=== PATIENT | female | born 2000 | race Caucasian/White ===

== ENCOUNTER 2018-05-16 02:29 | Emergency (ER) | payer OTHER, SELFPAY ==
--- OUTSIDE RECORDS SUMMARY | 2018-05-16 02:31 | XMS REPORT ---
:2000 [facility] Address [address] [place] [address] Dr. Carrington [address] [place] [id number] Care Team Providers Name Role Phone Unavailable Unavailable Unavailable Problems This patient has no known problems. Allergies, Adverse Reactions, Alerts This patient has no known allergies or adverse reactions. Medications This patient has no known medications.
--- NOTE | 2018-05-16 03:23 | EDPHYS ---
Physician Documentation [facility] Name: Marla Harmon Age: 17 yrs Sex: Female : 2000 Arrival Date: 05/16/2018 Time: 02:32 Bed 16 Private MD: ED Physician Parvez Sheth HPI: 05/16 03:12 This 17 yrs old Female presents to ER via Ambulatory with complaints of WILL roni TALK TO NURSE. 03:12 The patient presents with a possible exposure to a sexually transmitted disease, roni chlamydia. Onset: The symptoms/episode began/occurred 3 week(s) ago. Modifying factors: The symptoms are alleviated by nothing, the symptoms are aggravated by nothing. Associated signs and symptoms: The patient has no apparent associated signs or symptoms. Severity of symptoms: At their worst the symptoms were mild, in the emergency department the symptoms are unchanged. The patient is sexually active, reportedly has a single partner. The patient has not experienced similar symptoms in the past. 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 - Social history:: Smoking status: Patient uses tobacco products, denies chronic smoking, but will smoke occasionally. - Ebola Screening: : No symptoms or risks identified at this time. - Family history:: not pertinent. ROS: 03:12 Constitutional: Negative for fever, chills, and weight loss, Eyes: Negative for injury, roni pain, redness, and discharge, ENT: Negative for injury, pain, and discharge, Neck: Negative for injury, pain, and swelling, Cardiovascular: Negative for chest pain, palpitations, and edema, Respiratory: Negative for shortness of breath, cough, wheezing, and pleuritic chest pain, Abdomen/GI: Negative for abdominal pain, nausea, vomiting, diarrhea, and constipation, Back: Negative for injury and pain, : Negative for injury, bleeding, discharge, and swelling, Skin: Negative for injury, rash, and discoloration, Neuro: Negative for headache, weakness, numbness, tingling, and seizure, Psych: Negative for depression, anxiety, suicide ideation, homicidal ideation, and hallucinations, Allergy/Immunology: Negative for hives, rash, and allergies, Endocrine: Negative for neck swelling, polydipsia, polyuria, polyphagia, and marked weight changes, Hematologic/Lymphatic: Negative for swollen nodes, abnormal bleeding, and unusual bruising. 03:12 MS/extremity: Positive for pain. Exam: 03:12 Constitutional: This is a well developed, well nourished patient who is awake, alert, roni and in no acute distress. Head/Face: Normocephalic, atraumatic. Eyes: Pupils equal round and reactive to light, extra-ocular motions intact. Lids and lashes normal. Conjunctiva and sclera are non-icteric and not injected. Cornea within normal limits. Periorbital areas with no swelling, redness, or edema. ENT: Nares patent. No nasal discharge, no septal abnormalities noted. Tympanic membranes are normal and external auditory canals are clear. Oropharynx with no redness, swelling, or masses, exudates, or evidence of obstruction, uvula midline. Mucous membranes moist. Neck: Trachea midline, no thyromegaly or masses palpated, and no cervical lymphadenopathy. Supple, full range of motion without nuchal rigidity, or vertebral point tenderness. No Meningismus. Chest/axilla: Normal chest wall appearance and motion. Nontender with no deformity. No lesions are appreciated. Cardiovascular: Regular rate and rhythm with a normal S1 and S2. No gallops, murmurs, or rubs. Normal PMI, no JVD. No pulse deficits. Respiratory: Lungs have equal breath sounds bilaterally, clear to auscultation and percussion. No rales, rhonchi or wheezes noted. No increased work of breathing, no retractions or nasal flaring. Abdomen/GI: Soft, non-tender, with normal bowel sounds. No distension or tympany. No guarding or rebound. No evidence of tenderness throughout. Back: No spinal tenderness. No costovertebral tenderness. Full range of motion. Female : Normal external genitalia. Skin: Warm, dry with normal turgor. Normal color with no rashes, no lesions, and no evidence of cellulitis. MS/ Extremity: Pulses equal, no cyanosis. Neurovascular intact. Full, normal range of motion. Neuro: Awake and alert, GCS 15, oriented to person, place, time, and situation. Cranial nerves II-XII grossly intact. Motor strength 5/5 in all extremities. Sensory grossly intact. Cerebellar exam normal. Normal gait. Psych: Awake, alert, with orientation to person, place and time. Behavior, mood, and affect are within normal limits. Vital Signs: 02:49 BP 126 / 80; Pulse 103; Resp 18 S; Temp 98.4(O); Pulse Ox 100% on R/A; Weight 108.86 kg bb (R); Height 5 ft. 9 in. (175.26 cm) (R); Pain 6/10; 04:00 BP 121 / 82; Pulse 100; Resp 17; Pulse Ox 98% ; rr5 02:49 Body Mass Index 35.44 (108.86 kg, 175.26 cm) MDM: 02:50 Patient medically screened. [facility] 03:14 Data reviewed: vital signs, nurses notes, lab test result(s). [facility] 05/16 03:12 Order name: Urine Culture [facility] 05/16 03:42 Order name: Urine Dipstick--Ancillary (enter results) mn 05/16 03:42 Order name: Urine --Ancillary (enter results) mn 05/16 03:12 Order name: Urine Dipstick-Ancillary (obtain specimen); Complete Time: 03:44 [facility] 05/16 03:12 Order name: Urine Test (obtain specimen); Complete Time: 03:44 [facility] Administered Medications: 03:38 CANCELLED (Duplicate Order): Rocephin (cefTRIAXone) 500 mg IM once [facility] 03:50 Drug: Bactrim (160 mg-800 mg (DS) 1 tablet Route: PO; rr5 04:30 Follow up: Response: No adverse reaction rr5 03:51 Drug: Doxycycline 100 mg Route: PO; rr5 04:30 Follow up: Response: No adverse reaction rr5 03:54 Drug: Zithromax 1 grams Route: PO; rr5 04:30 Follow up: Response: No adverse reaction rr5 03:55 Drug: Rocephin (cefTRIAXone) 1 grams Route: IM; Site: left gluteus; rr5 04:30 Follow up: Response: No adverse reaction rr5 Disposition: 05/16/18 03:22 Discharged to Home. Impression: Pelvic and perineal pain - fear of std, Urinary tract infection, site not specified. - Condition is Stable. - Discharge Instructions: Dysuria, Pelvic Pain, Female, Sexually Transmitted Disease, Sexually Transmitted Disease, Kryt-yh-Vxcp, Pelvic Pain, Female, Vmml-uy-Nzmt. - Prescriptions for Doxycycline Hyclate 100 mg Oral Tablet - take 1 tablet by ORAL route every 12 hours; 20 tablet. Bactrim DS 800- 160 mg Oral Tablet - take 1 tablet by ORAL route every 12 hours for 5 days; 10 tablet. - Medication Reconciliation Form, Thank You Letter, Antibiotic Education, Prescription Opioid Use form. - Follow up: Private Physician; When: 2 - 3 days; Reason: Recheck today's complaints, Continuance of care, Re-evaluation by your physician. - Problem is new. - Symptoms have improved. Signatures: Dispatcher [employer] EDMS Parvez Sheth MD MD cha Ballard, Brenda, RN RN Ezio Alexandre RN RN rr5 Corrections: (The following items were deleted from the chart) 03:38 03:12 Rocephin (cefTRIAXone) 500 mg IM once ordered. [facility] 03:39 03:22 05/16/2018 03:22 Discharged to Home. Impression: Pelvic and perineal pain - fear roni of std. Condition is Stable. Forms are Medication Reconciliation Form, Thank You Letter, Antibiotic Education, Prescription Opioid Use. Follow up: Private Physician; When: 2 - 3 days; Reason: Recheck today's complaints, Continuance of care, Re-evaluation by your physician. Problem is new. Symptoms have improved. [facility] 04:31 03:39 05/16/2018 03:22 Discharged to Home. Impression: Pelvic and perineal pain - fear rr5 of std; Urinary tract infection, site not specified. Condition is Stable. Discharge Instructions: Pelvic Pain, Female, Sexually Transmitted Disease, Sexually Transmitted Disease, Evse-wt-Znml, Pelvic Pain, Female, Pcdh-ls-Eawy. Prescriptions for Doxycycline Hyclate 100 mg Oral Tablet - take 1 tablet by ORAL route every 12 hours; 20 tablet. and Forms are Medication Reconciliation Form, Thank You Letter, Antibiotic Education, Prescription Opioid Use. Follow up: Private Physician; When: 2 - 3 days; Reason: Recheck today's complaints, Continuance of care, Re-evaluation by your physician. Problem is new. Symptoms have improved. roni
--- NOTE | 2018-05-16 03:23 | ER ---
Nurse's Notes [facility] Name: Marla Harmon Age: 17 yrs Sex: Female : 2000 Arrival Date: 05/16/2018 Time: 02:32 Bed 16 Private MD: Diagnosis: Pelvic and perineal pain-fear of std;Urinary tract infection, site not specified Presentation: 05/16 02:46 Presenting complaint: Patient states: she either has a UTI or an STI pt may have been bb exposed to chlamydia, symptoms are burning with urination which started yesterday morning states she only has a normal vaginal discharge. Transition of care: patient was not received from another setting of care. Onset of symptoms was May 14, 2018. Risk Assessment: Do you want to hurt yourself or someone else? Patient reports no desire to harm self or others. Initial Sepsis Screen: Does the patient meet any 2 criteria? No. Patient's initial sepsis screen is negative. Does the patient have a suspected source of infection? No. Patient's initial sepsis screen is negative. Care prior to arrival: None. 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 - Social history:: Smoking status: Patient uses tobacco products, denies chronic smoking, but will smoke occasionally. - Ebola Screening: : No symptoms or risks identified at this time. - Family history:: not pertinent. Screenin:30 Abuse screen: Denies threats or abuse. Denies injuries from another. Nutritional rr5 screening: No deficits noted. Tuberculosis screening: No symptoms or risk factors identified. Fall Risk None identified. Total Key Fall Scale indicates No Risk (0-24 pts). Assessment: 03:30 General: Appears in no apparent distress. comfortable, Behavior is calm, cooperative, rr5 appropriate for age. Pain: Complains of pain in pelvis Pain does not radiate. Pain Quality of pain is described as aching, Pain began gradually, Is intermittent. Neuro: Level of Consciousness is awake, alert, obeys commands, Oriented to person, place, time, situation, Appropriate for age. Cardiovascular: Capillary refill < 3 seconds Patient's skin is warm and dry. Respiratory: Airway is patent Respiratory effort is even, unlabored, Respiratory pattern is regular, symmetrical. GI: No signs and/or symptoms were reported involving the gastrointestinal system. : Reports pelvic pain, exposed to person with STD. 03:30 EENT: No signs and/or symptoms were reported regarding the EENT system. Derm: No signs rr5 and/or symptoms reported regarding the dermatologic system. Musculoskeletal: No signs and/or symptoms reported regarding the musculoskeletal system. 04:20 Reassessment: Patient appears in no apparent distress at this time. Patient is alert, rr5 oriented x 3, equal unlabored respirations, skin warm/dry/pink. discharge instruction given and explained without complaints made. Vital Signs: 02:49 BP 126 / 80; Pulse 103; Resp 18 S; Temp 98.4(O); Pulse Ox 100% on R/A; Weight 108.86 kg bb (R); Height 5 ft. 9 in. (175.26 cm) (R); Pain 6/10; 04:00 BP 121 / 82; Pulse 100; Resp 17; Pulse Ox 98% ; rr5 02:49 Body Mass Index 35.44 (108.86 kg, 175.26 cm) bb ED Course: 02:32 Patient arrived in ED. es 02:48 Triage completed. bb 02:49 Arm band placed on Patient placed in an exam room, on a stretcher, on pulse oximetry. bb 02:50 Parvez Sheth MD is Attending Physician. roni 03:27 Ezio Mercado RN is Primary Nurse. rr5 03:30 Patient has correct armband on for positive identification. Bed in low position. Pulse rr5 ox on. NIBP on. 04:28 No provider procedures requiring assistance completed. Patient did not have IV access rr5 during this emergency room visit. Administered Medications: 03:38 CANCELLED (Duplicate Order): Rocephin (cefTRIAXone) 500 mg IM once roni 03:50 Drug: Bactrim (160 mg-800 mg (DS) 1 tablet Route: PO; rr5 04:30 Follow up: Response: No adverse reaction rr5 03:51 Drug: Doxycycline 100 mg Route: PO; rr5 04:30 Follow up: Response: No adverse reaction rr5 03:54 Drug: Zithromax 1 grams Route: PO; rr5 04:30 Follow up: Response: No adverse reaction rr5 03:55 Drug: Rocephin (cefTRIAXone) 1 grams Route: IM; Site: left gluteus; rr5 04:30 Follow up: Response: No adverse reaction rr5 Outcome: 03:22 Discharge ordered by MD. tamayo 04:28 Discharged to home ambulatory. rr5 04:28 Condition: stable 04:28 Discharge instructions given to patient, Instructed on discharge instructions, follow up and referral plans. medication usage, Demonstrated understanding of instructions, follow-up care, medications, Prescriptions given X 2. 04:31 Patient left the ED. rr5 Signatures: Parvez Sheth MD MD cha Salyer, Edna es Ballard, Brenda, RN RN Ezio Alexandre RN RN rr5
[2018-05-16] MEDS ORDERED: AZITHROMYCIN 250 MG TAB ONE (03:53)
[2018-05-16] MEDS ORDERED: SMZ./TMP. 800/160 MG TABLET ONE (03:53)
[2018-05-16] MEDS ORDERED: CEFTRIAXONE 1000 MG/VIAL ONE (03:53)
[2018-05-16] MEDS ORDERED: DOXYCYCLINE 100 MG CAP PO ONE (03:53)
[2018-05-16] MEDS ORDERED: WATER FOR INJ,STERILE 10 ML ONE (03:54)
[2018-05-16 04:18] LABS: Urine Blood 3+ (NEG); Urine Glucose NEGATIVE (NEG); Urine Protein 3+ (NEG); Urine Specific Gravity >1.030 (1.005-1.030)
[2018-05-16 04:38] VITALS: TEMP 98.4
[2018-05-16 04:39] VITALS: BP 121/82; O2SAT 98
== END 2018-05-16 04:31 | disposition home or self-care (01) ==
LOC: ER 02:29
DX: N39.0 Urinary tract infection, site not specified (principal); R10.2 Pelvic and perineal pain; Z20.2 Contact with and (suspected) exposure to infections with a predominantly sexual mode of transmission; Z72.0 Tobacco use
CPT/HCPCS: 81003; 81025; 87086; 87088; 96372; 99283

== ENCOUNTER 2019-06-11 12:04 | Emergency (ER) | payer SELFPAY ==
--- OUTSIDE RECORDS SUMMARY | 2019-06-11 12:06 | XMS REPORT ---
:2000 [facility] Address [address] [place] [address] Dr. Carrington [address] [place] [id number] Care Team Providers Name Role Phone Unavailable Unavailable Unavailable Problems This patient has no known problems. Allergies, Adverse Reactions, Alerts This patient has no known allergies or adverse reactions. Medications This patient has no known medications.
--- OUTSIDE RECORDS SUMMARY | 2019-06-11 12:06 | XMS REPORT | Summary of Care ---
:2000 Author Organization [facility] Address [address] [place] [id number] Care Team Providers Name Role Phone Aicha Mora [facility] Primary Care Provider Reason for Visit Reason Comments Follow-up Encounter Details Date Type Department Care Team Description 10/31/2018 Office Visit [facility]- Aicha Mora, Breakthrough bleeding on Nexplanon (Primary Dx); [facility] Chlamydia trachomatis infection of lower genitourinary sites [address] [facility] [address] [place] [address] [phone] Allergies No Known Allergiesdocumented as of this encounter (statuses as of 10/31/2018) Medications Medication Sig Dispensed Refills Start Date End Date Status azithromycin 500 mg TAKE 2 0 08/31/2018 Active tablet TABLETS BY MOUTH ONCE NOW FOR 1 DOSE diphenhydrAMINE Take 25 mg by 0 Discontinued (BENADRYL) 25 mg mouth every 6 9 capsule (six) hours as needed for Allergies. hydrocortisone 0.5 % Apply to 30 g 0 05/27/2015 Discontinued cream area(s) 2 9 (two) times daily. ecbdhcwv-yvltbofuw-on Place 4 Drops 10 mL 1 11/04/2015 Discontinued drocortisone in both ears 9 (CORTISPORIN OTIC 4 (four) SUSPENSION) times daily. 3.5-10,000-1 mg/mL-unit/mL-% otic susp documented as of this encounter (statuses as of 10/31/2018) Active Problems Problem Noted Date Breakthrough bleeding on Nexplanon 08/29/2018 Chlamydia trachomatis infection of lower genitourinary sites 08/29/[address] 07/19/2018 Well woman exam 07/03/2018 Contraceptive management 07/03/2018 Obesity (BMI 30-39.9) 07/03/2018 documented as of this encounter (statuses as of 10/31/2018) Immunizations Name Administration Dates Next Due HPV9 09/07/2018, 07/03/2018 documented as of this encounter Social History Tobacco Use Types Packs/Day Years Used Date Current Every Day Smoker Cigarettes 0.1 Started: 07/03/2016 Smokeless Tobacco: Never Used Alcohol Use Drinks/Week oz/Week Comments No Sex Assigned at Date Recorded Not on file Job Start Date Occupation Industry Not on file Not on file Not on file Travel History Travel Start Travel End No recent travel history available. documented as of this encounter Last Filed Vital Signs Vital Sign Reading Time Taken Comments Blood Pressure 122/72 10/31/2018 3:46 PM CDT Pulse 60 10/31/2018 3:46 PM CDT Temperature 36.9 C (98.5 F) 10/31/2018 3:46 PM CDT Respiratory Rate 16 10/31/2018 3:46 PM CDT Oxygen Saturation - - Inhaled Oxygen Concentration - - Weight 122.1 kg (269 lb 4 oz) 10/31/2018 3:46 PM CDT Height 175.3 cm (5' 9") 10/31/2018 3:46 PM CDT Body Mass Index 39.76 10/31/2018 3:46 PM CDT documented in this encounter Progress Notes Aicha Mora, JESSA - 10/31/2018 4:00 PM CDT Chief complaint: Chief Complaint Patient presents with Follow-up HPI Marla Harmon is a 17 year old here for follow up on breakthrough bleeding with nexplanon and chlamydia BOB. Pt reports bleeding is still irregular and frequent, but not as bothersome as previously. She is also concerned Nexplanon is making her gain weight and breasts sensitive. She does report excessive caffeine intake. Pt and partner treated for chlamydia with azithromycin on 09/04/18. Patient reports they did not wait 1-2 weeks to resume intercourse. Histories OB History Para Term AB Living 1 1 1 1 SAB TAB Ectopic Multiple Live Births 1 # Outcome Date GA Lbr Jakub/2nd Weight Sex Delivery Anes PTL Lv 1 Term 05/03/17 37w0d 7 lb 5 oz (3.317 kg) M NORMAL SPONT HANSEL Past Medical History: Diagnosis Date Anemia Ongoing, not on meds Breakthrough bleeding on Nexplanon 08/29/2018 Hypertension 2017 During Family History Problem Relation Age of Onset Heart Mother High cholesterol Brother Arthritis Maternal Grandmother Heart Maternal Grandmother Diabetes Maternal Grandmother Hypertension Maternal Grandmother Family Status Relation Name Status Mo Alive Bro Alive MGMo Alive No past surgical history on file. Social History Socioeconomic History Marital status: Single Spouse name: Not on file Number of children: Not on file Years of education: Not on file Highest education level: Not on file Occupational History Not on file Social Needs Financial resource strain: Not on file Food insecurity: Worry: Not on file Inability: Not on file Transportation needs: Medical: Not on file Non-medical: Not on file Tobacco Use Smoking status: Current Every Day Smoker Packs/day: 0.10 Types: Cigarettes Start date: 07/03/2016 Smokeless tobacco: Never Used Substance and Sexual Activity Alcohol use: No Drug use: No Sexual activity: Yes Partners: Male control/protection: None Comment: Last intercourse 06/25/2018 Lifestyle Physical activity: Days per week: Not on file Minutes per session: Not on file Stress: Not on file Relationships Social connections: Talks on phone: Not on file Gets together: Not on file Attends caodaism service: Not on file Active member of club or organization: Not on file Attends meetings of clubs or organizations: Not on file Relationship status: Not on file Intimate partner violence: Fear of current or ex partner: Not on file Emotionally abused: Not on file Physically abused: Not on file Forced sexual activity: Not on file Other Topics Concern Not on file Social History Narrative Patient lives with mom, grandmother. Patient feels safe at home. Patient has two cats. Social History Substance and Sexual Activity Sexual Activity Yes Partners: Male control/protection: None Comment: Last intercourse 06/25/2018 Labs I have reviewed the patient's labs. and Labs are pending. Radiology No new radiology. Allergies Marla has No Known Allergies. Medications Marla has a current medication list which includes the following prescription(s ): azithromycin. Review of Systems Constitutional: Positive for weight gain. Breasts: sensitivity Genitourinary: Positive for vaginal bleeding. Endocrine: Positive for weight gain. BP 122/72 (BP Location: Right arm, Patient Position: Sitting, BP CUFF SIZE: Adult Small) | Pulse 60 | Temp 36.9 C (98.5 F) (Oral) | Resp 16 | Ht 5' 9 " (1.753 m) | Wt 269 lb 4 oz (122.1 kg) | LMP 10/28/2018 (Approximate) | BMI 39.76 kg/m Pregravid BMI: Could not be calculated Physical Exam Vitals reviewed. Constitutional: She is oriented to person, place, and time. She appears well- developed and well-nourished. Her body habitus is obese. Pulmonary/Chest: Normal inspiratory effort. Neuro/Psychiatric: She has a normal mood and affect. She is oriented to person, place, and time. Assessment/Plan 1. Breakthrough bleeding on Nexplanon Improving, continue to monitor, patient will RTC if still bothersome in 2 months. Reviewed patient weight chart, no significant weight gain since Nexplanon insertion. Reviewed healthy diet and exerciserecommendations. Encouraged well fitting, supportive bra, avoidance of caffeinated beverages, chocolate, peanut butter, and OTC vitamin E supplement 2. Chlamydia trachomatis infection of lower genitourinary sites BOB today, Reviewed safe sex practices - GC & CHLAMYDIA AMPLIFIED ASSAY Discussed treatment options. Reviewed patient instructions and provided printed copy. This visit did not involve counseling and coordination that comprised more than 50% of the visit time. documented in this encounter Plan of Treatment Date Type Specialty Care Team Description 12/10/2018 [facility] Name Type Priority Associated Diagnoses Date/Time GC & CHLAMYDIA LAB Routine Chlamydia trachomatis 10/31/2018 3:56 PM AMPLIFIED ASSAY infection of lower CDT genitourinary sites Health Maintenance Due Date Last Done Comments PNEUMOCOCCAL 0-64 YEARS 2004 COMBINED SERIES (1 of 1 - PPSV23) MENINGOCOCCAL B VACCINES (1 of 2008 2 - Risk Bexsero 2-dose series) DTaP,Tdap,and Td Vaccines (1 - 2017 Tdap) INFLUENZA VACCINE 12/02/2018 HPV VACCINES (3 - Female 01/02/2019 09/07/2018, 3-dose series) 07/03/2018 CHLAMYDIA SCREENING 08/30/2019 08/29/2018, 07/03/2018 MENINGOCOCCAL VACCINE Aged Out No longer eligible based on patient's age to complete this topic documented as of this encounter Goals Goal Patient Goal Associated Recent Patient-Stated? Author Type Problems Progress Quit using Tobacco Use No bety Bolivar RN (cigarettes, smokeless, etc) documented as of this encounter Results Not on filedocumented in this encounter Visit Diagnoses Diagnosis Breakthrough bleeding on Nexplanon - Primary Metrorrhagia Chlamydia trachomatis infection of lower genitourinary sites documented in this encounter Insurance Payer Benefit Plan Subscriber ID Effective Phone Address Type / Group [facility] xxxxxxxxx 2018-Pres [phone] [place] [id number] [place] [address] documented as of this encounter Advance Directives Name Relationship Healthcare Agent Relationship Communication Tonya Harmon Mother Primary healthcare agent [facility]
--- OUTSIDE RECORDS SUMMARY | 2019-06-11 12:07 | XMS REPORT | Summary of Care ---
:2000 Author Organization [facility] Address [address] [place] [address] Care Team Providers Name Role Phone Aicha Mora Primary Care Provider Reason for Visit Reason Comments Appointment Encounter Details Date Type Department Care Team Description 12/19/[address] [facility] [address] [place] [address] [facility] [phone] [place] [address] Allergies No Known Allergiesdocumented as of this encounter (statuses as of 12/20/2018) Medications Medication Sig Dispensed Refills Start Date End Date Status azithromycin 500 mg TAKE 2 TABLETS BY 0 08/31/2018 Active tablet MOUTH ONCE NOW FOR 1 DOSE documented as of this encounter (statuses as of 12/20/2018) Active Problems Problem Noted Date Breakthrough bleeding on Nexplanon 08/29/2018 Chlamydia trachomatis infection of lower genitourinary sites 08/29/[address] 07/19/2018 Well woman exam 07/03/2018 Contraceptive management 07/03/2018 Obesity (BMI 30-39.9) 07/03/2018 documented as of this encounter (statuses as of 12/20/2018) Immunizations Name Administration Dates Next Due HPV9 [...] of this encounter Last Filed Vital Signs Not on filedocumented in this encounter Plan of Treatment Health Maintenance Due Date Last Done Comments PNEUMOCOCCAL 0-64 YEARS 2004 COMBINED SERIES (1 of 1 - PPSV23) MENINGOCOCCAL B VACCINES (1 of 2008 2 - Risk Bexsero 2-dose series) DTaP,Tdap,and Td Vaccines (1 - 2017 Tdap) INFLUENZA VACCINE (#1) 2018 HPV VACCINES (3 - Female 01/02/2019 09/07/2018, 3-dose series) 07/03/2018 CHLAMYDIA SCREENING 11/01/2019 10/31/2018, 08/29/2018, 07/03/2018 MENINGOCOCCAL VACCINE Aged Out No longer eligible based on patient's age to complete this topic documented as of this encounter Goals Goal Patient Goal Associated Recent Patient-Stated? Author Type Problems Progress Quit using Tobacco Use No bety Bolivar RN (cigarettes, smokeless, etc) documented as of this encounter Results Not on filedocumented in this encounter Insurance Payer Benefit Plan Subscriber ID Effective Phone Address Type / Group Dates [facility] xxxxxxxxx 2018-Prese [phone] Medicaid WOMEN nt 2006 [place] [address] documented as of this encounter Advance Directives Name Relationship Healthcare Agent Relationship Communication Tonya Eden Mother Primary healthcare agent Chris Jules Stepchild Second alternate healthcare agent
--- OUTSIDE RECORDS SUMMARY | 2019-06-11 12:07 | XMS REPORT | Summary of Care ---
:2000 Author Organization [facility] Address [address] [place] [address] Care Team Providers Name Role Phone Aicha Mora [facility] Primary Care Provider Reason for Visit Reason Comments Follow-up Encounter Details Date Type Department Care Team Description 10/31/2018 Office Visit [facility] Mora, Breakthrough bleeding on Nexplanon (Primary Dx); [facility] Chlamydia trachomatis infection of lower genitourinary sites [address] [facility] [address] [place] [address] [phone] Allergies No Known Allergiesdocumented as of this [...] cream area(s) 2 9 (two) times daily. [id number] Place 4 Drops 10 mL 1 11/04/2015 [...] file Gets together: Not on file Attends sikh service: Not on file Active member of [...] Description 12/10/2018 [facility] Name Type Priority Associated Diagnoses [...] ID Effective Phone Address Type / Group [facility] xxxxxxxxx 2018-Pres [phone] [address] Medicaid [place]OMEN nt [id number] [place] [address] documented as of this encounter Advance Directives Name Relationship Healthcare Agent Relationship Communication Tonya Harmon Mother Primary healthcare agent Chris Jules [facility]
--- OUTSIDE RECORDS SUMMARY | 2019-06-11 12:07 | XMS REPORT | Summary of Care ---
:2000 Author Organization [facility] - Health Address [address] [place] [address] Care Team Providers Name Role Phone Morgan Aicha GERMAIN Primary Care Provider Encounter Details Date Type Department Care Team Description 12/11/2018 Orders Only [facility] Doctor Unassigned, No [address] [facility] [place] [address] Allergies No Known Allergiesdocumented as of this encounter (statuses as of 12/11/2018) Medications Medication Sig Dispensed Refills Start Date End Date Status azithromycin 500 mg TAKE 2 TABLETS BY 0 08/31/2018 Active tablet MOUTH ONCE NOW FOR 1 DOSE documented as of this encounter (statuses as of 12/11/2018) Active Problems Problem Noted Date Breakthrough bleeding on Nexplanon 08/29/2018 Chlamydia trachomatis infection of lower genitourinary sites 08/29/[address] 07/19/2018 Well woman exam 07/03/2018 Contraceptive management 07/03/2018 Obesity (BMI 30-39.9) 07/03/2018 documented as of this encounter (statuses as of 12/11/2018) Immunizations Name Administration Dates Next Due HPV9 [...] filedocumented in this encounter Plan of Treatment Date Type Specialty Care Team Description 12/19/2018 Nurse Visit OB Satellites Visit, [facility] Nurse Health Maintenance Due Date Last Done Comments [...] smokeless, etc) documented as of this encounter Procedures Procedure Name Priority Date/Time Associated Diagnosis Comments NO SHOW OR MISSED Routine 12/11/2018 2:28 PM APPOINTMENT POLICY CDT ACKNOWLEDGEMENT documented in this encounter Results Not on filedocumented in this encounter Insurance Payer Benefit Plan Subscriber ID Effective Phone Address Type / Group Dates [facility] xxxxxxxxx 2018-Preskarli [phone] Medicaid WOMEN nt 2006 [place] [address] documented as of this encounter Advance Directives Name Relationship Healthcare Agent Relationship Communication Tonya Eden Mother Primary healthcare agent Chris Jules Steptrang Second alternate healthcare agent
--- NOTE | 2019-06-11 12:29 | ER ---
Nurse's Notes [facility] Name: Marla Harmon Age: 18 yrs Sex: Female : 2000 Arrival Date: 06/11/2019 Time: 12:05 Bed 12 Private MD: Diagnosis: Acute lymphadenitis of face, head and neck;Acute suppurative otitis media Presentation: 06/10 12:19 Chief complaint: Patient states: L ear pain that began 4 days ago. Coronavirus screen: ss The patient has NOT traveled to a country currently being monitored by the [facility][NOTE 3] within the last 14 days. Proceed with normal triage procedures. Ebola Screen: Patient denies exposure to infectious person. Patient denies travel to an Ebola-affected area in the 21 days before illness onset. Initial Sepsis Screen: Does the patient meet any 2 criteria? No. Patient's initial sepsis screen is negative. Does the patient have a suspected source of infection? No. Patient's initial sepsis screen is negative. Risk Assessment: Do you want to hurt yourself or someone else? Patient reports no desire to harm self or others. 12:19 Method Of Arrival: Ambulatory ss 12:19 Acuity: NOLBERTO 5 ss Historical: - Allergies: 12:21 NKDA; ss - Home Meds: 12:21 None [Active]; ss - PMHx: 12:21 None; ss - PSHx: 12:21 None; ss - Immunization history:: Adult Immunizations up to date. - Social history:: Smoking status: Patient reports the use of cigarette tobacco products, smokes one-half pack cigarettes per day. Screenin:30 Abuse screen: Denies threats or abuse. Denies injuries from another. Nutritional ss screening: No deficits noted. Tuberculosis screening: Never had TB. Fall Risk None identified. Assessment: 12:30 General: Appears uncomfortable, Behavior is calm, cooperative. Pain: Complains of pain ss in left ear Pain currently is 6 out of 10 on a pain scale. Quality of pain is described as aching. Neuro: Level of Consciousness is awake, alert, obeys commands, Oriented to person, place, time, situation. Cardiovascular: Capillary refill < 3 seconds is brisk in bilateral fingers. Respiratory: Airway is patent Respiratory effort is even, unlabored, Respiratory pattern is regular, symmetrical. EENT: Oral mucosa is moist. Derm: Skin is intact, is healthy with good turgor, Skin is dry, Skin is pink, warm \T\ dry. normal. Musculoskeletal: Circulation, motion, and sensation intact. Range of motion: intact in all extremities. Vital Signs: 12:19 BP 108 / 85; Pulse 98; Resp 14; Temp 98.1(TE); Pulse Ox 98% on R/A; Height 5 ft. 9 in. ss (175.26 cm); Pain 6/10; ED Course: 12:05 Patient arrived in ED. rg4 12:19 Edna Kennedy, NIRMAL is Primary Nurse. ss 12:20 Rene Leigh PA is PHCP. jr8 12:20 Kristian Waller MD is Attending Physician. jr8 12:20 Triage completed. ss 12:21 Arm band placed on right wrist. ss 12:30 Patient has correct armband on for positive identification. Bed in low position. Call ss light in reach. 12:42 No provider procedures requiring assistance completed. Patient did not have IV access ss during this emergency room visit. Administered Medications: No medications were administered Outcome: 12:29 Discharge ordered by . jr8 12:42 Discharged to home ambulatory. ss 12:42 Condition: good 12:42 Discharge instructions given to patient, Instructed on discharge instructions, follow up and referral plans. medication usage, Demonstrated understanding of instructions, follow-up care, medications, Prescriptions given X 1. 12:43 Patient left the ED. ss Signatures: Edna Kennedy RN RN Rene Leigh PA PA jr8 Maria R Rios rg4
--- NOTE | 2019-06-11 12:29 | EDPHYS ---
Physician Documentation [facility] Name: Marla Harmon Age: 18 yrs Sex: Female : 2000 Arrival Date: 06/11/2019 Time: 12:05 Bed 12 Private MD: ED Physician Kristian Waller HPI: 06/10 12:26 This 18 yrs old Female presents to ER via Ambulatory with complaints of Ear jr8 Pain. 12:26 The patient presents with pain, tenderness. The complaints affect the left ear. Onset: jr8 The symptoms/episode began/occurred acutely, yesterday. Modifying factors: The symptoms are alleviated by nothing, the symptoms are aggravated by touching. Associated signs and symptoms: The patient has no apparent associated signs or symptoms. Severity of symptoms: At their worst the symptoms were mild in the emergency department the symptoms are unchanged. The patient has not experienced similar symptoms in the past. The patient has not recently seen a physician. Historical: - Allergies: 12:21 NKDA; ss - Home Meds: 12:21 None [Active]; ss - PMHx: 12:21 None; ss - PSHx: 12:21 None; ss - Immunization history:: Adult Immunizations up to date. - Social history:: Smoking status: Patient reports the use of cigarette tobacco products, smokes one-half pack cigarettes per day. ROS: 12:26 Eyes: Negative for injury, pain, redness, and discharge, Neck: Negative for injury, jr8 pain, and swelling, Cardiovascular: Negative for chest pain, palpitations, and edema, Respiratory: Negative for shortness of breath, cough, wheezing, and pleuritic chest pain, Abdomen/GI: Negative for abdominal pain, nausea, vomiting, diarrhea, and constipation, Back: Negative for injury and pain, Skin: Negative for injury, rash, and discoloration, Neuro: Negative for headache, weakness, numbness, tingling, and seizure. 12:26 ENT: Positive for ear pain. Exam: 12:26 Head/Face: Normocephalic, atraumatic. Eyes: Pupils equal round and reactive to light, jr8 extra-ocular motions intact. Lids and lashes normal. Conjunctiva and sclera are non-icteric and not injected. Cornea within normal limits. Periorbital areas with no swelling, redness, or edema. Cardiovascular: Regular rate and rhythm with a normal S1 and S2. No gallops, murmurs, or rubs. Normal PMI, no JVD. No pulse deficits. Respiratory: Lungs have equal breath sounds bilaterally, clear to auscultation and percussion. No rales, rhonchi or wheezes noted. No increased work of breathing, no retractions or nasal flaring. Abdomen/GI: Soft, non-tender, with normal bowel sounds. No distension or tympany. No guarding or rebound. No evidence of tenderness throughout. Back: No spinal tenderness. No costovertebral tenderness. Full range of motion. Skin: Warm, dry with normal turgor. Normal color with no rashes, no lesions, and no evidence of cellulitis. MS/ Extremity: Pulses equal, no cyanosis. Neurovascular intact. Full, normal range of motion. Neuro: Awake and alert, GCS 15, oriented to person, place, time, and situation. Cranial nerves II-XII grossly intact. Motor strength 5/5 in all extremities. Sensory grossly intact. Cerebellar exam normal. Normal gait. 12:26 ENT: Exam is negative for nasal discharge, pharyngitis, exudate, External ear(s): are unremarkable, Ear canal(s): are normal, clear, TM's: dullness, on the left, erythema, that is mild, on the left. 12:26 Neck: ROM/movement: is normal, pain, is not appreciated, limited range of motion, is not appreciated, Meningeal signs: are not present, Kernig's sign is negative, Brudzinski's sign is negative, Lymph nodes: lymphadenopathy is appreciated, post auricular nodes, left side. Vital Signs: 12:19 BP 108 / 85; Pulse 98; Resp 14; Temp 98.1(TE); Pulse Ox 98% on R/A; Height 5 ft. 9 in. ss (175.26 cm); Pain 6/10; MDM: 12:20 Patient medically screened. 8 12:26 Data reviewed: vital signs, nurses notes, and as a result, I will discharge patient. jr8 Data interpreted: Pulse oximetry: on room air is 98 %. Interpretation: normal. Counseling: I had a detailed discussion with the patient and/or guardian regarding: the historical points, exam findings, and any diagnostic results supporting the discharge/admit diagnosis, the need for outpatient follow up, a family practitioner, to return to the emergency department if symptoms worsen or persist or if there are any questions or concerns that arise at home. Administered Medications: No medications were administered Disposition: 13:02 Co-signature as Attending Physician, Kristian Waller MD. rn Disposition: 06/11/19 12:29 Discharged to Home. Impression: Acute lymphadenitis of face, head and neck, Acute suppurative otitis media. - Condition is Stable. - Discharge Instructions: Otitis Media, Adult, Lymphadenopathy. - Prescriptions for Amoxicillin 875 mg Oral Tablet - take 1 tablet by ORAL route every 12 hours for 10 days; 20 tablet. - Medication Reconciliation Form, Thank You Letter, Antibiotic Education, Prescription Opioid Use form. - Follow up: Private Physician; When: 7 - 10 days; Reason: Recheck today's complaints, Continuance of care, Re-evaluation by your physician. - Problem is new. - Symptoms are unchanged. - Notes: Motrin over the counter 400-600 mg every 6 hours as needed for pain Signatures: Kristian Waller MD MD rn Smirch, Shelby, RN RN ss Roszak, Josh, PA PA jr8 Corrections: (The following items were deleted from the chart) 12:43 12:29 06/11/2019 12:29 Discharged to Home. Impression: Acute lymphadenitis of face, ss head and neck; Acute suppurative otitis media. Condition is Stable. Forms are Medication Reconciliation Form, Thank You Letter, Antibiotic Education, Prescription Opioid Use. Follow up: Private Physician; When: 7 - 10 days; Reason: Recheck today's complaints, Continuance of care, Re-evaluation by your physician. Problem is new. Symptoms are unchanged. jr8
[2019-06-11 12:58] VITALS: BP 108/85; TEMP 98.1; O2SAT 98
== END 2019-06-11 12:43 | disposition home or self-care (01) ==
LOC: ER 12:04
DX: H66.002 Acute suppurative otitis media without spontaneous rupture of ear drum, left ear (principal); L04.0 Acute lymphadenitis of face, head and neck; F17.210 Nicotine dependence, cigarettes, uncomplicated
CPT/HCPCS: 99282

== ENCOUNTER 2020-04-03 08:13 | Emergency (ER) | payer SELFPAY ==
--- OUTSIDE RECORDS SUMMARY | 2020-04-03 08:15 | XMS REPORT | Summary of Care ---
:[address] [facility] - Health Address [address] [place] [address] Care Team Providers Name Role Phone Emy Mora Primary Care Provider Encounter Details Date Type Department Care Team Description 03/16/[address] [facility] Doctor Unassigned, No [address] [facility] [place] [address] [address] [place] [address] Allergies No Known Allergiesdocumented as of this encounter (statuses as of 03/16/2020) Medications Medication Sig Dispensed Refills Start Date End Date Status azithromycin 500 mg TAKE 2 TABLETS BY 0 08/31/2018 Active tablet MOUTH ONCE NOW FOR 1 DOSE documented as of this encounter (statuses as of 03/16/2020) Active Problems Problem Noted Date Breakthrough bleeding on Nexplanon 08/29/2018 Chlamydia trachomatis infection of lower genitourinary sites 08/29/[address] 07/19/2018 Well woman exam 07/03/2018 Contraceptive management 07/03/2018 Obesity (BMI 30-39.9) 07/03/2018 documented as of this encounter (statuses as of 03/16/2020) Immunizations Name Administration Dates Next Due HPV9 09/07/2018, 07/03/2018 documented as of this encounter Social History Tobacco Use Types Packs/Day Years Used Date Current Every Day Smoker Cigarettes 0.1 Sta rted: 07/03/2016 Smokeless Tobacco: Never Used Alcohol Use Drinks/Week oz/Week Comments No Sex Assigned at Date Recorded Not on file documented as of this encounter Last Filed Vital Signs Not on filedocumented in this encounter Plan of Treatment Date Type Specialty Care Team Description 03/16/2020 Office Visit OB Satellites Hellen Benitez, METER CALIBRATOR [address] [facility] [address] [place], [place] [address] [phone] Health Maintenance Due Date Last Done Comments MENINGOCOCCAL B VACCINES (1 of 2008 2 - Risk Bexsero 2-dose series) Depression Screening 2010 WELL CARE VISIT: 12-21 YEARS 2010 (yearly) DTaP,Tdap,and Td Vaccines (1 - 2017 Tdap) HPV VACCINES (3 - 3-dose 01/07/2019 09/07/2018, series) 07/03/2018 CHLAMYDIA SCREENING 11/01/2019 10/31/2018, 08/29/2018, 07/03/2018 INFLUENZA VACCINE (#1) 2019 PAP SMEAR 12/22/2019 MENINGOCOCCAL VACCINE Aged Out No longer eligible based on patient's age to complete this to pic PNEUMOCOCCAL 0-64 YEARS Aged Out No longe r eligible based COMBINED SERIES on patient's age to complete this to pic documented as of this encounter Goals Goal Patient Goal Associated Recent Patient-Stated? Author Type Problems Progress Quit using Tobacco Use No bety Bolivar RN (cigarettes, smokeless, etc) documented as of this encounter Procedures Procedure Name Priority Date/Time Associated Diagnosis Comme nts CONSENT/REFUSAL FOR Routine 03/16/2020 1:06 PM CLOUD [employer] MAT[employer] EXPERT DIAGNOSIS AND TREATMENT documented in this encounter Results Not on filedocumented in this encounter Insurance Payer Benefit Plan Subscriber ID Effective Phone Address Typ e / Group Dates [facility] [id number] 2018-Prese [phone] Medicaid WOMEN nt [address] [place] [address] documented as of this encounter Advance Directives Name Relationship Healthcare Agent Relationship Co mmunication Tonya Harmon Mother Health Care Agent Chris [facility] Health Care Agent
--- OUTSIDE RECORDS SUMMARY | 2020-04-03 08:15 | XMS REPORT | Continuity of Care Document ---
:2000 Author Organization [facility] t Address [address] [place] [address] Dr. Zhang. [address] [place] [address] Care Team Providers Name Role Phone Dana Moran Attending Clinician Problems This patient has no known problems. Allergies, Adverse Reactions, Alerts This patient has no known allergies or adverse reactions. Medications This patient has no known medications. Procedures This patient has no known procedures. Encounters Start End Encounter Admission Attending Care Care Encounter Source Date/Time Date/Time Type Type Clinicians Facility Department ID 2020-03-16 2020-03-16 Office OSEI Benitez [id number] 13:09:12 14:29:45 Visit Hellen Cortez RESEARCH AND DEVELOPMENT SCIENTIST [id number] [facility] [id number] MATERNAL [id number] & CHILD [address] [place] [address] Results This patient has no known results.
--- OUTSIDE RECORDS SUMMARY | 2020-04-03 08:16 | XMS REPORT | Summary of Care ---
:2000 Author Organization [facility] Address [address] [place], [place] [id number] Care Team Providers Name Role Phone Emy Mora Primary Care Provider Reason for Visit Reason Comments Well Woman Exam Encounter Details Date Type Department Care Team Description [facility] surveillance of implantable subdermal contraceptive (Primary Dx); JESSA Cavazos Nexplanon in place; [address] [facility] wodc n exam; [address] [place] Need for prophylactic vaccination and in oculation against influenza; [place], [place] [address] Menorrhagia with regular cycle; [id number] Screen for STD (sexually transmitted dis ease); [phone] Class 3 s evere obesity with body mass index (BMI) of 40.0 to 44.9 in adult, unspecified obesity type, unspecified whether serious comorbidity present; BMI 40.0-44.9, adult Allergies No Known Allergiesdocumented as of this encounter (statuses as of 03/16/2020) Medications Medication Sig Dispensed Refills Start Date End Date Status azithromycin 500 mg TAKE 2 TABLETS BY 0 08/31/2018 Active tablet MOUTH ONCE NOW FOR 1 DOSE documented as of this encounter (statuses as of 03/16/2020) Active Problems Problem Noted Date Need for prophylactic vaccination and inoculation agai nst influenza 03/16/2020 Menorrhagia with regular cycle 03/16/2020 Class 3 severe obesity with body mass index (BMI) of 4 0.0 to 44.9 in 03/16/2020 adult, unspecified obesity type, unspecified whether s erious comorbidity present BMI 40.0-44.9, adult 03/16/2020 Breakthrough bleeding on Nexplanon 08/29/2018 Chlamydia trachomatis infection of lower genitourinary sites 08/29/[address] 07/19/2018 Well woman exam 07/03/2018 Screen for STD (sexually transmitted disease) 07/04/19 19 Obesity (BMI 30-39.9) 07/03/2018 documented as of this encounter (statuses as of 03/16/2020) Immunizations Name Administration Dates Next Due HPV9 09/07/2018, 07/03/2018 Influenza Virus Vaccine Quad .5 mL IM 6+ MO 03/16/2020 documented as of this encounter Social History Tobacco Use Types Packs/Day Years Used Date Current Every Day Smoker Cigarettes 0.1 Sta rted: 07/03/2016 Smokeless Tobacco: Never Used Tobacco Cessation: Ready to Quit: No; Co unseling Given: Yes Alcohol Use Drinks/Week oz/Week Comments Yes socially Alcohol Habits Answer Date Recorded How often do you have a drink containing alcohol? 2-4 times a month 03/16/2020 How many drinks containing alcohol do you have on a Not aske d 03/16/2020 typical day when you are drinking? How often do you have six or more drinks on one Not asked 03/16/2020 occasion? 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 documented as of this encounter Last Filed Vital Signs Vital Sign Reading Time Taken Comments Blood Pressure 142/84 03/16/2020 1:29 PM SYSTEM ADMINISTRATION MANAGER Pulse 109 03/16/2020 1:29 PM SYSTEM ADMINISTRATION MANAGER Temperature 37.5 C (99.5 F) 03/16/2020 1:29 PM SYSTEM ADMINISTRATION MANAGER Respiratory Rate 16 03/16/2020 1:29 PM SYSTEM ADMINISTRATION MANAGER Oxygen Saturation - - Inhaled Oxygen Concentration - - Weight 125.6 kg (277 lb) 03/16/2020 1:29 PM SYSTEM ADMINISTRATION MANAGER Height 175.3 cm (5' 9") 03/16/2020 1:29 PM SYSTEM ADMINISTRATION MANAGER Body Mass Index 40.91 03/16/2020 1:29 PM SYSTEM ADMINISTRATION MANAGER documented in this encounter Patient Instructions Patient InstructionsNely Hunter RN - 03/16/2020 1:15 PM CST Patient Education 5 Steps for Eating Healthier Changing the way you eat can improve your health. It can lower your cholesterol and blood pressure, and help you stay at a healthy weight. Your diet doesnt have to be bland and boring to be healthy.Just watch your calories and follow these steps: Step 1. Eat fewer unhealthy fats Choose more fish and lean meats instead of fatty cuts of meat. Skip butter and lard, and use less margarine. Pass on foods that have palm, coconut, or hydrogenated oils. Eat fewer high-fat dairy foods like cheese, ice cream, and whole milk. Get a heart-healthy cookbook and try some low-fat recipes. Step 2.Go light on salt Keep the saltshaker off the table. Limit high-salt ingredients, such as soy sauce, bouillon, and garlic salt. Instead of adding salt when cooking, season your food with herbs and flavorings. Try lemon, garlic, and onion, or salt-free herb seasonings. Limit convenience foods, such as boxed or canned foods and restaurant food. Read food labels and choose lower-sodium options. Step 3. Limit sugar Pause before you add sugars to pancakes, cereal, coffee, or tea. This includes white and brown table sugar, syrup, honey, and molasses. Cut your usual amount by half. Use non-sugar sweeteners. Stevia, aspartame, and sucralose can satisfy a sweet tooth without adding calories. Swap out sugar-filled soda and other drinks. Buy sugar-free or low-calorie beverages. Remember water is always the best choice. Read labels and choose foods with less added sugar. Keep in mind that dairy foods and foods with fruit will have some natural sugar. Cut the sugar in recipes by 1/3 to 1/2. Boost the flavor with extracts like almond, vanilla, or orange. Or add spices such as cinnamon or nutmeg. Step 4. Eatmore fiber Eat fresh fruits and vegetables every day. Boost your diet with whole grains. Go for oats, whole-grain rice, and bran. Add beans and lentils to your meals. Drink more water to match your fiber increase to help prevent constipation. Step 5. Pay attention to serving sizes Remember that a serving size is a standard measurement. It will let you track the amount of fat, calories, and other nutrients in the food you eat. Read the Nutrition Facts label on packaged foods to learn their serving sizes. Use serving sizes to assess how much food you put on your plate. Pay attention to your portions. How many servings are you eating? Keep in mind that your needs may change if youre more active or less active, or if you have other factors that change your calorie needs. Use your hand to help you measure serving sizes. For example: ? 1 teaspoon: This is about the size of the first joint of your thumb. ? 1 tablespoon: This is about the size of the first 2 joints of your thumb. ? 1 ounce: This is about what you can fit in your cupped hand. ? 2 to 3 ounces: This is about size of the palm of your hand. ? cup: This is also about what you can fit in your cupped hand. ? 1 cup: This is about the size of your fist. [employer] last reviewed this educational content on 10/02/201919996147-9633 [employer]. All rights reserved. This information is not intended as a substitute for professional medical care. Always follow your healthcare professional's instructions. Patient Education Clinical Breast Exam Many health organizations recommend a yearly clinical breast exam. This exam may be done by a chemistry lecturer, family healthcare provider, nurse practitioner, nurse mechanical systems design engineer, or specially trained nurse. Yearly breast exams help tomake surethat breast conditions are found early. Your healthcare providers role A healthcare professional knows the tests and follow-up care needed if a problem is found. Your clinical exam is also a great time to ask questions about breast self-exams. You can find out if yourechecking your breasts in the best way. Or you may want to ask how , breast implants, or breast reduction surgery affect the way you should check your breasts. Diagnostic tests If a clinical exam reveals a breast change, you may have other tests to find out more. These tests may include: Mammography. A low-dose X-ray of your breast tissue. Ultrasound. An imaging test that uses sound waves to create images of your breast. Biopsy. A small amount of breast tissue is removed by needle or by a cut (incision). The tissue is then checked under a microscope. Guidelines for having clinical breast exams The [employer] recommends that starting at age 29, you should have a clinical breast exam every 1 to 3 years. After age 40, have a clinical breast exam each year. If youre at higher risk for breast cancer, you may need exams more often. Risk factors for breast cancer may include: Being over 50 or postmenopausal Having a family history of breast cancer Having the BRCA1 or BRCA2 gene mutation or certain other gene mutations Having more menstrual periods due to starting menstruation early(before age 12) or having a late menopause (after age 55) Having no pregnancies Having a first after age 30 Being obese Having a history of radiation treatment to your chest area Exposure to GLORIA during your mother's Not being active Drinking too much alcohol Having dense breast tissue Taking hormone therapy after menopause Other health organizations have different recommendations. Talk with your healthcare provider about what is best for you. [employer] lea reviewed this educational content on 07/03/201919990856-4751 [employer]. All rights reserved. This information is not intended as a substitute for professional medical care. Always follow your healthcare professional's instructions. Patient Education Breast Health: Breast Self-Awareness What is breast self-awareness? Breast self-awareness is knowing how your breasts normally look and feel. Your breasts change as yougo through different stages of your life. So its important to learn what is normal for your breasts. Knowing about your breasts helps you spot any changes in them right away. Tell your healthcare provider about any changes. Why is breast self-awareness important? Many experts now say that women should focus on breast self-awareness instead of doing a breast self-examination (BSE). These experts include the [employer] and the [employer]. Some experts even advise not teaching women to do a BSE. Thats because research hasnt shown a clear benefit to doing BSEs. Breast self-awareness is different than a BSE. It isnt about following a certain method and schedule. Its about knowing what's normal for your breasts. That way you can spot even small changes right away. If you see any changes, tell your healthcare provider. Changes to look for Call your healthcare provider if you find any changes in your breasts that worry you. These changes may be: A lump Nipple discharge other than breast milk, especially if it's bloody Swelling A change in size or shape Skin changes, such as redness, thickening, or dimpling of the skin Swollen lymph nodes in the armpit Nipple problems, such as pain or redness If you find a lump Call your provider if you find lumpiness in one breast. Also call if you feel something different inthe tissue or feel a definite lump. Sometimes lumpiness may be due to menstrual changes. But there may be reason for concern. Your provider may want to see you right away if you have: Nipple discharge that is bloody Skin changes on your breast, such as dimpling or puckering Its okay to be upset if you find a lump. Be sure to call your provider right away. Remember that most breast lumps are benign. This means they are not cancer. [employer] last reviewed this educational content on 08/02/201919991389-4187 [employer]. All rights reserved. This information is not intended as a substitute for professional medical care. Always follow your healthcare professional's instructions. Patient Education Prevention Guidelines,Women Ages 18 to 39 Screening tests and vaccines are an important part of managing your health. A screening test is doneto find possible disorders or diseases in people who don't have any symptoms. The goal is to find a disease early so lifestyle changes can be made and you can be watched more closely to reduce the riskof disease, or to detect it early enough to treat it most effectively. Screening tests are not considered diagnostic, but are used to determine if more testing is needed. Health counseling is essential, too. Below are guidelines for these, for women ages 18 to 39. Talk with your healthcare provider tomake sure youre up-to-date on what you need. Screening Who needs it How often Alcohol misuse All women in this age group At routine exams Blood pressure All women in this age group Yearly checkup if your blood pressure is normal Normal blood pressure is less than 120/80 mm Hg If your blood pressure reading is higher than normal, follow the advice of your healthcare provider Breast cancer All women in this age group should talk with their healthcare providers about the needfor clinical breast exams (CBE)1 Clinical breast exam every 3 years1 Cervical cancer Women ages 21 and older Women between ages 21 and 29 should have a Pap test every 3years; women between ages 30 and 65 are advised to have a Pap test plus an HPV test every 5 years Chlamydia Sexually active women ages 24 and younger, and women at increased risk for infection Every 3 years if you're at risk or have symptoms Depression All women in this age group At routine exams Diabetes mellitus, type 2 Adults with no symptoms who are overweight or obese and have 1 or more other risk factors for diabetes At least every 3 years. Also, testing for diabetes during after the 24th week. Gonorrhea Sexually active women at increased risk for infection At routine exams Hepatitis C Anyone at increased risk At routine exams HIV All women At routine exams3 Obesity All women in this age group At routine exams Syphilis Women at increased risk for infection should talk with their healthcare provider At routine exams Tuberculosis Women at increased risk for infection should talk with their healthcare provider Ask your healthcare provider Vision All women in this age group At least 1 complete exam in your 20s, and 2 in your 30s Vaccine Who needs it How often Chickenpox (varicella) All women in this age group who have no record of this infection or vaccine2 doses; the second dose should be given 4 to 8 weeks after the first dose Hepatitis A Women at increased risk for infection should talk with their healthcare provider 2 doses given at least 6 months apart Hepatitis B Women at increased risk for infection should talk with their healthcare provider 3 doses over 6 months; second dose should be given 1 month after the first dose; the third dose should be given at least 2 months after the second dose and at least 4 months after the first dose Haemophilus influenzae Type B (HIB) Women at increased risk for infection should talk with their healthcare provider 1 to 3 doses Human papillomavirus (HPV) All women in this age group up to age 26 3 doses; the second dose should be given 1 to 2 months after the first dose and the third dose given 6 months after the first dose Influenza (flu) All women in this age group Once a year Measles, mumps, rubella (MMR) All women in this age group who have no record of these infections orvaccines 1 or 2 doses Meningococcal Women at increased risk for infection should talk with their healthcare provider 1 ormore doses Pneumococcal conjugate vaccine (PCV13)and pneumococcal polysaccharidevaccine(PPSV23) Women atincreased risk for infection should talk with their healthcare provider PCV13: 1 dose ages 19 to 65(protects against 13 types of pneumococcal bacteria) PPSV23: 1 to2 doses through age 64, or 1 dose at 65 or older (protects against 23 types of pneumococcal bacteria) Tetanus/diphtheria/pertussis (Td/Tdap) booster All women in this age group Td every 10 years, or a one-time dose of Tdap instead of a Td booster after age 18, then Td every 10 years Counseling Who needs it How often BRCA gene mutation testing for breast and ovarian cancer susceptibility Women with increased risk for having gene mutation When your risk is known Breast cancer and chemoprevention Women at high risk for breast cancer When your risk is known Diet and exercise Women who are overweight or obese When diagnosed, and then at routine exams Domestic violence Women at the age in which they are able to have children At routine exams Sexually transmitted infection prevention Women who are sexually active At routine exams Skin cancer Prevention of skin cancer in fair-skinned adults At routine exams Use of tobacco and the health effects it can cause All women in this age group Every visit 1 According to the ACS, women ages 20 to 39 years should have a clinical breast exam (CBE) as part of their routine health exam every 3 years. Breast self-exams are an option for women starting in their 20s.But the U.S. Preventive Services Task Force (USPSTF) does not recommend CBE. 2 Those who are 18 years old and not up-to-date on their childhood vaccines should get all appropriate catch-up vaccines recommended by the CDC. 3 The USPSTF recommends that all people ages 15 to 65 years be screened for HIV and those younger orolder people at increased risk. The CDC recommends that everyone between the ages of 13 and 64 get tested for HIV at least once as part of routine health care. [employer] last reviewed this educational content on 01/01/201719998737-8754 [employer]. All rights reserved. This information is not intended as a substitute for professional medical care. Always follow your healthcare professional's instructions. Patient Education What Are Sexually Transmitted Infections (STIs)? A sexually transmitted infection (STI) is an infection that is spread during sex. An STI can also becalled STD for sexually transmitted disease. You can become infected with an STI if you have sex with someone who has an STI. Any sex that involves the penis, vagina, anus, or mouth can spread these infections. Some STIs also spread through body fluids such as semen, vaginal fluid, or blood. Others spread through contact with infected skin. The most common STIs are chlamydia, genital warts , genital herpes, syphilis, HIV, gonorrhea, and trichomoniasis. Who is at risk? It doesnt matter if youre straight or dudley, male or female, young or old. Any person who has sex can get an STI. Your risk increases if: You have more than one partner. The more partners you have, the greater your risk. Your partner has other partners. If your partner is exposed to an STI, you could be, too. You or your partner have had sex with other people in the past. Either of you might be carrying an STI from an earlier partner. You have an STI. The STI may cause sores or other health problems that increase your risk for newinfections. Your risk will stay high unless you are treated for your current STI and change the behaviors that put you at risk. Prevent future problems Left untreated, certain STIs can lead to cancer or, rarely, . Some can harm unborn babies whosemothers are infected. Others can cause you to not be able to have children (sterility) or can affectchanges in behavior or your ability to think. You can prevent these problems with safer sex, regularcheckups, and early treatment. Always use a latex condom when you have sex. Get tested if youre at risk. And get treated early if you have an STI. Using a latex condom every time you have sex can reduce your risk of STIs. Getting checked The only sure way to know if you have an STI is to get checked by a healthcare provider. If you notice a change in how your body looks or feels, have it checked out. But keep in mind, STIs dont always show symptoms. So if youre at risk for STIs, get checked regularly. If you find you have an STI, have your partner get treatment. If not, his or her health is at risk. And left untreated, your partner could pass the STI back to you, or on to others. Common symptoms Be alert to any changes in your body and your partners body. Symptoms may appear in or near the vagina, penis, rectum, mouth, or throat. They may include: Unusual discharge Lumps, bumps, or rashes Sores that may be painful, itchy, or painless Itchy skin Burning with urination Pain in the pelvis, belly (abdomen), or rectum Bleeding from the rectum Even if you dont have symptoms You may have an STI even if you dont have symptoms. If you think you are at risk, get checked. Goto a clinic or to your healthcare provider. If your partner has an STI, you need to be tested even if you feel fine. Vaccines to prevent disease Vaccines are available to prevent hepatitis A and hepatitis B. These are 2 kinds of STIs. There is also a vaccine to prevent human papillomavirus (HPV). This is a virus that can be passed from person to person through sexual contact. Ask your healthcare provider whether any of these vaccines is right for you. [employer] lea reviewed this educational content on 03/03/201819995504-5679 [employer]. All rights reserved. This information is not intended as a substitute for professional medical care. Always follow your healthcare professional's instructions. Patient Education Understanding HPV (Human Papillomavirus) HPV (human papillomavirus) is a virus that causes warts. It can be hard to detect, so many people never even know they have it. Some types (strains) of HPV may cause warts on the hands, legs, or other parts of the body. These can spread from person to person. Other strains of HPV cause wartsin the genital area. A few of these strains can cause certain cancers: Cancers of the cervix, vagina, and vulva in women Cancers of the penis in men Cancers of the anus and back of the throat, including the base of the tongue and tonsils in both women and men . Treating genital forms of HPV now can help prevent serious health problems in the future. How was I infected? HPV is passed from person to person through contact with infected skin. Everyone with HPV has a different experience. Some people notice genital warts (condyloma) within a few months of exposure. In other people, warts take years to appear or may never appear. This makes it almost impossible to know when or by whom you were infected. How warts form HPV lives inside skin and mucous membrane (including in the mouth and vagina). The virus can make skin cells reproduce more often than they should. These extra skin cells build up into warts. 1. HPV invades the skin. 2. DNA from the virus enters skin cells. 3. HPV causes infected skin cells to multiply and form warts. 4. The virus sheds, allowing it to be passed to others. [employer] last reviewed this educational content on 09/01/201819990190-1554 The [employer]. [address] [place] [address], [place] [address]. All rights reserved. This information is not intended as a substitute for professional medical care. Always follow your healthcare professional's instructions. Patient Education Understanding HIV and AIDS It's important to know how HIV can get into your body and what happens once its there. Then youll be better prepared to protect yourself or others against this virus. A person with HIV can look and feel perfectly healthy. But that person can give HIV to others as soon as he or she is infected with the virus. Having unsafe or unprotected sex or sharing needles puts you at risk for HIV. Talk with your healthcare provider about ways to protect yourself or a loved one from getting HIV. How HIV infection progresses After HIV enters the body, it attacks the immune system in the stages below. A person with HIV can infect others once the virus gets into the blood. HIV with no symptoms. A person with HIV may have no symptoms for years. The only sign of infection may be a positive blood test for HIV 2 weeks to 3 months or later after HIV enters the body. HIV with symptoms. Some people develop an illness similar to mono (mononucleosis) 2 to 4 weeks after the virus enters the body. This is called acute retroviral syndrome. Symptoms may include swollen lymph glands, chills, fever, night sweats, weakness, weight loss, skin rashes, mouth ulcers, or sore t hroat. Symptoms may be mild or the person can feel quite sick. Even without treatment the symptoms almost always go away in a few days or up to 2 to 3 weeks. Then the person has no symptoms, often for years. But over time the immune system starts to get weaker and symptoms start appearing. People at this stage may have a yeast infection in the mouth (oral thrush), shingles, skin problems, pneumonia, diarrhea that keeps coming back, or weight loss. AIDS. AIDS is the most advanced stage of HIV infection, when the immune system is severely weakened.Certain rare diseases and cancers that normally would not occur, now can occur because the body can no longer fight them well enough. It is often these diseases that cause in people with AIDS. HIV may also directly attack the brain and nervous system. This causes seizures and loss of memory and body movement. It also affects many other parts of the body. This leads to problems such as anemia, low white blood cell count, diarrhea, belly pain, skin problems, and many others. How HIV enters the body HIV is carried in semen, vaginal fluid, blood, and breastmilk. During sex, HIV can enter the body. It gets in through the fragile tissue and linings, sores, or cuts in or around the vagina, penis, anus, and mouth. During drug use, tattooing, or body piercing, the virus can enter the blood through an infected needle. A mother who has HIV can infect her child during , childbirth, and . [employer] last reviewed this educational content on 09/01/201819998572-1336 [employer]. [address] [place] [address]. All rights reserved. This information is not intended as a substitute for professional medical care. Always follow your healthcare professional's instructions. Patient Education Control Methods control methods are used to help prevent .There are many different methods to choose from. Talk with your healthcare provider about which method is right for you.Be sure to ask your provider how well each one works. Also ask about the benefits, risks, and side effects of each method. Hormones Some control methods work by releasing hormones such as progestin and estrogen. These methods include hormone implants, hormone shots, the vaginal ring, the patch,and control pills. They all work by stopping the release of the egg from the ovary (ovulation). All of these methods work well and can be stopped at any time. The implant is a small device that needs to be placed in the upper arm by a trained healthcare provider. It works for up to3 years. Hormone injections must be repeated every 3 months. The vaginal ring must be replaced monthly. It can be removed during the fourth week of each cycle. The patch must be replaced weekly. It's not worn during the fourth week of each cycle. control pills must be taken every day. Intrauterine device (IUD) An IUD is a small, T-shaped device. It must be placed in the uterus by a trained healthcare provider.There are different types of IUDs available. They work by causing changes in the uterus that make it harder for sperm to reach the egg. Depending on the type of IUD you have, it may work for several years or longer. The IUD is a reversible control method. This means it can be removed at any time. Condom A condom is a sheath that forms a thin barrier between the penis and the vagina.It helps prevent by keeping sperm from entering the vagina. When latex condoms are used, they have the added benefit of protecting against most STIs (sexually transmitted infections).Condoms are used each time there is sexual intercourse and should be discarded after each use. Ask your healthcare provider about the different types of condoms available. These include both the male condom and female condom. Spermicide Spermicides come as foams, jellies, creams, suppositories, andtablets.They help prevent by killing sperm. When used alone they are not that reliable. They work best when combined with other control methods such as diaphragms and cervical caps. Sponge, diaphragm, and cervical cap All of these methods help prevent by covering the opening of the uterus (cervix). This prevents sperm from passing through. The sponge contains spermicide. It can be bought over the counter. The sponge must be left in place for at least 6 hours after the last time you have sex.However, it should not stay in place for morethan 24 hours. Discard after use. Thediaphragmand cervical cap must be fitted and prescribed by your healthcare provider. Both areused with spermicide.The diaphragm must be left in place for at least 6 hours after sex. However, it should not stay in place for more than 24 hours.It can be washed and reused. The cervical cap must be left in place for at least 6 hours after sex. However, it should not stay in place for more than 48 hours. It can be washed and reused. Withdrawal method This is when the man pulls his penis out of the vagina just before ejaculation (coming). This lowers the amount of sperm entering the vagina. Be aware that fluids released just before ejaculationoften still contain some sperm, so this method is not as reliable as certain other methods. Rhythm method This method is also call natural family planning or fertility awareness. It requires that you know when in your menstrual cycle you are likely to become . Then you not have sex during those days. This requires careful planning and good discipline. Your healthcare provider can explain more about how this works. Tubal ligation and vasectomy These are surgical methods to prevent . Tubal ligation is an option for women. The fallopian tubes are blocked or cut (ligated). This keeps the egg from passing into the uterus or sperm from reaching the egg. Vasectomy is an option for men. The tubes that normally carry sperm to the penis areeither closed or blocked. Both tubal ligation and vasectomy are permanent control methods. This means reversal is either not possible or unlikely to work.They are good choices for women and menwho know that they don't want to have children in the future. [employer] last reviewed this educational content on 10/02/201919994949-7219 [employer]. All rights reserved. This information is not intended as a substitute for professional medical care. Always follow your healthcare professional's instructions. Patient Education Pap Test A speculum is used to open the vagina so cells can be taken from the cervix. Schedule your test for a time when you will not be having your menstrual period. If youre menstruating at the time of your appointment, call your healthcare provider to ask if you should reschedule. For 48 hours before the test Don't douche. Don' use vaginal medicines, creams, or spermicides. For 24 hours before the test Don't have sex. How the test is done 1. You lie on an exam table with your feet in stirrups (foot rests). This is the usual position for a pelvic exam (an exam of the reproductive organs). 2. Your healthcare provider uses a speculum (a metal or plastic instrument) to gently open the vagina. 3. Cells are taken from the cervix with a small spatula or rubber broom. A small brush may then be used to remove cells from inside the cervical canal. You may feel pressure or slight discomfort. Preserving the sample There are 2 ways to preserve the sample after it is taken: Traditional preservation.With this method, the sample is smeared directly onto a glass microscope slide. The sample is then sent to a lab to be analyzed. Liquid-based preservation.The sample is placed in a special preservative solution. At the lab, cervical cells are from blood and mucous cells and spread onto a slide. Screening for humanpapillomavirus (HPV)can also be done using the same sample. After the test Youre free to go! There is a slight chance of light bleeding or spotting. Your healthcare provider will tell you when to expect your test results. Getting your results Ask your healthcare provider how you will receive your results. You should always obtain and understand results of any testing you have done. These may be obtained by phone, mail, or through online access if available: Normal result.The cells in the sample appear healthy. Have your next Pap test as recommended byyour healthcare provider. Abnormal result.The lab saw something unusual in your sample. Talk with your healthcare provider about what the results mean. You may need to repeat the Pap test or have other tests to evaluate the problem. [employer] last reviewed this educational content on 04/03/201919993257-3817 [employer]. [address] [place] [id number]. All rights reserved. This information is not intended as a substitute for professional medical care. Always follow your healthcare professional's instructions. Patient Education Why Have a Pap Test? Early on, cervical changes don't cause symptoms. Often the only way to know you have cervical changes is to do a Pap test. A Pap test can find these problems early, when they are easier to treat. Pap tests can also find some infections of the cervix and vagina. What is a Pap test? A Pap test is a procedure that helps find changes in the cervix that may lead to cancer. The cervix is the part of the uterus that opens into the vagina. For this test, a small sample of cells is takenfrom the cervix. This is done in your healthcare providers office. The cells are then analyzed [facility]. A Pap test is a safe procedure. It takes just a few minutes and causes little or no discomfort. The HPV connection Human papillomavirus (HPV) is a family of viruses that spread through skin contact. Certain types are almost always spread through sexual contact. Some HPV types cause genital warts (condyloma). But not all types of HPV cause symptoms you can see. Certain types cause cell changes (dysplasia) in the cervix that can lead to cancer.In fact, HPV infection is the most important risk factor for cervical cancer. Healthcare providers can now test for HPV. Testing for HPV is often done with the Pap test.Thats why its important to have Pap tests as advised by your healthcare provider. This helps ensure that any abnormal cells will be found and treated before they become cancer. Who should have a Pap test and HPV test? Ask your healthcare provider when to start having Pap tests, if you should have an HPV test done at the same time, and how often to have them. Follow these guidelines from the [employer] for cervical cancer screening: A first Pap testat age 21, and then every 3 years until age 29. HPV testing is not advised during this time. But it may be done to follow up on an abnormal Pap test. Starting at age 30, the preferred testing is a Pap test done with an HPV test every 5 years. Thisshould be done until age 65. Another option for women in this 30 to 65 age group is to have just thePap test done every 3 years. You may need a different screening schedule if you are at high risk for cervical cancer.Risk factors include having HIV, a weak immune system, or exposure to the medicine GLORIA while your mother was with you. Talk with your provider about the best schedule for you. If youre over65 and have had regular screenings for the last 10 years with no abnormal results in the last 20 years,you may stop cervical cancer screening. If you had a hysterectomy that included removing your cervix, you can stop screening unless the hysterectomy was done to treat cervical cancer or precancer. If you still have your cervix after the hysterectomy, you should keep screening according to the above guidelines. Routine testing doesn't need to be done each year. But if your test is abnormal, your provider will let you know how often to be tested. Women who have been vaccinated for HPV should still follow these guidelines. If you have had cervical cancer, talk with your provider about the screening plan that's best foryou. [employer] last reviewed this educational content on 09/02/201919999980-0675 [employer]. All rights reserved. This information is not intended as a substitute for professional medical care. Always follow your healthcare professional's instructions. Patient Education The Range of Pap Test Results When your Pap test is sent to the lab, the lab studies your cell samples and reports any abnormal cell changes. Your healthcare provider can discuss these changes with you. In some cases, an abnormal Pap test is due to an infection. More serious cell changes range from dysplasia to cancer. Talk to your healthcare provider about your Pap test. Normal results Cervical cells, even normal ones, are always changing. As they mature, normal squamous cells move from deeper layers within the cervix. Over time, these cells flatten and cover the surface of the cervix. Within the cervical canal, the cells are different. These glandular cells are taller and not as flat as the cells on the surface of the cervix. When a Pap test sample shows healthy cells of both types, the results are negative. Keep having Pap tests as often as directed. Abnormal results A positive Pap test result means some cells in the sample showed abnormal changes. These results aregrouped by the type of cell change and the location, or extent, of the changes. Depending on the results, you may need further testing. Inflammation. Noncancerous changes are present. They may be due to normal cell repair. Or they may be caused by an infection, such as HPV or yeast. Further testing may be needed. (Also called reactive cellular changes.) Atypical squamous cells. Test results are unclear. Cells on the surface of the cervix show changes, but their significance is not yet known. Testing for HPV and other sexually transmitted infections(STIs) may be needed. Treatment may be required. (Reported as ASC-US or ASC-H.) Atypical glandular cells. Cells lining the cervical canal show abnormal changes. Further testing is likely. You may also have treatment to destroy or remove problem cells. (Reported as AGC.) Mild dysplasia. Cells show distinct changes. More testing or HPV typing may be done. You may alsohave treatment to destroy or remove problem cells. (Reported as low-grade MIGUEL or RUPALI 1.) Moderate to severe dysplasia. Cells show precancerous changes. Or noninvasive cancer (carcinoma in situ) may be present. Treatment to destroy or remove problem cells is likely. (Reported as high-grade MIGUEL or RUPALI 2 or RUPALI 3.) Cancer. Different types of cancer may be detected by your Pap test. More tests to assess the cancer's extent are likely. The type of treatment will depend on the test results and other factors, suchas age and health history. (Reported as squamous cell carcinoma, endocervical adenocarcinoma in situ, or adenocarcinoma.) [employer] last reviewed this educational content on 09/02/201919999754-2279 [employer]. All rights reserved. This information is not intended as a substitute for professional medical care. Always follow your healthcare professional's instructions. 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 Patient denies any abdominal/pelvic pain. Patient denies any other concerns. Patient reports LMP was 03/15/2020. Patient reports last sexual intercourse was on 2wks ago and has Nexplanon in place for BCM. Patient desires need for STD/STI testing. Patient denies current or past physical, sexual or emotional abuse. Histories OB History Para Term AB Living 1 1 1 1 SAB TAB Ectopic Multiple Live Births 1 # Outcome Date GA Lbr Jakub/2nd Weight Sex Delivery Anes PTL Lv 1 Term 05/03/17 37w0d 7 lb 5 oz (3.317 kg) M NORMAL SPONT HANSEL Past Medical History: Diagnosis Date Anemia Ongoing, not on meds Breakthrough bleeding on Nexplanon 08/29/2018 ongoing Hypertension 2017 During Family History Problem Relation Age of Onset Heart Mother Uterine Cancer Mother Cancer Mother Ovarian Cancer Mother High cholesterol Brother Arthritis Maternal Grandmother Heart Maternal Grandmother Diabetes Maternal Grandmother Hypertension Maternal Grandmother No Significant Medical Problems Sister Family Status Relation Name Status Mo Alive Bro Alive MGMo Alive Fa Alive unknown history Sis Alive History reviewed. No pertinent surgical history. Social History Socioeconomic History Marital status: Single Spouse name: Not on file Number of children: Not on file Years of education: Not on file Highest education level: Not on file Occupational History Not on file Social Needs Financial resource strain: Not on file Food insecurity Worry: Not on file Inability: Not on file Transportation needs Medical: Not on file Non-medical: Not on file Tobacco Use Smoking status: Current Every Day Smoker Packs/day: 0.10 Types: Cigarettes Start date: 07/03/2016 Smokeless tobacco: Never Used Substance and Sexual Activity Alcohol use: Yes Frequency: 2-4 times a month Comment: socially Drug use: No Sexual activity: Yes Partners: Male control/protection: Implant Comment: Last /30/2020 Lifestyle Physical activity Days per week: Not on file Minutes per session: Not on file Stress: Not on file Relationships Social connections Talks on phone: Not on file Gets together: Not on file Attends gnosticist service: Not on file Active member of club or organization: Not on file Attends meetings of clubs or organizations: Not on file Relationship status: Not on file Intimate partner violence Fear of current or ex partner: Not on file Emotionally abused: Not on file Physically abused: Not on file Forced sexual activity: Not on file Other Topics Concern Not on file Social History Narrative Patient lives with mom, grandmother. Patient feels safe at home. Patient has two cats. Social History Substance and Sexual Activity Sexual Activity Yes Partners: Male control/protection: Implant Comment: Last [id number]/30/2020 Labs Labs are pending. Radiology No new radiology. Allergies Marla has No Known Allergies. Medications Marla has a current medication list which includes the following prescription(s): azithromycin. Review of Systems Constitutional: Negative for activity change, appetite change, fatigue, unexpected weight change, weight gain and weight loss. HENT: Negative for sore throat. Eyes: Negative for visual disturbance. Respiratory: Negative for cough and shortness of breath. Breasts: Negative for discharge, mass, pain and unequal size. Cardiovascular: Negative for chest pain, palpitations and leg swelling. Gastrointestinal: Negative. Negative for abdominal pain, anal bleeding, blood in stool, constipation, diarrhea, nausea, rectal pain and vomiting. Genitourinary: Positive for menstrual problem. Negative for bladder incontinence, dysuria, urgency, flank pain, vaginal bleeding, vaginal discharge, genital sores, vaginal pain and pelvic pain. Skin: Negative for color change and rash. Neurological: Negative. Negative for dizziness, syncope and headaches. Psychiatric/Behavioral: Negative for confusion, self-injury and sleep disturbance. The patient is not nervous/anxious. Hematological: Negative for cold intolerance and heat intolerance. Endocrine: Negative for hair loss, cold intolerance, heat intolerance, weight gain and weight loss. BP (!) 142/84 (BP Location: Right arm, Patient Position: Sitting, BP CUFF SIZE: Adult Large) | Pulse 109 | Temp 37.5 C (99.5 F) (Oral) | Resp 16 | Ht 5' 9" (1.753 m) | Wt 277 lb (125.6 kg) | BMI 40.91 kg/m Pregravid BMI: Could not be calculated Physical Exam Vitals reviewed. Constitutional: She is oriented to person, place, and time. She appears well- developed, well-nourished and well-groomed. She has no deformities. Neck: No tenderness and no mass. No thyroid nodules and no thyromegaly palpated. Cardiovascular: Regular rate and rhythm. No murmur auscultated. Pulmonary/Chest: Breath sounds clear to auscultation. Normal inspiratory effort. Abdominal: Abdomen is soft. No mass palpated. No tenderness present. There is no guarding. Neuro/Psychiatric: She has a normal mood and affect. She is oriented to person, place, and time. Skin: Skin normal. No lesion and no rash present. Red markings indicate tattoos are present Breast: Right breast exhibits no mass, no nipple discharge and no tenderness. Left breast exhibits no mass, no nipple discharge and no tenderness. Normal left breast and normal right breast Rectal: normal rectum External genitalia: Normal external genitalia appropriate for age. Normal hair distribution. No labial lesion. Vagina:Normal vagina. No lesion inspected. No abnormal vaginal discharge found. No lesions in thevagina. Cervix: Normal cervix. No lesion. No tenderness and no discharge present. Uterus: Uterus is normal size and non-tender. Normal uterus Adnexa: Right adnexa without tenderness or mass. Left adnexa without tenderness or mass. Normal leftadnexa and normal right adnexa Anus/perineum: Normal perineum. Assessment/Plan Encounter for surveillance of implantable subdermal contraceptive (primary encounter diagnosis) Nexplanon in place Comment: Nexplanon in place Plan: Patient desires to continue with Nexplanonfor contraception. Provider has reviewed risks, benefits and alternatives contraception methods. Provider has also reviewed use, side effects and effectiveness of desired BCM vs other BCM. Encouraged abstinence until menses. Encouraged use of condoms as back up x 1 month and for safer sex. Well woman exam Comment: Routine WWE Plan: PAP Smear-Liquid Based, PAP Smear-Liquid Based Denies zika virus risk, signs and symptoms such as fever,rash,joint pain, conjunctivitis (red eyes), muscle pain, headaches; outside [place] travel to areas affected by zika, and FOB exposure to zika.Educated on use of mosquito repellent. Covid x12 screening done, screening results are negative. Need for prophylactic vaccination and inoculation against influenza Comment: patient desires Plan: FLU VACC([id number]), 6+ MONTHS, IM, QUAD (FLUZONE/FLULAVAL/FLUARIX) Menorrhagia with regular cycle Comment: heavy bleeding with regular menses Plan: will await labs and may start trial of OCPs for minimize bleeding Screen for STD (sexually transmitted disease) Comment: Patient desires Plan: GC & CHLAMYDIA AMPLIFIED ASSAY, TRICHOMONAS AMPLIFIED ASSAY, GALV ONLY - SYPHILIS IGG/IGM, HIV 1/2 AG-AB WITH REFLEX, GC & CHLAMYDIA AMPLIFIED ASSAY, TRICHOMONAS AMPLIFIED ASSAY, GALV ONLY - SYPHILIS IGG/IGM, HIV 1/2 AG-AB WITH REFLEX Class 3 severe obesity with body mass index (BMI) of 40.0 to 44.9 in adult, unspecified obesity type, unspecified whether serious comorbidity present BMI 40.0-44.9, adult Comment: BMI: 40.91 Plan: Patient encouraged to limit weight gain and advised to eat healthy diet, fruits, vegetables, increased fiber and water intake and protein low in fat. Encouraged exercise for 30 min everyday; begin regimen with caution to prevent injury. Encouraged to decrease BMI to <25. Patient educated onthe effects of chronic health problems of obesity on future pregnancies and/or senior living health. Return to clinic in 1 year for PRN Discussed treatment options. Medications as ordered. Reviewed patient instructions and provided printed copy. This visit did not involve counseling and coordination that comprised more than 50% of the visit time. JESSA Rodriguez 03/16/2020 2:55 PM EM ADMINISTRATION MANAGER Nely Hunter RN - 03/16/2020 1:15 PM CST19 year old presented to the clinic for WWE. 1) Previous BCM: nexplanon 2) Desired BCM: nexplanon 3) LMP: 03/15/2020 4) Last [place]: 03/02/2020 5) Last Pap: N/a Results: N/a HPV Results n/a 6) Tdap in last 10 years? yes 7) HPV Vaccines: incomplete, needs one more vaccine 8) C/O: abnormal bleeding. Heavy bleeding lasts more than 14 days and only has a small break withoutbleeding then continues menses. 9) Patient denies history of physical, emotional, or sexual abuse. Patient states she currently feels safe at home. documented in this encounter Plan of Treatment Name Type Priority Associated Diagnoses Date/Ti me PAP Smear-Liquid Based LAB Routine Well woman exam 2:30 PM SYSTEM ADMINISTRATION MANAGER GC & CHLAMYDIA AMPLIFIED LAB Routine Screen for STD ( sexually 03/16/2020 2:30 PM ASSAY transmitted disease) SYSTEM ADMINISTRATION MANAGER TRICHOMONAS AMPLIFIED LAB Routine Screen for STD (sex ually 03/16/2020 2:30 PM ASSAY transmitted disease) SYSTEM ADMINISTRATION MANAGER GALV ONLY - SYPHILIS LAB Routine Screen for STD (sexu ally 03/16/2020 2:29 PM IGG/IGM transmitted disease) SYSTEM ADMINISTRATION MANAGER HIV 1/2 AG-AB WITH REFLEX LAB Routine Screen for STD (sexually 03/16/2020 2:29 PM transmitted disease) SYSTEM ADMINISTRATION MANAGER Name Type Priority Associated Diagnoses Order S chedule PAP Smear-Liquid Based LAB Routine Well woman exam Ex pected: 03/16/2020, Expires: 2020 GC & CHLAMYDIA AMPLIFIED LAB Routine Screen for STD ( sexually Expected: 03/16/2020, ASSAY transmitted disease) Expires : 03/16/2021 TRICHOMONAS AMPLIFIED LAB Routine Screen for STD (sex ually Expected: 03/16/2020, ASSAY transmitted disease) Expires : 03/16/2021 GALV ONLY - SYPHILIS LAB Routine Screen for STD (sexu ally Expected: 03/16/2020, IGG/IGM transmitted disease) Expires : 03/16/2021 HIV 1/2 AG-AB WITH REFLEX LAB Routine Screen for STD (sexually Expected: 03/16/2020, transmitted disease) Expires : 03/16/2021 Health Maintenance Due Date Last Done Comments MENINGOCOCCAL B VACCINES (1 of 2008 2 - Risk Bexsero 2-dose series) WELL CARE VISIT: 12-21 YEARS 2010 (yearly) DTaP,Tdap,and Td Vaccines (1 - 2017 Tdap) HPV VACCINES (3 - 3-dose 01/07/2019 09/07/2018, series) 07/03/2018 CHLAMYDIA SCREENING 11/01/2019 10/31/2018, 08/29/2018, 07/03/2018 INFLUENZA VACCINE (#1) 2019 PAP SMEAR 12/22/2019 Depression Screening 03/16/2021 03/16/2020 MENINGOCOCCAL VACCINE Aged Out No longer eligible [...] Name Priority Date/Time Associated Diagnosis Comme nts FLU VACC ([id number]), Routine 03/16/2020 1:44 PM Need for pro phylactic 6+ MONTHS, IM, QUAD SYSTEM ADMINISTRATION MANAGER vaccination and inoculation against influenza documented in this encounter Results Not on filedocumented in this encounter Visit Diagnoses Diagnosis Encounter for surveillance of implantabl e subdermal contraceptive - Primary Nexplanon in place Presence of subdermal contraceptive zaid ce Well woman exam Routine general medical examination at a health care facility Need for prophylactic vaccination and in oculation against influenza Menorrhagia with regular cycle Excessive or frequent menstruation Screen for STD (sexually transmitted dis ease) Screening examination for venereal disea se Class 3 severe obesity with body mass in dex (BMI) of 40.0 to 44.9 in adult, unspecified obesity type, unspecified wh ether serious comorbidity present BMI 40.0-44.9, adult Body Mass Index 40.0-44.9, adult documented in this encounter Insurance Payer Benefit Plan Subscriber ID Effective Phone Address Typ e / Group Dates [facility] [id number] 2018-Lasha [phone] Medicaid WOMEN nt [address] [place] [address] documented as of this encounter Advance Directives Name Relationship Healthcare Agent Relationship Co mmunication Tonya Harmon Mother Health Care Agent Chris Edwards Parent [facility] Health Care Agent
--- OUTSIDE RECORDS SUMMARY | 2020-04-03 08:16 | XMS REPORT | Summary of Care ---
:2000 Author Organization [facility] Address [address] [place], [place] [id number] Care Team Providers Name Role Phone Emy Mora Primary Care Provider Reason for Visit Reason Comments Well Woman Exam Encounter Details Date Type Department Care Team Description [facility] for surveillance of implantable subdermal contraceptive (Primary Dx); JESSA Cavazos Nexplanon in place; [address] [place] [address] [facility] wonv n exam; [address] [place] Need for prophylactic vaccination and in oculation against influenza; [place], [place] [address] Menorrhagia with regular cycle; [address] Screen for STD (sexually transmitted dis ease); [phone] Class 3 s evere obesity with body [...] with No / Unsure 03/16/2020 1:28 PM MOLDED PARTS INSPECTOR someone who was confirmed or suspected to have Coronavirus / COVID-19? documented as of this encounter Last Filed Vital Signs Vital Sign Reading Time Taken Comments Blood Pressure 142/84 03/16/2020 1:29 PM MOLDED PARTS INSPECTOR Pulse 109 03/16/2020 1:29 PM MOLDED PARTS INSPECTOR Temperature 37.5 C (99.5 F) 03/16/2020 1:29 PM MOLDED PARTS INSPECTOR Respiratory Rate 16 03/16/2020 1:29 PM MOLDED PARTS INSPECTOR Oxygen Saturation - - Inhaled Oxygen Concentration - - Weight 125.6 kg (277 lb) 03/16/2020 1:29 PM MOLDED PARTS INSPECTOR Height 175.3 cm (5' 9") 03/16/2020 1:29 PM MOLDED PARTS INSPECTOR Body Mass Index 40.91 03/16/2020 1:29 PM MOLDED PARTS INSPECTOR documented in this encounter Patient Instructions Patient [...] is about the size of your fist. [employer] last reviewed this educational content on 10/02/201919993561-8695 The [employer]. All rights reserved. This information is not intended as a substitute for professional medical care. Always follow your healthcare professional's instructions. Patient Education Clinical Breast Exam Many health organizations recommend a yearly clinical breast exam. This exam may be done by a coin machine supervisor, family healthcare provider, nurse practitioner, nurse bridge gang worker, or specially trained nurse. Yearly breast exams [...] Guidelines for having clinical breast exams The [place] [employer]st[employer]ians and Gynec[employer] recommends that [...] provider about what is best for you. [employer] lea reviewed this educational content on 07/03/201919995876-1987 The [employer]. All rights reserved. This information is not [...] breast self-examination (BSE). These experts include the [place] [employer] and the [place] [employer] of Obstetricians and Gynecologists. Some experts [...] benign. This means they are not cancer. [employer] last reviewed this educational content on 08/02/201919996241-2798 The [employer]. All rights reserved. This information is not [...] once as part of routine health care. [employer] last reviewed this educational content on 01/01/201719990444-2698 The [employer]. All rights reserved. This information is not [...] of these vaccines is right for you. [employer] lea reviewed this educational content on 03/03/201819997506-4797 The [employer]. All rights reserved. This information is not [...] StayWell last reviewed this educational content on 09/01/201819996778-3967 The [employer], [employer]. [address] [place] [address], [place] [address]. All rights reserved. This information is not [...] her child during , childbirth, and . [employer] last reviewed this educational content on 09/01/201819990986-6175 The [employer]. [address] [place] [address]. All rights reserved. This information is not [...] want to have children in the future. [employer] last reviewed this educational content on 10/02/201919991475-1026 The [employer]. All rights reserved. This information is not [...] have other tests to evaluate the problem. [employer] last reviewed this educational content on 04/03/201919991710-9788 The [employer]. [address] [place] [address]. All rights reserved. This information is not [...] have them. Follow these guidelines from the [place] [employer] for cervical cancer screening: A [...] about the screening plan that's best foryou. [employer] last reviewed this educational content on 09/02/201919997509-7221 The [employer]. All rights reserved. This information is not [...] carcinoma, endocervical adenocarcinoma in situ, or adenocarcinoma.) [employer] last reviewed this educational content on 09/02/201919990516-5892 The [employer]. All rights reserved. This information is not intended as a substitute for professional medical care. Always follow your healthcare professional's instructions. 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 Patient denies any abdominal/pelvic pain. Patient complains of heavy bleeidng with regular menses. Patient reports LMP was 03/15/2020. Patient reports last sexual intercourse was on 2wks ago and has Nexplanon in place for BCM. Patient desires need for STD/STI testing. Patient denies current or past physical, sexual or emotional abuse. Histories OB History Para Term AB Living 1 1 1 1 SAB TAB Ectopic Multiple Live Births 1 # Outcome Date GA Lbr Jkaub/2nd Weight Sex Delivery Anes PTL Lv 1 [...] Yes Partners: Male control/protection: Implant Comment: Last gfocotzgtir37/30/2020 Lifestyle Physical activity Days per week: Not on file Minutes per session: Not on file Stress: Not on file Relationships Social connections Talks on phone: Not on file Gets together: Not on file Attends confucianism service: Not on file Active member of [...] Yes Partners: Male control/protection: Implant Comment: Last wltebzexhxu83/30/2020 Labs Labs are pending. Radiology No new [...] against influenza Comment: patient desires Plan: FLU VACC([id number]), 6+ MONTHS, IM, QUAD (FLUZONE/FLULAVAL/FLUARIX) Menorrhagia with [...] problems of obesity on future pregnancies and/or fci health. Return to clinic in 1 year for PRN Discussed treatment options. Medications as ordered. Reviewed patient instructions and provided printed copy. This visit did not involve counseling and coordination that comprised more than 50% of the visit time. JESSA Rodriguez 03/16/2020 2:55 PM ED PARTS INSPECTOR Nely Hunter RN - 03/16/2020 1:15 PM CST19 year old presented to the clinic for WWE. 1) Previous BCM: nexplanon 2) Desired BCM: nexplanon 3) LMP: 03/15/2020 4) Last [place]: 03/02/2020 5) Last Pap: N/a Results: N/a [...] LAB Routine Well woman exam 2:30 PM MOLDED PARTS INSPECTOR GC & CHLAMYDIA AMPLIFIED LAB Routine Screen for STD ( sexually 03/16/2020 2:30 PM ASSAY transmitted disease) MOLDED PARTS INSPECTOR TRICHOMONAS AMPLIFIED LAB Routine Screen for STD (sex ually 03/16/2020 2:30 PM ASSAY transmitted disease) MOLDED PARTS INSPECTOR GALV ONLY - SYPHILIS LAB Routine Screen for STD (sexu ally 03/16/2020 2:29 PM IGG/IGM transmitted disease) MOLDED PARTS INSPECTOR HIV 1/2 AG-AB WITH REFLEX LAB Routine Screen for STD (sexually 03/16/2020 2:29 PM transmitted disease) MOLDED PARTS INSPECTOR Name Type Priority Associated Diagnoses Order S [...] Date/Time Associated Diagnosis Comme nts FLU VACC ([id number]), Routine 03/16/2020 1:44 PM Need for pro phylactic 6+ MONTHS, IM, QUAD MOLDED PARTS INSPECTOR vaccination and inoculation against influenza documented in [...] Address Typ e / Group Dates [facility] [id number] 2018-Lasha [phone] Medicaid WOMEN nt [address] [place] [address] documented as of this encounter Advance Directives Name Relationship Healthcare Agent Relationship Co mmunication Tonya Harmon Mother Health Care Agent Chris Edwards Parent [facility] Health Care Agent
--- OUTSIDE RECORDS SUMMARY | 2020-04-03 08:16 | XMS REPORT | Summary of Care ---
:2000 Author Organization [facility] Address [address] [place], [place] [id number] Care Team Providers Name Role Phone Emy Mora Primary Care Provider Reason for Visit Reason Comments Well Woman Exam Encounter Details Date Type Department Care Team Description [facility] n[facility] for surveillance of implantable subdermal contraceptive (Primary Dx); JESSA Cavazos Nexplanon in place; [address] [place] [address] [facility] wori n exam; [address] [place] Need for prophylactic vaccination and in oculation against influenza; [place], [place] [address] Menorrhagia with regular cycle; [address] Screen for STD (sexually transmitted dis ease); [phone] Class 3 s evere obesity with body [...] with No / Unsure 03/16/2020 1:28 PM PUSHER OPERATOR someone who was confirmed or suspected to have Coronavirus / COVID-19? documented as of this encounter Last Filed Vital Signs Vital Sign Reading Time Taken Comments Blood Pressure 142/84 03/16/2020 1:29 PM PUSHER OPERATOR Pulse 109 03/16/2020 1:29 PM PUSHER OPERATOR Temperature 37.5 C (99.5 F) 03/16/2020 1:29 PM PUSHER OPERATOR Respiratory Rate 16 03/16/2020 1:29 PM PUSHER OPERATOR Oxygen Saturation - - Inhaled Oxygen Concentration - - Weight 125.6 kg (277 lb) 03/16/2020 1:29 PM PUSHER OPERATOR Height 175.3 cm (5' 9") 03/16/2020 1:29 PM PUSHER OPERATOR Body Mass Index 40.91 03/16/2020 1:29 PM PUSHER OPERATOR documented in this encounter Patient Instructions Patient [...] is about the size of your fist. [employer] last reviewed this educational content on 10/02/201919990615-3556 The [employer]. All rights reserved. This information is not intended as a substitute for professional medical care. Always follow your healthcare professional's instructions. Patient Education Clinical Breast Exam Many health organizations recommend a yearly clinical breast exam. This exam may be done by a executive account manager, family healthcare provider, nurse practitioner, nurse adventure guide, or specially trained nurse. Yearly breast exams [...] Guidelines for having clinical breast exams The [place] [employer]st[employer]ians and Gynecologists recommends that [...] provider about what is best for you. [employer] lea reviewed this educational content on 07/03/201919999401-4668 The [employer]. All rights reserved. This information is not [...] breast self-examination (BSE). These experts include the [place] [employer] and the [place] [employer] of Obstetricians and Gynecologists. Some experts [...] benign. This means they are not cancer. [employer] last reviewed this educational content on 08/02/201919991905-1487 The [employer]. All rights reserved. This information is not [...] once as part of routine health care. [employer] last reviewed this educational content on 01/01/201719992155-3850 The [employer]. All rights reserved. This information is not [...] of these vaccines is right for you. [employer] lea reviewed this educational content on 03/03/201819990501-5325 The [employer]. All rights reserved. This information is not [...] StayWell last reviewed this educational content on 09/01/201819997623-3853 The [employer], [employer]. [address] [place] [address], [place] [address]. All rights reserved. This information is not [...] her child during , childbirth, and . [employer] last reviewed this educational content on 09/01/201819996067-2411 The [employer]. [address] [place] [address]. All rights reserved. This information is not [...] want to have children in the future. [employer] last reviewed this educational content on 10/02/201919999920-7813 The [employer]. All rights reserved. This information is not [...] have other tests to evaluate the problem. [employer] last reviewed this educational content on 04/03/201919996138-7623 The [employer]. [address] [place] [address]. All rights reserved. This information is not [...] providers office. The cells are then analyzed [facility]. A Pap test is a safe [...] have them. Follow these guidelines from the [place] [employer] for cervical cancer screening: A [...] about the screening plan that's best foryou. [employer] last reviewed this educational content on 09/02/201919993456-9760 The [employer]. All rights reserved. This information is not [...] carcinoma, endocervical adenocarcinoma in situ, or adenocarcinoma.) [employer] last reviewed this educational content on 09/02/201919997069-2368 The [employer]. All rights reserved. This information is not intended as a substitute for professional medical care. Always follow your healthcare professional's instructions. ER OPERATOR documented in this encounter Progress Notes Hellen [...] Yes Partners: Male control/protection: Implant Comment: Last pehgzormrno63/30/2020 Lifestyle Physical activity Days per week: Not on file Minutes per session: Not on file Stress: Not on file Relationships Social connections Talks on phone: Not on file Gets together: Not on file Attends rastafarian service: Not on file Active member of [...] Yes Partners: Male control/protection: Implant Comment: Last ybjfbibgmly02/30/2020 Labs Labs are pending. Radiology No new [...] against influenza Comment: patient desires Plan: FLU VACC([id number]), 6+ MONTHS, IM, QUAD (FLUZONE/FLULAVAL/FLUARIX) Menorrhagia with [...] problems of obesity on future pregnancies and/or snf health. Return to clinic in 1 year for PRN Discussed treatment options. Medications as ordered. Reviewed patient instructions and provided printed copy. This visit did not involve counseling and coordination that comprised more than 50% of the visit time. JESSA Rodriguez 03/16/2020 2:55 PM ER OPERATOR Nely Hunter RN - 03/16/2020 1:15 PM CST19 year old presented to the clinic for WWE. 1) Previous BCM: nexplanon 2) Desired BCM: nexplanon 3) LMP: 03/15/2020 4) Last [place]: 03/02/2020 5) Last Pap: N/a Results: N/a [...] LAB Routine Well woman exam 2:30 PM PUSHER OPERATOR GC & CHLAMYDIA AMPLIFIED LAB Routine Screen for STD ( sexually 03/16/2020 2:30 PM ASSAY transmitted disease) PUSHER OPERATOR TRICHOMONAS AMPLIFIED LAB Routine Screen for STD (sex ually 03/16/2020 2:30 PM ASSAY transmitted disease) PUSHER OPERATOR GALV ONLY - SYPHILIS LAB Routine Screen for STD (sexu ally 03/16/2020 2:29 PM IGG/IGM transmitted disease) PUSHER OPERATOR HIV 1/2 AG-AB WITH REFLEX LAB Routine Screen for STD (sexually 03/16/2020 2:29 PM transmitted disease) PUSHER OPERATOR Name Type Priority Associated Diagnoses Order S [...] Date/Time Associated Diagnosis Comme nts FLU VACC ([id number]), Routine 03/16/2020 1:44 PM Need for pro phylactic 6+ MONTHS, IM, QUAD PUSHER OPERATOR vaccination and inoculation against influenza documented in [...] Address Typ e / Group Dates [facility] [id number] 2018-Lasha [phone] Medicaid WOMEN nt [address] [place] [address] documented as of this encounter Advance Directives Name Relationship Healthcare Agent Relationship Co mmunication Tonya Harmon Mother Health Care Agent Chris Edwards Parent [facility] Health Care Agent
--- OUTSIDE RECORDS SUMMARY | 2020-04-03 08:17 | XMS REPORT | Summary of Care ---
:2000 Author Organization [facility] Address [address] [place], [place] [id number] Care Team Providers Name Role Phone Emy Mora Primary Care Provider Reason for Visit Reason Comments Well Woman Exam Encounter Details Date Type Department Care Team Description [facility] for surveillance of implantable subdermal contraceptive (Primary Dx); JESSA Cavazos Nexplanon in place; [address] [place] [facility] wonc n exam; [address] [place] Need for prophylactic vaccination and in oculation against influenza; [place], [place] [address] Menorrhagia with regular cycle; [address] Screen for STD (sexually transmitted dis ease); [phone] Class 3 s evere obesity with body [...] with No / Unsure 03/16/2020 1:28 PM SPORTS OFFICIAL someone who was confirmed or suspected to have Coronavirus / COVID-19? documented as of this encounter Last Filed Vital Signs Vital Sign Reading Time Taken Comments Blood Pressure 142/84 03/16/2020 1:29 PM SPORTS OFFICIAL Pulse 109 03/16/2020 1:29 PM SPORTS OFFICIAL Temperature 37.5 C (99.5 F) 03/16/2020 1:29 PM SPORTS OFFICIAL Respiratory Rate 16 03/16/2020 1:29 PM SPORTS OFFICIAL Oxygen Saturation - - Inhaled Oxygen Concentration - - Weight 125.6 kg (277 lb) 03/16/2020 1:29 PM SPORTS OFFICIAL Height 175.3 cm (5' 9") 03/16/2020 1:29 PM SPORTS OFFICIAL Body Mass Index 40.91 03/16/2020 1:29 PM SPORTS OFFICIAL documented in this encounter Patient Instructions Patient [...] is about the size of your fist. Sites[employer] last reviewed this educational content on 10/02/201919993833-7989 The [employer]. All rights reserved. This information is not intended as a substitute for professional medical care. Always follow your healthcare professional's instructions. Patient Education Clinical Breast Exam Many health organizations recommend a yearly clinical breast exam. This exam may be done by a motion picture operator, family healthcare provider, nurse practitioner, nurse taper operator, or specially trained nurse. Yearly breast exams [...] Guidelines for having clinical breast exams The [place] [employer] recommends that [...] provider about what is best for you. Sites[employer] lea reviewed this educational content on 07/03/201919996496-2198 The [employer]. All rights reserved. This information is not [...] breast self-examination (BSE). These experts include the [place] [employer] and the [place] [employer] and Gynecologists. Some experts [...] benign. This means they are not cancer. Sitesimon last reviewed this educational content on 08/02/201919991919-2980 The [employer]. All rights reserved. This information is not [...] once as part of routine health care. Sites[employer] last reviewed this educational content on 01/01/201719993197-0579 The [employer]. All rights reserved. This information is not [...] of these vaccines is right for you. Sites[employer] lea reviewed this educational content on 03/03/201819993215-0842 The [employer]. All rights reserved. This information is not [...] StayWell last reviewed this educational content on 09/01/201819998587-9617 The [employer], [employer]. [address] [place] [address], [place] [address]. All rights reserved. This information is not [...] her child during , childbirth, and . Sitesimon last reviewed this educational content on 09/01/201819995240-5129 The [employer]. [address] [place] [address]. All rights reserved. This information is not [...] want to have children in the future. Sites[employer] last reviewed this educational content on 10/02/201919995706-3104 The [employer]. All rights reserved. This information is not [...] have other tests to evaluate the problem. Sitesimon last reviewed this educational content on 04/03/201919991358-3268 The [employer]. [address] [place] [address]. All rights reserved. This information is not [...] have them. Follow these guidelines from the [place] [employer] for cervical cancer screening: A [...] about the screening plan that's best foryou. Sitesimon last reviewed this educational content on 09/02/201919994918-2916 The [employer]. All rights reserved. This information is not [...] carcinoma, endocervical adenocarcinoma in situ, or adenocarcinoma.) Sitesimon last reviewed this educational content on 09/02/201919992092-3257 The [employer]. All rights reserved. This information is not intended as a substitute for professional medical care. Always follow your healthcare professional's instructions. TS OFFICIAL documented in this encounter Progress Notes Hellen [...] Yes Partners: Male control/protection: Implant Comment: Last swncgcjqhyg34/30/2020 Lifestyle Physical activity Days per week: Not on file Minutes per session: Not on file Stress: Not on file Relationships Social connections Talks on phone: Not on file Gets together: Not on file Attends mormonism service: Not on file Active member of [...] Yes Partners: Male control/protection: Implant Comment: Last ltepzdcsjmg21/30/2020 Labs Labs are pending. Radiology No new [...] against influenza Comment: patient desires Plan: FLU VACC(4340-0768), 6+ MONTHS, IM, QUAD (FLUZONE/FLULAVAL/FLUARIX) Menorrhagia with [...] problems of obesity on future pregnancies and/or long-term health. Return to clinic in 1 year for PRN Discussed treatment options. Medications as ordered. Reviewed patient instructions and provided printed copy. This visit did not involve counseling and coordination that comprised more than 50% of the visit time. JESSA Rodriguez 03/16/2020 2:55 PM TS OFFICIAL Nely Hunter RN - 03/16/2020 1:15 PM CST19 year old presented to the clinic for WWE. 1) Previous BCM: nexplanon 2) Desired BCM: nexplanon 3) LMP: 03/15/2020 4) Last [place]: 03/02/2020 5) Last Pap: N/a Results: N/a [...] LAB Routine Well woman exam 2:30 PM SPORTS OFFICIAL GC & CHLAMYDIA AMPLIFIED LAB Routine Screen for STD ( sexually 03/16/2020 2:30 PM ASSAY transmitted disease) SPORTS OFFICIAL TRICHOMONAS AMPLIFIED LAB Routine Screen for STD (sex ually 03/16/2020 2:30 PM ASSAY transmitted disease) SPORTS OFFICIAL GALV ONLY - SYPHILIS LAB Routine Screen for STD (sexu ally 03/16/2020 2:29 PM IGG/IGM transmitted disease) SPORTS OFFICIAL HIV 1/2 AG-AB WITH REFLEX LAB Routine Screen for STD (sexually 03/16/2020 2:29 PM transmitted disease) SPORTS OFFICIAL Name Type Priority Associated Diagnoses Order S [...] Health Maintenance Due Date Last Done Comments HPV VACCINES (3 - 3-dose 05/17/2020 09/07/2018, 07/03/2018 Postponed from series) 01/07/2019 (Refu sed) CHLAMYDIA SCREENING 03/16/2021 03/16/2020, 10/31/2018, 08/29/2018, Additional history exists DTaP,Tdap,and Td Vaccines 03/16/2021 Postpo shira from (1 - Tdap) 2017 (Refu sed) Depression Screening 03/16/2021 03/16/2020 MENINGOCOCCAL B VACCINES (1 03/16/2021 Post poned from of 2 - Risk Bexsero 2-dose 12/21 (Vaccine not series) available) PNEUMOCOCCAL 0-64 YEARS 03/16/2021 Postpone d from COMBINED SERIES (1 of - 2004 (Refused) PPSV23) WELL CARE VISIT: -03/16/2021 03/16/2020 YEARS (yearly) PAP SMEAR 03/16/2023 03/16/2020 INFLUENZA VACCINE Completed 03/16/2020 MENINGOCOCCAL VACCINE Aged Out No longer eligible based on patient 's age to complete this topic documented as of this encounter Goals Goal Patient Goal Associated Recent Patient-Stated? Author Type Problems Progress Quit using Tobacco Use No bety Bolivar RN (cigarettes, smokeless, etc) documented as of this encounter Procedures Procedure Name Priority Date/Time Associated Diagnosis Comme nts FLU VACC ([id number]), Routine 03/16/2020 1:44 PM Need for pro phylactic 6+ MONTHS, IM, QUAD SPORTS OFFICIAL vaccination and inoculation against influenza documented in [...] Address Typ e / Group Dates [facility] [id number] 2018-Prese [phone] Medicaid WOMEN nt [address] [place] [address] documented as of this encounter Advance Directives Name Relationship Healthcare Agent Relationship Co mmunication Tonya Harmon Mother Health Care Agent Chris Jules Step Parent [facility] Care Agent
--- OUTSIDE RECORDS SUMMARY | 2020-04-03 08:17 | XMS REPORT | Summary of Care ---
:2000 Author Organization [facility] Address [address] [place], [place] [id number] Care Team Providers Name Role Phone Emy Mora Primary Care Provider Reason for Visit Reason Comments Well Woman Exam Encounter Details Date Type Department Care Team Description [facility] for surveillance of implantable subdermal contraceptive (Primary Dx); JESSA Cavazos Nexplanon in place; [address] [place] [address] [facility] wowv n exam; [address] [place] Need for prophylactic vaccination and in oculation against influenza; [place], [place] [address] Menorrhagia with regular cycle; [address] Screen for STD (sexually transmitted dis ease); [phone] Class 3 s evere obesity with body [...] with No / Unsure 03/16/2020 1:28 PM [employer] CORE FEEDER someone who was confirmed or suspected to have Coronavirus / COVID-19? documented as of this encounter Last Filed Vital Signs Vital Sign Reading Time Taken Comments Blood Pressure 142/84 03/16/2020 1:29 PM [employer] CORE FEEDER Pulse 109 03/16/2020 1:29 PM [employer] CORE FEEDER Temperature 37.5 C (99.5 F) 03/16/2020 1:29 PM [employer] CORE FEEDER Respiratory Rate 16 03/16/2020 1:29 PM [employer] CORE FEEDER Oxygen Saturation - - Inhaled Oxygen Concentration - - Weight 125.6 kg (277 lb) 03/16/2020 1:29 PM [employer] CORE FEEDER Height 175.3 cm (5' 9") 03/16/2020 1:29 PM [employer] CORE FEEDER Body Mass Index 40.91 03/16/2020 1:29 PM [employer] CORE FEEDER documented in this encounter Patient Instructions Patient [...] is about the size of your fist. [employer] last reviewed this educational content on 10/02/201919992229-3866 The [employer]. All rights reserved. This information is not intended as a substitute for professional medical care. Always follow your healthcare professional's instructions. Patient Education Clinical Breast Exam Many health organizations recommend a yearly clinical breast exam. This exam may be done by a car retarder operator, family healthcare provider, nurse practitioner, nurse synthetic department supervisor, or specially trained nurse. Yearly breast exams [...] Guidelines for having clinical breast exams The [place] [employer]st[employer]ians and Gynecologists recommends that [...] provider about what is best for you. [employer] lea reviewed this educational content on 07/03/201919996799-4209 The [employer]. All rights reserved. This information is not [...] breast self-examination (BSE). These experts include the [place] [employer] and the [place] [employer] of Obstetricians and Gynecologists. Some experts [...] benign. This means they are not cancer. [employer] last reviewed this educational content on 08/02/201919999689-6498 The [employer]. All rights reserved. This information is not [...] once as part of routine health care. [employer] last reviewed this educational content on 01/01/201719992387-2521 The [employer]. All rights reserved. This information is not [...] of these vaccines is right for you. [employer] lea reviewed this educational content on 03/03/201819997802-4840 The [employer]. All rights reserved. This information is not [...] StayWell last reviewed this educational content on 09/01/201819992926-3737 The [employer], [employer]. [address] [place] [address], [place] [address]. All rights reserved. This information is not [...] her child during , childbirth, and . [employer] last reviewed this educational content on 09/01/201819990832-9383 The [employer]. [address] [place] [address]. All rights reserved. This information is not [...] want to have children in the future. [employer] last reviewed this educational content on 10/02/201919990908-9133 The [employer]. All rights reserved. This information is not [...] have other tests to evaluate the problem. [employer] last reviewed this educational content on 04/03/201919997576-2110 The [employer]. [address] [place] [address]. All rights reserved. This information is not [...] have them. Follow these guidelines from the [place] [employer] for cervical cancer screening: A [...] about the screening plan that's best foryou. [employer] last reviewed this educational content on 09/02/201919999590-2294 The [employer]. All rights reserved. This information is not [...] carcinoma, endocervical adenocarcinoma in situ, or adenocarcinoma.) [employer] last reviewed this educational content on 09/02/201919991951-9242 The [employer]. All rights reserved. This information is not intended as a substitute for professional medical care. Always follow your healthcare professional's instructions. OOD LAYUP LINE CORE FEEDER documented in this encounter Progress Notes Hellen [...] Yes Partners: Male control/protection: Implant Comment: Last brintfbvjhy86/30/2020 Lifestyle Physical activity Days per week: Not on file Minutes per session: Not on file Stress: Not on file Relationships Social connections Talks on phone: Not on file Gets together: Not on file Attends zoroastrian service: Not on file Active member of [...] Yes Partners: Male control/protection: Implant Comment: Last ibqohhuwecq40/30/2020 Labs Labs are pending. Radiology No new [...] against influenza Comment: patient desires Plan: FLU VACC([id number]), 6+ MONTHS, IM, QUAD (FLUZONE/FLULAVAL/FLUARIX) Menorrhagia with [...] problems of obesity on future pregnancies and/or longterm health. Return to clinic in 1 year for PRN Discussed treatment options. Medications as ordered. Reviewed patient instructions and provided printed copy. This visit did not involve counseling and coordination that comprised more than 50% of the visit time. JESSA Rodriguez 03/16/2020 2:55 PM OOD LAYUP LINE CORE FEEDER Nely Hunter RN - 03/16/2020 1:15 PM CST19 year old presented to the clinic for WWE. 1) Previous BCM: nexplanon 2) Desired BCM: nexplanon 3) LMP: 03/15/2020 4) Last [place]: 03/02/2020 5) Last Pap: N/a Results: N/a [...] LAB Routine Well woman exam 2:30 PM [employer] CORE FEEDER GC & CHLAMYDIA AMPLIFIED LAB Routine Screen for STD ( sexually 03/16/2020 2:30 PM ASSAY transmitted disease) [employer] CORE FEEDER TRICHOMONAS AMPLIFIED LAB Routine Screen for STD (sex ually 03/16/2020 2:30 PM ASSAY transmitted disease) [employer] CORE FEEDER GALV ONLY - SYPHILIS LAB Routine Screen for STD (sexu ally 03/16/2020 2:29 PM IGG/IGM transmitted disease) [employer] CORE FEEDER HIV 1/2 AG-AB WITH REFLEX LAB Routine Screen for STD (sexually 03/16/2020 2:29 PM transmitted disease) [employer] CORE FEEDER Name Type Priority Associated Diagnoses Order S [...] Date/Time Associated Diagnosis Comme nts FLU VACC ([id number]), Routine 03/16/2020 1:44 PM Need for pro phylactic 6+ MONTHS, IM, QUAD [employer] FEEDER vaccination and inoculation against influenza documented in [...] Address Typ e / Group Dates [facility] [id number] 2018-Prese [phone] Medicaid WOMEN nt [address] [place] [address] documented as of this encounter Advance Directives Name Relationship Healthcare Agent Relationship Co mmunication Tonya Harmon Mother Health Care Agent Chris Jules Step Parent [facility] Care Agent
--- NOTE | 2020-04-03 08:43 | EDPHYS ---
Physician Documentation [facility] Name: Marla Harmon Age: 19 yrs Sex: Female : 2000 Arrival Date: 04/03/2020 Time: 08:15 Bed 13 Private MD: ED Physician Mark Hilario HPI: 04/03 11:07 This 19 yrs old Female presents to ER via Ambulatory with complaints of Ear tw4 Pain. 11:07 The patient presents with pain, that is acute. The complaints affect the right ear. tw4 11:07 Onset: The symptoms/episode began/occurred 2 day(s) ago. Modifying factors: The tw4 symptoms are alleviated by nothing, the symptoms are aggravated by nothing. Associated signs and symptoms: The patient has no apparent associated signs or symptoms. Severity of symptoms: At their worst the symptoms were moderate in the emergency department the symptoms are unchanged. The patient has not experienced similar symptoms in the past. Historical: - Allergies: 08:23 NKDA; sv - PMHx: 08:23 None; sv - PSHx: 08:23 None; sv - Immunization history:: Adult Immunizations. - Social history:: Smoking status: Patient reports the use of cigarette tobacco products, denies chronic smoking, but will smoke occasionally. ROS: 11:07 Constitutional: Negative for fever, chills, and weight loss, Eyes: Negative for injury, tw4 pain, redness, and discharge. 11:07 Cardiovascular: Negative for chest pain, palpitations, and edema, Respiratory: Negative for shortness of breath, cough, wheezing, and pleuritic chest pain, Abdomen/GI: Negative for abdominal pain, nausea, vomiting, diarrhea, and constipation, Back: Negative for injury and pain, MS/Extremity: Negative for injury and deformity, Skin: Negative for injury, rash, and discoloration, Neuro: Negative for headache, weakness, numbness, tingling, and seizure. 11:07 ENT: Positive for ear pain, Negative for injury or acute deformity, drainage from ear(s), foreign body sensation, Gum pain hearing loss, pulling at ears, Teeth pain tinnitus, nasal discharge. Exam: 11:07 Constitutional: This is a well developed, well nourished patient who is awake, alert, tw4 and in no acute distress. Head/Face: Normocephalic, atraumatic. Eyes: Pupils equal round and reactive to light, extra-ocular motions intact. Lids and lashes normal. Conjunctiva and sclera are non-icteric and not injected. Cornea within normal limits. Periorbital areas with no swelling, redness, or edema. 11:07 ENT: External ear(s): are unremarkable, Ear canal(s): erythema, that is minimal, of the right canal, TM's: are normal, Examination of the other ear shows no obvious abnormality. Vital Signs: 08:21 BP 118 / 88; Pulse 104; Resp 16; Temp 97.8; Pulse Ox 99% ; Weight 125.65 kg; Height 5 sv ft. 9 in. (175.26 cm); 08:21 Body Mass Index 40.91 (125.65 kg, 175.26 cm) sv MDM: 08:17 Patient medically screened. tw4 08:42 Medical screen evaluation completed. EMTALA emergency medical condition absent. tw4 11:09 Differential diagnosis: otitis media, otitis externa, ruptured TM, acute otalgia, tw4 cerumen impaction. Data reviewed: vital signs, nurses notes. Data interpreted: Pulse oximetry: Interpretation: normal. Counseling: I had a detailed discussion with the patient and/or guardian regarding: the historical points, exam findings, and any diagnostic results supporting the discharge/admit diagnosis. Administered Medications: No medications were administered Disposition: 04/03/20 08:43 Discharged to Home. Impression: Otitis externa in other diseases classified elsewhere, right ear. - Condition is Stable. - Medication Reconciliation Form, Thank You Letter, Antibiotic Education, Prescription Opioid Use form. - Follow up: Private Physician; When: Upon discharge from the Emergency Department; Reason: Recheck today's complaints, Continuance of care, Re-evaluation by your physician. - Problem is new. - Symptoms have improved. Signatures: Zita Jackson RN RN Mark Lund MD MD tw4 Corrections: (The following items were deleted from the chart) 08:49 08:43 04/03/2020 08:43 Discharged to Home. Impression: Otitis externa in other diseases sv classified elsewhere, right ear. Condition is Stable. Forms are Medication Reconciliation Form, Thank You Letter, Antibiotic Education, Prescription Opioid Use. Follow up: Private Physician; When: Upon discharge from the Emergency Department; Reason: Recheck today's complaints, Continuance of care, Re-evaluation by your physician. Problem is new. Symptoms have improved. tw4
--- NOTE | 2020-04-03 08:43 | ER ---
Nurse's Notes [facility] Name: Marla Harmon Age: 19 yrs Sex: Female : 2000 Arrival Date: 04/03/2020 Time: 08:15 Bed 13 Private MD: Diagnosis: Otitis externa in other diseases classified elsewhere, right ear Presentation: 04/03 08:21 Chief complaint: Patient states: right ear pain x 2 days. Tylenol #3 taken HOMOEOPATH. sv Coronavirus screen: Client denies travel out of the [place] in the last 14 days. At this time, the client does not indicate any symptoms associated with coronavirus-19. Ebola Screen: No symptoms or risks identified at this time. Risk Assessment: Do you want to hurt yourself or someone else? Patient reports no desire to harm self or others. Onset of symptoms was April 01, 2020. 08:21 Method Of Arrival: Ambulatory 08:21 Acuity: NOLBERTO 4 sv 08:21 Initial Sepsis Screen: Does the patient meet any 2 criteria? HR > 90 bpm. No. Patient's sv initial sepsis screen is negative. Does the patient have a suspected source of infection? No. Patient's initial sepsis screen is negative. Triage Assessment: 08:27 General: Appears in no apparent distress. uncomfortable, Behavior is cooperative, bp appropriate for age, anxious. Pain: Complains of pain in right ear. EENT: Tympanic membrane reddened on right ear. Neuro: No deficits noted. Cardiovascular: No deficits noted. Respiratory: No deficits noted. GI: No signs and/or symptoms were reported involving the gastrointestinal system. : No signs and/or symptoms were reported regarding the genitourinary system. Derm: No deficits noted. Musculoskeletal: No deficits noted. Historical: - Allergies: 08:23 NKDA; sv - PMHx: 08:23 None; sv - PSHx: 08:23 None; sv - Immunization history:: Adult Immunizations. - Social history:: Smoking status: Patient reports the use of cigarette tobacco products, denies chronic smoking, but will smoke occasionally. Screenin:27 Abuse screen: Denies threats or abuse. Denies injuries from another. Nutritional bp screening: No deficits noted. Tuberculosis screening: No symptoms or risk factors identified. Fall Risk None identified. Assessment: 08:27 General: SEE TRIAGE NOTE. bp Vital Signs: 08:21 BP 118 / 88; Pulse 104; Resp 16; Temp 97.8; Pulse Ox 99% ; Weight 125.65 kg; Height 5 sv ft. 9 in. (175.26 cm); 08:21 Body Mass Index 40.91 (125.65 kg, 175.26 cm) sv ED Course: 08:15 Patient arrived in ED. rg4 08:17 Mark Hilario MD is Attending Physician. tw4 08:19 Cedrick Adames, RN is Primary Nurse. bp 08:23 Triage completed. sv 08:23 Arm band placed on. sv 08:27 Patient has correct armband on for positive identification. Bed in low position. Call bp light in reach. Side rails up X2. 08:49 No provider procedures requiring assistance completed. Patient did not have IV access sv during this emergency room visit. Administered Medications: No medications were administered Outcome: 08:43 Discharge ordered by MD. tw4 08:49 Medical screen evaluation completed per provider. Patient declined treatment. sv 08:49 Condition: stable 08:49 Following a medical screening exam, the patient was provided information regarding alternative care sites and resources available per registration personnel. 08:49 Patient left the ED. sv Signatures: Zita Jackson RN RN sv Garcia, Rubi 4 Cedrick Adames, NIRMAL RN Mark Dejesus MD MD tw4 Corrections: (The following items were deleted from the chart) 08:24 08:21 Pulse Ox 99%; Temp 97.8F; 125.65 kg; Height 5 ft. 9 in.; BMI: 40.9; sv sv 08:24 08:21 Acuity: NOLBERTO 5 sv sv
[2020-04-03 09:12] VITALS: BP 118/88; TEMP 97.8; O2SAT 99
== END 2020-04-03 08:49 | disposition home or self-care (01) ==
LOC: ER 08:13
DX: H60.91 Unspecified otitis externa, right ear (principal); F17.210 Nicotine dependence, cigarettes, uncomplicated
CPT/HCPCS: 99281

== ENCOUNTER 2020-05-29 08:54 | Emergency (ER) | payer SELFPAY ==
--- OUTSIDE RECORDS SUMMARY | 2020-05-29 08:56 | XMS REPORT | Continuity of Care Document ---
:2000 Author Organization [facility] t Address [address] [place] [address] Care Team Providers Name Role Phone Candida Mora DO Attending Clinician Dana Moran Attending Clinician Problems This patient has no known problems. Allergies, Adverse Reactions, Alerts This patient has no known allergies or adverse reactions. Medications This patient has no known medications. Procedures This patient has no known procedures. Encounters Start End Encounter Admission Attending Care Care Encounter Source Date/Time Date/Time Type Type Clinicians Facility Department ID 2020-04-05 2020-04-05 Emergency [facility] [id number] 06:31:00 06:45:00 Rosalina Bruce [id number] [place] [id number] [place] [id number] 2020-03-16 2020-03-16 Office Emmanuel [facility] [id number] 13:09:12 14:29:45 Visit Hellen Cortez SECURITY SCREENER [id number] [facility] [id number] MATERNAL [id number] & CHILD [address] [place] [address] Results This patient has no known results.
[2020-05-29 11:11] LABS: SARS-COV-2 RT PCR NEGATIVE (NEGATIVE)
--- NOTE | 2020-05-29 11:13 | EDPHYS ---
Physician Documentation [facility] Name: Marla Harmon Age: 19 yrs Sex: Female : 2000 Arrival Date: 05/29/2020 Time: 09:00 Bed 26 Private MD: ED Physician Francisco Barragan HPI: 05/29 09:32 This 19 yrs old Female presents to ER via Ambulatory with complaints of Sore kb Throat. 09:32 The patient presents with sore throat. The patient describes throat pain as constant. kb Onset: The symptoms/episode began/occurred yesterday. Severity of symptoms: At their worst the symptoms were mild, in the emergency department the symptoms are unchanged. Modifying factors: The symptoms are alleviated by nothing, the symptoms are aggravated by swallowing, Patient's oral intake status: good The patient has had contact with sick son. Associated signs and symptoms: Pertinent positives: Sore throat. The patient has not experienced similar symptoms in the past. The patient has not recently seen a physician. Historical: - Allergies: 09:15 NKDA; ss - Home Meds: :15 None [Active]; ss - PMHx: 09:15 None; ss - PSHx: 09:15 None; ss - Immunization history:: Adult Immunizations up to date. - Social history:: Smoking status: Patient denies any tobacco usage or history of. ROS: 09:31 Constitutional: Negative for fever, chills, and weight loss, Cardiovascular: Negative kb for chest pain, palpitations, and edema, Respiratory: Negative for shortness of breath, cough, wheezing, and pleuritic chest pain, Abdomen/GI: Negative for abdominal pain, nausea, vomiting, diarrhea, and constipation, MS/Extremity: Negative for injury and deformity, Skin: Negative for injury, rash, and discoloration, Neuro: Negative for headache, weakness, numbness, tingling, and seizure. :31 ENT: Positive for sore throat. Exam: : Constitutional: This is a well developed, well nourished patient who is awake, alert, kb and in no acute distress. Head/Face: Normocephalic, atraumatic. ENT: Nares patent. No nasal discharge, no septal abnormalities noted. Tympanic membranes are normal and external auditory canals are clear. Oropharynx with no redness, swelling, or masses, exudates, or evidence of obstruction, uvula midline. Mucous membranes moist. Neck: Trachea midline, no thyromegaly or masses palpated, and no cervical lymphadenopathy. Supple, full range of motion without nuchal rigidity, or vertebral point tenderness. No Meningismus. Chest/axilla: Normal chest wall appearance and motion. Nontender with no deformity. No lesions are appreciated. Cardiovascular: Regular rate and rhythm with a normal S1 and S2. No gallops, murmurs, or rubs. Normal PMI, no JVD. No pulse deficits. Respiratory: Lungs have equal breath sounds bilaterally, clear to auscultation and percussion. No rales, rhonchi or wheezes noted. No increased work of breathing, no retractions or nasal flaring. Skin: Warm, dry with normal turgor. Normal color with no rashes, no lesions, and no evidence of cellulitis. MS/ Extremity: Pulses equal, no cyanosis. Neurovascular intact. Full, normal range of motion. 09:31 Neuro: Orientation: is normal, Mentation: is normal, Cerebellar function: is grossly normal, Motor: is normal, Sensation: is normal. Vital Signs: 09:14 Resp 15; Weight 117.93 kg; Height 5 ft. 9 in. (175.26 cm); Pain 8/10; ss 09:22 BP 116 / 89; Pulse 107; Resp 16 S; Temp 98.9(O); Pulse Ox 99% on R/A; Pain 8/10; ec1 09:14 Body Mass Index 38.39 (117.93 kg, 175.26 cm) ss MDM: 09:05 Patient medically screened. kb 09:31 Data reviewed: vital signs, nurses notes. Data interpreted: Pulse oximetry: on room air kb is 99 %. Interpretation: normal. 09:31 Counseling: I had a detailed discussion with the patient and/or guardian regarding: the kb historical points, exam findings, and any diagnostic results supporting the discharge/admit diagnosis, lab results, the need for outpatient follow up, a family practitioner, to return to the emergency department if symptoms worsen or persist or if there are any questions or concerns that arise at home. 05/29 09:18 Order name: Strep; Complete Time: 10:51 kb 05/29 10:38 Order name: Throat Culture EDKS 05/29 11:11 Order name: COVID-19/FLU A+B; Complete Time: 11:12 EDMS Administered Medications: No medications were administered Disposition: 05/29/20 11:13 Discharged to Home. Impression: Pain in throat. - Condition is Stable. - Discharge Instructions: Sore Throat, [id number]. - Medication Reconciliation Form, Thank You Letter, Antibiotic Education, Prescription Opioid Use form. - Follow up: Emergency Department; When: As needed; Reason: Worsening of condition. Follow up: Private Physician; When: 2 - 3 days; Reason: Recheck today's complaints, Continuance of care, Re-evaluation by your physician. Addendum: 06/01/2020 05:58 Co-signature as Attending Physician, Francisco Barragan MD I agree with the assessment and k dr plan of care. 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 Signatures: Dispatcher [employer] [facility] Keisha Munguia, REMNANTS CUTTER-C REMNANTS CUTTER-CkFrancisco Bolanos MD [facility] Edna Kennedy RN RN ss Aicha Colby RN RN ec1 Corrections: (The following items were deleted from the chart) 05/29 10:24 09:19 CORONAVIRUS+MR.LAB.BRZ ordered. [facility] 10: 09:19 Influenza Screen (A \T\ B)+BA.LAB.BRZ ordered. [facility] 11:25 11:13 05/29/2020 11:13 Discharged to Home. Impression: Pain in throat. Condition is ec1 Stable. Forms are Medication Reconciliation Form, Thank You Letter, Antibiotic Education, Prescription Opioid Use. Follow up: Emergency Department; When: As needed; Reason: Worsening of condition. Follow up: Private Physician; When: 2 - 3 days; Reason: Recheck today's complaints, Continuance of care, Re-evaluation by your physician. kb
--- NOTE | 2020-05-29 11:13 | ER ---
Nurse's Notes [facility] Name: Marla Harmon Age: 19 yrs Sex: Female : 2000 Arrival Date: 05/29/2020 Time: 09:00 Bed 26 Private MD: Diagnosis: Pain in throat Presentation: 05/29 09:14 Chief complaint: Patient states: sore throat that began yesterday. Denies fever. ss Coronavirus screen: Client denies travel out of the [place] in the last 14 days. Ebola Screen: Patient denies exposure to infectious person. Patient denies travel to an Ebola-affected area in the 21 days before illness onset. Initial Sepsis Screen: Does the patient meet any 2 criteria? No. Patient's initial sepsis screen is negative. Does the patient have a suspected source of infection? No. Patient's initial sepsis screen is negative. Risk Assessment: Do you want to hurt yourself or someone else? Patient reports no desire to harm self or others. Onset of symptoms was May 28, 2020. 09:14 Method Of Arrival: Ambulatory ss 09:14 Acuity: NOLBERTO 4 ss Triage Assessment: 09:22 General: Appears in no apparent distress. comfortable, Behavior is calm, cooperative. ec1 Historical: - Allergies: 09:15 NKDA; ss - Home Meds: 09:15 None [Active]; ss - PMHx: 09:15 None; ss - PSHx: 09:15 None; ss - Immunization history:: Adult Immunizations up to date. - Social history:: Smoking status: Patient denies any tobacco usage or history of. Screenin:40 Abuse screen: Denies threats or abuse. Denies injuries from another. Nutritional ec1 screening: No deficits noted. Tuberculosis screening: No symptoms or risk factors identified. Fall Risk None identified. Assessment: 09:22 Respiratory: Airway is patent Respiratory effort is even, unlabored. ec1 09:23 Pain: Complains of pain in throat. EENT: Throat unable to visualize. ec1 10:40 Reassessment: Patient appears in no apparent distress at this time. No changes from ec1 previously documented assessment. Patient and/or family updated on plan of care and expected duration. Pain level reassessed. Vital Signs: 09:14 Resp 15; Weight 117.93 kg; Height 5 ft. 9 in. (175.26 cm); Pain 8/10; ss 09:22 BP 116 / 89; Pulse 107; Resp 16 S; Temp 98.9(O); Pulse Ox 99% on R/A; Pain 8/10; ec1 09:14 Body Mass Index 38.39 (117.93 kg, 175.26 cm) ED Course: 09:00 Patient arrived in ED. mr 09:01 Keisha Munguia FNP-C is [facility]. kb 09:01 Francisco Barragan MD is Attending Physician. kb 09:06 Aicha Colby, RN is Primary Nurse. ec1 09:15 Triage completed. ss 09:15 Arm band placed on right wrist. ss 10:40 Patient has correct armband on for positive identification. ec1 10:40 No provider procedures requiring assistance completed. Patient did not have IV access ec1 during this emergency room visit. Administered Medications: No medications were administered Outcome: 10:40 Discharged to home ambulatory. ec1 10:40 Condition: good 10:40 Discharge instructions given to patient, Instructed on discharge instructions, follow up and referral plans. Demonstrated understanding of instructions, follow-up care. 11:13 Discharge ordered by . kb 11:25 Patient left the ED. ec1 Signatures: Keisha Munguia FNP-C FNP-Yemi Luzma PhippsEdna holt, NIRMAL RN Aicha Colby, RN RN ec1
== END 2020-05-29 11:25 | disposition home or self-care (01) ==
LOC: ER 08:54
DX: R07.0 Pain in throat (principal); Z20.822 Contact with and (suspected) exposure to COVID-19
CPT/HCPCS: 0240U; 87070; 87081; 99281

== ENCOUNTER 2020-12-05 02:12 | Emergency (ER) | payer SELFPAY ==
--- OUTSIDE RECORDS SUMMARY | 2020-12-05 02:14 | XMS REPORT | Continuity of Care Document ---
:2000 Author Organization [facility] t Address [address] [place] [address] Care Team Providers Name Role Phone Candida [...] Clinicians Facility Department ID 2020-04-05 2020-04-05 [facility] [id number] 06:31:00 06:45:00 Rosalina Bruce [id number] [place] [id number] [place] [id number] 2020-03-16 2020-03-16 Office Emmanuel [facility] [id number] 13:09:12 14:29:45 Visit Hellen Cortez INFRASTRUCTURE ADMINISTRATOR [id number] [facility] [id number] MATERNAL [id number] & CHILD [address] [place] [address] Results This patient has no known results.
[2020-12-05 03:13] LABS: Absolute Lymphocytes (CBC) 2.4 K/uL (0.7-4.9); Basophils % 0.7 % (0-1.3); Hematocrit 36.3 % (36.0-45.0); Lymphocytes % 17.3 % (15.3-44.8); MPV 10.3 fL (7.6-11.3)
[2020-12-05 03:14] LABS: Protime INR 1.06
[2020-12-05 03:28] LABS: ALT/SGPT 26 U/L (12-78); AST/SGOT 14 U/L (15-37); Albumin 3.9 g/dL (3.4-5.0); Alkaline Phosphatase 69 U/L (45-117); BUN Blood Urea Nitrogen 8 mg/dL (7-18); Bicarbonate 24 mmol/L (21-32); Bilirubin Direct < 0.1 mg/dL (0-0.2); Bilirubin Total 0.1 mg/dL (0.2-1.0); Glucose Level 104 mg/dL (74-106); NT PRO-BNP 36 pg/mL (<125); Potassium 3.9 mmol/L (3.5-5.1); Protein, Total 7.9 g/dL (6.4-8.2); Sodium Level 138 mmol/L (136-145); Troponin (Emerg Dept Use Only) < 0.02 ng/mL (0.0-0.045)
[2020-12-05 03:41] LABS: Urine Blood Negative (Negative); Urine Glucose Negative (Negative); Urine Protein Negative (Negative); Urine Specific Gravity 1.025 (1.005-1.030)
[2020-12-05] MEDS ORDERED: NA CHLORIDE 0.9% 1,000 ML ONE (03:56)
[2020-12-05 05:49] LABS: Urine Bacteria LOADED /HPF (<20); Urine Mucus 2+ /HPF (NONE SEEN); Urine RBC <5 /HPF (NONE SEEN)
--- NOTE | 2020-12-05 06:13 | ER ---
Nurse's Notes [facility] Name: Marla Harmon Age: 19 yrs Sex: Female : 2000 Arrival Date: 12/05/2020 Time: 02:14 Bed DIS11 Private MD: Diagnosis: Dizziness and giddiness;Anxiety;UTI/ Urinary tract infection, site not specified Presentation: 12/05 02:29 Chief complaint: Patient states: Pt stated, " I've been getting really dizzy, espically kg when I lay down. Then I start freaking out and I cant breath and my heart races and I can hear a thud sound in my left ear. " Pt stated this has been going on a couple of weeks . Coronavirus screen: Vaccine status: Patient reports being unvaccinated. Ebola Screen: Patient negative for fever greater than or equal to 101.5 degrees Fahrenheit, and additional compatible Ebola Virus Disease symptoms Patient denies exposure to infectious person. Patient denies travel to an Ebola-affected area in the 21 days before illness onset. Initial Sepsis Screen: Does the patient meet any 2 criteria? No. Patient's initial sepsis screen is negative. Does the patient have a suspected source of infection? No. Patient's initial sepsis screen is negative. Risk Assessment: Do you want to hurt yourself or someone else? Patient reports no desire to harm self or others. Onset of symptoms is unknown. 02:29 Method Of Arrival: Ambulatory kg 02:29 Acuity: NOLBERTO 4 kg Triage Assessment: 02:32 General: Appears in no apparent distress. Behavior is calm, cooperative, appropriate kg for age, quiet. Pain: Denies pain. Neuro: Reports blurred vision dizziness. Respiratory: Reports shortness of breath When she has the dizziness Onset: The symptoms/episode began/occurred at an unknown time. the patient has mild shortness of breath. 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 - Social history:: Smoking status: Patient reports the use of cigarette tobacco products, smokes one pack cigarettes per day. Patient uses alcohol, occasionally. Screenin:38 Abuse screen: Denies threats or abuse. Nutritional screening: No deficits noted. bb Tuberculosis screening: No symptoms or risk factors identified. Fall Risk None identified. Assessment: 03:38 General: Appears in no apparent distress. Behavior is calm, cooperative. Pain: Denies bb pain. Neuro: Level of Consciousness is awake, alert, obeys commands, Oriented to person, place, time, situation. Cardiovascular: Heart tones S1 S2 present Capillary refill < 3 seconds Patient's skin is warm and dry. Rhythm is sinus rhythm. Respiratory: Airway is patent Respiratory effort is even, unlabored, Breath sounds are clear bilaterally. GI: Abdomen is obese, Bowel sounds present X 4 quads. Abd is soft and non tender X 4 quads. Derm: Skin is pink, warm \\T\\ dry. Musculoskeletal: Circulation, motion, and sensation intact. 03:57 Reassessment: Patient is alert, oriented x 3, equal unlabored respirations, skin bb warm/dry/pink. IV site intact, patent with fluids infusing. 04:47 Reassessment: Patient is alert, oriented x 3, equal unlabored respirations, skin bb warm/dry/pink. 06:25 Reassessment: Patient is alert, oriented x 3, equal unlabored respirations, skin bb warm/dry/pink. pt verbalized understanding of and agrees to plan of care discharge instructions given pt ambulated with steady gait to exit. Vital Signs: 02:29 BP 133 / 81; Pulse 82; Resp 20; Temp 97.7(TE); Pulse Ox 100% on R/A; Weight 125.19 kg kg (R); Height 5 ft. 9 in. (175.26 cm); Pain 0/10; 03:38 BP 112 / 70; Pulse 87; Resp 18 S; Pulse Ox 99% on R/A; bb 04:47 BP 119 / 65; Pulse 91; Resp 18 S; Pulse Ox 99% on R/A; bb 06:26 BP 117 / 67; Pulse 82; Resp 16 S; Temp 98.3(O); Pulse Ox 100% on R/A; bb 02:29 Body Mass Index 40.76 (125.19 kg, 175.26 cm) kg ED Course: 02:14 Patient arrived in ED. bp1 02:32 Triage completed. kg 03:05 Eulogio Das MD is Attending Physician. mh7 03:10 Troponin (emerg Dept Use Only) Sent. kg 03:10 PT-INR Sent. kg 03:10 NT PRO-BNP Sent. kg 03:10 Magnesium Sent. kg 03:10 LFT's Sent. kg 03:10 CBC with Diff Sent. kg 03:10 Basic Metabolic Panel Sent. kg 03:17 Simona Briceño, RN is Primary Nurse. bb 03:38 Patient has correct armband on for positive identification. Bed in low position. Call bb light in reach. Side rails up X 1. 03:41 Arm band placed on. bb 03:53 CT Head Brain wo Cont In Process Unspecified. EDMS 04:21 Chest Single View XRAY In Process Unspecified. EDMS 06:26 No provider procedures requiring assistance completed. IV discontinued, intact, bb bleeding controlled, No redness/swelling at site. Pressure dressing applied. Administered Medications: 03:40 Drug: NS 0.9% 1000 ml Route: IV; Rate: 1000 ml; Site: right antecubital; bb 04:49 Follow up: IV Status: Completed infusion; IV Intake: 950ml bb Intake: 04:49 IV: 950ml; Total: 950ml. bb Outcome: 06:12 Discharge ordered by . [facility] 06:26 Discharged to home ambulatory. bb 06:26 Condition: stable 06:26 Discharge instructions given to patient, Instructed on discharge instructions, follow up and referral plans. medication usage, Demonstrated understanding of instructions, follow-up care, medications, Prescriptions given X 1. 06:27 Patient left the ED. bb Signatures: Dispatcher [employer] EDMS Simona Briceño, RN RN bb Tricia Neville bp1 Eulogio Das MD MD Dorcas Parrish RN RN kg Corrections: (The following items were deleted from the chart) 02:38 02:29 Acuity: NOLBERTO 3 kg kg
--- NOTE | 2020-12-05 06:13 | EDPHYS ---
Physician Documentation [facility] Name: Marla Harmon Age: 19 yrs Sex: Female : 2000 Arrival Date: 12/05/2020 Time: 02:14 Bed DIS11 Private MD: ED Physician Eulogio Das HPI: 12/05 03:15 This 19 yrs old Female presents to ER via Ambulatory with complaints of mh7 Breathing Difficulty, Dizziness. 03:15 The patient presents with dizziness, lightheadedness. mh7 03:15 Onset: The symptoms/episode began/occurred 2 week(s) ago. Context: occurred at home, mh7 occurred while the patient was lying down, just prior to the episode the patient experienced no apparent symptoms. Modifying factors: The symptoms are alleviated by sitting up, the symptoms are aggravated by Lying down. Associated signs and symptoms: Pertinent positives: shortness of breath, Anxiety, Pertinent negatives: abdominal pain, agitation, ataxia, blurred vision, chest pain, combativeness, confusion, diaphoresis, focal weakness, head injury, headache, nausea, near-syncope, numbness, palpitations, , seizure, syncope, tingling, vomiting. Severity of symptoms: At their worst the symptoms were moderate 2 day(s) ago, in the emergency department the symptoms have improved moderately. Patient's baseline: Neuro: alert and fully oriented, Motor: no deficits, Ambulation: walks without assistance, Speech: normal. Patient states that symptoms started around time that her grandmother . She states that shortness of breath that she feels is due to anxiety.. 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 - Social history:: Smoking status: Patient reports the use of cigarette tobacco products, smokes one pack cigarettes per day. Patient uses alcohol, occasionally. ROS: 03:15 Constitutional: Negative for fever, chills, and weight loss, Eyes: Negative for injury, mh7 pain, redness, and discharge, Neck: Negative for injury, pain, and swelling, Cardiovascular: Negative for chest pain, palpitations, and edema, Abdomen/GI: Negative for abdominal pain, nausea, vomiting, diarrhea, and constipation, Back: Negative for injury and pain, : Negative for injury, bleeding, discharge, and swelling, MS/Extremity: Negative for injury and deformity, Skin: Negative for injury, rash, and discoloration, Neuro: Negative for headache, weakness, numbness, tingling, and seizure, Psych: Negative for depression, anxiety, suicide ideation, homicidal ideation, and hallucinations, Allergy/Immunology: Negative for hives, rash, and allergies, Endocrine: Negative for neck swelling, polydipsia, polyuria, polyphagia, and marked weight changes, Hematologic/Lymphatic: Negative for swollen nodes, abnormal bleeding, and unusual bruising. Exam: 03:15 Constitutional: This is a well developed, well nourished patient who is awake, alert, mh7 and in no acute distress. Head/Face: Normocephalic, atraumatic. 03:15 Eyes: Pupils equal round and reactive to light, extra-ocular motions intact. Lids and lashes normal. Conjunctiva and sclera are non-icteric and not injected. Cornea within normal limits. Periorbital areas with no swelling, redness, or edema. ENT: Nares patent. No nasal discharge, no septal abnormalities noted. Tympanic membranes are normal and external auditory canals are clear. Oropharynx with no redness, swelling, or masses, exudates, or evidence of obstruction, uvula midline. Mucous membranes moist. Neck: Trachea midline, no thyromegaly or masses palpated, and no cervical lymphadenopathy. Supple, full range of motion without nuchal rigidity, or vertebral point tenderness. No Meningismus. Chest/axilla: Normal chest wall appearance and motion. Nontender with no deformity. No lesions are appreciated. Cardiovascular: Regular rate and rhythm with a normal S1 and S2. No gallops, murmurs, or rubs. Normal PMI, no JVD. No pulse deficits. Respiratory: Lungs have equal breath sounds bilaterally, clear to auscultation and percussion. No rales, rhonchi or wheezes noted. No increased work of breathing, no retractions or nasal flaring. Abdomen/GI: Soft, non-tender, with normal bowel sounds. No distension or tympany. No guarding or rebound. No evidence of tenderness throughout. Back: No spinal tenderness. No costovertebral tenderness. Full range of motion. Skin: Warm, dry with normal turgor. Normal color with no rashes, no lesions, and no evidence of cellulitis. MS/ Extremity: Pulses equal, no cyanosis. Neurovascular intact. Full, normal range of motion. Neuro: Awake and alert, GCS 15, oriented to person, place, time, and situation. Cranial nerves II-XII grossly intact. Motor strength 5/5 in all extremities. Sensory grossly intact. Cerebellar exam normal. Normal gait. Psych: Awake, alert, with orientation to person, place and time. Behavior, mood, and affect are within normal limits. 03:15 Constitutional: The patient appears anxious. Vital Signs: 02:29 BP 133 / 81; Pulse 82; Resp 20; Temp 97.7(TE); Pulse Ox 100% on R/A; Weight 125.19 kg kg (R); Height 5 ft. 9 in. (175.26 cm); Pain 0/10; 03:38 BP 112 / 70; Pulse 87; Resp 18 S; Pulse Ox 99% on R/A; bb 04:47 BP 119 / 65; Pulse 91; Resp 18 S; Pulse Ox 99% on R/A; bb 06:26 BP 117 / 67; Pulse 82; Resp 16 S; Temp 98.3(O); Pulse Ox 100% on R/A; bb 02:29 Body Mass Index 40.76 (125.19 kg, 175.26 cm) kg MDM: 06:08 Differential diagnosis: cardiac arrhythmia, CVA, hyperventilation, hypovolemia, mh7 idiopathic dizziness, near-syncope, syncope, vertigo. Data reviewed: vital signs, nurses notes, lab test result(s), cardiac enzymes, CBC, electrolytes, EKG, radiologic studies, plain films. Data interpreted: Pulse oximetry: on room air is 99 %. Interpretation: normal. Counseling: I had a detailed discussion with the patient and/or guardian regarding: the historical points, exam findings, and any diagnostic results supporting the discharge/admit diagnosis, lab results, radiology results, the need for outpatient follow up, to return to the emergency department if symptoms worsen or persist or if there are any questions or concerns that arise at home. Response to treatment: the patient's symptoms have resolved after treatment, the patient's blood pressure is in an acceptable range, mental status has returned to baseline, the patient no longer shows bradycardia, the patient is not short of breath, the patient is not tachycardic, the patient's pain is gone, the patient's temperature has normalized. 06:12 Patient medically screened. mh7 12/05 02:38 Order name: Basic Metabolic Panel; Complete Time: 03:30 kg 12/05 02:38 Order name: CBC with Diff; Complete Time: 03:16 kg 12/05 02:38 Order name: LFT's; Complete Time: 03:30 kg 12/05 02:38 Order name: Magnesium; Complete Time: 03:30 kg 12/05 02:38 Order name: NT PRO-BNP; Complete Time: 03:30 kg 12/05 02:38 Order name: PT-INR; Complete Time: 03:30 kg 12/05 02:38 Order name: Troponin (emerg Dept Use Only); Complete Time: 03:30 kg 12/05 03:41 Order name: Urine Dipstick-Ancillary; Complete Time: 03:48 EDMS 12/05 03:41 Order name: Urine Dipstick-Ancillary; Complete Time: 03:48 EDMS 12/05 03:43 Order name: Urine --Ancillary (enter results) oe 12/05 03:44 Order name: Urine Microscopic Only; Complete Time: 05:51 bb 12/05 03:57 Order name: SARS-COV-2 RT PCR; Complete Time: 04:04 EDMS 12/05 04:05 Order name: D-Dimer; Complete Time: 05:30 mh7 12/05 02:38 Order name: EKG; Complete Time: 02:38 kg 12/05 02:38 Order name: EKG - Nurse/Tech; Complete Time: 03:09 kg 12/05 02:38 Order name: IV Saline Lock; Complete Time: 03:09 kg 12/05 02:38 Order name: Labs collected and sent; Complete Time: 03:09 kg 12/05 03:16 Order name: Urine Dipstick-Ancillary (obtain specimen); Complete Time: 03:40 mh7 12/05 03:16 Order name: Urine Test (obtain specimen); Complete Time: 03:40 mh7 12/05 03:30 Order name: Chest Single View XRAY [facility] 12/05 03:31 Order name: CT Head Brain wo Cont [facility] 12/05 05:50 Order name: Urine Culture EDMS Administered Medications: 03:40 Drug: NS 0.9% 1000 ml Route: IV; Rate: 1000 ml; Site: right antecubital; bb 04:49 Follow up: IV Status: Completed infusion; IV Intake: 950ml bb Disposition Summary: 12/05/20 06:12 Discharge Ordered Location: Home [facility] Problem: an ongoing problem [facility] Symptoms: have improved [facility] Condition: Stable [facility] Diagnosis - Dizziness and giddiness [facility] - Anxiety [facility] - UTI/ Urinary tract infection, site not specified [facility] Followup: [facility] - With: Private Physician - When: 1 - 2 days - Reason: Worsening of condition, Recheck today's complaints, Continuance of care, Re-evaluation by your physician Discharge Instructions: - Discharge Summary Sheet [facility] - Urinary Tract Infection, Adult, Buns-yc-Jcoh [facility] - Dizziness, Xhji-ry-Ddfi [facility] - Managing Anxiety, Adult [facility] Forms: - Medication Reconciliation Form [facility] - Thank You Letter [facility] - Antibiotic Education [facility] - Prescription Opioid Use [facility] Prescriptions: - Cipro 500 mg Oral Tablet - take 1 tablet by ORAL route every 12 hours for 7 days; 14 tablet; Refills: 0, [facility] Product Selection Permitted Signatures: Dispatcher [employer] Simona Talavera, RN RN Eulogio Pathak MD MD [facility] Dorcas Tinajero RN RN kg Corrections: (The following items were deleted from the chart) 02:59 02:46 CORONAVIRUS+MRRowenaLABRowenaBRZ ordered. EDMS EDMS
[2020-12-05 06:30] LABS: Urine Specific Gravity/Preg 1.025 (1.005-1.030)
[2020-12-05 06:37] VITALS: BP 117/67; TEMP 98.3; O2SAT 100
--- NOTE | 2020-12-05 08:11 | RAD REPORT ---
EXAM DESCRIPTION: Franky Single View12/05/2020 4:21 am CLINICAL HISTORY: sob COMPARISON: 2008 FINDINGS: The lungs appear clear of acute infiltrate. The heart is normal size IMPRESSION: No acute abnormalities displayed
--- NOTE | 2020-12-05 15:11 | EKG ---
Test Date: 2020-12-05 Test Time: 03:02:53 Nitric Acid Plant Operator: KIYA MEASUREMENT RESULTS: Intervals: Rate: 86 HI: 144 QRSD: 86 QT: 360 QTc: 430 [place]: P: 40 HI: 144 QRS: 62 T: 25 INTERPRETIVE STATEMENTS: Normal sinus rhythm Normal ECG No previous ECG available for comparison Electronically Signed On 12-05-20 15:10:42 CDT by Maximiliano De La Rosa
--- NOTE | 2020-12-05 15:20 | RAD REPORT ---
EXAM DESCRIPTION: CT - Head Brain Wo Cont - 12/05/2020 6:35 am CLINICAL HISTORY: 19 years, Female, DIZZINESS COMPARISON: None. FINDINGS: Multiple transaxial tomograms of the brain were obtained from the base of the skull to the vertex without contrast. 2-D multiplanar reformats and the coronal and sagittal plane were performed and reviewed. This exam was performed according to our departmental dose-optimization protocol, which includes auto mated exposure control, adjustment of the mA and/or kV according to patient size and/or use of iterat rianna reconstruction technique. Brain parenchyma as well as the ambriz and white matter differentiation demonstrate to be unremarkable. There is no midline shift and/or mass effect. There is no evidence for acute hemorrhage and/or infar ction. Lateral ventricles and cisterns displace normal appearance. No intra or extra axial fluid collections were seen. The calvarium is intact with no evidence for fracture. The visualized portions of the paranasal sinuses and orbits demonstrate to be clear. IMPRESSION: NO ACUTE INTRACRANIAL HEMORRHAGE. UNREMARKABLE CT SCAN OF THE HEAD WITHOUT CONTRAST. Electronically signed by: Pete Sood MD 12/05/2020 4:15 AM CDT Due to temporary technical issues with the PACS/Fluency reporting system, reports are being signed by the in house radiologists without review as a courtesy to insure prompt reporting. The interpreting radiologist is fully responsible for the content of the report.
== END 2020-12-05 06:27 | disposition home or self-care (01) ==
LOC: ER 02:12
DX: N39.0 Urinary tract infection, site not specified (principal); F41.9 Anxiety disorder, unspecified; F17.210 Nicotine dependence, cigarettes, uncomplicated; Z20.822 Contact with and (suspected) exposure to COVID-19
CPT/HCPCS: 36415; 70450; 71045; 80048; 80076; 81003; 81015; 81025; 83735; 83880; 84484; 85025; 85379; 85610; 87086; 87088; 93005; 96360; 99284; J7030; U0003

== ENCOUNTER 2021-01-09 19:09 | Emergency (ER) | payer SELFPAY ==
[2021-01-09 20:08] LABS: Protime INR 1.07
[2021-01-09 20:09] LABS: Absolute Lymphocytes (CBC) 2.7 K/uL (0.7-4.9); Basophils % 0.8 % (0-1.3); Hematocrit 36.1 % (36.0-45.0); Lymphocytes % 21.6 % (15.3-44.8); MPV 10.4 fL (7.6-11.3); RBC Red Blood Cell Count 4.59 M/uL (3.86-4.86)
[2021-01-09 20:10] LABS: Urine Blood 2+ (Negative); Urine Glucose Negative (Negative); Urine Protein Negative (Negative); Urine Specific Gravity 1.025 (1.005-1.030)
[2021-01-09] MEDS ORDERED: MORPHINE 2 MG/ML SYR ONE ×2 (20:18→21:04)
[2021-01-09] MEDS ORDERED: NA CHLORIDE 0.9% 1,000 ML ONE (20:18)
[2021-01-09] MEDS ORDERED: ONDANSETRON 4 MG/2 ML VIAL ONE ×2 (20:19→21:05)
[2021-01-09 20:27] LABS: Barbiturates NEGATIVE (NEGATIVE); Benzodiazepines NEGATIVE (NEGATIVE); Cocaine NEGATIVE (NEGATIVE); METHAMPHETAM NEGATIVE (NEGATIVE); Methadone NEGATIVE (NEGATIVE); Opiates NEGATIVE (NEGATIVE); Phencyclidine NEGATIVE (NEGATIVE); THC Cannibis NEGATIVE (NEGATIVE)
[2021-01-09 20:27] LABS: ALT/SGPT 27 U/L (12-78); AST/SGOT 13 U/L (15-37); Albumin 3.7 g/dL (3.4-5.0); Alkaline Phosphatase 63 U/L (45-117); BUN Blood Urea Nitrogen 12 mg/dL (7-18); Bicarbonate 23 mmol/L (21-32); Bilirubin Direct < 0.1 mg/dL (0-0.2); Bilirubin Total 0.2 mg/dL (0.2-1.0); Glucose Level 130 mg/dL (74-106); NT PRO-BNP 17 pg/mL (<125); Potassium 3.8 mmol/L (3.5-5.1); Protein, Total 7.6 g/dL (6.4-8.2); Sodium Level 140 mmol/L (136-145); Troponin (Emerg Dept Use Only) < 0.02 ng/mL (0.0-0.045)
--- NOTE | 2021-01-09 20:32 | RAD REPORT ---
EXAM DESCRIPTION: RAD - Chest Single View - 01/09/2021 8:11 pm CLINICAL HISTORY: CHEST PAIN Chest pain. COMPARISON: Chest Single View dated 12/05/2020; CHEST PA AND LAT 2 VIEW dated 02/02/2009; CHEST SINGLE VIEW dated 01/01/1999 FINDINGS: Portable technique limits examination quality. The lungs are grossly clear. The heart is normal in size. No displaced fractures. IMPRESSION: No acute intrathoracic process suspected.
[2021-01-09 22:10] LABS: Urine Specific Gravity/Preg 1.025 (1.005-1.030)
[2021-01-09 22:26] LABS: T3 Free 3.13 pg/mL (2.18-3.98); Thyroid Stimulating Hormone 1.31 uIU/mL (0.360-3.740)
--- NOTE | 2021-01-09 23:07 | EDPHYS ---
Physician Documentation [facility] Name: Marla Harmon Age: 20 yrs Sex: Female : 2000 Arrival Date: 01/09/2021 Time: 19:11 Bed 20 Private MD: ED Physician Kristian Waller HPI: 01/09 19:45 This 20 yrs old Female presents to ER via Ambulatory with complaints of Chest cp Pain, Numbness Of Arm. 19:45 The patient presents with a history of heart racing. cp 19:45 Context: The symptoms occur at rest. Onset: The symptoms/episode began/occurred today. cp Duration: The patient or guardian reports multiple episodes, that are intermittent. Associated signs and symptoms: Pertinent positives: chest pain, radiating pain and numbness down arm, Pertinent negatives: anxiety, cough, fever, SOB, syncope. Severity of symptoms: in the emergency department the symptoms have improved mildly. 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 - Social history:: Smoking status: Patient reports the use of cigarette tobacco products, smokes one-half pack cigarettes per day. ROS: 19:50 Constitutional: Negative for body aches, chills, fever, poor PO intake. cp 19:50 Cardiovascular: Positive for chest pain, palpitations, Negative for edema. cp 19:50 Respiratory: Negative for cough, shortness of breath, wheezing. 19:50 Eyes: Negative for injury, pain, redness, and discharge. cp 19:50 Neck: Negative for pain with movement, pain at rest, stiffness. 19:50 Abdomen/GI: Negative for abdominal pain, nausea, vomiting, and diarrhea. 19:50 Back: Negative for injury or acute deformity, decreased range of motion. 19:50 Neuro: Positive for numbness, Negative for altered mental status, dizziness, headache, syncope, weakness. 19:50 All other systems are negative. Exam: 19:27 ECG was reviewed by the Attending Physician. cp 19:55 Constitutional: The patient appears in no acute distress, alert, awake, cp non-diaphoretic, non-toxic, well developed, well nourished, obese. 19:55 Head/Face: Normocephalic, atraumatic. cp 19:55 Eyes: Periorbital structures: appear normal, Pupils: equal, round, and reactive to light and accomodation, Extraocular movements: intact throughout, Conjunctiva: normal, no exudate, no injection, Sclera: no appreciated abnormality, Lids and lashes: appear normal, bilaterally. 19:55 ENT: External ear(s): are unremarkable, Nose: is normal, Mouth: Lips: moist, Oral mucosa: moist, Posterior pharynx: Airway: no evidence of obstruction, patent. 19:55 Neck: ROM/movement: is normal, is supple, without pain, no range of motions limitations, no nuchal rigidity. 19:55 Chest/axilla: Inspection: normal, Palpation: is normal, no crepitus, no tenderness. 19:55 Cardiovascular: Rate: tachycardic, Rhythm: regular, Heart sounds: murmur, not appreciated, Edema: is not appreciated, JVD: is not appreciated. 19:55 Respiratory: the patient does not display signs of respiratory distress, Respirations: normal, no use of accessory muscles, no retractions, labored breathing, is not present, Breath sounds: are clear throughout, no decreased breath sounds, no stridor, no wheezing. 19:55 Abdomen/GI: Inspection: abdomen appears normal, Palpation: abdomen is soft and non-tender, in all quadrants. 19:55 Back: pain, is absent, ROM is normal. 19:55 Neuro: Orientation: to person, place \T\ time. Mentation: is normal, Motor: moves all fours, strength is normal, Sensation: no obvious gross deficits. Vital Signs: 19:27 BP 134 / 69; Pulse 110; Resp 20; Temp 98.9(O); Pulse Ox 99% on R/A; Weight 125.19 kg lp1 (R); Height 5 ft. 9 in. (175.26 cm); Pain 6/10; 20:32 BP 108 / 70 LA Sitting (auto/lg); Pulse 92; Resp 18; Pulse Ox 99% on R/A; Pain 4/10; wg 20:42 BP 110 / 65; Pulse 88; Resp 18; Pulse Ox 99% on R/A; Pain 2/10; wg 22:02 BP 101 / 64; Pulse 87; Resp 18; Pulse Ox 99% on R/A; Pain 0/10; wg 23:30 BP 106 / 70; Pulse 80; Resp 18; Pulse Ox 99% on R/A; Pain 0/10; wg 19:27 Body Mass Index 40.76 (125.19 kg, 175.26 cm) lp1 MDM: 19:37 Patient medically screened. cp 20:00 Differential diagnosis: arrythmia, dehydration, stress disorder. cp 23:05 Data reviewed: vital signs, nurses notes, lab test result(s), EKG, radiologic studies, cp plain films. 23:05 Test interpretation: by ED physician or midlevel provider: ECG, plain radiologic cp studies. 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 23:05 Response to treatment: the patient's symptoms have markedly improved after treatment, cp and as a result, I will discharge patient. 23:05 Special discussion: Based on the patient's history, exam, and Dx evaluation, there is cp no indication for emergent intervention or inpatient Tx. It is understood by the patient/guardian that if the Sx's persist or worsen they need to return immediately for re-evaluation. 01/09 19:37 Order name: Basic Metabolic Panel wg 01/09 19:37 Order name: CBC with Diff; Complete Time: 21:20 wg 01/09 21:20 Interpretation: Normal except: WBC 12.60; HGB 11.9; MCV 78.7; MCH 25.8; NEUT A 8.8. cp 01/09 19:37 Order name: LFT's; Complete Time: 21:20 wg 01/09 19:37 Order name: Magnesium; Complete Time: 21:20 wg 01/09 19:37 Order name: NT PRO-BNP; Complete Time: 21:20 wg 01/09 19:37 Order name: PT-INR; Complete Time: 21:20 wg 01/09 19:37 Order name: Troponin (emerg Dept Use Only); Complete Time: 21:20 wg 01/09 19:37 Order name: Basic Metabolic Panel; Complete Time: 21:20 EDMS 01/09 21:20 Interpretation: Normal except: CL 108; GLUC 130. cp 01/09 19:46 Order name: UDS; Complete Time: 21:20 cp 01/09 19:46 Order name: D-Dimer; Complete Time: 22:49 cp 01/09 19:46 Order name: TSH; Complete Time: 22:49 cp 01/09 19:46 Order name: T3 Free; Complete Time: 22:49 cp 01/09 20:09 Order name: Urine Dipstick-Ancillary; Complete Time: 21:20 EDMS 01/09 21:21 Interpretation: Normal except: UBLD 2+. cp 01/09 19:37 Order name: EKG; Complete Time: 19:37 cp 01/09 19:37 Order name: EKG - Nurse/Tech; Complete Time: 19:39 cp 01/09 19:37 Order name: XRAY Chest (1 view); Complete Time: 21:20 wg 01/09 19:37 Order name: Cardiac monitoring; Complete Time: 19:39 wg 01/09 19:37 Order name: EKG - Nurse/Tech; Complete Time: 19:39 wg 01/09 19:37 Order name: IV Saline Lock; Complete Time: 19:39 wg 01/09 19:37 Order name: Labs collected and sent; Complete Time: 19:39 wg 01/09 19:37 Order name: O2 Per Protocol; Complete Time: 19:39 wg 01/09 19:37 Order name: O2 Sat Monitoring; Complete Time: 19:39 wg 01/09 20:23 Order name: SARS-COV-2 RT PCR; Complete Time: 21:20 EDMS 01/09 21:48 Order name: Urine --Ancillary (enter results) wg 01/09 21:49 Order name: Urine --Ancillary; Complete Time: 22:49 EDMS 01/09 19:46 Order name: Urine Dipstick-Ancillary (obtain specimen); Complete Time: 20:09 cp 01/09 19:46 Order name: Urine Test (obtain specimen); Complete Time: 20:09 cp EC:27 Rate is 106 beats/min. Rhythm is regular. [place] interval is normal. QRS interval is cp normal. T waves are Inverted in leads III, aVR. Interpreted by me. Reviewed by me. Administered Medications: 20:00 Drug: morphine 2 mg Route: IVP; Infused Over: 2 mins; Site: left hand; wg 20:09 Drug: NS 0.9% 1000 ml Route: IV; Rate: 1 bolus; Infused Over: 1 hrs; Site: left hand; wg 23:32 Follow up: IV Status: Completed infusion; IV Intake: 1000ml wg 20:42 Drug: morphine 2 mg Route: IVP; Infused Over: 2 mins; Site: left hand; wg 21:10 Follow up: Response: No adverse reaction; Pain is decreased wg 20:42 Drug: Zofran (Ondansetron) 4 mg Route: IVP; Infused Over: 2 mins; Site: left hand; wg 21:10 Follow up: Response: No adverse reaction; Nausea is decreased wg Disposition Summary: 01/09/21 23:06 Discharge Ordered Location: Home cp Problem: new cp Symptoms: have improved cp Condition: Stable cp Diagnosis - Palpitations cp Followup: cp - With: Cayetano Tong MD - When: 2 - 3 days - Reason: Recheck today's complaints Discharge Instructions: - Discharge Summary Sheet cp - Palpitations cp - Aspirin and Your Heart cp Forms: - Medication Reconciliation Form cp - Thank You Letter cp - Antibiotic Education cp - Prescription Opioid Use cp Addendum: 01/14/2021 00:01 Co-signature as Attending Physician, Kristian Waller MD I agree with the assessment and r n plan of care. Attestation: The patient's history, exam findings, diagnostics, and a summary of any interventions or procedures was reviewed in detail with Parvez MARINO. Signatures: Dispatcher [employer] EDMS Kristian Waller MD MD rn Pena, Laura, RN RN lp1 Parvez De Los Santos PA PA cp Gamba, Liam, RN wg Corrections: (The following items were deleted from the chart) 01/09 20:23 19:47 CORONAVIRUS+[email or web address] ordered. EDMS EDMS
--- NOTE | 2021-01-09 23:07 | ER ---
Nurse's Notes [facility] Name: Marla Harmon Age: 20 yrs Sex: Female : 2000 Arrival Date: 01/09/2021 Time: 19:11 Bed 20 Private MD: Diagnosis: Palpitations Presentation: 01/09 19:27 Chief complaint: Patient states: Chest pain that has been intermittent since November, lp1 reports this episode began about 1700 this evening, reports pain to center of chest radiating down left arm with dizziness. Coronavirus screen: At this time, the client does not indicate any symptoms associated with coronavirus-19. Ebola Screen: No symptoms or risks identified at this time. Initial Sepsis Screen: Does the patient meet any 2 criteria? No. Patient's initial sepsis screen is negative. Does the patient have a suspected source of infection? No. Patient's initial sepsis screen is negative. Risk Assessment: Do you want to hurt yourself or someone else? Patient reports no desire to harm self or others. Onset of symptoms was January 09, 2021 at 17:00. 19:27 Method Of Arrival: Ambulatory lp1 19:27 Acuity: NOLBERTO 3 lp1 Triage Assessment: 19:32 General: Appears uncomfortable, obese, well groomed, Behavior is cooperative, wg appropriate for age, anxious. Pain: Complains of pain in chest Pain currently is 6 out of 10 on a pain scale. Quality of pain is described as "Pounding" Pain began Started yesterday, went to bed last night and woke up this morning with it. Neuro: No deficits noted. Cardiovascular: Reports chest pain, lightheadedness, Denies diaphoresis, nausea, palpitations, shortness of breath, syncope, vomiting, Rhythm is sinus rhythm. Respiratory: No deficits noted. GI: No deficits noted. 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 - Social history:: Smoking status: Patient reports the use of cigarette tobacco products, smokes one-half pack cigarettes per day. Screenin:28 Abuse screen: Denies threats or abuse. Denies injuries from another. Nutritional lp1 screening: No deficits noted. Tuberculosis screening: No symptoms or risk factors identified. Fall Risk None identified. Assessment: 19:34 Also complains of Pt states she believes this may be related to anxiety. States she has wg had similar episodes in the past and states it was not cardiac related. Pt denies any specific recent stressors but states she has been anxious and gets tingling in her left arm. Pain: Pain does not radiate. 19:37 Reassessment: Pt c/o tingling in left forearm/hand. Denies pain in left arm. wg 20:42 Reassessment: Pt c/o some nausea and still has some discomfort in her chest however it wg has improved. Pt medicated for both. 21:45 Reassessment: Patient appears in no apparent distress at this time. No changes from wg previously documented assessment. Patient is alert, oriented x 3, equal unlabored respirations, skin warm/dry/pink. Patient states feeling better. Patient states symptoms have improved. 22:01 Reassessment: Pt states she no longer has pain or nausea but does have dizziness. wg 23:31 Reassessment: Patient appears in no apparent distress at this time. Patient is alert, wg oriented x 3, equal unlabored respirations, skin warm/dry/pink. Patient states feeling better. Vital Signs: 19:27 BP 134 / 69; Pulse 110; Resp 20; Temp 98.9(O); Pulse Ox 99% on R/A; Weight 125.19 kg lp1 (R); Height 5 ft. 9 in. (175.26 cm); Pain 6/10; 20:32 BP 108 / 70 LA Sitting (auto/lg); Pulse 92; Resp 18; Pulse Ox 99% on R/A; Pain 4/10; wg 20:42 BP 110 / 65; Pulse 88; Resp 18; Pulse Ox 99% on R/A; Pain 2/10; wg 22:02 BP 101 / 64; Pulse 87; Resp 18; Pulse Ox 99% on R/A; Pain 0/10; wg 23:30 BP 106 / 70; Pulse 80; Resp 18; Pulse Ox 99% on R/A; Pain 0/10; wg 19:27 Body Mass Index 40.76 (125.19 kg, 175.26 cm) lp1 ED Course: 19:11 Patient arrived in ED. rg4 19:28 Triage completed. lp1 19:28 Arm band placed on. lp1 19:28 Patient has correct armband on for positive identification. phototypesetting equipment monitor on. Pulse lp1 ox on. NIBP on. 19:28 Patient maintains SpO2 saturation greater than 95% on room air. lp1 19:29 EKG done, by ED staff, reviewed by Parvez Sheth MD. lp1 19:32 Marcellus Erazo, NIRMAL is Primary Nurse. wg 19:36 Parvez De Los Santos PA is PHCP. cp 19:36 Kristian Waller MD is Attending Physician. cp 19:38 Placed in gown. Bed in low position. Call light in reach. Side rails up X2. wg 19:38 Inserted saline lock: 20 gauge in left hand, using aseptic technique. Blood collected. wg 19:39 Basic Metabolic Panel Sent. wg 19:39 CBC with Diff Sent. wg 19:39 LFT's Sent. wg 19:39 Magnesium Sent. wg 19:39 NT PRO-BNP Sent. wg 19:39 PT-INR Sent. wg 19:39 Troponin (emerg Dept Use Only) Sent. wg 19:39 Basic Metabolic Panel Sent. wg 20:08 T3 Free Sent. wg 20:08 TSH Sent. wg 20:08 D-Dimer Sent. wg 20:09 XRAY Chest (1 view) Sent. wg 20:11 XRAY Chest (1 view) In Process Unspecified. EDMS 20:30 SARS-COV-2 RT PCR Sent. wg 22:00 Urine --Ancillary (enter results) Sent. wg 22:00 Urine --Ancillary Sent. wg 23:06 Cayetano Tong MD is Referral Physician. cp 23:31 IV discontinued, intact, bleeding controlled, No redness/swelling at site. Pressure wg dressing applied. Administered Medications: 20:00 Drug: morphine 2 mg Route: IVP; Infused Over: 2 mins; Site: left hand; wg 20:09 Drug: NS 0.9% 1000 ml Route: IV; Rate: 1 bolus; Infused Over: 1 hrs; Site: left hand; wg 23:32 Follow up: IV Status: Completed infusion; IV Intake: 1000ml wg 20:42 Drug: morphine 2 mg Route: IVP; Infused Over: 2 mins; Site: left hand; 21:10 Follow up: Response: No adverse reaction; Pain is decreased 20:42 Drug: Zofran (Ondansetron) 4 mg Route: IVP; Infused Over: 2 mins; Site: left hand; 21:10 Follow up: Response: No adverse reaction; Nausea is decreased wg Intake: 23:32 IV: 1000ml; Total: 1000ml. wg Outcome: 23:06 Discharge ordered by MD. rhonda 23:31 Discharged to home ambulatory, with family. 23:31 Condition: stable 23:31 Discharge instructions given to patient, Instructed on discharge instructions, follow up and referral plans. Demonstrated understanding of instructions, follow-up care. 23:33 Patient left the ED. wg Signatures: Dispatcher [employer] EDMS Nataly Dai RN RN lp1 Parvez De Los Santos PA PA cp Garcia, Rubi rg4 Marcellus Erazo RN wg Corrections: (The following items were deleted from the chart) 20:13 19:27 BP 134 / 69; Pulse 110bpm; Resp 20bpm; Pulse Ox 99% RA; 125.19 kg Reported; lp1 Height 5 ft. 9 in.; BMI: 40.7; Pain 6/10; lp1 20:23 20:08 CORONAVIRUS+MR.LAB.OREN drawn and sent. EDMS
[2021-01-09 23:39] VITALS: TEMP 98.9; O2SAT 99
[2021-01-09 23:45] VITALS: BP 106/70
== END 2021-01-09 23:33 | disposition home or self-care (01) ==
LOC: ER 19:09
DX: R00.2 Palpitations (principal); F17.210 Nicotine dependence, cigarettes, uncomplicated
CPT/HCPCS: 36415; 71045; 80048; 80076; 80307; 81003; 81025; 83735; 83880; 84443; 84481; 84484; 85025; 85379; 85610; 93005; 96361; 96374; 96375; 99285; J2270; J2405; J7030; U0003

== ENCOUNTER 2022-01-25 16:28 | Emergency (ER) | payer SELFPAY ==
--- OUTSIDE RECORDS SUMMARY | 2022-01-25 16:31 | XMS REPORT | Continuity of Care Document ---
:2000 Author Organization [facility] t Address [address] [place] [address] Care Team Providers Name Role Phone Aicha Ramachandran Primary Care Physician Doctor Unassigned, Perrin Attending Clinician Unavailable UNKNOWN, ATTENDING Attending Clinician Unavailable VANI MONTOYA Attending Clinician Unavailable Vani Johnson Attending Clinician [phone] Rachana Teague LMSW Attending Clinician Unavailable Sergio Gastelum Attending Clinician Tye Travis DO Attending Clinician Hellen Moran Attending Clinician HELLEN WOODS Attending Clinician Unavailable AICHA AC Attending Clinician Unavailable Rosailna Ac DO Attending Clinician Aicha Ramachandran Attending Clinician Payers Payer Name Policy Type Policy Number Effective Date Expiration Date S yoshi MEDICAID PENDING PENDING 2020 00:00:00 Problems Condition Condition Condition Status Onset Resolution Last Treating Co mments Source Name Details Category Date Date Treatment Clinician Date Other Other Disease Active Univers general general 2-23 [place] of [place] 00 Me dical for for Branch contracept contracept rianna rianna management management Lump or Lump or Disease Active Univers mass in mass in 2-23 ity of breast breast 00:00: [place] 00 Medical Branch Need for Need for Disease Active 2019-04 Unive rs prophylact prophylact 2-14 it y of ic ic 00:00: [place] vaccinatio vaccinatio 00 Me dical n and n and Branch inoculatio inoculatio n against n against influenza influenza Menorrhagi Menorrhagi Disease Active 2019-04 U nivers a with a with 2-14 ity of regular regular 00:00: [place] cycle cycle 00 Medical Branch Class 3 Class 3 Disease Active 2019-04 Univers severe severe 2-14 ity of obesity obesity 00:00: [place] with body with body 00 Medi alysha mass index mass index Br anch (BMI) of (BMI) of 40.0 to 40.0 to 44.9 in 44.9 in adult, adult, unspecifie unspecifie d obesity d obesity type, type, unspecifie unspecifie d whether d whether serious serious comorbidit comorbidit y present y present Breakthrou Breakthrou Disease Active U nivers gh gh 5-29 ity of bleeding bleeding 00:00: [place] on on 00 Medical Nexplanon Nexplanon Bran ch Chlamydia Chlamydia Disease Active Uni vers trachomati trachomati 5-29 it y of s s 00:00: [place] infection infection 00 Medi alysha of lower of lower Branch genitourin genitourin kaycee sites kaycee sites Nexplanon Nexplanon Disease Active Uni vers removal removal 4-18 ity of 00:00: [place] 00 Medical Branch Obesity Obesity Disease Active Univers (BMI (BMI 4-02 ity of 30-39.9) 30-39.9) 00:00: [place] 00 Medical Branch Screen for Screen for Disease Active U nivers STD STD 4-02 ity of (sexually (sexually [place] transmitte transmitte 00 Me dical d disease) d disease) Br anch Allergies, Adverse Reactions, Alerts Allergy Allergy Status Severity Reaction(s) Onset Inactive Treating Comm ents Source Name Type Date Date Clinician NO KNOWN Drug Active Univers ALLERGIE Class ity of S [place] [facility] Social History Social Habit Start Date Stop Date Quantity Comments Source History of tobacco 2016-07-03 Cigarette Smoker University of use 00:00:00 [facility] Exposure to 2021-09-12 2021-09-22 Not sure University of SARS-CoV-2 (event) 00:00:00 12:16:00 [facility] Alcohol intake 2021-06-30 2021-06-30 Current drinker Unive rsity of 00:00:00 00:00:00 of alcohol [facility] (finding) Branch Cigarettes smoked 2021-05-26 2021-05-26 Univers ity of current (pack per 00:00:00 00:00:00 [facility] ) - Reported Branch Tobacco use and 2021-05-26 2021-05-26 Smokeless Universit y of exposure 00:00:00 00:00:00 tobacco non-user [facility] dical Branch History SDOH 2020-03-16 2020-03-16 3 University o f Alcohol Frequency 00:00:00 00:00:00 [facility] edical Branch History SDOH 2020-03-16 2020-03-16 99 University o f Alcohol Std Drinks 00:00:00 00:00:00 [facility] Branch History SDOH 2020-03-16 2020-03-16 99 University o f Alcohol Binge 00:00:00 00:00:00 [facility] al [place] Alcohol Comment 2020-03-16 2020-03-16 socially Universit y of 00:00:00 00:00:00 [facility] Sex Assigned At [birth year] Universit y of 00:00:00 00:00:00 [facility] Smoking Status Start Date Stop Date Source Smokes tobacco daily 2021-05-26 00:00:00 Univers ity of [facility] Medications Ordered Filled Start Stop Current Ordering Indication Dosage Frequency Signature Comments Components Source Medication Medication Date Date Medication? Clinician (SIG) Name Name No known No Univers medications 3-31 ity of 16:12: [address] No known No Univers medications 3-31 ity of 16:12: [address] No known No No known Unive rs medications 3-31 medication it y of 16:12: s [address] Immunizations Ordered Filled Immunization Date Status Comments Sourc e Immunization Name Name HPV9 2021-05-26 Completed University of 00:00:00 [facility] HPV9 2021-05-26 Completed University of 00:00:00 [facility] HPV9 2021-05-26 Completed University of 00:00:00 [facility] Influenza Virus 2020-03-16 Completed Universit y of Vaccine Quad .5 mL 00:00:00 [facility] IM 6+ MO Branch Influenza Virus 2020-03-16 Completed Universit y of Vaccine Quad .5 mL 00:00:00 [place] [facility] 6+ MO Branch Influenza Virus 2020-03-16 Completed Universit y of Vaccine Quad .5 mL 00:00:00 [facility] 6+ MO Branch HPV9 2018-09-07 Completed University of 00:00:00 [facility] HPV9 2018-09-07 Completed University of 00:00:00 [facility] HPV9 2018-09-07 Completed University of 00:00:00 [facility] HPV9 2018-07-03 Completed University of 00:00:00 [facility] HPV9 2018-07-03 Completed University of 00:00:00 [facility] HPV9 2018-07-03 Completed University of 00:00:00 [facility] Vital Signs Vital Name Observation Time Observation Value Comments Source Systolic blood 2021-06-30 14:10:00 116 mm[Hg] Univer sity of pressure [facility] Diastolic blood 2021-06-30 14:10:00 66 mm[Hg] Unive rsity of pressure [facility] Heart rate 2021-06-30 14:10:00 96 /min [facility] Body temperature 2021-06-30 14:10:00 36.33 Gin [facility] Respiratory rate 2021-06-30 14:10:00 18 /min [facility] Body height 2021-06-30 14:10:00 175.3 cm [facility] Body weight 2021-06-30 14:10:00 112.129 kg [facility] BMI 2021-06-30 14:10:00 36.51 kg/m2 [facility] Procedures Procedure Date / Time Performing Clinician Source Performed BCCS-RELATED 2022-01-19 05:01:00 Doctor Unassigned, No Univer sity of [place] DOCUMENTATION Name [facility] BI ULTRASOUND BREAST 2021-09-22 18:30:10 [facility]ani Mont[facility] LEFT [facility] Encounters Start End Encounter Admission Attending Care Care Encounter Source Date/Time Date/Time Type Type Clinicians Facility Department ID 2021-02-02 Emergency [facility] [id number] Univers 06:13:19 ity of [facility] 2021-01-30 Emergency [facility] [id number] Univers 14:34:27 ity [facility] 2022-01-19 2022-01-19 Orders Doctor MARIA G 1.2.840.114 [id number] Univers 00:00:00 00:00:00 Only Unassigned, JESUS [id number] ity of [place] [facility] [id number] [place] as [id number] [address] 2021-12-31 2021-12-31 Outpatient R UNKNOWN, [facility] [id number] Univers 09:40:00 09:40:00 ATTENDING ity [facility] 2021-09-22 2021-09-22 Outpatient R AKINSIPE, [facility] [id number] Univers 12:17:01 23:59:00 VANI ity o [facility] [place] [facility] 2021-09-22 2021-09-22 [facility] 1.2.840.114 [id number] Univers 12:17:01 23:59:00 Encounter Vani Velásquez SPECIALTY [id number] ity of [id number] [phone] [place] [address] Branch [place] 2021-09-22 2021-09-22 Outpatient R AKINSIPE, [facility] [id number] Univers 00:00:00 00:00:00 VANI ity o f [facility] 2021-06-30 2021-06-30 Outpatient R AKINSIPE, [facility] [id number] Univers 12:45:00 13:32:57 VANI ity o f [facility] 2021-06-30 2021-06-30 Outpatient R AKINSIPE, [facility] [id number] Univers 12:45:00 12:45:00 VANI ity o f [facility] 2021-06-30 2021-06-30 Outpatient R AKINSIPE, [facility] [id number] Univers 09:15:00 09:49:37 VANI hair [facility] [place] [facility] 2021-06-30 2021-06-30 [facility] [id number] Univers 09:15:00 09:49:37 Visit Vani C [employer] [id number] ity of [facility] [id number] [place] MATERNAL [phone] [facility] ical & CHILD [address] [place] [address] 2021-06-30 2021-06-30 Outpatient R AKINSIPE, [facility] [id number] Univers 09:15:00 09:49:37 VANI hair [facility] [place] [facility] 2021-06-30 2021-06-30 Outpatient R AKINSIPE, [facility] [id number] Univers 09:15:00 09:49:37 VANI hair [facility] [place] [facility] 2021-06-30 2021-06-30 Orders Doctor MARIA G [id number] [id number] Univers 00:00:00 00:00:00 Only Unassigned, JESUS [id number] ity of [place] [facility] [id number] [place] as [phone] [facility] [address] [place] 2021-06-02 2021-06-02 Case NACHO TeagueEmy 1.2.840.114 [id number] Univers 00:00:00 00:00:00 Management Rachana FARRELLY [id number] [id number] [id number] [facility] [address] [place] 2021-05-26 2021-05-26 [facility] [id number] Univers 10:15:00 10:54:44 Visit [facility] C [employer] [id number] ity of [facility] [id number] [place] MATERNAL [id number] [facility] ical & CHILD [address] [place] [address] 2021-05-26 2021-05-26 Outpatient R [facility]INSIPE, [facility] [id number] Univers 10:15:00 10:54:44 VANI roberts [facility] 2021-05-26 2021-05-26 [facility] [id number] Univers 10:15:00 10:15:00 VANI graf o f [facility] 2021-05-26 2021-05-26 Orders Doctor CUMMINS [id number] [id number] Univers 00:00:00 00:00:00 Only Unassigned, JESUS [id number] ity of [place] [facility] [id number] [place] as [phone] [facility] 009 Branch 2021-05-21 2021-05-21 [facility] [id number] Univers 10:00:00 10:00:00 VANI hair [facility] [place] [facility] 2021-01-12 2021-01-12 Emergency Sergio Calloway [facility] 1.2.840.114 [id number] Univers 15:00:00 17:49:00 [facility] [id number] i ty of [place] [phone] [facility] 084 Branch 2020-07-10 2020-07-10 Outpatient R [facility] [id number] Univers 12:30:00 12:30:00 ity of [facility] 2020-06-23 2020-06-23 Patient Thaddeus [facility] 1.2.840.114 [id number] Univers 00:00:00 00:00:00 Outreach Tye PRIMARY [id number] i ty of [facility] [id number] [place] [facility] [phone] Ak dical [address] 2020-06-03 2020-06-03 Office ePggy [facility] 1.2.840.114 [id number] Univers 10:28:44 11:00:41 Visit Hellen R [employer] [id number] ity of [facility] [id number] [place] MATERNAL [phone] [facility] ical & [address] 2020-06-03 2020-06-03 Outpatient Dana PEGGY [facility] [id number] Univers 10:45:00 10:45:00 HELLEN graf o alejandra [facility] 2020-06-03 2020-06-03 Outpatient Dana OWODS, [facility] [id number] Univers 10:45:00 10:45:00 HELLEN graf o alejandra [facility] 2020-04-15 2020-04-15 Outpatient Dana PEGGY [facility] [id number] Univers 14:30:00 14:30:00 HELLEN graf o alejandra [facility] 2020-04-15 2020-04-15 Outpatient R PEGGY [facility] [id number] Univers 14:30:00 14:30:00 HELLEN graf o alejandra [facility] 2020-04-14 2020-04-14 Outpatient Dana WOODS [facility] [id number] Univers 13:30:00 13:30:00 HELLEN graf o alejandra [facility] 2020-04-09 2020-04-09 Outpatient Dana WOODS, [facility] [id number] Univers 13:30:00 13:30:00 HELLEN hair [facility] 2020-04-07 2020-04-07 Outpatient Dana AC [facility] [id number] Univers 13:45:00 13:45:00 AICHA graf [facility] 2020-04-05 2020-04-05 [facility] 1.2.840.114 [id number] 06:31:00 06:45:00 Rosalina Bruce 350.1.13.10 [place] [id number] [place] [id number] [facility] 2020-04-05 2020-04-05 [facility] 1.2.840.114 [id number] Univers 06:31:00 06:45:00 Rosalina Bruce [id number] ity [facility] [id number] [facility] [id number] [address] 2020-03-16 2020-03-16 [facility] 1.2.840.114 [id number] 13:09:12 14:29:45 Visit Marymorgan R [employer] [id number] REGIONAL [id number] MATERNAL [phone] & CHILD [address] [place] [address] 2020-03-16 2020-03-16 Office Peggy [facility] 1.2.840.114 [id number] Univers 13:09:12 14:29:45 Visit Marymorgan R [employer] [id number] ity of REGIONAL [id number] [place] as MATERNAL [id number] [facility] & CHILD [address] [place] [address] 2020-03-16 2020-03-16 Outpatient R PEGGY [facility] [id number] Univers 13:15:00 13:15:00 HERRERAMORGAN ity o f [facility] 2020-03-16 2020-03-16 Orders Doctor MARIA G 1.2.840.114 [id number] Univers 00:00:00 00:00:00 Only Unassigned, JESUS [id number] ity of [place] [facility]PITAL [id number] [place] as [id number] [address] 2018-12-19 2018-12-19 Telephone [facility] 1.2.840.114 [id number] Univers 00:00:00 00:00:00 Aicha Quevedo [employer] [id number] it y of REGIONAL [id number] [place] MATERNAL [phone] [facility] & CHILD [address] [place] [address] 2018-12-11 2018-12-11 Orders Doctor MARIA G 1.2.840.114 [id number] Univers 00:00:00 00:00:00 Only Unassigned, JESUS 350.1.13.10 ity of [place] HOSPITAL [id number] [place] as [id number] [address] 2018-10-31 2018-10-31 [facility] [id number] Univers 15:40:31 15:57:46 Visit Aicha Quevedo [employer] 350.1.13.10 it y of REGIONAL [id number] [place] MATERNAL [phone] Med ical & CHILD [address] [place] [address] - [place] Results This patient has no known results.
[2022-01-25] MEDS ORDERED: IBUPROFEN 400 MG TAB ONE (17:00)
[2022-01-25] MEDS ORDERED: dexAMETHasone 10 MG/ML VIAL ONE (17:00)
--- NOTE | 2022-01-25 18:47 | EDPHYS ---
Physician Documentation [facility] Name: Marla Harmon Age: 21 yrs Sex: Female : 2000 Arrival Date: 01/25/2022 Time: 16:31 Bed 12 Private MD: ED Physician Eliezer Andrade HPI: 01/25 16:57 This 21 yrs old Female presents to ER via Ambulatory with complaints of Sore Throat, pm1 Fever. 16:57 The patient presents with sore throat. The patient describes throat pain as raw, pm1 scratchy. Onset: The symptoms/episode began/occurred today. Severity of symptoms: in the emergency department the symptoms are actually worse. Modifying factors: the symptoms are aggravated by swallowing, Patient's oral intake status: good unaware of sick contact. Associated signs and symptoms: Pertinent positives: fever, headache, Pertinent negatives cough, earache. The patient has not experienced similar symptoms in the past. The patient has not recently seen a physician. 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 - Social history:: Smoking status: unknown. ROS: 16:57 Eyes: Negative for injury, pain, redness, and discharge. pm1 16:57 Neck: Negative for injury, pain, and swelling, Cardiovascular: Negative for chest pain, palpitations, and edema, Respiratory: Negative for shortness of breath, cough, wheezing, and pleuritic chest pain, Abdomen/GI: Negative for abdominal pain, nausea, vomiting, diarrhea, and constipation, Back: Negative for injury and pain, MS/Extremity: Negative for injury and deformity, Skin: Negative for injury, rash, and discoloration. 16:57 Constitutional: Positive for body aches, fever. 16:57 ENT: Positive for sore throat, Negative for ear pain, difficulty swallowing, difficulty handling secretions. 16:57 Neuro: Positive for headache, Negative for numbness, tingling. 16:57 All other systems are negative. Exam: 16:57 Constitutional: This is a well developed, well nourished patient who is awake, alert, pm1 and in no acute distress. Head/Face: Normocephalic, atraumatic. 16:57 Back: No spinal tenderness. No costovertebral tenderness. Full range of motion. Skin: Warm, dry with normal turgor. Normal color with no rashes, no lesions, and no evidence of cellulitis. MS/ Extremity: Pulses equal, no cyanosis. Neurovascular intact. Full, normal range of motion. 16:57 Eyes: Exam is negative for acute changes, Periorbital structures: no acute changes, Pupils: no acute changes, Extraocular movements: no acute changes, Conjunctiva: no acute changes, no injection. 16:57 ENT: Exam is negative for acute changes, External ear(s): no acute changes, Ear canal(s): no acute changes, TM's: no acute changes, Mouth: no acute changes, Lips: normal, moist, Oral mucosa: normal, pink and intact, moist, Posterior pharynx: Tonsils: bilaterally enlarged, with erythema, no exudate, no ulcerations, peritonsillar mass, is not appreciated, pooling of secretions, is not appreciated, Voice: no acute changes. 16:57 Neck: Exam negative for ROM/movement: no acute changes, Lymph nodes: no appreciated lymphadenopathy. 16:57 Cardiovascular: Rate: tachycardic, Rhythm: Pulses: no pulse deficits are appreciated. 16:57 Respiratory: Exam negative for acute changes, respiratory distress, shortness of breath, Breath sounds: are clear throughout. 16:57 Abdomen/GI: Exam negative for acute changes, Inspection: abdomen appears normal, Palpation: abdomen is soft and non-tender, in all quadrants. 16:57 Neuro: Exam negative for acute changes, Orientation: is normal, Mentation: is normal, Motor: is normal, moves all fours. Vital Signs: 16:47 BP 136 / 72; Pulse 119; Resp 20; Temp 101.3; Pulse Ox 99% on R/A; Weight 108.86 kg; em6 Height 5 ft. 9 in. (175.26 cm); Pain 6/10; 17:50 BP 115 / 60; Pulse 108; Resp 18; Pulse Ox 100% ; kr3 18:37 BP 112 / 56; Pulse 103; Resp 18; Temp 98.6; Pulse Ox 100% on R/A; kr3 16:47 Body Mass Index 35.44 (108.86 kg, 175.26 cm) em6 MDM: 16:42 Patient medically screened. pm1 18:20 Data reviewed: vital signs. Data interpreted: Pulse oximetry: on room air is 99 %. pm1 Interpretation: normal. 18:46 Counseling: I had a detailed discussion with the patient and/or guardian regarding: the pm1 historical points, exam findings, and any diagnostic results supporting the discharge/admit diagnosis, lab results, the need for outpatient follow up, to return to the emergency department if symptoms worsen or persist or if there are any questions or concerns that arise at home. 01/25 16:56 Order name: Strep; Complete Time: 17:48 pm1 01/25 16:56 Order name: Flu; Complete Time: 17:59 pm1 01/25 16:56 Order name: COVID-19 SARS RT PCR (Document "Date of Onset" if Symptomatic); Complete pm1 Time: 18:20 01/25 17:50 Order name: Throat Culture EDMS Administered Medications: 17:10 Drug: Ibuprofen 800 mg Route: PO; kr3 19:06 Follow up: Response: No adverse reaction kr3 17:26 Drug: Decadron (dexamethasone) 10 mg Route: IM; Site: right deltoid; kr3 19:06 Follow up: Response: No adverse reaction kr3 Disposition Summary: 01/25/22 18:47 Discharge Ordered Location: Home pm1 Problem: new pm1 Symptoms: have improved pm1 Condition: Stable pm1 Diagnosis - Acute pharyngitis, unspecified pm1 Followup: pm1 - With: Emergency Department - When: As needed - Reason: Worsening of condition Followup: pm1 - With: Private Physician - When: 2 - 3 days - Reason: Recheck today's complaints, Continuance of care, Re-evaluation by your physician Discharge Instructions: - Pharyngitis pm1 - Discharge Summary Sheet kr3 Forms: - Medication Reconciliation Form pm1 - Thank You Letter pm1 - Antibiotic Education pm1 - Prescription Opioid Use pm1 - Work release form kr3 Signatures: Dispatcher [employer] EDMS Marcus Cho NP OPERATOR AUTOMATED PROCESS pm1 Elba Tapia RN RN kr3 Natty Terry RN RN em6
--- NOTE | 2022-01-25 18:47 | ER ---
Nurse's Notes [facility] Name: Marla Harmon Age: 21 yrs Sex: Female : 2000 Arrival Date: 01/25/2022 Time: 16:31 Bed 12 Private MD: Diagnosis: Acute pharyngitis, unspecified Presentation: 01/25 16:47 Chief complaint: Patient states: woke up with a sore throat. took temperature and it em6 was 102 and I took Tylenol. My head hurts and I feel chills. Coronavirus screen: Client denies travel out of the [place] in the last 14 days. Ebola Screen: Patient negative for fever greater than or equal to 101.5 degrees Fahrenheit, and additional compatible Ebola Virus Disease symptoms. Initial Sepsis Screen: Does the patient meet any 2 criteria? Temp <36.0*C (96.8*F)) or > 38.3*C (100.9*F). HR > 90 bpm. Yes Does the patient have a suspected source of infection? No. Patient's initial sepsis screen is negative. Risk Assessment: Do you want to hurt yourself or someone else? Patient reports no desire to harm self or others. Onset of symptoms was January 25, 2022. 16:47 Acuity: NOLBERTO 4 em6 16:47 Method Of Arrival: Ambulatory em6 Triage Assessment: 16:50 General: Appears uncomfortable, Behavior is cooperative. em6 16:51 Pain: Complains of pain in head. EENT:. Neuro: Level of Consciousness is awake, alert, em6 obeys commands, Oriented to person, place, time, situation. Cardiovascular: Patient's skin is warm and dry. Respiratory: Airway is patent Respiratory effort is even, unlabored, Respiratory pattern is regular, symmetrical, tachypnea. GI: Abdomen is non-distended. : No signs and/or symptoms were reported regarding the genitourinary system. Derm: No signs and/or symptoms reported regarding the dermatologic system. Musculoskeletal: Circulation, motion, and sensation intact. 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 - Social history:: Smoking status: unknown. Screenin:51 Abuse screen: Denies threats or abuse. Nutritional screening: No deficits noted. em6 Tuberculosis screening: No symptoms or risk factors identified. 19:05 Fall Risk None identified. kr3 Assessment: 16:50 Pain: Complains of pain in head Pain does not radiate. Pain currently is 7 out of 10 on em6 a pain scale. Respiratory: Airway is patent Respiratory effort is even, unlabored. EENT: Throat is reddened. 16:51 Respiratory: Breath sounds are clear bilaterally. em6 17:00 Reassessment: No changes from previously documented assessment. Patient and/or family kr3 updated on plan of care and expected duration. Pain level reassessed. Patient is alert, oriented x 3, equal unlabored respirations, skin warm/dry/pink. 18:00 Reassessment: No changes from previously documented assessment. Patient and/or family kr3 updated on plan of care and expected duration. Pain level reassessed. Patient is alert, oriented x 3, equal unlabored respirations, skin warm/dry/pink. Vital Signs: 16:47 BP 136 / 72; Pulse 119; Resp 20; Temp 101.3; Pulse Ox 99% on R/A; Weight 108.86 kg; em6 Height 5 ft. 9 in. (175.26 cm); Pain 6/10; 17:50 BP 115 / 60; Pulse 108; Resp 18; Pulse Ox 100% ; kr3 18:37 BP 112 / 56; Pulse 103; Resp 18; Temp 98.6; Pulse Ox 100% on R/A; kr3 16:47 Body Mass Index 35.44 (108.86 kg, 175.26 cm) em6 ED Course: 16:31 Patient arrived in ED. mr 16:41 Marcus Cho, RENALDO is PHCP. pm1 16:41 Eliezer Andrade MD is Attending Physician. pm1 16:42 Elba Tapia RN is Primary Nurse. kr3 16:49 Triage completed. em6 16:52 Arm band placed on. em6 16:53 Patient placed in an exam room, on a stretcher. em6 17:00 Bed in low position. Call light in reach. Side rails up X 1. kr3 17:26 COVID-19 SARS RT PCR (Document "Date of Onset" if Symptomatic) Sent. kr3 17:26 Flu Sent. kr3 17:26 Strep Sent. kr3 19:05 No provider procedures requiring assistance completed. Patient did not have IV access kr3 during this emergency room visit. Administered Medications: 17:10 Drug: Ibuprofen 800 mg Route: PO; kr3 19:06 Follow up: Response: No adverse reaction kr3 17:26 Drug: Decadron (dexamethasone) 10 mg Route: IM; Site: right deltoid; kr3 19:06 Follow up: Response: No adverse reaction kr3 Medication: 19:05 VIS not applicable for this client. kr3 Outcome: 18:47 Discharge ordered by . pm1 19:05 Discharged to home ambulatory. kr3 19:05 Condition: stable 19:05 Discharge instructions given to patient, Instructed on discharge instructions, follow up and referral plans. 19:06 Patient left the ED. kr3 Signatures: Luzma Phipps Patrick, DIRECTOR OF SALES AND MARKETING DIRECTOR OF SALES AND MARKETING pm1 Elba Tapia, RN RN kr3 Natty Terry RN RN em6
[2022-01-25 19:23] VITALS: O2SAT 100
[2022-01-25 19:25] VITALS: BP 112/56; TEMP 98.6
== END 2022-01-25 19:06 | disposition home or self-care (01) ==
LOC: ER 16:28
DX: J02.9 Acute pharyngitis, unspecified (principal); Z20.822 Contact with and (suspected) exposure to COVID-19
CPT/HCPCS: 87070; 87081; 87804; 96372; 99283; J1100; U0003

== ENCOUNTER 2022-04-19 08:07 | Emergency (ER) | payer SELFPAY ==
--- OUTSIDE RECORDS SUMMARY | 2022-04-19 08:10 | XMS REPORT | Continuity of Care Document ---
:2000 Author Organization [facility] t Address [address] [place] [address] Care Team Providers Name Role Phone Vani Johnson Primary Care Physician [phone] VANI MONTOYA Attending Clinician Unavailable SIMONA APARICIO Attending Clinician Unavailable Vani Johnson Attending Clinician [phone] [facility]ician Unavailable Simona Aparicio CNM Attending Clinician Doctor Unassigned, [place] Attending Clinician Unavailable UNKNOWN, ATTENDING Attending Clinician Unavailable Rachana Teague LMSW Attending Clinician Unavailable Sergio Gastelum Attending Clinician Tye Travis DO Attending Clinician Hellen Moran Attending Clinician HELLEN WOODS Attending Clinician Unavailable AICHA AC Attending Clinician Unavailable Rosalina Ac DO Attending Clinician Aicha Ramachandran Attending Clinician Payers Payer Name Policy Type Policy Number Effective Date Expiration Date S yoshi [facility] [id number] 2018 00:00:00 MEDICAID PENDING PENDING 2020 00:00:00 Problems Condition [...] in 2-23 ity of breast breast 00:00: [place] 00 Medical Branch Need for Need for Disease Active 2019-04 Unive rs prophylact prophylact 2-14 it y of ic ic 00:00: [place] vaccinatio vaccinatio 00 Me dical n and n and Branch inoculatio inoculatio n against n against influenza influenza Menorrhagi Menorrhagi Disease Active 2019-04 [place] with a with 2-14 ity of [...] y present Breakthrou Breakthrou Disease Active [place] gh gh 5-29 ity of bleeding bleeding 00:00: [place] on on Medical Nexplanon Nexplanon Bran ch Chlamydia Chlamydia Disease Active Uni vers trachomati trachomati 5-29 it y of s s 00:00: [place] infection infection 00 Medi alysha of lower of lower Branch genitourin genitourin kaycee sites kaycee sites Nexplanon Nexplanon Disease Active Uni vers removal removal 4-18 ity of 00:00: [place] 00 Medical Branch Obesity Obesity Disease Active Univers (BMI (BMI 4-02 ity of 30-39.9) 30-39.9) 00:00: [place] 00 Medical Branch Screen for Screen for Disease Active [place] STD STD 4-02 ity of (sexually (sexually 00:00: [place] transmitte transmitte 00 Me dical d disease) d disease) Br anch Allergies, Adverse Reactions, Alerts Allergy Allergy Status Severity Reaction(s) Onset Inactive Treating Comm ents Source Name Type Date Date Clinician NO KNOWN Drug Active Univers ALLERGIE Class ity of S [facility] Social History Social Habit Start Date Stop Date Quantity Comments Source History of tobacco 2016-07-03 Cigarette Smoker University of use 00:00:00 [facility] Exposure to 2022-02-07 2022-02-17 Not sure University SARS-CoV-2 (event) 00:00:00 09:45:00 [facility] Cigarettes smoked 2022-02-17 2022-02-17 Univers ity of current (pack per 00:00:00 00:00:00 [facility] ) - Reported Branch Alcohol intake 2022-02-17 2022-02-17 Current drinker Unive rsity of 00:00:00 00:00:00 of alcohol [facility] (finding) Branch Tobacco use and 2022-02-17 2022-02-17 Smokeless Universit y of exposure 00:00:00 00:00:00 tobacco non-user [facility] dical Branch History SDNH 2020-03-16 2020-03-16 3 University o f Alcohol Frequency 00:00:00 00:00:00 [facility] Branch History SDOH 2020-03-16 2020-03-16 99 University o f Alcohol Std Drinks 00:00:00 00:00:00 [facility] History SDNH 2020-03-16 2020-03-16 99 [place] o f Alcohol Binge 00:00:00 00:00:00 [facility] al Branch Alcohol Comment 2020-03-16 2020-03-16 socially Universit y of 00:00:00 00:00:00 [facility] Sex Assigned At [birth year] Universit y of 00:00:00 00:00:00 [facility] Smoking Status Start Date Stop Date Source Smokes tobacco daily 2022-02-17 00:00:00 Univers ity of [facility] Medications Ordered Filled Start Stop Current Ordering Indication Dosage Frequency Signature Comments Components Source Medication Medication Date Date Medication? Clinician (SIG) Name Name No known 2021-04 No No known Unive rs medications 1-17 medication it y of 10:28: s [address] doxycycline 2021-04- Yes [id number] 100mg Take 1 Univers hyclate 100 -11 11-19 capsule by i ty of mg capsule 00:00: 05:59 mouth [place] 00 :00 every 12 Medical (twelve) Branch hours for 7 days. doxycycline 2021-04- Yes [id number] 100mg Take 1 Univers hyclate 100 -11 11-19 capsule by i ty of mg capsule 00:00: 05:59 mouth [place] 00 :00 every 12 Medical (twelve) Branch hours for 7 days. doxycycline 2021-04- Yes [id number] 100mg Take 1 Univers hyclate 100 - 11-19 capsule by i ty of mg capsule 00:00: 05:59 mouth [place] 00 :00 every 12 Medical (twelve) Branch hours for 7 days. azithromyci 2021-04- Yes [id number] 1000mg Take 2 Univers n 1-10 11-11 04 tablets by ity of (ZITHROMAX) 00:00: 05:59 mouth once [place] 500 mg 00 :00 now for 1 Medical tablet dose. Branch azithromyci 2021-04- Yes [id number] 1000mg Take 2 Univers n 1-10 11-11 04 tablets by ity of (ZITHROMAX) 00:00: 05:59 mouth once [place] 500 mg 00 :00 now for 1 Medical tablet dose. Branch No known No Univers medications 3-31 ity of 16:12: [address] No known 0 No Univers medications 3-31 ity of 16:12: [address] No known 0 No No known Unive rs medications 3-31 medication it y of 16:12: s [address] Immunizations Ordered Filled Immunization Date Status Comments [facility] e Immunization Name Name HPV9 2021-05-26 Completed University of 00:00:00 [facility] HPV9 2021-05-26 Completed University of 00:00:00 [facility] HPV9 2021-05-26 Completed University of 00:00:00 [facility] HPV9 2021-05-26 Completed University of 00:00:00 [facility] HPV9 2021-05-26 Completed University of 00:00:00 [facility] HPV9 2021-05-26 Completed University of 00:00:00 [place] [facility] HPV9 2021-05-26 Completed University of 00:00:00 [place] [facility] HPV9 2021-05-26 Completed University of 00:00:00 [place] [facility] HPV9 2021-05-26 Completed University of 00:00:00 [facility] Influenza Virus 2020-03-16 Completed Universit y of Vaccine Quad .5 mL 00:00:00 [place] Medical IM 6+ MO Branch Influenza Virus 2020-03-16 Completed Universit y of Vaccine [place] .5 mL 00:00:00 [place] Medical IM 6+ MO Branch Influenza Virus 2020-03-16 Completed Universit y of Vaccine [place] .5 mL 00:00:00 [place] Medical IM 6+ MO Branch Influenza Virus 2020-03-16 Completed Universit y of Vaccine [place] .5 mL 00:00:00 [place] Medical IM 6+ MO Branch Influenza Virus 2020-03-16 Completed Universit y of Vaccine [place] .5 mL 00:00:00 [place] Medical IM 6+ MO Branch Influenza Virus 2020-03-16 Completed Universit y of Vaccine [place] .5 mL 00:00:00 [place] Medical IM 6+ MO Branch Influenza Virus 2020-03-16 Completed Universit y of Vaccine [place] .5 mL 00:00:00 [place] Medical IM 6+ MO Branch Influenza Virus 2020-03-16 Completed Universit y of Vaccine [place] .5 mL 00:00:00 [place] Medical IM 6+ MO Branch Influenza Virus 2020-03-16 Completed Universit y of Vaccine [place] .5 mL 00:00:00 [place] [facility] 6+ MO Branch HPV9 2018-09-07 Completed University of 00:00:00 [place] [facility] HPV9 2018-09-07 Completed University of 00:00:00 [place] [facility] HPV9 2018-09-07 Completed University of 00:00:00 [place] [facility] HPV9 2018-09-07 Completed University of 00:00:00 [place] [facility] HPV9 2018-09-07 Completed University of 00:00:00 [place] [facility] HPV9 2018-09-07 Completed University of 00:00:00 [place] [facility] HPV9 2018-09-07 Completed University of 00:00:00 [place] [facility] HPV9 2018-09-07 Completed University of 00:00:00 [place] [facility] HPV9 2018-09-07 Completed University of 00:00:00 [place] [facility] HPV9 2018-07-03 Completed University of 00:00:00 [place] [facility] HPV9 2018-07-03 Completed University of 00:00:00 [place] [facility] HPV9 2018-07-03 Completed University of 00:00:00 [place] [facility] HPV9 2018-07-03 Completed University of 00:00:00 [place] [facility] HPV9 2018-07-03 Completed University of 00:00:00 [place] [facility] HPV9 2018-07-03 Completed University of 00:00:00 [place] [facility] HPV9 2018-07-03 Completed University of 00:00:00 [place] [facility] HPV9 2018-07-03 Completed University of 00:00:00 [place] [facility] HPV9 2018-07-03 Completed University of 00:00:00 [facility] [facility] Vital Signs Vital Name Observation Time Observation Value Comments Source Systolic blood 2022-02-17 15:46:00 131 mm[Hg] Univer sity of pressure [facility] Diastolic blood 2022-02-17 15:46:00 80 mm[Hg] Unive rsity of pressure [facility] Heart rate 2022-02-17 15:46:00 104 /min Universi ty [facility] Body temperature 2022-02-17 15:46:00 36.94 Gin Univ ersity of [facility] Respiratory rate 2022-02-17 15:46:00 18 /min Univ ersity of [facility] Body weight 2022-02-17 15:46:00 108.455 kg Universi ty [facility] BMI 2022-02-17 15:46:00 35.31 kg/m2 Universi ty [facility] Systolic blood 2022-02-10 21:46:00 121 mm[Hg] Univer sity of pressure [facility] Diastolic blood 2022-02-10 21:46:00 69 mm[Hg] Unive rsity of pressure [facility] Heart rate 2022-02-10 21:46:00 92 /min Universi ty [facility] Body temperature 2022-02-10 21:46:00 36.11 Gin Univ ersity of [facility] Respiratory rate 2022-02-10 21:46:00 18 /min Univ ersity [facility] Body height 2022-02-10 21:46:00 175.3 cm Universi ty of [facility] Body weight 2022-02-10 21:46:00 109.77 kg Universi ty of [place] [facility] BMI 2022-02-10 21:46:00 35[facility]74 [facility] Systolic blood 2021-06-30 14:10:00 116 mm[Hg] Univer sity of [facility] Diastolic blood 2021-06-30 14:10:00 66 mm[Hg] Unive rsity [facility] Heart rate 2021-06-30 14:10:00 96 /min [facility] Body temperature 2021-06-30 14:10:00 36.33 Gin [facility] Respiratory rate 2021-06-30 14:10:00 18 /min [facility] height 2021-06-30 14:10:00 175.3 cm [facility] Body weight 2021-06-30 14:10:00 112.129 kg [facility] BMI 2021-06-30 14:10:00 36.51 kg/m2 [facility] Procedures Procedure Date / Time Performing Clinician Source Performed POCT TEST 2022-02-17 15:48:00 Vani Montoya [facility] POCT TEST 2022-02-10 00:00:00 Simona Aparicio [facility] BCCS-RELATED 2022-01-19 05:01:00 Doctor Unassigned, No [facility] DOCUMENTATION Name [facility] BI ULTRASOUND BREAST 2021-09-22 18:30:10 Vani Montoya [facility] Encounters Start End Encounter Admission Attending Care Care Encounter Source Date/Time Date/Time Type Type Clinicians Facility Department ID 2021-02-02 Emergency [facility] [id number] Univers 06:13:19 ity [facility] 2021-01-30 Emergency [facility] [id number] Univers [facility]22-04-29 2022-04-29 Outpatient Dana MONTOYA [facility] [id number] Univers 13:00:00 13:00:00 VANI roberts [facility] 2022-03-04 2022-03-04 [id number] Univers 09:15:00 09:15:00 SIMONA [facility] 2022-03-04 2022-03-04 [facility]phone [facility] 1.2.840.114 [id number] [facility] 00:00:00 00:00:00 Vani Velásquez [facility] [id number] ity of REGIONAL [id number] [place] as MATERNAL [id number] Med ical & CHILD [address] [place] [address] 2022-02-17 2022-02-17 Outpatient Dana APARICIO [facility] [id number] Univers 10:00:00 10:08:43 SIMONA graf [facility] 2022-02-17 2022-02-17 Office [facility] .2.840.114 [id number] [facility] 10:00:00 10:08:43 Visit Simona Aparicio [facility] 350.1.13.1 0 ity of REGIONAL 4.2.7.2.686 [place] as MATERNAL [phone] Med ical & CHILD [address] [place] [address] 2022-02-11 2022-02-11 Case [facility] [id number] Univers 00:00:00 00:00:00 Management Simona Rivers [employer] [facility] [id number] ity of REGIONAL [id number] [place] as MATERNAL [id number] Med ical & CHILD [address] [place] [address] 2022-02-10 2022-02-10 [facility] [id number] Univers 15:30:00 16:18:34 SIMONA graf [facility] 2022-02-10 2022-02-10 Office Provider, Ismael [facility] 1 .[id number] [facility] 15:30:00 16:18:34 Visit Simona Aparicio [facility] 350.1.13.1 0 ity of REGIONAL [id number] [place] as MATERNAL [phone] Med ical & CHILD [address] [place] [address] 2022-01-19 2022-01-19 Orders Doctor MARIA G 1.2.840.114 [id number] Univers 00:00:00 00:00:00 Only Unassigned, JESUS 350.1.13.10 ity of [place] [facility] 4.2.7.2.686 [facility] [id number] [address] 2021-12-31 2021-12-31 Outpatient R UNKNOWN, [facility] [id number] Univers 09:40:00 09:40:00 ATTENDING ity of [facility] 2021-09-22 2021-09-22 Outpatient R AKINSIPE, [facility] [id number] Univers 12:17:01 23:59:00 VANI burky o [facility] 2021-09-22 2021-09-22 [facility] 1.2.840.114 [id number] Univers 12:17:01 23:59:00 Encounter Vani Velásquez SPECIALTY 350.1.13.10 ity of [facility] 4.2.7.2.686 [facility] AT [id number] [address] 2021-09-22 2021-09-22 Outpatient R AKINSIPE, [facility] [id number] Univers 00:00:00 00:00:00 VANI burky o [facility] 2021-06-30 2021-06-30 Outpatient R AKINSIPE, [facility] [id number] Univers 12:45:00 13:32:57 VANI burky o [facility] 2021-06-30 2021-06-30 Outpatient R AKINSIPE, [facility] [id number] Univers 12:45:00 12:45:00 VANI burky o [facility] 2021-06-30 2021-06-30 Outpatient R AKINSIPE, [facility] [id number] Univers 09:15:00 09:49:37 VANI burky o [facility] 2021-06-30 2021-06-30 [facility] [id number] Univers 09:15:00 09:49:37 Visit Vani Velásquez [facility] [employer] 350.1.13.10 ity of [facility] 4.2.7.2.686 [place] as MATERNAL [id number] [facility] [address] [place] [address] 2021-06-30 2021-06-30 Outpatient R AKINSIPE, [facility] [id number] Univers 09:15:00 09:49:37 VANI graf o f [facility] 2021-06-30 2021-06-30 Outpatient R AKINSIPE, [facility] [id number] Univers 09:15:00 09:49:37 VANI graf o f [facility] 2021-06-30 2021-06-30 Orders Doctor CUMMINS 1.2.840.114 [id number] Univers 00:00:00 00:00:00 Only Unassigned, JESUS 350.1.13.10 ity of [place] [facility] 4.2.7.2.686 Ty as [id number] [facility] [address] [place] 2021-06-02 2021-06-02 Case JAROCHO Teague 1.2.840.114 [id number] Univers 00:00:00 00:00:00 Management Rachana R EDWARDS 350.1.13.10 ity of [place] 4[place]7.2.686 [place] [id number] [facility] [address] [place] 2021-05-26 2021-05-26 Office [facility] [id number] Univers 10:15:00 10:54:44 Visit Vani Velásquez [facility] 350.1.13.10 ity of [facility] 4.2.7.2.686 [place] MATERNAL [id number] [facility] ical & CHILD [address] [place] [address] 2021-05-26 2021-05-26 Outpatient R AKINSIPE, [facility] [id number] Univers 10:15:00 10:54:44 VANI graf o f [facility] 2021-05-26 2021-05-26 Outpatient R AKINSIPE, [facility] [id number] Univers 10:15:00 10:15:00 VANI graf o [facility] 2021-05-26 2021-05-26 Orders Doctor MARIA G 1.2.840.114 [id number] Univers 00:00:00 00:00:00 Only Unassigned, JESUS 350.1.13.10 ity of [place] [facility] 4.2.7.2.686 Ty as [id number] [facility] 009 Branch 2021-05-21 2021-05-21 Outpatient R JAN [facility] [id number] Univers 10:00:00 10:00:00 VANI ity o f [facility] 2021-01-12 2021-01-12 Emergency Brodie, Sergio [facility] 1.2.840.114 [id number] Univers 15:00:00 17:49:00 [place] 350.1.13.10 i ty of [place] 4.2.7.2.686 [facility] [id number] [facility] 084 Branch 2020-07-10 2020-07-10 Outpatient R [facility] [id number] Univers 12:30:00 12:30:00 ity of [facility] 2020-06-23 2020-06-23 Patient [facility] 1.2.840.114 [id number] Univers 00:00:00 00:00:00 Outreach Tye PRIMARY 350.1.13.10 i ty of [facility] 4.2.7.2.686 [place] ULYSSESKAYLA [phone] [address] 2020-06-03 2020-06-03 Office Peggy [facility] 1.2.840.114 [id number] Univers 10:28:44 11:00:41 Visit Hellen Cortez [facility] 350.1.13.10 ity of [facility] 4.2.7.2.686 [place] MATERNAL [id number] Med ical & CHILD [address] [place] [address] 2020-06-03 2020-06-03 Outpatient R PEGGY [facility] [id number] Univers 10:45:00 10:45:00 HELLEN graf o alejandra [facility] 2020-06-03 2020-06-03 Outpatient R PEGGY [facility] [id number] Univers 10:45:00 10:45:00 HELLEN roberts [facility] 2020-04-15 2020-04-15 Outpatient Dana WOODS [facility] [id number] Univers 14:30:00 14:30:00 HELLEN roberts [facility] 2020-04-15 2020-04-15 Outpatient Dana WOODS [facility] [id number] Univers 14:30:00 14:30:00 HELLEN roberts [facility] 2020-04-14 2020-04-14 Outpatient Dana WOODS [facility] [id number] Univers 13:30:00 13:30:00 HELLEN roberts [facility] 2020-04-09 2020-04-09 Outpatient Dana WOODS [facility] [id number] Univers 13:30:00 13:30:00 HELLEN hair [facility] 2020-04-07 2020-04-07 [facility] [id number] Univers 13:45:00 13:45:00 AICHABRUCE graf [facility] 2020-04-05 2020-04-05 Emergency [facility] 1.2.840.114 [id number] 06:31:00 06:45:00 Rosalina Bruce 350.1.13.10 [place] 4.2.7.2.686 [place] [id number] [facility] 2020-04-05 2020-04-05 Emergency [facility] 1.2.840.114 [id number] Univers 06:31:00 06:45:00 Rosalina Bruce 350.1.13.10 ity [facility] 4.2.7.2.686 [facility] [id number] [place] [address] Branch 2020-03-16 2020-03-16 Office [facility] 1.2.840.114 [id number] 13:09:12 14:29:45 Visit Hellen Cortez DIRECT SU[facility] 350.1.13.10 [facility] 4.2.7.2.686 MATERNAL [id number] & CHILD [address] [place] [address] 2020-03-16 2020-03-16 Office [facility] 1.2.840.114 [id number] Univers 13:09:12 14:29:45 Visit Hellen Dana [employer] SU[employer] [facility] 350.1.13.10 ity of REGIONAL 4.2.7.2.686 [place] as MATERNAL [id number] [facility] [address] [place] [address] 2020-03-16 2020-03-16 Outpatient R PEGGY [facility] [id number] Univers 13:15:00 13:15:00 HELLEN ity o f [facility] 2020-03-16 2020-03-16 Orders Doctor MARIA G 1.2.840.114 [id number] Univers 00:00:00 00:00:00 Only Unassigned, JESUS 350.1.13.10 ity of [place] [facility] 4.2.7.2.686 Ty as [id number] [address] 2018-12-19 2018-12-19 Telephone [facility] 1.2.840.114 [id number] Univers 00:00:00 00:00:00 Aicha Quevedo [employer] [facility] 350.1.13.10 it y of REGIONAL 4.2.7.2.686 [place] as MATERNAL [id number] [facility] [address] [place] [address] 2018-12-11 2018-12-11 Orders Doctor MARIA G 1.2.840.114 [id number] Univers 00:00:00 00:00:00 Only Unassigned, JESUS 350.1.13.10 ity of [place] [facility] 4.2.7.2.686 [place] as [id number] [address] 2018-10-31 2018-10-31 Office [facility] [id number] Univers 15:40:31 15:57:46 Visit Aicha Quevedo [employer] [facility] 350.1.13.10 it y of [facility] 4.2.7.2.686 [place] as MATERNAL [id number] [facility] & CHILD [address] [place] [address] Results Test Description Test Time Test Comments Results Result Comments Source POCT TEST 2022-02-17 15:48:00 Test Item Value Reference Range Interpretation Comme nts POCT PREG (test code = 1605) Negative On board controls acceptable with C Line (test code = 3574) Yes POCT PREG LOT # (test code = 3575) POCT PREG TEST DATE (test code = 3576) [id number] 15:48:00 Test Item Value Reference Range Interpretation Comments POCT PREG (test code = 1605) Negative On board controls acceptable with C Yes Line (test code = 3574) POCT PREG LOT # (test code = 3575) POCT PREG TEST DATE (test code = 3576) [facility] [id number] 22:27:00 Test Item Value Reference Range Interpretation Comments POCT PREG (test code = 1605) Negative On board controls acceptable with C Yes Line (test code = 3574) POCT PREG LOT # (test code = 3575) POCT PREG TEST DATE (test code = 3576) [facility] [id number] 22:27:00 Test Item Value Reference Range Interpretation Comments POCT PREG (test code = 1605) Negative On board controls acceptable with C Yes Line (test code = 3574) POCT PREG LOT # (test code = 3575) POCT PREG TEST DATE (test code = 3576) [facility]
--- NOTE | 2022-04-19 09:26 | RAD REPORT ---
EXAM DESCRIPTION: US - Transvaginal OB - 04/19/2022 9:01 am CLINICAL HISTORY: with abdominal pain COMPARISON: April 17, 2022 FINDINGS: The uterus measures 8 x 4 x 5 centimeters. 4 millimeter sac is present within the endomet rium. pole not seen. A yolk sac not visualized Ovaries are normal in size and echotexture.. The right and left adnexa unremarkable No significant free fluid IMPRESSION: Development of a 4 millimeter sac within the endometrium since the prior exam. This prob ably represents a gestational sac associated with an intrauterine . Pseudo gestational sac a ssociated with an ectopic can also have a similar appearance. This should be correlated cli nically and with beta HCG levels. Follow up ultrasound in 1 week is recommended
--- NOTE | 2022-04-19 10:00 | EDPHYS ---
Physician Documentation [facility] Name: Marla Harmon Age: 21 yrs Sex: Female : 2000 Arrival Date: 04/19/2022 Time: 08:09 Bed 20 Private MD: ED Physician Jeronimo Isaac HPI: 04/19 08:36 This 21 yrs old Female presents to ER via Ambulatory with complaints of Abdominal rt Cramping. 08:36 Associated signs and symptoms: Pertinent positives: Cramping. Patient presents to the rt ED with pelvic cramping for the past 3 days. Patient had a positive test, was seen in the ED 2 days ago, had a beta-hCG of about 300, with a ultrasound that showed in the low live IUP. Patient was told to obtain 48-hour repeats. She states the cramping is still present, denies any vaginal bleeding. She states that she had cramping in the first trimester previously. Denies other acute complaints at this time, symptoms are moderate severity, no other aggravating alleviating factors.. 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 - Social history:: Smoking status: Reported history of juuling and/or vaping. ROS: 08:41 Constitutional: Negative for fever, chills, and weight loss, Eyes: Negative for injury, rt pain, redness, and discharge, Cardiovascular: Negative for chest pain, palpitations, and edema, Respiratory: Negative for shortness of breath, cough, wheezing, and pleuritic chest pain, Abdomen/GI: Negative for abdominal pain, nausea, vomiting, diarrhea, and constipation, Skin: Negative for injury, rash, and discoloration, Neuro: Negative for headache, weakness, numbness, tingling, and seizure, Psych: Negative for depression, anxiety, suicide ideation, homicidal ideation, and hallucinations. 08:41 : Positive for Pelvic cramping, Negative for vaginal bleeding. Exam: 08:41 Constitutional: This is a well developed, well nourished patient who is awake, alert, rt and in no acute distress. Head/Face: Normocephalic, atraumatic. Eyes: Pupils equal round and reactive to light, extra-ocular motions intact. Lids and lashes normal. Conjunctiva and sclera are non-icteric and not injected. Cornea within normal limits. Periorbital areas with no swelling, redness, or edema. ENT: Nares patent. No nasal discharge, no septal abnormalities noted. Tympanic membranes are normal and external auditory canals are clear. Oropharynx with no redness, swelling, or masses, exudates, or evidence of obstruction, uvula midline. Mucous membranes moist. Chest/axilla: Normal chest wall appearance and motion. Nontender with no deformity. No lesions are appreciated. Cardiovascular: Regular rate and rhythm with a normal S1 and S2. No gallops, murmurs, or rubs. Normal PMI, no JVD. No pulse deficits. Respiratory: Lungs have equal breath sounds bilaterally, clear to auscultation and percussion. No rales, rhonchi or wheezes noted. No increased work of breathing, no retractions or nasal flaring. Abdomen/GI: Soft, non-tender, with normal bowel sounds. No distension or tympany. No guarding or rebound. No evidence of tenderness throughout. Skin: Warm, dry with normal turgor. Normal color with no rashes, no lesions, and no evidence of cellulitis. MS/ Extremity: Pulses equal, no cyanosis. Neurovascular intact. Full, normal range of motion. Neuro: Awake and alert, GCS 15, oriented to person, place, time, and situation. Cranial nerves II-XII grossly intact. Motor strength 5/5 in all extremities. Sensory grossly intact. Cerebellar exam normal. Normal gait. Psych: Awake, alert, with orientation to person, place and time. Behavior, mood, and affect are within normal limits. Vital Signs: 08:17 BP 116 / 66; Pulse 81; Resp 17; Temp 98.1; Pulse Ox 100% on R/A; Weight 108.41 kg; jl7 Height 5 ft. 9 in. (175.26 cm); Pain 3/10; 08:17 Body Mass Index 35.29 (108.41 kg, 175.26 cm) jl7 MDM: 08:17 Patient medically screened. rt 10:00 Differential diagnosis: ectopic , normal . Data reviewed: vital rt signs, nurses notes, old medical records, lab test result(s), radiologic studies. Test considered but Not performed: Other Details Patient currently on antibiotics for UTI, repeat urinalysis not needed, patient is known Rh+, type and screen not needed.. Special discussion: Patient informed that ectopic not completely excluded, I will discussed radiologist recommendation for 1 week follow-up for repeat ultrasound. Patient to return sooner if she develops vaginal bleeding, worsening abdominal pain. 04/19 08:25 Order name: HCG-Quantitative; Complete Time: 09:19 rt 04/19 08:25 Order name: US OB Complete rt 04/19 08:28 Order name: Transvaginal OB; Complete Time: 09:53 EDMS Administered Medications: No medications were administered Disposition Summary: 04/19/22 10:00 Discharge Ordered Location: Home rt Problem: new rt Symptoms: are unchanged rt Condition: Stable rt Diagnosis - Other specified related conditions, first trimester rt Followup: rt - With: Private Physician - When: 1 week - Reason: repeat ultrasound Discharge Instructions: - Discharge Summary Sheet rt - Abdominal Pain During rt Forms: - Medication Reconciliation Form rt - Thank You Letter rt - Antibiotic Education rt - Prescription Opioid Use rt Signatures: Dispatcher [employer] Luis Lebron, RN RN jl7 Jeronimo Isaac MD MD rt
--- NOTE | 2022-04-19 10:00 | ER ---
Nurse's Notes [facility] Name: Marla Harmon Age: 21 yrs Sex: Female : 2000 Arrival Date: 04/19/2022 Time: 08:09 Bed 20 Private MD: Diagnosis: Other specified related conditions, first trimester Presentation: 04/19 08:17 Chief complaint: Patient states: Suprapubic cramping, positive UPT on Monday, seen jl7 here and was told to come back if unable to get an OB appointment within 48 hours. Coronavirus screen: Vaccine status: Patient reports being unvaccinated. At this time, the client does not indicate any symptoms associated with coronavirus-19. Ebola Screen: No symptoms or risks identified at this time. Initial Sepsis Screen: Does the patient meet any 2 criteria? No. Patient's initial sepsis screen is negative. Does the patient have a suspected source of infection? No. Patient's initial sepsis screen is negative. Risk Assessment: Do you want to hurt yourself or someone else? Patient reports no desire to harm self or others. Onset of symptoms is unknown. Care prior to arrival: None. 08:17 Method Of Arrival: Ambulatory [facility] 08:17 Acuity: NOLBERTO 3 jl7 Triage Assessment: 08:19 General: Appears in no apparent distress. uncomfortable, Behavior is calm, cooperative, jl7 appropriate for age. Pain: Complains of pain in suprapubic area Pain currently is 3 out of 10 on a pain scale. GI: Patient currently denies diarrhea, nausea, vomiting. 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 - Social history:: Smoking status: Reported history of juuling and/or vaping. Screenin:29 [facility] ED Fall Risk Assessment (Adult) History of falling in the last 3 months, bp including since admission No falls in past 3 months (0 pts). Abuse screen: Denies threats or abuse. Denies injuries from another. Nutritional screening: No deficits noted. Tuberculosis screening: No symptoms or risk factors identified. Assessment: 08:20 General: SEE TRIAGE NOTE. bp 10:29 Reassessment: PT DC HOME. bp Vital Signs: 08:17 BP 116 / 66; Pulse 81; Resp 17; Temp 98.1; Pulse Ox 100% on R/A; Weight 108.41 kg; jl7 Height 5 ft. 9 in. (175.26 cm); Pain 3/10; 08:17 Body Mass Index 35.29 (108.41 kg, 175.26 cm) jl7 ED Course: 08:09 Patient arrived in ED. as 08:15 Jeronimo Isaac MD is Attending Physician. rt 08:16 Cedrick Adames, RN is Primary Nurse. bp 08:19 Triage completed. jl7 08:19 Arm band placed on right wrist. jl7 08:46 Transvaginal OB In Process Unspecified. EDMS 10:29 Patient has correct armband on for positive identification. Bed in low position. Call bp light in reach. Side rails up X2. 10:29 No provider procedures requiring assistance completed. Patient did not have IV access bp during this emergency room visit. Administered Medications: No medications were administered Medication: 10:29 VIS not applicable for this client. bp Outcome: 10:00 Discharge ordered by . rt 10:29 Discharged to home ambulatory. bp 10:29 Condition: stable 10:29 Discharge instructions given to patient, Instructed on discharge instructions, follow up and referral plans. Demonstrated understanding of instructions, follow-up care. 10:30 Patient left the ED. bp Signatures: Dispatcher [employer] Brigitte Beckett Jahala, RN RN jl7 Cedrick Adames, RN RN bp Jeronimo Isaac MD MD rt
[2022-04-19 10:47] VITALS: BP 116/66; TEMP 98.1; O2SAT 100
== END 2022-04-19 10:30 | disposition home or self-care (01) ==
LOC: ER 08:07
DX: O26.891 Other specified pregnancy related conditions, first trimester (principal); Z3A.00 Weeks of gestation of pregnancy not specified
CPT/HCPCS: 36415; 76817; 84702

== ENCOUNTER 2022-05-29 23:09 | Emergency (ER) | payer OTHER ==
--- OUTSIDE RECORDS SUMMARY | 2022-05-29 23:14 | XMS REPORT | Continuity of Care Document ---
:2000 Author Organization [facility] t Address [address] [place] [address] Care Team Providers Name Role Phone Vani Johnson Primary Care Physician [phone] VANI MONTOYA Attending Clinician Unavailable Vani Johnson Attending Clinician [phone] Lab, Ismael Attending Clinician Unavailable Doctor Unassigned, [place] Attending Clinician Unavailable SIMONA APARICIO Attending Clinician Unavailable ProviderIsmael Temp Attending Clinician Unavailable Simona Aparicio CNM Attending Clinician UNKNOWN, ATTENDING Attending Clinician Unavailable Rachana Teague LMSW Attending Clinician Unavailable Sergio Gastelum Attending Clinician Tye Travis DO Attending Clinician Hellen Moran Attending Clinician HELLEN WOODS Attending Clinician Unavailable AICHA AC Attending Clinician Unavailable Rosalina Ac DO Attending Clinician Aicha Ramachandran Attending Clinician Payers Payer Name Policy Type Policy Number Effective Date Expiration Date S ource [place]ID [place] [id number] 2022 00:00:00 [facility] [id number] 2018 00:00:00 MEDICAID PENDING PENDING 2020 00:00:00 Problems Condition Condition Condition Status Onset Resolution Last Treating Co mments Source Name Details Category Date Date Treatment Clinician Date Trichomona Trichomona Disease Active Overview : Univers l l 2-07 Formattin ity of vaginitis vaginitis 00:00: [place] of [place] during during 00 note Medical might be Br anch different from the original. Pending savage UTI in UTI in Disease Active Overview: Univer s 1-30 Formattin i ty of 00:00: g of this [place] note Medical might be Branch different from the original. Pending savage Supervisio Supervisio Disease Active U nivers n of n of 1-25 ity of high-risk high[place] [facility] Branch Multiparit Multiparit Disease Active U nivers y y 1-25 ity of 00:00: [place] 00 Medical Branch History of History of Disease Active U nivers gestationa gestationa 1-25 it y of l l 00:00: [place] hypertensi hypertensi 00 Me dical on on Branch Other Other Disease Active Univers general general [...] Breakthrou Disease Active U nivers gh gh 5- ity of bleeding bleeding 00:00: [place] on on 00 Medical Nexplanon Nexplanon Bran ch Chlamydia Chlamydia Disease Active Overview: Univers trachomati trachomati 08-29 Formattin ity of s s 00:00: g of this [place] infection infection 00 note Medi alysha of lower of lower might be Bran ch genitourin genitourin different kaycee sites kaycee sites from the original. SAVAGE neg Nexplanon Nexplanon Disease Active Uni vers removal removal -18 ity of 00:00: [address] Obesity Obesity Disease Active Univers (BMI (BMI 4-02 ity of 30-39.9) 30-39.9) 00:00: [address] Obesity in Obesity in Disease Active U nivers - ity of 00:: [address] Screen for Screen for Disease Active U nivers STD STD -02 ity of (sexually (sexually [place] transmitte transmitte 00 Me dical d disease) d disease) Br anch Allergies, Adverse Reactions, Alerts Allergy Allergy Status Severity Reaction(s) Onset Inactive Treating Comm ents Source Name Type Date Date Clinician NO KNOWN Drug Active Univers ALLERGIE Class ity of S [facility] Social History Social Habit Start Date Stop Date Quantity Comments Source ASSERTION 2022-04-09 University 00:00:00 [facility] Exposure to 2022-05-15 2022-05-25 Not sure [facility] SARS-CoV-2 (event) 00:00:00 09:31:00 [facility] Alcohol intake 2022-05-25 2022-05-25 Current drinker Unive rsity of 00:00:00 00:00:00 of alcohol [facility] (finding) [place] Cigarettes smoked 2022-04-27 2022-04-27 Univers ity of current (pack per 00:00:00 00:00:00 [facility] ed) - Reported Branch Tobacco use and 2022-04-27 2022-04-27 Smokeless Universit y of exposure 00:00:00 00:00:00 tobacco non-user [facility] [place] dical [place] Alcohol Comment 2022-04-27 2022-04-27 quit 04/16/2022 Unive rsity of 00:00:00 00:00:00 [facility] History of tobacco 2016-07-03 2022-04-16 Cigarette Smoker University of use 00:00:00 00:00:00 [facility] Branch History SDMD 2020-03-16 2020-03-16 3 University o f Alcohol Frequency 00:00:00 00:00:00 [facility] edical Branch History [facility] 2020-03-16 2020-03-16 99 University o f Alcohol Std Drinks 00:00:00 00:00:00 [facility] History [facility] 2020-03-16 2020-03-16 99 [place] o f Alcohol Binge 00:00:00 00:00:00 [facility] Branch Sex Assigned At [birth year] Universit y of 00:00:00 00:00:00 [facility] Smoking Status Start Date Stop Date Source Ex-smoker 2022-04-27 00:00:00 2022-04-27 [facility]:00[facility] Smokes tobacco daily 2022-02-17 00:00:00 [facility] Ordered Filled Start Stop Current Ordering Indication Dosage Frequency Signature Comments Components Source Medication Medication Date Date Medication? Clinician (SIG) Name Name metroNIDAZO 2022- Yes [id number] 2000mg Take 4 Univers LE 500 mg 05-10- tablets by ity of tablet 00:00: 05:59 [place] :[place] now for 1 Medical dose. Branch metroNIDAZO 2022- Yes [id number] 2000mg Take 4 Univers LE 500 mg 2-08 tablets by ity of tablet 00:00: 05:59 [place] :[place] now for 1 Medical dose. Branch metroNIDAZO 2022- Yes [id number] 2000mg Take 4 Univers LE 500 mg 2-08 tablets by ity of tablet 00:00: 05:59 [place] :[place] now for 1 Medical dose. Branch ampicillin 2022- Yes [id number] 500mg Take 1 Univers 500 mg 1-30 02-10 capsule by ity of capsule 00:00: 05:59 mouth 4 [place] 00 :00 (four) Medical times Branch daily for 10 days. ampicillin 2022- Yes [id number] 500mg Take 1 Univers 500 mg 1-30 02-10 capsule by ity of capsule 00:00: 05:59 mouth 4 [place] 00 :00 (four) Medical times Branch daily for 10 days. ampicillin 2022- Yes [id number] 500mg Take 1 Univers 500 mg 1-30 02-10 capsule by ity of capsule 00:00: 05:59 mouth 4 [place] 00 :00 (four) Medical times Branch daily for 10 days. ampicillin 2022- Yes [id number] 500mg Take 1 Univers 500 mg 1-30 02-10 capsule by ity of capsule 00:00: 05:59 mouth 4 [place] 00 :00 (four) Medical times Branch daily for 10 days. ampicillin 2022- Yes [id number] 500mg Take 1 Univers 500 mg 1-30 02-10 capsule by ity of capsule 00:00: 05:59 mouth 4 [place] 00 :00 (four) Medical times Branch daily for 10 days. ampicillin 2022- Yes [id number] 500mg Take 1 Univers 500 mg 1-30 02-10 capsule by ity of capsule 00:00: 05:59 mouth 4 [place] 00 :00 (four) Medical times Branch daily for 10 days. Yes [id number] 1{tbl} Take 1 U nivers multivitami 1-25 tablet by ity of n ( 00:00: mouth in [place] VITAMIN[place] 00 the Medical tablet morning. Branch proMETHazin Yes [id number] 25mg Take 1 Univers e 25 mg 1-25 tablet by ity of tablet 00:00: mouth [place] 00 every 6 Medical (six) Branch hours as needed for Nausea and Vomiting (N/V). proMETHazin 0 Yes [id number] 25mg Take 1 Univers e 25 mg 1-25 tablet by ity of tablet 00:00: mouth [place] 00 every 6 Medical (six) Branch hours as needed for Nausea and Vomiting (N/V). 2022-0 Yes [id number] 1{tbl} Take 1 U nivers multivitami 1-25 tablet by ity of n ( 00:00: [place] VITAMIN[place] 00 the Medical tablet morning. Branch proMETHazin 0 Yes [id number] 25mg Take 1 Univers e 25 mg 1-25 tablet by ity of tablet 00:00: mouth [place] 00 every 6 Medical (six) Branch hours as needed for Nausea and Vomiting (N/V). 2022-0 Yes [id number] 1{tbl} Take 1 U nivers multivitami 1-25 tablet by ity of n ( 00:00: [place] VITAMIN[place] 00 the Medical tablet morning. Branch proMETHazin 0 Yes [id number] 25mg Take 1 Univers e 25 mg 1-25 tablet by ity of tablet 00:00: mouth [place] 00 every 6 Medical (six) Branch hours as needed for Nausea and Vomiting (N/V). 2022-0 Yes [id number] 1{tbl} Take 1 U nivers multivitami 1-25 tablet by ity of n ( 00:00: mouth [place] VITAMIN) 00 the Medical tablet morning. Branch proMETHazin 0 Yes [id number] 25mg Take 1 Univers e 25 mg 1-25 tablet by ity of tablet 00:00: mouth [place] 00 every 6 Medical (six) Branch hours as needed for Nausea and Vomiting (N/V). 2022-0 Yes [id number] 1{tbl} Take 1 U nivers multivitami 1-25 tablet by ity of n ( 00:00: [place] VITAMIN) 00 the Medical tablet morning. Branch proMETHazin 2022-0 Yes [id number] 25mg Take 1 Univers e 25 mg 1-25 tablet by ity of tablet 00:00: mouth [place] 00 every 6 Medical (six) Branch hours as needed for Nausea and Vomiting (N/V). 2022-0 Yes [id number] 1{tbl} Take 1 U nivers multivitami 1-25 tablet by ity of n ( 00:00: mouth [place] VITAMIN) 00 the Medical tablet morning. Branch proMETHazin 2022-0 Yes [id number] 25mg Take 1 Univers e 25 mg 1-25 tablet by ity of tablet 00:00: mouth [place] 00 every 6 Medical (six) Branch hours as needed for Nausea and Vomiting (N/V). 2022-0 Yes [id number] 1{tbl} Take 1 U nivers multivitami 1-25 tablet by ity of n ( 00:00: mouth [place] VITAMIN) 00 the Medical tablet morning. Branch proMETHazin 0 Yes [id number] 25mg Take 1 Univers e 25 mg 1-25 tablet by ity of tablet 00:00: mouth [place] 00 every 6 Medical (six) Branch hours as needed for Nausea and Vomiting (N/V). 2022-0 Yes [id number] 1{tbl} Take 1 U nivers multivitami 1-25 tablet by ity of n ( 00:00: mouth [place] VITAMIN) 00 the Medical tablet morning. Branch proMETHazin 0 Yes [id number] 25mg Take 1 Univers e 25 mg 1-25 tablet by ity of tablet 00:00: mouth [place] 00 every 6 Medical (six) Branch hours as needed for Nausea and Vomiting (N/V). 2022-0 Yes [id number] 1{tbl} Take 1 U nivers multivitami 1-25 tablet by ity of n ( 00:00: mouth [place] VITAMIN) 00 the Medical tablet morning. Branch proMETHazin 0 Yes [id number] 25mg Take 1 Univers e 25 mg 1-25 tablet by ity of tablet 00:00: mouth [place] 00 every 6 Medical (six) Branch hours as needed for Nausea and Vomiting (N/V). 2022-0 Yes [id number] 1{tbl} Take 1 U nivers multivitami 1-25 tablet by ity of n ( 00:00: mouth [place] VITAMIN) 00 the Medical tablet morning. Branch proMETHazin 0 Yes [id number] 25mg Take 1 Univers e 25 mg 1-25 tablet by ity of tablet 00:00: mouth [place] 00 every 6 Medical (six) Branch hours as needed for Nausea and Vomiting (N/V). 2022-0 Yes [id number] 1{tbl} Take 1 U nivers multivitami 1-25 tablet by ity of n ( 00:00: mouth [place] VITAMIN) 00 the Medical tablet morning. Branch proMETHazin Yes [id number] 25mg Take 1 Univers e 25 mg 1-25 tablet by ity of tablet 00:00: mouth [place] 00 every 6 Medical (six) Branch hours as needed for Nausea and Vomiting (N/V). Yes [id number] 1{tbl} Take 1 U nivers multivitami 1-25 tablet by ity of n ( 00:00: [place] VITAMIN) 00 the Medical tablet morning. Branch 2022- No [id number] 1{tbl} Take 1 Univers multivitami 1-25 01-25 tablet by it y of n ( 00:00: 00:00 [place] VITAMIN[place] 00 :00 the Medical tablet morning. Branch Nitrofurant Yes TAKE 1 Univ ers oin&Nit. 1-15 CAPSULE BY ity o f Macrocryst 00:00: MOUTH [place] 100 mg 00 EVERY 12 Medical capsule HOURS FOR Branch 7 DAYS Nitrofurant Yes TAKE 1 Univ ers oin&Nit. 1-15 CAPSULE BY ity o f Macrocryst 00:00: MOUTH [place] 100 mg 00 EVERY 12 Medical capsule HOURS FOR Branch 7 DAYS Nitrofurant 2022-0 Yes TAKE 1 Univ ers oin&Nit. 1-15 CAPSULE BY ity o f Macrocryst 00:00: MOUTH [place] 100 mg 00 EVERY 12 Medical capsule HOURS FOR Branch 7 DAYS Nitrofurant 0 Yes TAKE 1 Univ ers oin&Nit. 1-15 CAPSULE BY ity o f Macrocryst 00:00: MOUTH [place] 100 mg 00 EVERY 12 Medical capsule HOURS FOR Branch 7 DAYS Nitrofurant 2022-0 Yes TAKE 1 Univ ers oin&Nit. 1-15 CAPSULE BY ity o f Macrocryst 00:00: MOUTH [place] 100 mg 00 EVERY 12 Medical capsule HOURS FOR Branch 7 DAYS Nitrofurant 2022-0 Yes TAKE 1 Univ ers oin&Nit. 1-15 CAPSULE BY ity o f Macrocryst 00:00: MOUTH [place] 100 mg 00 EVERY 12 Medical capsule HOURS FOR Branch 7 DAYS Nitrofurant 2022-0 Yes TAKE 1 Univ ers oin&Nit. 1-15 CAPSULE BY ity o f Macrocryst 00:00: MOUTH [place] 100 mg 00 EVERY 12 Medical capsule HOURS FOR Branch 7 DAYS Nitrofurant 2022-0 Yes TAKE 1 Univ ers oin&Nit. 1-15 CAPSULE BY ity o f Macrocryst 00:00: MOUTH [place] 100 mg 00 EVERY 12 Medical capsule HOURS FOR Branch 7 DAYS Nitrofurant 2022-0 Yes TAKE 1 Univ ers oin&Nit. 1-15 CAPSULE BY ity o f Macrocryst 00:00: MOUTH [place] 100 mg 00 EVERY 12 Medical capsule HOURS FOR Branch 7 DAYS Nitrofurant 2022-0 Yes TAKE 1 Univ ers oin&Nit. 1-15 CAPSULE BY ity o f Macrocryst 00:00: MOUTH [place] 100 mg 00 EVERY 12 Medical capsule HOURS FOR Branch 7 DAYS Nitrofurant 2022-0 Yes TAKE 1 Univ ers oin&Nit. 1-15 CAPSULE BY ity o f Macrocryst 00:00: MOUTH [place] 100 mg 00 EVERY 12 Medical capsule HOURS FOR Branch 7 DAYS Nitrofurant 2022-0 Yes TAKE 1 Univ ers oin&Nit. 1-15 CAPSULE BY ity o f Macrocryst 00:00: MOUTH [place] 100 mg 00 EVERY 12 Medical capsule HOURS FOR Branch 7 DAYS No known 2021-04 No No known Unive rs medications 1-17 medication it y of 10:28: s [place] 59 Medical Branch doxycycline 2021-04- No [id number] 100mg Take 1 Univers hyclate 100 04-13-19 capsule by i ty of mg capsule 00:00: 05:59 mouth [place] 00 :00 every 12 Medical (twelve) Branch hours for 7 days. doxycycline 2021-04- No [id number] 100mg Take 1 Univers hyclate 100 04-13-19 capsule by i ty of mg capsule 00:00: 05:59 mouth [place] 00 :00 every 12 Medical (twelve) Branch hours for 7 days. doxycycline 2021-04- No [id number] 100mg Take 1 Univers hyclate 100 04-13-19 capsule by i ty of mg capsule 00:00: 05:59 mouth [place] 00 :00 every 12 Medical (twelve) Branch hours for 7 days. azithromyci 2021-04- No [id number] 1000mg Take 2 Univers n 1-10 11-11 04 tablets by ity of (ZITHROMAX) 00:00: 05:59 mouth once [place] 500 mg 00 :00 now for 1 Medical tablet dose. Branch azithromyci 2021-04- No [id number] 1000mg Take 2 Univers n 1-10 11-11 04 tablets by ity of (ZITHROMAX) 00:00: 05:59 mouth once [place] 500 mg 00 :00 now for 1 Medical tablet dose. Branch No known No Univers medications 3-31 ity of 16:12: [address] No known No Univers medications 3-31 ity of 16:12: [address] No known No No known Unive rs medications 3-31 medication it y of 16:12: s [address] Immunizations Ordered Filled Immunization Date Status Comments Sour e Immunization Name Name [facility] 2021-05-26 Completed University of 00:00:00 [facility] 2021-05-26 Completed University of 00:00:00 [facility] 2021-05-26 Completed University of 00:00:00 [facility] 2021-05-26 Completed University of 00:00:00 [facility] 2021-05-26 Completed University of 00:00:00 [facility] 2021-05-26 Completed University of 00:00:00 [facility] 2021-05-26 Completed University of 00:00:00 [facility] 2021-05-26 Completed University of 00:00:00 [facility] 2021-05-26 Completed University of 00:00:00 [facility] 2021-05-26 Completed University of 00:00:00 [facility] 2021-05-26 Completed University of 00:00:00 [facility] HPV9 2021-05-26 Completed University of 00:00:00 [facility] HPV9 2021-05-26 Completed University of 00:00:00 [facility] 2021-05-26 Completed University of 00:00:00 [facility] 2021-05-26 Completed University of 00:00:00 [facility] 2021-05-26 Completed University of 00:00:00 [facility] 2021-05-26 Completed University of 00:00:00 [facility] 2021-05-26 Completed University of 00:00:00 [place] [facility] HPV9 2021-05-26 Completed University of 00:00:00 [place] [facility] HPV9 2021-05-26 Completed University of 00:00:00 [place] [facility] HPV9 2021-05-26 Completed University of 00:00:00 [place] [facility] [place] Influenza Virus 2020-03-16 Completed Universit y of [...] y of Vaccine Quad .5 mL 00:00:00 [place] [facility] 6+ MO Branch HPV9 2018-09-07 Completed University of 00:00:00 [place] [facility] HPV9 2018-09-07 Completed University of 00:00:00 [place] [facility] HPV9 2018-09-07 Completed University of 00:00:00 [place] [facility] HPV9 2018-09-07 Completed University of 00:00:00 [place] [facility] HPV9 2018-09-07 Completed University of 00:00:00 [place] [facility] HPV9 2018-09-07 Completed University of 00:00:00 [place] [facility] HPV9 2018-09-07 Completed University of 00:00:00 [place] [facility] HPV9 2018-09-07 Completed University of 00:00:00 [place] [facility] HPV9 2018-09-07 Completed University of 00:00:00 [place] [facility] HPV9 2018-09-07 Completed University of 00:00:00 [place] [facility] HPV9 2018-09-07 Completed University of 00:00:00 [place] [facility] HPV9 2018-09-07 Completed University of 00:00:00 [place] [facility] HPV9 2018-09-07 Completed University of 00:00:00 [place] [facility] HPV9 2018-09-07 Completed University of 00:00:00 [place] [facility] HPV9 2018-09-07 Completed University of 00:00:00 [place] [facility] HPV9 2018-09-07 Completed University of 00:00:00 [place] [facility] HPV9 2018-09-07 Completed University of 00:00:00 [place] [facility] HPV9 2018-09-07 Completed University of 00:00:00 [place] [facility] HPV9 2018-09-07 Completed University of 00:00:00 [place] [facility] HPV9 2018-09-07 Completed University of 00:00:00 [place] [facility] HPV9 2018-09-07 Completed University of 00:00:00 [place] [facility] HPV9 2018-07-03 Completed University of 00:00:00 [place] [facility] HPV9 2018-07-03 Completed University of 00:00:00 [place] [facility] HPV9 2018-07-03 Completed University of 00:00:00 [place] [facility] HPV9 2018-07-03 Completed University of 00:00:00 [place] [facility] HPV9 2018-07-03 Completed University of 00:00:00 [facility] HPV9 2018-07-03 Completed University of 00:00:00 [place] [facility] HPV9 2018-07-03 Completed University of 00:00:00 [facility] Branch HPV9 2018-07-03 Completed University of 00:00:00 [facility] Branch HPV9 2018-07-03 Completed University of 00:00:00 [facility] Branch HPV9 2018-07-03 Completed University of 00:00:00 [facility] Branch HPV9 2018-07-03 Completed University of 00:00:00 [facility] Branch HPV9 2018-07-03 Completed University of 00:00:00 [facility] Branch HPV9 2018-07-03 Completed University of 00:00:00 [facility] Branch HPV9 2018-07-03 Completed University of 00:00:00 [facility] Branch HPV9 2018-07-03 Completed University of 00:00:00 [facility] Branch HPV9 2018-07-03 Completed University of 00:00:00 [facility] Branch HPV9 2018-07-03 Completed University of 00:00:00 [facility] Branch HPV9 2018-07-03 Completed University of 00:00:00 [facility] Branch HPV9 2018-07-03 Completed University of 00:00:00 [facility] Branch HPV9 2018-07-03 Completed University of 00:00:00 [facility] HPV9 2018-07-03 Completed University of 00:00:00 [facility] Vital Signs Vital Name Observation Time Observation Value Comments Source Systolic blood 2022-05-25 15:32:00 119 mm[Hg] Univer sity of pressure [facility] Diastolic blood 2022-05-25 15:32:00 69 mm[Hg] Unive rsity of pressure [facility] Heart rate 2022-05-25 15:32:00 81 /min Universi ty of [place] [facility] Body temperature 2022-05-25 15:32:00 36.28 Gin Univ ersity of [place] [facility] Respiratory rate 2022-05-25 15:32:00 18 /min Univ ersity of [place] [facility] Body height 2022-05-25 15:32:00 175.3 cm Universi ty of [place] [facility] Body weight 2022-05-25 15:32:00 111.721 kg Universi ty of [place] [facility] BMI 2022-05-25 15:32:00 36.37 kg/m2 Universi ty of [place] [facility] Systolic blood 2022-04-27 15:52:00 136 mm[Hg] Univer sity of pressure [place] [facility] Diastolic blood 2022-04-27 15:52:00 79 mm[Hg] Unive rsity of pressure [place] [facility] Heart rate 2022-04-27 15:52:00 98 /min Universi ty of [place] [facility] Body temperature 2022-04-27 15:52:00 36.28 Gin Univ ersity of [place] [facility] Respiratory rate 2022-04-27 15:52:00 18 /min Univ ersity of [place] [facility] Body height 2022-04-27 15:52:00 175.3 cm Universi ty of [place] [facility] Body weight 2022-04-27 15:52:00 109.856 kg Universi ty of [place] [facility] BMI 2022-04-27 15:52:00 35.76 kg/m2 Universi ty of [place] [facility] Systolic blood 2022-02-17 15:46:00 131 mm[Hg] Univer sity of pressure [place] [facility] Diastolic blood 2022-02-17 15:46:00 80 mm[Hg] Unive rsity of pressure [place] [facility] Heart rate 2022-02-17 15:46:00 104 /min Universi ty of [place] [facility] Body temperature 2022-02-17 15:46:00 36.94 Gin Univ ersity of [place] [facility] Respiratory rate 2022-02-17 15:46:00 18 /min Univ ersity of [place] [facility] Body weight 2022-02-17 15:46:00 108.455 kg Universi ty of [place] [facility] BMI 2022-02-17 15:46:00 35.31 kg/m2 Universi ty of [place] [facility] Systolic blood 2022-02-10 21:46:00 121 mm[Hg] Univer sity of pressure [place] [facility] Diastolic blood 2022-02-10 21:46:00 69 mm[Hg] Unive rsity of pressure [place] [facility] Heart rate 2022-02-10 21:46:00 92 /min Universi ty of [place] [facility] [place] Body temperature 2022-02-10 21:46:00 36.11 Gin Univ ersity of [facility] Respiratory rate 2022-02-10 21:46:00 18 /min Univ ersity of [place] [facility] [place] Body height 2022-02-10 21:46:00 175.3 cm Universi ty of [place] [facility] [place] Body weight 2022-02-10 21:46:00 109.77 kg Universi ty of [place] [facility] [place] BMI 2022-02-10 21:46:00 35.74 kg/m2 Universi ty of [place] [facility] Systolic blood 2021-06-30 14:10:00 116 mm[Hg] Univer sity of pressure [place] [facility] [place] Diastolic blood 2021-06-30 14:10:00 66 mm[Hg] Unive rsity of pressure [place] [facility] Heart rate 2021-06-30 14:10:00 96 /min Universi ty of [place] [facility] [place] Body temperature 2021-06-30 14:10:00 36.33 Gin Univ ersity of [place] [facility] [place] Respiratory rate 2021-06-30 14:10:00 18 /min Univ ersity of [place] [facility] [place] Body height 2021-06-30 14:10:00 175.3 cm Universi ty of [place] [facility] [place] Body weight 2021-06-30 14:10:00 112.129 kg Universi ty of [place] [facility] BMI 2021-06-30 14:10:00 36.51 kg/m2 Universi ty [facility] Procedures Procedure Date / Time Performing Clinician Source Performed POCT URINALYSIS 2022-05-25 15:34:00 Vani Montoya [facility] GC & CHLAMYDIA AMPLIFIED 2022-05-09 20:54:00 Vani Montoya [facility] TRICHOMONAS AMPLIFIED 2022-05-09 20:54:00 Vani Montoya [facility] POCT URINALYSIS W/O 2022-04-27 15:45:00 Vani Montoya Uni versity of [place] SPECIFIC GRAVITY [facility] POCT TEST 2022-04-27 15:44:00 Vani Montoya Uni versity of [facility] REPORT OF 2022-04-27 06:01:00 Doctor Unassigned, No Un iversity of [facility] POCT TEST 2022-02-17 15:48:00 Vani Montoya Uni versity of [facility] POCT TEST 2022-02-10 00:00:00 Simona Aparicio Univ ersity of [facility] BCCS-RELATED 2022-01-19 05:01:00 Doctor Unassigned, No Univer sity of [facility] Name [facility] BI ULTRASOUND BREAST 2021-09-22 18:30:10 Vani Montoya Un iversity of [facility] Encounters Start End Encounter Admission Attending Care Care Encounter Source Date/Time Date/Time Type Type Clinicians Facility Department ID 2021-02-02 Emergency [facility] [id number] Univers 06:13:19 ity of [facility] 2021-01-30 Emergency [facility] [id number] Univers 14:34:27 ity of [facility] 2022-06-23 2022-06-23 Outpatient P [facility] [id number] Univers 09:15:00 09:15:00 ity of [facility] 2022-06-22 2022-06-22 Outpatient R AKINTITO, [facility] [id number] Univers 09:45:00 09:45:00 VANI ity o f [facility] 2022-05-25 2022-05-25 Outpatient R AKINTITO, [facility] [id number] Univers 09:45:00 09:59:33 VANI ity o f [facility] 2022-05-25 2022-05-25 Routine Jan, [facility] [id number] Univers 09:45:00 09:59:33 Vani Velásuqez LOG WASHER 350.1.13.10 ity of Visit REGIONAL 4.2.7.2.686 [place] MATERNAL [phone] Med ical & CHILD [address] [place] [address] 2022-05-10 2022-05-10 Telephone Jan [facility] 1.2.840.114 [id number] Univers 00:00:00 00:00:00 Vani C LOG WASHER 350.1.13.10 ity of REGIONAL 4.2.7.2.686 [place] as MATERNAL [id number] [facility] [address] [place] [address] 2022-05-09 2022-05-09 Biologist Aide Lab, [facility] 1.2.840. 114 [id number] Univers 13:15:00 13:23:32 Visit Vani Montoya LOG WASHER 350.1.13. 10 ity of REGIONAL 4.2.7.2.686 [place] as MATERNAL [phone] [facility] & CHILD [address] [place] [address] 2022-05-09 2022-05-09 Outpatient R JAN [facility] [id number] Univers 13:15:00 13:15:00 VANI hair [facility] 2022-05-05 2022-05-05 Outpatient R JAN [facility] [id number] Univers 12:45:00 12:45:00 VANI graf o f [facility] 2022-05-04 2022-05-04 Telephone [facility] 1.2.840.114 [id number] Univers 00:00:00 00:00:00 Vani C LOG WASHER 350.1.13.10 ity of [facility] 4.2.7.2.686 [place] as MATERNAL [phone] [facility] [address] [place] [address] 2022-05-02 2022-05-02 Telephone [facility] 1.2.840.114 [id number] Univers 00:00:00 00:00:00 Vani C LOG WASHER 350.1.13.10 ity of REGIONAL 4.2.7.2.686 [place] as MATERNAL [phone] [facility] [address] [place] [address] 2022-04-29 2022-04-29 Outpatient R JAN [facility] [id number] Univers 13:00:00 13:00:00 VANI ity o f [facility] 2022-04-27 2022-04-27 Outpatient R JAN [facility] [id number] Univers 10:00:00 10:53:17 VANI ity o f [facility] 2022-04-27 2022-04-27 Initial [facility] 1.2.474.877 [id number] Univers 10:00:00 10:53:17 Vani C LOG WASHER 350.1.13.10 ity of Visit REGIONAL 4.2.7.2.686 [place] as MATERNAL [phone] [facility] ical & CHILD [address] [place] [address] 2022-04-27 2022-04-27 Telephone [facility] 1.2.840.114 [id number] Univers 00:00:00 00:00:00 Vani C LOG WASHER 350.1.13.10 ity of [place]IONAL 4.2.7.2.686 [place] as MATERNAL [phone] [facility] ical & CHILD [address] [place] [address] 2022-04-27 2022-04-27 Orders Doctor MARIA G 1.2.840.114 [id number] Univers 00:00:00 00:00:00 Only Unassigned, JESUS 350.1.13.10 ity of [place] [facility] 4.2.7.2.686 Ty as [id number] [address] 2022-03-04 2022-03-04 Outpatient Dana APARICIO [facility] [id number] Univers 09:15:00 09:15:00 SIMONA itdiane of [facility] 2022-03-04 2022-03-04 Telephone [facility] 1.2.840.114 [id number] Univers 00:00:00 00:00:00 Vain C LOG WASHER 350.1.13.10 ity of REGIONAL 4.2.7.2.686 [place] as MATERNAL [id number] [facility] & CHILD [address] [place] [address] 2022-02-17 2022-02-17 Outpatient Dana APARICIO [facility] [id number] Univers 10:00:00 10:08:[address] [facility] 2022-02-17 2022-02-17 Office Provider, Ismael Hastings [facility] 1 .2.840.114 [id number] Univers 10:00:00 10:08:43 Visit VidalMaya piercendvalentin Rivers LOG WASHER 350.1.13.1 0 ity of REGIONAL 4.2.7.2.686 [place] as MATERNAL [id number] [facility] ical & CHILD [address] [place] [address] 2022-02-11 2022-02-11 Case [facility] 1.2.840.114 [id number] Univers 00:00:00 00:00:00 Management Simona Rivers LOG WASHER 350.1.13.10 ity of [facility] 4.2.7.2.686 Ty as MATERNAL [id number] [facility] & CHILD [address] [place] [address] 2022-02-10 2022-02-10 Out[facility] [id number] Univers 15:30:00 16:18:[facility] 2022-02-10 2022-02-10 Office Provider, Ismael Hastings [facility] 1 .2.840.114 [id number] Univers 15:30:00 16:18:34 Visit Simona Aparicio Valentin LOG WASHER 350.1.13.1 0 ity of [facility] 4.2.7.2.686 Ty as MATERNAL [id number] [facility] & CHILD [address] [place] [address] 2022-01-19 2022-01-19 Orders Doctor CUMMINS 1.2.840.114 [id number] Univers 00:00:00 00:00:00 Only Unassigned, JESUS 350.1.13.10 ity of [place] [facility] 4.2.7.2.686 Ty as [id number] [address] 2021-12-31 2021-12-31 Outpatient R MALCOLM [facility] [id number] Univers 09:40:00 09:40:[address] [facility] 2021-09-22 2021-09-22 Outpatient [facility] [id number] Univers 12:17:01 23:59:00 VANI graf o [facility] 2021-09-22 2021-09-22 [facility] 1.2.840.114 [id number] Univers 12:17:01 23:59:00 Encounter Vani Velásquez SPECIALTY 350.1.13.10 ity of [facility] 4.2.7.2.686 [facility] AT [id number] [address] 2021-09-22 2021-09-22 Outpatient R JAN, [facility] [id number] Univers 00:00:00 00:00:00 VANI graf o [facility] 2021-06-30 2021-06-30 Outpatient R JAN, [facility] [id number] Univers 12:45:00 13:32:57 VANI ity o [facility] 2021-06-30 2021-06-30 Outpatient R JAN, [facility] [id number] Univers 12:45:00 12:45:00 VANI ity o [facility] 2021-06-30 2021-06-30 Outpatient R JAN, [facility] [id number] Univers 09:15:00 09:49:37 VANI graf o [facility] 2021-06-30 2021-06-30 [facility] [id number] Univers 09:15:00 09:49:37 Visit Vani Velásquez LOG WASHER 350.1.13.10 ity of REGIONAL 4.2.7.2.686 [place] as MATERNAL [id number] [facility] ical & CHILD [address] [place] [address] 2021-06-30 2021-06-30 Outpatient R JAN, [facility] [id number] Univers 09:15:00 09:49:37 VANI ity o [facility] 2021-06-30 2021-06-30 Outpatient R JAN, [facility] [id number] Univers 09:15:00 09:49:37 VANI bhargavidiane o [facility] 2021-06-30 2021-06-30 Orders Doctor MARIA G 1.2.840.114 [id number] Univers 00:00:00 00:00:00 Only Unassigned, JESUS 350.1.13.10 ity of [place] [facility] 4.2.7.2.686 Ty as [id number] [address] 2021-06-02 2021-06-02 JAROCHO Nicholas 1.2.840.114 [id number] Univers 00:00:00 00:00:00 Management Rachana Dana EDWARDS 350.1.13.10 [place] [id number] [place] [address] [place] 2021-05-26 2021-05-26 Office Jan [facility] 1.2.987.417 [id number] Univers 10:15:00 10:54:44 Visit Vani Velásquez LOG WASHER 350.1.13.10 ity of [facility] 4.2.7.2.686 [place] as MATERNAL [phone] [facility] ical & CHILD [address] [place] [address] 2021-05-26 2021-05-26 Outpatient R AKINSIKINGS, [facility] [id number] Univers 10:15:00 10:54:44 VANI roberts [facility] 2021-05-26 2021-05-26 Outpatient R AKINSIPE, [facility] [id number] Univers 10:15:00 10:15:00 VANI roberts [facility] 2021-05-26 2021-05-26 Orders Doctor CUMMINS 1.2.840.114 [id number] Univers 00:00:00 00:00:00 Only Unassigned, JESUS 350.1.13.10 ity of [place] [facility] 4.2.7.2.686 Ty as [id number] [address] 2021-05-21 2021-05-21 Outpatient R AKINSIPE, [facility] [id number] Univers 10:00:00 10:00:00 VANI roberts [facility] 2021-01-12 2021-01-12 Emergency Sergio Calloway [facility] 1.2.840.114 [id number] Univers 15:00:00 17:49:00 Kacie Stephen 350.1.13.10 i [place] [phone] [facility] 084 [place] 2020-07-10 2020-07-10 Outpatient R [facility] [id number] Univers 12:30:00 12:30:00 ity of [facility] 2020-06-23 2020-06-23 Patient Thaddeus [facility] 1.2.840.114 [id number] Univers 00:00:00 00:00:00 Outreach Tye PRIMARY 350.1.13.10 i ty of [facility] [place]2.7.2.[place] [id number] Md [address] 2020-06-03 2020-06-03 Office Peggy [facility] 1.2.840.114 [id number] Univers 10:28:44 11:00:41 Visit Hellen Cortez LOG WASHER 350.1.13.10 ity [facility] 4.2.7.2.686 [place] as MATERNAL [id number] [facility] ical & CHILD [address] [place] [address] 2020-06-03 2020-06-03 Outpatient Dana WOODS [facility] [id number] Univers 10:45:00 10:45:00 KATEA lesia o [facility] 2020-06-03 2020-06-03 Outpatient Dana WOODS [facility] [id number] Univers 10:45:00 10:45:00 KATEA lesia o f [facility] 2020-04-15 2020-04-15 Outpatient Dana WOODS [facility] [id number] Univers 14:30:00 14:30:00 KATEA lesia o f [facility] 2020-04-15 2020-04-15 Outpatient Dana WOODS [facility] [id number] Univers 14:30:00 14:30:00 KATEA lesia o [facility] 2020-04-14 2020-04-14 Outpatient [facility] [id number] Univers 13:30:00 13:30:00 KATEA bhargaviy o [facility] 2020-04-09 2020-04-09 Outpatient R WOODS, [facility] [id number] Univers 13:30:00 13:30:00 HELLEN hair f [facility] 2020-04-07 2020-04-07 Outpatient R OSORIO [facility] [id number] Univers 13:45:00 13:45:[address] [facility] 2020-04-05 2020-04-05 Emergency [facility] 1.2.840.114 [id number] 06:31:00 06:45:00 Rosalina Bruce 350.1.13.10 [place] 4.2.7.2.686 [place] [id number] [facility] 2020-04-05 2020-04-[address] [facility] 1.2.840.114 [id number] Univers 06:31:00 06:45:00 Rosalina Bruce 350.1.13.10 ity [facility] 4[place]2.7.2.[place] [id number] [address] 2020-03-16 2020-03-16 Office [facility] 1.2.840.114 [id number] 13:09:12 14:29:45 Visit Hellen Cortez LOG WASHER 350.1.13.10 REGIONAL 4.2.7.2.686 MATERNAL [id number] & CHILD [address] [place] [address] 2020-03-16 2020-03-16 Office [facility] 1.2.840.114 [id number] Univers 13:09:12 14:29:45 Visit Hellen Cortez LOG WASHER 350.1.13.10 ity of [facility] 4.2.7.2.686 [place] as MATERNAL [id number] Med ical & CHILD [address] [place] [address] 2020-03-16 2020-03-16 Outpatient R PEGGY [facility] [id number] Univers 13:15:00 13:15:00 HELLEN graf o f [facility] 2020-03-16 2020-03-16 Orders Doctor CUMMINS 1.2.840.114 [id number] Univers 00:00:00 00:00:00 Only Unassigned, JESUS 350.1.13.10 ity of [place] [facility] 4.2.7.2.686 Ty as [phone] [address] 2018-12-19 2018-12-19 Telephone [facility] 1.2.840.114 [id number] Univers 00:00:00 00:00:00 Aicha Emy LOG WASHER 350.1.13.10 it y of [facility] 4.2.7.2.686 Ty as MATERNAL [id number] [facility] [address] [place] [address] 2018-12-11 2018-12-11 Orders Doctor MARIA G 1.2.840.114 [id number] Univers 00:00:00 00:00:00 Only Unassigned, JESUS 350.1.13.10 ity of [place] [facility] 4.2.7.2.686 Ty as [phone] [address] 2018-10-31 2018-10-31 Office [facility] [id number] Univers 15:40:31 15:57:46 Visit Aicha Quevedo LOG WASHER 350.1.13.10 it y of [facility] 4.2.7.2.686 [place] as MATERNAL [phone] [facility] & [address] Results Test Description Test Time Test Comments Results Result Comments Source POCT URINALYSIS W SPECIFIC GRAVITY 2022-05-25 15:34:00 Test Item Value Reference Range Interpretation Comme nts POCT U SP GRAV (test code = 3255) . 1.005-1.025 POCT PH U (test code = 3254) . 5-8 POCT U LEUK EST (test code = 3263) . Negative - Negative POCT U NIT (test code = 3262) . Negative - Negative POCT U PROT (test code = 3259) trace Negative - Negative POCT U GLU (test code = 3256) neg Negative - Negative POCT U KETONE (test code = 3258) . Negative - Negative POCT U UROBILI (test code = 3260) . 0.2-1 POCT U BILI (test code = 3261) . Negative - Negative POCT U BLD (test code = 3257) . Negative - Negative POCT U COLOR (test code = 3266) . POCT U APPEAR (test code = 3267) . [facility] URINALYSIS W SPECIFIC [id number] 15:34:00 Test Item Value Reference Range Interpretation Comments POCT U SP GRAV (test code = 3255) . 1.005-1.025 POCT PH U (test code = 3254) . 5-8 POCT U LEUK EST (test code = 3263) . Negative - Negative POCT U NIT (test code = 3262) . Negative - Negative POCT U PROT (test code = 3259) trace Negative - Negative POCT U GLU (test code = 3256) neg Negative - Negative POCT U KETONE (test code = 3258) . Negative - Negative POCT U UROBILI (test code = 3260) . 0.2-1 POCT U BILI (test code = 3261) . Negative - Negative POCT U BLD (test code = 3257) . Negative - Negative POCT U COLOR (test code = 3266) . POCT U APPEAR (test code = 3267) . [facility] URINALYSIS W/O SPECIFIC [id number] 15:45:00 Test Item Value Reference Range Interpretation Comments POCT PH U (test code = 3254) 5 mg/dl 5-8 POCT U LEUK EST (test code = 2+ Negative - Negative 3263) POCT U NIT (test code = 3262) POS Negative - Negative POCT U PROT (test code = 3259) Trace Negative - Negative POCT U GLU (test code = 3256) Neg Negative - Negative POCT U KETONE (test code = 3258) None Negative - Negative POCT U BLD (test code = 3257) Trace Negative - Negative [facility] [id number] 15:44:00 Test Item Value Reference Range Interpretation Comments POCT PREG (test code = 1605) Positive On board controls acceptable with C Yes Line (test code = 3574) POCT PREG LOT # (test code = 3575) POCT PREG TEST DATE (test code = 3576) [facility] [id number] 15:48:00 Test Item Value Reference Range Interpretation Comments POCT PREG (test code = 1605) Negative On board controls acceptable with C Yes Line (test code = 3574) POCT PREG LOT # (test code = 3575) POCT PREG TEST DATE (test code = 3576) [facility] [id number] 15:48:00 Test Item Value Reference Range Interpretation Comments POCT PREG (test code = 1605) Negative On board controls acceptable with C Yes Line (test code = 3574) POCT PREG LOT # (test code = 3575) POCT PREG TEST DATE (test code = 3576) [facility] [id number] 22:27:00 Test Item Value Reference Range Interpretation Comments POCT PREG (test code = 1605) Negative On board controls acceptable with C Yes Line (test code = 3574) POCT PREG LOT # (test code = 3575) POCT PREG TEST DATE (test code = 3576) [facility] [id number] 22:27:00 Test Item Value Reference Range Interpretation Comments POCT PREG (test code = 1605) Negative On board controls acceptable with C Yes Line (test code = 3574) POCT PREG LOT # (test code = 3575) POCT PREG TEST DATE (test code = 3576) [facility]
[2022-05-29] MEDS ORDERED: ACETAMINOPHEN 325 MG TABLET ONE (23:54)
[2022-05-29] MEDS ORDERED: NA CHLORIDE 0.9% 1,000 ML ONE (23:54)
[2022-05-29] MEDS ORDERED: ONDANSETRON 4 MG/2 ML VIAL ONE (23:54)
[2022-05-30 00:32] LABS: Hematocrit 36.5 % (36.0-45.0); Lymphocytes % 7.3 % (15.3-44.8); MCV 84.3 fL (80-100); MPV 10.4 fL (7.6-11.3); RBC Red Blood Cell Count 4.33 M/uL (3.86-4.86)
[2022-05-30 00:54] LABS: Potassium 3.9 mmol/L (3.5-5.1)
[2022-05-30 01:38] LABS: Urine Blood Negative (Negative); Urine Glucose Negative (Negative); Urine Protein 1+ (Negative); Urine Specific Gravity >=1.030 (1.005-1.030); Urine pH 5.5 (5.0-7.0)
--- NOTE | 2022-05-30 01:46 | EDPHYS ---
Physician Documentation [facility] Name: Marla Harmon Age: 21 yrs Sex: Female : 2000 Arrival Date: 05/29/2022 Time: 23:19 Bed 3 Private MD: ED Physician Eliezer Andrade HPI: 05/29 23:35 This 21 yrs old Female presents to ER via Ambulatory with complaints of Vomiting. sp3 23:35 21-year-old female with no past medical history currently a G2, who reports to sp3 the ED with chief complaint nausea and vomiting with mild lower abdominal cramping. Patient has had a positive sick contact with her mother who states she has had "a viral bug". Had no morning sickness with her first as well as no complications. Currently, patient states that she has had 1 ultrasound which demonstrated no abnormality patient denies any current vaginal bleeding or discharge. On review of systems, there is no fever, URI symptoms, headache, neck pain, chest pain, shortness of breath, back pain, diarrhea, rash trauma, travel history, or any other symptoms or aspects at this time.. 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 - Social history:: Smoking status: Patient/guardian denies using tobacco. ROS: 23:36 Constitutional: Negative for fever, chills, and weight loss, Eyes: Negative for injury, sp3 pain, redness, and discharge, ENT: Negative for injury, pain, and discharge, Neck: Negative for injury, pain, and swelling, Cardiovascular: Negative for chest pain, palpitations, and edema, Respiratory: Negative for shortness of breath, cough, wheezing, and pleuritic chest pain, Back: Negative for injury and pain, MS/Extremity: Negative for injury and deformity, Skin: Negative for injury, rash, and discoloration, Neuro: Negative for headache, weakness, numbness, tingling, and seizure, Psych: Negative for depression, anxiety, suicide ideation, homicidal ideation, and hallucinations, Allergy/Immunology: Negative for hives, rash, and allergies, Endocrine: Negative for neck swelling, polydipsia, polyuria, polyphagia, and marked weight changes. 23:36 All other systems are negative. Exam: 05/30 01:43 Constitutional: This is a well developed, well nourished patient who is awake, alert, sp3 and in no acute distress. 01:44 Head/Face: Normocephalic, atraumatic. Eyes: Pupils equal round and reactive to light, sp3 extra-ocular motions intact. Lids and lashes normal. Conjunctiva and sclera are non-icteric and not injected. Cornea within normal limits. Periorbital areas with no swelling, redness, or edema. ENT: Nares patent. No nasal discharge, no septal abnormalities noted. External auditory canals are clear. Oropharynx with no redness, swelling, or masses, exudates, or evidence of obstruction, uvula midline. Mucous membranes moist. Neck: Trachea midline, no thyromegaly or masses palpated, and no cervical lymphadenopathy. Supple, full range of motion without nuchal rigidity, or vertebral point tenderness. No Meningismus. Chest/axilla: Normal chest wall appearance and motion. Nontender with no deformity. No lesions are appreciated. Cardiovascular: Regular rate and rhythm with a normal S1 and S2. No gallops, murmurs, or rubs. Normal PMI, no JVD. No pulse deficits. Respiratory: Lungs have equal breath sounds bilaterally, clear to auscultation and percussion. No rales, rhonchi or wheezes noted. No increased work of breathing, no retractions or nasal flaring. Abdomen/GI: Soft, non-tender, with normal bowel sounds. No distension or tympany. No guarding or rebound. No evidence of tenderness throughout. Back: No spinal tenderness. No costovertebral tenderness. Full range of motion. Vital Signs: 05/29 23:29 BP 145 / 76; Pulse 91; Resp 17; Temp 99.3(O); Pulse Ox 99% on R/A; Weight 112.94 kg ll3 (R); Height 5 ft. 9 in. (175.26 cm) (R); Pain 6/10; 05/30 00:54 BP 100 / 58; Pulse 84; Resp 16; Pulse Ox 97% on R/A; jb4 02:02 BP 124 / 61; Pulse 89; Resp 16; Pulse Ox 96% on R/A; jb4 05/29 23:29 Body Mass Index 36.77 (112.94 kg, 175.26 cm) ll3 MDM: 05/29 23:35 Patient medically screened. sp3 23:36 Data reviewed: vital signs, nurses notes, lab test result(s), radiologic studies. ED sp3 course: 21-year-old female with vomiting and mild lower abdominal cramping. Most likely diagnosis is hyperemesis versus viral syndrome. Met highly suspicious for threatened AB however given her symptoms, ultrasound and hCG work-up is indicated. If work-up is negative and patient feels better, likely discharge home with OB follow-up.. 05/30 01:42 ED course: Patient is no longer having emesis. Laboratory values reviewed and sp3 demonstrate no acute abnormality. hCG is appropriate given her gestational age. Ultrasound demonstrates no significant abnormalities or bleeding. Will discharge patient home on Zofran with PATTERN DRAFTER follow-up as needed.. 05/29 23:31 Order name: Abo/rh Typing 3 05/29 23:31 Order name: Basic Metabolic Panel 3 05/29 23:31 Order name: CBC with Diff 3 05/29 23:31 Order name: Quantitative Hcg 3 05/30 00:37 Order name: CBC with Automated Diff [facility] 05/30 00:54 Order name: Basic Metabolic Panel [facility] 05/29 23:31 Order name: US Transvaginal Ob 3 05/30 00:54 Order name: HCG, Quantitative [facility] 05/30 01:08 Order name: ABO/RH typing [facility] 05/30 01:38 Order name: Urine Dipstick-Ancillary; Complete Time: 01:39 EDMS 05/30 01:39 Order name: UAM 3 05/30 01:58 Order name: Urinalysis W/Microscopic EDKY 05/29 23:31 Order name: IV Saline Lock; Complete Time: 23:45 3 05/29 23:31 Order name: Labs collected and sent; Complete Time: 23:45 3 05/29 23:31 Order name: NPO; Complete Time: 23:45 3 05/29 23:31 Order name: Urine Dipstick-Ancillary (obtain specimen); Complete Time: 02:02 sp3 Administered Medications: 00:12 Drug: Zofran (Ondansetron) 4 mg Route: IVP; Site: left antecubital; aa9 00:12 Drug: NS 0.9% 1000 ml Route: IV; Rate: 1 bolus; Site: left antecubital; aa9 00:39 Drug: Tylenol 650 mg Route: PO; jb4 Disposition Summary: 05/30/22 01:45 Discharge Ordered Location: Home sp3 Condition: Stable sp3 Diagnosis - Mild hyperemesis gravidarum sp3 Followup: sp3 - With: Private Physician - When: Upon discharge from the Emergency Department - Reason: Continuance of care Discharge Instructions: - Discharge Summary Sheet sp3 - Morning Sickness, Cbys-fp-Znhy sp3 Forms: - Medication Reconciliation Form sp3 - Thank You Letter sp3 - Work release form jb4 - Antibiotic Education sp3 - Prescription Opioid Use sp3 Prescriptions: - Zofran 4 mg Oral Tablet - take 1 tablet by ORAL route every 12 hours As needed; 20 tablet; Refills: 0, sp3 Product Selection Permitted Signatures: Dispatcher [employer] Carlos Connor, RN RN jb4 Eliezer Andrade MD MD sp3 Monster Mitchell RN RN ll3 Malini Pryor RN RN aa9
--- NOTE | 2022-05-30 01:46 | ER ---
Nurse's Notes [facility] Name: Marla Harmon Age: 21 yrs Sex: Female : 2000 Arrival Date: 05/29/2022 Time: 23:19 Bed 3 Private MD: Diagnosis: Mild hyperemesis gravidarum Presentation: 05/29 23:29 Chief complaint: Patient states: C/o N/V and abdominal pain since 9 pm. Coronavirus ll3 screen: Vaccine status: Patient reports being unvaccinated. muscle pain, nausea, vomiting. Ebola Screen: No symptoms or risks identified at this time. Initial Sepsis Screen: Does the patient meet any 2 criteria? No. Patient's initial sepsis screen is negative. Does the patient have a suspected source of infection? No. Patient's initial sepsis screen is negative. Risk Assessment: Do you want to hurt yourself or someone else? Patient reports no desire to harm self or others. Onset of symptoms was May 29, 2022 at 21:00. 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 - Social history:: Smoking status: Patient/guardian denies using tobacco. Screenin/27 02:02 [facility] ED Fall Risk Assessment (Adult) History of falling in the last 3 months, jb4 including since admission No falls in past 3 months (0 pts) Confusion or Disorientation No (0 pts) Score/Fall Risk Level 0 - 2 = Low Risk Oriented to surroundings, Maintained a safe environment. Abuse screen: Denies threats or abuse. Nutritional screening: No deficits noted. Tuberculosis screening: No symptoms or risk factors identified. Assessment: 00:12 General: Appears in no apparent distress. uncomfortable, Behavior is calm, cooperative, jb4 appropriate for age. Pain: Complains of pain in abdomen Pain does not radiate. Pain currently is 6 out of 10 on a pain scale. Neuro: Level of Consciousness is awake, alert, obeys commands, Oriented to person, place, time, situation. Cardiovascular: Patient's skin is warm and dry. Respiratory: Airway is patent Respiratory effort is even, unlabored, Respiratory pattern is regular, symmetrical. GI: Abdomen is round non-distended, Reports lower abdominal pain. : No signs and/or symptoms were reported regarding the genitourinary system. EENT: No signs and/or symptoms were reported regarding the EENT system. Derm: Skin is intact, Skin is pink, warm \T\ dry. Musculoskeletal: Circulation, motion, and sensation intact. Range of motion: intact in all extremities. 00:42 Reassessment: Patient appears in no apparent distress at this time. Patient and/or jb4 family updated on plan of care and expected duration. Pain level reassessed. Patient is alert, oriented x 3, equal unlabored respirations, skin warm/dry/pink. 02:02 Reassessment: Patient appears in no apparent distress at this time. Patient and/or jb4 family updated on plan of care and expected duration. Pain level reassessed. Patient is alert, oriented x 3, equal unlabored respirations, skin warm/dry/pink. Vital Signs: 05/29 23:29 BP 145 / 76; Pulse 91; Resp 17; Temp 99.3(O); Pulse Ox 99% on R/A; Weight 112.94 kg ll3 (R); Height 5 ft. 9 in. (175.26 cm) (R); Pain 6/10; 05/30 00:54 BP 100 / 58; Pulse 84; Resp 16; Pulse Ox 97% on R/A; jb4 02:02 BP 124 / 61; Pulse 89; Resp 16; Pulse Ox 96% on R/A; jb4 05/29 23:29 Body Mass Index 36.77 (112.94 kg, 175.26 cm) ll3 ED Course: 05/29 23:19 Patient arrived in ED. ag3 23:29 Eliezer Andrade MD is Attending Physician. sp3 23:30 Triage completed. ll3 23:30 Arm band placed on Patient placed in an exam room, on a stretcher, on pulse oximetry. ll3 23:35 Carlos Horton RN is Primary Nurse. jb4 23:45 Quantitative Hcg Sent. jb4 23:45 CBC with Diff Sent. jb4 23:45 Basic Metabolic Panel Sent. jb4 23:45 Abo/rh Typing Sent. jb4 23:46 No provider procedures requiring assistance completed. Initial lab(s) drawn, by me, jb4 sent to lab. Inserted saline lock: 20 gauge in left antecubital area, using aseptic technique. Blood collected. 05/30 01:42 UAM Sent. jb4 02:02 Patient has correct armband on for positive identification. Bed in low position. Call jb4 light in reach. Side rails up X 1. 02:02 IV discontinued, intact, bleeding controlled, No redness/swelling at site. Pressure jb4 dressing applied. 02:44 US Transvaginal Ob In Process Unspecified. EDMS Administered Medications: 00:12 Drug: Zofran (Ondansetron) 4 mg Route: IVP; Site: left antecubital; aa9 00:12 Drug: NS 0.9% 1000 ml Route: IV; Rate: 1 bolus; Site: left antecubital; aa9 00:39 Drug: Tylenol 650 mg Route: PO; jb4 Medication: 02:02 VIS not applicable for this client. jb4 Outcome: 01:45 Discharge ordered by . sp3 02:02 Discharged to home ambulatory. jb4 02:02 Condition: stable 02:02 Discharge instructions given to patient, Instructed on medication usage, Demonstrated understanding of instructions, follow-up care, medications, Prescriptions given X 1. 02:04 Patient left the ED. jb4 Signatures: Dispatcher [employer] EDMS Carlos Horton RN RN jb4 Jessica Landa3 Eliezer Andrade MD MD sp3 Monster Mitchell RN RN ll3 Malini Pryor RN RN aa9
[2022-05-30 01:57] LABS: Specific Gravity 1.028 (1.005-1.030); Urine Bacteria None Seen /HPF (<20); Urine Bilirubin NEGATIVE (Negative); Urine Blood Negative (Negative); Urine Clarity Clear (Clear); Urine Color Yellow (Yellow); Urine Glucose NEGATIVE (Negative); Urine Mucus 4+ /HPF (None Seen); Urine Protein 1+ (Negative); Urine RBC None Seen /HPF (None Seen); Urine Urobilinogen Normal (Normal); Urine pH 5.5 (5.0-7.0)
[2022-05-30 02:09] VITALS: TEMP 99.3
[2022-05-30 02:11] VITALS: BP 124/61; O2SAT 96
--- NOTE | 2022-05-30 10:51 | RAD REPORT ---
EXAM DESCRIPTION: US - Transvaginal OB - 05/30/2022 12:12 am CLINICAL HISTORY: 21 years Female ABD PAIN COMPARISON: None TECHNIQUE: Endovaginal sonography of the fetus was performed. FINDINGS: Uterus is enlarged measuring 10.6 x 7.2 x 8.5 gestational sac is seen within the uterus. F etal pole is identified measuring 3.3 cm. This correlates with a age of 9 weeks 6 days. Heart r ate was 1 43 bpm. No subchorionic hemorrhage. Findings indicating EDC of December 26, 2022 Right ovary is normal in size and echogenicity measuring 3.1 x 1.6 x 2.7 cm. Doppler evaluation revea led satisfactory flow. Left ovary not identified throughout the study. No abnormal fluid collections seen. IMPRESSION: Single viable 9 week 6 day intrauterine fetus. No abnormality noted. 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 The interpreting radiologist is fully responsible for the content of the report.
== END 2022-05-30 02:04 | disposition home or self-care (01) ==
LOC: ER 23:09
DX: O21.0 Mild hyperemesis gravidarum (principal)
CPT/HCPCS: 85025; 81001; 80048; 36415; 86900; 86901; 84702; 81003; 76817; J7030; J2405; 96374; 99284

== ENCOUNTER 2022-11-28 07:28 | Emergency (ER) | payer OTHER ==
--- OUTSIDE RECORDS SUMMARY | 2022-11-28 07:37 | XMS REPORT | Continuity of Care Document ---
:2000 Author Organization [facility] t Address [address] [facility]. [address] [place] [address] Care Team Providers Name Role Phone Vani Johnson Primary Care Physician [phone] MARIA G JASSO Attending Clinician Unavailable VANI MONTOYA Attending Clinician Unavailable SIMONA APARICIO Attending Clinician Unavailable Simona Aparicio CNM Attending Clinician Vani Johnson Attending Clinician [phone], [facility] Room Attending Clinician Unavailable Willie Ramirez DO Attending Clinician WILLIE RAMIREZ Attending Clinician Unavailable Ultrasound, Ang-Mfm Attending Clinician Unavailable Madeline Garcia MD Attending Clinician MADELINE GARCIA Attending Clinician Unavailable MADELINE GARCIA Attending Clinician Unavailable Lab, Lolichmatty Attending Clinician Unavailable Lab, Angie-Rmchp Attending Clinician Unavailable Tonya Mccain Attending Clinician Doctor Unassigned, Epps Attending Clinician Unavailable Provider, Imsael Temp Attending Clinician Unavailable UNKNOWN, ATTENDING Attending Clinician Unavailable Rachana Teague LMSW Attending Clinician Unavailable Sergio Gastelum Attending Clinician Tye Travis DO Attending Clinician Hellen Moran Attending Clinician HELLEN WOODS Attending Clinician Unavailable AICHA AC Attending Clinician Unavailable Rosalina Ac DO Attending Clinician Aicha Ramachandran Attending Clinician Payers Payer Name Policy Type Policy Number Effective Date Expiration Date Yarely belle [facility] [id number] 2022 00:00:00 [facility] [id number] 2018 00:00:00 MEDICAID PENDING PENDING 2020 00:00:00 Problems Condition Condition Condition Status Onset Resolution Last Treating Co mments Source Name Details Category Date Date Treatment Clinician Date Anemia of Anemia of Disease Active Uni vers mother in mother in 6-26 [place]y [place] , , [place] antepartum antepartum 00 Me dical Branch Trichomona Trichomona Disease Active Overview : Univers l l 2-07 Formattin ity of vaginitis vaginitis 00:00: [place] of this [place] during during 00 note Medical might be Br anch different from the original. Pending savage UTI in UTI in Disease Active Overview: Univer s 1-30 Formattin i ty of 00:00: g of this [place] note Medical might be Branch different from the original. Pending savage Supervisio Supervisio Disease Active U nivers n of n of 1-25 ity of high-risk high-risk [place]ly[place] Branch Multiparit Multiparit Disease Active U nivers [...] gh 5-29 ity of bleeding bleeding 00:00: [place] on on 00 Medical Nexplanon Nexplanon Bran ch Chlamydia Chlamydia Disease Active Overview: Univers trachomati trachomati 5-29 Formattin ity of s s 00:00: g [...] (BMI 4-02 ity of 30-39.9) 30-39.9) 00:00: [place] [facility] Obesity in Obesity in Disease Active U nivers 4-02 ity of 00:00: [place] [facility] Screen for Screen for Disease Active U nivers STD STD 4-02 ity of (sexually ([place]ually [place] transmitte transmitte 00 Me dical d disease) d disease) Br anch Allergies, Adverse Reactions, Alerts Allergy Allergy Status Severity Reaction(s) Onset Inactive Treating Comm ents Source Name Type Date Date Clinician NO KNOWN Drug Active Univers ALLERGIE Class ity of S [facility] Social History Social Habit Start Date Stop Date Quantity Comments Source ASSERTION 2022-03-31 University of 00:00:00 [facility] Gender identity Universit y of [facility] Sexual orientation Univer sity of [facility] Alcohol intake 2022-11-23 2022-11-23 Current drinker Unive rsity of 00:00:00 00:00:00 of alcohol [facility] (finding) Branch Exposure to 2022-08-07 2022-08-17 Not sure University SARS-CoV-2 (event) 00:00:00 10:24:00 [facility] History of Social 2022-04-27 2022-04-27 Univers ity of function 00:00:00 00:00:00 [facility] Cigarettes smoked 2022-04-27 2022-04-27 Univers ity of current (pack per 00:00:00 00:00:00 [facility] ) - Reported Branch Tobacco use and 2022-04-27 2022-04-27 Smokeless Universit y of exposure 00:00:00 00:00:00 tobacco non-user [facility] dical Branch Alcohol Comment 2022-04-27 2022-04-27 quit 04/16/2022 Unive rsity of 00:00:00 00:00:00 [facility] History of tobacco 2016-07-03 2022-04-16 Cigarette Smoker University of use 00:00:00 00:00:00 [facility] History SDWV 2020-03-16 2020-03-16 3 University o f Alcohol Frequency 00:00:00 00:00:00 [facility] edical Branch History SDOH 2020-03-16 2020-03-16 99 University o f Alcohol Std Drinks 00:00:00 00:00:00 [facility] History SDOH 2020-03-16 2020-03-16 99 University o f Alcohol Binge 00:00:00 00:00:00 [facility] al Branch Sex Assigned At [birth year] Universit y of 00:00:00 00:00:00 [facility] Smoking Status Start Date Stop Date Source Ex-smoker 2022-04-27 00:00:2022-04-27 00:00:00 [facility] Smokes tobacco daily 2022-02-17 00:00:00 [facility] Medications Ordered Filled Start Stop Current Ordering Indication Dosage Frequency Signature Comments Components Source Medication Medication Date Date Medication? Clinician (SIG) Name Name ferrous Yes [id number] 325mg Take 1 Un danis sulfate 325 6-26 tablet by ity of mg (65 mg 00:00: [place] iron[place] 00 the Medical tablet morning Branch and 1 tablet in the evening. ascorbic Yes [id number] 500mg Take 1 U nivers acid, 6-26 tablet by ity of vitamin C, 00:00: [place] 500 mg 00 the Medical tablet morning Branch and 1 tablet at noon and 1 tablet in the evening. ferrous Yes [id number] 325mg Take 1 Un danis sulfate 325 6-26 tablet by ity of mg (65 mg 00:00: [place] 00 the Medical tablet morning Branch and 1 tablet in the evening. ascorbic Yes [id number] 500mg Take 1 U nivers acid, 6-26 tablet by ity of vitamin C, 00:00: [place] 500 mg 00 the Medical tablet morning Branch and 1 tablet at noon and 1 tablet in the evening. ferrous Yes [id number] 325mg Take 1 Un danis sulfate 325 6-26 tablet by ity of mg (65 mg 00:00: [place] 00 the Medical tablet morning Branch and 1 tablet in the evening. ascorbic Yes [id number] 500mg Take 1 U nivers acid, 6-26 tablet by ity of vitamin C, 00:00: [place] mg 00 the Medical tablet morning Branch and 1 tablet at noon and 1 tablet in the evening. ferrous Yes [id number] 325mg Take 1 Un danis sulfate 325 6-26 tablet by ity of mg (65 mg 00:00: [place] 00 the Medical tablet morning Branch and 1 tablet in the evening. ascorbic Yes [id number] 500mg Take 1 U nivers acid, 6-26 tablet by ity of vitamin C, 00:00: [place] mg 00 the Medical tablet morning Branch and 1 tablet at noon and 1 tablet in the evening. ferrous 2023-0 Yes [id number] 325mg Take 1 Un danis sulfate 325 6-26 tablet by ity of mg (65 mg 00:00: [place] 00 the Medical tablet morning Branch and 1 tablet in the evening. ascorbic 2022-0 Yes [id number] 500mg Take 1 U nivers acid, 6-26 tablet by ity of vitamin C, 00:00: [place] mg 00 the Medical tablet morning Branch and 1 tablet at noon and 1 tablet in the evening. ferrous 2022-0 Yes [id number] 325mg Take 1 Un danis sulfate 325 6-26 tablet by ity of mg (65 mg 00:00: [place] 00 the Medical tablet morning Branch and 1 tablet in the evening. ascorbic 2022-0 Yes [id number] 500mg Take 1 U nivers acid, 6-26 tablet by ity of vitamin C, 00:00: [place] mg 00 the Medical tablet morning Branch and 1 tablet at noon and 1 tablet in the evening. ferrous 2022-0 Yes [id number] 325mg Take 1 Un danis sulfate 325 6-26 tablet by ity of mg (65 mg 00:00: [place] 00 the Medical tablet morning Branch and 1 tablet in the evening. ascorbic 2022-0 Yes [id number] 500mg Take 1 U nivers acid, 6-26 tablet by ity of vitamin C, 00:00: [place] mg 00 the Medical tablet morning Branch and 1 tablet at noon and 1 tablet in the evening. ferrous 2022-0 Yes [id number] 325mg Take 1 Un danis sulfate 325 6-26 tablet by ity of mg (65 mg 00:00: [place] 00 the Medical tablet morning Branch and 1 tablet in the evening. ascorbic 2022-0 Yes [id number] 500mg Take 1 U nivers acid, 6-26 tablet by ity of vitamin C, 00:00: [place] mg 00 the Medical tablet morning Branch and 1 tablet at noon and 1 tablet in the evening. ferrous 2022-0 Yes [id number] 325mg Take 1 Un danis sulfate 325 6-26 tablet by ity of mg (65 mg 00:00: [place] iron[place] 00 the Medical tablet morning Branch and 1 tablet in the evening. ascorbic 2022-0 Yes [id number] 500mg Take 1 U nivers acid, 6-26 tablet by ity of vitamin C, 00:00: [place] mg 00 the Medical tablet morning Branch and 1 tablet at noon and 1 tablet in the evening. ferrous 2022-0 Yes [id number] 325mg Take 1 Un danis sulfate 325 6-26 tablet by ity of mg (65 mg 00:00: [place] iron[place] 00 the Medical tablet morning Branch and 1 tablet in the evening. ascorbic 2022-0 Yes [id number] 500mg Take 1 U nivers acid, 6-26 tablet by ity of vitamin C, 00:00: [place] mg 00 the Medical tablet morning Branch and 1 tablet at noon and 1 tablet in the evening. metroNIDAZO 2022-2022- No [id number] 2000mg Take 4 Univers LE 500 mg 2- 02-08 tablets by ity of tablet 00:00: 05:59 [place] 00 :[place] now for 1 Medical dose. Branch metroNIDAZO 2022-0 2022- No [id number] 2000mg Take 4 Univers LE 500 mg 2- 02-08 tablets by ity of tablet 00:00: 05:59 [place] 00 :[place] now for 1 Medical dose. Branch metroNIDAZO 2022-2022- No [id number] 2000mg Take 4 Univers LE 500 mg 2- 02-08 tablets by ity of tablet 00:00: 05:59 [place] 00 :[place] now for 1 Medical dose. Branch ampicillin 2022-0 2022- No [id number] 500mg Take 1 Univers 500 mg 1-30 02-10 capsule by ity of capsule 00:00: 05:59 mouth 4 [place] 00 :00 (four) Medical times Branch daily for 10 days. ampicillin 2022-0 2022- No [id number] 500mg Take 1 Univers 500 mg 1-30 02-10 capsule by ity of capsule 00:00: 05:59 mouth 4 [place] 00 :00 (four) Medical times Branch daily for 10 days. ampicillin 2022-0 2022- No [id number] 500mg Take 1 Univers 500 mg 1-30 02-10 capsule by ity of capsule 00:00: 05:59 mouth 4 [place] 00 :00 (four) Medical times Branch daily for 10 days. ampicillin 2022-0 2022- No [id number] 500mg Take 1 Univers 500 mg 1-30 02-10 capsule by ity of capsule 00:00: 05:59 mouth 4 [place] 00 :00 (four) Medical times Branch daily for 10 days. ampicillin 2022-0 2022- No [id number] 500mg Take 1 Univers 500 mg 1-30 02-10 capsule by ity of capsule 00:00: 05:59 mouth 4 [place] 00 :00 (four) Medical times Branch daily for 10 days. ampicillin 2022-0 2022- No [id number] 500mg Take 1 Univers 500 mg 1-30 02-10 capsule by ity of capsule 00:00: 05:59 mouth 4 [place] 00 :00 (four) Medical times Branch daily for 10 days. proMETHazin Yes [id number] 25mg Take 1 Univers e 25 mg 1-25 tablet by ity of tablet 00:00: mouth [place] 00 every 6 Medical (six) Branch hours as needed for Nausea and Vomiting (N/V). 2022-0 Yes [id number] 1{tbl} Take 1 U nivers multivitami 1-25 tablet by ity of n ( 00:00: mouth in [place] VITAMIN) 00 the Medical tablet morning. Branch proMETHazin 0 Yes [id number] 25mg Take 1 Univers e 25 mg 1-25 tablet by ity of tablet 00:00: mouth [place] 00 every 6 Medical (six) Branch hours as needed for Nausea and Vomiting (N/V). 2022-0 Yes [id number] 1{tbl} Take 1 U nivers multivitami 1-25 tablet by ity of n ( 00:00: mouth in [place] VITAMIN) 00 the Medical tablet morning. Branch proMETHazin 0 Yes [id number] 25mg Take 1 Univers e 25 mg 1-25 tablet by ity of tablet 00:00: mouth [place] 00 every 6 Medical (six) Branch hours as needed for Nausea and Vomiting (N/V). 2022-0 Yes [id number] 1{tbl} Take 1 U nivers multivitami 1-25 tablet by ity of n ( 00:00: mouth in [place] VITAMIN) 00 the Medical tablet morning. Branch proMETHazin 0 Yes [id number] 25mg Take 1 Univers e 25 mg 1-25 tablet by ity of tablet 00:00: mouth [place] 00 every 6 Medical (six) Branch hours as needed for Nausea and Vomiting (N/V). 0 Yes [id number] 1{tbl} Take 1 U nivers multivitami 1-25 tablet by ity of n ( 00:00: mouth in [place] VITAMIN) 00 the Medical tablet morning. Branch proMETHazin Yes [id number] 25mg Take 1 Univers e 25 mg 1-25 tablet by ity of tablet 00:00: mouth [place] 00 every 6 Medical (six) Branch hours as needed for Nausea and Vomiting (N/V). Yes [id number] 1{tbl} Take 1 U nivers multivitami 1-25 tablet by ity of n ( 00:00: mouth in [place] VITAMIN) 00 the Medical tablet morning. Branch proMETHazin Yes [id number] 25mg Take 1 Univers e 25 mg 1-25 tablet by ity of tablet 00:00: mouth [place] 00 every 6 Medical (six) Branch hours as needed for Nausea and Vomiting (N/V). Yes [id number] 1{tbl} Take 1 U nivers multivitami 1-25 tablet by ity of n ( 00:00: mouth in [place] VITAMIN) 00 the Medical tablet morning. Branch proMETHazin Yes [id number] 25mg Take 1 Univers e 25 mg 1-25 tablet by ity of tablet 00:00: mouth [place] 00 every 6 Medical (six) Branch hours as needed for Nausea and Vomiting (N/V). 0 Yes [id number] 1{tbl} Take 1 U nivers multivitami 1-25 tablet by ity of n ( 00:00: mouth in [place] VITAMIN) 00 the Medical tablet morning. Branch proMETHazin 0 Yes [id number] 25mg Take 1 Univers e 25 mg 1-25 tablet by ity of tablet 00:00: mouth [place] 00 every 6 Medical (six) Branch hours as needed for Nausea and Vomiting (N/V). 2022-0 Yes [id number] 1{tbl} Take 1 U nivers multivitami 1-25 tablet by ity of n ( 00:00: mouth in [place] VITAMIN) 00 the Medical tablet morning. Branch proMETHazin 0 Yes [id number] 25mg Take 1 Univers e 25 mg 1-25 tablet by ity of tablet 00:00: mouth [place] 00 every 6 Medical (six) Branch hours as needed for Nausea and Vomiting (N/V). 0 Yes [id number] 1{tbl} Take 1 U nivers multivitami 1-25 tablet by ity of n ( 00:00: mouth in [place] VITAMIN) 00 the Medical tablet morning. Branch proMETHazin Yes [id number] 25mg Take 1 Univers e 25 mg 1-25 tablet by ity of tablet 00:00: mouth [place] 00 every 6 Medical (six) Branch hours as needed for Nausea and Vomiting (N/V). Yes [id number] 1{tbl} Take 1 U nivers multivitami 1-25 tablet by ity of n ( 00:00: mouth in [place] VITAMIN) 00 the Medical tablet morning. Branch proMETHazin Yes [id number] 25mg Take 1 Univers e 25 mg 1-25 tablet by ity of tablet 00:00: mouth [place] 00 every 6 Medical (six) Branch hours as needed for Nausea and Vomiting (N/V). 2022- Yes [id number] 1{tbl} Take 1 U nivers multivitami 1-25 tablet by ity of n ( 00:00: mouth in [place] VITAMIN) 00 the Medical tablet morning. Branch proMETHazin 0 Yes [id number] 25mg Take 1 Univers e 25 mg 1-25 tablet by ity of tablet 00:00: mouth [place] 00 every 6 Medical (six) Branch hours as needed for Nausea and Vomiting (N/V). 2022-0 Yes [id number] 1{tbl} Take 1 U nivers multivitami 1-25 tablet by ity of n ( 00:00: mouth in [place] VITAMIN) 00 the Medical tablet morning. Branch proMETHazin 0 Yes [id number] 25mg Take 1 Univers e 25 mg 1-25 tablet by ity of tablet 00:00: mouth [place] 00 every 6 Medical (six) Branch hours as needed for Nausea and Vomiting (N/V). Yes [id number] 1{tbl} Take 1 U nivers multivitami 1-25 tablet by ity of n ( 00:00: mouth in [place] VITAMIN) 00 the Medical tablet morning. Branch proMETHazin Yes [id number] 25mg Take 1 Univers e 25 mg 1-25 tablet by ity of tablet 00:00: mouth [place] 00 every 6 Medical (six) Branch hours as needed for Nausea and Vomiting (N/V). Yes [id number] 1{tbl} Take 1 U nivers multivitami 1-25 tablet by ity of n ( 00:00: mouth in [place] VITAMIN) 00 the Medical tablet morning. Branch Yes [id number] 1{tbl} Take 1 U nivers multivitami 1-25 tablet by ity of n ( 00:00: mouth in [place] VITAMIN) 00 the Medical tablet morning. Branch proMETHazin Yes [id number] 25mg Take 1 Univers e 25 mg 1-25 tablet by ity of tablet 00:00: mouth [place] 00 every 6 Medical (six) Branch hours as needed for Nausea and Vomiting (N/V). proMETHazin 0 Yes [id number] 25mg Take 1 Univers e 25 mg 1-25 tablet by ity of tablet 00:00: mouth [place] 00 every 6 Medical (six) Branch hours as needed for Nausea and Vomiting (N/V). 0 Yes [id number] 1{tbl} Take 1 U nivers multivitami 1-25 tablet by ity of n ( 00:00: mouth in [place] VITAMIN) 00 the Medical tablet morning. Branch proMETHazin Yes [id number] 25mg Take 1 Univers e 25 mg 1-25 tablet by ity of tablet 00:00: mouth [place] 00 every 6 Medical (six) Branch hours as needed for Nausea and Vomiting (N/V). 2022-0 Yes [id number] 1{tbl} Take 1 U nivers multivitami 1-25 tablet by ity of n ( 00:00: mouth in [place] VITAMIN) 00 the Medical tablet morning. Branch proMETHazin 2023-0 Yes [id number] 25mg Take 1 Univers e 25 mg 1-25 tablet by ity of tablet 00:00: mouth [place] 00 every 6 Medical (six) Branch hours as needed for Nausea and Vomiting (N/V). 2022-0 Yes [id number] 1{tbl} Take 1 U nivers multivitami 1-25 tablet by ity of n ( 00:00: mouth in [place] VITAMIN) 00 the Medical tablet morning. Branch proMETHazin 0 Yes [id number] 25mg Take 1 Univers e 25 mg 1-25 tablet by ity of tablet 00:00: mouth [place] 00 every 6 Medical (six) Branch hours as needed for Nausea and Vomiting (N/V). 2022-0 Yes [id number] 1{tbl} Take 1 U nivers multivitami 1-25 tablet by ity of n ( 00:00: mouth in [place] VITAMIN) 00 the Medical tablet morning. Branch proMETHazin Yes [id number] 25mg Take 1 Univers e 25 mg 1-25 tablet by ity of tablet 00:00: mouth [place] 00 every 6 Medical (six) Branch hours as needed for Nausea and Vomiting (N/V). 2022-0 Yes [id number] 1{tbl} Take 1 U nivers multivitami 1-25 tablet by ity of n ( 00:00: mouth in [place] VITAMIN) 00 the Medical tablet morning. Branch proMETHazin 0 Yes [id number] 25mg Take 1 Univers e 25 mg 1-25 tablet by ity of tablet 00:00: mouth [place] 00 every 6 Medical (six) Branch hours as needed for Nausea and Vomiting (N/V). 2022-0 Yes [id number] 1{tbl} Take 1 U nivers multivitami 1-25 tablet by ity of n ( 00:00: mouth in [place] VITAMIN) 00 the Medical tablet morning. Branch proMETHazin 0 Yes [id number] 25mg Take 1 Univers e 25 mg 1-25 tablet by ity of tablet 00:00: mouth [place] 00 every 6 Medical (six) Branch hours as needed for Nausea and Vomiting (N/V). 2022-0 Yes [id number] 1{tbl} Take 1 U nivers multivitami 1-25 tablet by ity of n ( 00:00: mouth in [place] VITAMIN) 00 the Medical tablet morning. Branch proMETHazin 0 Yes [id number] 25mg Take 1 Univers e 25 mg 1-25 tablet by ity of tablet 00:00: mouth [place] 00 every 6 Medical (six) Branch hours as needed for Nausea and Vomiting (N/V). 0 Yes [id number] 1{tbl} Take 1 U nivers multivitami 1-25 tablet by ity of n ( 00:00: mouth in [place] VITAMIN) 00 the Medical tablet morning. Branch proMETHazin Yes [id number] 25mg Take 1 Univers e 25 mg 1-25 tablet by ity of tablet 00:00: mouth [place] 00 every 6 Medical (six) Branch hours as needed for Nausea and Vomiting (N/V). Yes [id number] 1{tbl} Take 1 U nivers multivitami 1-25 tablet by ity of n ( 00:00: mouth in [place] VITAMIN) 00 the Medical tablet morning. Branch proMETHazin Yes [id number] 25mg Take 1 Univers e 25 mg 1-25 tablet by ity of tablet 00:00: mouth [place] 00 every 6 Medical (six) Branch hours as needed for Nausea and Vomiting (N/V). Yes [id number] 1{tbl} Take 1 U nivers multivitami 1-25 tablet by ity of n ( 00:00: mouth in [place] VITAMIN) 00 the Medical tablet morning. Branch proMETHazin Yes [id number] 25mg Take 1 Univers e 25 mg 1-25 tablet by ity of tablet 00:00: mouth [place] 00 every 6 Medical (six) Branch hours as needed for Nausea and Vomiting (N/V). 0 Yes [id number] 1{tbl} Take 1 U nivers multivitami 1-25 tablet by ity of n ( 00:00: mouth in [place] VITAMIN) 00 the Medical tablet morning. Branch proMETHazin 0 Yes [id number] 25mg Take 1 Univers e 25 mg 1-25 tablet by ity of tablet 00:00: mouth [place] 00 every 6 Medical (six) Branch hours as needed for Nausea and Vomiting (N/V). Yes [id number] 1{tbl} Take 1 U nivers multivitami 1-25 tablet by ity of n ( 00:00: mouth in [place] VITAMIN) 00 the Medical tablet morning. Branch proMETHazin 0 Yes [id number] 25mg Take 1 Univers e 25 mg 1-25 tablet by ity of tablet 00:00: mouth [place] 00 every 6 Medical (six) Branch hours as needed for Nausea and Vomiting (N/V). Yes [id number] 1{tbl} Take 1 U nivers multivitami 1-25 tablet by ity of n ( 00:00: mouth in [place] VITAMIN) 00 the Medical tablet morning. Branch proMETHazin Yes [id number] 25mg Take 1 Univers e 25 mg 1-25 tablet by ity of tablet 00:00: mouth [place] 00 every 6 Medical (six) Branch hours as needed for Nausea and Vomiting (N/V). Yes [id number] 1{tbl} Take 1 U nivers multivitami 1-25 tablet by ity of n ( 00:00: mouth in [place] VITAMIN) 00 the Medical tablet morning. Branch proMETHazin Yes [id number] 25mg Take 1 Univers e 25 mg 1-25 tablet by ity of tablet 00:00: mouth [place] 00 every 6 Medical (six) Branch hours as needed for Nausea and Vomiting (N/V). 0 Yes [id number] 1{tbl} Take 1 U nivers multivitami 1-25 tablet by ity of n ( 00:00: mouth in [place] VITAMIN) 00 the Medical tablet morning. Branch proMETHazin Yes [id number] 25mg Take 1 Univers e 25 mg 1-25 tablet by ity of tablet 00:00: mouth [place] 00 every 6 Medical (six) Branch hours as needed for Nausea and Vomiting (N/V). 2022-0 Yes [id number] 1{tbl} Take 1 U nivers multivitami 1-25 tablet by ity of n ( 00:00: mouth in [place] VITAMIN) 00 the Medical tablet morning. Branch proMETHazin 0 Yes [id number] 25mg Take 1 Univers e 25 mg 1-25 tablet by ity of tablet 00:00: mouth [place] 00 every 6 Medical (six) Branch hours as needed for Nausea and Vomiting (N/V). 2022-0 Yes [id number] 1{tbl} Take 1 U nivers multivitami 1-25 tablet by ity of n ( 00:00: mouth in [place] VITAMIN) 00 the Medical tablet morning. Branch proMETHazin 0 Yes [id number] 25mg Take 1 Univers e 25 mg 1-25 tablet by ity of tablet 00:00: mouth [place] 00 every 6 Medical (six) Branch hours as needed for Nausea and Vomiting (N/V). 2022-0 Yes [id number] 1{tbl} Take 1 U nivers multivitami 1-25 tablet by ity of n ( 00:00: mouth in [place] VITAMIN) 00 the Medical tablet morning. Branch proMETHazin 0 Yes [id number] 25mg Take 1 Univers e 25 mg 1-25 tablet by ity of tablet 00:00: mouth [place] 00 every 6 Medical (six) Branch hours as needed for Nausea and Vomiting (N/V). 0 Yes [id number] 1{tbl} Take 1 U nivers multivitami 1-25 tablet by ity of n ( 00:00: mouth in [place] VITAMIN) 00 the Medical tablet morning. Branch proMETHazin 0 Yes [id number] 25mg Take 1 Univers e 25 mg 1-25 tablet by ity of tablet 00:00: mouth [place] 00 every 6 Medical (six) Branch hours as needed for Nausea and Vomiting (N/V). 2022-0 Yes [id number] 1{tbl} Take 1 U nivers multivitami 1-25 tablet by ity of n ( 00:00: mouth in [place] VITAMIN) 00 the Medical tablet morning. Branch proMETHazin 0 Yes [id number] 25mg Take 1 Univers e 25 mg 1-25 tablet by ity of tablet 00:00: mouth [place] 00 every 6 Medical (six) Branch hours as needed for Nausea and Vomiting (N/V). 2022-0 Yes [id number] 1{tbl} Take 1 U nivers multivitami 1-25 tablet by ity of n ( 00:00: mouth in [place] VITAMIN) 00 the Medical tablet morning. Branch proMETHazin Yes [id number] 25mg Take 1 Univers e 25 mg 1-25 tablet by ity of tablet 00:00: mouth [place] 00 every 6 Medical (six) Branch hours as needed for Nausea and Vomiting (N/V). 0 Yes [id number] 1{tbl} Take 1 U nivers multivitami 1-25 tablet by ity of n ( 00:00: mouth in [place] VITAMIN) 00 the Medical tablet morning. Branch proMETHazin Yes [id number] 25mg Take 1 Univers e 25 mg 1-25 tablet by ity of tablet 00:00: mouth [place] 00 every 6 Medical (six) Branch hours as needed for Nausea and Vomiting (N/V). Yes [id number] 1{tbl} Take 1 U nivers multivitami 1-25 tablet by ity of n ( 00:00: mouth in [place] VITAMIN) 00 the Medical tablet morning. Branch proMETHazin Yes [id number] 25mg Take 1 Univers e 25 mg 1-25 tablet by ity of tablet 00:00: mouth [place] 00 every 6 Medical (six) Branch hours as needed for Nausea and Vomiting (N/V). Yes [id number] 1{tbl} Take 1 U nivers multivitami 1-25 tablet by ity of n ( 00:00: mouth in [place] VITAMIN) 00 the Medical tablet morning. Branch proMETHazin Yes [id number] 25mg Take 1 Univers e 25 mg 1-25 tablet by ity of tablet 00:00: mouth [place] 00 every 6 Medical (six) Branch hours as needed for Nausea and Vomiting (N/V). Yes [id number] 1{tbl} Take 1 [facility] multivitami 1-25 tablet by ity of n ( 00:00: mouth in [place] VITAMIN) 00 the Medical tablet morning. Branch proMETHazin 0 Yes [id number] 25mg Take 1 [facility] 25 mg 1-25 tablet by ity of tablet 00:00: mouth [place] 00 every 6 Medical (six) Branch hours as needed for Nausea and Vomiting (N/V). 2022-0 Yes [id number] 1{tbl} Take 1 [facility] mult[facility]itami 1-25 tablet by it[facility] of n ( 00:00: mouth in [place] VITAMIN) 00 the Medical tablet morning. Branch proMETHazin 0 Yes [id number] 25mg Take 1 [facility] 25 mg 1-25 tablet by ity of tablet 00:00: mouth [place] 00 every 6 Medical (six) Branch hours as needed for Nausea and Vomiting (N/V). Yes [id number] 1{tbl} Take 1 [facility] mult[facility]itami 1-25 tablet by [facility] of n ( 00:00: mouth in [place] VITAMIN) 00 the Medical tablet morning. Branch proMETHazin Yes [id number] 25mg Take 1 [facility] 25 mg 1-25 tablet by ity of tablet 00:00: mouth [place] 00 every 6 Medical (six) Branch hours as needed for Nausea and Vomiting (N/V). Yes [id number] 1{tbl} Take 1 [facility] mult[facility]itami 1-25 tablet by [facility] of n ( 00:00: mouth in [place] VITAMIN) 00 the Medical tablet morning. Branch proMETHazin Yes [id number] 25mg Take 1 [facility] 25 mg 1-25 tablet by ity of tablet 00:00: mouth [place] 00 every 6 Medical (six) Branch hours as needed for Nausea and Vomiting (N/V). 0 Yes [id number] 1{tbl} Take 1 [facility] mult[facility]itami 1-25 tablet by [facility] of n ( 00:00: mouth in [place] VITAMIN) 00 the Medical tablet morning. Branch proMETHazin 0 Yes [id number] 25mg Take 1 [facility] 25 mg 1-25 tablet by ity of tablet 00:00: mouth [place] 00 every 6 Medical (six) Branch hours as needed for Nausea and Vomiting (N/V). 2022-0 Yes [id number] 1{tbl} Take 1 [facility] mult[facility]itami 1-25 tablet by [facility] of n ( 00:00: mouth in [place] VITAMIN) 00 the Medical tablet morning. Branch proMETHazin 0 Yes [id number] 25mg Take 1 [facility] 25 mg 1-25 tablet by ity of tablet 00:00: mouth [place] 00 every 6 Medical (six) Branch hours as needed for Nausea and Vomiting (N/V). 0 Yes [id number] 1{tbl} Take 1 [facility] mult[facility]itami 1-25 tablet by [facility] of n ( 00:00: mouth in [place] VITAMIN) 00 the Medical tablet morning. Branch proMETHazin 0 Yes [id number] 25mg Take 1 [facility] 25 mg 1-25 tablet by ity of tablet 00:00: mouth [place] 00 every 6 Medical (six) Branch hours as needed for Nausea and Vomiting (N/V). Yes [id number] 1{tbl} Take 1 [facility] mult[facility]itami 1-25 tablet by [facility] of n ( 00:00: mouth in [place] VITAMIN) 00 the Medical tablet morning. Branch proMETHazin Yes [id number] 25mg Take 1 [facility] 25 mg 1-25 tablet by ity of tablet 00:00: mouth [place] 00 every 6 Medical (six) Branch hours as needed for Nausea and Vomiting (N/V). Yes [id number] 1{tbl} Take 1 [facility] mult[facility]itami 1-25 tablet by [facility] of n ( 00:00: mouth in [place] VITAMIN) 00 the Medical tablet morning. Branch proMETHazin 0 Yes [id number] 25mg Take 1 [facility] 25 mg 1-25 tablet by ity of tablet 00:00: mouth [place] 00 every 6 Medical (six) Branch hours as needed for Nausea and Vomiting (N/V). 0 Yes [id number] 1{tbl} Take 1 [facility] 1-25 tablet by [facility] of n ( 00:00: mouth in [place] VITAMIN) 00 the Medical tablet morning. Branch proMETHazin 0 Yes [id number] 25mg Take 1 [facility] 25 mg 1-25 tablet by ity of tablet 00:00: mouth [place] 00 every 6 Medical (six) Branch hours as needed for Nausea and Vomiting (N/V). 2022-0 Yes [id number] 1{tbl} Take 1 [facility] mult[facility]itami 1-25 tablet by [facility] of n ( 00:00: mouth in [place] VITAMIN) 00 the Medical tablet morning. Branch proMETHazin 0 Yes [id number] 25mg Take 1 [facility] 25 mg 1-25 tablet by ity of tablet 00:00: mouth [place] 00 every 6 Medical (six) Branch hours as needed for Nausea and Vomiting (N/V). Yes [id number] 1{tbl} Take 1 [facility] mult[facility]itami 1-25 tablet by [facility] of n ( 00:00: mouth in [place] VITAMIN) 00 the Medical tablet morning. Branch proMETHazin Yes [id number] 25mg Take 1 [facility] 25 mg 1-25 tablet by ity of tablet 00:00: mouth [place] 00 every 6 Medical (six) Branch hours as needed for Nausea and Vomiting (N/V). Yes [id number] 1{tbl} Take 1 [facility] mult[facility]itami 1-25 tablet by [facility] of n ( 00:00: mouth [place] VITAMIN) 00 the Medical tablet morning. Branch 2022- No [id number] 1{tbl} Take 1 [facility] multivitami 1-25 01-25 [...] capsule HOURS FOR Branch 7 DAYS Nitrofurant 2022- Yes TAKE 1 [facility] ers oin&Nit. 1-15 [...] capsule HOURS FOR Branch 7 DAYS Nitrofurant 2022- Yes TAKE 1 [facility] ers oin&Nit. 1-15 CAPSULE BY ity o f [facility] 00:00: MOUTH [place] 100 mg 00 EVERY 12 Medical capsule HOURS FOR Branch 7 DAYS Nitrofurant 2022- Yes TAKE 1 [facility] ers oin&Nit. 1-15 CAPSULE BY ity o f [facility] 00:00: MOUTH [place] 100 mg 00 EVERY 12 Medical capsule HOURS FOR Branch 7 DAYS Nitrofurant 2022- Yes TAKE 1 [facility] ers oin&Nit. 1-15 CAPSULE BY ity o f [facility] 00:00: MOUTH [place] 100 mg 00 EVERY 12 Medical capsule HOURS FOR Branch 7 DAYS Nitrofurant 2022- Yes TAKE 1 [facility] ers oin&Nit. 1-15 CAPSULE BY ity o f [facility] 00:00: MOUTH [place] 100 mg 00 EVERY 12 Medical capsule HOURS FOR Branch 7 DAYS Nitrofurant 2022- Yes TAKE 1 [facility] ers oin&Nit. 1-15 [...] capsule HOURS FOR Branch 7 DAYS Nitrofurant 2022- Yes TAKE 1 [facility] ers oin&Nit. 1-15 CAPSULE BY ity o f [facility] 00:00: MOUTH [place] 100 mg 00 EVERY 12 Medical capsule HOURS FOR Branch 7 DAYS Nitrofurant 2022- Yes TAKE 1 [facility] ers oin&Nit. 1-15 CAPSULE BY ity o f [facility] 00:00: MOUTH [place] 100 mg 00 EVERY 12 Medical capsule HOURS FOR Branch 7 DAYS Nitrofurant 2022- Yes TAKE 1 [facility] ers oin&Nit. 1-15 CAPSULE BY ity o f [facility] 00:00: MOUTH [place] 100 mg 00 EVERY 12 Medical capsule HOURS FOR Branch 7 DAYS Nitrofurant 2022- Yes TAKE 1 [facility] ers oin&Nit. 1-15 CAPSULE BY ity o f [facility] 00:00: MOUTH [place] 100 mg 00 EVERY 12 Medical capsule HOURS FOR Branch 7 DAYS Nitrofurant 2022- Yes TAKE 1 [facility] ers oin&Nit. 1-15 [...] capsule HOURS FOR Branch 7 DAYS Nitrofurant 2022- Yes TAKE 1 [facility] ers oin&Nit. 1-15 CAPSULE BY ity o f [facility] 00:00: MOUTH [place] 100 mg 00 EVERY 12 Medical capsule HOURS FOR Branch 7 DAYS Nitrofurant 2022- Yes TAKE 1 [facility] ers oin&Nit. 1-15 CAPSULE BY ity o f [facility] 00:00: MOUTH [place] 100 mg 00 EVERY 12 Medical capsule HOURS FOR Branch 7 DAYS Nitrofurant 2022-0 Yes TAKE 1 [facility] ers oin&Nit. 1-15 CAPSULE BY ity o f [facility] 00:00: MOUTH [place] 100 mg 00 EVERY 12 Medical capsule HOURS FOR Branch 7 DAYS Nitrofurant 2022- Yes TAKE 1 [facility] ers oin&Nit. 1-15 CAPSULE BY ity o f [facility] 00:00: MOUTH [place] 100 mg 00 EVERY 12 Medical capsule HOURS FOR Branch 7 DAYS Nitrofurant Yes TAKE 1 [facility] ers oin&Nit. 1-15 CAPSULE BY ity o f [facility] 00:00: MOUTH [place] 100 mg 00 EVERY 12 Medical capsule HOURS FOR Branch 7 DAYS Nitrofurant 2022- Yes TAKE 1 [facility] ers oin&Nit. 1-15 CAPSULE BY ity o f [facility] 00:00: MOUTH [place] 100 mg 00 EVERY 12 Medical capsule HOURS FOR Branch 7 DAYS Nitrofurant 2022- Yes TAKE 1 [facility] ers oin&Nit. 1-15 CAPSULE BY ity o f [facility] 00:00: MOUTH [place] 100 mg 00 EVERY 12 Medical capsule HOURS FOR Branch 7 DAYS Nitrofurant 2022- Yes TAKE 1 [facility] ers oin&Nit. 1-15 CAPSULE BY ity o f [facility] 00:00: MOUTH [place] 100 mg 00 EVERY 12 Medical capsule HOURS FOR Branch 7 DAYS Nitrofurant 2022- Yes TAKE 1 [facility] ers oin&Nit. 1-15 CAPSULE BY ity o f [facility] 00:00: MOUTH [place] 100 mg 00 EVERY 12 Medical capsule HOURS FOR Branch 7 DAYS Nitrofurant 2022- Yes TAKE 1 [facility] ers oin&Nit. 1-15 CAPSULE BY ity o f [facility] 00:00: MOUTH [place] 100 mg 00 EVERY 12 Medical capsule HOURS FOR Branch 7 DAYS Nitrofurant 2022- Yes TAKE 1 [facility] ers oin&Nit. 1-15 CAPSULE BY ity o f [facility] 00:00: MOUTH [place] 100 mg 00 EVERY 12 Medical capsule HOURS FOR Branch 7 DAYS Nitrofurant 2022- Yes TAKE 1 [facility] ers oin&Nit. 1-15 CAPSULE BY ity o f [facility] 00:00: MOUTH [place] 100 mg 00 EVERY 12 Medical capsule HOURS FOR Branch 7 DAYS Nitrofurant Yes TAKE 1 [facility] ers oin&Nit. 1-15 CAPSULE BY ity o f [facility] 00:00: MOUTH [place] 100 mg 00 EVERY 12 Medical capsule HOURS FOR Branch 7 DAYS Nitrofurant 2022- Yes TAKE 1 Univ ers oin&Nit. 1-15 [...] capsule HOURS FOR Branch 7 DAYS Nitrofurant 2022- Yes TAKE 1 [facility] ers oin&Nit. 1-15 [...] capsule HOURS FOR Branch 7 DAYS Nitrofurant 2022- Yes TAKE 1 [facility] ers oin&Nit. 1-15 [...] capsule HOURS FOR Branch 7 DAYS Nitrofurant 2022- Yes TAKE 1 [facility] ers oin&Nit. 1-15 [...] HOURS FOR Branch 7 DAYS Nitrofurant 2022-0 2022- No TAKE 1 Uni vers oin&Nit. 1-15 08-23 CAPSULE BY ity of [facility] 00:00: 00:00 MOUTH [place] 100 mg 00 :00 EVERY 12 Medical capsule HOURS FOR Branch 7 DAYS No known 2021-04 No No known Unive rs medications 1-17 medication it y of 10:28: s [place] 59 [facility] Branch doxycycline 2021-04- No [id number] 100mg Take 1 [facility] hyclate 100 -02 11-19 capsule by i ty of mg capsule 00:00: 05:59 mouth [place] 00 :00 every 12 Medical (twelve) Branch hours for 7 days. doxycycline 2021-04- No [id number] 100mg Take 1 [facility] hyclate 100 -11 11-19 capsule by i ty of mg capsule 00:00: 05:59 mouth [place] 00 :00 every 12 Medical (twelve) Branch hours for 7 days. doxycycline 2021-04- No [id number] 100mg Take 1 [facility] hyclate 100 -11 11-19 capsule by i ty of mg capsule 00:00: 05:59 mouth [place] 00 :00 every 12 Medical (twelve) Branch hours for 7 days. azithromyci 2021-04- No [id number] 1000mg Take 2 Univers n 1-10 11-11 04 tablets by ity of (ZITHROMAX) 00:00: 05:59 mouth once [place] 500 mg 00 :00 now for 1 Medical tablet dose. Branch azithromyci 2021-04- No [id number] 1000mg Take 2 Univers n 1-10 11-11 04 tablets by ity of (ZITHROMAX) 00:00: 05:59 mouth once [place] 500 mg 00 :00 now for 1 Medical tablet dose. Branch No known No Univers medications 3-31 ity of 16:12: [address] No known 2021-0 No Univers medications 3-31 ity of 16:12: [address] No known 0 No No known Unive rs medications 3-31 medication it y of 16:12: s [address] Immunizations Ordered Immunization Filled Immunization Date Status Commen ts Source Name Name [facility] 2022-10-07 Completed University of 00:00:00 [facility] TDAP 2022-10-07 Completed University of 00:00:00 [facility] TDAP 2022-10-07 Completed University of 00[facility]00:00 [facility] TDAP 2022-10-07 Completed University of 00:00:00 [facility] TDAP 2022-10-07 Completed University of 00:00:00 [facility] TDAP 2022-10-07 Completed University of 00:00:00 [facility] HPV9 2021-05-26 Completed University of 00:00:00 [facility] HPV9 2021-05-26 Completed University of 00:00:00 [facility] HPV9 2021-05-26 Completed University of 00:00:00 [facility] HPV9 2021-05-26 Completed University of 00:00:00 [facility] HPV9 2021-05-26 Completed University of 00:00:00 [facility] HPV9 2021-05-26 Completed University of 00:00:00 [facility] HPV9 2021-05-26 Completed University of 00:00:00 [facility] HPV9 2021-05-26 Completed University of 00:00:00 [facility] HPV9 2021-05-26 Completed University of 00:00:00 [facility] HPV9 2021-05-26 Completed University of 00:00:00 [facility] HPV9 2021-05-26 Completed University of 00:00:00 [facility] HPV9 2021-05-26 Completed University of 00:00:00 [facility] HPV9 2021-05-26 Completed University of 00:00:00 [facility] HPV9 2021-05-26 Completed University of 00:00:00 [place] [facility] HPV9 2021-05-26 Completed University of 00:00:00 [place] [facility] HPV9 2021-05-26 Completed University of 00:00:00 [place] [facility] HPV9 2021-05-26 Completed University of 00:00:00 [place] [facility] HPV9 2021-05-26 Completed University of 00:00:00 [place] [facility] HPV9 2021-05-26 Completed [facility] of 00:00:00 [place] [facility] HPV9 2021-05-26 Completed University of 00:00:00 [place] [facility] HPV9 2021-05-26 Completed University of 00:00:00 [place] [facility] HPV9 2021-05-26 Completed University of 00:00:00 [place] [facility] HPV9 2021-05-26 Completed University of 00:00:00 [place] [facility] HPV9 2021-05-26 Completed University of 00:00:00 [place] [facility] HPV9 2021-05-26 Completed [facility] of 00:00:00 [place] [facility] HPV9 2021-05-26 Completed University of 00:00:00 [place] [facility] HPV9 2021-05-26 Completed University of 00:00:00 [place] [facility] HPV9 2021-05-26 Completed [facility] of 00:00:00 [place] [facility] HPV9 2021-05-26 Completed University of 00:00:00 [place] [facility] HPV9 2021-05-26 Completed University of 00:00:00 [place] [facility] HPV9 2021-05-26 Completed University of 00:00:00 [place] [facility] HPV9 2021-05-26 Completed University of 00:00:00 [place] [facility] HPV9 2021-05-26 Completed University of 00:00:00 [place] [facility] HPV9 2021-05-26 Completed University of 00:00:00 [place] [facility] HPV9 2021-05-26 Completed University of 00:00:00 [place] [facility] HPV9 2021-05-26 Completed University of 00:00:00 [place] [facility] HPV9 2021-05-26 Completed University of 00:00:00 [place] [facility] HPV9 2021-05-26 Completed University of 00:00:00 [place] [facility] HPV9 2021-05-26 Completed University of 00:00:00 [place] [facility] HPV9 2021-05-26 Completed University of 00:00:00 [place] [facility] HPV9 2021-05-26 Completed University of 00:00:00 [place] [facility] HPV9 2021-05-26 Completed University of 00:00:00 [place] [facility] HPV9 2021-05-26 Completed University of 00:00:00 [place] [facility] HPV9 2021-05-26 Completed University of 00:00:00 [place] [facility] HPV9 2021-05-26 Completed University of 00:00:00 [place] [facility] HPV9 2021-05-26 Completed University of 00:00:00 [place] [facility] HPV9 2021-05-26 Completed University of 00:00:00 [place] [facility] HPV9 2021-05-26 Completed University of 00:00:00 [place] [facility] HPV9 2021-05-26 Completed University of 00:00:00 [place] [facility] HPV9 2021-05-26 Completed University of 00:00:00 [place] [facility] HPV9 2021-05-26 Completed University of 00:00:00 [place] [facility] HPV9 2021-05-26 Completed University of 00:00:00 [place] [facility] HPV9 2021-05-26 Completed University of 00:00:00 [place] [facility] HPV9 2021-05-26 Completed University of 00:00:00 [place] [facility] HPV9 2021-05-26 Completed University of 00:00:00 [place] [facility] HPV9 2021-05-26 Completed University of 00:00:00 [facility] HPV9 2021-05-26 Completed University of 00:00:00 [facility] HPV9 2021-05-26 Completed University of 00:00:00 [place] [facility] HPV9 2021-05-26 Completed University of 00:00:00 [place] [facility] HPV9 2021-05-26 Completed University of 00:00:00 [place] [facility] HPV9 2021-05-26 Completed University of 00:00:00 [facility] Influenza Virus 2020-03-16 Completed Universit y of Vaccine Quad .5 mL IM 00:00:00 [facility] Influenza Virus 2020-03-16 Completed Universit y of Vacc[facility] .5 mL IM 00:00:00 [facility] Influenza Virus 2020-03-16 Completed Universit y of [facility] .5 mL IM 00:00:00 [facility] Influenza Virus 2020-03-16 Completed Universit y of Vacc[facility] [place] .5 mL IM 00:00:00 [facility] Influenza Virus 2020-03-16 Completed Universit y of Vacc[facility] [place] .5 mL IM 00:00:00 [facility] Influenza Virus 2020-03-16 Completed Universit y of [facility] [place] .5 mL IM 00:00:00 [facility] Influenza Virus 2020-03-16 Completed Universit y of [facility] [place] .5 mL IM 00:00:00 [facility] Influenza Virus 2020-03-16 Completed Universit y of [facility] [place] .5 mL IM 00:00:00 [facility] Influenza Virus 2020-03-16 Completed Universit y of Vacc[facility] .5 mL IM 00:00:00 [facility] Influenza Virus 2020-03-16 Completed [facility]it y of Vacc[facility] .5 mL IM 00:00:00 [facility] Influenza Virus 2020-03-16 Completed Universit y of Vacc[facility] .5 mL IM 00:00:00 [facility] Influenza Virus 2020-03-16 Completed Universit y of [facility] [place] .5 mL IM 00:00:00 [facility] Influenza Virus 2020-03-16 Completed [facility]it y of [facility] [place] .5 mL IM 00:00:00 [facility] Influenza Virus 2020-03-16 Completed [facility]it y of [facility] [place] .5 mL IM 00:00:00 [facility] Influenza Virus 2020-03-16 Completed [facility]it y of [facility] [place] .5 mL IM 00:00:00 [facility] Influenza Virus 2020-03-16 Completed Universit y of [facility] .5 mL IM 00:00:00 [facility] Influenza Virus 2020-03-16 Completed Universit y of [facility] .5 mL IM 00:00:00 [facility] Influenza Virus 2020-03-16 Completed [facility]it y of [facility] [place] .5 mL IM 00:00:00 [facility] Influenza Virus 2020-03-16 Completed [facility]it y of [facility] [place] .5 mL IM 00:00:00 [facility] Influenza Virus 2020-03-16 Completed [facility]it y of Vacc[facility] [place] .5 mL IM 00:00:00 [facility] Influenza Virus 2020-03-16 Completed [facility]it y of [facility] [place] .5 mL IM 00:00:00 [facility] Influenza Virus 2020-03-16 Completed [facility]it y of [facility] [place] .5 mL IM 00:00:00 [facility] Influenza Virus 2020-03-16 Completed [facility] y of [facility] [place] .5 mL IM 00:00:00 [facility] Influenza Virus 2020-03-16 Completed [facility]it y of [facility] [place] .5 mL IM 00:00:00 [facility] Influenza Virus 2020-03-16 Completed [facility] y of [facility] [place] .5 mL IM 00:00:00 [facility] Influenza Virus 2020-03-16 Completed [facility]it y of [facility] [place] .5 mL IM 00:00:00 [facility] Influenza Virus 2020-03-16 Completed [facility]it y of [facility] [place] .5 mL IM 00:00:00 [facility] Influenza Virus 2020-03-16 Completed [facility]it y of [facility] [place] .5 mL IM 00:00:00 [facility] Influenza Virus 2020-03-16 Completed [facility]it y of [facility] [place] .5 mL IM 00:00:00 [facility] Influenza Virus 2020-03-16 Completed Universit y of [facility] [place] .5 mL IM 00:00:00 [facility] Influenza Virus 2020-03-16 Completed [facility]it y of [facility] [place] .5 mL IM 00:00:00 [facility] Influenza Virus 2020-03-16 Completed Universit y of Vacc[facility] [place] .5 mL IM 00:00:00 [facility] Influenza Virus 2020-03-16 Completed Universit y of [facility] [place] .5 mL IM 00:00:00 [facility] Influenza Virus 2020-03-16 Completed Universit y of [facility] [place] .5 mL IM 00:00:00 [facility] Influenza Virus 2020-03-16 Completed Universit y of [facility] [place] .5 mL IM 00:00:00 [facility] Influenza Virus 2020-03-16 Completed Universit y of [facility] [place] .5 mL IM 00:00:00 [facility] Influenza Virus 2020-03-16 Completed Universit y of [facility] [place] .5 mL IM 00:00:00 [facility] Influenza Virus 2020-03-16 Completed Universit y of [facility] [place] .5 mL IM 00:00:00 [facility] Influenza Virus 2020-03-16 Completed Universit y of [facility] .5 mL IM 00:00:00 [facility] Influenza Virus 2020-03-16 Completed [facility]it y of [facility] .5 mL IM 00:00:00 [facility] Influenza Virus 2020-03-16 Completed Universit y of [facility] .5 mL IM 00:00:00 [facility] Influenza Virus 2020-03-16 Completed [facility]it y of Vaccine [facility] .5 mL IM 00:00:00 [facility] Influenza Virus 2020-03-16 Completed Universit y of Vaccine [facility] .5 mL IM 00:00:00 [facility] Influenza Virus 2020-03-16 Completed [facility]it y of Vaccine [facility] .5 mL IM 00:00:00 [facility] Influenza Virus 2020-03-16 Completed Universit y of Vaccine [facility] .5 mL IM 00:00:00 [facility] Influenza Virus 2020-03-16 Completed [facility]it y of Vaccine [facility] .5 mL IM 00:00:00 [facility] Influenza Virus 2020-03-16 Completed [facility]it y of Vaccine [facility] .5 mL IM 00:00:00 [facility] Influenza Virus 2020-03-16 Completed [facility]it y of Vaccine [facility] .5 mL IM 00:00:00 [facility] Influenza Virus 2020-03-16 Completed [facility]it y of Vaccine [facility] .5 mL IM 00:00:00 [facility] Influenza Virus 2020-03-16 Completed [facility]it y of Vaccine [facility] .5 mL IM 00:00:00 [facility] Influenza Virus 2020-03-16 Completed [facility]it y of Vaccine [facility] .5 mL IM 00:00:00 [facility] Influenza Virus 2020-03-16 Completed [facility]it y of Vaccine [facility] .5 mL IM 00:00:00 [facility] Influenza Virus 2020-03-16 Completed [facility]it y of Vaccine [place] .5 mL IM 00:00:00 [facility] Influenza Virus 2020-03-16 Completed [facility]it y of Vaccine [facility] .5 mL IM 00:00:00 [facility] Influenza Virus 2020-03-16 Completed [facility]it y of Vaccine [facility] .5 mL IM 00:00:00 [facility] Influenza Virus 2020-03-16 Completed [facility]it y of Vaccine [facility] .5 mL IM 00:00:00 [facility] Influenza Virus 2020-03-16 Completed Universit y of Vaccine [facility] .5 mL IM 00:00:00 [facility] Influenza Virus 2020-03-16 Completed [facility]it y of Vaccine [facility] .5 mL IM 00:00:00 [facility] Influenza Virus 2020-03-16 Completed [facility]it y of Vaccine [facility] .5 mL IM 00:00:00 [facility] Influenza Virus 2020-03-16 Completed Universit y of Vaccine [facility] .5 mL IM 00:00:00 [facility] Influenza Virus 2020-03-16 Completed Universit y of Vaccine [facility] .5 mL IM 00:00:00 [facility] HPV9 2018-09-07 Completed University of 00:00:00 [place] [facility] HPV9 2018-09-07 Completed University of 00:00:00 [place] [facility] HPV9 2018-09-07 Completed University of 00:00:00 [place] [facility] HPV9 2018-09-07 Completed University of 00:00:00 [place] [facility] HPV9 2018-09-07 Completed University of 00:00:00 [place] [facility] HPV9 2018-09-07 Completed University of 00:00:00 [place] [facility] HPV9 2018-09-07 Completed University of 00:00:00 [place] [facility] HPV9 2018-09-07 Completed University of 00:00:00 [place] [facility] HPV9 2018-09-07 Completed University of 00:00:00 [place] [facility] HPV9 2018-09-07 Completed University of 00:00:00 [place] [facility] HPV9 2018-09-07 Completed University of 00:00:00 [place] [facility] HPV9 2018-09-07 Completed University of 00:00:00 [place] [facility] HPV9 2018-09-07 Completed University of 00:00:00 [place] [facility] HPV9 2018-09-07 Completed University of 00:00:00 [place] [facility] HPV9 2018-09-07 Completed University of 00:00:00 [place] [facility] HPV9 2018-09-07 Completed University of 00:00:00 [place] [facility] HPV9 2018-09-07 Completed University of 00:00:00 [place] [facility] HPV9 2018-09-07 Completed University of 00:00:00 [place] [facility] HPV9 2018-09-07 Completed University of 00:00:00 [place] [facility] HPV9 2018-09-07 Completed University of 00:00:00 [place] [facility] HPV9 2018-09-07 Completed University of 00:00:00 [place] [facility] HPV9 2018-09-07 Completed University of 00:00:00 [place] [facility] HPV9 2018-09-07 Completed University of 00:00:00 [place] [facility] HPV9 2018-09-07 Completed University of 00:00:00 [place] [facility] HPV9 2018-09-07 Completed University of 00:00:00 [place] [facility] HPV9 2018-09-07 Completed University of 00:00:00 [place] [facility] HPV9 2018-09-07 Completed University of 00:00:00 [place] [facility] HPV9 2018-09-07 Completed University of 00:00:00 [place] [facility] HPV9 2018-09-07 Completed University of 00:00:00 [place] [facility] HPV9 2018-09-07 Completed University of 00:00:00 [place] [facility] HPV9 2018-09-07 Completed University of 00:00:00 [place] [facility] HPV9 2018-09-07 Completed [facility] of 00:00:00 [place] [facility] HPV9 2018-09-07 Completed [facility] 00:00:00 [facility] HPV9 2018-09-07 Completed [facility] 00:00:00 [facility] HPV9 2018-09-07 Completed [facility] 00:00:00 [facility] HPV9 2018-09-07 Completed [facility] 00:00:00 [facility] HPV9 2018-09-07 Completed [facility] 00:00:00 [facility] HPV9 2018-09-07 Completed [facility] 00:00:00 [facility] HPV9 2018-09-07 Completed [facility] 00:00:00 [facility] HPV9 2018-09-07 Completed [facility] 00:00:00 [facility] HPV9 2018-09-07 Completed [facility] 00:00:00 [facility] HPV9 2018-09-07 Completed [facility] 00:00:00 [facility] HPV9 2018-09-07 Completed [facility] 00:00:00 [facility] HPV9 2018-09-07 Completed [facility] 00:00:00 [facility] HPV9 2018-09-07 Completed [facility] 00:00:00 [facility] HPV9 2018-09-07 Completed [facility] 00:00:00 [facility] HPV9 2018-09-07 Completed [facility] 00:00:00 [facility] HPV9 2018-09-07 Completed [facility] 00:00:00 [facility] HPV9 2018-09-07 Completed [facility] 00:00:00 [facility] HPV9 2018-09-07 Completed [facility] 00:00:00 [facility] HPV9 2018-09-07 Completed [facility] 00:00:00 [facility] HPV9 2018-09-07 Completed [facility] 00:00:00 [facility] HPV9 2018-09-07 Completed [facility] 00:00:00 [facility] HPV9 2018-09-07 Completed [facility] 00:00:00 [facility] HPV9 2018-09-07 Completed [facility] 00:00:00 [facility] HPV9 2018-09-07 Completed [facility] 00:00:00 [facility] HPV9 2018-09-07 Completed [facility] 00:00:00 [facility] HPV9 2018-09-07 Completed [facility] 00:00:00 [facility] HPV9 2018-09-07 Completed [facility] 00:00:00 [facility] HPV9 2018-09-07 Completed [facility] 00:00:00 [facility] HPV9 2018-09-07 Completed [facility] 00:00:00 [facility] HPV9 2018-07-03 Completed [facility] 00:00:00 [facility] HPV9 2018-07-03 Completed [facility] 00:00:00 [facility] HPV9 2018-07-03 Completed [facility] 00:00:00 [facility] HPV9 2018-07-03 Completed [facility] 00:00:00 [facility] HPV9 2018-07-03 Completed [facility] 00:00:00 [facility] HPV9 2018-07-03 Completed [facility] 00:00:00 [facility] HPV9 2018-07-03 Completed [facility] 00:00:00 [facility] HPV9 2018-07-03 Completed [facility] 00:00:00 [facility] HPV9 2018-07-03 Completed [facility] 00:00:00 [facility] HPV9 2018-07-03 Completed [facility] 00:00:00 [facility] HPV9 2018-07-03 Completed [facility] 00:00:00 [facility] HPV9 2018-07-03 Completed [facility] 00:00:00 [facility] HPV9 2018-07-03 Completed [facility] 00:00:00 [facility] HPV9 2018-07-03 Completed [facility] 00:00:00 [facility] HPV9 2018-07-03 Completed [facility] 00:00:00 [facility] HPV9 2018-07-03 Completed [facility] 00:00:00 [facility] HPV9 2018-07-03 Completed [facility] 00:00:00 [facility] HPV9 2018-07-03 Completed [facility] 00:00:00 [facility] HPV9 2018-07-03 Completed [facility] 00:00:00 [facility] HPV9 2018-07-03 Completed [facility] 00:00:00 [facility] HPV9 2018-07-03 Completed [facility] 00:00:00 [facility] HPV9 2018-07-03 Completed [facility] 00:00:00 [facility] HPV9 2018-07-03 Completed [facility] 00:00:00 [facility] HPV9 2018-07-03 Completed [facility] 00:00:00 [facility] HPV9 2018-07-03 Completed [facility] 00:00:00 [facility] HPV9 2018-07-03 Completed [facility] 00:00:00 [facility] HPV9 2018-07-03 Completed [facility] 00:00:00 [facility] HPV9 2018-07-03 Completed [facility] 00:00:00 [facility] HPV9 2018-07-03 Completed [facility] 00:00:00 [facility] HPV9 2018-07-03 Completed [facility] 00:00:00 [facility] HPV9 2018-07-03 Completed [facility] 00:00:00 [facility] HPV9 2018-07-03 Completed [facility] 00:00:00 [facility] HPV9 2018-07-03 Completed [facility] 00:00:00 [facility] HPV9 2018-07-03 Completed [facility] 00:00:00 [facility] HPV9 2018-07-03 Completed [facility] 00:00:00 [facility] HPV9 2018-07-03 Completed [facility] 00:00:00 [facility] HPV9 2018-07-03 Completed [facility] 00:00:00 [facility] HPV9 2018-07-03 Completed [facility] 00:00:00 [facility] HPV9 2018-07-03 Completed [facility] 00:00:00 [facility] HPV9 2018-07-03 Completed [facility] 00:00:00 [facility] HPV9 2018-07-03 Completed [facility] 00:00:00 [facility] HPV9 2018-07-03 Completed [facility] 00:00:00 [facility] HPV9 2018-07-03 Completed [facility] 00:00:00 [facility] HPV9 2018-07-03 Completed [facility] 00:00:00 [facility] HPV9 2018-07-03 Completed [facility] 00:00:00 [facility] HPV9 2018-07-03 Completed [facility] 00:00:00 [facility] HPV9 2018-07-03 Completed [facility] 00:00:00 [facility] HPV9 2018-07-03 Completed [facility] 00:00:00 [facility] HPV9 2018-07-03 Completed [facility] 00:00:00 [facility] HPV9 2018-07-03 Completed [facility] 00:00:00 [facility] HPV9 2018-07-03 Completed [facility] 00:00:00 [facility] HPV9 2018-07-03 Completed [facility] 00:00:00 [facility] HPV9 2018-07-03 Completed [facility] 00:00:00 [facility] HPV9 2018-07-03 Completed [facility] 00:00:00 [facility] HPV9 2018-07-03 Completed [facility] 00:00:00 [facility] HPV9 2018-07-03 Completed [facility] 00:00:00 [facility] HPV9 2018-07-03 Completed [facility] 00:00:00 [facility] HPV9 2018-07-03 Completed [facility] 00:00:00 [facility] HPV9 2018-07-03 Completed [facility] 00:00:00 [facility] HPV9 2018-07-03 Completed [facility] 00:00:00 [facility] HPV9 2018-07-03 Completed [facility] 00:00:00 [facility] Influenza Virus 2017-01-01 Completed [facility] .5 mL IM 00:00:00 [facility] Influenza Virus 2017-01-01 Completed [facility] .5 mL IM 00:00:00 [facility] Influenza Virus 2017-01-01 Completed [facility] .5 mL IM 00:00:00 [facility] Influenza Virus 2017-01-01 Completed [facility] .5 mL IM 00:00:00 [facility] Influenza Virus 2017-01-01 Completed [facility] .5 mL IM 00:00:00 [facility] Influenza Virus 2017-01-01 Completed [facility] .5 mL IM 00:00:00 [facility] HEPATITIS A 2011-11-30 Completed [facility] 00:00:00 [facility] HPV 2011-11-30 Completed [facility] 00:00:00 [facility] Meningococcal 2011-11-30 Completed [facility] Polysaccharide 00:00:00 [place] [facility] (groups A, C, Y and Branc h W-135) conjugate vaccine (MCV4P) TDAP 2011-11-30 Completed [facility] 00:00:00 [facility] Varicella 2011-11-30 Completed [facility] of (varivax)(chicken 00:00:00 [place] [facility] pox[facility] HEPATITIS A 2011-11-30 Completed [facility] 00:00:00 [facility] HPV 2011-11-30 Completed [facility] 00:00:00 [facility] Meningococcal 2011-11-30 Completed [facility] Polysaccharide 00:00:00 [place] [facility] (groups A, C, Y and Branc h W-135) conjugate vaccine (MCV4P) TDAP 2011-11-30 Completed [facility] 00:00:00 [facility] Varicella 2011-11-30 Completed [facility] (varivax)(chicken 00:00:00 [place] [facility] HEPATITIS A 2011-11-30 Completed [facility] 00:00:00 [facility] HPV 2011-11-30 Completed [facility] 00:00:00 [facility] Meningococcal 2011-11-30 Completed [facility] Polysaccharide 00:00:00 [place] [facility] (groups A, C, Y and Branc h W-135) conjugate vaccine (MCV4P) TDAP 2011-11-30 Completed [facility] 00:00:00 [facility] Varicella 2011-11-30 Completed [facility] (varivax)(chicken 00:00:00 [place] [facility] HEPATITIS A 2011-11-30 Completed [facility] 00:00:00 [facility] HPV 2011-11-30 Completed [facility] 00:00:00 [facility] Meningococcal 2011-11-30 Completed [facility] Polysaccharide 00:00:00 [place] [facility] (groups A, C, Y and Branc h W-135) conjugate vaccine (MCV4P) TDAP 2011-11-30 Completed [facility] 00:00:00 [facility] Varicella 2011-11-30 Completed [facility] (varivax)(chicken 00:00:00 [place] [facility]ox[facility] HEPATITIS A 2011-11-30 Completed [facility] 00:00:00 [facility] HPV 2011-11-30 Completed [facility] 00:00:00 [facility] Meningococcal 2011-11-30 Completed [facility] Polysaccharide 00:00:00 [place] [facility] (groups A, C, Y and Branc h W-135) conjugate vaccine (MCV4P) TDAP 2011-11-30 Completed [facility] 00:00:00 [facility] Varicella 2011-11-30 Completed [facility] (varivax)(chicken 00:00:00 [place] [facility]ox[facility] HEPATITIS A 2011-11-30 Completed [facility] 00:00:00 [facility] HPV 2011-11-30 Completed [facility] 00:00:00 [facility] Meningococcal 2011-11-30 Completed [facility] of Polysaccharide 00:00:00 [facility] alysha (groups A, C, Y and Branc h W-135) conjugate vaccine (MCV4P) TDAP 2011-11-30 Completed [facility] 00:00:00 [facility] Varicella 2011-11-30 Completed [facility] of (varivax)(chicken 00:00:00 [place] [facility] DTaP, Unspecified 2003-03-18 Completed Univers ity of Formulation 00:00:00 [facility] MMR 2003-03-18 Completed [facility] of 00:00:00 [facility] IPV 2003-03-18 Completed [facility] of 00:00:00 [facility] DTaP, Unspecified 2003-03-18 Completed Univers ity of Formulation 00:00:00 [facility] MMR 2003-03-18 Completed [facility] of 00:00:00 [facility] IPV 2003-03-18 Completed [facility] 00:00:00 [facility] DTaP, Unspecified 2003-03-18 Completed Univers ity of Formulation 00:00:00 [facility] MMR 2003-03-18 Completed [facility] of 00:00:00 [facility] IPV 2003-03-18 Completed [facility] 00:00:00 [facility] DTaP, Unspecified 2003-03-18 Completed Univers ity of Formulation 00:00:00 [facility] MMR 2003-03-18 Completed [facility] 00:00:00 [facility] IPV 2003-03-18 Completed [facility] 00:00:00 [facility] DTaP, Unspecified 2003-03-18 Completed Univers ity of Formulation 00:00:00 [facility] MMR 2003-03-18 Completed [facility] 00:00:00 [facility] IPV 2003-03-18 Completed [facility] 00:00:00 [facility] DTaP, Unspecified 2003-03-18 Completed Univers ity of Formulation 00:00:00 [facility] MMR 2003-03-18 Completed [facility] 00:00:00 [facility] IPV 2003-03-18 Completed [facility] 00:00:00 [facility] DTaP, Unspecified 2001-01-01 Completed Univers ity of Formulation 00:00:00 [facility] DTaP, Unspecified 2001-01-01 Completed Univers ity of Formulation 00:00:00 [facility] DTaP, Unspecified 2001-01-01 Completed Univers ity of Formulation 00:00:00 [facility] DTaP, Unspecified 2001-01-01 Completed Univers ity of Formulation 00:00:00 [facility] DTaP, Unspecified 2001-01-01 Completed Univers ity of Formulation 00:00:00 [facility] DTaP, Unspecified 2001-01-01 Completed Univers ity of Formulation 00:00:00 [facility] Hib-HbOC 2000-05-18 Completed [facility] 00:00:00 [facility] MMR 2000-05-18 Completed [facility] 00:00:00 [facility] Hib-HbOC 2000-05-18 Completed [facility] 00:00:00 [facility] MMR 2000-05-18 Completed [facility] 00:00:00 [facility] Hib-HbOC 2000-05-18 Completed [facility] 00:00:00 [facility] MMR 2000-05-18 Completed [facility] 00:00:00 [facility] Hib-HbOC 2000-05-18 Completed [facility] 00:00:00 [facility] MMR 2000-05-18 Completed [facility] 00:00:00 [facility] Hib-HbOC 2000-05-18 Completed [facility] 00:00:00 [facility] MMR 2000-05-18 Completed [facility] of 00:00:00 [facility] Hib-HbOC 2000-05-18 Completed [facility] of 00:00:00 [facility] MMR 2000-05-18 Completed [facility] of 00:00:00 [facility] Hep B, Adol or Pedi 1999-12-22 Completed Unive rsity of Dosage 00:00:00 [facility] IPV 1999-12-22 Completed [facility] of 00:00:00 [facility] Varicella 1999-12-22 Completed [facility] (varivax)(chicken 00:00:00 [place] [facility] Hep B, Adol or Pedi 1999-12-22 Completed Unive rsity of Dosage 00:00:00 [facility] IPV 1999-12-22 Completed [facility] of 00:00:00 [facility] Varicella 1999-12-22 Completed [facility] of (varivax)(chicken 00:00:00 [place] [facility] Hep B, Adol or Pedi 1999-12-22 Completed Unive rsity of Dosage 00:00:00 [facility] IPV 1999-12-22 Completed [facility] of 00:00:00 [facility] Varicella 1999-12-22 Completed [facility] of (varivax)(chicken 00:00:00 [place] [facility] Hep B, Adol or Pedi 1999-12-22 Completed Unive rsity of Dosage 00:00:00 [facility] IPV 1999-12-22 Completed [facility] of 00:00:00 [facility] Varicella 1999-12-22 Completed [facility] of (varivax)(chicken 00:00:00 [place] [facility] Hep B, Adol or Pedi 1999-12-22 Completed Unive rsity of Dosage 00:00:00 [facility] IPV 1999-12-22 Completed [facility] of 00:00:00 [facility] Varicella 1999-12-22 Completed [facility] of (varivax)(chicken 00:00:00 [place] [facility] Hep B, Adol or Pedi 1999-12-22 Completed Unive rsity of Dosage 00:00:00 [facility] IPV 1999-12-22 Completed [facility] of 00:00:00 [facility] Varicella 1999-12-22 Completed [facility] of (varivax)(chicken 00:00:00 [place] [facility] Hep B, Adol or Pedi 1999-09-21 Completed Unive rsity of Dosage 00:00:00 [facility] Hep B, Adol or Pedi 1999-09-21 Completed Unive rsity of Dosage 00:00:00 [facility] Hep B, Adol or Pedi 1999-09-21 Completed Unive rsity of Dosage 00:00:00 [facility] Hep B, Adol or Pedi 1999-09-21 Completed Unive rsity of Dosage 00:00:00 [facility] Hep B, Adol or Pedi 1999-09-21 Completed Unive rsity of Dosage 00:00:00 [facility] Hep B, Adol or Pedi 1999-09-21 Completed Unive rsity of Dosage 00:00:00 [facility] DTaP, Unspecified 1999-06-24 Completed Univers ity of Formulation 00:00:00 [facility] Hep B, Adol or Pedi 1999-06-24 Completed Unive rsity of Dosage 00:00:00 [facility] Hib-HbOC 1999-06-24 Completed [facility] of 00:00:00 [facility] DTaP, Unspecified 1999-06-24 Completed Univers ity of Formulation 00:00:00 [facility] Hep B, Adol or Pedi 1999-06-24 Completed Unive rsity of Dosage 00:00:00 [facility] Hib-HbOC 1999-06-24 Completed [facility] of 00:00:00 [facility] DTaP, Unspecified 1999-06-24 Completed Univers ity of Formulation 00:00:00 [facility] Hep B, Adol or Pedi 1999-06-24 Completed Unive rsity of Dosage 00:00:00 [facility] Hib-HbOC 1999-06-24 Completed [facility] of 00:00:00 [facility] DTaP, Unspecified 1999-06-24 Completed Univers ity of Formulation 00:00:00 [facility] Hep B, Adol or Pedi 1999-06-24 Completed Unive rsity of Dosage 00:00:00 [facility] Hib-HbOC 1999-06-24 Completed [facility] of 00:00:00 [facility] DTaP, Unspecified 1999-06-24 Completed Univers ity of Formulation 00:00:00 [facility] Hep B, Adol or Pedi 1999-06-24 Completed Unive rsity of Dosage 00:00:00 [facility] Hib-HbOC 1999-06-24 Completed [facility] of 00:00:00 [facility] DTaP, Unspecified 1999-06-24 Completed Univers ity of Formulation 00:00:00 [facility] Hep B, Adol or Pedi 1999-06-24 Completed Unive rsity of Dosage 00:00:00 [facility] Hib-HbOC 1999-06-24 Completed [facility] of 00:00:00 [facility] DTaP, Unspecified 1999-04-26 Completed Univers ity of Formulation 00:00:00 [facility] Hib-HbOC 1999-04-26 Completed [facility] of 00:00:00 [facility] IPV 1999-04-26 Completed [facility] of 00:00:00 [facility] DTaP, Unspecified 1999-04-26 Completed Univers ity of Formulation 00:00:00 [facility] Hib-HbOC 1999-04-26 Completed [facility] of 00:00:00 [facility] IPV 1999-04-26 Completed [facility] of 00:00:00 [facility] DTaP, Unspecified 1999-04-26 Completed Univers ity of Formulation 00:00:00 [facility] Hib-HbOC 1999-04-26 Completed [facility] of 00:00:00 [facility] IPV 1999-04-26 Completed [facility] of 00:00:00 [facility] DTaP, Unspecified 1999-04-26 Completed Univers ity of Formulation 00:00:00 [facility] Hib-HbOC 1999-04-26 Completed [facility] of 00:00:00 [facility] IPV 1999-04-26 Completed [facility] of 00:00:00 [facility] DTaP, Unspecified 1999-04-26 Completed Univers ity of Formulation 00:00:00 [facility] Hib-HbOC 1999-04-26 Completed [facility] of 00:00:00 [facility] IPV 1999-04-26 Completed [facility] of 00:00:00 [facility] DTaP, Unspecified 1999-04-26 Completed Univers ity of Formulation 00:00:00 [facility] Hib-HbOC 1999-04-26 Completed [facility] of 00:00:00 [facility] IPV 1999-04-26 Completed [facility] of 00:00:00 [facility] DTaP, Unspecified 1999-02-18 Completed Univers ity of Formulation 00:00:00 [facility] Hib-HbOC 1999-02-18 Completed [facility] of 00:00:00 [facility] IPV 1999-02-18 Completed [facility] of 00:00:00 [facility] DTaP, Unspecified 1999-02-18 Completed Univers ity of Formulation 00:00:00 [facility] Hib-HbOC 1999-02-18 Completed [facility] of 00:00:00 [facility] IPV 1999-02-18 Completed [facility] of 00:00:00 [facility] DTaP, Unspecified 1999-02-18 Completed Univers ity of Formulation 00:00:00 [facility] Hib-HbOC 1999-02-18 Completed [facility] of 00:00:00 [facility] IPV 1999-02-18 Completed [facility] of 00:00:00 [facility] DTaP, Unspecified 1999-02-18 Completed Univers ity of Formulation 00:00:00 [facility] Hib-HbOC 1999-02-18 Completed [facility] of 00:00:00 [facility] IPV 1999-02-18 Completed [facility] of 00:00:00 [facility] DTaP, Unspecified 1999-02-18 Completed Univers ity of Formulation 00:00:00 [facility] Hib-HbOC 1999-02-18 Completed [facility] of 00:00:00 [facility] IPV 1999-02-18 Completed [facility] of 00:00:00 [facility] DTaP, Unspecified 1999-02-18 Completed Univers ity of Formulation 00:00:00 [facility] Hib-HbOC 1999-02-18 Completed [facility] of 00:00:00 [facility] IPV 1999-02-18 Completed [facility] of 00:00:00 [facility] Vital Signs Vital Name Observation Time Observation Value Comments Source Systolic blood 2022-11-23 16:02:00 128 mm[Hg] Univer sity of pressure [facility] Diastolic blood 2022-11-23 16:02:00 75 mm[Hg] Unive rsity of pressure [facility] Heart rate 2022-11-23 16:02:00 88 /min [facility] Body temperature 2022-11-23 16:02:00 36.06 Gin [facility] 2022-11-23 16:02:00 20 /min [facility] 2022-11-23 16:02:[facility] Body weight 2022-11-23 16:02:00 120.77 kg [facility] BMI 2022-11-23 16:02:00 39.32 kg/m2 [facility] Systolic blood 2022-11-09 12:53:00 120 mm[Hg] Univer [facility]ity of pressure [facility] Diastolic blood 2022-11-09 12:53:00 74 mm[Hg] Unive rsity of pressure [facility] Heart rate 2022-11-09 12:53:00 95 /min [facility] Body temperature 2022-11-09 12:53:00 36.39 Gin [facility] Respiratory rate 2022-11-09 12:53:00 20 /min [facility] Body height 2022-11-09 12:53:00 175.3 cm [facility] Body weight 2022-11-09 12:53:00 121.745 kg [facility] BMI 2022-11-09 12:53:00 39.64 kg/m2 [facility] Systolic blood 2022-10-21 15:56:00 129 mm[Hg] [facility] of pressure [facility] Diastolic blood 2022-10-21 15:56:00 78 mm[Hg] Unive rsity of pressure [facility] Heart rate 2022-10-21 15:56:00 101 /min [facility] Body temperature 2022-10-21 15:56:00 35.5 Gin [facility] Respiratory rate 2022-10-21 15:56:00 18 /min [facility] Body height 2022-10-21 15:56:00 175.3 cm [facility] Body weight 2022-10-21 15:56:00 120.022 kg [facility] BMI 2022-10-21 15:56:00 39.07 kg/m2 [facility] Systolic blood 2022-10-07 14:59:00 122 mm[Hg] [facility] Diastolic blood 2022-10-07 14:59:00 70 mm[Hg] [facility] Heart rate 2022-10-07 14:59:00 103 /min [facility] Body temperature 2022-10-07 14:59:00 35.78 Gin [facility] Respiratory rate 2022-10-07 14:59:00 18 /min [facility] Body height 2022-10-07 14:59:00 175.3 cm [facility] Body weight 2022-10-07 14:59:00 119.886 kg [facility] BMI 2022-10-07 14:59:00 39.03 kg/m2 [facility] Systolic blood 2022-09-23 16:10:00 125 mm[Hg] [facility] Diastolic blood 2022-09-23 16:10:00 76 mm[Hg] [facility] Heart rate 2022-09-23 16:10:00 100 /min [facility] Body temperature 2022-09-23 16:10:00 36 Gin [facility] Respiratory rate 2022-09-23 16:10:00 18 /min [facility] Body height 2022-09-23 16:10:00 175.3 cm [facility] Body weight 2022-09-23 16:10:00 119.659 kg [facility] BMI 2022-09-23 16:10:00 38.96 kg/m2 [facility] Systolic blood 2022-08-17 15:24:00 132 mm[Hg] [facility] Diastolic blood 2022-08-17 15:24:00 73 mm[Hg] [facility] Heart rate 2022-08-17 15:24:00 90 /min [facility] Body temperature 2022-08-17 15:24:00 35.83 Gin [facility] Respiratory rate 2022-08-17 15:24:00 18 /min [facility] Body height 2022-08-17 15:24:00 175.3 cm [facility] Body weight 2022-08-17 15:24:00 115.35 kg [facility] BMI 2022-08-17 15:24:00 37.55 kg/m2 [facility] Systolic blood 2022-07-21 14:43:00 130 mm[Hg] [facility] Diastolic blood 2022-07-21 14:43:00 71 mm[Hg] [facility] Heart rate 2022-07-21 14:43:00 97 /min [facility] Body temperature 2022-07-21 14:43:00 36.89 Gin [facility] Respiratory rate 2022-07-21 14:43:00 17 /min [facility] Body height 2022-07-21 14:43:00 175.3 cm [facility] Body weight 2022-07-21 14:43:00 114.851 kg [facility] BMI 2022-07-21 14:43:00 37.39 kg/m2 [facility] Systolic blood 2022-06-22 15:09:00 134 mm[Hg] [facility] Diastolic blood 2022-06-22 15:09:00 90 mm[Hg] [facility] Heart rate 2022-06-22 15:09:00 98 /min [facility] Body temperature 2022-06-22 15:09:00 37.06 Gin [facility] Respiratory rate 2022-06-22 15:09:00 18 /min [facility] Body height 2022-06-22 15:09:00 175.3 cm [facility] Body weight 2022-06-22 15:09:00 109.816 kg [facility] BMI 2022-06-22 15:09:00 35.75 kg/m2 [facility] Systolic blood 2022-05-25 15:32:00 119 mm[Hg] [facility] Diastolic blood 2022-05-25 15:32:00 69 mm[Hg] [facility] Heart rate 2022-05-25 15:32:00 81 /min [facility] Body temperature 2022-05-25 15:32:00 36.28 Gin [facility] Respiratory rate 2022-05-25 15:32:00 18 /min [facility] Body height 2022-05-25 15:32:00 175.3 cm [facility] Body weight 2022-05-25 15:32:00 111.721 kg [facility] BMI 2022-05-25 15:32:00 36.37 kg/m2 [facility] Systolic blood 2022-04-27 15:52:00 136 mm[Hg] [facility] Diastolic blood 2022-04-27 15:52:00 79 mm[Hg] [facility] Heart rate 2022-04-27 15:52:00 98 /min [facility] Body temperature 2022-04-27 15:52:00 36.28 Gin [facility] Respiratory rate 2022-04-27 15:52:00 18 /min [facility] Body height 2022-04-27 15:52:00 175.3 cm [facility] Body weight 2022-04-27 15:52:00 109.856 kg [facility] BMI 2022-04-27 15:52:00 35.76 kg/m2 [facility] Systolic blood 2022-02-17 15:46:00 131 mm[Hg] [facility] Diastolic blood 2022-02-17 15:46:00 80 mm[Hg] [facility] Heart rate 2022-02-17 15:46:00 104 /min [facility] Body temperature 2022-02-17 15:46:00 36.94 Gin [facility] Respiratory rate 2022-02-17 15:46:00 18 /min [facility] Body weight 2022-02-17 15:46:00 108.455 kg [facility] BMI 2022-02-17 15:46:00 35.31 kg/m2 [facility] Systolic blood 2022-02-10 21:46:00 121 mm[Hg] [facility] Diastolic blood 2022-02-10 21:46:00 69 mm[Hg] [facility]ive [facility] Heart rate 2022-02-10 21:46:00 92 /min [facility] Body temperature 2022-02-10 21:46:00 36.11 Gin Univ ersity of [facility] Respiratory rate 2022-02-10 21:46:00 18 /min Univ ersity of [facility] Body height 2022-02-10 21:46:00 175.3 cm [facility] Body weight 2022-02-10 21:46:00 109.77 kg Universi ty of [facility] BMI 2022-02-10 21:46:00 35.74 kg/m2 Universi ty of [facility] Systolic blood 2021-06-30 14:10:00 116 mm[Hg] Univer sity of pressure [facility] Diastolic blood 2021-06-30 14:10:00 66 mm[Hg] Unive rsity of pressure [facility] Heart rate 2021-06-30 14:10:00 96 /min [facility] Body temperature 2021-06-30 14:10:00 36.33 Gin Univ ersity of [facility] Respiratory rate 2021-06-30 14:10:00 18 /min Univ ersity of [facility] Body height 2021-06-30 14:10:00 175.3 cm [facility] Body weight 2021-06-30 14:10:00 112.129 kg [facility]i ty of [facility] BMI 2021-06-30 14:10:00 36.51 kg/m2 [facility] of [facility] Procedures Procedure Date / Time Performing Clinician Source Performed POCT URINALYSIS 2022-11-23 16:05:00 Vani Montoya [facility] ity [facility] POCT URINALYSIS 2022-11-09 00:00:00 Vani Montoya [facility] POCT URINALYSIS 2022-10-21 15:58:00 Vani Montoya [facility] TDAP VACCINE, >11 YRS, 2022-10-07 15:19:25 Vani Montoya [facility] POCT URINALYSIS 2022-10-07 15:02:00 Vani Montoya [facility] POCT URINALYSIS 2022-09-23 16:18:00 Vani Montoya [facility] POCT URINALYSIS 2022-08-17 15:26:00 Vani Montoya [facility] POCT URINALYSIS 2022-07-21 00:00:00 Vani Montoya [facility] TRICHOMONAS AMPLIFIED 2022-06-28 18:13:00 [facility] 2022-06-23 14:50:00 Vani Montoya [facility] POCT URINALYSIS 2022-06-22 15:09:00 Vani Montoya [facility] CONSENT/REFUSAL FOR 2022-06-22 14:48:52 Doctor Unassigned, No [facility] [place] [facility] POCT URINALYSIS 2022-05-25 15:34:00 Vani Montoya [facility] GC & CHLAMYDIA AMPLIFIED 2022-05-09 20:54:00 Vani Montoya [facility] TRICHOMONAS AMPLIFIED 2022-05-09 20:54:00 [facility] PO[facility] W/O 2022-04-27 15:45:00 Vani Montoya [facility] [place] [facility]CIFIC [facility] POCT TEST 2022-04-27 15:44:00 [facility] OF 2022-04-27 06:01:00 Doctor Unassigned, No Un iversity of [facility] POCT TEST 2022-02-17 15:48:00 Vani Montoya Uni versity of [facility] POCT TEST 2022-02-10 00:00:00 Simona Aparicio [facility] ersity of [facility] BCCS-RELATED 2022-01-19 05:01:00 Doctor Unassigned, No Domingaer [facility] DOCUMENTATION Name [facility] [place] BI ULTRASOUND BREAST 2021-09-22 18:30:10 Vani Montoya [facility] COMPLETE LEFT [facility] Encounters Start End Encounter Admission Attending Care Care Encounter Source Date/Time Date/Time Type Type Clinicians Facility Department ID 2021-02-02 Emergency [facility] [id number] Univers 06:13:19 ity of [facility] 2021-01-30 Emergency [facility] [id number] Univers 14:34:27 ity of [facility] 2022-11-30 2022-11-30 Outpatient R JAN [facility] [id number] Univers 09:45:00 09:45:00 VANI roberts [facility] 2022-11-23 2022-11-23 Outpatient R ALESSANDRA [facility] [id number] Univers 11:00:00 11:42:15 [facility] 2022-11-23 [facility] 1.2.840.114 [id number] Univers 11:00:00 11:42:15 Simona Rivers 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 PROGRAM MANAGER 350.1.13.10 ity of Visit [facility] 4.2.7.2.686 Ty as MATERNAL [id number] [facility] ical & CHILD [address] [place] [address] 2022-11-09 2022-11-09 Outpatient Dana MONTOYA [facility] [id number] Univers 07:45:00 08:21:13 AVNI roberts [facility] 2022-11-09 2022-11-09 Routine Simona Aparicio [facility] 1.2.84 0.114 [id number] Univers 07:45:00 08:21:13 Vani Montoya 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 PROGRAM MANAGER 350.1.13 .10 ity of Visit REGIONAL 4.2.7.2.686 Ty as MATERNAL [id number] [facility] [address] [place] [address] 2022-11-04 2022-11-04 [facility]patient [facility] [id number] Univers 15:00:00 15:00:00 VANI ity o f [facility] 2022-10-21 2022-10-21 Outpatient R NICHOLESIPE, [facility] [id number] Univers 10:45:00 11:11:59 VANI ity o f [facility] 2022-10-21 2022-10-21 Routine [facility] 1.2.169.792 [id number] Univers 10:45:00 11:11:59 Vani C 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 PROGRAM MANAGER 350.1.13.10 ity of Visit REGIONAL 4.2.7.2.686 Ty as MATERNAL [id number] [facility] [address] [place] [address] 2022-10-07 2022-10-07 Outpatient R COLTKINGS, [facility] [id number] Univers 10:00:00 10:58:26 VANI burky o f [facility] 2022-10-07 2022-10-07 Routine [facility] 1.2.876.865 [id number] Univers 10:00:00 10:58:26 Vani C 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 PROGRAM MANAGER 350.1.13.10 ity of Visit REGIONAL 4.2.7.2.686 Ty as MATERNAL [id number] [facility] [address] [place] [address] 2022-09-29 2022-09-29 Abstract [facility] 1.2.840.114 [id number] Univers 00:00:00 00:00:00 Vani C 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 PROGRAM MANAGER 350.1.13.10 ity of REGIONAL 4.2.7.2.686 Ty as MATERNAL [id number] [facility] ical & CHILD [address] [place] [address] 2022-09-28 2022-09-28 Mixing Machine Tender Cork Rod 1, [facility] 1.2. 840.114 [id number] Univers 14:30:00 14:58:03 Visit Willie Ramirez 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 PROGRAM MANAGER 350.1.13.10 ity of REGIONAL 4.2.7.2.686 Ty as MATERNAL [id number] [facility] ical & CHILD [address] [place] [address] 2022-09-28 2022-09-28 Outpatient P WILLIE RAMIREZ [facility] [id number] Univers 14:30:00 14:30:00 WILLIE RAMIREZ ity of [facility] 2022-09-26 2022-09-[address] [facility].2.840.114 [id number] Univers 00:00:00 00:00:00 Vani C 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 PROGRAM MANAGER 350.1.13.10 ity of REGIONAL 4.2.7.2.686 Ty as MATERNAL [phone] Med ical & CHILD [address] [place] [address] 2022-09-23 2022-09-23 Outpatient R JAN [facility] [id number] Univers 11:00:00 11:54:21 VANI graf o f [facility] 2022-09-23 2022-09-23 [place] [id number] Univers 11:00:00 11:54:21 Vani C 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 PROGRAM MANAGER 350.1.13.10 ity of Visit REGIONAL 4.2.7.2.686 Ty as MATERNAL [id number] [facility] [address] [place] [address] 2022-09-14 2022-09-14 Outpatient R JAN [facility] [id number] Univers 09:00:00 09:00:00 VANI graf o f [facility] 2022-08-18 2022-08-18 Abstract [facility] 1.2.840.114 [id number] Univers 00:00:00 00:00:00 Vani C 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 PROGRAM MANAGER 350.1.13.10 ity of REGIONAL 4.2.7.2.686 Ty as MATERNAL [id number] [facility] [address] [place] [address] 2022-08-18 2022-08-18 Abstract [facility] 1.2.840.114 [id number] Univers 00:00:00 00:00:00 Vani C 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 PROGRAM MANAGER 350.1.13.10 ity of REGIONAL 4.2.7.2.686 Ty as MATERNAL [id number] Med ical & CHILD [address] [place] [address] 2022-08-17 2022-08-17 Routine Akinsipe, [facility] 1.2.264.641 [id number] Univers 10:45:00 11:29:04 Vani C 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 PROGRAM MANAGER 350.1.13.10 ity of Visit REGIONAL 4.2.7.2.686 Ty as MATERNAL [id number] [facility] [address] [place] [address] 2022-08-17 2022-08-17 Mixing Machine Tender Cork Rod Ultrasound, [facility] 1.2 .840.114 [id number] Univers 09:15:00 10:30:00 Visit Madeline Garcia 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 PROGRAM MANAGER 350.1.13.10 ity of REGIONAL 4.2.7.2.686 Ty as MATERNAL [id number] [facility] ical & CHILD [address] [place] [address] 2022-08-17 2022-08-17 Outpatient P MADELINE GARCIA [facility] [id number] Univers 09:15:00 09:55:18 MADELINE GARCIA ity [facility] 2022-07-21 2022-07-21 Outpatient R AKINSIPE, [facility] [id number] Univers 09:45:00 10:31:29 VANI ity o f [facility] 2022-07-21 2022-07-21 Routine Akinsipe, [facility] 1.2.972.268 [id number] Univers 09:45:00 10:31:29 Vani C 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 PROGRAM MANAGER 350.1.13.10 ity of Visit REGIONAL 4.2.7.2.686 Ty as MATERNAL [id number] [facility] [address] [place] [address] 2022-07-14 2022-07-14 Abstract Akinsipe, [facility] 1.2.840.114 [id number] Univers 00:00:00 00:00:00 Vani C 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 PROGRAM MANAGER 350.1.13.10 ity of REGIONAL 4.2.7.2.686 Ty as MATERNAL [id number] [facility] [address] [place] [address] 2022-06-28 2022-06-28 Outpatient R AKINSIPE, [facility] [id number] Univers 13:15:00 13:15:00 VANI ity o f [facility] 2022-06-28 2022-06-28 Mixing Machine Tender Cork Rod Lab, [facility] 1.2.840. 114 [id number] [facility] 13:15:00 13:15:00 Visit Vani Montoya 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 PROGRAM MANAGER 350.1.13. 10 ity of [facility] 4.2.7.2.686 Ty as MATERNAL [id number] [facility] [address] [place] [address] 2022-06-24 2022-06-24 Abstract [facility] 1.2.840.114 [id number] [facility] 00:00:00 00:00:00 Vani C 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 PROGRAM MANAGER 350.1.13.10 ity of [facility] 4.2.7.2.686 Ty as MATERNAL [id number] [facility] & [address] 2022-06-23 2022-06-23 Outpatient P WILLIE RAMIREZ [facility] [id number] [facility] 09:15:00 15:56:10 WILLIE RAMIREZ ity [facility] 2022-06-23 2022-06-23 Mixing Machine Tender Cork Rod 1, [facility] 1.2. 840.114 [id number] [facility] 09:15:00 15:56:10 Visit Willie Ramirez 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 PROGRAM MANAGER 350.1.13.10 ity of [facility] 4.2.7.2.686 Ty as MATERNAL [id number] [facility] & CHILD [address] [place] [address] 2022-06-23 2022-06-23 Mixing Machine Tender Cork Rod Lab, [facility] 1.2.840. 114 [id number] [facility] 10:00:00 10:12:39 Visit Tonya Heath 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 PROGRAM MANAGER 350.1.13.10 ity of REGIONAL 4.2.7.2.686 Ty as MATERNAL [id number] [facility] [address] [place] [address] 2022-06-23 2022-06-23 Telephone [facility] 1.2.840.114 [id number] Univers 00:00:00 00:00:00 Vani C 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 PROGRAM MANAGER 350.1.13.10 ity of REGIONAL 4.2.7.2.686 Ty as MATERNAL [id number] [facility] & CHILD [address] [place] [address] 2022-06-22 2022-06-22 [facility] [id number] Univers 09:45:00 10:36:01 VANI graf o f [facility] 2022-06-22 2022-06-22 [facility]ine [facility], [facility] 1.2.564.272 [id number] Univers 09:45:00 10:36:01 Vani C 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 PROGRAM MANAGER 350.1.13.10 ity of Visit [facility] 4.2.7.2.686 Ty as MATERNAL [id number] [facility] & CHILD [address] [place] [address] 2022-06-22 2022-06-22 Orders Doctor MARIA G 1.2.840.114 [id number] Univers 00:00:00 00:00:00 Only Unassigned, JESUS 350.1.13.10 ity of [facility] 4.2.7.2.686 Ty as [id number] [address] 2022-05-25 2022-05-25 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 [id number] Univers 09:45:00 09:59:33 VANI graf o alejandra [facility] 2022-05-25 2022-05-25 [facility] 1.2.679.271 [id number] Univers 09:45:00 09:59:33 Vani C 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 PROGRAM MANAGER 350.1.13.10 ity of Visit REGIONAL 4.2.7.2.686 Ty as MATERNAL [id number] [facility] ical & CHILD [address] [place] [address] 2022-05-10 2022-05-10 Telephone [facility] 1.2.840.114 [id number] Univers 00:00:00 00:00:00 Vani C 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 PROGRAM MANAGER 350.1.13.10 ity of [facility] 4.2.7.2.686 Ty as MATERNAL [id number] [facility] & CHILD [address] [place] [address] 2022-05-09 2022-05-09 [facility] [id number] Univers 13:15:00 13:23:32 VANI ity o f [facility] 2022-05-09 2022-05-09 Mixing Machine Tender Cork Rod Lab, Ang-Rmchp [facility] 1.2.840. 114 [id number] Univers 13:15:00 13:23:32 Visit Jan Vani C 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 PROGRAM MANAGER 350.1.13. 10 ity of REGIONAL 4.2.7.2.686 Ty as MATERNAL [id number] [facility] [address] [place] [address] 2022-05-05 2022-05-05 Outpatient R AKINTITO, [facility] [id number] Univers 12:45:00 12:45:00 VANI ity o f [facility] 2022-05-04 2022-05-04 Telephone [facility] 1.2.840.114 [id number] Univers 00:00:00 00:00:00 Vani C 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 PROGRAM MANAGER 350.1.13.10 ity of REGIONAL 4.2.7.2.686 Ty as MATERNAL [id number] [facility] & [address] 2022-05-02 2022-05-02 Telephone [facility] 1.2.840.114 [id number] Univers 00:00:00 00:00:00 Vani C 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 PROGRAM MANAGER 350.1.13.10 ity of REGIONAL 4.2.7.2.686 Ty as MATERNAL [id number] [facility] & [address] 2022-04-29 2022-04-29 Outpatient R AKINTITO, [facility] [id number] Univers 13:00:00 13:00:00 VANI ity o [facility] 2022-04-27 2022-04-27 Outpatient R JAN, [facility] [id number] Univers 10:00:00 10:53:17 VANI ity o f [facility] 2022-04-27 2022-04-27 Initial [facility] 1.2.823.735 [id number] Univers 10:00:00 10:53:17 Vani C 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 PROGRAM MANAGER 350.1.13.10 ity of Visit REGIONAL 4.2.7.2.686 Ty as MATERNAL [id number] [facility] ical & CHILD [address] [place] [address] 2022-04-27 2022-04-27 Telephone [facility] 1.2.840.114 [id number] Univers 00:00:00 00:00:00 Vani Velásquez 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 PROGRAM MANAGER 350.1.13.10 ity of [facility] 4.2.7.2.686 Ty as MATERNAL [id number] [facility] ical & CHILD [address] [place] [address] 2022-04-27 2022-04-27 Orders Doctor MARIA G 1.2.840.114 [id number] Univers 00:00:00 00:00:00 Only Unassigned, JESUS 350.1.13.10 ity of [place] [facility] 4.2.7.2.686 Ty as [id number] [address] 2022-03-04 2022-03-04 Outpatient Dana APARICIO [facility] [id number] Univers 09:15:00 09:15:00 SIMONA ity [facility] 2022-03-04 2022-03-04 Telephone [facility] 1.2.840.114 [id number] Univers 00:00:00 00:00:00 Vani Velásquez 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 PROGRAM MANAGER 350.1.13.10 ity of [facility] 4.2.7.2.686 Ty as MATERNAL [id number] [facility] & CHILD [address] [place] [address] 2022-02-17 2022-02-17 Outpatient Dana APARICIO [facility] [id number] Univers 10:00:00 10:08:43 SIMONA itdiane [facility] 2022-02-17 2022-02-17 Office Provider, Ang-Rmchp [facility] 1 .2.840.114 [id number] Univers 10:00:00 10:08:43 Visit Simona Aparicio 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 PROGRAM MANAGER 350.1.13.1 0 ity of [facility] 4.2.7.2.686 Ty as MATERNAL [id number] [facility] [address] [place] [address] 2022-02-11 2022-02-11 Case Alessandra [facility] 1.2.840.114 [id number] Univers 00:00:00 00:00:00 Management Simona Rivers 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 PROGRAM MANAGER 350.1.13.10 ity of [facility] 4.2.7.2.686 Ty as MATERNAL [id number] [facility] [address] [place] [address] 2022-02-10 2022-02-10 Office Provider, ShahabRmchmatty [facility] 1 .2.840.114 [id number] Univers 15:30:00 16:18:34 Visit Simona Aparicio 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 PROGRAM MANAGER 350.1.13.1 0 ity of [facility] 4.2.7.2.686 Ty as MATERNAL [id number] [facility] & CHILD [address] [place] [address] 2022-02-10 2022-02-10 [facility] [id number] Univers 15:30:00 16:18:34 SIMONA ity [facility] 2022-01-19 2022-01-19 Orders Doctor MARIA G 1.2.840.114 [id number] Univers 00:00:00 00:00:00 Only Unassigned, JESUS 350.1.13.10 ity of [place] [facility] 4.2.7.2.686 Ty as [id number] [address] 2021-12-31 2021-12-31 Outpatient [facility] [id number] Univers 09:40:00 09:40:00 ATTENDING ity of [facility] 2021-09-22 2021-09-22 [facility] [id number] Univers 12:17:01 23:59:00 VANI hair f [facility] 2021-09-22 2021-09-22 [place] [facility] [id number] Univers 12:17:01 23:59:00 Encounter Vani Velásquez SPECIALTY [id number] [place]y [place] [id number] [facility] [phone] Dc darnell BERNAL [address] [place] [address] 2021-09-22 2021-09-22 [facility] [id number] Univers 00:00:00 00:00:00 VANI graf o [facility] 2021-06-30 2021-06-30 Outpatient R AKINSIPE, [facility] [id number] Univers 12:45:00 13:32:57 VANI graf o [facility] 2021-06-30 2021-06-30 Outpatient R AKINSIPE, [facility] [id number] Univers 12:45:00 12:45:00 VANI graf o [facility] 2021-06-30 2021-06-30 Outpatient R AKINSIPE, [facility] [id number] Univers 09:15:00 09:49:37 VANI hair [facility] 2021-06-30 2021-06-30 Office Nicholesipe, [facility] [id number] Univers 09:15:00 09:49:37 Visit Vani Velásquez 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 PROGRAM MANAGER [id number] ity of [facility] [id number] Ty as MATERNAL [phone] [facility] ical & CHILD [address] [place] [address] 2021-06-30 2021-06-30 Outpatient R AKINSIPE, [facility] [id number] Univers 09:15:00 09:49:37 VANI graf o [facility] 2021-06-30 2021-06-30 Outpatient R AKINSIPE, [facility] [id number] Univers 09:15:00 09:49:37 VANI graf o [facility] 2021-06-30 2021-06-30 Orders Doctor MARIA G [id number] Univers 00:00:00 00:00:00 Only Unassigned, JESUS 350.1.13.10 ity of [place] [facility] [id number] Ty as [phone] [address] 2021-06-02 2021-06-02 Case JAROCHO Teague [id number] Univers 00:00:00 00:00:00 Management Rachana EDWARDS [id number] ity [place] [place] [phone] [facility] [address] 2021-05-26 2021-05-26 [facility] [id number] Univers 10:15:00 10:54:44 Visit Vani Velásquez 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 PROGRAM MANAGER [id number] ity of [facility] [id number] [place] as MATERNAL [phone] Med ical & CHILD [address] [place] [address] 2021-05-26 2021-05-26 [facility] [id number] Univers 10:15:00 10:54:44 VANI hair [facility] 2021-05-26 2021-05-26 [facility] [id number] Univers 10:15:00 10:15:00 VANI hair [facility] 2021-05-26 2021-05-26 Orders Doctor MARIA G 1.2.840.114 [id number] Univers 00:00:00 00:00:00 Only Unassigned, JESUS 350.1.13.10 ity of [place] [facility] 4.2.7.2.[phone] [facility] [address] 2021-05-21 2021-05-21 [facility] [id number] Univers 10:00:00 10:00:00 VANI graf o f [facility] 2021-01-12 2021-01-12 Emergency Brodie, Sergio [facility] 1.2.840.114 [id number] Univers 15:00:00 17:49:00 [facility] [id number] [place] [phone] [facility] [address] 2020-07-10 2020-07-10 Outpatient R [facility] [id number] Univers 12:30:00 12:30:00 ity of [facility] 2020-06-23 2020-06-23 Patient Thaddeus [facility] 1.2.840.114 [id number] Univers 00:00:00 00:00:00 Outreach Tye CERVANTES 350.1.13.10 i ty of [place] 4.2.7.2.686 Connie s PALLAVI [phone] [address] 2020-06-03 2020-06-03 Office [facility] 1.2.840.114 [id number] Univers 10:28:44 11:00:41 Visit Smileymorgan Cortez 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 PROGRAM MANAGER 350.1.13.10 ity [facility] [id number] Ty as MATERNAL [phone] [facility] ical & CHILD [address] [place] [address] 2020-06-03 2020-06-03 Outpatient Dana WOODS [facility] [id number] Univers 10:45:00 10:45:00 HELLEN bhargavidiane hair [facility] 2020-06-03 2020-06-03 Outpatient Dana WOODS [facility] [id number] Univers 10:45:00 10:45:00 CHECOLEORASilvestre graf o [facility] 2020-04-15 2020-04-15 Outpatient Dana WOODS [facility] [id number] Univers 14:30:00 14:30:00 HELLEN graf o [facility] 2020-04-15 2020-04-15 Outpatient Dana WOODS [facility] [id number] Univers 14:30:00 14:30:00 HELLEN graf o [facility] 2020-04-14 2020-04-14 Outpatient Dana WOODS [facility] [id number] Univers 13:30:00 13:30:00 HELLEN bhargavidiane o [facility] 2020-04-09 2020-04-09 Outpatient Dana WOODS [facility] [id number] Univers 13:30:00 13:30:00 CHECOMORGAN burkdiane o [facility] 2020-04-07 2020-04-07 Outpatient Dana AC [facility] [id number] Univers 13:45:00 13:45:00 AICHA graf [facility] 2020-04-05 2020-04-05 Emergency [facility] 1.2.840.114 [id number] Univers 06:31:00 06:45:00 Rosalina Bruce 350.1.13.10 [place] [phone] [facility] [address] 2020-04-05 2020-04-05 Emergency [facility] 1.2.840.114 [id number] 06:31:00 06:45:00 Rosalina Bruce 350.1.13.10 [place] 4.2.7.2.686 [place] [phone] [facility] 2020-03-16 2020-03-16 Office [facility] 1.2.840.114 [id number] Univers 13:09:12 14:29:45 Visit Hellen Cortez 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 PROGRAM MANAGER 350.1.13.10 ity of [facility] [id number] Ty as MATERNAL [phone] Med ical & CHILD [address] [place] [address] 2020-03-16 2020-03-16 Office [facility] 1.2.840.114 [id number] 13:09:12 14:29:45 Visit Hellen Cortez 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 PROGRAM MANAGER 350.1.13.10 [facility] [id number] MATERNAL [phone] & CHILD [address] [place] [address] 2020-03-16 2020-03-16 Outpatient R PEGGY [facility] [id number] Univers 13:15:00 13:15:00 HELLEN ity o f [facility] 2020-03-16 2020-03-16 Orders Doctor CUMMINS 1.2.840.114 [id number] Univers 00:00:00 00:00:00 Only Unassigned, JESUS 350.1.13.10 ity of [place] [facility] 4.2.7.2.[phone] [facility] [address] 2018-12-19 2018-12-19 Telephone [facility] 1.2.840.114 [id number] Univers 00:00:00 00:00:00 Aicha Quevedo 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 PROGRAM MANAGER 350.1.13.10 it y of [facility] [id number] Ty as MATERNAL [phone] Med ical & CHILD [address] [place] [address] 2018-12-11 2018-12-11 Orders Doctor CUMMINS 1.2.840.114 [id number] Univers 00:00:00 00:00:00 Only Unassigned, JESUS 350.1.13.10 ity of [place] [facility] [id number] [place] as [phone] [address] 2018-10-31 2018-10-31 Office [facility] [id number] Univers 15:40:31 15:57:46 Visit Aicha Quevedo 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 PROGRAM MANAGER 350.1.13.10 it y of [facility] [id number] Ty as MATERNAL [phone] Med ical & CHILD [address] [place] [address] Results Test Description Test Time Test Comments Results Result Comments Source POCT URINALYSIS W SPECIFIC GRAVITY 2022-11-23 16:06:00 Test Item Value Reference Range Interpretation Comme nts POCT U SP GRAV (test code = 3255) . 1.005-1.025 POCT PH U (test code = 3254) 6 mg/dl 5-8 POCT U LEUK EST (test code = 3263) Trace Negative - Negative POCT U NIT (test code = 3262) Neg Negative - Negative POCT U PROT (test code = 3259) Trace Negative - Negative POCT U GLU (test code = 3256) Neg Negative - Negative POCT U KETONE (test code = 3258) None Negative - Negative POCT U UROBILI (test code = 3260) . 0.2-1 POCT U BILI (test code = 3261) . Negative - Negative POCT U BLD (test code = 3257) Trace Negative - Negative POCT U COLOR (test code = 3266) POCT U APPEAR (test code = 3267) [facility] [id number] 12:55:00 Test Item Value Reference Range Interpretation Comments POCT U SP GRAV (test code = . 1.005-1.025 3255) POCT PH U (test code = 3254) . 5-8 POCT U LEUK EST (test code = . Negative - Negative 3263) POCT U NIT (test code = 3262) . Negative - Negative POCT U PROT (test code = 3259) trace Negative - Negative POCT U GLU (test code = 3256) negative Negative - Negative POCT U KETONE (test code = 3258) . Negative - Negative POCT U UROBILI (test code = . 0.2-1 3260) POCT U BILI (test code = 3261) . Negative - Negative POCT U BLD (test code = 3257) . Negative - Negative POCT U COLOR (test code = 3266) . POCT U APPEAR (test code = 3267) . [facility] URINALYSIS W SPECIFIC [id number] 12:55:00 Test Item Value Reference Range Interpretation Comments POCT U SP GRAV (test code = . 1.005-1.025 3255) POCT PH U (test code = 3254) . 5-8 POCT U LEUK EST (test code = . Negative - Negative 3263) POCT U NIT (test code = 3262) . Negative - Negative POCT U PROT (test code = 3259) trace Negative - Negative POCT U GLU (test code = 3256) negative Negative - Negative POCT U KETONE (test code = 3258) . Negative - Negative POCT U UROBILI (test code = . 0.2-1 3260) POCT U BILI (test code = 3261) . Negative - Negative POCT U BLD (test code = 3257) . Negative - Negative POCT U COLOR (test code = 3266) . POCT U APPEAR (test code = 3267) . [facility] URINALYSIS W SPECIFIC [id number] 15:58:00 Test Item Value Reference Range Interpretation Comments POCT U SP GRAV (test code = 3255) . 1.005-1.025 POCT PH U (test code = 3254) . 5-8 POCT U LEUK EST (test code = 3263) . Negative - Negative POCT U NIT (test code = 3262) . Negative - Negative POCT U PROT (test code = 3259) neg Negative - Negative POCT U GLU (test [...] U APPEAR (test code = 3267) . [facility] URINALYSIS W SPECIFIC [id number] 15:58:00 Test Item Value Reference Range Interpretation Comments POCT U SP GRAV (test code = 3255) . 1.005-1.025 POCT PH U (test code = 3254) . 5-8 POCT U LEUK EST (test code = 3263) . Negative - Negative POCT U NIT (test code = 3262) . Negative - Negative POCT U PROT (test code = 3259) neg Negative - Negative POCT U GLU (test [...] U APPEAR (test code = 3267) . [facility] URINALYSIS W SPECIFIC [id number] 15:02:00 Test Item Value Reference Range Interpretation Comments [...] U APPEAR (test code = 3267) . [facility] URINALYSIS W SPECIFIC [id number] 16:18:00 Test Item Value Reference Range Interpretation Comments [...] U APPEAR (test code = 3267) . [facility] URINALYSIS W SPECIFIC [id number] 16:18:00 Test Item Value Reference Range Interpretation Comments [...] U APPEAR (test code = 3267) . [facility] URINALYSIS W SPECIFIC [id number] 16:18:00 Test Item Value Reference Range Interpretation Comments [...] U APPEAR (test code = 3267) . [facility] URINALYSIS W SPECIFIC [id number] 15:26:00 Test Item Value Reference Range Interpretation Comments [...] U APPEAR (test code = 3267) . [facility] URINALYSIS W SPECIFIC [id number] 15:26:00 Test Item Value Reference Range Interpretation Comments [...] U APPEAR (test code = 3267) . [facility] URINALYSIS W SPECIFIC [id number] 15:26:00 Test Item Value Reference Range Interpretation Comments [...] U APPEAR (test code = 3267) . [facility] URINALYSIS W SPECIFIC [id number] 15:26:00 Test Item Value Reference Range Interpretation Comments [...] U APPEAR (test code = 3267) . [facility] URINALYSIS W SPECIFIC [id number] 14:46:00 Test Item Value Reference Range Interpretation Comments POCT U SP GRAV (test code = . 1.005-1.025 3255) POCT PH U (test code = 3254) . 5-8 POCT U LEUK EST (test code = . Negative - Negative 3263) POCT U NIT (test code = 3262) . Negative - Negative POCT U PROT (test code = 3259) trace Negative - Negative POCT U GLU (test code = 3256) negative Negative - Negative POCT U KETONE (test code = 3258) . Negative - Negative POCT U UROBILI (test code = . 0.2-1 3260) POCT U BILI (test code = 3261) . Negative - Negative POCT U BLD (test code = 3257) . Negative - Negative POCT U COLOR (test code = 3266) . POCT U APPEAR (test code = 3267) . [facility] URINALYSIS W SPECIFIC [id number] 14:46:00 Test Item Value Reference Range Interpretation Comments POCT U SP GRAV (test code = . 1.005-1.025 3255) POCT PH U (test code = 3254) . 5-8 POCT U LEUK EST (test code = . Negative - Negative 3263) POCT U NIT (test code = 3262) . Negative - Negative POCT U PROT (test code = 3259) trace Negative - Negative POCT U GLU (test code = 3256) negative Negative - Negative POCT U KETONE (test code = 3258) . Negative - Negative POCT U UROBILI (test code = . 0.2-1 3260) POCT U BILI (test code = 3261) . Negative - Negative POCT U BLD (test code = 3257) . Negative - Negative POCT U COLOR (test code = 3266) . POCT U APPEAR (test code = 3267) . [facility] URINALYSIS W SPECIFIC [id number] 15:10:00 Test Item Value Reference Range Interpretation Comments POCT U SP GRAV (test code = 3255) . 1.005-1.025 POCT PH U (test code = 3254) . 5-8 POCT U LEUK EST (test code = 3263) . Negative - Negative POCT U NIT (test code = 3262) . Negative - Negative POCT U PROT (test code = 3259) 1+ Negative - Negative POCT U GLU (test [...] U APPEAR (test code = 3267) . [facility] URINALYSIS W SPECIFIC [id number] 15:10:00 Test Item Value Reference Range Interpretation Comments POCT U SP GRAV (test code = 3255) . 1.005-1.025 POCT PH U (test code = 3254) . 5-8 POCT U LEUK EST (test code = 3263) . Negative - Negative POCT U NIT (test code = 3262) . Negative - Negative POCT U PROT (test code = 3259) 1+ Negative - Negative POCT U GLU (test [...] U APPEAR (test code = 3267) . [facility] URINALYSIS W SPECIFIC [id number] 15:10:00 Test Item Value Reference Range Interpretation Comments POCT U SP GRAV (test code = 3255) . 1.005-1.025 POCT PH U (test code = 3254) . 5-8 POCT U LEUK EST (test code = 3263) . Negative - Negative POCT U NIT (test code = 3262) . Negative - Negative POCT U PROT (test code = 3259) 1+ Negative - Negative POCT U GLU (test [...] U APPEAR (test code = 3267) . [facility] URINALYSIS W SPECIFIC [id number] 15:10:00 Test Item Value Reference Range Interpretation Comments POCT U SP GRAV (test code = 3255) . 1.005-1.025 POCT PH U (test code = 3254) . 5-8 POCT U LEUK EST (test code = 3263) . Negative - Negative POCT U NIT (test code = 3262) . Negative - Negative POCT U PROT (test code = 3259) 1+ Negative - Negative POCT U GLU (test [...] U APPEAR (test code = 3267) . [facility] URINALYSIS W SPECIFIC [id number] 15:34:00 Test Item Value Reference Range Interpretation [...] U APPEAR (test code = 3267) . [facility] URINALYSIS W SPECIFIC [id number] 15:34:00 Test Item Value Reference Range Interpretation [...] U APPEAR (test code = 3267) . [facility] URINALYSIS W/O SPECIFIC [id number] 15:45:00 Test Item Value Reference Range Interpretation [...] code = 3257) Trace Negative - Negative [facility] [id number] 15:44:00 Test Item Value Reference Range Interpretation Comments POCT PREG (test code = 1605) Positive On board controls acceptable with C Yes Line (test code = 3574) POCT PREG LOT # (test code = 3575) POCT PREG TEST DATE (test code = 3576) [facility] [id number] 15:48:00 Test Item Value Reference Range Interpretation Comments POCT PREG (test code = 1605) Negative On board controls acceptable with C Yes Line (test code = 3574) POCT PREG LOT # (test code = 3575) POCT PREG TEST DATE (test code = 3576) [facility] [id number] 15:48:00 Test Item Value Reference Range Interpretation Comments POCT PREG (test code = 1605) Negative On board controls acceptable with C Yes Line (test code = 3574) POCT PREG LOT # (test code = 3575) POCT PREG TEST DATE (test code = 3576) [facility] [id number] 22:27:00 Test Item Value Reference Range Interpretation Comments POCT PREG (test code = 1605) Negative On board controls acceptable with C Yes Line (test code = 3574) POCT PREG LOT # (test code = 3575) POCT PREG TEST DATE (test code = 3576) [facility] [id number] 22:27:00 Test Item Value Reference Range Interpretation Comments POCT PREG (test code = 1605) Negative On board controls acceptable with C Yes Line (test code = 3574) POCT PREG LOT # (test code = 3575) POCT PREG TEST DATE (test code = 3576) [facility]
--- NOTE | 2022-11-28 08:15 | EDPHYS ---
Physician Documentation [facility] Name: Marla Harmon Age: 21 yrs Sex: Female : 2000 Arrival Date: 11/28/2022 Time: 07:28 Bed 1 Private MD: ED Physician Kristian Waller HPI: 11/28 07:52 This 21 yrs old Female presents to ER via Ambulatory with complaints of Contractions 37 rn wks. 07:52 The patient presents to the emergency department with possible uterine contractions, rn last night. The estimated gestational age is 37 weeks. course: care: private OB physician, Leakage of Fluid: none appreciated, Ultrasound: the patient had an ultrasound. Previous pregnancies: in previous pregnancies patient has had. The patient has not experienced similar symptoms in the past. The patient has not recently seen a physician. at 37 weeks with lower abd pressure and cramps since last night, around 11AM. Last time was vaginal delivery and induced. NO leakage of fluid or bleeding. . 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 - Social history:: Smoking status: unknown. - Family history:: not pertinent. - Hospitalizations: : No recent hospitalization is reported. ROS: 07:52 Constitutional: Negative for fever, chills, and weight loss, Cardiovascular: Negative rn for chest pain, palpitations, and edema, Respiratory: Negative for shortness of breath, cough, wheezing, and pleuritic chest pain, Abdomen/GI: + abd contractions : Negative for injury, bleeding, discharge, and swelling, MS/Extremity: Negative for injury and deformity, Skin: Negative for injury, rash, and discoloration, Neuro: Negative for headache, weakness, numbness, tingling, and seizure. Exam: 07:52 Constitutional: This is a well developed, well nourished patient who is awake, alert, rn and in no acute distress. Cardiovascular: Regular rate and rhythm. No pulse deficits. Respiratory: No increased work of breathing, no retractions or nasal flaring. Abdomen/GI: Soft, lower abd pain Pelvic Exam: Normal external genitalia. Cervical exam without blood or fluid, cervix thin and approx 1-2 cm, head not palpated. Vital Signs: 07:38 BP 130 / 75; Pulse 97; Resp 20; Temp 97.9; Pulse Ox 100% on R/A; Weight 120.66 kg; ph Height 5 ft. 9 in. ; 08:56 BP 127 / 89; Pulse 96; Resp 18; Temp 97.5; Pulse Ox 99% on R/A; ph 07:38 Body Mass Index 39.28 (120.66 kg, 175.26 cm) ph MDM: 07:31 Patient medically screened. rn 08:10 Differential diagnosis: Formoso moore, delivery of . Data reviewed: vital signs, rn nurses notes, and as a result, I will admit patient. Consideration of Admission/Observation Patient was admitted/placed on observation. Escalation of care including admission/observation considered. Counseling: I had a detailed discussion with the patient and/or guardian regarding the historical points, exam findings, and any diagnostic results supporting the discharge/admit diagnosis, the need to transfer to another facility, for higher level of care, [facility] does not immediately have the required specialist. Response to treatment: There is no appreciated change of the patient's symptoms at this time, and as a result, I will admit patient. ED course: Pt accepted for transfer to [facility]. . 11/28 07:40 Order name: IV Start; Complete Time: 08:03 rn 11/28 07:40 Order name: Pelvic Exam Setup; Complete Time: 08:03 rn Administered Medications: No medications were administered Disposition Summary: 11/28/22 08:14 Transfer Ordered Transfer Location: [facility] rn Reason: Higher level of care rn Condition: Stable rn Problem: new rn Symptoms: are unchanged rn Accepting Physician: (11/28/22 08:57) ph Diagnosis - Maternal contractions in , 3rd trimester rn Forms: - Medication Reconciliation Form rn - SBAR form rn Signatures: Kristian Waller MD MD rn Hall, Patricia, RN RN ph Corrections: (The following items were deleted from the chart) 08:57 08:14 Dr. hidalgo ph
--- NOTE | 2022-11-28 08:15 | ER ---
Nurse's Notes [facility] Name: Marla Harmon Age: 21 yrs Sex: Female : 2000 Arrival Date: 11/28/2022 Time: 07:28 Bed 1 Private MD: Diagnosis: Maternal contractions in , 3rd trimester Presentation: 11/28 07:38 Chief complaint: Patient states: Is 37 weeks gestation, began experiencing cramping ph last night at approx 11pm, no leakage of fluids or bleeding, 2nd w/ no complications. Coronavirus screen: Vaccine status: Patient reports receiving the 2nd dose of the covid vaccine. Ebola Screen: No symptoms or risks identified at this time. Initial Sepsis Screen: Does the patient meet any 2 criteria? No. Patient's initial sepsis screen is negative. Does the patient have a suspected source of infection? No. Patient's initial sepsis screen is negative. Risk Assessment: Do you want to hurt yourself or someone else? Patient reports no desire to harm self or others. Onset of symptoms was November 28, 2022. 07:38 Method Of Arrival: Ambulatory 07:38 Acuity: NOLBERTO 3 ph Triage Assessment: 07:43 General: Appears in no apparent distress. Behavior is calm, cooperative. Pain: ph Complains of pain in right upper quadrant, left upper quadrant, right lower quadrant and left lower quadrant. Neuro: Level of Consciousness is awake, alert, obeys commands, Oriented to person, place, time, situation. Cardiovascular: Capillary refill < 3 seconds in bilateral fingers Patient's skin is warm and dry. Respiratory: Airway is patent Respiratory effort is even, unlabored. GI: Abdomen is round. : Reports cramping, Denies discharge. 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 - Social history:: Smoking status: unknown. - Family history:: not pertinent. - Hospitalizations: : No recent hospitalization is reported. Screenin:44 [facility] ED Fall Risk Assessment (Adult) History of falling in the last 3 months, ph including since admission No falls in past 3 months (0 pts) Confusion or Disorientation No (0 pts) Intoxicated or Sedated No (0 pts) Impaired Gait Yes (1 pt) Mobility Assist Device Used No (0 pt) Altered Elimination No (0 pt) Score/Fall Risk Level 0 - 2 = Low Risk Oriented to surroundings, Maintained a safe environment, Hourly rounding (assess needs \T\ fall precautionary measures) done, Used ambulatory aids as needed (educated on \T\ assisted with). Abuse screen: Denies threats or abuse. Denies injuries from another. Nutritional screening: No deficits noted. Tuberculosis screening: No symptoms or risk factors identified. Assessment: 07:44 Reassessment: Dr Waller and Luzma Cruz RN at bedside for exam. ph 08:26 Reassessment: Report called to Dorcas Pickard RN at [facility]. ph 08:55 Reassessment: Patient appears in no apparent distress at this time. Patient and/or ph family updated on plan of care and expected duration. Pain level reassessed. Patient is alert, oriented x 3, equal unlabored respirations, skin warm/dry/pink. Pt reports pain and pressure to lower abdomen, assisted to restroom via wheelchair to urinate, denies spotting, [facility] at bedside, report given to Melissa Kulkarni pt transferred to [facility]. Vital Signs: 07:38 BP 130 / 75; Pulse 97; Resp 20; Temp 97.9; Pulse Ox 100% on R/A; Weight 120.66 kg; ph Height 5 ft. 9 in. ; 08:56 BP 127 / 89; Pulse 96; Resp 18; Temp 97.5; Pulse Ox 99% on R/A; ph 07:38 Body Mass Index 39.28 (120.66 kg, 175.26 cm) ph ED Course: 07:30 Patient arrived in ED. mg5 07:31 Kristian Waller MD is Attending Physician. rn 07:42 Triage completed. ph 07:44 Arm band placed on Patient placed in an exam room. ph 07:46 Patient has correct armband on for positive identification. Placed in gown. Bed in low ph position. Call light in reach. Pulse ox on. NIBP on. Door closed. Noise minimized. Warm blanket given. 07:50 Inserted saline lock: 22 gauge in right hand, using aseptic technique. mb9 07:50 Assist provider with pelvic exam: Performed by Kristian Waller MD Patient tolerated well. mb9 08:08 initiated transfer to [facility]. bd 08:22 pt accepted in transfer to [facility] by dr Foster, admin approval given by alfa Bernal. 08:26 Nliam Marin, RN is Primary Nurse. ph 08:57 Patient transferred, IV remains in place. ph Administered Medications: No medications were administered Medication: 07:45 VIS not applicable for this client. ph Outcome: 08:14 ER care complete, transfer ordered by . rn 08:56 Transferred by ground EMS [facility]. to [facility], ph Transfer form completed. 08:56 Condition: stable 08:56 Instructed on the need for transfer. 08:57 Patient left the ED. ph Signatures: Debi Ritchie Roman, MD MD rn Hall, Patricia, RN RN Luzma Cain, RN RN mb9 Nel Farias mg5
[2022-11-28 09:06] VITALS: BP 127/89; TEMP 97.5; O2SAT 99
== END 2022-11-28 08:57 | disposition short-term general hospital (02) ==
LOC: ER 07:28
DX: O60.03 Preterm labor without delivery, third trimester (principal); Z3A.37 37 weeks gestation of pregnancy
CPT/HCPCS: 99285

== ENCOUNTER 2023-10-02 17:42 | Emergency (ER) | payer OTHER ==
--- OUTSIDE RECORDS SUMMARY | 2023-10-02 17:57 | XMS REPORT | Continuity of Care Document ---
Author Name Unknown Address [address] [facility] [address] [place] [address] [facility] Address [address] [facility] [place] [address] Care Team Providers Care Direct Marketing Executive Name Role Phone LYUDMILA MONTOYA Primary Care Physician UnaSIMONA Ware Attending Clinician UnavailSimona Gresham CNM Attending Clinician [phone] Doctor Unassigned, [place] Attending Clinician U navailLYUDMILA Treviño Attending Clinician Unavail able Jan WHLyudmila CALVO Attending Clinician + KARRI DAY Attending Clinician Karri Downs MD Attending Clinician + Abimbola Zimmerman MD Attending Clinician [phone] Winifred Taylor MD Attending Clinician [phone] MARIA G JASSO Attending Clinician Unavailable LUCILLE FOSTER Attending Clinician LUCILLE Rowan Attending Clinician Lizzeth madden 1, [facility] Attending Clinician UnavailParvez Coles DO Attending Clinician [phone] PARVEZ RAMIREZ Attending Clinician Unavailable Ultrasound, Ang-Mfm Attending Clinician UnavailMadeline Rai MD Attending Clinician [phone] MADELINE GARCIA Attending Clinician Unavailable MADELINE GARCIA Attending Clinician Unavailable Lab, Ang-Rmchp Attending Clinician Unavailable Lab, Pea-Rmchp Attending Clinician Unavailable Ivana MSN, Tonya Rivers Attending Clinician [phone] Provider, Ang-[facility] Temp Attending Clinician Jessica vailable UNKNOWN, ATTENDING Attending Clinician Unavailab vivek Woods GRINDER SET UP OPERATOR CENTERLESS, Hellen Cortez Attending Clinician Unava ilable Ho LOGISTICAL ENGINEER, Rachana Cortez Attending Clinician Unava ilable Brodie PAC, K Kacie Attending Clinician [phone] Tye Travis DO Attending Clinician [phone] HELLEN WOODS Attending Clinician Unavailab HOUSTON Chun Attending Clinician Unavailabl Rosalina Butcher DO Attending Clinician [phone] [place] Ramachandran Attending Clinician [phone] KARRI DAY Admitting Clinician Unav luis armando Day MD, Karri Gamboa Admitting Clinician + LUCILLE FOSTER Admitting Clinician Lizzeth madden Payers Payer Name Policy Type Policy Number Effective Date Expirati on Date Source [facility] [id number] 2023 00:00:00 [facility] [id number] 2022 00:00:00 MEDICAID PENDING PENDING 2020 00:00:00 Problems Condition Name Condition Details Condition Category Status Onset Date Resolution Date Last Treatment Date Treating Clinician Comments Source Engages in vaping Engages in vaping Disease Active 2022-04 00:00: 00 [facility] Elevated blood pressure reading without diagnosis of hypertensi on Elevated blood pressure reading without diagnosis of hypertensi on Disease Active 2022-04 00:00: 00 [facility] Anemia, Anemia, Disease Active 2022-04 0 00:00: 00 [facility] 39 weeks gestation of 39 weeks gestation of Disease Active 9-14 00:00: 00 [facility] Obesity (BMI 30-39.9) Obesity (BMI 30-39.9) Disease Active 8-28 00:00: 00 [facility] Irregular uterine contractio ns Irregular uterine contractio ns Disease Active 8-28 00:00: 00 [facility] GBS (group B Streptococ cus carrier), +RV culture, 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 Pending bob [facility] UTI in UTI in Disease Active 1 00:00: 00 Overview: Formattin g of this note might be different from the original. Pending bob [facility] Supervisio n of high-risk Supervisio n of high-risk Disease Active - 00:00: 00 [facility] Multiparit y Multiparit y Disease Active 1-25 00:00: 00 [facility] History of gestationa l hypertensi on History of gestationa l hypertensi on Disease Active 1-25 00:00: 00 [facility] Other general counseling and advice for contracept rianna management Other general counseling and advice for contracept rianna management Disease Active 2-23 00:00: 00 [facility] Lump or mass in breast Lump or mass in breast Disease Active 2-23 00:00: 00 [facility] Declines flu vaccine Declines flu vaccine Disease Active 2019-04 00:00: 00 [facility] Menorrhagi a with regular cycle Menorrhagi a with regular cycle Disease Active 2019-04 00:00: 00 [facility] Class 3 severe obesity with body mass index (BMI) of 40.0 to 44.9 in adult, unspecifie d obesity type, unspecifie d whether serious comorbidit y present Class 3 severe obesity with body mass index (BMI) of 40.0 to 44.9 in adult, unspecifie d obesity type, unspecifie d whether serious comorbidit y present Disease Active 2019-04 00:00: 00 [facility] Breakthrou gh bleeding on Nexplanon Breakthrou gh bleeding on Nexplanon Disease Active 08-29 00:00: 00 [facility] Chlamydia trachomati s infection of lower genitourin kaycee sites Chlamydia trachomati s infection of lower genitourin kaycee sites Disease Active 08-29 00:00: 00 Overview: Formattin g of this note might be different from the original. BOB neg [facility] Nexplanon removal Nexplanon removal Disease Active 07-19 00:00: 00 [facility] Obesity (BMI 30-39.9) Obesity (BMI 30-39.9) Disease Active 07-03 00:00: 00 [facility] Obesity in Obesity in Disease Active 07-03 00:00: 00 [facility] Screen for STD (sexually transmitte d disease) Screen for STD (sexually transmitte d disease) Disease Active 07-03 00:00: 00 [facility] Allergies, Adverse Reactions, Alerts Allergy Name Allergy Type Status Severity Reaction(s) Onset Date Inactive Date Treating Clinician Comments Source NO KNOWN ALLERGIE S Drug Class Active [facility] Social History Social Habit Start Date Stop Date Quantity Comments Source ASSERTION 2022-03-31 00:00:00 [facility] Gender identity [facility] History of Social function 2023-03-08 00:00:00 2023-03-08 00:00:00 [facility] Cigarettes smoked current (pack per day) - Reported 2023-03-08 00:00:00 2023-03-08 00:00:00 [facility] Tobacco Comment 2023-03-08 00:00:00 2023-03-08 00:00:00 Daily vaping [facility] Alcohol intake 2023-03-08 00:00:00 2023-03-08 00:00:00 Current drinker of alcohol (finding) [facility] Tobacco use and exposure 2023-03-08 00:00:00 2023-03-08 00:00:00 User of smokeless tobacco [facility] Alcohol Comment 2023-03-08 00:00:00 2023-03-08 00:00:00 socially [facility] Exposure to SARS-CoV-2 (event) 2022-08-07 00:00:00 2022-08-17 10:24:00 Not sure [facility] History of tobacco use 2016-07-03 00:00:00 2022-04-16 00:00:00 Cigarette Smoker [facility] History SDOH Alcohol Frequency 2020-03-16 00:00:00 2020-03-16 00:00:00 3 [facility] History SDOH Alcohol Std Drinks 2020-03-16 00:00:00 2020-03-16 00:00:00 99 [facility] History SDOH Alcohol Binge 2020-03-16 00:00:00 2020-03-16 00:00:00 99 [facility] Sex Assigned At 2000 00:00:00 2000 00:00:00 [facility] Smoking Status Start Date Stop Date Source Ex-smoker 2023-03-08 00:00:00 [facility]23[facility]03[facility] 2020-03-16 00:00:00 [facility] Medications Ordered Medication Name Filled Medication Name Start Date Stop Date Current Medication? Ordering Clinician Indication Dosage Frequency Signature (SIG) Comments Components Source etonogestre L (NEXPLANON) implant 68 mg 2022-04 17:30: 00 03-08 17:30 :00 No [id number] 68mg [facility] ibuprofen 600 mg tablet 12-17 00:00: 00 03-08 00:00 :00 No [id number] 600mg Take 1 tablet by mouth every 6 (six) hours as needed (Pain). Take with food or milk. [facility] docusate 100 mg capsule 12-17 00:00: 00 01-07 00:00 :00 No [id number] 200mg Take 2 capsules by mouth once daily as needed for Constipati on. [facility] rho(D) immune globulin (RHOGAM) syringe 300 mcg 12-16 19:33: 55 Yes 300ug 300 mcg, Intramuscu lar, ONCE, For 1 dose, Conditiona l, Routine [facility] ibuprofen (IBU) tablet 600 mg 12-16 19:33: 51 Yes 600mg 600 mg, Oral, Q6HPRN, Starting on Mon12/16/22 at 1433, Until Discontinu ed, Routine, Pain (scale 4-6) [facility] acetaminoph en (TYLENOL) tablet 650 mg 12-16 19:33: 51 Yes 650mg 650 mg, Oral, Q6HPRN, Starting on Mon12/16/22 at 1433, Until Discontinu ed, Routine, Pain (scale 1-3) [facility] diphenhydrA MINE (BENADRYL) tablet 25 mg 12-16 19:33: 51 Yes 25mg 25 mg, Oral, Q6HPRN, Starting on Mon12/16/22 at 1433, Until Discontinu ed, Routine, Sleep, Itching [facility] ondansetron (ZOFRAN (PF)) injection 4 mg 12-16 19:33: 51 Yes 4mg 4 mg, Slow IV Push, Q8HPRN, Starting on Mon12/16/22 at 1433, Until Discontinu ed, Routine, Nausea and Vomiting (N/V) [facility] simethicone (GAS RELIEF (SIMETHICON E)) chewable tablet 160 mg 12-16 19:33: 51 Yes 160mg 160 mg, Oral, PC+HSPRN, Starting on Mon12/16/22 at 1433, Until Discontinu ed, Routine, Gas [facility] docusate (COLACE) capsule 200 mg 12-16 19:33: 51 Yes 200mg 200 mg, Oral, QDAILYPRN, Starting on Mon12/16/22 at 1433, Until Discontinu ed, Routine, Constipati on [facility] magnesium hydroxide (MILK OF MAGNESIA) 400 mg/5 mL suspension 30 mL 12-16 19:33: 51 Yes 30mL 30 mL, Oral, QDAILYPRN, Starting on Mon12/16/22 at 1433, Until Discontinu ed, Routine, Constipati on [facility] benzocaine- menthol (DERMOPLAST ) 20-0.5 % topical spray 12-16 19:33: 51 Yes Topical, PRN, Starting on Mon12/16/22 at 1433, Until Discontinu ed, Routine, Perineum discomfort [facility] miSOPROStoL (CYTOTEC) tablet 1,000 mcg 12-16 16:15: 00 12-16 14:45 :00 No 1000ug 1,000 mcg, Rectal, ONCE, 1 dose, On Mon12/16/22 at 1115, Routine [facility] carboprost (HEMABATE) injection 250 mcg 12-16 14:55: 00 12-16 14:33 :00 No 250ug 250 mcg, Intramuscu lar, ONCE, 1 dose, On Mon12/16/22 at 1000, Routine [facility] methylergon ovine (METHERGINE ) injection 0.2 mg 12-16 14:54: 00 12-16 14:22 :00 No .2mg 0.2 mg, Intramuscu lar, ONCE NOW, 1 dose, On Mon12/16/22 at 1000, Routine [facility] diphenoxyla te-atropine (LOMOTIL) 2.5-0.025 mg tablet 1 tablet 12-16 14:29: 25 Yes 1{tbl} 1 tablet, Oral, Q6HPRN, Starting on Mon12/16/22 at 0929, Until Discontinu ed, Routine, diarrhea [facility] ibuprofen (IBU) tablet 600 mg 12-16 14:09: 58 12-16 19:33 :54 No 600mg 600 mg, Oral, Q6HPRN, Starting on Mon12/16/22 at 0909, Until Mon12/16/22 at 1433, Routine, Pain (scale 1-3) [facility] oxytocin (PITOCIN) 30 units in NS 500 mL IV infusion 12-16 14:09: 48 12-16 19:33 :54 No 300mL/h 300 mL/hr, IV Infusion, SEE-INSTRU CTIONS, Starting on Mon12/16/[address] at 300 mL/hr for 1 hr then 150 mL/hr for 1 hr. For post delivery uterotonic .
[facility] amnioinfusi on IV infusion via GRAVITY 0.9 NaCL 1,000 mL 12-16 12:30: 00 12-16 12:30 :00 No 1000mL at 750 mL/hr, Intrauteri ne, ONCE, 1 dose, On Mon12/16/22 at 0730, JERONIMO
In fuse via gravity 750 ml over 1 hour.&nbsp ; Once 750 mL has been infused, the infusion may be discontinu ed or decreased to 100 mL/hr until the liter is complete.& nbsp;&nbsp ;Notify Alternative Education Teacher if uterine resting tone exceeds 25 mmHg at any time during the amnioinfus ion. Obst etrics (GARRETT) Aminoinfus ion Orders
[facility] ondansetron (ZOFRAN (PF)) injection 4 mg 12-16 08:15: 00 12-16 14:01 :00 No 4mg 4 mg, Slow IV Push, ONCE, On Mon12/16/22 at 0315, For 1 dose
Do ses of ondansetro n 16 mg and above need to be administer ed via IV piggyback. For Dose >=24mg ECG monitoring is advisable.
[facility] ropivacaine 0.2 % (NAROPIN (PF)) epidural infusion 12-16 05:52: 00 12-16 16:22 :45 No Epidural, CONTINUOUS PRN, Starting on Mon12/16/22 at 0052, Until Discontinu ed, Routine, Intra-op [facility] lidocaine-e pinephrine (XYLOCAINE W/EPINEPHRI NE) 1.5 %-1:200,000 injection 12-16 05:49: 00 12-16 16:22 :45 No Intraderma l, ONCE INTRA PROCEDURE, Starting on Mon12/16/22 at 0049, Until Discontinu ed, Routine, Intra-op [facility] sodium citrate-cit rickey acid (BICITRA) 500-334 mg/5 mL solution 30 mL 12-16 04:46: 41 12-16 05:26 :00 No 30mL 30 mL, Oral, PRE-PROCED URE ONCE, 1 dose, Starting on Mon12/15/22 at 2346, Until Mon12/16/22 at 0026, Routine, Surgery/Pr ocedure [facility] lactated ringers IV infusion 500 mL 12-16 04:46: 41 12-16 05:11 :19 No 500mL at 999 mL/hr, 500 mL, IV Infusion, PRN - SEE INSTRUCTIO NS, 1 dose, Starting on Mon12/15/22 at 2346, Until Mon12/16/22 at 0011, Routine [facility] oxytocin (PITOCIN) 30 units in NS 500 mL IV infusion 12-15 21:03: 38 12-16 19:33 :54 No 2mU/min at 2-40 mL/hr, IV Infusion, TITRATE, Starting on Mon12/15/22 at 1603, Until Mon12/16/22 at 1433, JERONIMO [facility] D5W-LR IV infusion 1,000 mL 12-15 21:01: 30 12-16 19:33 :54 No 1000mL at 1-125 mL/hr, IV Infusion, TITRATE, Starting on Mon12/15/22 at 1601, Until Mon12/16/22 at 1433, Routine [facility] ascorbic acid, vitamin C, 500 mg tablet 09-26 00:00: 00 01-07 00:00 :00 No [id number] 500mg Take 1 tablet by mouth in the morning and 1 tablet at noon and 1 tablet in the evening. [facility] ferrous sulfate 325 mg (65 mg iron) tablet 09-26 00:00: 00 12-17 00:00 :00 No [id number] 325mg Take 1 tablet by mouth in the morning and 1 tablet in the evening. [facility] metroNIDAZO LE 500 mg tablet 05-10 00:00: 00 05-11 05:59 :00 No [id number] 2000mg Take 4 tablets by mouth once now for 1 dose. [facility] ampicillin 500 mg capsule 05-02 00:00: 00 05-13 05:59 :00 No [id number] 500mg Take 1 capsule by mouth 4 (four) times daily for 10 days. [facility] multivitami n ( VITAMIN) tablet 04-27 00:00: 00 Yes [id number] 1{tbl} Take 1 tablet by mouth in the morning. [facility] multivitami n ( VITAMIN) tablet 04-27 00:00: 00 03-08 00:00 :00 No [id number] 1{tbl} Take 1 tablet by mouth in the morning. [facility] proMETHazin e 25 mg tablet 04-27 00:00: 00 01-07 00:00 :00 No [id number] 25mg Take 1 tablet by mouth every 6 (six) hours as needed for Nausea and Vomiting (N/V). [facility] Nitrofurant oin&Nit. Macrocryst 100 mg capsule 04-17 00:00: 00 11-23 00:00 :00 No TAKE 1 CAPSULE BY MOUTH EVERY 12 HOURS FOR 7 DAYS [facility] No known medications 2021-04 10:28: 59 No No known medication s [facility] doxycycline hyclate 100 mg capsule 2021-04 00:00: 00 02-19 05:59 :00 No [id number] 100mg Take 1 capsule by mouth every 12 (twelve) hours for 7 days. [facility] azithromyci n (ZITHROMAX) 500 mg tablet 2021-04 00:00: 00 02-11 05:59 :00 No [id number] 1000mg Take 2 tablets by mouth once now for 1 dose. [facility] No known medications 07-01 16:12: 46 No [facility] azithromyci n 500 mg tablet 08-31 00:00: 00 05-26 00:00 :00 No TAKE 2 TABLETS BY MOUTH ONCE NOW FOR 1 DOSE [facility] Immunizations Ordered Immunization Name Filled Immunization Name Date Status Comments Source TDAP 2022-10-07 00:00:00 Completed [facility] TDAP 2022-10-07 00:00:00 Completed [facility] TDAP 2022-10-07 00:00:00 Completed [facility] TDAP 2022-10-07 00:00:00 Completed [facility] TDAP 2022-10-07 00:00:00 Completed [facility] TDAP 2022-10-07 00:00:00 Completed [facility] TDAP 2022-10-07 00:00:00 Completed [facility] TDAP 2022-10-07 00:00:00 Completed [facility] TDAP 2022-10-07 00:00:00 Completed [facility] TDAP 2022-10-07 00:00:00 Completed [facility] TDAP 2022-10-07 00:00:00 Completed [facility] TDAP 2022-10-07 00:00:00 Completed [facility] TDAP 2022-10-07 00:00:00 Completed [facility] HPV9 2021-05-26 00:00:00 Completed [facility] HPV9 2021-05-26 00:00:00 Completed [facility] HPV9 2021-05-26 00:00:00 Completed [facility] HPV9 2021-05-26 00:00:00 Completed [facility] HPV9 2021-05-26 00:00:00 Completed [facility] HPV9 2021-05-26 00:00:00 Completed [facility] HPV9 2021-05-26 00:00:00 Completed [facility] HPV9 2021-05-26 00:00:00 Completed [facility] HPV9 2021-05-26 00:00:00 Completed [facility] HPV9 2021-05-26 00:00:00 Completed [facility] HPV9 2021-05-26 00:00:00 Completed [facility] HPV9 2021-05-26 00:00:00 Completed [facility] HPV9 2021-05-26 00:00:00 Completed [facility] HPV9 2021-05-26 00:00:00 Completed [facility] HPV9 2021-05-26 00:00:00 Completed [facility] HPV9 2021-05-26 00:00:00 Completed [facility] HPV9 2021-05-26 00:00:00 Completed [facility] HPV9 2021-05-26 00:00:00 Completed [facility] HPV9 2021-05-26 00:00:00 Completed [facility] HPV9 2021-05-26 00:00:00 Completed [facility] HPV9 2021-05-26 00:00:00 Completed [facility] HPV9 2021-05-26 00:00:00 Completed [facility] HPV9 2021-05-26 00:00:00 Completed [facility] HPV9 2021-05-26 00:00:00 Completed [facility] HPV9 2021-05-26 00:00:00 Completed [facility] HPV9 2021-05-26 00:00:00 Completed [facility] HPV9 2021-05-26 00:00:00 Completed [facility] HPV9 2021-05-26 00:00:00 Completed [facility] HPV9 2021-05-26 00:00:00 Completed [facility] HPV9 2021-05-26 00:00:00 Completed [facility] HPV9 2021-05-26 00:00:00 Completed [facility] HPV9 2021-05-26 00:00:00 Completed [facility] HPV9 2021-05-26 00:00:00 Completed [facility] HPV9 2021-05-26 00:00:00 Completed [facility] HPV9 2021-05-26 00:00:00 Completed [facility] HPV9 2021-05-26 00:00:00 Completed [facility] HPV9 2021-05-26 00:00:00 Completed [facility] HPV9 2021-05-26 00:00:00 Completed [facility] HPV9 2021-05-26 00:00:00 Completed [facility] HPV9 2021-05-26 00:00:00 Completed [facility] HPV9 2021-05-26 00:00:00 Completed [facility] HPV9 2021-05-26 00:00:00 Completed [facility] HPV9 2021-05-26 00:00:00 Completed [facility] HPV9 2021-05-26 00:00:00 Completed [facility] HPV9 2021-05-26 00:00:00 Completed [facility] HPV9 2021-05-26 00:00:00 Completed [facility] HPV9 2021-05-26 00:00:00 Completed [facility] HPV9 2021-05-26 00:00:00 Completed [facility] HPV9 2021-05-26 00:00:00 Completed [facility] HPV9 2021-05-26 00:00:00 Completed [facility] HPV9 2021-05-26 00:00:00 Completed [facility] HPV9 2021-05-26 00:00:00 Completed [facility] HPV9 2021-05-26 00:00:00 Completed [facility] HPV9 2021-05-26 00:00:00 Completed [facility] HPV9 2021-05-26 00:00:00 Completed [facility] HPV9 2021-05-26 00:00:00 Completed [facility] HPV9 2021-05-26 00:00:00 Completed [facility] HPV9 2021-05-26 00:00:00 Completed [facility] HPV9 2021-05-26 00:00:00 Completed [facility] HPV9 2021-05-26 00:00:00 Completed [facility] HPV9 2021-05-26 00:00:00 Completed [facility] HPV9 2021-05-26 00:00:00 Completed [facility] HPV9 2021-05-26 00:00:00 Completed [facility] HPV9 2021-05-26 00:00:00 Completed [facility] HPV9 2021-05-26 00:00:00 Completed [facility] HPV9 2021-05-26 00:00:00 Completed [facility] HPV9 2021-05-26 00:00:00 Completed [facility] HPV9 2021-05-26 00:00:00 Completed [facility] Influenza Virus Vaccine Quad .5 mL IM 6+ MO 2020-03-16 00:00:00 Completed [facility] Influenza Virus Vaccine Quad .5 mL IM 6+ MO 2020-03-16 00:00:00 Completed [facility] Influenza Virus Vaccine Quad .5 mL IM 6+ MO 2020-03-16 00:00:00 Completed [facility] Influenza Virus Vaccine Quad .5 mL IM 6+ MO 2020-03-16 00:00:00 Completed [facility] Influenza Virus Vaccine Quad .5 mL IM 6+ MO 2020-03-16 00:00:00 Completed [facility] Influenza Virus Vaccine Quad .5 mL IM 6+ MO 2020-03-16 00:00:00 Completed [facility] Influenza Virus Vaccine Quad .5 mL IM 6+ MO 2020-03-16 00:00:00 Completed [facility] Influenza Virus Vaccine Quad .5 mL IM 6+ MO 2020-03-16 00:00:00 Completed [facility] Influenza Virus Vaccine Quad .5 mL IM 6+ MO 2020-03-16 00:00:00 Completed [facility] Influenza Virus Vaccine Quad .5 mL IM 6+ MO 2020-03-16 00:00:00 Completed [facility] Influenza Virus Vaccine Quad .5 mL IM 6+ MO 2020-03-16 00:00:00 Completed [facility] Influenza Virus Vaccine Quad .5 mL IM 6+ MO 2020-03-16 00:00:00 Completed [facility] Influenza Virus Vaccine Quad .5 mL IM 6+ MO 2020-03-16 00:00:00 Completed [facility] Influenza Virus Vaccine Quad .5 mL IM 6+ MO 2020-03-16 00:00:00 Completed [facility] Influenza Virus Vaccine Quad .5 mL IM 6+ MO 2020-03-16 00:00:00 Completed [facility] Influenza Virus Vaccine Quad .5 mL IM 6+ MO 2020-03-16 00:00:00 Completed [facility] Influenza Virus Vaccine Quad .5 mL IM 6+ MO 2020-03-16 00:00:00 Completed [facility] Influenza Virus Vaccine Quad .5 mL IM 6+ MO 2020-03-16 00:00:00 Completed [facility] Influenza Virus Vaccine Quad .5 mL IM 6+ MO 2020-03-16 00:00:00 Completed [facility] Influenza Virus Vaccine Quad .5 mL IM 6+ MO 2020-03-16 00:00:00 Completed [facility] Influenza Virus Vaccine Quad .5 mL IM 6+ MO 2020-03-16 00:00:00 Completed [facility] Influenza Virus Vaccine Quad .5 mL IM 6+ MO (FLUZONE/FLULAVAL/FL UARIX) 2020-03-16 00:00:00 Completed [facility] Influenza Virus Vaccine Quad .5 mL IM 6+ MO (FLUZONE/FLULAVAL/FL UARIX) 2020-03-16 00:00:00 Completed [facility] Influenza Virus Vaccine Quad .5 mL IM 6+ MO (FLUZONE/FLULAVAL/FL UARIX) 2020-03-16 00:00:00 Completed [facility] Influenza Virus Vaccine Quad .5 mL IM 6+ MO (FLUZONE/FLULAVAL/FL UARIX) 2020-03-16 00:00:00 Completed [facility] Influenza Virus Vaccine Quad .5 mL IM 6+ MO (FLUZONE/FLULAVAL/FL UARIX) 2020-03-16 00:00:00 Completed [facility] Influenza Virus Vaccine Quad .5 mL IM 6+ MO (FLUZONE/FLULAVAL/FL UARIX) 2020-03-16 00:00:00 Completed [facility] Influenza Virus Vaccine Quad .5 mL IM 6+ MO 2020-03-16 00:00:00 Completed [facility] Influenza Virus Vaccine Quad .5 mL IM 6+ MO 2020-03-16 00:00:00 Completed [facility] Influenza Virus Vaccine Quad .5 mL IM 6+ MO 2020-03-16 00:00:00 Completed [facility] Influenza Virus Vaccine Quad .5 mL IM 6+ MO 2020-03-16 00:00:00 Completed [facility] Influenza Virus Vaccine Quad .5 mL IM 6+ MO 2020-03-16 00:00:00 Completed [facility] Influenza Virus Vaccine Quad .5 mL IM 6+ MO 2020-03-16 00:00:00 Completed [facility] Influenza Virus Vaccine Quad .5 mL IM 6+ MO 2020-03-16 00:00:00 Completed [facility] Influenza Virus Vaccine Quad .5 mL IM 6+ MO 2020-03-16 00:00:00 Completed [facility] Influenza Virus Vaccine Quad .5 mL IM 6+ MO 2020-03-16 00:00:00 Completed [facility] Influenza Virus Vaccine Quad .5 mL IM 6+ MO 2020-03-16 00:00:00 Completed [facility] Influenza Virus Vaccine Quad .5 mL IM 6+ MO 2020-03-16 00:00:00 Completed [facility] Influenza Virus Vaccine Quad .5 mL IM 6+ MO 2020-03-16 00:00:00 Completed [facility] Influenza Virus Vaccine Quad .5 mL IM 6+ MO 2020-03-16 00:00:00 Completed [facility] Influenza Virus Vaccine Quad .5 mL IM 6+ MO 2020-03-16 00:00:00 Completed [facility] Influenza Virus Vaccine Quad .5 mL IM 6+ MO 2020-03-16 00:00:00 Completed [facility] Influenza Virus Vaccine Quad .5 mL IM 6+ MO 2020-03-16 00:00:00 Completed [facility] Influenza Virus Vaccine Quad .5 mL IM 6+ MO 2020-03-16 00:00:00 Completed [facility] Influenza Virus Vaccine Quad .5 mL IM 6+ MO 2020-03-16 00:00:00 Completed [facility] Influenza Virus Vaccine Quad .5 mL IM 6+ MO 2020-03-16 00:00:00 Completed [facility] Influenza Virus Vaccine Quad .5 mL IM 6+ MO 2020-03-16 00:00:00 Completed [facility] Influenza Virus Vaccine Quad .5 mL IM 6+ MO 2020-03-16 00:00:00 Completed [facility] Influenza Virus Vaccine Quad .5 mL IM 6+ MO 2020-03-16 00:00:00 Completed [facility] Influenza Virus Vaccine Quad .5 mL IM 6+ MO 2020-03-16 00:00:00 Completed [facility] Influenza Virus Vaccine Quad .5 mL IM 6+ MO 2020-03-16 00:00:00 Completed [facility] Influenza Virus Vaccine Quad .5 mL IM 6+ MO 2020-03-16 00:00:00 Completed [facility] Influenza Virus Vaccine Quad .5 mL IM 6+ MO 2020-03-16 00:00:00 Completed [facility] Influenza Virus Vaccine Quad .5 mL IM 6+ MO 2020-03-16 00:00:00 Completed [facility] Influenza Virus Vaccine Quad .5 mL IM 6+ MO 2020-03-16 00:00:00 Completed [facility] Influenza Virus Vaccine Quad .5 mL IM 6+ MO 2020-03-16 00:00:00 Completed [facility] Influenza Virus Vaccine Quad .5 mL IM 6+ MO 2020-03-16 00:00:00 Completed [facility] Influenza Virus Vaccine Quad .5 mL IM 6+ MO 2020-03-16 00:00:00 Completed [facility] Influenza Virus Vaccine Quad .5 mL IM 6+ MO 2020-03-16 00:00:00 Completed [facility] Influenza Virus Vaccine Quad .5 mL IM 6+ MO 2020-03-16 00:00:00 Completed [facility] Influenza Virus Vaccine Quad .5 mL IM 6+ MO 2020-03-16 00:00:00 Completed [facility] Influenza Virus Vaccine Quad .5 mL IM 6+ MO 2020-03-16 00:00:00 Completed [facility] Influenza Virus Vaccine Quad .5 mL IM 6+ MO 2020-03-16 00:00:00 Completed [facility] Influenza Virus Vaccine Quad .5 mL IM 6+ MO 2020-03-16 00:00:00 Completed [facility] Influenza Virus Vaccine Quad .5 mL IM 6+ MO 2020-03-16 00:00:00 Completed [facility] Influenza Virus Vaccine Quad .5 mL IM 6+ MO 2020-03-16 00:00:00 Completed [facility] Influenza Virus Vaccine Quad .5 mL IM 6+ MO 2020-03-16 00:00:00 Completed [facility] Influenza Virus Vaccine Quad .5 mL IM 6+ MO 2020-03-16 00:00:00 Completed [facility] HPV9 2018-09-07 00:00:00 Completed [facility] HPV9 2018-09-07 00:00:00 Completed [facility] HPV9 2018-09-07 00:00:00 Completed [facility] HPV9 2018-09-07 00:00:00 Completed [facility] HPV9 2018-09-07 00:00:00 Completed [facility] HPV9 2018-09-07 00:00:00 Completed [facility] HPV9 2018-09-07 00:00:00 Completed [facility] HPV9 2018-09-07 00:00:00 Completed [facility] HPV9 2018-09-07 00:00:00 Completed [facility] HPV9 2018-09-07 00:00:00 Completed [facility] HPV9 2018-09-07 00:00:00 Completed [facility] HPV9 2018-09-07 00:00:00 Completed [facility] HPV9 2018-09-07 00:00:00 Completed [facility] HPV9 2018-09-07 00:00:00 Completed [facility] HPV9 2018-09-07 00:00:00 Completed [facility] HPV9 2018-09-07 00:00:00 Completed [facility] HPV9 2018-09-07 00:00:00 Completed [facility] HPV9 2018-09-07 00:00:00 Completed [facility] HPV9 2018-09-07 00:00:00 Completed [facility] HPV9 2018-09-07 00:00:00 Completed [facility] HPV9 2018-09-07 00:00:00 Completed [facility] HPV9 2018-09-07 00:00:00 Completed [facility] HPV9 2018-09-07 00:00:00 Completed [facility] HPV9 2018-09-07 00:00:00 Completed [facility] HPV9 2018-09-07 00:00:00 Completed [facility] HPV9 2018-09-07 00:00:00 Completed [facility] HPV9 2018-09-07 00:00:00 Completed [facility] HPV9 2018-09-07 00:00:00 Completed [facility] HPV9 2018-09-07 00:00:00 Completed [facility] HPV9 2018-09-07 00:00:00 Completed [facility] HPV9 2018-09-07 00:00:00 Completed [facility] HPV9 2018-09-07 00:00:00 Completed [facility] HPV9 2018-09-07 00:00:00 Completed [facility] HPV9 2018-09-07 00:00:00 Completed [facility] HPV9 2018-09-07 00:00:00 Completed [facility] HPV9 2018-09-07 00:00:00 Completed [facility] HPV9 2018-09-07 00:00:00 Completed [facility] HPV9 2018-09-07 00:00:00 Completed [facility] HPV9 2018-09-07 00:00:00 Completed [facility] HPV9 2018-09-07 00:00:00 Completed [facility] HPV9 2018-09-07 00:00:00 Completed [facility] HPV9 2018-09-07 00:00:00 Completed [facility] HPV9 2018-09-07 00:00:00 Completed [facility] HPV9 2018-09-07 00:00:00 Completed [facility] HPV9 2018-09-07 00:00:00 Completed [facility] HPV9 2018-09-07 00:00:00 Completed [facility] HPV9 2018-09-07 00:00:00 Completed [facility] HPV9 2018-09-07 00:00:00 Completed [facility] HPV9 2018-09-07 00:00:00 Completed [facility] HPV9 2018-09-07 00:00:00 Completed [facility] HPV9 2018-09-07 00:00:00 Completed [facility] HPV9 2018-09-07 00:00:00 Completed [facility] HPV9 2018-09-07 00:00:00 Completed [facility] HPV9 2018-09-07 00:00:00 Completed [facility] HPV9 2018-09-07 00:00:00 Completed [facility] HPV9 2018-09-07 00:00:00 Completed [facility] HPV9 2018-09-07 00:00:00 Completed [facility] HPV9 2018-09-07 00:00:00 Completed [facility] HPV9 2018-09-07 00:00:00 Completed [facility] HPV9 2018-09-07 00:00:00 Completed [facility] HPV9 2018-09-07 00:00:00 Completed [facility] HPV9 2018-09-07 00:00:00 Completed [facility] HPV9 2018-09-07 00:00:00 Completed [facility] HPV9 2018-09-07 00:00:00 Completed [facility] HPV9 2018-09-07 00:00:00 Completed [facility] HPV9 2018-09-07 00:00:00 Completed [facility] HPV9 2018-09-07 00:00:00 Completed [facility] HPV9 2018-09-07 00:00:00 Completed [facility] HPV9 2018-07-03 00:00:00 Completed [facility] HPV9 2018-07-03 00:00:00 Completed [facility] HPV9 2018-07-03 00:00:00 Completed [facility] HPV9 2018-07-03 00:00:00 Completed [facility] HPV9 2018-07-03 00:00:00 Completed [facility] HPV9 2018-07-03 00:00:00 Completed [facility] HPV9 2018-07-03 00:00:00 Completed [facility] HPV9 2018-07-03 00:00:00 Completed [facility] HPV9 2018-07-03 00:00:00 Completed [facility] HPV9 2018-07-03 00:00:00 Completed [facility] HPV9 2018-07-03 00:00:00 Completed [facility] HPV9 2018-07-03 00:00:00 Completed [facility] HPV9 2018-07-03 00:00:00 Completed [facility] HPV9 2018-07-03 00:00:00 Completed [facility] HPV9 2018-07-03 00:00:00 Completed [facility] HPV9 2018-07-03 00:00:00 Completed [facility] HPV9 2018-07-03 00:00:00 Completed [facility] HPV9 2018-07-03 00:00:00 Completed [facility] HPV9 2018-07-03 00:00:00 Completed [facility] HPV9 2018-07-03 00:00:00 Completed [facility] HPV9 2018-07-03 00:00:00 Completed [facility] HPV9 2018-07-03 00:00:00 Completed [facility] HPV9 2018-07-03 00:00:00 Completed [facility] HPV9 2018-07-03 00:00:00 Completed [facility] HPV9 2018-07-03 00:00:00 Completed [facility] HPV9 2018-07-03 00:00:00 Completed [facility] HPV9 2018-07-03 00:00:00 Completed [facility] HPV9 2018-07-03 00:00:00 Completed [facility] HPV9 2018-07-03 00:00:00 Completed [facility] HPV9 2018-07-03 00:00:00 Completed [facility] HPV9 2018-07-03 00:00:00 Completed [facility] HPV9 2018-07-03 00:00:00 Completed [facility] HPV9 2018-07-03 00:00:00 Completed [facility] HPV9 2018-07-03 00:00:00 Completed [facility] HPV9 2018-07-03 00:00:00 Completed [facility] HPV9 2018-07-03 00:00:00 Completed [facility] HPV9 2018-07-03 00:00:00 Completed [facility] HPV9 2018-07-03 00:00:00 Completed [facility] HPV9 2018-07-03 00:00:00 Completed [facility] HPV9 2018-07-03 00:00:00 Completed [facility] HPV9 2018-07-03 00:00:00 Completed [facility] HPV9 2018-07-03 00:00:00 Completed [facility] HPV9 2018-07-03 00:00:00 Completed [facility] HPV9 2018-07-03 00:00:00 Completed [facility] HPV9 2018-07-03 00:00:00 Completed [facility] HPV9 2018-07-03 00:00:00 Completed [facility] HPV9 2018-07-03 00:00:00 Completed [facility] HPV9 2018-07-03 00:00:00 Completed [facility] HPV9 2018-07-03 00:00:00 Completed [facility] HPV9 2018-07-03 00:00:00 Completed [facility] HPV9 2018-07-03 00:00:00 Completed [facility] HPV9 2018-07-03 00:00:00 Completed [facility] HPV9 2018-07-03 00:00:00 Completed [facility] HPV9 2018-07-03 00:00:00 Completed [facility] HPV9 2018-07-03 00:00:00 Completed [facility] HPV9 2018-07-03 00:00:00 Completed [facility] HPV9 2018-07-03 00:00:00 Completed [facility] HPV9 2018-07-03 00:00:00 Completed [facility] HPV9 2018-07-03 00:00:00 Completed [facility] HPV9 2018-07-03 00:00:00 Completed [facility] HPV9 2018-07-03 00:00:00 Completed [facility] HPV9 2018-07-03 00:00:00 Completed [facility] HPV9 2018-07-03 00:00:00 Completed [facility] HPV9 2018-07-03 00:00:00 Completed [facility] HPV9 2018-07-03 00:00:00 Completed [facility] HPV9 2018-07-03 00:00:00 Completed [facility] HPV9 2018-07-03 00:00:00 Completed [facility] HPV9 2018-07-03 00:00:00 Completed [facility] Influenza Virus Vaccine Quad .5 mL IM 6+ MO 2017-01-01 00:00:00 Completed [facility] Influenza Virus Vaccine Quad .5 mL IM 6+ MO 2017-01-01 00:00:00 Completed [facility] Influenza Virus Vaccine Quad .5 mL IM 6+ MO 2017-01-01 00:00:00 Completed [facility] Influenza Virus Vaccine Quad .5 mL IM 6+ MO 2017-01-01 00:00:00 Completed [facility] Influenza Virus Vaccine Quad .5 mL IM 6+ MO 2017-01-01 00:00:00 Completed [facility] Influenza Virus Vaccine Quad .5 mL IM 6+ MO 2017-01-01 00:00:00 Completed [facility] Influenza Virus Vaccine Quad .5 mL IM 6+ MO 2017-01-01 00:00:00 Completed [facility] Influenza Virus Vaccine Quad .5 mL IM 6+ MO (FLUZONE/FLULAVAL/FL UARIX) 2017-01-01 00:00:00 Completed [facility] Influenza Virus Vaccine Quad .5 mL IM 6+ MO (FLUZONE/FLULAVAL/FL UARIX) 2017-01-01 00:00:00 Completed [facility] Influenza Virus Vaccine Quad .5 mL IM 6+ MO (FLUZONE/FLULAVAL/FL UARIX) 2017-01-01 00:00:00 Completed [facility] Influenza Virus Vaccine Quad .5 mL IM 6+ MO (FLUZONE/FLULAVAL/FL UARIX) 2017-01-01 00:00:00 Completed [facility] Influenza Virus Vaccine Quad .5 mL IM 6+ MO (FLUZONE/FLULAVAL/FL UARIX) 2017-01-01 00:00:00 Completed [facility] Influenza Virus Vaccine Quad .5 mL IM 6+ MO (FLUZONE/FLULAVAL/FL UARIX) 2017-01-01 00:00:00 Completed [facility] HEPATITIS A 2011-11-30 00:00:00 Completed [facility] HPV 2011-11-30 00:00:00 Completed [facility] Meningococcal Polysaccharide (groups A, C, Y and W-135) conjugate vaccine (MCV4P) 2011-11-30 00:00:00 Completed [facility] TDAP 2011-11-30 00:00:00 Completed [facility] Varicella (varivax)(chicken pox) 2011-11-30 00:00:00 Completed [facility] HEPATITIS A 2011-11-30 00:00:00 Completed [facility] HPV 2011-11-30 00:00:00 Completed [facility] Meningococcal Polysaccharide (groups A, C, Y and W-135) conjugate vaccine (MCV4P) 2011-11-30 00:00:00 Completed [facility] TDAP 2011-11-30 00:00:00 Completed [facility] Varicella (varivax)(chicken pox) 2011-11-30 00:00:00 Completed [facility] HEPATITIS A 2011-11-30 00:00:00 Completed [facility] HPV 2011-11-30 00:00:00 Completed [facility] Meningococcal Polysaccharide (groups A, C, Y and W-135) conjugate vaccine (MCV4P) 2011-11-30 00:00:00 Completed [facility] TDAP 2011-11-30 00:00:00 Completed [facility] Varicella (varivax)(chicken pox) 2011-11-30 00:00:00 Completed [facility] HEPATITIS A 2011-11-30 00:00:00 Completed [facility] HPV 2011-11-30 00:00:00 Completed [facility] Meningococcal Polysaccharide (groups A, C, Y and W-135) conjugate vaccine (MCV4P) 2011-11-30 00:00:00 Completed [facility] TDAP 2011-11-30 00:00:00 Completed [facility] Varicella (varivax)(chicken pox) 2011-11-30 00:00:00 Completed [facility] HEPATITIS A 2011-11-30 00:00:00 Completed [facility] HPV 2011-11-30 00:00:00 Completed [facility] Meningococcal Polysaccharide (groups A, C, Y and W-135) conjugate vaccine (MCV4P) 2011-11-30 00:00:00 Completed [facility] TDAP 2011-11-30 00:00:00 Completed [facility] Varicella (varivax)(chicken pox) 2011-11-30 00:00:00 Completed [facility] HEPATITIS A 2011-11-30 00:00:00 Completed [facility] HPV 2011-11-30 00:00:00 Completed [facility] Meningococcal Polysaccharide (groups A, C, Y and W-135) conjugate vaccine (MCV4P) 2011-11-30 00:00:00 Completed [facility] TDAP 2011-11-30 00:00:00 Completed [facility] Varicella (varivax)(chicken pox) 2011-11-30 00:00:00 Completed [facility] HEPATITIS A 2011-11-30 00:00:00 Completed [facility] HPV 2011-11-30 00:00:00 Completed [facility] Meningococcal Polysaccharide (groups A, C, Y and W-135) conjugate vaccine (MCV4P) 2011-11-30 00:00:00 Completed [facility] TDAP 2011-11-30 00:00:00 Completed [facility] Varicella (varivax)(chicken pox) 2011-11-30 00:00:00 Completed [facility] HEPATITIS A 2011-11-30 00:00:00 Completed [facility] HPV 2011-11-30 00:00:00 Completed [facility] Meningococcal Polysaccharide (groups A, C, Y and W-135) conjugate vaccine (MCV4P) 2011-11-30 00:00:00 Completed [facility] TDAP 2011-11-30 00:00:00 Completed [facility] Varicella (varivax)(chicken pox) 2011-11-30 00:00:00 Completed [facility] HEPATITIS A 2011-11-30 00:00:00 Completed [facility] HPV 2011-11-30 00:00:00 Completed [facility] Meningococcal Polysaccharide (groups A, C, Y and W-135) conjugate vaccine (MCV4P) 2011-11-30 00:00:00 Completed [facility] TDAP 2011-11-30 00:00:00 Completed [facility] Varicella (varivax)(chicken pox) 2011-11-30 00:00:00 Completed [facility] HEPATITIS A 2011-11-30 00:00:00 Completed [facility] HPV 2011-11-30 00:00:00 Completed [facility] Meningococcal Polysaccharide (groups A, C, Y and W-135) conjugate vaccine (MCV4P) 2011-11-30 00:00:00 Completed [facility] TDAP 2011-11-30 00:00:00 Completed [facility] Varicella (varivax)(chicken pox) 2011-11-30 00:00:00 Completed [facility] HEPATITIS A 2011-11-30 00:00:00 Completed [facility] HPV 2011-11-30 00:00:00 Completed [facility] Meningococcal Polysaccharide (groups A, C, Y and W-135) conjugate vaccine (MCV4P) 2011-11-30 00:00:00 Completed [facility] TDAP 2011-11-30 00:00:00 Completed [facility] Varicella (varivax)(chicken pox) 2011-11-30 00:00:00 Completed [facility] HEPATITIS A 2011-11-30 00:00:00 Completed [facility] HPV 2011-11-30 00:00:00 Completed [facility] Meningococcal Polysaccharide (groups A, C, Y and W-135) conjugate vaccine (MCV4P) 2011-11-30 00:00:00 Completed [facility] TDAP 2011-11-30 00:00:00 Completed [facility] Varicella (varivax)(chicken pox) 2011-11-30 00:00:00 Completed [facility] HEPATITIS A 2011-11-30 00:00:00 Completed [facility] HPV 2011-11-30 00:00:00 Completed [facility] Meningococcal Polysaccharide (groups A, C, Y and W-135) conjugate vaccine (MCV4P) 2011-11-30 00:00:00 Completed [facility] TDAP 2011-11-30 00:00:00 Completed [facility] Varicella (varivax)(chicken pox) 2011-11-30 00:00:00 Completed [facility] DTaP, Unspecified Formulation 2003-03-18 00:00:00 Completed [facility] MMR 2003-03-18 00:00:00 Completed [facility] IPV 2003-03-18 00:00:00 Completed [facility] DTaP, Unspecified Formulation 2003-03-18 00:00:00 Completed [facility] MMR 2003-03-18 00:00:00 Completed [facility] IPV 2003-03-18 00:00:00 Completed [facility] DTaP, Unspecified Formulation 2003-03-18 00:00:00 Completed [facility] MMR 2003-03-18 00:00:00 Completed [facility] IPV 2003-03-18 00:00:00 Completed [facility] DTaP, Unspecified Formulation 2003-03-18 00:00:00 Completed [facility] MMR 2003-03-18 00:00:00 Completed [facility] IPV 2003-03-18 00:00:00 Completed [facility] DTaP, Unspecified Formulation 2003-03-18 00:00:00 Completed [facility] MMR 2003-03-18 00:00:00 Completed [facility] IPV 2003-03-18 00:00:00 Completed [facility] DTaP, Unspecified Formulation 2003-03-18 00:00:00 Completed [facility] MMR 2003-03-18 00:00:00 Completed [facility] IPV 2003-03-18 00:00:00 Completed [facility] DTaP, Unspecified Formulation 2003-03-18 00:00:00 Completed [facility] MMR 2003-03-18 00:00:00 Completed [facility] IPV 2003-03-18 00:00:00 Completed [facility] DTaP, Unspecified Formulation 2003-03-18 00:00:00 Completed [facility] MMR 2003-03-18 00:00:00 Completed [facility] IPV 2003-03-18 00:00:00 Completed [facility] DTaP, Unspecified Formulation 2003-03-18 00:00:00 Completed [facility] MMR 2003-03-18 00:00:00 Completed [facility] IPV 2003-03-18 00:00:00 Completed [facility] DTaP, Unspecified Formulation 2003-03-18 00:00:00 Completed [facility] MMR 2003-03-18 00:00:00 Completed [facility] IPV 2003-03-18 00:00:00 Completed [facility] DTaP, Unspecified Formulation 2003-03-18 00:00:00 Completed [facility] MMR 2003-03-18 00:00:00 Completed [facility] IPV 2003-03-18 00:00:00 Completed [facility] DTaP, Unspecified Formulation 2003-03-18 00:00:00 Completed [facility] MMR 2003-03-18 00:00:00 Completed [facility] IPV 2003-03-18 00:00:00 Completed [facility] DTaP, Unspecified Formulation 2003-03-18 00:00:00 Completed [facility] MMR 2003-03-18 00:00:00 Completed [facility] IPV 2003-03-18 00:00:00 Completed [facility] DTaP, Unspecified Formulation 2001-01-01 00:00:00 Completed [facility] DTaP, Unspecified Formulation 2001-01-01 00:00:00 Completed [facility] DTaP, Unspecified Formulation 2001-01-01 00:00:00 Completed [facility] DTaP, Unspecified Formulation 2001-01-01 00:00:00 Completed [facility] DTaP, Unspecified Formulation 2001-01-01 00:00:00 Completed [facility] DTaP, Unspecified Formulation 2001-01-01 00:00:00 Completed [facility] DTaP, Unspecified Formulation 2001-01-01 00:00:00 Completed [facility] DTaP, Unspecified Formulation 2001-01-01 00:00:00 Completed [facility] DTaP, Unspecified Formulation 2001-01-01 00:00:00 Completed [facility] DTaP, Unspecified Formulation 2001-01-01 00:00:00 Completed [facility] DTaP, Unspecified Formulation 2001-01-01 00:00:00 Completed [facility] DTaP, Unspecified Formulation 2001-01-01 00:00:00 Completed [facility] DTaP, Unspecified Formulation 2001-01-01 00:00:00 Completed [facility] Hib-HbOC 2000-05-18 00:00:00 Completed [facility] MMR 2000-05-18 00:00:00 Completed [facility] Hib-HbOC 2000-05-18 00:00:00 Completed [facility] MMR 2000-05-18 00:00:00 Completed [facility] Hib-HbOC 2000-05-18 00:00:00 Completed [facility] MMR 2000-05-18 00:00:00 Completed [facility] Hib-HbOC 2000-05-18 00:00:00 Completed [facility] MMR 2000-05-18 00:00:00 Completed [facility] Hib-HbOC 2000-05-18 00:00:00 Completed [facility] MMR 2000-05-18 00:00:00 Completed [facility] Hib-HbOC 2000-05-18 00:00:00 Completed [facility] MMR 2000-05-18 00:00:00 Completed [facility] Hib-HbOC 2000-05-18 00:00:00 Completed [facility] MMR 2000-05-18 00:00:00 Completed [facility] Hib-HbOC 2000-05-18 00:00:00 Completed [facility] MMR 2000-05-18 00:00:00 Completed [facility] Hib-HbOC 2000-05-18 00:00:00 Completed [facility] MMR 2000-05-18 00:00:00 Completed [facility] Hib-HbOC 2000-05-18 00:00:00 Completed [facility] MMR 2000-05-18 00:00:00 Completed [facility] Hib-HbOC 2000-05-18 00:00:00 Completed [facility] MMR 2000-05-18 00:00:00 Completed [facility] Hib-HbOC 2000-05-18 00:00:00 Completed [facility] MMR 2000-05-18 00:00:00 Completed [facility] Hib-HbOC 2000-05-18 00:00:00 Completed [facility] MMR 2000-05-18 00:00:00 Completed [facility] Hep B, Adol or Pedi Dosage 1999-12-22 00:00:00 Completed [facility] IPV 1999-12-22 00:00:00 Completed [facility] Varicella (varivax)(chicken pox) 1999-12-22 00:00:00 Completed [facility] Hep B, Adol or Pedi Dosage 1999-12-22 00:00:00 Completed [facility] IPV 1999-12-22 00:00:00 Completed [facility] Varicella (varivax)(chicken pox) 1999-12-22 00:00:00 Completed [facility] Hep B, Adol or Pedi Dosage 1999-12-22 00:00:00 Completed [facility] IPV 1999-12-22 00:00:00 Completed [facility] Varicella (varivax)(chicken pox) 1999-12-22 00:00:00 Completed [facility] Hep B, Adol or Pedi Dosage 1999-12-22 00:00:00 Completed [facility] IPV 1999-12-22 00:00:00 Completed [facility] Varicella (varivax)(chicken pox) 1999-12-22 00:00:00 Completed [facility] Hep B, Adol or Pedi Dosage 1999-12-22 00:00:00 Completed [facility] IPV 1999-12-22 00:00:00 Completed [facility] Varicella (varivax)(chicken pox) 1999-12-22 00:00:00 Completed [facility] Hep B, Adol or Pedi Dosage 1999-12-22 00:00:00 Completed [facility] IPV 1999-12-22 00:00:00 Completed [facility] Varicella (varivax)(chicken pox) 1999-12-22 00:00:00 Completed [facility] Hep B, Adol or Pedi Dosage 1999-12-22 00:00:00 Completed [facility] IPV 1999-12-22 00:00:00 Completed [facility] Varicella (varivax)(chicken pox) 1999-12-22 00:00:00 Completed [facility] Hep B, Adol or Pedi Dosage 1999-12-22 00:00:00 Completed [facility] IPV 1999-12-22 00:00:00 Completed [facility] Varicella (varivax)(chicken pox) 1999-12-22 00:00:00 Completed [facility] Hep B, Adol or Pedi Dosage 1999-12-22 00:00:00 Completed [facility] IPV 1999-12-22 00:00:00 Completed [facility] Varicella (varivax)(chicken pox) 1999-12-22 00:00:00 Completed [facility] Hep B, Adol or Pedi Dosage 1999-12-22 00:00:00 Completed [facility] IPV 1999-12-22 00:00:00 Completed [facility] Varicella (varivax)(chicken pox) 1999-12-22 00:00:00 Completed [facility] Hep B, Adol or Pedi Dosage 1999-12-22 00:00:00 Completed [facility] IPV 1999-12-22 00:00:00 Completed [facility] Varicella (varivax)(chicken pox) 1999-12-22 00:00:00 Completed [facility] Hep B, Adol or Pedi Dosage 1999-12-22 00:00:00 Completed [facility] IPV 1999-12-22 00:00:00 Completed [facility] Varicella (varivax)(chicken pox) 1999-12-22 00:00:00 Completed [facility] Hep B, Adol or Pedi Dosage 1999-12-22 00:00:00 Completed [facility] IPV 1999-12-22 00:00:00 Completed [facility] Varicella (varivax)(chicken pox) 1999-12-22 00:00:00 Completed [facility] Hep B, Adol or Pedi Dosage 1999-09-21 00:00:00 Completed [facility] Hep B, Adol or Pedi Dosage 1999-09-21 00:00:00 Completed [facility] Hep B, Adol or Pedi Dosage 1999-09-21 00:00:00 Completed [facility] Hep B, Adol or Pedi Dosage 1999-09-21 00:00:00 Completed [facility] Hep B, Adol or Pedi Dosage 1999-09-21 00:00:00 Completed [facility] Hep B, Adol or Pedi Dosage 1999-09-21 00:00:00 Completed [facility] Hep B, Adol or Pedi Dosage 1999-09-21 00:00:00 Completed [facility] Hep B, Adol or Pedi Dosage 1999-09-21 00:00:00 Completed [facility] Hep B, Adol or Pedi Dosage 1999-09-21 00:00:00 Completed [facility] Hep B, Adol or Pedi Dosage 1999-09-21 00:00:00 Completed [facility] Hep B, Adol or Pedi Dosage 1999-09-21 00:00:00 Completed [facility] Hep B, Adol or Pedi Dosage 1999-09-21 00:00:00 Completed [facility] Hep B, Adol or Pedi Dosage 1999-09-21 00:00:00 Completed [facility] DTaP, Unspecified Formulation 1999-06-24 00:00:00 Completed [facility] Hep B, Adol or Pedi Dosage 1999-06-24 00:00:00 Completed [facility] Hib-HbOC 1999-06-24 00:00:00 Completed [facility] DTaP, Unspecified Formulation 1999-06-24 00:00:00 Completed [facility] Hep B, Adol or Pedi Dosage 1999-06-24 00:00:00 Completed [facility] Hib-HbOC 1999-06-24 00:00:00 Completed [facility] DTaP, Unspecified Formulation 1999-06-24 00:00:00 Completed [facility] Hep B, Adol or Pedi Dosage 1999-06-24 00:00:00 Completed [facility] Hib-HbOC 1999-06-24 00:00:00 Completed [facility] DTaP, Unspecified Formulation 1999-06-24 00:00:00 Completed [facility] Hep B, Adol or Pedi Dosage 1999-06-24 00:00:00 Completed [facility] Hib-HbOC 1999-06-24 00:00:00 Completed [facility] DTaP, Unspecified Formulation 1999-06-24 00:00:00 Completed [facility] Hep B, Adol or Pedi Dosage 1999-06-24 00:00:00 Completed [facility] Hib-HbOC 1999-06-24 00:00:00 Completed [facility] DTaP, Unspecified Formulation 1999-06-24 00:00:00 Completed [facility] Hep B, Adol or Pedi Dosage 1999-06-24 00:00:00 Completed [facility] Hib-HbOC 1999-06-24 00:00:00 Completed [facility] DTaP, Unspecified Formulation 1999-06-24 00:00:00 Completed [facility] Hep B, Adol or Pedi Dosage 1999-06-24 00:00:00 Completed [facility] Hib-HbOC 1999-06-24 00:00:00 Completed [facility] DTaP, Unspecified Formulation 1999-06-24 00:00:00 Completed [facility] Hep B, Adol or Pedi Dosage 1999-06-24 00:00:00 Completed [facility] Hib-HbOC 1999-06-24 00:00:00 Completed [facility] DTaP, Unspecified Formulation 1999-06-24 00:00:00 Completed [facility] Hep B, Adol or Pedi Dosage 1999-06-24 00:00:00 Completed [facility] Hib-HbOC 1999-06-24 00:00:00 Completed [facility] DTaP, Unspecified Formulation 1999-06-24 00:00:00 Completed [facility] Hep B, Adol or Pedi Dosage 1999-06-24 00:00:00 Completed [facility] Hib-HbOC 1999-06-24 00:00:00 Completed [facility] DTaP, Unspecified Formulation 1999-06-24 00:00:00 Completed [facility] Hep B, Adol or Pedi Dosage 1999-06-24 00:00:00 Completed [facility] Hib-HbOC 1999-06-24 00:00:00 Completed [facility] DTaP, Unspecified Formulation 1999-06-24 00:00:00 Completed [facility] Hep B, Adol or Pedi Dosage 1999-06-24 00:00:00 Completed [facility] Hib-HbOC 1999-06-24 00:00:00 Completed [facility] DTaP, Unspecified Formulation 1999-06-24 00:00:00 Completed [facility] Hep B, Adol or Pedi Dosage 1999-06-24 00:00:00 Completed [facility] Hib-HbOC 1999-06-24 00:00:00 Completed [facility] DTaP, Unspecified Formulation 1999-04-26 00:00:00 Completed [facility] Hib-HbOC 1999-04-26 00:00:00 Completed [facility] IPV 1999-04-26 00:00:00 Completed [facility] DTaP, Unspecified Formulation 1999-04-26 00:00:00 Completed [facility] Hib-HbOC 1999-04-26 00:00:00 Completed [facility] IPV 1999-04-26 00:00:00 Completed [facility] DTaP, Unspecified Formulation 1999-04-26 00:00:00 Completed [facility] Hib-HbOC 1999-04-26 00:00:00 Completed [facility] IPV 1999-04-26 00:00:00 Completed [facility] DTaP, Unspecified Formulation 1999-04-26 00:00:00 Completed [facility] Hib-HbOC 1999-04-26 00:00:00 Completed [facility] IPV 1999-04-26 00:00:00 Completed [facility] DTaP, Unspecified Formulation 1999-04-26 00:00:00 Completed [facility] Hib-HbOC 1999-04-26 00:00:00 Completed [facility] IPV 1999-04-26 00:00:00 Completed [facility] DTaP, Unspecified Formulation 1999-04-26 00:00:00 Completed [facility] Hib-HbOC 1999-04-26 00:00:00 Completed [facility] IPV 1999-04-26 00:00:00 Completed [facility] DTaP, Unspecified Formulation 1999-04-26 00:00:00 Completed [facility] Hib-HbOC 1999-04-26 00:00:00 Completed [facility] IPV 1999-04-26 00:00:00 Completed [facility] DTaP, Unspecified Formulation 1999-04-26 00:00:00 Completed [facility] Hib-HbOC 1999-04-26 00:00:00 Completed [facility] IPV 1999-04-26 00:00:00 Completed [facility] DTaP, Unspecified Formulation 1999-04-26 00:00:00 Completed [facility] Hib-HbOC 1999-04-26 00:00:00 Completed [facility] IPV 1999-04-26 00:00:00 Completed [facility] DTaP, Unspecified Formulation 1999-04-26 00:00:00 Completed [facility] Hib-HbOC 1999-04-26 00:00:00 Completed [facility] IPV 1999-04-26 00:00:00 Completed [facility] DTaP, Unspecified Formulation 1999-04-26 00:00:00 Completed [facility] Hib-HbOC 1999-04-26 00:00:00 Completed [facility] IPV 1999-04-26 00:00:00 Completed [facility] DTaP, Unspecified Formulation 1999-04-26 00:00:00 Completed [facility] Hib-HbOC 1999-04-26 00:00:00 Completed [facility] IPV 1999-04-26 00:00:00 Completed [facility] DTaP, Unspecified Formulation 1999-04-26 00:00:00 Completed [facility] Hib-HbOC 1999-04-26 00:00:00 Completed [facility] IPV 1999-04-26 00:00:00 Completed [facility] DTaP, Unspecified Formulation 1999-02-18 00:00:00 Completed [facility] Hib-HbOC 1999-02-18 00:00:00 Completed [facility] IPV 1999-02-18 00:00:00 Completed [facility] DTaP, Unspecified Formulation 1999-02-18 00:00:00 Completed [facility] Hib-HbOC 1999-02-18 00:00:00 Completed [facility] IPV 1999-02-18 00:00:00 Completed [facility] DTaP, Unspecified Formulation 1999-02-18 00:00:00 Completed [facility] Hib-HbOC 1999-02-18 00:00:00 Completed [facility] IPV 1999-02-18 00:00:00 Completed [facility] DTaP, Unspecified Formulation 1999-02-18 00:00:00 Completed [facility] Hib-HbOC 1999-02-18 00:00:00 Completed [facility] IPV 1999-02-18 00:00:00 Completed [facility] DTaP, Unspecified Formulation 1999-02-18 00:00:00 Completed [facility] Hib-HbOC 1999-02-18 00:00:00 Completed [facility] IPV 1999-02-18 00:00:00 Completed [facility] DTaP, Unspecified Formulation 1999-02-18 00:00:00 Completed [facility] Hib-HbOC 1999-02-18 00:00:00 Completed [facility] IPV 1999-02-18 00:00:00 Completed [facility] DTaP, Unspecified Formulation 1999-02-18 00:00:00 Completed [facility] Hib-HbOC 1999-02-18 00:00:00 Completed [facility] IPV 1999-02-18 00:00:00 Completed [facility] DTaP, Unspecified Formulation 1999-02-18 00:00:00 Completed [facility] Hib-HbOC 1999-02-18 00:00:00 Completed [facility] IPV 1999-02-18 00:00:00 Completed [facility] DTaP, Unspecified Formulation 1999-02-18 00:00:00 Completed [facility] Hib-HbOC 1999-02-18 00:00:00 Completed [facility] IPV 1999-02-18 00:00:00 Completed [facility] DTaP, Unspecified Formulation 1999-02-18 00:00:00 Completed [facility] Hib-HbOC 1999-02-18 00:00:00 Completed [facility] IPV 1999-02-18 00:00:00 Completed [facility] DTaP, Unspecified Formulation 1999-02-18 00:00:00 Completed [facility] Hib-HbOC 1999-02-18 00:00:00 Completed [facility] IPV 1999-02-18 00:00:00 Completed [facility] DTaP, Unspecified Formulation 1999-02-18 00:00:00 Completed [facility] Hib-HbOC 1999-02-18 00:00:00 Completed [facility] IPV 1999-02-18 00:00:00 Completed [facility] DTaP, Unspecified Formulation 1999-02-18 00:00:00 Completed [facility] Hib-HbOC 1999-02-18 00:00:00 Completed [facility] IPV 1999-02-18 00:00:00 Completed [facility] HPV9 Unknown Completed [facility] HPV9 Unknown Completed [facility] Influenza Virus Vaccine Quad .5 mL IM 6+ MO (FLUZONE/FLULAVAL/FL UARIX) Unknown Completed [facility] HPV9 Unknown Completed [facility] DTaP, Unspecified Formulation Unknown Completed [facility] DTaP, Unspecified Formulation Unknown Completed [facility] DTaP, Unspecified Formulation Unknown Completed [facility] DTaP, Unspecified Formulation Unknown Completed [facility] DTaP, Unspecified Formulation Unknown Completed [facility] Influenza Virus Vaccine Quad .5 mL IM 6+ MO (FLUZONE/FLULAVAL/FL UARIX) Unknown Completed [facility] HEPATITIS A Unknown Completed [facility] Hep B, Adol or Pedi Dosage Unknown Completed [facility] Hep B, Adol or Pedi Dosage Unknown Completed [facility] Hep B, Adol or Pedi Dosage Unknown Completed [facility] Hib-HbOC Unknown Completed [facility] Hib-HbOC Unknown Completed [facility] Hib-HbOC Unknown Completed [facility] Hib-HbOC Unknown Completed [facility] HPV Unknown Completed [facility] Meningococcal Polysaccharide (groups A, C, Y and W-135) conjugate vaccine (MCV4P) Unknown Completed [facility] MMR Unknown Completed [facility] MMR Unknown Completed [facility] IPV Unknown Completed [facility] IPV Unknown Completed [facility] IPV Unknown Completed [facility] IPV Unknown Completed [facility] TDAP Unknown Completed [facility] Varicella (varivax)(chicken pox) Unknown Completed [facility] Varicella (varivax)(chicken pox) Unknown Completed [facility] HPV9 Unknown Completed [facility] HPV9 Unknown Completed [facility] Influenza Virus Vaccine Quad .5 mL IM 6+ MO (FLUZONE/FLULAVAL/FL UARIX) Unknown Completed [facility] HPV9 Unknown Completed [facility] DTaP, Unspecified Formulation Unknown Completed [facility] DTaP, Unspecified Formulation Unknown Completed [facility] DTaP, Unspecified Formulation Unknown Completed [facility] DTaP, Unspecified Formulation Unknown Completed [facility] DTaP, Unspecified Formulation Unknown Completed [facility] Influenza Virus Vaccine Quad .5 mL IM 6+ MO (FLUZONE/FLULAVAL/FL UARIX) Unknown Completed [facility] HEPATITIS A Unknown Completed [facility] Hep B, Adol or Pedi Dosage Unknown Completed [facility] Hep B, Adol or Pedi Dosage Unknown Completed [facility] Hep B, Adol or Pedi Dosage Unknown Completed [facility] Hib-HbOC Unknown Completed [facility] Hib-HbOC Unknown Completed [facility] Hib-HbOC Unknown Completed [facility] Hib-HbOC Unknown Completed [facility] HPV Unknown Completed [facility] Meningococcal Polysaccharide (groups A, C, Y and W-135) conjugate vaccine (MCV4P) Unknown Completed [facility] MMR Unknown Completed [facility] MMR Unknown Completed [facility] IPV Unknown Completed [facility] IPV Unknown Completed [facility] IPV Unknown Completed [facility] IPV Unknown Completed [facility] TDAP Unknown Completed [facility] Varicella (varivax)(chicken pox) Unknown Completed [facility] Varicella (varivax)(chicken pox) Unknown Completed [facility] HPV9 Unknown Completed [facility] HPV9 Unknown Completed [facility] Influenza Virus Vaccine Quad .5 mL IM 6+ MO (FLUZONE/FLULAVAL/FL UARIX) Unknown Completed [facility] HPV9 Unknown Completed [facility] DTaP, Unspecified Formulation Unknown Completed [facility] DTaP, Unspecified Formulation Unknown Completed [facility] DTaP, Unspecified Formulation Unknown Completed [facility] DTaP, Unspecified Formulation Unknown Completed [facility] DTaP, Unspecified Formulation Unknown Completed [facility] Influenza Virus Vaccine Quad .5 mL IM 6+ MO (FLUZONE/FLULAVAL/FL UARIX) Unknown Completed [facility] HEPATITIS A Unknown Completed [facility] Hep B, Adol or Pedi Dosage Unknown Completed [facility] Hep B, Adol or Pedi Dosage Unknown Completed [facility] Hep B, Adol or Pedi Dosage Unknown Completed [facility] Hib-HbOC Unknown Completed [facility] Hib-HbOC Unknown Completed [facility] Hib-HbOC Unknown Completed [facility] Hib-HbOC Unknown Completed [facility] HPV Unknown Completed [facility] Meningococcal Polysaccharide (groups A, C, Y and W-135) conjugate vaccine (MCV4P) Unknown Completed [facility] MMR Unknown Completed [facility] MMR Unknown Completed [facility] IPV Unknown Completed [facility] IPV Unknown Completed [facility] IPV Unknown Completed [facility] IPV Unknown Completed [facility] TDAP Unknown Completed [facility] Varicella (varivax)(chicken pox) Unknown Completed [facility] Varicella (varivax)(chicken pox) Unknown Completed [facility] HPV9 Unknown Completed [facility] HPV9 Unknown Completed [facility] Influenza Virus Vaccine Quad .5 mL IM 6+ MO (FLUZONE/FLULAVAL/FL UARIX) Unknown Completed [facility] DTaP, Unspecified Formulation Unknown Completed [facility] DTaP, Unspecified Formulation Unknown [facility] [facility] D[facility]P, Unspecified Formulation Unknown Completed [facility] DTaP, Unspecified Formulation Unknown Completed [facility] DTaP, Unspecified Formulation Unknown Completed [facility] Influenza Virus Vaccine Quad .5 mL IM 6+ MO (FLUZONE/FLULAVAL/FL UARIX) Unknown Completed [facility] HEPATITIS A Unknown Completed [facility] Hep B, Adol or Pedi Dosage Unknown Completed [facility] Hep B, Adol or Pedi Dosage Unknown Completed [facility] Hep B, Adol or Pedi Dosage Unknown Completed [facility] Hib-HbOC Unknown Completed [facility] Hib-HbOC Unknown Completed [facility] Hib-HbOC Unknown Completed [facility] Hib-HbOC Unknown Completed [facility] HPV Unknown Completed [facility] Meningococcal Polysaccharide (groups A, C, Y and W-135) conjugate vaccine (MCV4P) Unknown Completed [facility] MMR Unknown Completed [facility] MMR Unknown Completed [facility] IPV Unknown Completed [facility] IPV Unknown Completed [facility] IPV Unknown Completed [facility] IPV Unknown Completed [facility] TDAP Unknown Completed [facility] Varicella (varivax)(chicken pox) Unknown Completed [facility] Varicella (varivax)(chicken pox) Unknown Completed [facility] HPV9 Unknown Completed [facility] HPV9 Unknown Completed [facility] Influenza Virus Vaccine Quad .5 mL IM 6+ MO (FLUZONE/FLULAVAL/FL UARIX) Unknown Completed [facility] DTaP, Unspecified Formulation Unknown Completed [facility] DTaP, Unspecified Formulation Unknown Completed [facility] DTaP, Unspecified Formulation Unknown Completed [facility] DTaP, Unspecified Formulation Unknown Completed [facility] DTaP, Unspecified Formulation Unknown Completed [facility] Influenza Virus Vaccine Quad .5 mL IM 6+ MO (FLUZONE/FLULAVAL/FL UARIX) Unknown Completed [facility] HEPATITIS A Unknown Completed [facility] Hep B, Adol or Pedi Dosage Unknown Completed [facility] Hep B, Adol or Pedi Dosage Unknown Completed [facility] Hep B, Adol or Pedi Dosage Unknown Completed [facility] Hib-HbOC Unknown Completed [facility] Hib-HbOC Unknown Completed [facility] Hib-HbOC Unknown Completed [facility] Hib-HbOC Unknown Completed [facility] HPV Unknown Completed [facility] Meningococcal Polysaccharide (groups A, C, Y and W-135) conjugate vaccine (MCV4P) Unknown Completed [facility] MMR Unknown Completed [facility] MMR Unknown Completed [facility] IPV Unknown Completed [facility] IPV Unknown Completed [facility] IPV Unknown Completed [facility] IPV Unknown Completed [facility] TDAP Unknown Completed [facility] Varicella (varivax)(chicken pox) Unknown Completed [facility] Varicella (varivax)(chicken pox) Unknown Completed [facility] HPV9 Unknown Completed [facility] HPV9 Unknown Completed [facility] Influenza Virus Vaccine Quad .5 mL IM 6+ MO (FLUZONE/FLULAVAL/FL UARIX) Unknown Completed [facility] DTaP, Unspecified Formulation Unknown Completed [facility] DTaP, Unspecified Formulation Unknown Completed [facility] DTaP, Unspecified Formulation Unknown Completed [facility] DTaP, Unspecified Formulation Unknown Completed [facility] DTaP, Unspecified Formulation Unknown Completed [facility] Influenza Virus Vaccine Quad .5 mL IM 6+ MO (FLUZONE/FLULAVAL/FL UARIX) Unknown Completed [facility] HEPATITIS A Unknown Completed [facility] Hep B, Adol or Pedi Dosage Unknown Completed [facility] Hep B, Adol or Pedi Dosage Unknown Completed [facility] Hep B, Adol or Pedi Dosage Unknown Completed [facility] Hib-HbOC Unknown Completed [facility] Hib-HbOC Unknown Completed [facility] Hib-HbOC Unknown Completed [facility] Hib-HbOC Unknown Completed [facility] HPV Unknown Completed [facility] Meningococcal Polysaccharide (groups A, C, Y and W-135) conjugate vaccine (MCV4P) Unknown Completed [facility] MMR Unknown Completed [facility] MMR Unknown Completed [facility] IPV Unknown Completed [facility] IPV Unknown Completed [facility] IPV Unknown Completed [facility] IPV Unknown Completed [facility] TDAP Unknown Completed [facility] Varicella (varivax)(chicken pox) Unknown Completed [facility] Varicella (varivax)(chicken pox) Unknown Completed [facility] HPV9 Unknown Completed [facility] HPV9 Unknown Completed [facility] Influenza Virus Vaccine Quad .5 mL IM 6+ MO (FLUZONE/FLULAVAL/FL UARIX) Unknown Completed [facility] DTaP, Unspecified Formulation Unknown Completed [facility] DTaP, Unspecified Formulation Unknown Completed [facility] DTaP, Unspecified Formulation Unknown Completed [facility] DTaP, Unspecified Formulation Unknown Completed [facility] DTaP, Unspecified Formulation Unknown Completed [facility] Influenza Virus Vaccine Quad .5 mL IM 6+ MO (FLUZONE/FLULAVAL/FL UARIX) Unknown Completed [facility] HEPATITIS A Unknown Completed [facility] Hep B, Adol or Pedi Dosage Unknown Completed [facility] Hep B, Adol or Pedi Dosage Unknown Completed [facility] Hep B, Adol or Pedi Dosage Unknown Completed [facility] Hib-HbOC Unknown Completed [facility] Hib-HbOC Unknown Completed [facility] Hib-HbOC Unknown Completed [facility] Hib-HbOC Unknown Completed [facility] HPV Unknown Completed [facility] Meningococcal Polysaccharide (groups A, C, Y and W-135) conjugate vaccine (MCV4P) Unknown Completed [facility] MMR Unknown Completed [facility] MMR Unknown Completed [facility] IPV Unknown Completed [facility] IPV Unknown Completed [facility] IPV Unknown Completed [facility] IPV Unknown Completed [facility] TDAP Unknown Completed [facility] Varicella (varivax)(chicken pox) Unknown Completed [facility] Varicella (varivax)(chicken pox) Unknown Completed [facility] HPV9 Unknown Completed [facility] HPV9 Unknown Completed [facility] Influenza Virus Vaccine Quad .5 mL IM 6+ MO (FLUZONE/FLULAVAL/FL UARIX) Unknown Completed [facility] HPV9 Unknown Completed [facility] TDAP Unknown Completed [facility] DTaP, Unspecified Formulation Unknown Completed [facility] DTaP, Unspecified Formulation Unknown Completed [facility] DTaP, Unspecified Formulation Unknown Completed [facility] DTaP, Unspecified Formulation Unknown Completed [facility] DTaP, Unspecified Formulation Unknown Completed [facility] Influenza Virus Vaccine Quad .5 mL IM 6+ MO (FLUZONE/FLULAVAL/FL UARIX) Unknown Completed [facility] HEPATITIS A Unknown Completed [facility] Hep B, Adol or Pedi Dosage Unknown Completed [facility] Hep B, Adol or Pedi Dosage Unknown Completed [facility] Hep B, Adol or Pedi Dosage Unknown Completed [facility] Hib-HbOC Unknown Completed [facility] Hib-HbOC Unknown Completed [facility] Hib-HbOC Unknown Completed [facility] Hib-HbOC Unknown Completed [facility] HPV Unknown Completed [facility] Meningococcal Polysaccharide (groups A, C, Y and W-135) conjugate vaccine (MCV4P) Unknown Completed [facility] MMR Unknown Completed [facility] MMR Unknown Completed [facility] IPV Unknown Completed [facility] IPV Unknown Completed [facility] IPV Unknown Completed [facility] IPV Unknown Completed [facility] TDAP Unknown Completed [facility] Varicella (varivax)(chicken pox) Unknown Completed [facility] Varicella (varivax)(chicken pox) Unknown Completed [facility] HPV9 Unknown Completed [facility] HPV9 Unknown Completed [facility] Influenza Virus Vaccine Quad .5 mL IM 6+ MO (FLUZONE/FLULAVAL/FL UARIX) Unknown Completed [facility] HPV9 Unknown Completed [facility] TDAP Unknown Completed [facility] DTaP, Unspecified Formulation Unknown Completed [facility] DTaP, Unspecified Formulation Unknown Completed [facility] DTaP, Unspecified Formulation Unknown Completed [facility] DTaP, Unspecified Formulation Unknown Completed [facility] DTaP, Unspecified Formulation Unknown Completed [facility] Influenza Virus Vaccine Quad .5 mL IM 6+ MO (FLUZONE/FLULAVAL/FL UARIX) Unknown Completed [facility] HEPATITIS A Unknown Completed [facility] Hep B, Adol or Pedi Dosage Unknown Completed [facility] Hep B, Adol or Pedi Dosage Unknown Completed [facility] Hep B, Adol or Pedi Dosage Unknown Completed [facility] Hib-HbOC Unknown Completed [facility] Hib-HbOC Unknown Completed [facility] Hib-HbOC Unknown Completed [facility] Hib-HbOC Unknown Completed [facility] HPV Unknown Completed [facility] Meningococcal Polysaccharide (groups A, C, Y and W-135) conjugate vaccine (MCV4P) Unknown Completed [facility] MMR Unknown Completed [facility] MMR Unknown Completed [facility] IPV Unknown Completed [facility] IPV Unknown Completed [facility] IPV Unknown Completed [facility] IPV Unknown Completed [facility] TDAP Unknown Completed [facility] Varicella (varivax)(chicken pox) Unknown Completed [facility] Varicella (varivax)(chicken pox) Unknown Completed [facility] HPV9 Unknown Completed [facility] HPV9 Unknown Completed [facility] Influenza Virus Vaccine Quad .5 mL IM 6+ MO (FLUZONE/FLULAVAL/FL UARIX) Unknown Completed [facility] HPV9 Unknown Completed [facility] TDAP Unknown Completed [facility] DTaP, Unspecified Formulation Unknown Completed [facility] DTaP, Unspecified Formulation Unknown Completed [facility] DTaP, Unspecified Formulation Unknown Completed [facility] DTaP, Unspecified Formulation Unknown Completed [facility] DTaP, Unspecified Formulation Unknown Completed [facility] Influenza Virus Vaccine Quad .5 mL IM 6+ MO (FLUZONE/FLULAVAL/FL UARIX) Unknown Completed [facility] HEPATITIS A Unknown Completed [facility] Hep B, Adol or Pedi Dosage Unknown Completed [facility] Hep B, Adol or Pedi Dosage Unknown Completed [facility] Hep B, Adol or Pedi Dosage Unknown Completed [facility] Hib-HbOC Unknown Completed [facility] Hib-HbOC Unknown Completed [facility] Hib-HbOC Unknown Completed [facility] Hib-HbOC Unknown Completed [facility] HPV Unknown Completed [facility] Meningococcal Polysaccharide (groups A, C, Y and W-135) conjugate vaccine (MCV4P) Unknown Completed [facility] MMR Unknown Completed [facility] MMR Unknown Completed [facility] IPV Unknown Completed [facility] IPV Unknown Completed [facility] IPV Unknown Completed [facility] IPV Unknown Completed [facility] TDAP Unknown Completed [facility] Varicella (varivax)(chicken pox) Unknown Completed [facility] Varicella (varivax)(chicken pox) Unknown Completed [facility] HPV9 Unknown Completed [facility] HPV9 Unknown Completed [facility] Influenza Virus Vaccine Quad .5 mL IM 6+ MO (FLUZONE/FLULAVAL/FL UARIX) Unknown Completed [facility] HPV9 Unknown Completed [facility] TDAP Unknown Completed [facility] DTaP, Unspecified Formulation Unknown Completed [facility] DTaP, Unspecified Formulation Unknown Completed [facility] DTaP, Unspecified Formulation Unknown Completed [facility] DTaP, Unspecified Formulation Unknown Completed [facility] DTaP, Unspecified Formulation Unknown Completed [facility] Influenza Virus Vaccine Quad .5 mL IM 6+ MO (FLUZONE/FLULAVAL/FL UARIX) Unknown Completed [facility] HEPATITIS A Unknown Completed [facility] Hep B, Adol or Pedi Dosage Unknown Completed [facility] Hep B, Adol or Pedi Dosage Unknown Completed [facility] Hep B, Adol or Pedi Dosage Unknown Completed [facility] Hib-HbOC Unknown Completed [facility] Hib-HbOC Unknown Completed [facility] Hib-HbOC Unknown Completed [facility] Hib-HbOC Unknown Completed [facility] HPV Unknown Completed [facility] Meningococcal Polysaccharide (groups A, C, Y and W-135) conjugate vaccine (MCV4P) Unknown Completed [facility] MMR Unknown Completed [facility] MMR Unknown Completed [facility] IPV Unknown Completed [facility] IPV Unknown Completed [facility] IPV Unknown Completed [facility] IPV Unknown Completed [facility] TDAP Unknown Completed [facility] Varicella (varivax)(chicken pox) Unknown Completed [facility] Varicella (varivax)(chicken pox) Unknown Completed [facility] HPV9 Unknown Completed [facility] HPV9 Unknown Completed [facility] Influenza Virus Vaccine Quad .5 mL IM 6+ MO (FLUZONE/FLULAVAL/FL UARIX) Unknown Completed [facility] HPV9 Unknown Completed [facility] TDAP Unknown Completed [facility] DTaP, Unspecified Formulation Unknown Completed [facility] DTaP, Unspecified Formulation Unknown Completed [facility] DTaP, Unspecified Formulation Unknown Completed [facility] DTaP, Unspecified Formulation Unknown Completed [facility] DTaP, Unspecified Formulation Unknown Completed [facility] Influenza Virus Vaccine Quad .5 mL IM 6+ MO (FLUZONE/FLULAVAL/FL UARIX) Unknown Completed [facility] HEPATITIS A Unknown Completed [facility] Hep B, Adol or Pedi Dosage Unknown Completed [facility] Hep B, Adol or Pedi Dosage Unknown Completed [facility] Hep B, Adol or Pedi Dosage Unknown Completed [facility] Hib-HbOC Unknown Completed [facility] Hib-HbOC Unknown Completed [facility] Hib-HbOC Unknown Completed [facility] Hib-HbOC Unknown Completed [facility] HPV Unknown Completed [facility] Meningococcal Polysaccharide (groups A, C, Y and W-135) conjugate vaccine (MCV4P) Unknown Completed [facility] MMR Unknown Completed [facility] MMR Unknown Completed [facility] IPV Unknown Completed [facility] IPV Unknown Completed [facility] IPV Unknown Completed [facility] IPV Unknown Completed [facility] TDAP Unknown Completed [facility] Varicella (varivax)(chicken pox) Unknown Completed [facility] Varicella (varivax)(chicken pox) Unknown Completed [facility] Vital Signs Vital Name Observation Time Observation Value Comments S ource Systolic blood pressure 2023-03-08 16:42:00 142 mm[Hg] [facility] Diastolic blood pressure 2023-03-08 16:42:00 89 mm[Hg] [facility] Heart rate 2023-03-08 16:42:00 91 [facility] 2023-03-08 16:41:00 36.44 Gin [facility] Respiratory rate 2023-03-08 16:41:00 20 /min [facility] Body weight 2023-03-08 16:41:00 115.355 kg [facility] BMI 2023-03-08 16:41:00 37.56 kg/m2 [facility] Systolic blood pressure 2023-01-06 15:38:00 116 mm[Hg] [facility] Diastolic blood pressure 2023-01-06 15:38:00 77 mm[Hg] [facility] Heart rate 2023-01-06 15:38:00 76 /min [facility] Body temperature 2023-01-06 15:38:00 36.39 Gin [facility] Respiratory rate 2023-01-06 15:38:00 20 /min [facility] Body height 2023-01-06 15:38:00 175.3 cm [facility] Body weight 2023-01-06 15:38:00 111.84 kg [facility] BMI 2023-01-06 15:38:00 36.41 kg/m2 [facility] Systolic blood pressure 2022-12-17 12:40:00 124 mm[Hg] [facility] Diastolic blood pressure 2022-12-17 12:40:00 85 mm[Hg] [facility] Heart rate 2022-12-17 12:40:00 100 /min [facility] Body temperature 2022-12-17 12:40:00 36.67 Gin [facility] Respiratory rate 2022-12-17 12:40:00 18 /min [facility] Oxygen saturation in Arterial blood by Pulse oximetry 2022-12-17 12:40:00 97 /min [facility] Body height 2022-12-15 20:40:00 175.3 cm [facility] Body weight 2022-12-15 20:40:00 120.657 kg [facility] BMI 2022-12-15 20:40:00 39.28 kg/m2 [facility] Systolic blood pressure 2022-12-13 13:36:00 130 mm[Hg] [facility] Diastolic blood pressure 2022-12-13 13:36:00 90 mm[Hg] [facility] Heart rate 2022-12-13 13:36:00 116 /min [facility] Body temperature 2022-12-13 13:36:00 35.06 Gin [facility] Respiratory rate 2022-12-13 13:36:00 18 /min [facility] Body height 2022-12-13 13:36:00 175.3 cm [facility] Body weight 2022-12-13 13:36:00 120.385 kg [facility] BMI 2022-12-13 13:36:00 39.19 kg/m2 [facility] Systolic blood pressure 2022-12-07 16:07:00 125 mm[Hg] [facility] Diastolic blood pressure 2022-12-07 16:07:00 79 mm[Hg] [facility] Heart rate 2022-12-07 16:07:00 88 /min [facility] Body temperature 2022-12-07 16:07:00 35.22 Gin [facility] Respiratory rate 2022-12-07 16:07:00 18 /min [facility] Body height 2022-12-07 16:07:00 175.3 cm [facility] Body weight 2022-12-07 16:07:00 121.156 kg [facility] BMI 2022-12-07 16:07:00 39.44 kg/m2 [facility] Systolic blood pressure 2022-11-28 17:30:00 123 mm[Hg] [facility] Diastolic blood pressure 2022-11-28 17:30:00 74 mm[Hg] [facility] Heart rate 2022-11-28 17:30:00 70 /min [facility] Oxygen saturation in Arterial blood by Pulse oximetry 2022-11-28 17:30:00 98 /min [facility] Body temperature 2022-11-28 14:30:00 36.61 Gin [facility] Respiratory rate 2022-11-28 14:30:00 20 /min [facility] Body height 2022-11-28 14:30:00 175.3 cm [facility] Body weight 2022-11-28 14:30:00 120.657 kg [facility] BMI 2022-11-28 14:30:00 39.28 kg/m2 [facility] Systolic blood pressure 2022-11-23 16:02:00 128 mm[Hg] [facility] Diastolic blood pressure 2022-11-23 16:02:00 75 mm[Hg] [facility] Heart rate 2022-11-23 16:02:00 88 /min [facility] Body temperature 2022-11-23 16:02:00 36.06 Gin [facility] Respiratory rate 2022-11-23 16:02:00 20 /min [facility] Body height 2022-11-23 16:02:00 175.3 cm [facility] Body weight 2022-11-23 16:02:00 120.77 kg [facility] BMI 2022-11-23 16:02:00 39.32 kg/m2 [facility] Systolic blood pressure 2022-11-09 12:53:00 120 mm[Hg] [facility] Diastolic blood pressure 2022-11-09 12:53:00 74 mm[Hg] [facility] Heart rate 2022-11-09 12:53:00 95 /min [facility] Body temperature 2022-11-09 12:53:00 36.39 Gin [facility] Respiratory rate 2022-11-09 12:53:00 20 /min [facility] Body height 2022-11-09 12:53:00 175.3 cm [facility] Body weight 2022-11-09 12:53:00 121.745 kg [facility] BMI 2022-11-09 12:53:00 39.64 kg/m2 [facility] Systolic blood pressure 2022-10-21 15:56:00 129 mm[Hg] [facility] Diastolic blood pressure 2022-10-21 15:56:00 78 mm[Hg] [facility] Heart rate 2022-10-21 15:56:00 101 /min [facility] Body temperature 2022-10-21 15:56:00 35.5 Gin [facility] Respiratory rate 2022-10-21 15:56:00 18 /min [facility] Body height 2022-10-21 15:56:00 175.3 cm [facility] Body weight 2022-10-21 15:56:00 120.022 kg [facility] BMI 2022-10-21 15:56:00 39.07 kg/m2 [facility] Systolic blood pressure 2022-10-07 14:59:00 122 mm[Hg] [facility] Diastolic blood pressure 2022-10-07 14:59:00 70 mm[Hg] [facility] Heart rate 2022-10-07 14:59:00 103 /min [facility] Body temperature 2022-10-07 14:59:00 35.78 Gin [facility] Respiratory rate 2022-10-07 14:59:00 18 /min [facility] Body height 2022-10-07 14:59:00 175.3 cm [facility] Body weight 2022-10-07 14:59:00 119.886 kg [facility] BMI 2022-10-07 14:59:00 39.03 kg/m2 [facility] Systolic blood pressure 2022-09-23 16:10:00 125 mm[Hg] [facility] Diastolic blood pressure 2022-09-23 16:10:00 76 mm[Hg] [facility] Heart rate 2022-09-23 16:10:00 100 /min [facility] Body temperature 2022-09-23 16:10:00 36 Ign [facility] Respiratory rate 2022-09-23 16:10:00 18 /min [facility] Body height 2022-09-23 16:10:00 175.3 cm [facility] Body weight 2022-09-23 16:10:00 119.659 kg [facility] BMI 2022-09-23 16:10:00 38.96 kg/m2 [facility] Systolic blood pressure 2022-08-17 15:24:00 132 mm[Hg] [facility] Diastolic blood pressure 2022-08-17 15:24:00 73 mm[Hg] [facility] Heart rate 2022-08-17 15:24:00 90 /min [facility] Body temperature 2022-08-17 15:24:00 35.83 Gin [facility] Respiratory rate 2022-08-17 15:24:00 18 /min [facility] Body height 2022-08-17 15:24:00 175.3 cm [facility] Body weight 2022-08-17 15:24:00 115.35 kg [facility] BMI 2022-08-17 15:24:00 37.55 kg/m2 [facility] Systolic blood pressure 2022-07-21 14:43:00 130 mm[Hg] [facility] Diastolic blood pressure 2022-07-21 14:43:00 71 mm[Hg] [facility] Heart rate 2022-07-21 14:43:00 97 /min [facility] Body temperature 2022-07-21 14:43:00 36.89 Gin [facility] Respiratory rate 2022-07-21 14:43:00 17 /min [facility] Body height 2022-07-21 14:43:00 175.3 cm [facility] Body weight 2022-07-21 14:43:00 114.851 kg [facility] BMI 2022-07-21 14:43:00 37.39 kg/m2 [facility] Systolic blood pressure 2022-06-22 15:09:00 134 mm[Hg] [facility] Diastolic blood pressure 2022-06-22 15:09:00 90 mm[Hg] [facility] Heart rate 2022-06-22 15:09:00 98 /min [facility] Body temperature 2022-06-22 15:09:00 37.06 Gin [facility] Respiratory rate 2022-06-22 15:09:00 18 /min [facility] Body height 2022-06-22 15:09:00 175.3 cm [facility] Body weight 2022-06-22 15:09:00 109.816 kg [facility] BMI 2022-06-22 15:09:00 35.75 kg/m2 [facility] Systolic blood pressure 2022-05-25 15:32:00 119 mm[Hg] [facility] Diastolic blood pressure 2022-05-25 15:32:00 69 mm[Hg] [facility] Heart rate 2022-05-25 15:32:00 81 /min [facility] Body temperature 2022-05-25 15:32:00 36.28 Gin [facility] Respiratory rate 2022-05-25 15:32:00 18 /min [facility] Body height 2022-05-25 15:32:00 175.3 cm [facility] Body weight 2022-05-25 15:32:00 111.721 kg [facility] BMI 2022-05-25 15:32:00 36.37 kg/m2 [facility] Systolic blood pressure 2022-04-27 15:52:00 136 mm[Hg] [facility] Diastolic blood pressure 2022-04-27 15:52:00 79 mm[Hg] [facility] Heart rate 2022-04-27 15:52:00 98 /min [facility] Body temperature 2022-04-27 15:52:00 36.28 Gin [facility] Respiratory rate 2022-04-27 15:52:00 18 /min [facility] Body height 2022-04-27 15:52:00 175.3 cm [facility] Body weight 2022-04-27 15:52:00 109.856 kg [facility] BMI 2022-04-27 15:52:00 35.76 kg/m2 [facility] Systolic blood pressure 2022-02-17 15:46:00 131 mm[Hg] [facility] Diastolic blood pressure 2022-02-17 15:46:00 80 mm[Hg] [facility] Heart rate 2022-02-17 15:46:00 104 /min [facility] Body temperature 2022-02-17 15:46:00 36.94 Gin [facility] Respiratory rate 2022-02-17 15:46:00 18 /min [facility] Body weight 2022-02-17 15:46:00 108.455 kg [facility] BMI 2022-02-17 15:46:00 35.31 kg/m2 [facility] Systolic blood pressure 2022-02-10 21:46:00 121 mm[Hg] [facility] Diastolic blood pressure 2022-02-10 21:46:00 69 mm[Hg] [facility] Heart rate 2022-02-10 21:46:00 92 /min [facility] Body temperature 2022-02-10 21:46:00 36.11 Gni [facility] Respiratory rate 2022-02-10 21:46:00 18 /min [facility] Body height 2022-02-10 21:46:00 175.3 cm [facility] Body weight 2022-02-10 21:46:00 109.77 kg [facility] BMI 2022-02-10 21:46:00 35.74 kg/m2 [facility] Systolic blood pressure 2021-06-30 14:10:00 116 mm[Hg] [facility] Diastolic blood pressure 2021-06-30 14:10:00 66 mm[Hg] [facility] Heart rate 2021-06-30 14:10:00 96 /min [facility] Body temperature 2021-06-30 14:10:00 36.33 Gin [facility] Respiratory rate 2021-06-30 14:10:00 18 /min [facility] Body height 2021-06-30 14:10:00 175.3 cm [facility] Body weight 2021-06-30 14:10:00 112.129 kg [facility] BMI 2021-06-30 14:10:00 36.51 kg/m2 [facility] Procedures Procedure Date / Time Performed Performing Clinician Source POCT TEST 2023-03-08 16:51:00 Maya Aparicio [facility] CONSENT FOR CONTRACEPTION 2023-03-08 06:01:00 Doctor Unassigned, [place] [facility] CBC WITH DIFF 2023-01-06 16:19:00 Simona Aparicio [facility] CBC WITH DIFF 2022-12-17 09:09:00 [facility]in[facility]ill [facility] VENOUS CORD GAS 2022-12-16 14:24:00 [facility] CENTRAL NEURAXIAL BLOCK 2022-12-16 06:04:00 Bi De Leon [facility] CBC WITH DIFF 2022-12-15 21:29:00 Surya Slater [facility] HEPATITIS B SURFACE ANTIGEN 2022-12-15 21:29:00 [facility] HB ABO GROUPING 2022-12-15 21:29:00 Surya Slater [facility] RHO (D) IMMUNE GLOBULIN 2022-12-15 21:29:00 Higinio Mcneill [facility] HIV 1/2 AG-AB WITH REFLEX 2022-12-15 21:29:00 Nohemy [facility] SYPHILIS IGG/IGM 2022-12-15 21:29:00 [facility] HOSPITAL ADMISSION 2022-12-15 05:01:00 Doctor Un assigned, Freeland [facility] POCT URINALYSIS 2022-12-13 13:39:00 Lyudmila Montoya [facility] POCT URINALYSIS 2022-12-07 16:09:00 Lyudmila Montoya [facility] URINALYSIS 2022-11-28 16:20:00 Lucille Foster [facility] ADC CLC OR LCC ONLY - WET PREP 2022-11-28 16:20:00 Lucille Foster [facility] EXTERNAL PROVIDER RECORDS 2022-11-28 05:01:00 Doctor Unassigned, Freeland [facility] MEDICAL RELEASE/CLEARANCE FORMS 2022-11-28 05:01:00 Doctor Unassigned, Freeland [facility] L&D VISIT (NON-DELIVERED) 2022-11-28 05:01:00 Doctor Unassigned, Freeland [facility] POCT URINALYSIS 2022-11-23 16:05:00 Lyudmila Montoya [facility] POCT URINALYSIS 2022-11-09 00:00:00 Lyudmila Montoya [facility] POCT URINALYSIS 2022-10-21 15:58:00 Lyudmila Montoya [facility] TDAP VACCINE, >11 YRS, IM 2022-10-07 15:19:25 Lyudmila Montoya [facility] POCT URINALYSIS 2022-10-07 15:02:00 Lyudmila Montoya [facility] POCT URINALYSIS 2022-09-23 16:18:00 Lyudmila Montoya [facility] POCT URINALYSIS 2022-08-17 15:26:00 Lyudmila Montoya [facility] POCT URINALYSIS 2022-07-21 00:00:00 Lyudmila Montoya [facility] TRICHOMONAS AMPLIFIED ASSAY 2022-06-28 18:13:00 Lyudmila Montoya [facility] FIRST TRIMESTER ULTRASOUND 2022-06-23 14:50:00 Lyudmila Montoya [facility] POCT URINALYSIS 2022-06-22 15:09:00 Lyudmila Montoya [facility] CONSENT/REFUSAL FOR DIAGNOSIS AND TREATMENT 2022-06-22 14:48:52 Doctor Unassigned, [place] [facility] POCT URINALYSIS 2022-05-25 15:34:00 Lyudmila Montoya [facility] GC & CHLAMYDIA AMPLIFIED ASSAY 2022-05-09 20:54:00 Lyudmila Montoya [facility] TRICHOMONAS AMPLIFIED ASSAY 2022-05-09 20:54:00 Lyudmila Montoya [facility] POCT URINALYSIS W/O SPECIFIC GRAVITY 2022-04-27 15:45:00 Lyudmila Montoya [facility] POCT TEST 2022-04-27 15:44:00 Lavelle Montoya [facility] REPORT OF 2022-04-27 06:01:00 Doctor Kendall yates, [place] [facility] POCT TEST 2022-02-17 15:48:00 Lavelle Montoya [facility] POCT TEST 2022-02-10 00:00:00 Maya Aparicio [facility] BCCS-RELATED DOCUMENTATION 2022-01-19 05:01:00 Doctor Unassigned, [place] [facility] BI ULTRASOUND BREAST COMPLETE LEFT 2021-09-22 18:30:10 Lyudmila Montoya [facility] Encounters Start Date/Time End Date/Time Encounter Type Admission Type Attending [facility] Care Facility Care Department Encounter ID Source 2021-02-02 06:13:19 Emergency 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 [id number] [facility] 2021-01-30 14:34:27 Emergency 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 [id number] [facility] 2023-03-08 10:30:00 2023-03-08 11:42:48 Outpatient R SIMONA APARICIO 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 [id number] [facility] 2023-03-08 10:30:00 2023-03-08 11:42:48 Office Visit Simona Aparicio [facility] INSURANCE SALES AGENT [facility]ERNAL & [facility] 1.840.114 350.1.13.10 4.2.7.2.686 [id number] [facility] 2023-03-08 00:00:00 2023-03-08 00:00:00 Orders Only Doctor Unassigned, Freeland [facility] 1..840.114 350.1.13.10 4.2.7.2.686 [id number] [facility] 2023-01-26 09:45:00 2023-01-26 09:45:00 Outpatient R PIERREMARYBEL SIMONA 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 [id number] [facility] 2023-01-26 00:00:00 2023-01-26 00:00:00 Telephone Simona Aparicio [facility] INSURANCE SALES AGENT [facility] & CHILD [facility] 1.2.840.114 350.1.13.10 4.2.7.2.686 [id number] [facility] 2023-01-06 10:00:00 2023-01-06 11:20:32 Outpatient R BEANLyubov SIMONA 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 [id number] [facility] 2023-01-06 10:00:00 2023-01-06 11:20:32 Routine Visit Simona Aparicio [facility] INSURANCE SALES AGENT [facility] & CHILD [facility] 1.2840.114 350.1.13.10 4.2.7.2.686 [id number] [facility] 2022-12-19 00:00:00 2022-12-19 00:00:00 Telephone Lyudmila Montoya [facility] INSURANCE SALES AGENT [facility] & CHILD [facility] 1.2.840.114 350.1.13.10 4.2.7.2.686 [id number] 107 [id number] [facility] 2022-12-15 15:05:00 2022-12-17 15:20:00 Inpatient U KARRI DAY [facility] [place] [id number] [facility] 2022-12-15 15:05:00 2022-12-17 15:20:00 Hospital Encounter Karri Day [facility] 1.20.114 350.1.13.10 4.2.7.2.686 [id number] [facility] 2022-12-16 00:34:00 2022-12-16 11:22:00 Anesthesia Event Abimbola Zimmerman Sarah [facility] 1.2.840.114 350.1.13.10 4.2.7.2.686 [id number] [facility] 2022-12-15 00:00:00 2022-12-15 00:00:00 Orders Only Doctor Unassigned, Freeland [facility] 1.2.840.114 350.1.13.10 4.2.7.2.686 [id number] [facility] 2022-12-13 08:30:00 2022-12-13 09:06:22 Outpatient R LYUDMILA MONTOYA 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 [id number] [facility] 2022-12-13 08:30:00 2022-12-13 09:06:22 Routine Visit Lyudmila Montoya [facility] INSURANCE SALES AGENT [facility] MATERNAL & CHILD [facility] 1.2.840.114 350.1.13.10 4.2.7.2.686 [id number] 107 [id number] [facility] 2022-12-07 11:00:00 2022-12-07 11:15:00 Routine Visit Lyudmila Montoya [facility] INSURANCE SALES AGENT [facility] & CHILD [facility] 1.2.840.114 350.1.13.10 4.2.7.2.686 [id number] [facility] 2022-12-07 11:00:00 2022-12-07 11:00:00 Outpatient R LYUDMILA MONTOYA 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 [id number] [facility] 2022-11-30 09:45:00 2022-11-30 09:45:00 Outpatient R LYUDMILA MONTOYA 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 [id number] [facility] 2022-11-28 09:23:00 2022-11-28 13:05:00 Outpatient U LORENA S, LUCILLE LORENA S, LUCILLE [facility] [place] [id number] [facility] 2022-11-28 09:23:00 2022-11-28 13:05:00 Hospital Encounter Lucille Morse [facility] 1..840.114 350.1.13.10 4.2.7.2.686 [id number] [facility] 2022-11-23 11:00:00 2022-11-23 11:42:15 Outpatient R SIMONA APARICIO 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 [id number] [facility] 2022-11-23 11:00:00 2022-11-23 11:42:15 Routine Visit Simona Aparicio [facility] INSURANCE SALES AGENT [facility] MATERNAL & CHILD [facility] 1..840.114 350.1.13.10 4.2.7.2.686 [id number] [facility] 2022-11-09 07:45:00 2022-11-09 08:21:13 Outpatient R LYUDMILA MONTOYA 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 [id number] [facility] 2022-11-09 07:45:00 2022-11-09 08:21:13 Routine Visit Simona Aparicio Damilola C [facility] INSURANCE SALES AGENT [facility] MATERNAL & CHILD [facility] 1..840.114 350.1.13.10 4.2.7.2.686 [id number] [facility] 2022-11-04 15:00:00 2022-11-04 15:00:00 Outpatient R LYUDMILA MONTOYA 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 [id number] [facility] 2022-10-21 10:45:00 2022-10-21 11:11:59 Outpatient R LYUDMILA MONTOYA 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 [id number] [facility] 2022-10-21 10:45:00 2022-10-21 11:11:59 Routine Visit Lyudmila Montoya [facility] INSURANCE SALES AGENT [facility] & CHILD [facility] 1.2.840.114 350.1.13.10 4.2.7.2.686 [id number] [facility] 2022-10-07 10:00:00 2022-10-07 10:58:26 Outpatient R JAN LYUDMILA 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 [id number] [facility] 2022-10-07 10:00:00 2022-10-07 10:58:26 Routine Visit Lyudmila Montoya Didier [facility] INSURANCE SALES AGENT [facility] & CHILD [facility] 1.2.840.114 350.1.13.10 4.2.7.2.686 [id number] [facility] 2022-10-02 00:00:00 2022-10-02 00:00:00 Patient Secure Msg Jan Lyudmila C [facility] INSURANCE SALES AGENT [facility] CHILD [facility] 1.2.840.114 350.1.13.10 4.2.7.2.686 [id number] [facility] 2022-09-29 00:00:00 2022-09-29 00:00:00 Abstract Lyudmila Montoya [facility] INSURANCE SALES AGENT [facility] CHILD [facility] 1.2.840.114 350.1.13.10 4.2.7.2.686 [id number] [facility] 2022-09-28 14:30:00 2022-09-28 14:58:03 Bacteriologist Food Visit 1, [facility] Room Parvez Ramirez [facility] INSURANCE SALES AGENT [facility] MATERNAL & CHILD [facility] 1.2.840.114 350.1.13.10 4.2.7.2.686 [id number] [facility] 2022-09-28 14:30:00 2022-09-28 14:30:00 Outpatient P PARVEZ RAMIREZ COREY 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 [id number] [facility] 2022-09-26 00:00:00 2022-09-26 00:00:00 Telephone Lyudmila Montoya [facility] INSURANCE SALES AGENT [facility] CHILD [facility] 1.2.840.114 350.1.13.10 4.2.7.2.686 [id number] [facility] 2022-09-23 11:00:00 2022-09-23 11:54:21 Outpatient R LYUDMILA MONTOYA 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 [id number] [facility] 2022-09-23 11:00:00 2022-09-23 11:54:21 Routine Visit Lyudmila Montoya ORFELICE INSURANCE SALES AGENT [facility] CHILD [facility] 1.840.114 350.1.13.10 4.2.7.2.686 [id number] [facility] 2022-09-14 09:00:00 2022-09-14 09:00:00 Outpatient R LYUDMILA MONTOYA 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 [id number] [facility] 2022-08-18 00:00:00 2022-08-18 00:00:00 Abstract Lyudmila Montoya [facility] INSURANCE SALES AGENT [facility] CHILD [facility] 1.2840.114 350.1.13.10 4.2.7.2.686 [id number] [facility] 2022-08-18 00:00:00 2022-08-18 00:00:00 Patient Secure Msg Lyudmila Montoya [facility] INSURANCE SALES AGENT [facility] & CHILD [facility] 1.2840.114 350.1.13.10 4.2.7.2.686 [id number] [facility] 2022-08-18 00:00:00 2022-08-18 00:00:00 Abstract Lyudmila Montoya [facility] INSURANCE SALES AGENT [facility] CHILD [facility] 1.2.840.114 350.1.13.10 4.2.7.2.686 [id number] 107 [id number] [facility] 2022-08-17 10:45:00 2022-08-17 11:29:04 Routine Visit Lyudmila Montoya [facility] INSURANCE SALES AGENT [facility] & CHILD [facility] 1.840.114 350.1.13.10 4.2.7.2.686 [id number] [facility] 2022-08-17 09:15:00 2022-08-17 10:30:00 Bacteriologist Food Visit Ultrasound, Madeline Bernabe [facility] INSURANCE SALES AGENT [facility] CHILD [facility] 1.84.114 350.1.13.10 4.2.7.2.686 [id number] [facility] 2022-08-17 09:15:00 2022-08-17 09:55:18 Outpatient P MADELINE GARCIA SANGEETA 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 [id number] [facility] 2022-07-21 09:45:00 2022-07-21 10:31:29 Outpatient R LYUDMILA MONTOYA 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 [id number] [facility] 2022-07-21 09:45:00 2022-07-21 10:31:29 Routine Visit Lyudmila Montoya [facility] INSURANCE SALES AGENT [facility] & CHILD [facility] .84.114 350.1.13.10 4.2.7.2.686 [id number] 107 [id number] [facility] 2022-07-14 00:00:00 2022-07-14 00:00:00 Abstract Lyudmila Montoya [facility] INSURANCE SALES AGENT [facility] & CHILD [facility] 1..840.114 350.1.13.10 4.2.7.2.686 [id number] [facility] 2022-06-28 13:15:00 2022-06-28 13:15:00 Outpatient R LYUDMILA MONTOYA 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 [id number] [facility] 2022-06-28 13:15:00 2022-06-28 13:15:00 Bacteriologist Food Visit Lab, Lyudmila Marvin [facility] INSURANCE SALES AGENT [facility] MATERNAL & CHILD [facility] 1.0.114 350.1.13.10 4.2.7.2.686 [id number] [facility] 2022-06-24 00:00:00 2022-06-24 00:00:00 Abstract Lyudmila Montoya [facility] INSURANCE SALES AGENT [facility] CHILD [facility] 1..114 350.1.13.10 4.2.7.2.686 [id number] [facility] 2022-06-23 09:15:00 2022-06-23 15:56:10 Outpatient P PARVEZ RAMIREZ PARVEZ 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 [id number] [facility] 2022-06-23 09:15:00 2022-06-23 15:56:10 Bacteriologist Food Visit 1, Ruy [facility] James Parvez [facility] INSURANCE SALES AGENT [facility] & CHILD [facility] 1.84.114 350.1.13.10 4.2.7.2.686 [id number] [facility] 2022-06-23 10:00:00 2022-06-23 10:12:39 Bacteriologist Food Visit Lab, Tonya Gallo [facility] INSURANCE SALES AGENT [facility] MATERNAL & CHILD [facility] 1..114 350.1.13.10 4.2.7.2.686 [id number] [facility] 2022-06-23 00:00:00 2022-06-23 00:00:00 Telephone Lyudmila Montoya [facility] INSURANCE SALES AGENT [facility] [facility] 1.2.840.114 350.1.13.10 4.2.7.2.686 [id number] 107 [id number] [facility] 2022-06-22 09:45:00 2022-06-22 10:36:01 Outpatient R LYUDMILA MONTOYA 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 [place] [id number] [facility] 2022-06-22 09:45:00 2022-06-22 10:36:01 Routine Visit Lyudmila Montoya [facility] INSURANCE SALES AGENT [facility] 1.840.114 350.1.13.10 4.2.7.2.686 [id number] 107 [id number] [facility] 2022-06-22 00:00:00 2022-06-22 00:00:00 Orders Only Doctor Unassigned, Freeland [facility] 1.840.114 350.1.13.10 4.2.7.2.686 [id number] [facility] 2022-05-25 09:45:00 2022-05-25 09:59:33 Outpatient R LYUDMILA MONTOYA 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 [place] [id number] [facility] 2022-05-25 09:45:00 2022-05-25 09:59:33 Routine Visit Lyudmila Montoya [facility] INSURANCE SALES AGENT [facility] 1.840.114 350.1.13.10 4.2.7.2.686 [id number] 107 [id number] [facility] 2022-05-10 00:00:00 2022-05-10 00:00:00 Telephone Lyudmila Montoya [facility] INSURANCE SALES AGENT [facility] 1.840.114 350.1.13.10 4.2.7.2.686 [id number] 107 [id number] [facility] 2022-05-09 13:15:00 2022-05-09 13:23:32 Outpatient R LYUDMILA MONTOYA 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 [place] [id number] [facility] 2022-05-09 13:15:00 2022-05-09 13:23:32 Bacteriologist Food Visit Lab, Michael-Rmchp Lyudmila Montoya [facility] INSURANCE SALES AGENT [facility] 1.840.114 350.1.13.10 4.2.7.2.686 [id number] 107 [id number] [facility] 2022-05-05 12:45:00 2022-05-05 12:45:00 Outpatient R LYUDMILA MONTOYA 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 [place] [id number] [facility] 2022-05-04 00:00:00 2022-05-04 00:00:00 Telephone Lyudmila Montoya [facility] INSURANCE SALES AGENT [facility] 1.840.114 350.1.13.10 4.2.7.2.686 [id number] 107 [id number] [facility] 2022-05-02 00:00:00 2022-05-02 00:00:00 Telephone Lyudmila Montoya [facility] INSURANCE SALES AGENT [facility] .84.114 350.1.13.10 4.2.7.2.686 [id number] 107 [id number] [facility] 2022-04-29 13:00:00 2022-04-29 13:00:00 Outpatient R LYUDMILA MONTOYA 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 [place] [id number] [facility] 2022-04-27 10:00:00 2022-04-27 10:53:17 Outpatient R LYUDMILA MONTOYA 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 [place] [id number] [facility] 2022-04-27 10:00:00 2022-04-27 10:53:17 Initial Visit Lyudmila Montoya [facility] INSURANCE SALES AGENT [facility] 1.840.114 350.1.13.10 4.2.7.2.686 [id number] 107 [id number] [facility] 2022-04-27 00:00:00 2022-04-27 00:00:00 Telephone Lyudmila Montoya [facility] INSURANCE SALES AGENT [facility] 1.2.114 350.1.13.10 4.2.7.2.686 [id number] 107 [id number] [facility] 2022-04-27 00:00:00 2022-04-27 00:00:00 Orders Only Doctor Unassigned, Freeland [facility] 1..114 350.1.13.10 4.2.7.2.686 [id number] [id number] [facility] 2022-03-04 09:15:00 2022-03-04 09:15:00 Outpatient SIMONA KATE 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 [place] [id number] [facility] 2022-03-04 00:00:00 2022-03-04 00:00:00 Telephone Lyudmila Montoya [facility] INSURANCE SALES AGENT [facility] 1..114 350.1.13.10 4.2.7.2.686 [id number] 107 [id number] [facility] 2022-02-17 10:00:00 2022-02-17 10:08:43 Outpatient SIMONA KATE 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 [place] [id number] [facility] 2022-02-17 10:00:00 2022-02-17 10:08:43 Office Visit Provider, Michael-Rmchp Simona Villa [facility] INSURANCE SALES AGENT [facility] 1..114 350.1.13.10 4.2.7.2.686 [id number] 107 [id number] [facility] 2022-02-11 00:00:00 2022-02-11 00:00:00 Case Management Simona Aparicio [facility] INSURANCE SALES AGENT [facility] 1.20.114 350.1.13.10 4.2.7.2.686 [id number] 107 [id number] [facility] 2022-02-10 15:30:00 2022-02-10 16:18:34 Outpatient R SIMONA APARICIO 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 [place] [id number] [facility] 2022-02-10 15:30:00 2022-02-10 16:18:34 Office Visit Provider, ShahabRmp Simona Villa [facility] INSURANCE SALES AGENT [facility] 1.114 350.1.13.10 4.2.7.2.686 [id number] 107 [id number] [facility] 2022-01-19 00:00:00 2022-01-19 00:00:00 Orders Only Doctor Unassigned, Freeland [facility] 1.114 350.1.13.10 4.2.7.2.686 [id number] [id number] [facility] 2021-12-31 09:40:00 2021-12-31 09:40:00 Outpatient R UNKNOWN, ATTENDING 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 [place] [id number] [facility] 2021-12-30 00:00:00 2021-12-30 00:00:00 Patient Secure Msg Hellen Woods [facility] INSURANCE SALES AGENT [facility] 1.114 350.1.13.10 4.2.7.2.686 [id number] 107 [id number] [facility] 2021-09-22 12:17:01 2021-09-22 23:59:00 Outpatient R LYUDMILA MONTOYA 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 [place] [id number] [facility] 2021-09-22 12:17:01 2021-09-22 23:59:00 Hospital Encounter Lyudmila Montoya [facility] .114 350.1.13.10 4.2.7.2.686 [id number] [facility] 2021-09-22 00:00:00 2021-09-22 00:00:00 Outpatient R LYUDMILA MONTOYA 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 [place] [id number] [facility] 2021-06-30 12:45:00 2021-06-30 13:32:57 Outpatient R COLTKINGS LYUDMILA 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 [place] [id number] [facility] 2021-06-30 12:45:00 2021-06-30 12:45:00 Outpatient R COLTKINGSLYUDMILA 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 [place] [id number] [facility] 2021-06-30 09:15:00 2021-06-30 09:49:37 Outpatient R JAN LYUDMILA 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 [place] [id number] [facility] 2021-06-30 09:15:00 2021-06-30 09:49:37 Office Visit Lyudmila Montoya [facility] INSURANCE SALES AGENT [facility] .840.114 350.1.13.10 4.2.7.2.686 [id number] 107 [id number] [facility] 2021-06-30 09:15:00 2021-06-30 09:49:37 Outpatient R COLTKNIGS LYUDMILA 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 [place] [id number] [facility] 2021-06-30 09:15:00 2021-06-30 09:49:37 Outpatient R NICHOLETITO LYUDMILA 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 [place] [id number] [facility] 2021-06-30 00:00:00 2021-06-30 00:00:00 Orders Only Doctor Unassigned, Freeland [facility] ..114 350.1.13.10 4.2.7.2.686 [id number] [id number] [facility] 2021-06-02 00:00:00 2021-06-02 00:00:00 Case Management Rachana Teague .840.114 350.1.13.10 4.2.7.2.686 [id number] [facility] 2021-05-26 10:15:00 2021-05-26 10:54:44 Office Visit Lyudmila Montoya [facility] INSURANCE SALES AGENT [facility] 1.840.114 350.1.13.10 4.2.7.2.686 [id number] 107 [id number] [facility] 2021-05-26 10:15:00 2021-05-26 10:54:44 Outpatient R LYUDMILA MONTOYA 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 [place] [id number] [facility] 2021-05-26 10:15:00 2021-05-26 10:15:00 Outpatient R LYUDMILA MONTOYA 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 [place] [id number] [facility] 2021-05-26 00:00:00 2021-05-26 00:00:00 Orders Only Doctor Unassigned, Freeland [facility] 1..114 350.1.13.10 4.2.7.2.686 [id number] [facility] 2021-05-21 10:00:00 2021-05-21 10:00:00 Outpatient R LYUDMILA MONTOYA 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 [place] [id number] [facility] 2021-01-12 15:00:00 2021-01-12 17:49:00 Emergency Sergio Calloway [facility] ..114 350.1.13.10 4.2.7.2.686 [id number] [facility] 2020-08-24 00:00:00 2020-08-24 00:00:00 Patient Secure WoodsHellen R [facility] INSURANCE SALES AGENT [facility] 1.840.114 350.1.13.10 4.2.7.2.686 [id number] 107 [id number] [facility] 2020-07-10 12:30:00 2020-07-10 12:30:00 Outpatient R 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 [place] [id number] [facility] 2020-06-23 00:00:00 2020-06-23 00:00:00 Patient Outreach Tye Travis [facility] 1..840.114 350.1.13.10 4.2.7.2.686 [id number] [facility] 2020-06-03 10:28:44 2020-06-03 11:00:41 Office Visit Hellen Woods [facility] INSURANCE SALES AGENT [facility] 1..840.114 350.1.13.10 4.2.7.2.686 [id number] 107 [id number] [facility] 2020-06-03 10:45:00 2020-06-03 10:45:00 Outpatient R HELLEN WOODS 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 [place] [id number] [facility] 2020-06-03 10:45:00 2020-06-03 10:45:00 Outpatient R HELLEN WOODS 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 [place] [id number] [facility] 2020-06-02 00:00:00 2020-06-02 00:00:00 Patient Secure Msg Doctor Unassigned, Freeland [facility] 1..840.114 350.1.13.10 4.2.7.2.686 [id number] 107 [id number] [facility] 2020-06-01 00:00:00 2020-06-01 00:00:00 Patient Secure Msg Doctor Unassigned, Freeland [facility] INSURANCE SALES AGENT [facility] 1..840.114 350.1.13.10 4.2.7.2.686 [id number] [facility] 2020-04-15 14:30:00 2020-04-15 14:30:00 Outpatient R HELLEN WOODS 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 [place] [id number] [facility] 2020-04-15 14:30:00 2020-04-15 14:30:00 Outpatient R HELLEN WOODS 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 [place] [id number] [facility] 2020-04-14 13:30:00 2020-04-14 13:30:00 Outpatient R CHECO WOODSPARISHMORGAN 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 [place] [id number] [facility] 2020-04-09 13:30:00 2020-04-09 13:30:00 Outpatient R CHECO WOODSMORGAN 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 [place] [id number] [facility] 2020-04-07 13:45:00 2020-04-07 13:45:00 Outpatient Dana HOUST[place] AC 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 [place] [id number] [facility] 2020-04-05 06:31:00 2020-04-05 06:45:00 Emergency Rosalina Ac [facility] 1.2.840.114 350.1.13.10 4.2.7.2.686 [id number] [facility] 2020-04-05 06:31:00 2020-04-05 06:45:00 Emergency Rosalina Ac [facility] 1.2.840.114 350.1.13.10 4.2.7.2.686 [id number] 2020-04-01 00:00:00 2020-04-01 00:00:00 Patient Secure Msg Doctor Unassigned, Freeland [facility] INSURANCE SALES AGENT [facility] 1.2.840.114 350.1.13.10 4.2.7.2.686 [id number] 107 [id number] [facility] 2020-03-16 13:09:12 2020-03-16 14:29:45 Office Visit Hellen Woods Dana [facility] INSURANCE SALES AGENT [facility] 1.2.840.114 350.1.13.10 4.2.7.2.686 [id number] 107 [id number] [facility] 2020-03-16 13:09:12 2020-03-16 14:29:45 Office Visit eHllen Woods [facility] INSURANCE SALES AGENT [facility] 1.2.840.114 350.1.13.10 4.2.7.2.686 [id number] 107 [id number] 2020-03-16 13:15:00 2020-03-16 13:15:00 Outpatient R HELLEN WOODS 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 [place] [id number] [facility] 2020-03-16 00:00:00 2020-03-16 00:00:00 Orders Only Doctor Unassigned, Freeland [facility] 1.2.840.114 350.1.13.10 4.2.7.2.686 [id number] [facility] 2018-12-19 00:00:00 2018-12-19 00:00:00 Telephone [place] Ac [facility] INSURANCE SALES AGENT [facility] 1.2.840.114 350.1.13.10 4.2.7.2.686 [id number] [facility] 2018-12-11 00:00:00 2018-12-11 00:00:00 Orders Only Doctor Unassigned, Freeland [facility] 1.2840.114 350.1.13.10 4.2.7.2.686 [id number] [facility] 2018-10-31 15:40:31 2018-10-31 15:57:46 Office Visit [place] Ac [facility] 1.2.840.114 350.1.13.10 4.2.7.2.686 [id number] 107 [id number] [facility] Results Test Description Test Time Test Comments Results Result Co mments Source [facility] [id number] 16:51:00* Test Item Value Reference Range Interpretation Comme nts POCT PREG (test code = 1605) Negative On board controls acceptable with C Line (test code = 3574) Yes POCT PREG LOT # (test code = 3575) POCT PREG TEST DATE ( test code = 3576) [facility] WITH [id number] 05:59:31* Test Item Value Reference Range Interpretation Comme nts WBC (test code = 6690-2) 8.58 See_Comment [Automated messa ge] The system which generated this result transmitted reference range: 4.30 - 11.10 10*3/?L. The reference range was not used to interpret this result as normal/abnormal. RBC (test code = 789-8) 3.77 See_Comment L [Automated messa ge] The system which generated this result transmitted reference range: 3.93 - 5.25 10*6/?L. The reference range was not used to interpret this result as normal/abnormal. HGB (test code = 718-7) 10.1 g/dL 11.6-15.0 L HCT (test code = 4544-3) 32.6 % 35.7-45.2 L MCV (test code = 787-2) 86.5 fL 80.6-95.5 MCH (test code = 785-6) 26.8 pg 25.9-32.8 MCHC (test code = 786-4) 31.0 g/dL 31.6-35.1 L RDW-SD (test code = 52542-7) 39.0 fL 39.0-49.9 RDW-CV (test code = 788-0) 12.2 % 12.0-15.5 PLT (test code = 777-3) 373 See_Comment H [Automated messa ge] The system which generated this result transmitted reference range: 166 - 358 10*3/?L. The reference range was not used to interpret this result as normal/abnormal. MPV (test code = 94410-9) 12.3 fL 9.5-12.9 NRBC/100 WBC (test code = 3554740252) 0.0 See_Comment [Automated City Be[place] ssage] The system which generated this result transmitted reference range: 0.0 - 10.0 /100 WBCs. The reference range was not used to interpret this result as normal/abnormal. NRBC x10^3 (test code = 8316444633) See_Comment [Automated messa ge] The system which generated this result transmitted reference range: 10*3/?L. The reference range was not used to interpret this result as normal/abnormal. GRAN MAT (NEUT) % (test code = 770-8) 64.0 % IMM GRAN % (test code = 0729412158) 0.30 % LYMPH % (test code = 736-9) 27.5 % MONO % (test code = 5905-5) 5.8 % EOS % (test code = 713-8) 1.7 % BASO % (test code = 706-2) 0.7 % GRAN MAT x10^3(ANC) (test code = 9504549735) 5.48 10*3/uL 1.88-7.09 IMM GRAN x10^3 (test code = 4210352023) 0.03 10*3/uL 0.00-0.06 LYMPH x10^3 (test code = 731-0) 2.36 10*3/uL 1.32-3.29 MONO x10^3 (test code = 742-7) 0.50 10*3/uL 0.33-0.92 EOS x10^3 (test code = 711-2) 0.15 10*3/uL 0.03-0.39 BASO x10^3 (test code = 704-7) 0.06 10*3/uL 0.01-0.07 Lab Interpretation (test code = 92999-5) Abnormal [facility] (D) IMMUNE [id number] 19:41:02* Test Item Value Reference Range Interpretation Comme nts RHIG CANDIDATE? (test code = 5188) No- see comment Patient is not a candidate for RhIg- Patient is Rh Positive.Performed at [facility] Laboratory Services - [facility] Blood [address] [place] [address]Erbr Free: [phone] No. [id number] [facility] HospitalGALV ONLY - SYPHILIS [id number] 14:55:03* Test Item Value Reference Range Interpretation Comme nts Syphilis IgG/IgM (test code = 34163-0) Non-reactive Non-reactive TIMOTHY (test code = TIMOTHY) Non-reactive - No serologic evidence of T. pallidum infection. Cannot exclude incubating or early syphilis. Submit a second specimen in 2-4 weeks if syphilis is clinically suspected. Equivocal - Further testing to follow. Reactive - Further testing to follow. Lab Interpretation (test code = 47217-6) Normal [facility] HospitalArterial Cord [id number] 14:36:22* Test Item Value Reference Range Interpretation Comme nts BASE EXCESS, CORD (test code = 7784601635) -6.6 mEq/L AC PH, CORD (BEAKER) (test code = 6797548037) 7.25 7.18-7.38 PC02, CORD (test code = 9098135178) 49 See_Comment [Automated messa ge] The system which generated this result transmitted reference range: 32 - 66 mmHg. The reference range was not used to interpret this result as normal/abnormal. PO2, CORD (test code = 2444134487) 21 See_Comment [Automated messa ge] The system which generated this result transmitted reference range: 10 - 30 mmHg. The reference range was not used to interpret this result as normal/abnormal. BICARBONATE, CORD (test code = 5575997499) 21 See_Comment [Automated messa ge] The system which generated this result transmitted reference range: 17 - 27 mEq/L. The reference range was not used to interpret this result as normal/abnormal. [facility] [id number] 14:35:01* Test Item Value Reference Range Interpretation Comme nts VENOUS BASE EXCESS, CORD (test code = 5821688232) -3.6 mEq/L VENOUS PH, CORD (test code = 6896003549) 7.36 7.25-7.45 VENOUS PC02, CORD (test code = 0531580293) 39 See_Comment [Automated messa ge] The system which generated this result transmitted reference range: 27 - 49 mmHg. The reference range was not used to interpret this result as normal/abnormal. VENOUS PO2, CORD (test code = 7977318117) 32 See_Comment [Automated me ssage] The system which generated this result transmitted reference range: 17 - 41 mmHg. The reference range was not used to interpret this result as normal/abnormal. VENOUS BICARBONATE, CORD (test code = 2138133714) 21 See_Comment [Automated messa ge] The system which generated this result transmitted reference range: 12 - 29 mEq/L. The reference range was not used to interpret this result as normal/abnormal. [facility] HospitalHIV 1/2 AG-AB WITH [id number] 00:43:22* Test Item Value Reference Range Interpretation Comme nts HIV Semi-quantitative (test code = 19135-7) 0.09 Negative TIMOTHY (test code = TIMOTHY) Non-reactive for HIV-1 antigen and HIV-1/HIV-2 antibodies. ?No laboratory evidence of HIV infection. ?Repeat in 2-4 weeks if acute HIV infection is suspected. [facility] HospitalHepatitis B Surface [id number] 23:04:25 * Test Item Value Reference Range Interpretation Comme nts HBsAg Semi-Quantitative (vida t code = 5195-3) 0.17 Negative [facility] HospitalCBC with [id number] 21:44:01* Test Item Value Reference Range Interpretation Comme nts WBC (test code = 6690-2) 16.02 See_Comment H [Automated message] The system which generated this result transmitted reference range: 4.30 - 11.10 10*3/?L. The reference range was not used to interpret this result as normal/abnormal. RBC (test code = 789-8) 4.01 See_Comment [Automated message] The system which generated this result transmitted reference range: 3.93 - 5.25 10*6/?L. The reference range was not used to interpret this result as normal/abnormal. HGB (test code = 718-7) 11.5 g/dL 11.6-15.0 L HCT (test code = 4544-3) 33.8 % 35.7-45.2 L MCV (test code = 787-2) 84.3 fL 80.6-95.5 MCH (test code = 785-6) 28.7 pg 25.9-32.8 MCHC (test code = 786-4) 34.0 g/dL 31.6-35.1 RDW-SD (test code = 85936-8) 39.6 fL 39.0-49.9 RDW-CV (test code = 788-0) 12.9 % 12.0-15.5 PLT (test code = 777-3) 290 See_Comment [Automated message] The system which generated this result transmitted reference range: 166 - 358 10*3/?L. The reference range was not used to interpret this result as normal/abnormal. MPV (test code = 90806-3) 12.0 fL 9.5-12.9 NRBC/100 WBC (test code = 7743374866) 0.0 See_Comment [Automated message] The system which generated this result transmitted reference range: 0.0 - 10.0 /100 WBCs. The reference range was not used to interpret this result as normal/abnormal. NRBC x10^3 (test code = 1128086437) See_Comment [Automated message] The system which generated this result transmitted reference range: 10*3/?L. The reference range was not used to interpret this result as normal/abnormal. GRAN MAT (NEUT) % (test code = 770-8) 74.5 % IMM GRAN % (test code = 3484554037) 1.40 % LYMPH % (test code = 736-9) 18.1 % MONO % (test code = 5905-5) 5.1 % EOS % (test code = 713-8) 0.6 % BASO % (test code = 706-2) 0.3 % GRAN MAT x10^3(ANC) (test code = 2063415137) 11.92 10*3/uL 1.88-7.09 H IMM GRAN x10^3 (test code = 3132723514) 0.23 10*3/uL 0.00-0.06 H LYMPH x10^3 (test code = 731-0) 2.90 10*3/uL 1.32-3.29 MONO x10^3 (test code = 742-7) 0.82 10*3/uL 0.33-0.92 EOS x10^3 (test code = 711-2) 0.10 10*3/uL 0.03-0.39 BASO x10^3 (test code = 704-7) 0.05 10*3/uL 0.01-0.07 Lab Interpretation (test code = 76542-9) [facility] [id number] 21:39:00 * Test Item Value Reference Range Interpretation Comme nts ABO & RH (test code = 20) B POSITIVE IAT (test code = 1185) Negative [facility] URINALYSIS W SPECIFIC [id number] 13:41:00* Test Item Value Reference Range Interpretation Comme nts POCT U SP GRAV (test code = 3255) . 1.005-1.025 POCT PH U (test code = 3254) . 5-8 POCT U LEUK EST (test code = 3263) . Negative - N egative POCT U NIT (test code = 3262) .. Negative - Negati ve POCT U PROT (test code = 3259) neg Negative - Negat rianna POCT U GLU (test code = 3256) neg Negative - Negati ve POCT U KETONE (test code = 3258) . Negative - Neg ative POCT U UROBILI (test code = 3260) . 0.2-1 POCT U BILI (test code = 3261) . Negative - Negat rianna POCT U BLD (test code = 3257) . Negative - Negati ve POCT U COLOR (test code = 3266) . POCT U APPEAR (test code = 3267) . [facility] URINALYSIS W SPECIFIC [id number] 16:09:00* Test Item Value Reference Range Interpretation Comme nts POCT U SP GRAV (test code = 3255) . 1.005-1.025 POCT PH U (test code = 3254) . 5-8 POCT U LEUK EST (test code = 3263) . Negative - N egative POCT U NIT (test code = 3262) . Negative - Negati ve POCT U PROT (test code = 3259) trace Negative - Negat rianan POCT U GLU (test code = 3256) neg Negative - Negati ve POCT U KETONE (test code = 3258) . Negative - Neg ative POCT U UROBILI (test code = 3260) . 0.2-1 POCT U BILI (test code = 3261) . Negative - Negat rianna POCT U BLD (test code = 3257) . Negative - Negati ve POCT U COLOR (test code = 3266) . POCT U APPEAR (test code = 3267) . [facility] URINALYSIS W SPECIFIC [id number] 16:06:00* Test Item Value Reference Range Interpretation Comme nts POCT U SP GRAV (test code = 3255) . 1.005-1.025 POCT PH U (test code = 3254) 6 mg/dl 5-8 POCT U LEUK EST (test code = 3263) Trace Negative - Negative POCT U NIT (test code = 3262) Neg Negative - Negati ve POCT U PROT (test code = 3259) Trace Negative - Negat rianna POCT U GLU (test code = 3256) Neg Negative - Negati ve POCT U KETONE (test code = 3258) None Negative - Neg ative POCT U UROBILI (test code = 3260) . 0.2-1 POCT U BILI (test code = 3261) . Negative - Negat rianna POCT U BLD (test code = 3257) Trace Negative - Negati ve POCT U COLOR (test code = 3266) POCT U APPEAR (test code = 3267) [facility] URINALYSIS W SPECIFIC [id number] 12:55:00* Test Item Value Reference Range Interpretation Comme nts POCT U SP GRAV (test code = 3255) . 1.005-1.025 POCT PH U (test code = 3254) . 5-8 POCT U LEUK EST (test code = 3263) . Negative - Negative POCT U NIT (test code = 3262) . Negative - Negati ve POCT U PROT (test code = 3259) trace Negative - Negat rianna POCT U GLU (test code = 3256) negative Negative - Negati ve POCT U KETONE (test code = 3258) . Negative - Neg ative POCT U UROBILI (test code = 3260) . 0.2-1 POCT U BILI (test code = 3261) . Negative - Negat rianna POCT U BLD (test code = 3257) . Negative - Negati ve POCT U COLOR (test code = 3266) . POCT U APPEAR (test code = 3267) . [facility] URINALYSIS W SPECIFIC [id number] 12:55:00* Test Item Value Reference Range Interpretation Comme nts POCT U SP GRAV (test code = 3255) . 1.005-1.025 POCT PH U (test code = 3254) . 5-8 POCT U LEUK EST (test code = 3263) . Negative - Negative POCT U NIT (test code = 3262) . Negative - Negati ve POCT U PROT (test code = 3259) trace Negative - Negat rianna POCT U GLU (test code = 3256) negative Negative - Negati ve POCT U KETONE (test code = 3258) . Negative - Neg ative POCT U UROBILI (test code = 3260) . 0.2-1 POCT U BILI (test code = 3261) . Negative - Negat rianna POCT U BLD (test code = 3257) . Negative - Negati ve POCT U COLOR (test code = 3266) . POCT U APPEAR (test code = 3267) . [facility] URINALYSIS W SPECIFIC [id number] 15:58:00* Test Item Value Reference Range Interpretation Comme nts POCT U SP GRAV (test code = 3255) . 1.005-1.025 POCT PH U (test code = 3254) . 5-8 POCT U LEUK EST (test code = 3263) . Negative - N egative POCT U NIT (test code = 3262) . Negative - Negati ve POCT U PROT (test code = 3259) neg Negative - Negat rianna POCT U GLU (test code = 3256) neg Negative - Negati ve POCT U KETONE (test code = 3258) . Negative - Neg ative POCT U UROBILI (test code = 3260) . 0.2-1 POCT U BILI (test code = 3261) . Negative - Negat rianna POCT U BLD (test code = 3257) . Negative - Negati ve POCT U COLOR (test code = 3266) . POCT U APPEAR (test code = 3267) . [facility] URINALYSIS W SPECIFIC [id number] 15:58:00* Test Item Value Reference Range Interpretation Comme nts POCT U SP GRAV (test code = 3255) . 1.005-1.025 POCT PH U (test code = 3254) . 5-8 POCT U LEUK EST (test code = 3263) . Negative - N egative POCT U NIT (test code = 3262) . Negative - Negati ve POCT U PROT (test code = 3259) neg Negative - Negat rianna POCT U GLU (test code = 3256) neg Negative - Negati ve POCT U KETONE (test code = 3258) . Negative - Neg ative POCT U UROBILI (test code = 3260) . 0.2-1 POCT U BILI (test code = 3261) . Negative - Negat rianna POCT U BLD (test code = 3257) . Negative - Negati ve POCT U COLOR (test code = 3266) . POCT U APPEAR (test code = 3267) . [facility] URINALYSIS W SPECIFIC [id number] 15:02:00* Test Item Value Reference Range Interpretation Comme nts POCT U SP GRAV (test code = 3255) . 1.005-1.025 POCT PH U (test code = 3254) . 5-8 POCT U LEUK EST (test code = 3263) . Negative - N egative POCT U NIT (test code = 3262) . Negative - Negati ve POCT U PROT (test code = 3259) trace Negative - Negat rianna POCT U GLU (test code = 3256) neg Negative - Negati ve POCT U KETONE (test code = 3258) . Negative - Neg ative POCT U UROBILI (test code = 3260) . 0.2-1 POCT U BILI (test code = 3261) . Negative - Negat rianna POCT U BLD (test code = 3257) . Negative - Negati ve POCT U COLOR (test code = 3266) . POCT U APPEAR (test code = 3267) . [facility] URINALYSIS W SPECIFIC [id number] 16:18:00* Test Item Value Reference Range Interpretation Comme nts POCT U SP GRAV (test code = 3255) . 1.005-1.025 POCT PH U (test code = 3254) . 5-8 POCT U LEUK EST (test code = 3263) . Negative - N egative POCT U NIT (test code = 3262) . Negative - Negati ve POCT U PROT (test code = 3259) trace Negative - Negat rianna POCT U GLU (test code = 3256) neg Negative - Negati ve POCT U KETONE (test code = 3258) . Negative - Neg ative POCT U UROBILI (test code = 3260) . 0.2-1 POCT U BILI (test code = 3261) . Negative - Negat rianna POCT U BLD (test code = 3257) . Negative - Negati ve POCT U COLOR (test code = 3266) . POCT U APPEAR (test code = 3267) . [facility] URINALYSIS W SPECIFIC [id number] 16:18:00* Test Item Value Reference Range Interpretation Comme nts POCT U SP GRAV (test code = 3255) . 1.005-1.025 POCT PH U (test code = 3254) . 5-8 POCT U LEUK EST (test code = 3263) . Negative - N egative POCT U NIT (test code = 3262) . Negative - Negati ve POCT U PROT (test code = 3259) trace Negative - Negat rianna POCT U GLU (test code = 3256) neg Negative - Negati ve POCT U KETONE (test code = 3258) . Negative - Neg ative POCT U UROBILI (test code = 3260) . 0.2-1 POCT U BILI (test code = 3261) . Negative - Negat rianna POCT U BLD (test code = 3257) . Negative - Negati ve POCT U COLOR (test code = 3266) . POCT U APPEAR (test code = 3267) . [facility] URINALYSIS W SPECIFIC [id number] 16:18:00* Test Item Value Reference Range Interpretation Comme nts POCT U SP GRAV (test code = 3255) . 1.005-1.025 POCT PH U (test code = 3254) . 5-8 POCT U LEUK EST (test code = 3263) . Negative - N egative POCT U NIT (test code = 3262) . Negative - Negati ve POCT U PROT (test code = 3259) trace Negative - Negat rianna POCT U GLU (test code = 3256) neg Negative - Negati ve POCT U KETONE (test code = 3258) . Negative - Neg ative POCT U UROBILI (test code = 3260) . 0.2-1 POCT U BILI (test code = 3261) . Negative - Negat rianna POCT U BLD (test code = 3257) . Negative - Negati ve POCT U COLOR (test code = 3266) . POCT U APPEAR (test code = 3267) . [facility] URINALYSIS W SPECIFIC [id number] 15:26:00* Test Item Value Reference Range Interpretation Comme nts POCT U SP GRAV (test code = 3255) . 1.005-1.025 POCT PH U (test code = 3254) . 5-8 POCT U LEUK EST (test code = 3263) . Negative - N egative POCT U NIT (test code = 3262) . Negative - Negati ve POCT U PROT (test code = 3259) trace Negative - Negat rianna POCT U GLU (test code = 3256) neg Negative - Negati ve POCT U KETONE (test code = 3258) . Negative - Neg ative POCT U UROBILI (test code = 3260) . 0.2-1 POCT U BILI (test code = 3261) . Negative - Negat rianna POCT U BLD (test code = 3257) . Negative - Negati ve POCT U COLOR (test code = 3266) . POCT U APPEAR (test code = 3267) . [facility] URINALYSIS W SPECIFIC [id number] 15:26:00* Test Item Value Reference Range Interpretation Comme nts POCT U SP GRAV (test code = 3255) . 1.005-1.025 POCT PH U (test code = 3254) . 5-8 POCT U LEUK EST (test code = 3263) . Negative - N egative POCT U NIT (test code = 3262) . Negative - Negati ve POCT U PROT (test code = 3259) trace Negative - Negat rianna POCT U GLU (test code = 3256) neg Negative - Negati ve POCT U KETONE (test code = 3258) . Negative - Neg ative POCT U UROBILI (test code = 3260) . 0.2-1 POCT U BILI (test code = 3261) . Negative - Negat rianna POCT U BLD (test code = 3257) . Negative - Negati ve POCT U COLOR (test code = 3266) . POCT U APPEAR (test code = 3267) . [facility] URINALYSIS W SPECIFIC [id number] 15:26:00* Test Item Value Reference Range Interpretation Comme nts POCT U SP GRAV (test code = 3255) . 1.005-1.025 POCT PH U (test code = 3254) . 5-8 POCT U LEUK EST (test code = 3263) . Negative - N egative POCT U NIT (test code = 3262) . Negative - Negati ve POCT U PROT (test code = 3259) trace Negative - Negat rianna POCT U GLU (test code = 3256) neg Negative - Negati ve POCT U KETONE (test code = 3258) . Negative - Neg ative POCT U UROBILI (test code = 3260) . 0.2-1 POCT U BILI (test code = 3261) . Negative - Negat rianna POCT U BLD (test code = 3257) . Negative - Negati ve POCT U COLOR (test code = 3266) . POCT U APPEAR (test code = 3267) . [facility] URINALYSIS W SPECIFIC [id number] 15:26:00* Test Item Value Reference Range Interpretation Comme nts POCT U SP GRAV (test code = 3255) . 1.005-1.025 POCT PH U (test code = 3254) . 5-8 POCT U LEUK EST (test code = 3263) . Negative - N egative POCT U NIT (test code = 3262) . Negative - Negati ve POCT U PROT (test code = 3259) trace Negative - Negat rianna POCT U GLU (test code = 3256) neg Negative - Negati ve POCT U KETONE (test code = 3258) . Negative - Neg ative POCT U UROBILI (test code = 3260) . 0.2-1 POCT U BILI (test code = 3261) . Negative - Negat rianna POCT U BLD (test code = 3257) . Negative - Negati ve POCT U COLOR (test code = 3266) . POCT U APPEAR (test code = 3267) . [facility] URINALYSIS W SPECIFIC [id number] 14:46:00* Test Item Value Reference Range Interpretation Comme nts POCT U SP GRAV (test code = 3255) . 1.005-1.025 POCT PH U (test code = 3254) . 5-8 POCT U LEUK EST (test code = 3263) . Negative - Negative POCT U NIT (test code = 3262) . Negative - Negati ve POCT U PROT (test code = 3259) trace Negative - Negat rianna POCT U GLU (test code = 3256) negative Negative - Negati ve POCT U KETONE (test code = 3258) . Negative - Neg ative POCT U UROBILI (test code = 3260) . 0.2-1 POCT U BILI (test code = 3261) . Negative - Negat rianna POCT U BLD (test code = 3257) . Negative - Negati ve POCT U COLOR (test code = 3266) . POCT U APPEAR (test code = 3267) . [facility] URINALYSIS W SPECIFIC [id number] 14:46:00* Test Item Value Reference Range Interpretation Comme nts POCT U SP GRAV (test code = 3255) . 1.005-1.025 POCT PH U (test code = 3254) . 5-8 POCT U LEUK EST (test code = 3263) . Negative - Negative POCT U NIT (test code = 3262) . Negative - Negati ve POCT U PROT (test code = 3259) trace Negative - Negat rianna POCT U GLU (test code = 3256) negative Negative - Negati ve POCT U KETONE (test code = 3258) . Negative - Neg ative POCT U UROBILI (test code = 3260) . 0.2-1 POCT U BILI (test code = 3261) . Negative - Negat rianna POCT U BLD (test code = 3257) . Negative - Negati ve POCT U COLOR (test code = 3266) . POCT U APPEAR (test code = 3267) . [facility] URINALYSIS W SPECIFIC [id number] 15:10:00* Test Item Value Reference Range Interpretation Comme nts POCT U SP GRAV (test code = 3255) . 1.005-1.025 POCT PH U (test code = 3254) . 5-8 POCT U LEUK EST (test code = 3263) . Negative - N egative POCT U NIT (test code = 3262) . Negative - Negati ve POCT U PROT (test code = 3259) 1+ Negative - Negat rianna POCT U GLU (test code = 3256) Neg Negative - Negati ve POCT U KETONE (test code = 3258) . Negative - Neg ative POCT U UROBILI (test code = 3260) . 0.2-1 POCT U BILI (test code = 3261) . Negative - Negat rianna POCT U BLD (test code = 3257) . Negative - Negati ve POCT U COLOR (test code = 3266) . POCT U APPEAR (test code = 3267) . [facility] URINALYSIS W SPECIFIC [id number] 15:10:00* Test Item Value Reference Range Interpretation Comme nts POCT U SP GRAV (test code = 3255) . 1.005-1.025 POCT PH U (test code = 3254) . 5-8 POCT U LEUK EST (test code = 3263) . Negative - N egative POCT U NIT (test code = 3262) . Negative - Negati ve POCT U PROT (test code = 3259) 1+ Negative - Negat rianna POCT U GLU (test code = 3256) Neg Negative - Negati ve POCT U KETONE (test code = 3258) . Negative - Neg ative POCT U UROBILI (test code = 3260) . 0.2-1 POCT U BILI (test code = 3261) . Negative - Negat rianna POCT U BLD (test code = 3257) . Negative - Negati ve POCT U COLOR (test code = 3266) . POCT U APPEAR (test code = 3267) . [facility] URINALYSIS W SPECIFIC [id number] 15:10:00* Test Item Value Reference Range Interpretation Comme nts POCT U SP GRAV (test code = 3255) . 1.005-1.025 POCT PH U (test code = 3254) . 5-8 POCT U LEUK EST (test code = 3263) . Negative - N egative POCT U NIT (test code = 3262) . Negative - Negati ve POCT U PROT (test code = 3259) 1+ Negative - Negat rianna POCT U GLU (test code = 3256) Neg Negative - Negati ve POCT U KETONE (test code = 3258) . Negative - Neg ative POCT U UROBILI (test code = 3260) . 0.2-1 POCT U BILI (test code = 3261) . Negative - Negat rianna POCT U BLD (test code = 3257) . Negative - Negati ve POCT U COLOR (test code = 3266) . POCT U APPEAR (test code = 3267) . [facility] URINALYSIS W SPECIFIC [id number] 15:10:00* Test Item Value Reference Range Interpretation Comme nts POCT U SP GRAV (test code = 3255) . 1.005-1.025 POCT PH U (test code = 3254) . 5-8 POCT U LEUK EST (test code = 3263) . Negative - N egative POCT U NIT (test code = 3262) . Negative - Negati ve POCT U PROT (test code = 3259) 1+ Negative - Negat rianna POCT U GLU (test code = 3256) Neg Negative - Negati ve POCT U KETONE (test code = 3258) . Negative - Neg ative POCT U UROBILI (test code = 3260) . 0.2-1 POCT U BILI (test code = 3261) . Negative - Negat rianna POCT U BLD (test code = 3257) . Negative - Negati ve POCT U COLOR (test code = 3266) . POCT U APPEAR (test code = 3267) . [facility] URINALYSIS W SPECIFIC [id number] 15:34:00* Test Item Value Reference Range Interpretation Comme nts POCT U SP GRAV (test code = 3255) . 1.005-1.025 POCT PH U (test code = 3254) . 5-8 POCT U LEUK EST (test code = 3263) . Negative - N egative POCT U NIT (test code = 3262) . Negative - Negati ve POCT U PROT (test code = 3259) trace Negative - Negat rianna POCT U GLU (test code = 3256) neg Negative - Negati ve POCT U KETONE (test code = 3258) . Negative - Neg ative POCT U UROBILI (test code = 3260) . 0.2-1 POCT U BILI (test code = 3261) . Negative - Negat rianna POCT U BLD (test code = 3257) . Negative - Negati ve POCT U COLOR (test code = 3266) . POCT U APPEAR (test code = 3267) . [facility] URINALYSIS W SPECIFIC [id number] 15:34:00* Test Item Value Reference Range Interpretation Comme nts POCT U SP GRAV (test code = 3255) . 1.005-1.025 POCT PH U (test code = 3254) . 5-8 POCT U LEUK EST (test code = 3263) . Negative - N egative POCT U NIT (test code = 3262) . Negative - Negati ve POCT U PROT (test code = 3259) trace Negative - Negat rianna POCT U GLU (test code = 3256) neg Negative - Negati ve POCT U KETONE (test code = 3258) . Negative - Neg ative POCT U UROBILI (test code = 3260) . 0.2-1 POCT U BILI (test code = 3261) . Negative - Negat rianna POCT U BLD (test code = 3257) . Negative - Negati ve POCT U COLOR (test code = 3266) . POCT U APPEAR (test code = 3267) . [facility] URINALYSIS W/O SPECIFIC [id number] 15:45:00* Test Item Value Reference Range Interpretation Comme nts POCT PH U (test code = 3254) 5 mg/dl 5-8 POCT U LEUK EST (test code = 3263) 2+ Negative - Negative POCT U NIT (test code = 3262) POS Negative - Negati ve POCT U PROT (test code = 3259) Trace Negative - Negat rianna POCT U GLU (test code = 3256) Neg Negative - Negati ve POCT U KETONE (test code = 3258) None Negative - Neg ative POCT U BLD (test code = 3257) Trace Negative - Negati ve [facility] [id number] 15:44:00* Test Item Value Reference Range Interpretation Comme nts POCT PREG (test code = 1605) Positive On board controls acceptable with C Line (test code = 3574) Yes POCT PREG LOT # (test code = 3575) POCT PREG TEST DATE ( test code = 3576) [facility] [id number] 15:48:00* Test Item Value Reference Range Interpretation Comme nts POCT PREG (test code = 1605) Negative On board controls acceptable with C Line (test code = 3574) Yes POCT PREG LOT # (test code = 3575) POCT PREG TEST DATE ( test code = 3576) [facility] [id number] 15:48:00* Test Item Value Reference Range Interpretation Comme nts POCT PREG (test code = 1605) Negative On board controls acceptable with C Line (test code = 3574) Yes POCT PREG LOT # (test code = 3575) POCT PREG TEST DATE ( test code = 3576) [facility] [id number] 22:27:00* Test Item Value Reference Range Interpretation Comme nts POCT PREG (test code = 1605) Negative On board controls acceptable with C Line (test code = 3574) Yes POCT PREG LOT # (test code = 3575) POCT PREG TEST DATE ( test code = 3576) [facility] [id number] 22:27:00* Test Item Value Reference Range Interpretation Comme nts POCT PREG (test code = 1605) Negative On board controls acceptable with C Line (test code = 3574) Yes POCT PREG LOT # (test code = 3575) POCT PREG TEST DATE ( test code = 3576) [facility] History and Physical Notes Date/Time Note Provider Source 2022-11-28 12:51:05 [id number] ormatting of this note is different from the original.ANTEPARTUM HISTORY & PHYSICALIDENTIFYING DATAArkristina Harmon is 21 year old, /White, 36w4d, female with MIROSLAVA 12/22/2022, by Ultrasound. : 2000MRN: [id number] Care Physician: Lyudmila Jiangpespital Day: 1CHIEF COMPLAINTcontractionsHISTORY OF PRESENT [id number] year old @36w4d presents as a transfer from [facility].Pt states contractions have decreased and just feel pressure.Denies vb or LOF. +FMPCP with [facility] clinicPAST OBSTETRIC HISTORYOB History Para Term AB Living 2 1 1 1 SAB IAB Ectopic Multiple Live Births 1 # Outcome Date GA Lbr Jakub/2nd Weight Sex Delivery Anes PTL Lv 2 Current 1 Term 05/03/17 37w0d 3317 g M NORMAL SPONT HANSEL Complications: Gestational hypertension PAST MEDICAL HISTORYProblem list: Patient Active Problem List Diagnosis Date Noted Obesity (BMI 30-39.9) 11/28/2022 Irregular uterine contractions 11/28/2022 GBS (group B Streptococcus carrier), +RV culture, currently 11/25/2022 Anemia of mother in , antepartum 09/26/2022 Trichomonal vaginitis during 05/10/2022 UTI in 05/02/2022 Supervision of high-risk 04/27/2022 Multiparity 04/27/2022 History of gestational hypertension 04/27/2022 Lump or mass in breast 05/26/2021 Need for prophylactic vaccination and inoculation against influenza 03/16/2020 Chlamydia trachomatis infection of lower genitourinary sites 08/29/2018 Obesity in 07/03/2018 Operations: No past surgical history on file.Prior surgeries at outside hospitals: nonePast Medical History: Diagnosis Date Anemia Ongoing, not on meds Breakthrough bleeding on Nexplanon 08/29/2018 ongoing Hypertension 2017 During Screen for STD (sexually transmitted disease) Trichomonal vaginitis during 05/10/2022 CURRENT HEALTH STATUSMedications: No current facility-administered medications for this encounter. Allergies and drug reactions: Patient has no known allergies.HOME MEDICATIONSMedications Prior to Admission Medication Sig Dispense Refill Last Dose ascorbic acid, vitamin C, 500 mg tablet Take 1 tablet by mouth in the morning and 1 tablet at noon and 1 tablet in the evening. 90 tablet 2 ferrous sulfate 325 mg (65 mg iron) tablet Take 1 tablet by mouth in the morning and 1 tablet in the evening. 60 tablet 3 multivitamin ( VITAMIN) tablet Take 1 tablet by mouth in the morning. 90 tablet 3 proMETHazine 25 mg tablet Take 1 tablet by mouth every 6 (six) hours as needed for Nausea and Vomiting (N/V). 30 tablet 0 SOCIAL HISTORYTobacco History: Social History Tobacco Use Smoking Status Former Packs/day: .1 Types: Cigarettes Start date: 07/03/2016 Quit date: 04/16/2022 Years since quittin.6 Smokeless Tobacco Never Drug History: Social History Substance and Sexual Activity Drug Use No Alcohol History: Social History Substance and Sexual Activity Alcohol Use Yes Comment: quit 04/16/2022 FAMILY HISTORYFamily History Problem Relation Age of Onset Heart Mother Uterine Cancer Mother Cancer Mother Ovarian Cancer Mother High cholesterol Brother Arthritis Maternal Grandmother Heart Maternal Grandmother Diabetes Maternal Grandmother Hypertension Maternal Grandmother No Significant Medical Problems Sister REVIEW OF SYSTEMSGeneral: negativeConstitutional: weight gainEyes: negativeENT/Mouth: negativeCardiovascular: negativeRespiratory: negativeGastrointestinal:painGenitourinary : negativeMusculoskeletal: negativeSkin/breast: negativeNeurological: negativePsychiatric: negativeEndocrine: negativeHemat/Lymph: negativeAllergic/Immuno:noneVITAL SIGNSBP: (115-135)/(66-82) Temp: [36.6 ?C (97.9 ?F)] Temp source: Temporal Artery (11/28 0930)Pulse: [62-84] Resp: [20] SpO2: [98 %-100 %] Height: [175.3 cm (5' 9")] Weight: [120.7 kg (266 lb)] BMI (calculated): [39.28] PHYSICAL EXAMINATIONSGeneral: well-developed, well-nourishedAbdomen: tenderness - normalGU: OB pelvic exam performed? Yes. Dilation - 1 cmEffacement - 0 % %Station - -4 by [facility] PROOFER OF LABORATORY, PATHOLOGY, AND RADIOLOGY DATALab results:CBC BMP PT/INR WBC (10*3/?L) Date Value 11/23/2022 12.73 (H) NA (mmol/L) Date Value 06/20/2017 142 No results found for: "PT" RBC (10*6/?L) Date Value 11/23/2022 3.59 (L) K (mmol/L) Date Value 06/20/2017 3.9 No results found for: "PTINR" PLT (10*3/?L) Date Value 11/23/2022 253 CALCIUM (mg/dL) Date Value 06/20/2017 10.1 HGB (g/dL) Date Value 11/23/2022 10.1 (L) CL (mmol/L) Date Value 06/20/2017 103 aPTT HCT (%) Date Value 11/23/2022 31.0 (L) BUN (mg/dL) Date Value 06/20/2017 12 No results found for: "APTTPAT" CREATININE (mg/dL) Date Value 06/20/2017 0.60 GLUCOSE (mg/dL) Date Value 06/20/2017 101 CO2 TOTAL (mmol/L) Date Value 06/20/2017 26 Type & Screen Rubella Varicella ABO & RH (no units) Date Value 04/27/2022 B POSITIVE Rubella screen IgG (no units) Date Value 04/27/2022 Positive No results found for: "VZVG" No results found for: "TSABINT" Hep B HIV Syphilis No results found for: "HBS" No results found for: "HIV" No results found for: "SYPG" Group B Strep Chlamydia No results found for: "CGBS" C. trachomatis Nucleic Acid (no units) Date Value 11/23/2022 Negative X-ray results: nonePlacenta Accreta ScreeningPrior ? : NoPrior Uterine Surgery?: NoPlacenta low lying/previa in current ? : NoScreening outcome:A positive screening outcome indicates a history of prior delivery or prior uterine surgery, AND the presence of either a placenta low lying/previa or ultrasound suspicion of PASD in the current . Negative screening. HEART RATE Cat 1Irregular contractionsASSESSMENT AND PLAN Active Problems: Obesity (BMI 30-39.9) (11/28/2022) (POA: Unknown) Irregular uterine contractions (11/28/2022) (POA: Yes)Assessment: Not in active labor, reassuring statusPlan: Discharge home with labor warningsMarisol MD Kristin [id number] and physical [id number] and physical [id number] 9|[id number] for patient gkxn98697-2Dbozurq and physical noteLNUT[address] Dg[id number] JDNVKOLVVERBGWAX0267-42-30O56:54:401.2.840 .260361.1.72.3.15|1.2.840.927070.1.13.104. 2.7.2.727879_[id number] [facility] Procedure Notes Date/Time Note Provider Source 2022-12-16 01:04:12 8674-38-20Y97:04:12A ssociated Order(s): Central Neuraxial Block Central Neuraxial Block Date/Time: 12/16/2022 1:04 AMPerformed by: Marcus De Leon MDAuthorized by: Hiram Foster MD Patient Location: OBEnd Time: 12/16/2022 1:04 AMReason for Block: OB request, Patient request, Labor analgesia, Surgical anesthesia and Post-op pain managementStaff: Anesthesiologist: Hiram Foster MD Resident/AIRCRAFT STRUCTURAL DESIGN ENGINEER: Marcus De Leon MD Performed by: resident/CRNAPreanesthetic Checklist: patient identified, IV checked, risks and benefits explained, monitors and equipment checked, timeout performed, pre-op evaluation, site marked and anesthesia consentProcedure: Type of Neuraxial: Epidural Epidural Description: 1st attempt Sterility Prep cap, drape, gloves, hand hygiene and mask Patient Position: sitting Prep: Betadine and patient draped Monitoring: heart rate, continuous pulse ox, heart rate / toco and NIBP Location: lumbar (1-5) Lumbar: L3-L4 Approach: midline Technique: ALEXI air and catheter Guidance with: landmark technique}Epidural/Spinal [place] and/or Catheter: Epidural/Spinal Kit: Lorna Needle Type: Tuohy Needle Gauge: 17 G Needle Length: 3.5 in (8.89 cm) Needle Insertion Depth: 7 Catheter Type: multiport Catheter Size: 19 G Catheter at Skin Depth: 11 Number of Attempts: 1 Test Dose: negative and lidocaine 1.5% with epinephrine 1-to-200,000 Dose: 3 cc Catheter Securement Method: surgical tape and TegadermAssessment: Block Outcome: a full evaluation is pending, patient comfortable and patient tolerated procedure well Procedure Assessment: patient tolerated procedure well with no complicationsNotes: Patient identified; pre-procedure verification.Patient prepped and draped in standard sterile fashion using betadine x 3Subcutaneous infiltration with 1% Lidocaine ALEXI at 7 cm; catheter secured at 11 cm with mastisol, tegaderm x2 and 3-inch clear tape.Aspiration test negative x 3Test dose negativePatient tolerated procedure well with no immediate complicationsEpidural expectations; PCEA explained and fall precautions given. 39164-5Dqlaodbjopdiov procedure epkgVA4605-05-50D55:04:49Anesthes iology procedure noteTXT1.2.840.487854.1.13.104.2. 7.2.059879|[id number] for patient jxnq48524-9Zqicwzak operation avetRNII-KHJIWDVZOWIZYGSF-GEXMPBX [address] LirzDiullwxagVenzgwxghYBBH7233292 980QBYYZJUIQDAFRGKDLVKKSF8784-99- 15T01:04:491.2.840.527758.1.72.3. 15|1.2.840.510484.1.13.104.2.7.2. 727879_[id number] AN-ANESTHESIOLOGY [facility] Notes Date/Time Note Provider Source 2022-12-19 11:34:57 5410-22-48Y15:34:57 Pt calling, requesting work excuse for her partner Maxi Blakely for date of IOL. Letter prepared and sent via [employer].Rosemary Rose RN 12/19/22 11:36 AM 61597-4Mtgaxaxyj encounter ErznNZ0558-59-25Z69:41:45Telephone encounter NoteTXT1.2.840.516759.1.13.104.2.7. 2.176980|[id number] for patient qalr42875-9WmhmXEAMEUOFSL[address] Ot[id number] 5GHVOECOHZZFPDYWVCFAUYA7117-61-74J2 1:41:451.2.840.675971.1.72.3.15|1.2 .840.864214.1.13.104.2.7.2.727879_1 [id number] [facility] 2022-12-19 11:18:36 0704-57-56K00:18:36 Marla Harmon is a 21 year old female calling requesting excuse letter for being at the delivering of baby on 12/15. Please contact patient at [phone] signed by Toña Lam at 12/19/2022 11:21 AM GSD56336-9Ukqhpiygd encounter UdnjIX0193-41-15S88:21:01Telephone encounter NoteTXT1.2.840.861664.1.13.104.2.7. 2.314629|[id number] for patient [id number] D Lars[address] [id number] 7EXQAMUTKLGNVQTAKIHXNKY5311-50-48F6 1:21:011.2.840.223010.1.72.3.15|1.2 .840.425990.1.13.104.2.7.2.727879_1 [id number] Toña Lam [facility] 2022-12-17 14:15:17 5569-13-51C05:15:17 Problem: PainGoal: Control of pain at or below patient's documented comfort goalOutcome: Adequate for dischargeGoal: Reduction in pain sensationOutcome: Adequate for discharge Problem: Infection RiskGoal: Absence of infectionOutcome: Adequate for discharge Problem: Discharge Planning - PostpartumGoal: Adequate for dischargeOutcome: Adequate for dischargeGoal: Mood stableOutcome: Adequate for discharge Problem: Falls, Risk ofGoal: Absence of fallsOutcome: Adequate for discharge 09788-6Eudj of care keerDF2337-49-92M65:15:21Plan of care noteTXT1.2.840.288929.1.13.104.2.7. 2.154358|[id number] for patient [id number] M Seaton RN[id number] 6KRDOBMGZTKQRTVIHMTAEBS4108-23-72Q1 4:15:211.2.840.951322.1.72.3.15|1.2 .840.967374.1.13.104.2.7.2.727879_1 [id number] Darline Leon RN [facility] 2022-12-17 14:00:00 1487-49-07F92:00:00 Images from the original note were not included.This note was copied from a baby's chart. Assessment (most recent) Assessment - 12/17/22 1400 General Information Visit Initial Percent of weight loss- Infant 3.22 Number of voids last 24 hours- 2 Number of stools last 24 hours- Infant 4 Mom's age (years) 23 years Gestational age 39 weeks 2 Parity 2 Living Children 2 Feeding plan Breast Breastfeed previously No plans As long as possible Planned maternity leave -- about 5 months Breast Pump Has Breast Pump Electric [employer] Class -- recommended to apply for [facility] Delivery method Oral Assessment Oral assessment New assessment Date of 12/16/22 Time of 0905 Infant location Mother Baby Unit Chin Normal Palate assessment Normal;High Restricted tongue motion observed Able to strip gloved finger;Able to cup finger Upper lip assessment Normal;Can flange Breast Assessment Breast Assessment Initial Symmetry Symmetrical Size L (D-DD) Shape Rounded;Pendulous Other Soft Nipple & Areola Assessment Left Areola Pliable Right Areola Pliable Left Nipple Colostrum visible;Intact;Everted;Short Right Nipple Colostrum visible;Intact;Everted;Short Literature Resources Resources guide;[employer] Education 6 months exclusive , up to and beyond 1 year with complimentary foods;Infant hunger cues;On-demand feeds at least 8 or more over 24 hours;Diaper counts/color;Lactogenesis;Benefits of skin to skin contact;Encouraged rooming-in;Waking techniques;Signs of an effective latch; stomach size;Post circumcision feeding patterns;2nd day/growth spurt cluster feeds Biazzi Nitrator Operator Observation Reported;Mom states infant latches well with no pain reports was well on left side; difficulty on right Position right side Cross cradle assisted to breastfeed on right in cross cradle. Infant sleepy after circumcision; Mom able to manually express drops colostrum Interventions Taught hand expression Mother demonstrated teach back of Breast massage and hand expression Follow up Mom will call staff;Apply to [facility] services after discharge;[facility] warmline;[employer] Recommended Feeding Plan Recommended feeding plan On-demand , 8-12 times in 24 hours not to exceed 6 hours between feeds;Frequent dyuz-pp-wdyg time with parents Nakia Mayes RN, BSN, IBCLC 21182-8Vlmlcmgynu LonyJI0446-45-53A24:58:54Obstetrics NoteTXT1.2.840.188593.1.13.104.2.7. 2.793859|[id number] for patient [id number] L Pinter RNUT[address] EmhoGmdkv[id number] 5RQRGHXGHUPRJFUZSFSKFYE3249-51-00S7 4:58:541.2.840.903963.1.72.3.15|1.2 .840.962659.1.13.104.2.7.2.727879_1 [id number] Nakia Dafne Mayes RN [facility] 2022-12-16 17:10:13 3538-91-74W16:10:13 Problem: Intrapartum process (including labor pain)Goal: Absence of or reduction of complications of laborOutcome: Progressing as expectedGoal: Able to cope with painOutcome: Progressing as expectedGoal: Adequate to move to next level of careOutcome: Progressing as expectedGoal: Reduction in pain sensationOutcome: Progressing as expected Problem: PainGoal: Control of pain at or below patient's documented comfort goalOutcome: Progressing as expectedGoal: Reduction in pain sensationOutcome: Progressing as expected Problem: Infection RiskGoal: Absence of infectionOutcome: Progressing as expected Problem: Discharge Planning - PostpartumGoal: Adequate for dischargeOutcome: Progressing as expectedGoal: Mood stableOutcome: Progressing as expected Problem: Falls, Risk ofGoal: Absence of fallsOutcome: Progressing as expected 70485-5Keym of care xcyiNP6877-47-50Y44:10:16Plan of care noteTXT1.2.840.885176.1.13.104.2.7. 2.155021|[id number] for patient [id number] Jamal RNUTMB[address] Yt[id number] 1CRZTMDQTMDDLGLYEMRACWC7247-31-37T4 7:10:161.2.840.318682.1.72.3.15|1.2 .840.013813.1.13.104.2.7.2.727879_1 [id number] Hayleyjanes Jamal KINNEY [facility] 2022-12-16 11:41:25 7679-36-87H20:41:25 Patient: Marla Harmon Procedure Summary Date: 12/16/22 Room / Location: Anesthesia Start: 0034 Anesthesia Stop: 1121 Procedure: CENTRAL NEURAXIAL BLOCK Diagnosis: Scheduled Providers: Responsible Provider: Winifred Taylor MD Anesthesia Type: Epidural ASA Status: 2 Anesthesia Type: EpiduralLast vitalsBP 115/70 (12/16/22 1050) Temp Pulse 73 (12/16/22 1050) Resp SpO2 95 % (12/16/22 1102) There were no known notable events for this encounter.Anesthesia Post EvaluationPatient location during evaluation: bedsidePatient participation: complete - patient participatedLevel of consciousness: awakePain score: 0Pain management: adequateAirway patency: patentCardiovascular status: acceptableRespiratory status: acceptable, room air, unassisted and spontaneous ventilationHydration status: stableComments: ANESTHESIA FACULTY EPIDURAL NOTEDate of service: 12/16/2022atient examined, patient awake s/p with MONA. Now s/p catheter removal. BP 115/70 | Pulse 73 | Temp 37.1 ?C (98.7 ?F) (Oral) | Ht 1.753 m (5' 9") | Wt 120.7 kg (266 lb) | LMP 03/26/2022 | SpO2 95% | Unknown | BMI 39.28 kg/m? Block not fully resolved, as expected. Patient participated otherwise.Block resolving appropriately.Patient discharged from L&D according to criteria.Complications: No apparent complicationsFall precautions [place] [address]-5Hdlblcykoyswpb Postoperative evaluation and management mffiKQ6589-45-37G08:41:30Anesthesio logy Postoperative evaluation and management noteTXT1.2.840.405994.1.13.104.2.7. 2.557182|[id number] for patient kfhl51305-1Nvkqwtdd operation noteLNAN-ANESTHESIOLOGY ANESTHESIOLOGISTAN-ANESTHESIOLOGY ANESTHESIOLOGIST[address] Zv[id number] 0RFPNUGDRYGRLAJKAVUVUQU4120-45-09S3 1:41:301.2.840.751833.1.72.3.15|1.2 .840.358689.1.13.104.2.7.2.727879_1 [id number] AN-ANESTHESIOLOGY ANESTHESIOLOGIST [facility] 2022-12-16 10:16:16 1625-21-26D88:16:16 DELIVERY BY SPONTANEOUS VAGINAL DELIVERYDelivery Date: 12/16/2022 Delivery Time: 9:05 AM Delivery Summary The patient was admitted to the Labor & Delivery unit for IOL at 39w weeks.Delivery Physician: Rufino Forbes MD PhDTeaching Resident: ISAI Bonilla Faculty: Madeline Garcia MDIntrapartum Anesthesia/Analgesia: EpiduralMode of Delivery: Delivery of dominguez fetus with cephalic presentationFetusSpontaneous vaginal delivery of head with cephalic position, occipital anterior. As the head crowned and distended the perineum, no episiotomy was performed. A blue towel was used to protect the perineum as the head crowned and delivered. The other hand was used to exert pressure on the occiput to control the delivery of the head. The perineum was pushed with a towel-draped hand as the head and mouth was delivered over the perineum. The head was allowed to rotate externally to achieve natural body posture. Examination of neck revealed nuchal cord, which was Loose umbilical cord - reduced. The shoulder was delivered by gentle downward traction applied to head and downward traction for the delivery of anterior shoulder. This was followed by upward traction with delivery of posterior shoulder and body. After the delivery of infant, bulb suction was performed from ororpharynx and nostril with removal of clear amniotic fluid. A normal, male was delivered.The umbilical cord was double clamped, cut and the infant was handed off the field to the circulating nursePlacentaPlacenta was delivered spontaneously while the abdominal hand lifted the uterus cephalad and other hand keeping the umbilical cord slightly taut. LacerationLaceration Repair: Minor - R labial laceration closed with continuous sutures.Fourth StageFourth stage of labor was managed by uterine massage with abdominal hand and infusion 30 units of pitocin at 600cc/hr mixed with intravenous fluid. Intermittent atony of the lower uterine segment was noted. Bimanual massage with evacuation of the uterus was performed and pt was given 0.2mg of methergine once, followed by 250mcg of hemabate once, and 1000mg of misoprostol rectally. Adequate control of bleeding was achieved.EBL: 600 Complications: noneWeight: 3260 g 1 Minute 5 Minute 10 Minute Totals: 8 9 ssociated attestation - Madeline Garcia MD - 12/16/2022 10:30 AM CDT I was present for and supervised the entire procedure(s). 48472-4Rsmzf and delivery summary xlyzHW4638989Hnpi, Sangeeta1.2.840.902128.1.13.104.2.7 .2.782056XmakGaotzbapAS7317-34-87B9 0:30:35Labor and delivery summary noteTXT1.2.840.566185.1.13.104.2.7. 2.073617|[id number] for patient tmig44802-7GfbzQRZPZGWJPS[address] KdyaHifdnofakWmwdkicrtUJCR073828102 9WXGMXEPSGCXIUSLRGJPMQH3731-95-56L4 0:30:351.2.840.704538.1.72.3.15|1.2 .840.973849.1.13.104.2.7.2.727879_1 [id number] [facility] 2022-12-16 08:58:33 3733-72-28O04:58:33 Problem: Intrapartum process (including labor pain)Goal: Absence of or reduction of complications of laborOutcome: Progressing as expectedGoal: Able to cope with painOutcome: Progressing as expectedGoal: Adequate to move to next level of careOutcome: Progressing as expectedGoal: Reduction in pain sensationOutcome: Progressing as expected 38986-0Nrkx of care ebmkOY7321-47-57O24:58:36Plan of care noteTXT1.2.840.195982.1.13.104.2.7. 2.089317|[id number] for patient soah53763-3ByytXU391730766Rcorpce M Leyva RNUT[address] SqkhF[id number] 9YISQNWPSGPHVGFJMDHBKMY3940-72-94M7 8:58:361.2.840.305797.1.72.3.15|1.2 .840.065380.1.13.104.2.7.2.727879_1 [id number] Debbie Jansen RN [facility] 2022-12-15 23:52:58 6839-71-35K30:52:58 Name/ MRN / Age / Gender:Marla Harmon, [id number] year old female BMI:Estimated body mass index is 39.28 kg/m? as calculated from the following: Height as of this encounter: 1.753 m (5' 9"). Weight as of this encounter: 120.7 kg (266 lb). Allergies:Patient has no known allergies. Last Vitals:BP Readings from Last 1 Encounters: 12/15/22 115/63 Pulse Readings from Last 1 Encounters: 12/15/22 81 SpO2 Readings from Last 1 Encounters: 12/15/22 98% Date of Surgery: 12/15/2022Surgeon: * No surgeons listed *Procedure: CENTRAL NEURAXIAL BLOCKOR Location: [place] [facility] OUT OF OR - OR LOCATIONAnesthesia Preop Eval (physical exam) Anesthesia Preop: Chart Review and Ywzf-ns-CsjqLoinfkbuvm HistoryAnesthesia History NegativePrevious Anesthetics/AirwaysCardiovascular(+ ) Hypertension PulmonaryNegative Pulmonary ROS(-) Asthma Neuro/MusculoskeletalNegative Neuro/Musculosketal ROS(+) Obesity GI/HepaticNegative GI/Hepatic ROS HematologyNegative Hematology ROSComments: HGB (g/dL) Date Value 12/15/2022 11.5 (L) 12/15/22 1629 PLT 290 RenalNegative Renal ROSComments: K (mmol/L) Date Value 06/20/2017 3.9 CREATININE (mg/dL) Date Value 06/20/2017 0.60 Skin(+) Current IV access Endo/Other Negative Endo/Other ROSComments: No results found for: "WBVMNYW9W" Other OB/GYNComments: 21 year old at 39w0d by kendall(14) who presents for sIOL.?sIOL- Denies VB, LOF, Ctx, DFM- SVE: 2 / 25% / -3- [place]: quiescent- Plan: IOL w/ FB and pitocin ?GBS positive- PCN intrapartum ?Hx Trich- positive 05/2022, s/p tx - BOB negative ?Antepartum course reviewed- 1 h 75, sero negative, Rimmune, VZVimmune, B positive/IAT negative, GBS positive, Pap NILM 03/16/20- H/H, plt: 10.1 / 31.0, 253 on 11/23/22- [facility]?Fetus- Presentation on admission: cephalic - anterior placenta - EFW: 3404 g, 47%tile- FHT reactive and reassuring- Normal anatomy scan PediatricPediatric N/A NeonatalNeonatal N/A Preoperative Medication InstructionsContinue taking all prescribed medications except:SONIYA inhibitors, ARBs, diuretics, all oral diabetes medicationsAnticoagulant Therapy: Defer to surgeonsInsulin: Take 1/2 dose the night prior to surgery. Hold on DOS. Phentermine: Alert [facility] anesthesiologistSGLT2 Inhibitors: "gliflozins" to be held for 3 days prior to elective surgeries MAC Cases: Continue taking SONIYA inhibitors and ARBs ASA ClassificationASA: 2 Current Medications:No outpatient medications have been marked as taking for the 12/15/22 encounter (Hospital Encounter). Previous Surgeries: No past surgical history on file.Anesthesia Physical ExamGeneralno apparent distress and alert and oriented x 3 Neuro/Psych Dentalno notable dental hx Abdominal (+) gravid Airway Mallampati score:IITM distance:> 5 cmNeck ROM: fullMouth opening:normal(+) Normal facies Extremity Pulmonarypulmonary exam normal Other Cardiovascularcardiovascular exam normal Anesthesia Plan ASA Status: 2 Plan discussed during pre-op evaluation: General, Epidural, Spinal and CSEAnesthetic plan on DOS: EpiduralAnesthesia plan discussed with: patient or representativePost-Operative Analgesia: routine analgesia & antiemeticsRecovery Plan: LDRAdditional comments: 38292-0Fdavmgquxmfwyj Preoperative evaluation and management yjqgGS1893-33-31G78:46:27Anesthesio logy Preoperative evaluation and management noteTXT1.2.840.918754.1.13.104.2.7. 2.909066|[id number] for patient fink59663-3Iiphkskz operation noteLNAN-ANESTHESIOLOGY ANESTHESIOLOGISTAN-ANESTHESIOLOGY ANESTHESIOLOGIST[address] Ee[id number] 7YURIGFAZIXTOKWVXLZYVBN1160-27-18N9 6:46:271.2.840.201923.1.72.3.15|1.2 .840.084125.1.13.104.2.7.2.727879_1 [id number] AN-ANESTHESIOLOGY ANESTHESIOLOGIST [facility] 2022-12-15 18:49:22 5450-93-38Z64:49:22 Problem: Intrapartum process (including labor pain)Goal: Absence of or reduction of complications of laborOutcome: Progressing as expectedGoal: Able to cope with painOutcome: Progressing as expectedGoal: Adequate to move to next level of careOutcome: Progressing as expectedGoal: Reduction in pain sensationOutcome: Progressing as expected 93877-8Uokx of care kwfkQT6789-85-55M31:49:26Plan of care noteTXT1.2.840.814354.1.13.104.2.7. 2.377655|[id number] for patient [id number] 6ZCCGOOEOQOHZHTMBZIZLWN9562-67-84X7 8:49:261.2.840.558130.1.72.3.15|1.2 .840.828209.1.13.104.2.7.2.727879_1 [id number] [facility] 2022-12-15 15:42:58 2683-62-10L75:42:58 Problem: Intrapartum process (including labor pain)Goal: Absence of or reduction of complications of laborOutcome: Progressing as expectedGoal: Able to cope with painOutcome: Progressing as expectedGoal: Adequate to move to next level of careOutcome: Progressing as expectedGoal: Reduction in pain sensationOutcome: Progressing as expected 95230-0Qtdd of care zkzoFG3413-35-83P82:43:15Plan of care noteTXT1.2.840.884647.1.13.104.2.7. 2.858750|[id number] for patient [id number] 2ERZWNDQHMWPZHYATGQKNXQ8652-59-96G1 5:43:151.2.840.355608.1.72.3.15|1.2 .840.072389.1.13.104.2.7.2.727879_1 [id number] [facility]
--- NOTE | 2023-10-02 18:04 | ER ---
Nurse's Notes [facility] Name: Marla Harmon Age: 22 yrs Sex: Female : 2000 Arrival Date: 10/02/2023 Time: 17:42 Bed DX4 Private MD: Diagnosis: Periapical abscess without sinus Presentation: 10/01 17:58 Chief complaint: Patient states: R lower jaw toot pain for 2 days. + chills, hasn't ll1 taken temp at home. Coronavirus screen: Client denies travel out of the [place] in the last 14 days. At this time, the client does not indicate any symptoms associated with coronavirus-19. Ebola Screen: Patient denies travel to an Ebola-affected area in the 21 days before illness onset. Initial Sepsis Screen: Does the patient meet any 2 criteria? No. Patient's initial sepsis screen is negative. Does the patient have a suspected source of infection? No. Patient's initial sepsis screen is negative. Risk Assessment: Do you want to hurt yourself or someone else? Patient reports no desire to harm self or others. Onset of symptoms was October 01, 2023. 17:58 Method Of Arrival: Ambulatory ll1 17:58 Acuity: NOLBERTO 4 ll1 Triage Assessment: 17:59 General: Appears uncomfortable, Behavior is calm, cooperative, appropriate for age. ll1 Pain: Complains of pain in R lower jaw Quality of pain is described as aching. EENT: Reports pain in right jaw. Neuro: No deficits noted. Cardiovascular: No deficits noted. Respiratory: No deficits noted. Historical: - Allergies: 17:55 NKDA; ll1 - Immunization history:: Adult Immunizations up to date. - Infectious Disease History:: Denies. - Social history:: Smoking status: Patient denies any tobacco usage or history of. Screenin:28 [facility] ED Fall Risk Assessment (Adult) History of falling in the last 3 months, kd3 including since admission No falls in past 3 months (0 pts) Confusion or Disorientation No (0 pts) Intoxicated or Sedated No (0 pts) Impaired Gait No (0 pts) Mobility Assist Device Used No (0 pt) Altered Elimination No (0 pt) Score/Fall Risk Level 0 - 2 = Low Risk Oriented to surroundings. Abuse screen: Denies threats or abuse. Denies injuries from another. Nutritional screening: No deficits noted. Tuberculosis screening: No symptoms or risk factors identified. Assessment: 18:55 Reassessment: Patient is alert, oriented x 3, equal unlabored respirations, skin aa5 warm/dry/pink. 19:28 General: Appears in no apparent distress. Behavior is calm, cooperative. Neuro: Level kd3 of Consciousness is awake, alert, obeys commands, Oriented to person, place, time, situation. Cardiovascular: Patient's skin is warm and dry. Respiratory: Airway is patent Trachea midline Respiratory effort is even, unlabored, Respiratory pattern is regular, symmetrical. Vital Signs: 17:58 BP 143 / 82; Pulse 94; Resp 17; Temp 98.3; Pulse Ox 100% ; Weight 122.47 kg; Height 5 ll1 ft. 9 in. ; Pain 10/10; 19:29 BP 144 / 77; Pulse 88; Resp 17; Pulse Ox 99% on R/A; kd3 17:58 Body Mass Index 39.87 (122.47 kg, 175.26 cm) ll1 17:58 Pain Scale: Adult ll1 ED Course: 17:43 Patient arrived in ED. mg5 17:50 Keisha Munguia [facility]C [facility] kb 17:50 Alec Oden DO is Attending Physician. kb 17:55 Arm band placed on. ll1 17:59 Triage completed. ll1 18:54 No provider procedures requiring assistance completed. Patient did not have IV access aa5 during this emergency room visit. 19:28 Phuong Richmond, RN is Primary Nurse. kd3 19:29 Patient has correct armband on for positive identification. Provided Education on: kd3 medication . Administered Medications: 18:54 Drug: Amoxicillin-Clavulanate PO 875 mg PO once Route: PO; aa5 18:54 Drug: HYDROcodone-acetaminophen PO 5 mg-325 mg 1 tabs PO once Route: PO; aa5 Medication: 19:29 VIS not applicable for this client. kd3 Outcome: 18:03 Discharge ordered by . kb 19:29 Discharged to home ambulatory, kd3 19:29 Condition: stable 19:29 Discharge instructions given to patient, Instructed on discharge instructions, follow up and referral plans. Demonstrated understanding of instructions, follow-up care, medications, Prescriptions given X 1, 19:29 Patient left the ED. kd3 Signatures: Keisha Munguia, DIRECTOR OF CHANNEL MARKETING-C DIRECTOR OF CHANNEL MARKETING-Ckb Gloria Bautista, RN RN aa5 Kunal Carpenter RN RN ll1 Phuong Richmond RN RN kd3 Nel Farias mg5
--- NOTE | 2023-10-02 18:04 | EDPHYS ---
Physician Documentation [facility] Name: Marla Harmon Age: 22 yrs Sex: Female : 2000 Arrival Date: 10/02/2023 Time: 17:42 Bed DX4 Private MD: ED Physician Alec Oden HPI: 10/01 18:01 This 22 yrs old Female presents to ER via Ambulatory with complaints of Toothache. kb 18:01 Pt is a 22 year old female who presents for toothache to right lower jaw that started 2 kb days ago. Denies fever, nausea, vomiting. States she has had pain in this tooth before and needs to have it pulled, but doesn't have the money to do it. . Historical: - Allergies: 17:55 NKDA; ll1 - Immunization history:: Adult Immunizations up to date. - Infectious Disease History:: Denies. - Social history:: Smoking status: Patient denies any tobacco usage or history of. ROS: 18:00 Constitutional: As per HPI kb Exam: 18:00 Constitutional: This is a well developed, well nourished patient who is awake, alert, kb and in no acute distress. Head/Face: Normocephalic, atraumatic. Cardiovascular: Regular rate Respiratory: Respirations even and unlabored. No increased work of breathing. Talking in full sentences Skin: Warm, dry with normal turgor. Normal color. MS/ Extremity: Pulses equal, no cyanosis. Neurovascular intact. Full, normal range of motion. Neuro: Awake and alert, GCS 15, oriented to person, place, time, and situation. Moves all extremities. Normal gait. 18:00 ENT: Dental exam: gum swelling, that is mild, specifically in the lower right second molar (#31), pain, that is moderate, specifically in the lower right second molar (#31), Vital Signs: 17:58 BP 143 / 82; Pulse 94; Resp 17; Temp 98.3; Pulse Ox 100% ; Weight 122.47 kg; Height 5 ll1 ft. 9 in. ; Pain 10/10; 19:29 BP 144 / 77; Pulse 88; Resp 17; Pulse Ox 99% on R/A; kd3 17:58 Body Mass Index 39.87 (122.47 kg, 175.26 cm) ll1 17:58 Pain Scale: Adult ll1 MDM: 17:50 Patient medically screened. kb 18:01 Differential diagnosis: dental caries, gingivitis, dental abscess, pericoronitis. Data kb reviewed: vital signs, nurses notes. Counseling: I had a detailed discussion with the patient and/or guardian regarding the historical points, exam findings, and any diagnostic results supporting the discharge/admit diagnosis, the need for outpatient follow up, a dentist, to return to the emergency department if symptoms worsen or persist or if there are any questions or concerns that arise at home. Administered Medications: 18:54 Drug: Amoxicillin-Clavulanate PO 875 mg PO once Route: PO; aa5 18:54 Drug: HYDROcodone-acetaminophen PO 5 mg-325 mg 1 tabs PO once Route: PO; aa5 Disposition: 21:15 I was immediately available on-site in the Emergency Department for consultation in the ms3 care of the patient. Disposition Summary: 10/02/23 18:03 Discharge Ordered Notes: Location: Home kb Condition: Stable kb Diagnosis - Periapical abscess without sinus kb Followup: kb - With: Emergency Department - When: As needed - Reason: Worsening of condition Followup: kb - With: Private Physician - When: 2 - 3 days - Reason: Recheck today's complaints, Continuance of care, Re-evaluation by your physician Discharge Instructions: - Dental Pain, [id number] kb - Dental Abscess, [id number] kb - Discharge Summary Sheet ll1 Forms: - Medication Reconciliation Form kb - Antibiotic Education kb - Prescription Opioid Use kb - Patient Portal Instructions kb - Leadership Thank You Letter kb - Work release form ll1 Prescriptions: - Augmentin 875-125 mg Oral Tablet - take 1 tablet ORAL route every 12 hours for 10 days; 20 tablet; Refills: 0, kb Product Selection Permitted Signatures: Keisha Munguia, BALAJI GERMAIN-Gloria Henry RN RN aa5 Kunal Carpenter RN RN ll1 Alec Oden DO DO ms3
[2023-10-02] MEDS ORDERED: AMOX/K CLAV 875 MG TAB ONE (18:51)
[2023-10-02] MEDS ORDERED: HYDROCODONE/APAP 5/325 MG TAB ONE (18:52)
[2023-10-02 19:59] VITALS: BP 144/77; TEMP 98.3; O2SAT 99
== END 2023-10-02 19:29 | disposition home or self-care (01) ==
LOC: ER 17:42
DX: K04.7 Periapical abscess without sinus (principal)
CPT/HCPCS: 99283

== ENCOUNTER 2023-10-25 09:53 | Emergency (ER) | payer OTHER ==
--- OUTSIDE RECORDS SUMMARY | 2023-10-25 10:05 | XMS REPORT | Continuity of Care Document ---
Author Name Unknown Address [address] [facility] [address] [place] [address] [facility] Address [address] [facility] [place] [address] Care Team Providers Care Blacksmith Apprentice Name Role Phone LYUDMILA MONTOYA Primary Care Physician UnaSIMONA Ware Attending Clinician UnavailSimona Gresham CNM Attending Clinician Doctor Unassigned, [place] Attending Clinician U navailLYUDMILA Treviño Attending Clinician Unavail able Jan WHLyudmila CALVO Attending Clinician + KARRI DAY Attending Clinician Karri Downs MD Attending Clinician + Abimbola Zimmerman MD Attending Clinician [phone] Winifred Taylor MD Attending Clinician [phone] MARIA G JASSO Attending Clinician Unavailable LUCILLE FOSTER Attending Clinician LUCILLE Rowan Attending Clinician Lizzeth madden 1, [facility] Attending Clinician UnavailParvez Coles DO Attending Clinician [phone] PARVEZ RAMIREZ Attending Clinician Unavailable Ultrasound, Ang-Mfm Attending Clinician UnavailMadeline Rai MD Attending Clinician [phone] MADELINE GARCIA Attending Clinician Unavailable MADELINE GARCIA Attending Clinician Unavailable Lab, Ang-Rmchp Attending Clinician Unavailable Lab, Pea-Rmchp Attending Clinician Unavailable Ivana MSN, Tonya Rivers Attending Clinician [phone] Provider, [facility] Temp Attending Clinician Jessica vailable UNKNOWN, ATTENDING Attending Clinician Unavailab vivek [facility] COORDINATOR, Hellen Cortez Attending Clinician Unava ilable Ho FIELD CONTACT TECHNICIAN, Rachana Cortez Attending Clinician Unava ilable Brodie PAC, K Kacie Attending Clinician [phone] Tye Travis DO Attending Clinician [phone] HELLEN WOODS Attending Clinician Unavailab [place] Chun Attending Clinician Unavailabl Rosalina Butcher DO Attending Clinician [phone] [place] Ramachandran Attending Clinician [phone] KARRI DAY Admitting Clinician Unav luis armando Day MD, Karri Gamboa Admitting Clinician + LUCILLE FOSTER Admitting Clinician Lizzeth madden Payers Payer Name Policy Type Policy Number Effective Date Expirati on Date Source [facility] [id number] 2023 00:00:00 [facility] [id number] 2022 00:00:00 MEDICAID PENDING PENDING 2020 00:00:00 Problems Condition Name Condition Details Condition Category Status Onset Date Resolution Date Last Treatment Date Treating Clinician Comments Source Engages in vaping Engages in vaping Disease Active 2022-04 00:00: 00 [facility] Elevated blood pressure reading without diagnosis of hypertensi on Elevated blood pressure reading without diagnosis of hypertensi on Disease Active 2022-04 00:00: 00 [facility] Anemia, Anemia, Disease Active 2022-04 0 00:00: 00 [facility] 39 weeks gestation of 39 weeks gestation of Disease Active 9-14 00:00: 00 [facility] Obesity (BMI 30-39.9) Obesity (BMI 30-39.9) Disease Active 8-28 00:00: 00 [facility] Irregular uterine contractio ns Irregular uterine contractio ns Disease Active 8-28 00:00: 00 [facility] GBS (group B Streptococ cus carrier), +RV culture, 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 Pending bob [facility] UTI in UTI in Disease Active 1 00:00: 00 Overview: Formattin g of this note might be different from the original. Pending bob [facility] Supervisio n of high-risk Supervisio n of high-risk Disease Active - 00:00: 00 [facility] Multiparit y Multiparit y Disease Active 1-25 00:00: 00 [facility] History of gestationa l hypertensi on History of gestationa l hypertensi on Disease Active 1-25 00:00: 00 [facility] Other general counseling and advice for contracept rianna management Other general counseling and advice for contracept rianna management Disease Active 2-23 00:00: 00 [facility] Lump or mass in breast Lump or mass in breast Disease Active 2-23 00:00: 00 [facility] Declines flu vaccine Declines flu vaccine Disease Active 2019-04 00:00: 00 [facility] Menorrhagi a with regular cycle Menorrhagi a with regular cycle Disease Active 2019-04 00:00: 00 [facility] Class 3 severe obesity with body mass index (BMI) of 40.0 to 44.9 in adult, unspecifie d obesity type, unspecifie d whether serious comorbidit y present Class 3 severe obesity with body mass index (BMI) of 40.0 to 44.9 in adult, unspecifie d obesity type, unspecifie d whether serious comorbidit y present Disease Active 2019-04 00:00: 00 [facility] Breakthrou gh bleeding on Nexplanon Breakthrou gh bleeding on Nexplanon Disease Active 08-29 00:00: 00 [facility] Chlamydia trachomati s infection of lower genitourin kaycee sites Chlamydia trachomati s infection of lower genitourin kaycee sites Disease Active 08-29 00:00: 00 Overview: Formattin g of this note might be different from the original. BOB neg [facility] Nexplanon removal Nexplanon removal Disease Active 07-19 00:00: 00 [facility] Obesity (BMI 30-39.9) Obesity (BMI 30-39.9) Disease Active 07-03 00:00: 00 [facility] Obesity in Obesity in Disease Active 07-03 00:00: 00 [facility] Screen for STD (sexually transmitte d disease) Screen for STD (sexually transmitte d disease) Disease Active 07-03 00:00: 00 [facility] Allergies, Adverse Reactions, Alerts Allergy Name Allergy Type Status Severity Reaction(s) Onset Date Inactive Date Treating Clinician Comments Source NO KNOWN ALLERGIE S Drug Class Active [facility] Social History Social Habit Start Date Stop Date Quantity Comments Source ASSERTION 2022-03-31 00:00:00 [facility] Gender identity [facility] History of Social function 2023-03-08 00:00:00 2023-03-08 00:00:00 [facility] Cigarettes smoked current (pack per day) - Reported 2023-03-08 00:00:00 2023-03-08 00:00:00 [facility] Tobacco Comment 2023-03-08 00:00:00 2023-03-08 00:00:00 Daily vaping [facility] Alcohol intake 2023-03-08 00:00:00 2023-03-08 00:00:00 Current drinker of alcohol (finding) [facility] Tobacco use and exposure 2023-03-08 00:00:00 2023-03-08 00:00:00 User of smokeless tobacco [facility] Alcohol Comment 2023-03-08 00:00:00 2023-03-08 00:00:00 socially [facility] Exposure to SARS-CoV-2 (event) 2022-08-07 00:00:00 2022-08-17 10:24:00 Not sure [facility] History of tobacco use 2016-07-03 00:00:00 2022-04-16 00:00:00 Cigarette Smoker [facility] History SDOH Alcohol Frequency 2020-03-16 00:00:00 2020-03-16 00:00:00 3 [facility] History SDOH Alcohol Std Drinks 2020-03-16 00:00:00 2020-03-16 00:00:00 99 [facility] History SDOH Alcohol Binge 2020-03-16 00:00:00 2020-03-16 00:00:00 99 [facility] Sex Assigned At 2000 00:00:00 2000 00:00:00 [facility] Smoking Status Start Date Stop Date Source Ex-smoker 2023-03-08 00:00:00 [facility]23[facility] 2020-03-16 00:00:00 [facility] Medications Ordered Medication Name Filled Medication Name Start Date Stop Date Current Medication? Ordering Clinician Indication Dosage Frequency Signature (SIG) Comments Components Source etonogestre L (NEXPLANON) implant 68 mg 2022-04 17:30: 00 03-08 17:30 :00 No [id number] 68mg [facility] ibuprofen 600 mg tablet 12-17 00:00: 00 03-08 00:00 :00 No [id number] 600mg Take 1 tablet by mouth every 6 (six) hours as needed (Pain). Take with food or milk. [facility] docusate 100 mg capsule 12-17 00:00: 00 01-07 00:00 :00 No [id number] 200mg Take 2 capsules by mouth once daily as needed for Constipati on. [facility] rho(D) immune globulin (RHOGAM) syringe 300 mcg 12-16 19:33: 55 Yes 300ug 300 mcg, Intramuscu lar, ONCE, For 1 dose, Conditiona l, Routine [facility] ibuprofen (IBU) tablet 600 mg 12-16 19:33: 51 Yes 600mg 600 mg, Oral, Q6HPRN, Starting on Mon12/16/22 at 1433, Until Discontinu ed, Routine, Pain (scale 4-6) [facility] acetaminoph en (TYLENOL) tablet 650 mg 12-16 19:33: 51 Yes 650mg 650 mg, Oral, Q6HPRN, Starting on Mon12/16/22 at 1433, Until Discontinu ed, Routine, Pain (scale 1-3) [facility] diphenhydrA MINE (BENADRYL) tablet 25 mg 12-16 19:33: 51 Yes 25mg 25 mg, Oral, Q6HPRN, Starting on Mon12/16/22 at 1433, Until Discontinu ed, Routine, Sleep, Itching [facility] ondansetron (ZOFRAN (PF)) injection 4 mg 12-16 19:33: 51 Yes 4mg 4 mg, Slow IV Push, Q8HPRN, Starting on Mon12/16/22 at 1433, Until Discontinu ed, Routine, Nausea and Vomiting (N/V) [facility] simethicone (GAS RELIEF (SIMETHICON E)) chewable tablet 160 mg 12-16 19:33: 51 Yes 160mg 160 mg, Oral, PC+HSPRN, Starting on Mon12/16/22 at 1433, Until Discontinu ed, Routine, Gas [facility] docusate (COLACE) capsule 200 mg 12-16 19:33: 51 Yes 200mg 200 mg, Oral, QDAILYPRN, Starting on Mon12/16/22 at 1433, Until Discontinu ed, Routine, Constipati on [facility] magnesium hydroxide (MILK OF MAGNESIA) 400 mg/5 mL suspension 30 mL 12-16 19:33: 51 Yes 30mL 30 mL, Oral, QDAILYPRN, Starting on Mon12/16/22 at 1433, Until Discontinu ed, Routine, Constipati on [facility] benzocaine- menthol (DERMOPLAST ) 20-0.5 % topical spray 12-16 19:33: 51 Yes Topical, PRN, Starting on Mon12/16/22 at 1433, Until Discontinu ed, Routine, Perineum discomfort [facility] miSOPROStoL (CYTOTEC) tablet 1,000 mcg 12-16 16:15: 00 12-16 14:45 :00 No 1000ug 1,000 mcg, Rectal, ONCE, 1 dose, On Mon12/16/22 at 1115, Routine [facility] carboprost (HEMABATE) injection 250 mcg 12-16 14:55: 00 12-16 14:33 :00 No 250ug 250 mcg, Intramuscu lar, ONCE, 1 dose, On Mon12/16/22 at 1000, Routine [facility] methylergon ovine (METHERGINE ) injection 0.2 mg 12-16 14:54: 00 12-16 14:22 :00 No .2mg 0.2 mg, Intramuscu lar, ONCE NOW, 1 dose, On Mon12/16/22 at 1000, Routine [facility] diphenoxyla te-atropine (LOMOTIL) 2.5-0.025 mg tablet 1 tablet 12-16 14:29: 25 Yes 1{tbl} 1 tablet, Oral, Q6HPRN, Starting on Mon12/16/22 at 0929, Until Discontinu ed, Routine, diarrhea [facility] ibuprofen (IBU) tablet 600 mg 12-16 14:09: 58 12-16 19:33 :54 No 600mg 600 mg, Oral, Q6HPRN, Starting on Mon12/16/22 at 0909, Until Mon12/16/22 at 1433, Routine, Pain (scale 1-3) [facility] oxytocin (PITOCIN) 30 units in NS 500 mL IV infusion 12-16 14:09: 48 12-16 19:33 :54 No 300mL/h 300 mL/hr, IV Infusion, SEE-INSTRU CTIONS, Starting on Mon12/16/[address] at 300 mL/hr for 1 hr then 150 mL/hr for 1 hr. For post delivery uterotonic .
[facility] amnioinfusi on IV infusion via GRAVITY 0.9 [...] until the liter is complete.& nbsp;&nbsp ;Notify Hvac Journeyman if uterine resting tone exceeds 25 mmHg at any time during the amnioinfus ion. Obst etrics (GARRETT) Aminoinfus ion Orders
[facility] ondansetron (ZOFRAN (PF)) injection 4 mg 12-16 08:15: 00 12-16 14:01 :00 No 4mg 4 mg, Slow IV Push, ONCE, On Mon12/16/22 at 0315, For 1 dose
Do ses of ondansetro n 16 mg and above need to be administer ed via IV piggyback. For Dose >=24mg ECG monitoring is advisable.
[facility] ropivacaine 0.2 % (NAROPIN (PF)) epidural infusion 12-16 05:52: 00 12-16 16:22 :45 No Epidural, CONTINUOUS PRN, Starting on Mon12/16/22 at 0052, Until Discontinu ed, Routine, Intra-op [facility] lidocaine-e pinephrine (XYLOCAINE W/EPINEPHRI NE) 1.5 %-1:200,000 injection 12-16 05:49: 00 12-16 16:22 :45 No Intraderma l, ONCE INTRA PROCEDURE, Starting on Mon12/16/22 at 0049, Until Discontinu ed, Routine, Intra-op [facility] sodium citrate-cit rickey acid (BICITRA) 500-334 mg/5 mL solution 30 mL 12-16 04:46: 41 12-16 05:26 :00 No 30mL 30 mL, Oral, PRE-PROCED URE ONCE, 1 dose, Starting on Mon12/15/22 at 2346, Until Mon12/16/22 at 0026, Routine, Surgery/Pr ocedure [facility] lactated ringers IV infusion 500 mL 12-16 04:46: 41 12-16 05:11 :19 No 500mL at 999 mL/hr, 500 mL, IV Infusion, PRN - SEE INSTRUCTIO NS, 1 dose, Starting on Mon12/15/22 at 2346, Until Mon12/16/22 at 0011, Routine [facility] oxytocin (PITOCIN) 30 units in NS 500 mL IV infusion 12-15 21:03: 38 12-16 19:33 :54 No 2mU/min at 2-40 mL/hr, IV Infusion, TITRATE, Starting on Mon12/15/22 at 1603, Until Mon12/16/22 at 1433, JERONIMO [facility] D5W-LR IV infusion 1,000 mL 12-15 21:01: 30 12-16 19:33 :54 No 1000mL at 1-125 mL/hr, IV Infusion, TITRATE, Starting on Mon12/15/22 at 1601, Until Mon12/16/22 at 1433, Routine [facility] ascorbic acid, vitamin C, 500 mg tablet 09-26 00:00: 00 01-07 00:00 :00 No [id number] 500mg Take 1 tablet by mouth in the morning and 1 tablet at noon and 1 tablet in the evening. [facility] ferrous sulfate 325 mg (65 mg iron) tablet 09-26 00:00: 00 12-17 00:00 :00 No [id number] 325mg Take 1 tablet by mouth in the morning and 1 tablet in the evening. [facility] metroNIDAZO LE 500 mg tablet 05-10 00:00: 00 05-11 05:59 :00 No [id number] 2000mg Take 4 tablets by mouth once now for 1 dose. [facility] ampicillin 500 mg capsule 05-02 00:00: 00 05-13 05:59 :00 No [id number] 500mg Take 1 capsule by mouth 4 (four) times daily for 10 days. [facility] multivitami n ( VITAMIN) tablet 04-27 00:00: 00 Yes [id number] 1{tbl} Take 1 tablet by mouth in the morning. [facility] multivitami n ( VITAMIN) tablet 04-27 00:00: 00 03-08 00:00 :00 No [id number] 1{tbl} Take 1 tablet by mouth in the morning. [facility] proMETHazin e 25 mg tablet 04-27 00:00: 00 01-07 00:00 :00 No [id number] 25mg Take 1 tablet by mouth every 6 (six) hours as needed for Nausea and Vomiting (N/V). [facility] Nitrofurant oin&Nit. Macrocryst 100 mg capsule 04-17 00:00: 00 11-23 00:00 :00 No TAKE 1 CAPSULE BY MOUTH EVERY 12 HOURS FOR 7 DAYS [facility] No known medications 2021-04 10:28: 59 No No known medication s [facility] doxycycline hyclate 100 mg capsule 2021-04 00:00: 00 02-19 05:59 :00 No [id number] 100mg Take 1 capsule by mouth every 12 (twelve) hours for 7 days. [facility] azithromyci n (ZITHROMAX) 500 mg tablet 2021-04 00:00: 00 02-11 05:59 :00 No [id number] 1000mg Take 2 tablets by mouth once now for 1 dose. [facility] No known medications 07-01 16:12: 46 No [facility] azithromyci n 500 mg tablet 08-31 00:00: 00 05-26 00:00 :00 No TAKE 2 TABLETS BY MOUTH ONCE NOW FOR 1 DOSE [facility] Immunizations Ordered Immunization Name Filled Immunization Name Date Status Comments Source TDAP 2022-10-07 00:00:00 Completed [facility] TDAP 2022-10-07 00:00:00 Completed [facility] TDAP 2022-10-07 00:00:00 Completed [facility] TDAP 2022-10-07 00:00:00 Completed [facility] TDAP 2022-10-07 00:00:00 Completed [facility] TDAP 2022-10-07 00:00:00 Completed [facility] TDAP 2022-10-07 00:00:00 Completed [facility] TDAP 2022-10-07 00:00:00 Completed [facility] TDAP 2022-10-07 00:00:00 Completed [facility] TDAP 2022-10-07 00:00:00 Completed [facility] TDAP 2022-10-07 00:00:00 Completed [facility] TDAP 2022-10-07 00:00:00 Completed [facility] TDAP 2022-10-07 00:00:00 Completed [facility] HPV9 2021-05-26 00:00:00 Completed [facility] HPV9 2021-05-26 00:00:00 Completed [facility] HPV9 2021-05-26 00:00:00 Completed [facility] HPV9 2021-05-26 00:00:00 Completed [facility] HPV9 2021-05-26 00:00:00 Completed [facility] HPV9 2021-05-26 00:00:00 Completed [facility] HPV9 2021-05-26 00:00:00 Completed [facility] HPV9 2021-05-26 00:00:00 Completed [facility] HPV9 2021-05-26 00:00:00 Completed [facility] HPV9 2021-05-26 00:00:00 Completed [facility] HPV9 2021-05-26 00:00:00 Completed [facility] HPV9 2021-05-26 00:00:00 Completed [facility] HPV9 2021-05-26 00:00:00 Completed [facility] HPV9 2021-05-26 00:00:00 Completed [facility] HPV9 2021-05-26 00:00:00 Completed [facility] HPV9 2021-05-26 00:00:00 Completed [facility] HPV9 2021-05-26 00:00:00 Completed [facility] HPV9 2021-05-26 00:00:00 Completed [facility] HPV9 2021-05-26 00:00:00 Completed [facility] HPV9 2021-05-26 00:00:00 Completed [facility] HPV9 2021-05-26 00:00:00 Completed [facility] HPV9 2021-05-26 00:00:00 Completed [facility] HPV9 2021-05-26 00:00:00 Completed [facility] HPV9 2021-05-26 00:00:00 Completed [facility] HPV9 2021-05-26 00:00:00 Completed [facility] HPV9 2021-05-26 00:00:00 Completed [facility] HPV9 2021-05-26 00:00:00 Completed [facility] HPV9 2021-05-26 00:00:00 Completed [facility] HPV9 2021-05-26 00:00:00 Completed [facility] HPV9 2021-05-26 00:00:00 Completed [facility] HPV9 2021-05-26 00:00:00 Completed [facility] HPV9 2021-05-26 00:00:00 Completed [facility] HPV9 2021-05-26 00:00:00 Completed [facility] HPV9 2021-05-26 00:00:00 Completed [facility] HPV9 2021-05-26 00:00:00 Completed [facility] HPV9 2021-05-26 00:00:00 Completed [facility] HPV9 2021-05-26 00:00:00 Completed [facility] HPV9 2021-05-26 00:00:00 Completed [facility] HPV9 2021-05-26 00:00:00 Completed [facility] HPV9 2021-05-26 00:00:00 Completed [facility] HPV9 2021-05-26 00:00:00 Completed [facility] HPV9 2021-05-26 00:00:00 Completed [facility] HPV9 2021-05-26 00:00:00 Completed [facility] HPV9 2021-05-26 00:00:00 Completed [facility] HPV9 2021-05-26 00:00:00 Completed [facility] HPV9 2021-05-26 00:00:00 Completed [facility] HPV9 2021-05-26 00:00:00 Completed [facility] HPV9 2021-05-26 00:00:00 Completed [facility] HPV9 2021-05-26 00:00:00 Completed [facility] HPV9 2021-05-26 00:00:00 Completed [facility] HPV9 2021-05-26 00:00:00 Completed [facility] HPV9 2021-05-26 00:00:00 Completed [facility] HPV9 2021-05-26 00:00:00 Completed [facility] HPV9 2021-05-26 00:00:00 Completed [facility] HPV9 2021-05-26 00:00:00 Completed [facility] HPV9 2021-05-26 00:00:00 Completed [facility] HPV9 2021-05-26 00:00:00 Completed [facility] HPV9 2021-05-26 00:00:00 Completed [facility] HPV9 2021-05-26 00:00:00 Completed [facility] HPV9 2021-05-26 00:00:00 Completed [facility] HPV9 2021-05-26 00:00:00 Completed [facility] HPV9 2021-05-26 00:00:00 Completed [facility] HPV9 2021-05-26 00:00:00 Completed [facility] HPV9 2021-05-26 00:00:00 Completed [facility] HPV9 2021-05-26 00:00:00 Completed [facility] HPV9 2021-05-26 00:00:00 Completed [facility] HPV9 2021-05-26 00:00:00 Completed [facility] HPV9 2021-05-26 00:00:00 Completed [facility] Influenza Virus Vaccine Quad .5 mL IM 6+ MO 2020-03-16 00:00:00 Completed [facility] Influenza Virus Vaccine Quad .5 mL IM 6+ MO 2020-03-16 00:00:00 Completed [facility] Influenza Virus Vaccine Quad .5 mL IM 6+ MO 2020-03-16 00:00:00 Completed [facility] Influenza Virus Vaccine Quad .5 mL IM 6+ MO 2020-03-16 00:00:00 Completed [facility] Influenza Virus Vaccine Quad .5 mL IM 6+ MO 2020-03-16 00:00:00 Completed [facility] Influenza Virus Vaccine Quad .5 mL IM 6+ MO 2020-03-16 00:00:00 Completed [facility] Influenza Virus Vaccine Quad .5 mL IM 6+ MO 2020-03-16 00:00:00 Completed [facility] Influenza Virus Vaccine Quad .5 mL IM 6+ MO 2020-03-16 00:00:00 Completed [facility] Influenza Virus Vaccine Quad .5 mL IM 6+ MO 2020-03-16 00:00:00 Completed [facility] Influenza Virus Vaccine Quad .5 mL IM 6+ MO 2020-03-16 00:00:00 Completed [facility] Influenza Virus Vaccine Quad .5 mL IM 6+ MO 2020-03-16 00:00:00 Completed [facility] Influenza Virus Vaccine Quad .5 mL IM 6+ MO 2020-03-16 00:00:00 Completed [facility] Influenza Virus Vaccine Quad .5 mL IM 6+ MO 2020-03-16 00:00:00 Completed [facility] Influenza Virus Vaccine Quad .5 mL IM 6+ MO 2020-03-16 00:00:00 Completed [facility] Influenza Virus Vaccine Quad .5 mL IM 6+ MO 2020-03-16 00:00:00 Completed [facility] Influenza Virus Vaccine Quad .5 mL IM 6+ MO 2020-03-16 00:00:00 Completed [facility] Influenza Virus Vaccine Quad .5 mL IM 6+ MO 2020-03-16 00:00:00 Completed [facility] Influenza Virus Vaccine Quad .5 mL IM 6+ MO 2020-03-16 00:00:00 Completed [facility] Influenza Virus Vaccine Quad .5 mL IM 6+ MO 2020-03-16 00:00:00 Completed [facility] Influenza Virus Vaccine Quad .5 mL IM 6+ MO 2020-03-16 00:00:00 Completed [facility] Influenza Virus Vaccine Quad .5 mL IM 6+ MO 2020-03-16 00:00:00 Completed [facility] Influenza Virus Vaccine Quad .5 mL IM 6+ MO (FLUZONE/FLULAVAL/FL UARIX) 2020-03-16 00:00:00 Completed [facility] Influenza Virus Vaccine Quad .5 mL IM 6+ MO (FLUZONE/FLULAVAL/FL UARIX) 2020-03-16 00:00:00 Completed [facility] Influenza Virus Vaccine Quad .5 mL IM 6+ MO (FLUZONE/FLULAVAL/FL UARIX) 2020-03-16 00:00:00 Completed [facility] Influenza Virus Vaccine Quad .5 mL IM 6+ MO (FLUZONE/FLULAVAL/FL UARIX) 2020-03-16 00:00:00 Completed [facility] Influenza Virus Vaccine Quad .5 mL IM 6+ MO (FLUZONE/FLULAVAL/FL UARIX) 2020-03-16 00:00:00 Completed [facility] Influenza Virus Vaccine Quad .5 mL IM 6+ MO (FLUZONE/FLULAVAL/FL UARIX) 2020-03-16 00:00:00 Completed [facility] Influenza Virus Vaccine Quad .5 mL IM 6+ MO 2020-03-16 00:00:00 Completed [facility] Influenza Virus Vaccine Quad .5 mL IM 6+ MO 2020-03-16 00:00:00 Completed [facility] Influenza Virus Vaccine Quad .5 mL IM 6+ MO 2020-03-16 00:00:00 Completed [facility] Influenza Virus Vaccine Quad .5 mL IM 6+ MO 2020-03-16 00:00:00 Completed [facility] Influenza Virus Vaccine Quad .5 mL IM 6+ MO 2020-03-16 00:00:00 Completed [facility] Influenza Virus Vaccine Quad .5 mL IM 6+ MO 2020-03-16 00:00:00 Completed [facility] Influenza Virus Vaccine Quad .5 mL IM 6+ MO 2020-03-16 00:00:00 Completed [facility] Influenza Virus Vaccine Quad .5 mL IM 6+ MO 2020-03-16 00:00:00 Completed [facility] Influenza Virus Vaccine Quad .5 mL IM 6+ MO 2020-03-16 00:00:00 Completed [facility] Influenza Virus Vaccine Quad .5 mL IM 6+ MO 2020-03-16 00:00:00 Completed [facility] Influenza Virus Vaccine Quad .5 mL IM 6+ MO 2020-03-16 00:00:00 Completed [facility] Influenza Virus Vaccine Quad .5 mL IM 6+ MO 2020-03-16 00:00:00 Completed [facility] Influenza Virus Vaccine Quad .5 mL IM 6+ MO 2020-03-16 00:00:00 Completed [facility] Influenza Virus Vaccine Quad .5 mL IM 6+ MO 2020-03-16 00:00:00 Completed [facility] Influenza Virus Vaccine Quad .5 mL IM 6+ MO 2020-03-16 00:00:00 Completed [facility] Influenza Virus Vaccine Quad .5 mL IM 6+ MO 2020-03-16 00:00:00 Completed [facility] Influenza Virus Vaccine Quad .5 mL IM 6+ MO 2020-03-16 00:00:00 Completed [facility] Influenza Virus Vaccine Quad .5 mL IM 6+ MO 2020-03-16 00:00:00 Completed [facility] Influenza Virus Vaccine Quad .5 mL IM 6+ MO 2020-03-16 00:00:00 Completed [facility] Influenza Virus Vaccine Quad .5 mL IM 6+ MO 2020-03-16 00:00:00 Completed [facility] Influenza Virus Vaccine Quad .5 mL IM 6+ MO 2020-03-16 00:00:00 Completed [facility] Influenza Virus Vaccine Quad .5 mL IM 6+ MO 2020-03-16 00:00:00 Completed [facility] Influenza Virus Vaccine Quad .5 mL IM 6+ MO 2020-03-16 00:00:00 Completed [facility] Influenza Virus Vaccine Quad .5 mL IM 6+ MO 2020-03-16 00:00:00 Completed [facility] Influenza Virus Vaccine Quad .5 mL IM 6+ MO 2020-03-16 00:00:00 Completed [facility] Influenza Virus Vaccine Quad .5 mL IM 6+ MO 2020-03-16 00:00:00 Completed [facility] Influenza Virus Vaccine Quad .5 mL IM 6+ MO 2020-03-16 00:00:00 Completed [facility] Influenza Virus Vaccine Quad .5 mL IM 6+ MO 2020-03-16 00:00:00 Completed [facility] Influenza Virus Vaccine Quad .5 mL IM 6+ MO 2020-03-16 00:00:00 Completed [facility] Influenza Virus Vaccine Quad .5 mL IM 6+ MO 2020-03-16 00:00:00 Completed [facility] Influenza Virus Vaccine Quad .5 mL IM 6+ MO 2020-03-16 00:00:00 Completed [facility] Influenza Virus Vaccine Quad .5 mL IM 6+ MO 2020-03-16 00:00:00 Completed [facility] Influenza Virus Vaccine Quad .5 mL IM 6+ MO 2020-03-16 00:00:00 Completed [facility] Influenza Virus Vaccine Quad .5 mL IM 6+ MO 2020-03-16 00:00:00 Completed [facility] Influenza Virus Vaccine Quad .5 mL IM 6+ MO 2020-03-16 00:00:00 Completed [facility] Influenza Virus Vaccine Quad .5 mL IM 6+ MO 2020-03-16 00:00:00 Completed [facility] Influenza Virus Vaccine Quad .5 mL IM 6+ MO 2020-03-16 00:00:00 Completed [facility] Influenza Virus Vaccine Quad .5 mL IM 6+ MO 2020-03-16 00:00:00 Completed [facility] Influenza Virus Vaccine Quad .5 mL IM 6+ MO 2020-03-16 00:00:00 Completed [facility] Influenza Virus Vaccine Quad .5 mL IM 6+ MO 2020-03-16 00:00:00 Completed [facility] Influenza Virus Vaccine Quad .5 mL IM 6+ MO 2020-03-16 00:00:00 Completed [facility] HPV9 2018-09-07 00:00:00 Completed [facility] HPV9 2018-09-07 00:00:00 Completed [facility] HPV9 2018-09-07 00:00:00 Completed [facility] HPV9 2018-09-07 00:00:00 Completed [facility] HPV9 2018-09-07 00:00:00 Completed [facility] HPV9 2018-09-07 00:00:00 Completed [facility] HPV9 2018-09-07 00:00:00 Completed [facility] HPV9 2018-09-07 00:00:00 Completed [facility] HPV9 2018-09-07 00:00:00 Completed [facility] HPV9 2018-09-07 00:00:00 Completed [facility] HPV9 2018-09-07 00:00:00 Completed [facility] HPV9 2018-09-07 00:00:00 Completed [facility] HPV9 2018-09-07 00:00:00 Completed [facility] HPV9 2018-09-07 00:00:00 Completed [facility] HPV9 2018-09-07 00:00:00 Completed [facility] HPV9 2018-09-07 00:00:00 Completed [facility] HPV9 2018-09-07 00:00:00 Completed [facility] HPV9 2018-09-07 00:00:00 Completed [facility] HPV9 2018-09-07 00:00:00 Completed [facility] HPV9 2018-09-07 00:00:00 Completed [facility] HPV9 2018-09-07 00:00:00 Completed [facility] HPV9 2018-09-07 00:00:00 Completed [facility] HPV9 2018-09-07 00:00:00 Completed [facility] HPV9 2018-09-07 00:00:00 Completed [facility] HPV9 2018-09-07 00:00:00 Completed [facility] HPV9 2018-09-07 00:00:00 Completed [facility] HPV9 2018-09-07 00:00:00 Completed [facility] HPV9 2018-09-07 00:00:00 Completed [facility] HPV9 2018-09-07 00:00:00 Completed [facility] HPV9 2018-09-07 00:00:00 Completed [facility] HPV9 2018-09-07 00:00:00 Completed [facility] HPV9 2018-09-07 00:00:00 Completed [facility] HPV9 2018-09-07 00:00:00 [facility] HPV9 2018-09-07 00:00:00 Completed [facility] HPV9 2018-09-07 00:00:00 Completed [facility] HPV9 2018-09-07 00:00:00 Completed [facility] HPV9 2018-09-07 00:00:00 Completed [facility] HPV9 2018-09-07 00:00:00 Completed [facility] HPV9 2018-09-07 00:00:00 Completed [facility] HPV9 2018-09-07 00:00:00 Completed [facility] HPV9 2018-09-07 00:00:00 Completed [facility] HPV9 2018-09-07 00:00:00 Completed [facility] HPV9 2018-09-07 00:00:00 Completed [facility] HPV9 2018-09-07 00:00:00 Completed [facility] HPV9 2018-09-07 00:00:00 Completed [facility] HPV9 2018-09-07 00:00:00 Completed [facility] HPV9 2018-09-07 00:00:00 Completed [facility] HPV9 2018-09-07 00:00:00 Completed [facility] HPV9 2018-09-07 00:00:00 Completed [facility] HPV9 2018-09-07 00:00:00 Completed [facility] HPV9 2018-09-07 00:00:00 Completed [facility] HPV9 2018-09-07 00:00:00 [facility] HPV9 2018-07-03 00:00:00 Completed [facility] HPV9 2018-07-03 00:00:00 Completed [facility] HPV9 2018-07-03 00:00:00 Completed [facility] HPV9 2018-07-03 00:00:00 Completed [facility] HPV9 2018-07-03 00:00:00 Completed [facility] HPV9 2018-07-03 00:00:00 Completed [facility] HPV9 2018-07-03 00:00:00 Completed [facility] HPV9 2018-07-03 00:00:00 Completed [facility] HPV9 2018-07-03 00:00:00 Completed [facility] HPV9 2018-07-03 00:00:00 Completed [facility] HPV9 2018-07-03 00:00:00 Completed [facility] HPV9 2018-07-03 00:00:00 Completed [facility] HPV9 2018-07-03 00:00:00 Completed [facility] HPV9 2018-07-03 00:00:00 Completed [facility] HPV9 2018-07-03 00:00:00 Completed [facility] HPV9 2018-07-03 00:00:00 Completed [facility] HPV9 2018-07-03 00:00:00 Completed [facility] HPV9 2018-07-03 00:00:00 Completed [facility] HPV9 2018-07-03 00:00:00 Completed [facility] HPV9 2018-07-03 00:00:00 [facility] HPV9 2018-07-03 00:00:00 Completed [facility] HPV9 2018-07-03 00:00:00 Completed [facility] HPV9 2018-07-03 00:00:00 Completed [facility] HPV9 2018-07-03 00:00:00 Completed [facility] HPV9 2018-07-03 00:00:00 Completed [facility] HPV9 2018-07-03 00:00:00 Completed [facility] HPV9 2018-07-03 00:00:00 Completed [facility] HPV9 2018-07-03 00:00:00 Completed [facility] HPV9 2018-07-03 00:00:00 Completed [facility] HPV9 2018-07-03 00:00:00 Completed [facility] HPV9 2018-07-03 00:00:00 Completed [facility] HPV9 2018-07-03 00:00:00 Completed [facility] HPV9 2018-07-03 00:00:00 Completed [facility] HPV9 2018-07-03 00:00:00 Completed [facility] HPV9 2018-07-03 00:00:00 Completed [facility] HPV9 2018-07-03 00:00:00 Completed [facility] HPV9 2018-07-03 00:00:00 Completed [facility] HPV9 2018-07-03 00:00:00 Completed [facility] HPV9 2018-07-03 00:00:00 Completed [facility] HPV9 2018-07-03 00:00:00 Completed [facility] HPV9 2018-07-03 00:00:00 Completed [facility] HPV9 2018-07-03 00:00:00 Completed [facility] HPV9 2018-07-03 00:00:00 Completed [facility] HPV9 2018-07-03 00:00:00 Completed [facility] HPV9 2018-07-03 00:00:00 Completed [facility] HPV9 2018-07-03 00:00:00 Completed [facility] HPV9 2018-07-03 00:00:00 Completed [facility] HPV9 2018-07-03 00:00:00 Completed [facility] HPV9 2018-07-03 00:00:00 Completed [facility] HPV9 2018-07-03 00:00:00 Completed [facility] HPV9 2018-07-03 00:00:00 Completed [facility] HPV9 2018-07-03 00:00:00 Completed [facility] HPV9 2018-07-03 00:00:00 Completed [facility] HPV9 2018-07-03 00:00:00 Completed [facility] HPV9 2018-07-03 00:00:00 Completed [facility] HPV9 2018-07-03 00:00:00 Completed [facility] HPV9 2018-07-03 00:00:00 Completed [facility] Influenza Virus Vaccine Quad .5 mL IM 6+ MO 2017-01-01 00:00:00 Completed [facility] Influenza Virus Vaccine Quad .5 mL IM 6+ MO 2017-01-01 00:00:00 Completed [facility] Influenza Virus Vaccine Quad .5 mL IM 6+ MO 2017-01-01 00:00:00 Completed [facility] Influenza Virus Vaccine Quad .5 mL IM 6+ MO 2017-01-01 00:00:00 Completed [facility] Influenza Virus Vaccine Quad .5 mL IM 6+ MO 2017-01-01 00:00:00 Completed [facility] Influenza Virus Vaccine Quad .5 mL IM 6+ MO 2017-01-01 00:00:00 Completed [facility] Influenza Virus Vaccine Quad .5 mL IM 6+ MO 2017-01-01 00:00:00 Completed [facility] Influenza Virus Vaccine Quad .5 mL IM 6+ MO (FLUZONE/FLULAVAL/FL UARIX) 2017-01-01 00:00:00 Completed [facility] Influenza Virus Vaccine Quad .5 mL IM 6+ MO (FLUZONE/FLULAVAL/FL UARIX) 2017-01-01 00:00:00 Completed [facility] Influenza Virus Vaccine Quad .5 mL IM 6+ MO (FLUZONE/FLULAVAL/FL UARIX) 2017-01-01 00:00:00 Completed [facility] Influenza Virus Vaccine Quad .5 mL IM 6+ MO (FLUZONE/FLULAVAL/FL UARIX) 2017-01-01 00:00:00 Completed [facility] Influenza Virus Vaccine Quad .5 mL IM 6+ MO (FLUZONE/FLULAVAL/FL UARIX) 2017-01-01 00:00:00 Completed [facility] Influenza Virus Vaccine Quad .5 mL IM 6+ MO (FLUZONE/FLULAVAL/FL UARIX) 2017-01-01 00:00:00 Completed [facility] HEPATITIS A 2011-11-30 00:00:00 Completed [facility] HPV 2011-11-30 00:00:00 Completed [facility] Meningococcal Polysaccharide (groups A, C, Y and W-135) conjugate vaccine (MCV4P) 2011-11-30 00:00:00 Completed [facility] TDAP 2011-11-30 00:00:00 Completed [facility] Varicella (varivax)(chicken pox) 2011-11-30 00:00:00 Completed [facility] HEPATITIS A 2011-11-30 00:00:00 Completed [facility] HPV 2011-11-30 00:00:00 Completed [facility] Meningococcal Polysaccharide (groups A, C, Y and W-135) conjugate vaccine (MCV4P) 2011-11-30 00:00:00 Completed [facility] TDAP 2011-11-30 00:00:00 Completed [facility] Varicella (varivax)(chicken pox) 2011-11-30 00:00:00 Completed [facility] HEPATITIS A 2011-11-30 00:00:00 Completed [facility] HPV 2011-11-30 00:00:00 Completed [facility] Meningococcal Polysaccharide (groups A, C, Y and W-135) conjugate vaccine (MCV4P) 2011-11-30 00:00:00 Completed [facility] TDAP 2011-11-30 00:00:00 Completed [facility] Varicella (varivax)(chicken pox) 2011-11-30 00:00:00 Completed [facility] HEPATITIS A 2011-11-30 00:00:00 Completed [facility] HPV 2011-11-30 00:00:00 Completed [facility] Meningococcal Polysaccharide (groups A, C, Y and W-135) conjugate vaccine (MCV4P) 2011-11-30 00:00:00 Completed [facility] TDAP 2011-11-30 00:00:00 Completed [facility] Varicella (varivax)(chicken pox) 2011-11-30 00:00:00 Completed [facility] HEPATITIS A 2011-11-30 00:00:00 Completed [facility] HPV 2011-11-30 00:00:00 Completed [facility] Meningococcal Polysaccharide (groups A, C, Y and W-135) conjugate vaccine (MCV4P) 2011-11-30 00:00:00 Completed [facility] TDAP 2011-11-30 00:00:00 Completed [facility] Varicella (varivax)(chicken pox) 2011-11-30 00:00:00 Completed [facility] HEPATITIS A 2011-11-30 00:00:00 Completed [facility] HPV 2011-11-30 00:00:00 Completed [facility] Meningococcal Polysaccharide (groups A, C, Y and W-135) conjugate vaccine (MCV4P) 2011-11-30 00:00:00 Completed [facility] TDAP 2011-11-30 00:00:00 Completed [facility] Varicella (varivax)(chicken pox) 2011-11-30 00:00:00 Completed [facility] HEPATITIS A 2011-11-30 00:00:00 Completed [facility] HPV 2011-11-30 00:00:00 Completed [facility] Meningococcal Polysaccharide (groups A, C, Y and W-135) conjugate vaccine (MCV4P) 2011-11-30 00:00:00 Completed [facility] TDAP 2011-11-30 00:00:00 Completed [facility] Varicella (varivax)(chicken pox) 2011-11-30 00:00:00 Completed [facility] HEPATITIS A 2011-11-30 00:00:00 Completed [facility] HPV 2011-11-30 00:00:00 Completed [facility] Meningococcal Polysaccharide (groups A, C, Y and W-135) conjugate vaccine (MCV4P) 2011-11-30 00:00:00 Completed [facility] TDAP 2011-11-30 00:00:00 Completed [facility] Varicella (varivax)(chicken pox) 2011-11-30 00:00:00 Completed [facility] HEPATITIS A 2011-11-30 00:00:00 Completed [facility] HPV 2011-11-30 00:00:00 Completed [facility] Meningococcal Polysaccharide (groups A, C, Y and W-135) conjugate vaccine (MCV4P) 2011-11-30 00:00:00 Completed [facility] TDAP 2011-11-30 00:00:00 Completed [facility] Varicella (varivax)(chicken pox) 2011-11-30 00:00:00 Completed [facility] HEPATITIS A 2011-11-30 00:00:00 Completed [facility] HPV 2011-11-30 00:00:00 Completed [facility] Meningococcal Polysaccharide (groups A, C, Y and W-135) conjugate vaccine (MCV4P) 2011-11-30 00:00:00 Completed [facility] TDAP 2011-11-30 00:00:00 Completed [facility] Varicella (varivax)(chicken pox) 2011-11-30 00:00:00 Completed [facility] HEPATITIS A 2011-11-30 00:00:00 Completed [facility] HPV 2011-11-30 00:00:00 Completed [facility] Meningococcal Polysaccharide (groups A, C, Y and W-135) conjugate vaccine (MCV4P) 2011-11-30 00:00:00 Completed [facility] TDAP 2011-11-30 00:00:00 Completed [facility] Varicella (varivax)(chicken pox) 2011-11-30 00:00:00 Completed [facility] HEPATITIS A 2011-11-30 00:00:00 Completed [facility] HPV 2011-11-30 00:00:00 Completed [facility] Meningococcal Polysaccharide (groups A, C, Y and W-135) conjugate vaccine (MCV4P) 2011-11-30 00:00:00 Completed [facility] TDAP 2011-11-30 00:00:00 Completed [facility] Varicella (varivax)(chicken pox) 2011-11-30 00:00:00 Completed [facility] HEPATITIS A 2011-11-30 00:00:00 Completed [facility] HPV 2011-11-30 00:00:00 Completed [facility] Meningococcal Polysaccharide (groups A, C, Y and W-135) conjugate vaccine (MCV4P) 2011-11-30 00:00:00 Completed [facility] TDAP 2011-11-30 00:00:00 Completed [facility] Varicella (varivax)(chicken pox) 2011-11-30 00:00:00 Completed [facility] DTaP, Unspecified Formulation 2003-03-18 00:00:00 Completed [facility] MMR 2003-03-18 00:00:00 Completed [facility] IPV 2003-03-18 00:00:00 Completed [facility] DTaP, Unspecified Formulation 2003-03-18 00:00:00 Completed [facility] MMR 2003-03-18 00:00:00 Completed [facility] IPV 2003-03-18 00:00:00 Completed [facility] DTaP, Unspecified Formulation 2003-03-18 00:00:00 Completed [facility] MMR 2003-03-18 00:00:00 Completed [facility] IPV 2003-03-18 00:00:00 Completed [facility] DTaP, Unspecified Formulation 2003-03-18 00:00:00 Completed [facility] MMR 2003-03-18 00:00:00 Completed [facility] IPV 2003-03-18 00:00:00 Completed [facility] DTaP, Unspecified Formulation 2003-03-18 00:00:00 Completed [facility] MMR 2003-03-18 00:00:00 Completed [facility] IPV 2003-03-18 00:00:00 Completed [facility] DTaP, Unspecified Formulation 2003-03-18 00:00:00 Completed [facility] MMR 2003-03-18 00:00:00 Completed [facility] IPV 2003-03-18 00:00:00 Completed [facility] DTaP, Unspecified Formulation 2003-03-18 00:00:00 Completed [facility] MMR 2003-03-18 00:00:00 Completed [facility] IPV 2003-03-18 00:00:00 Completed [facility] DTaP, Unspecified Formulation 2003-03-18 00:00:00 Completed [facility] MMR 2003-03-18 00:00:00 Completed [facility] IPV 2003-03-18 00:00:00 Completed [facility] DTaP, Unspecified Formulation 2003-03-18 00:00:00 Completed [facility] MMR 2003-03-18 00:00:00 Completed [facility] IPV 2003-03-18 00:00:00 Completed [facility] DTaP, Unspecified Formulation 2003-03-18 00:00:00 Completed [facility] MMR 2003-03-18 00:00:00 Completed [facility] IPV 2003-03-18 00:00:00 Completed [facility] DTaP, Unspecified Formulation 2003-03-18 00:00:00 Completed [facility] MMR 2003-03-18 00:00:00 Completed [facility] IPV 2003-03-18 00:00:00 Completed [facility] DTaP, Unspecified Formulation 2003-03-18 00:00:00 Completed [facility] MMR 2003-03-18 00:00:00 Completed [facility] IPV 2003-03-18 00:00:00 Completed [facility] DTaP, Unspecified Formulation 2003-03-18 00:00:00 Completed [facility] MMR 2003-03-18 00:00:00 Completed [facility] IPV 2003-03-18 00:00:00 Completed [facility] DTaP, Unspecified Formulation 2001-01-01 00:00:00 Completed [facility] DTaP, Unspecified Formulation 2001-01-01 00:00:00 Completed [facility] DTaP, Unspecified Formulation 2001-01-01 00:00:00 Completed [facility] DTaP, Unspecified Formulation 2001-01-01 00:00:00 Completed [facility] DTaP, Unspecified Formulation 2001-01-01 00:00:00 Completed [facility] DTaP, Unspecified Formulation 2001-01-01 00:00:00 Completed [facility] DTaP, Unspecified Formulation 2001-01-01 00:00:00 Completed [facility] DTaP, Unspecified Formulation 2001-01-01 00:00:00 Completed [facility] DTaP, Unspecified Formulation 2001-01-01 00:00:00 Completed [facility] DTaP, Unspecified Formulation 2001-01-01 00:00:00 Completed [facility] DTaP, Unspecified Formulation 2001-01-01 00:00:00 Completed [facility] DTaP, Unspecified Formulation 2001-01-01 00:00:00 Completed [facility] DTaP, Unspecified Formulation 2001-01-01 00:00:00 Completed [facility] Hib-HbOC 2000-05-18 00:00:00 Completed [facility] MMR 2000-05-18 00:00:00 Completed [facility] Hib-HbOC 2000-05-18 00:00:00 Completed [facility] MMR 2000-05-18 00:00:00 Completed [facility] Hib-HbOC 2000-05-18 00:00:00 Completed [facility] MMR 2000-05-18 00:00:00 Completed [facility] Hib-HbOC 2000-05-18 00:00:00 Completed [facility] MMR 2000-05-18 00:00:00 Completed [facility] Hib-HbOC 2000-05-18 00:00:00 Completed [facility] MMR 2000-05-18 00:00:00 Completed [facility] Hib-HbOC 2000-05-18 00:00:00 Completed [facility] MMR 2000-05-18 00:00:00 Completed [facility] Hib-HbOC 2000-05-18 00:00:00 Completed [facility] MMR 2000-05-18 00:00:00 Completed [facility] Hib-HbOC 2000-05-18 00:00:00 Completed [facility] MMR 2000-05-18 00:00:00 Completed [facility] Hib-HbOC 2000-05-18 00:00:00 Completed [facility] MMR 2000-05-18 00:00:00 Completed [facility] Hib-HbOC 2000-05-18 00:00:00 Completed [facility] MMR 2000-05-18 00:00:00 Completed [facility] Hib-HbOC 2000-05-18 00:00:00 Completed [facility] MMR 2000-05-18 00:00:00 Completed [facility] Hib-HbOC 2000-05-18 00:00:00 Completed [facility] MMR 2000-05-18 00:00:00 Completed [facility] Hib-HbOC 2000-05-18 00:00:00 Completed [facility] MMR 2000-05-18 00:00:00 Completed [facility] Hep B, Adol or Pedi Dosage 1999-12-22 00:00:00 Completed [facility] IPV 1999-12-22 00:00:00 Completed [facility] Varicella (varivax)(chicken pox) 1999-12-22 00:00:00 Completed [facility] Hep B, Adol or Pedi Dosage 1999-12-22 00:00:00 Completed [facility] IPV 1999-12-22 00:00:00 Completed [facility] Varicella (varivax)(chicken pox) 1999-12-22 00:00:00 Completed [facility] Hep B, Adol or Pedi Dosage 1999-12-22 00:00:00 Completed [facility] IPV 1999-12-22 00:00:00 Completed [facility] Varicella (varivax)(chicken pox) 1999-12-22 00:00:00 Completed [facility] Hep B, Adol or Pedi Dosage 1999-12-22 00:00:00 Completed [facility] IPV 1999-12-22 00:00:00 Completed [facility] Varicella (varivax)(chicken pox) 1999-12-22 00:00:00 Completed [facility] Hep B, Adol or Pedi Dosage 1999-12-22 00:00:00 Completed [facility] IPV 1999-12-22 00:00:00 Completed [facility] Varicella (varivax)(chicken pox) 1999-12-22 00:00:00 Completed [facility] Hep B, Adol or Pedi Dosage 1999-12-22 00:00:00 Completed [facility] IPV 1999-12-22 00:00:00 Completed [facility] Varicella (varivax)(chicken pox) 1999-12-22 00:00:00 Completed [facility] Hep B, Adol or Pedi Dosage 1999-12-22 00:00:00 Completed [facility] IPV 1999-12-22 00:00:00 Completed [facility] Varicella (varivax)(chicken pox) 1999-12-22 00:00:00 Completed [facility] Hep B, Adol or Pedi Dosage 1999-12-22 00:00:00 Completed [facility] IPV 1999-12-22 00:00:00 Completed [facility] Varicella (varivax)(chicken pox) 1999-12-22 00:00:00 Completed [facility] Hep B, Adol or Pedi Dosage 1999-12-22 00:00:00 Completed [facility] IPV 1999-12-22 00:00:00 Completed [facility] Varicella (varivax)(chicken pox) 1999-12-22 00:00:00 Completed [facility] Hep B, Adol or Pedi Dosage 1999-12-22 00:00:00 Completed [facility] IPV 1999-12-22 00:00:00 Completed [facility] Varicella (varivax)(chicken pox) 1999-12-22 00:00:00 Completed [facility] Hep B, Adol or Pedi Dosage 1999-12-22 00:00:00 Completed [facility] IPV 1999-12-22 00:00:00 Completed [facility] Varicella (varivax)(chicken pox) 1999-12-22 00:00:00 Completed [facility] Hep B, Adol or Pedi Dosage 1999-12-22 00:00:00 Completed [facility] IPV 1999-12-22 00:00:00 Completed [facility] Varicella (varivax)(chicken pox) 1999-12-22 00:00:00 Completed [facility] Hep B, Adol or Pedi Dosage 1999-12-22 00:00:00 Completed [facility] IPV 1999-12-22 00:00:00 Completed [facility] Varicella (varivax)(chicken pox) 1999-12-22 00:00:00 Completed [facility] Hep B, Adol or Pedi Dosage 1999-09-21 00:00:00 Completed [facility] Hep B, Adol or Pedi Dosage 1999-09-21 00:00:00 Completed [facility] Hep B, Adol or Pedi Dosage 1999-09-21 00:00:00 Completed [facility] Hep B, Adol or Pedi Dosage 1999-09-21 00:00:00 Completed [facility] Hep B, Adol or Pedi Dosage 1999-09-21 00:00:00 Completed [facility] Hep B, Adol or Pedi Dosage 1999-09-21 00:00:00 Completed [facility] Hep B, Adol or Pedi Dosage 1999-09-21 00:00:00 Completed [facility] Hep B, Adol or Pedi Dosage 1999-09-21 00:00:00 Completed [facility] Hep B, Adol or Pedi Dosage 1999-09-21 00:00:00 Completed [facility] Hep B, Adol or Pedi Dosage 1999-09-21 00:00:00 Completed [facility] Hep B, Adol or Pedi Dosage 1999-09-21 00:00:00 Completed [facility] Hep B, Adol or Pedi Dosage 1999-09-21 00:00:00 Completed [facility] Hep B, Adol or Pedi Dosage 1999-09-21 00:00:00 Completed [facility] DTaP, Unspecified Formulation 1999-06-24 00:00:00 Completed [facility] Hep B, Adol or Pedi Dosage 1999-06-24 00:00:00 Completed [facility] Hib-HbOC 1999-06-24 00:00:00 Completed [facility] DTaP, Unspecified Formulation 1999-06-24 00:00:00 Completed [facility] Hep B, Adol or Pedi Dosage 1999-06-24 00:00:00 Completed [facility] Hib-HbOC 1999-06-24 00:00:00 Completed [facility] DTaP, Unspecified Formulation 1999-06-24 00:00:00 Completed [facility] Hep B, Adol or Pedi Dosage 1999-06-24 00:00:00 Completed [facility] Hib-HbOC 1999-06-24 00:00:00 Completed [facility] DTaP, Unspecified Formulation 1999-06-24 00:00:00 Completed [facility] Hep B, Adol or Pedi Dosage 1999-06-24 00:00:00 Completed [facility] Hib-HbOC 1999-06-24 00:00:00 Completed [facility] DTaP, Unspecified Formulation 1999-06-24 00:00:00 Completed [facility] Hep B, Adol or Pedi Dosage 1999-06-24 00:00:00 Completed [facility] Hib-HbOC 1999-06-24 00:00:00 Completed [facility] DTaP, Unspecified Formulation 1999-06-24 00:00:00 Completed [facility] Hep B, Adol or Pedi Dosage 1999-06-24 00:00:00 Completed [facility] Hib-HbOC 1999-06-24 00:00:00 Completed [facility] DTaP, Unspecified Formulation 1999-06-24 00:00:00 Completed [facility] Hep B, Adol or Pedi Dosage 1999-06-24 00:00:00 Completed [facility] Hib-HbOC 1999-06-24 00:00:00 Completed [facility] DTaP, Unspecified Formulation 1999-06-24 00:00:00 Completed [facility] Hep B, Adol or Pedi Dosage 1999-06-24 00:00:00 Completed [facility] Hib-HbOC 1999-06-24 00:00:00 Completed [facility] DTaP, Unspecified Formulation 1999-06-24 00:00:00 Completed [facility] Hep B, Adol or Pedi Dosage 1999-06-24 00:00:00 Completed [facility] Hib-HbOC 1999-06-24 00:00:00 Completed [facility] DTaP, Unspecified Formulation 1999-06-24 00:00:00 Completed [facility] Hep B, Adol or Pedi Dosage 1999-06-24 00:00:00 Completed [facility] Hib-HbOC 1999-06-24 00:00:00 Completed [facility] DTaP, Unspecified Formulation 1999-06-24 00:00:00 Completed [facility] Hep B, Adol or Pedi Dosage 1999-06-24 00:00:00 Completed [facility] Hib-HbOC 1999-06-24 00:00:00 Completed [facility] DTaP, Unspecified Formulation 1999-06-24 00:00:00 Completed [facility] Hep B, Adol or Pedi Dosage 1999-06-24 00:00:00 Completed [facility] Hib-HbOC 1999-06-24 00:00:00 Completed [facility] DTaP, Unspecified Formulation 1999-06-24 00:00:00 Completed [facility] Hep B, Adol or Pedi Dosage 1999-06-24 00:00:00 Completed [facility] Hib-HbOC 1999-06-24 00:00:00 Completed [facility] DTaP, Unspecified Formulation 1999-04-26 00:00:00 Completed [facility] Hib-HbOC 1999-04-26 00:00:00 Completed [facility] IPV 1999-04-26 00:00:00 Completed [facility] DTaP, Unspecified Formulation 1999-04-26 00:00:00 Completed [facility] Hib-HbOC 1999-04-26 00:00:00 Completed [facility] IPV 1999-04-26 00:00:00 Completed [facility] DTaP, Unspecified Formulation 1999-04-26 00:00:00 Completed [facility] Hib-HbOC 1999-04-26 00:00:00 Completed [facility] IPV 1999-04-26 00:00:00 Completed [facility] DTaP, Unspecified Formulation 1999-04-26 00:00:00 Completed [facility] Hib-HbOC 1999-04-26 00:00:00 Completed [facility] IPV 1999-04-26 00:00:00 Completed [facility] DTaP, Unspecified Formulation 1999-04-26 00:00:00 Completed [facility] Hib-HbOC 1999-04-26 00:00:00 Completed [facility] IPV 1999-04-26 00:00:00 Completed [facility] DTaP, Unspecified Formulation 1999-04-26 00:00:00 Completed [facility] Hib-HbOC 1999-04-26 00:00:00 Completed [facility] IPV 1999-04-26 00:00:00 Completed [facility] DTaP, Unspecified Formulation 1999-04-26 00:00:00 Completed [facility] Hib-HbOC 1999-04-26 00:00:00 Completed [facility] IPV 1999-04-26 00:00:00 Completed [facility] DTaP, Unspecified Formulation 1999-04-26 00:00:00 Completed [facility] Hib-HbOC 1999-04-26 00:00:00 Completed [facility] IPV 1999-04-26 00:00:00 Completed [facility] DTaP, Unspecified Formulation 1999-04-26 00:00:00 Completed [facility] Hib-HbOC 1999-04-26 00:00:00 Completed [facility] IPV 1999-04-26 00:00:00 Completed [facility] DTaP, Unspecified Formulation 1999-04-26 00:00:00 Completed [facility] Hib-HbOC 1999-04-26 00:00:00 Completed [facility] IPV 1999-04-26 00:00:00 Completed [facility] DTaP, Unspecified Formulation 1999-04-26 00:00:00 Completed [facility] Hib-HbOC 1999-04-26 00:00:00 Completed [facility] IPV 1999-04-26 00:00:00 Completed [facility] DTaP, Unspecified Formulation 1999-04-26 00:00:00 Completed [facility] Hib-HbOC 1999-04-26 00:00:00 Completed [facility] IPV 1999-04-26 00:00:00 Completed [facility] DTaP, Unspecified Formulation 1999-04-26 00:00:00 Completed [facility] Hib-HbOC 1999-04-26 00:00:00 Completed [facility] IPV 1999-04-26 00:00:00 Completed [facility] DTaP, Unspecified Formulation 1999-02-18 00:00:00 Completed [facility] Hib-HbOC 1999-02-18 00:00:00 Completed [facility] IPV 1999-02-18 00:00:00 Completed [facility] DTaP, Unspecified Formulation 1999-02-18 00:00:00 Completed [facility] Hib-HbOC 1999-02-18 00:00:00 Completed [facility] IPV 1999-02-18 00:00:00 Completed [facility] DTaP, Unspecified Formulation 1999-02-18 00:00:00 Completed [facility] Hib-HbOC 1999-02-18 00:00:00 Completed [facility] IPV 1999-02-18 00:00:00 Completed [facility] DTaP, Unspecified Formulation 1999-02-18 00:00:00 Completed [facility] Hib-HbOC 1999-02-18 00:00:00 Completed [facility] IPV 1999-02-18 00:00:00 Completed [facility] DTaP, Unspecified Formulation 1999-02-18 00:00:00 Completed [facility] Hib-HbOC 1999-02-18 00:00:00 Completed [facility] IPV 1999-02-18 00:00:00 Completed [facility] DTaP, Unspecified Formulation 1999-02-18 00:00:00 Completed [facility] Hib-HbOC 1999-02-18 00:00:00 Completed [facility] IPV 1999-02-18 00:00:00 Completed [facility] DTaP, Unspecified Formulation 1999-02-18 00:00:00 Completed [facility] Hib-HbOC 1999-02-18 00:00:00 Completed [facility] IPV 1999-02-18 00:00:00 Completed [facility] DTaP, Unspecified Formulation 1999-02-18 00:00:00 Completed [facility] Hib-HbOC 1999-02-18 00:00:00 Completed [facility] IPV 1999-02-18 00:00:00 Completed [facility] DTaP, Unspecified Formulation 1999-02-18 00:00:00 Completed [facility] Hib-HbOC 1999-02-18 00:00:00 Completed [facility] IPV 1999-02-18 00:00:00 Completed [facility] DTaP, Unspecified Formulation 1999-02-18 00:00:00 Completed [facility] Hib-HbOC 1999-02-18 00:00:00 Completed [facility] IPV 1999-02-18 00:00:00 Completed [facility] DTaP, Unspecified Formulation 1999-02-18 00:00:00 Completed [facility] Hib-HbOC 1999-02-18 00:00:00 Completed [facility] IPV 1999-02-18 00:00:00 Completed [facility] DTaP, Unspecified Formulation 1999-02-18 00:00:00 Completed [facility] Hib-HbOC 1999-02-18 00:00:00 Completed [facility] IPV 1999-02-18 00:00:00 Completed [facility] DTaP, Unspecified Formulation 1999-02-18 00:00:00 Completed [facility] Hib-HbOC 1999-02-18 00:00:00 Completed [facility] IPV 1999-02-18 00:00:00 Completed [facility] HPV9 Unknown Completed [facility] HPV9 Unknown Completed [facility] Influenza Virus Vaccine Quad .5 mL IM 6+ MO (FLUZONE/FLULAVAL/FL UARIX) Unknown Completed [facility] HPV9 Unknown Completed [facility] DTaP, Unspecified Formulation Unknown Completed [facility] DTaP, Unspecified Formulation Unknown Completed [facility] DTaP, Unspecified Formulation Unknown Completed [facility] DTaP, Unspecified Formulation Unknown Completed [facility] DTaP, Unspecified Formulation Unknown Completed [facility] Influenza Virus Vaccine Quad .5 mL IM 6+ MO (FLUZONE/FLULAVAL/FL UARIX) Unknown Completed [facility] HEPATITIS A Unknown Completed [facility] Hep B, Adol or Pedi Dosage Unknown Completed [facility] Hep B, Adol or Pedi Dosage Unknown Completed [facility] Hep B, Adol or Pedi Dosage Unknown Completed [facility] Hib-HbOC Unknown Completed [facility] Hib-HbOC Unknown Completed [facility] Hib-HbOC Unknown Completed [facility] Hib-HbOC Unknown Completed [facility] HPV Unknown Completed [facility] Meningococcal Polysaccharide (groups A, C, Y and W-135) conjugate vaccine (MCV4P) Unknown Completed [facility] MMR Unknown Completed [facility] MMR Unknown Completed [facility] IPV Unknown Completed [facility] IPV Unknown Completed [facility] IPV Unknown Completed [facility] IPV Unknown Completed [facility] TDAP Unknown Completed [facility] Varicella (varivax)(chicken pox) Unknown Completed [facility] Varicella (varivax)(chicken pox) Unknown Completed [facility] HPV9 Unknown Completed [facility] HPV9 Unknown Completed [facility] Influenza Virus Vaccine Quad .5 mL IM 6+ MO (FLUZONE/FLULAVAL/FL UARIX) Unknown Completed [facility] HPV9 Unknown Completed [facility] DTaP, Unspecified Formulation Unknown Completed [facility] DTaP, Unspecified Formulation Unknown Completed [facility] DTaP, Unspecified Formulation Unknown Completed [facility] DTaP, Unspecified Formulation Unknown Completed [facility] DTaP, Unspecified Formulation Unknown Completed [facility] Influenza Virus Vaccine Quad .5 mL IM 6+ MO (FLUZONE/FLULAVAL/FL UARIX) Unknown Completed [facility] HEPATITIS A Unknown Completed [facility] Hep B, Adol or Pedi Dosage Unknown Completed [facility] Hep B, Adol or Pedi Dosage Unknown Completed [facility] Hep B, Adol or Pedi Dosage Unknown Completed [facility] Hib-HbOC Unknown Completed [facility] Hib-HbOC Unknown Completed [facility] Hib-HbOC Unknown Completed [facility] Hib-HbOC Unknown Completed [facility] HPV Unknown Completed [facility] Meningococcal Polysaccharide (groups A, C, Y and W-135) conjugate vaccine (MCV4P) Unknown Completed [facility] MMR Unknown Completed [facility] MMR Unknown Completed [facility] IPV Unknown Completed [facility] IPV Unknown Completed [facility] IPV Unknown Completed [facility] IPV Unknown Completed [facility] TDAP Unknown Completed [facility] Varicella (varivax)(chicken pox) Unknown Completed [facility] Varicella (varivax)(chicken pox) Unknown Completed [facility] HPV9 Unknown Completed [facility] HPV9 Unknown Completed [facility] Influenza Virus Vaccine Quad .5 mL IM 6+ MO (FLUZONE/FLULAVAL/FL UARIX) Unknown Completed [facility] HPV9 Unknown Completed [facility] DTaP, Unspecified Formulation Unknown Completed [facility] DTaP, Unspecified Formulation Unknown Completed [facility] DTaP, Unspecified Formulation Unknown Completed [facility] DTaP, Unspecified Formulation Unknown Completed [facility] DTaP, Unspecified Formulation Unknown Completed [facility] Influenza Virus Vaccine Quad .5 mL IM 6+ MO (FLUZONE/FLULAVAL/FL UARIX) Unknown Completed [facility] HEPATITIS A Unknown Completed [facility] Hep B, Adol or Pedi Dosage Unknown Completed [facility] Hep B, Adol or Pedi Dosage Unknown Completed [facility] Hep B, Adol or Pedi Dosage Unknown Completed [facility] Hib-HbOC Unknown Completed [facility] Hib-HbOC Unknown Completed [facility] Hib-HbOC Unknown Completed [facility] Hib-HbOC Unknown Completed [facility] HPV Unknown Completed [facility] Meningococcal Polysaccharide (groups A, C, Y and W-135) conjugate vaccine (MCV4P) Unknown Completed [facility] MMR Unknown Completed [facility] MMR Unknown Completed [facility] IPV Unknown Completed [facility] IPV Unknown Completed [facility] IPV Unknown Completed [facility] IPV Unknown Completed [facility] TDAP Unknown Completed [facility] Varicella (varivax)(chicken pox) Unknown Completed [facility] Varicella (varivax)(chicken pox) Unknown Completed [facility] HPV9 Unknown Completed [facility] HPV9 Unknown Completed [facility] Influenza Virus Vaccine Quad .5 mL IM 6+ MO (FLUZONE/FLULAVAL/FL UARIX) Unknown Completed [facility] DTaP, Unspecified Formulation Unknown Completed [facility] DTaP, Unspecified Formulation Unknown Completed [facility] DTaP, Unspecified Formulation Unknown Completed [facility] DTaP, Unspecified Formulation Unknown Completed [facility] DTaP, Unspecified Formulation Unknown Completed [facility] Influenza Virus Vaccine Quad .5 mL IM 6+ MO (FLUZONE/FLULAVAL/FL UARIX) Unknown Completed [facility] HEPATITIS A Unknown Completed [facility] Hep B, Adol or Pedi Dosage Unknown Completed [facility] Hep B, Adol or Pedi Dosage Unknown Completed [facility] Hep B, Adol or Pedi Dosage Unknown Completed [facility] Hib-HbOC Unknown Completed [facility] Hib-HbOC Unknown Completed [facility] Hib-HbOC Unknown Completed [facility] Hib-HbOC Unknown Completed [facility] HPV Unknown Completed [facility] Meningococcal Polysaccharide (groups A, C, Y and W-135) conjugate vaccine (MCV4P) Unknown Completed [facility] MMR Unknown Completed [facility] MMR Unknown Completed [facility] IPV Unknown Completed [facility] IPV Unknown Completed [facility] IPV Unknown Completed [facility] IPV Unknown Completed [facility] TDAP Unknown Completed [facility] Varicella (varivax)(chicken pox) Unknown Completed [facility] Varicella (varivax)(chicken pox) Unknown Completed [facility] HPV9 Unknown Completed [facility] HPV9 Unknown Completed [facility] Influenza Virus Vaccine Quad .5 mL IM 6+ MO (FLUZONE/FLULAVAL/FL UARIX) Unknown Completed [facility] DTaP, Unspecified Formulation Unknown Completed [facility] DTaP, Unspecified Formulation Unknown Completed [facility] DTaP, Unspecified Formulation Unknown Completed [facility] DTaP, Unspecified Formulation Unknown Completed [facility] DTaP, Unspecified Formulation Unknown Completed [facility] Influenza Virus Vaccine Quad .5 mL IM 6+ MO (FLUZONE/FLULAVAL/FL UARIX) Unknown Completed [facility] HEPATITIS A Unknown Completed [facility] Hep B, Adol or Pedi Dosage Unknown Completed [facility] Hep B, Adol or Pedi Dosage Unknown Completed [facility] Hep B, Adol or Pedi Dosage Unknown Completed [facility] Hib-HbOC Unknown Completed [facility] Hib-HbOC Unknown Completed [facility] Hib-HbOC Unknown Completed [facility] Hib-HbOC Unknown Completed [facility] HPV Unknown Completed [facility] Meningococcal Polysaccharide (groups A, C, Y and W-135) conjugate vaccine (MCV4P) Unknown Completed [facility] MMR Unknown Completed [facility] MMR Unknown Completed [facility] IPV Unknown Completed [facility] IPV Unknown Completed [facility] IPV Unknown Completed [facility] IPV Unknown Completed [facility] TDAP Unknown Completed [facility] Varicella (varivax)(chicken pox) Unknown Completed [facility] Varicella (varivax)(chicken pox) Unknown Completed [facility] HPV9 Unknown Completed [facility] HPV9 Unknown Completed [facility] Influenza Virus Vaccine Quad .5 mL IM 6+ MO (FLUZONE/FLULAVAL/FL UARIX) Unknown Completed [facility] DTaP, Unspecified Formulation Unknown Completed [facility] DTaP, Unspecified Formulation Unknown Completed [facility] DTaP, Unspecified Formulation Unknown Completed [facility] DTaP, Unspecified Formulation Unknown Completed [facility] DTaP, Unspecified Formulation Unknown Completed [facility] Influenza Virus Vaccine Quad .5 mL IM 6+ MO (FLUZONE/FLULAVAL/FL UARIX) Unknown Completed [facility] HEPATITIS A Unknown Completed [facility] Hep B, Adol or Pedi Dosage Unknown Completed [facility] Hep B, Adol or Pedi Dosage Unknown Completed [facility] Hep B, Adol or Pedi Dosage Unknown Completed [facility] Hib-HbOC Unknown Completed [facility] Hib-HbOC Unknown Completed [facility] Hib-HbOC Unknown Completed [facility] Hib-HbOC Unknown Completed [facility] HPV Unknown Completed [facility] Meningococcal Polysaccharide (groups A, C, Y and W-135) conjugate vaccine (MCV4P) Unknown Completed [facility] MMR Unknown Completed [facility] MMR Unknown Completed [facility] IPV Unknown Completed [facility] IPV Unknown Completed [facility] IPV Unknown Completed [facility] IPV Unknown Completed [facility] TDAP Unknown Completed [facility] Varicella (varivax)(chicken pox) Unknown Completed [facility] Varicella (varivax)(chicken pox) Unknown Completed [facility] HPV9 Unknown Completed [facility] HPV9 Unknown Completed [facility] Influenza Virus Vaccine Quad .5 mL IM 6+ MO (FLUZONE/FLULAVAL/FL UARIX) Unknown Completed [facility] DTaP, Unspecified Formulation Unknown Completed [facility] DTaP, Unspecified Formulation Unknown Completed [facility] DTaP, Unspecified Formulation Unknown Completed [facility] DTaP, Unspecified Formulation Unknown Completed [facility] DTaP, Unspecified Formulation Unknown Completed [facility] Influenza Virus Vaccine Quad .5 mL IM 6+ MO (FLUZONE/FLULAVAL/FL UARIX) Unknown Completed [facility] HEPATITIS A Unknown Completed [facility] Hep B, Adol or Pedi Dosage Unknown Completed [facility] Hep B, Adol or Pedi Dosage Unknown Completed [facility] Hep B, Adol or Pedi Dosage Unknown Completed [facility] Hib-HbOC Unknown Completed [facility] Hib-HbOC Unknown Completed [facility] Hib-HbOC Unknown Completed [facility] Hib-HbOC Unknown Completed [facility] HPV [facility] [facility] Meningococcal Polysaccharide (groups A, C, Y and W-135) conjugate vaccine (MCV4P) Unknown Completed [facility] MMR Unknown Completed [facility] MMR Unknown Completed [facility] IPV Unknown Completed [facility] IPV Unknown Completed [facility] IPV Unknown Completed [facility] IPV Unknown Completed [facility] TDAP Unknown Completed [facility] Varicella (varivax)(chicken pox) Unknown Completed [facility] Varicella (varivax)(chicken pox) Unknown Completed [facility] HPV9 Unknown Completed [facility] HPV9 Unknown Completed [facility] Influenza Virus Vaccine Quad .5 mL IM 6+ MO (FLUZONE/FLULAVAL/FL UARIX) Unknown Completed [facility] HPV9 Unknown Completed [facility] TDAP Unknown Completed [facility] DTaP, Unspecified Formulation Unknown Completed [facility] DTaP, Unspecified Formulation Unknown Completed [facility] DTaP, Unspecified Formulation Unknown Completed [facility] DTaP, Unspecified Formulation Unknown Completed [facility] DTaP, Unspecified Formulation Unknown Completed [facility] Influenza Virus Vaccine Quad .5 mL IM 6+ MO (FLUZONE/FLULAVAL/FL UARIX) Unknown Completed [facility] HEPATITIS A Unknown Completed [facility] Hep B, Adol or Pedi Dosage Unknown Completed [facility] Hep B, Adol or Pedi Dosage Unknown Completed [facility] Hep B, Adol or Pedi Dosage Unknown Completed [facility] Hib-HbOC Unknown Completed [facility] Hib-HbOC Unknown Completed [facility] Hib-HbOC Unknown Completed [facility] Hib-HbOC Unknown Completed [facility] HPV Unknown Completed [facility] Meningococcal Polysaccharide (groups A, C, Y and W-135) conjugate vaccine (MCV4P) Unknown Completed [facility] MMR Unknown Completed [facility] MMR Unknown Completed [facility] IPV Unknown Completed [facility] IPV Unknown Completed [facility] IPV Unknown Completed [facility] IPV Unknown Completed [facility] TDAP Unknown Completed [facility] Varicella (varivax)(chicken pox) Unknown Completed [facility] Varicella (varivax)(chicken pox) Unknown Completed [facility] HPV9 Unknown Completed [facility] HPV9 Unknown Completed [facility] Influenza Virus Vaccine Quad .5 mL IM 6+ MO (FLUZONE/FLULAVAL/FL UARIX) Unknown Completed [facility] HPV9 Unknown Completed [facility] TDAP Unknown Completed [facility] DTaP, Unspecified Formulation Unknown Completed [facility] DTaP, Unspecified Formulation Unknown Completed [facility] DTaP, Unspecified Formulation Unknown Completed [facility] DTaP, Unspecified Formulation Unknown Completed [facility] DTaP, Unspecified Formulation Unknown Completed [facility] Influenza Virus Vaccine Quad .5 mL IM 6+ MO (FLUZONE/FLULAVAL/FL UARIX) Unknown Completed [facility] HEPATITIS A Unknown Completed [facility] Hep B, Adol or Pedi Dosage Unknown Completed [facility] Hep B, Adol or Pedi Dosage Unknown Completed [facility] Hep B, Adol or Pedi Dosage Unknown Completed [facility] Hib-HbOC Unknown Completed [facility] Hib-HbOC Unknown Completed [facility] Hib-HbOC Unknown Completed [facility] Hib-HbOC Unknown Completed [facility] HPV Unknown Completed [facility] Meningococcal Polysaccharide (groups A, C, Y and W-135) conjugate vaccine (MCV4P) Unknown Completed [facility] MMR Unknown Completed [facility] MMR Unknown Completed [facility] IPV Unknown Completed [facility] IPV Unknown Completed [facility] IPV Unknown Completed [facility] IPV Unknown Completed [facility] TDAP Unknown Completed [facility] Varicella (varivax)(chicken pox) Unknown Completed [facility] Varicella (varivax)(chicken pox) Unknown Completed [facility] HPV9 Unknown Completed [facility] HPV9 Unknown Completed [facility] Influenza Virus Vaccine Quad .5 mL IM 6+ MO (FLUZONE/FLULAVAL/FL UARIX) Unknown Completed [facility] HPV9 Unknown Completed [facility] TDAP Unknown Completed [facility] DTaP, Unspecified Formulation Unknown Completed [facility] DTaP, Unspecified Formulation Unknown Completed [facility] DTaP, Unspecified Formulation Unknown Completed [facility] DTaP, Unspecified Formulation Unknown Completed [facility] DTaP, Unspecified Formulation Unknown Completed [facility] Influenza Virus Vaccine Quad .5 mL IM 6+ MO (FLUZONE/FLULAVAL/FL UARIX) Unknown Completed [facility] HEPATITIS A Unknown Completed [facility] Hep B, Adol or Pedi Dosage Unknown Completed [facility] Hep B, Adol or Pedi Dosage Unknown Completed [facility] Hep B, Adol or Pedi Dosage Unknown Completed [facility] Hib-HbOC Unknown Completed [facility] Hib-HbOC Unknown Completed [facility] Hib-HbOC Unknown Completed [facility] Hib-HbOC Unknown Completed [facility] HPV Unknown Completed [facility] Meningococcal Polysaccharide (groups A, C, Y and W-135) conjugate vaccine (MCV4P) Unknown Completed [facility] MMR Unknown Completed [facility] MMR Unknown Completed [facility] IPV Unknown Completed [facility] IPV Unknown Completed [facility] IPV Unknown Completed [facility] IPV Unknown Completed [facility] TDAP Unknown Completed [facility] Varicella (varivax)(chicken pox) Unknown Completed [facility] Varicella (varivax)(chicken pox) Unknown Completed [facility] HPV9 Unknown Completed [facility] HPV9 Unknown Completed [facility] Influenza Virus Vaccine Quad .5 mL IM 6+ MO (FLUZONE/FLULAVAL/FL UARIX) Unknown Completed [facility] HPV9 Unknown Completed [facility] TDAP Unknown Completed [facility] DTaP, Unspecified Formulation Unknown Completed [facility] DTaP, Unspecified Formulation Unknown Completed [facility] DTaP, Unspecified Formulation Unknown Completed [facility] DTaP, Unspecified Formulation Unknown Completed [facility] DTaP, Unspecified Formulation Unknown Completed [facility] Influenza Virus Vaccine Quad .5 mL IM 6+ MO (FLUZONE/FLULAVAL/FL UARIX) Unknown Completed [facility] HEPATITIS A Unknown Completed [facility] Hep B, Adol or Pedi Dosage Unknown Completed [facility] Hep B, Adol or Pedi Dosage Unknown Completed [facility] Hep B, Adol or Pedi Dosage Unknown Completed [facility] Hib-HbOC Unknown Completed [facility] Hib-HbOC Unknown Completed [facility] Hib-HbOC Unknown Completed [facility] Hib-HbOC Unknown Completed [facility] HPV Unknown Completed [facility] Meningococcal Polysaccharide (groups A, C, Y and W-135) conjugate vaccine (MCV4P) Unknown Completed [facility] MMR Unknown Completed [facility] MMR Unknown Completed [facility] IPV Unknown Completed [facility] IPV Unknown Completed [facility] IPV Unknown Completed [facility] IPV Unknown Completed [facility] TDAP Unknown Completed [facility] Varicella (varivax)(chicken pox) Unknown Completed [facility] Varicella (varivax)(chicken pox) Unknown Completed [facility] HPV9 Unknown Completed [facility] HPV9 Unknown Completed [facility] Influenza Virus Vaccine Quad .5 mL IM 6+ MO (FLUZONE/FLULAVAL/FL UARIX) Unknown Completed [facility] HPV9 Unknown Completed [facility] TDAP Unknown Completed [facility] DTaP, Unspecified Formulation Unknown Completed [facility] DTaP, Unspecified Formulation Unknown Completed [facility] DTaP, Unspecified Formulation Unknown Completed [facility] DTaP, Unspecified Formulation Unknown Completed [facility] DTaP, Unspecified Formulation Unknown Completed [facility] Influenza Virus Vaccine Quad .5 mL IM 6+ MO (FLUZONE/FLULAVAL/FL UARIX) Unknown Completed [facility] HEPATITIS A Unknown Completed [facility] Hep B, Adol or Pedi Dosage Unknown Completed [facility] Hep B, Adol or Pedi Dosage Unknown Completed [facility] Hep B, Adol or Pedi Dosage Unknown Completed [facility] Hib-HbOC Unknown Completed [facility] Hib-HbOC Unknown Completed [facility] Hib-HbOC Unknown Completed [facility] Hib-HbOC Unknown Completed [facility] HPV Unknown Completed [facility] Meningococcal Polysaccharide (groups A, C, Y and W-135) conjugate vaccine (MCV4P) Unknown Completed [facility] MMR Unknown Completed [facility] MMR Unknown Completed [facility] IPV Unknown Completed [facility] IPV Unknown Completed [facility] IPV Unknown Completed [facility] IPV Unknown Completed [facility] TDAP Unknown Completed [facility] Varicella (varivax)(chicken pox) Unknown Completed [facility] Varicella (varivax)(chicken pox) Unknown Completed [facility] Vital Signs Vital Name Observation Time Observation Value Comments S ource Systolic blood pressure 2023-03-08 16:42:00 142 mm[Hg] [facility] Diastolic blood pressure 2023-03-08 16:42:00 89 mm[Hg] [facility] Heart rate 2023-03-08 16:42:00 91 /[facility] 2023-03-08 16:41:00 36.44 Gin [facility] Respiratory rate 2023-03-08 16:41:00 20 /min [facility] Body weight 2023-03-08 16:41:00 115.355 kg [facility] BMI 2023-03-08 16:41:00 37.56 kg/m2 [facility] Systolic blood pressure 2023-01-06 15:38:00 116 mm[Hg] [facility] Diastolic blood pressure 2023-01-06 15:38:00 77 mm[Hg] [facility] Heart rate 2023-01-06 15:38:00 76 /min Unive [facility] Body temperature 2023-01-06 15:38:00 36.39 Gin [facility] Respiratory rate 2023-01-06 15:38:00 20 /min [facility] Body height 2023-01-06 15:38:00 175.3 cm [facility] Body weight 2023-01-06 15:38:00 111.84 kg [facility] BMI 2023-01-06 15:38:00 36.41 kg/m2 [facility] Systolic blood pressure 2022-12-17 12:40:00 124 mm[Hg] [facility] Diastolic blood pressure 2022-12-17 12:40:00 85 mm[Hg] [facility] Heart rate 2022-12-17 12:40:00 100 /min [facility] Body temperature 2022-12-17 12:40:00 36.67 Gin [facility] Respiratory rate 2022-12-17 12:40:00 18 /min [facility] Oxygen saturation in Arterial blood by Pulse oximetry 2022-12-17 12:40:00 97 /min [facility] Body height 2022-12-15 20:40:00 175.3 cm [facility] Body weight 2022-12-15 20:40:00 120.657 kg [facility] BMI 2022-12-15 20:40:00 39.28 kg/m2 [facility] Systolic blood pressure 2022-12-13 13:36:00 130 mm[Hg] [facility] Diastolic blood pressure 2022-12-13 13:36:00 90 mm[Hg] [facility] Heart rate 2022-12-13 13:36:00 116 /min [facility] Body temperature 2022-12-13 13:36:00 35.06 Gin [facility] Respiratory rate 2022-12-13 13:36:00 18 /min [facility] Body height 2022-12-13 13:36:00 175.3 cm [facility] Body weight 2022-12-13 13:36:00 120.385 kg [facility] BMI 2022-12-13 13:36:00 39.19 kg/m2 [facility] Systolic blood pressure 2022-12-07 16:07:00 125 mm[Hg] [facility] Diastolic blood pressure 2022-12-07 16:07:00 79 mm[Hg] [facility] Heart rate 2022-12-07 16:07:00 88 /min [facility] Body temperature 2022-12-07 16:07:00 35.22 Gin [facility] Respiratory rate 2022-12-07 16:07:00 18 /min [facility] Body height 2022-12-07 16:07:00 175.3 cm [facility] Body weight 2022-12-07 16:07:00 121.156 kg [facility] BMI 2022-12-07 16:07:00 39.44 kg/m2 [facility] Systolic blood pressure 2022-11-28 17:30:00 123 mm[Hg] [facility] Diastolic blood pressure 2022-11-28 17:30:00 74 mm[Hg] [facility] Heart rate 2022-11-28 17:30:00 70 [facility] Oxygen saturation in Arterial blood by Pulse oximetry 2022-11-28 17:30:00 98 /min [facility] Body temperature 2022-11-28 14:30:00 36.61 Gin [facility] Respiratory rate 2022-11-28 14:30:00 20 /min [facility] Body height 2022-11-28 14:30:00 175.3 cm [facility] Body weight 2022-11-28 14:30:00 120.657 kg [facility] BMI 2022-11-28 14:30:00 39.28 kg/m2 [facility] Systolic blood pressure 2022-11-23 16:02:00 128 mm[Hg] [facility] Diastolic blood pressure 2022-11-23 16:02:00 75 mm[Hg] [facility] Heart rate 2022-11-23 16:02:00 88 /min [facility] Body temperature 2022-11-23 16:02:00 36.06 Gin [facility] Respiratory rate 2022-11-23 16:02:00 20 /min [facility] Body height 2022-11-23 16:02:00 175.3 cm [facility] Body weight 2022-11-23 16:02:00 120.77 kg [facility] BMI 2022-11-23 16:02:00 39.32 kg/m2 [facility] Systolic blood pressure 2022-11-09 12:53:00 120 mm[Hg] [facility] Diastolic blood pressure 2022-11-09 12:53:00 74 mm[Hg] [facility] Heart rate 2022-11-09 12:53:00 95 /min [facility] Body temperature 2022-11-09 12:53:00 36.39 Gin [facility] Respiratory rate 2022-11-09 12:53:00 20 /min [facility] Body height 2022-11-09 12:53:00 175.3 cm [facility] Body weight 2022-11-09 12:53:00 121.745 kg [facility] BMI 2022-11-09 12:53:00 39.64 kg/m2 [facility] Systolic blood pressure 2022-10-21 15:56:00 129 mm[Hg] [facility] Diastolic blood pressure 2022-10-21 15:56:00 78 mm[Hg] [facility] Heart rate 2022-10-21 15:56:00 101 /min [facility] Body temperature 2022-10-21 15:56:00 35.5 Gin [facility] Respiratory rate 2022-10-21 15:56:00 18 /min [facility] Body height 2022-10-21 15:56:00 175.3 cm [facility] Body weight 2022-10-21 15:56:00 120.022 kg [facility] BMI 2022-10-21 15:56:00 39.07 kg/m2 [facility] Systolic blood pressure 2022-10-07 14:59:00 122 mm[Hg] [facility] Diastolic blood pressure 2022-10-07 14:59:00 70 mm[Hg] [facility] Heart rate 2022-10-07 14:59:00 103 /min [facility] Body temperature 2022-10-07 14:59:00 35.78 Gin [facility] Respiratory rate 2022-10-07 14:59:00 18 /min [facility] Body height 2022-10-07 14:59:00 175.3 cm [facility] Body weight 2022-10-07 14:59:00 119.886 kg [facility] BMI 2022-10-07 14:59:00 39.03 kg/m2 [facility] Systolic blood pressure 2022-09-23 16:10:00 125 mm[Hg] [facility] Diastolic blood pressure 2022-09-23 16:10:00 76 mm[Hg] [facility] Heart rate 2022-09-23 16:10:00 100 /min [facility] Body temperature 2022-09-23 16:10:00 36 Gin [facility] Respiratory rate 2022-09-23 16:10:00 18 /min [facility] Body height 2022-09-23 16:10:00 175.3 cm [facility] Body weight 2022-09-23 16:10:00 119.659 kg [facility] BMI 2022-09-23 16:10:00 38.96 kg/m2 [facility] Systolic blood pressure 2022-08-17 15:24:00 132 mm[Hg] [facility] Diastolic blood pressure 2022-08-17 15:24:00 73 mm[Hg] [facility] Heart rate 2022-08-17 15:24:00 90 /min [facility] Body temperature 2022-08-17 15:24:00 35.83 Gin [facility] Respiratory rate 2022-08-17 15:24:00 18 /min [facility] Body height 2022-08-17 15:24:00 175.3 cm [facility] Body weight 2022-08-17 15:24:00 115.35 kg [facility] BMI 2022-08-17 15:24:00 37.55 kg/m2 [facility] Systolic blood pressure 2022-07-21 14:43:00 130 mm[Hg] [facility] Diastolic blood pressure 2022-07-21 14:43:00 71 mm[Hg] [facility] Heart rate 2022-07-21 14:43:00 97 /min [facility] Body temperature 2022-07-21 14:43:00 36.89 Gin [facility] Respiratory rate 2022-07-21 14:43:00 17 /min [facility] Body height 2022-07-21 14:43:00 175.3 cm [facility] Body weight 2022-07-21 14:43:00 114.851 kg [facility] BMI 2022-07-21 14:43:00 37.39 kg/m2 [facility] Systolic blood pressure 2022-06-22 15:09:00 134 mm[Hg] [facility] Diastolic blood pressure 2022-06-22 15:09:00 90 mm[Hg] [facility] Heart rate 2022-06-22 15:09:00 98 /min [facility] Body temperature 2022-06-22 15:09:00 37.06 Gin [facility] Respiratory rate 2022-06-22 15:09:00 18 /min [facility] Body height 2022-06-22 15:09:00 175.3 cm [facility] Body weight 2022-06-22 15:09:00 109.816 kg [facility] BMI 2022-06-22 15:09:00 35.75 kg/m2 [facility] Systolic blood pressure 2022-05-25 15:32:00 119 mm[Hg] [facility] Diastolic blood pressure 2022-05-25 15:32:00 69 mm[Hg] [facility] Heart rate 2022-05-25 15:32:00 81 /min Un[facility] Body temperature 2022-05-25 15:32:00 36.28 Gni [facility] Respiratory rate 2022-05-25 15:32:00 18 /min [facility] Body height 2022-05-25 15:32:00 175.3 cm [facility] Body weight 2022-05-25 15:32:00 111.721 kg [facility] BMI 2022-05-25 15:32:00 36.37 kg/m2 [facility] Systolic blood pressure 2022-04-27 15:52:00 136 mm[Hg] [facility] Diastolic blood pressure 2022-04-27 15:52:00 79 mm[Hg] [facility] Heart rate 2022-04-27 15:52:00 98 /min [facility] Body temperature 2022-04-27 15:52:00 36.28 Gin [facility] Respiratory rate 2022-04-27 15:52:00 18 /min [facility] Body height 2022-04-27 15:52:00 175.3 cm [facility] Body weight 2022-04-27 15:52:00 109.856 kg [facility] BMI 2022-04-27 15:52:00 35.76 kg/m2 [facility] Systolic blood pressure 2022-02-17 15:46:00 131 mm[Hg] [facility] Diastolic blood pressure 2022-02-17 15:46:00 80 mm[Hg] [facility] Heart rate 2022-02-17 15:46:00 104 /min [facility] Body temperature 2022-02-17 15:46:00 36.94 Gin [facility] Respiratory rate 2022-02-17 15:46:00 18 /min [facility] Body weight 2022-02-17 15:46:00 108.455 kg [facility] BMI 2022-02-17 15:46:00 35.31 kg/m2 [facility] Systolic blood pressure 2022-02-10 21:46:00 121 mm[Hg] [facility] Diastolic blood pressure 2022-02-10 21:46:00 69 mm[Hg] [facility] Heart rate 2022-02-10 21:46:00 92 /min [facility] Body temperature 2022-02-10 21:46:00 36.11 Gin [facility] Respiratory rate 2022-02-10 21:46:00 18 /min [facility] Body height 2022-02-10 21:46:00 175.3 cm [facility] Body weight 2022-02-10 21:46:00 109.77 kg [facility] BMI 2022-02-10 21:46:00 35.74 kg/m2 [facility] Systolic blood pressure 2021-06-30 14:10:00 116 mm[Hg] [facility] Diastolic blood pressure 2021-06-30 14:10:00 66 mm[Hg] [facility] Heart rate 2021-06-30 14:10:00 96 /min [facility] Body temperature 2021-06-30 14:10:00 36.33 Gin [facility] Respiratory rate 2021-06-30 14:10:00 18 /min [facility] Body height 2021-06-30 14:10:00 175.3 cm [facility] Body weight 2021-06-30 14:10:00 112.129 kg [facility] BMI 2021-06-30 14:10:00 36.51 kg/m2 [facility] Procedures Procedure Date / Time Performed Performing Clinician Source POCT TEST 2023-03-08 16:51:00 Maya Aparicio [facility] CONSENT FOR CONTRACEPTION 2023-03-08 06:01:00 Doctor Unassigned, [place] [facility] CBC WITH DIFF 2023-01-06 16:19:00 Simona Aparicio [facility] CBC WITH DIFF 2022-12-17 09:09:00 [facility] VENOUS CORD GAS 2022-12-16 14:24:00 [facility] CENTRAL NEURAXIAL BLOCK 2022-12-16 06:04:00 Bi De Leon [facility] CBC WITH DIFF 2022-12-15 21:29:00 Surya Slater [facility] HEPATITIS B SURFACE ANTIGEN 2022-12-15 21:29:00 [facility] HB ABO GROUPING 2022-12-15 21:29:00 Surya Slater [facility] RHO (D) IMMUNE GLOBULIN 2022-12-15 21:29:00 Higinio Mcneill [facility] HIV 1/2 AG-AB WITH REFLEX 2022-12-15 21:29:00 Nohemy [facility] SYPHILIS IGG/IGM 2022-12-15 21:29:00 [facility] HOSPITAL ADMISSION 2022-12-15 05:01:00 Doctor Un assigned, [place] [facility] POCT URINALYSIS 2022-12-13 13:39:00 Lyudmila Montoya [facility] POCT URINALYSIS 2022-12-07 16:09:00 Lyudmila Montoya [facility] URINALYSIS 2022-11-28 16:20:00 Lucille Foster [facility] ADC CLC OR [facility] ONLY - WET PREP 2022-11-28 16:20:00 Lucille Foster [facility] EXTERNAL PROVIDER RECORDS 2022-11-28 05:01:00 Doctor Unassigned, [place] [facility] MEDICAL RELEASE/CLEARANCE FORMS 2022-11-28 05:01:00 Doctor Unassigned, [place] [facility] [facility] L&D VISIT (NON-DELIVERED) 2022-11-28 05:01:00 Doctor Unassigned, [place] [facility] POCT URINALYSIS 2022-11-23 16:05:00 Lyudmila Montoya [facility] POCT URINALYSIS 2022-11-09 00:00:00 Lyudmila Montoya [facility] POCT URINALYSIS 2022-10-21 15:58:00 Lyudmila Montoya [facility] TDAP VACCINE, >11 YRS, IM 2022-10-07 15:19:25 Lyudmila Montoya [facility] POCT URINALYSIS 2022-10-07 15:02:00 Lyudmila Montoya [facility] POCT URINALYSIS 2022-09-23 16:18:00 Lyudmila Montoya [facility] POCT URINALYSIS 2022-08-17 15:26:00 Lyudmila Montoya [facility] POCT URINALYSIS 2022-07-21 00:00:00 Lyudmila Montoya [facility] TRICHOMONAS AMPLIFIED ASSAY 2022-06-28 18:13:00 Lyudmila Montoya [facility] FIRST TRIMESTER ULTRASOUND 2022-06-23 14:50:00 Lyudmila Montoya [facility] POCT URINALYSIS 2022-06-22 15:09:00 Lyudmila Montoya [facility] CONSENT/REFUSAL FOR DIAGNOSIS AND TREATMENT 2022-06-22 14:48:52 Doctor Unassigned, [place] [facility] POCT URINALYSIS 2022-05-25 15:34:00 Lyudmila Montoya [facility] GC & CHLAMYDIA AMPLIFIED ASSAY 2022-05-09 20:54:00 Lyudmila Montoya [facility] TRICHOMONAS AMPLIFIED ASSAY 2022-05-09 20:54:00 Lyudmila Montoya [facility] POCT URINALYSIS W/O SPECIFIC GRAVITY 2022-04-27 15:45:00 Lyudmila Montoya [facility] POCT TEST 2022-04-27 15:44:00 Lavelle Montoya [facility] REPORT OF 2022-04-27 06:01:00 Doctor Kendall yates, [place] [facility] POCT TEST 2022-02-17 15:48:00 Lavelle Montoya [facility] POCT TEST 2022-02-10 00:00:00 Maya Aparicio [facility] BCCS-RELATED DOCUMENTATION 2022-01-19 05:01:00 Doctor Unassigned, [place] [facility] BI ULTRASOUND BREAST COMPLETE LEFT 2021-09-22 18:30:10 Lyudmila Montoya [facility] Encounters Start Date/Time End Date/Time Encounter Type Admission Type Attending [facility] Care Facility Care Department Encounter ID Source 2021-02-02 06:13:19 Emergency [facility] [id number] [facility] 2021-01-30 14:34:27 Emergency [facility] [id number] [facility] 2023-03-08 10:30:00 2023-03-08 11:42:48 Outpatient R SIMONA APARICIO [facility] [id number] [facility] 2023-03-08 10:30:00 2023-03-08 11:42:48 Office Visit Simona Aparicio [facility] DAIRY FEED MIXING OPERATOR [facility] 1.840.114 350.1.13.10 4.2.7.2.686 [id number] [facility] 2023-03-08 00:00:00 2023-03-08 00:00:00 Orders Only Doctor Unassigned, [place] [facility] 1..840.114 350.1.13.10 4.2.7.2.686 [id number] [facility] 2023-01-26 09:45:00 2023-01-26 09:45:00 Outpatient R PIERREMARYBEL SIMONA [facility] [id number] [facility] 2023-01-26 00:00:00 2023-01-26 00:00:00 Telephone Simona Aparicio [facility] DAIRY FEED MIXING OPERATOR [facility] 1.2.840.114 350.1.13.10 4.2.7.2.686 [id number] [facility] 2023-01-06 10:00:00 2023-01-06 11:20:32 Outpatient R BEANLyubov SIMONA [facility] [id number] [facility] 2023-01-06 10:00:00 2023-01-06 11:20:32 Routine Visit Simona Aparicio [facility] DAIRY FEED MIXING OPERATOR [facility] 1.2840.114 350.1.13.10 4.2.7.2.686 [id number] [facility] 2022-12-19 00:00:00 2022-12-19 00:00:00 Telephone Lyudmila Motnoya [facility] DAIRY FEED MIXING OPERATOR [facility] 1.2.840.114 350.1.13.10 4.2.7.2.686 [id number] [facility] 2022-12-15 15:05:00 2022-12-17 15:20:00 Inpatient U KARRI DAY [facility] [id number] [facility] 2022-12-15 15:05:00 2022-12-17 15:20:00 Hospital Encounter Karri Day [facility] 1.20.114 350.1.13.10 4.2.7.2.686 [id number] [facility] 2022-12-16 00:34:00 2022-12-16 11:22:00 Anesthesia Event Abimbola Zimmerman Sarah [facility] 1.2.840.114 350.1.13.10 4.2.7.2.686 [id number] [facility] 2022-12-15 00:00:00 2022-12-15 00:00:00 Orders Only Doctor Unassigned, [place] [facility] 1.2.840.114 350.1.13.10 4.2.7.2.686 [id number] [facility] 2022-12-13 08:30:00 2022-12-13 09:06:22 Outpatient R LYUDMILA MONTOYA [facility] [id number] [facility] 2022-12-13 08:30:00 2022-12-13 09:06:22 Routine Visit Lyudmila Montoya [facility] DAIRY FEED MIXING OPERATOR [facility] 1.2.840.114 350.1.13.10 4.2.7.2.686 [id number] [facility] 2022-12-07 11:00:00 2022-12-07 11:15:00 Routine Visit Lyudmila Montoya [facility] DAIR[facility] FEED MIXING OPERATOR [facility] 1.2.840.114 350.1.13.10 4.2.7.2.686 [id number] [facility] 2022-12-07 11:00:00 2022-12-07 11:00:00 Outpatient R LYUDMILA MONTOYA [facility] [id number] [facility] 2022-11-30 09:45:00 2022-11-30 09:45:00 Outpatient R LYUDMILA MONTOYA [facility] [id number] [facility] 2022-11-28 09:23:00 2022-11-28 13:05:00 Outpatient U LORENA S, LUCILLE LORENA S, LUCILLE [facility] [id number] [facility] 2022-11-28 09:23:00 2022-11-28 13:05:00 Hospital Encounter Lucille Morse [facility] 1..840.114 350.1.13.10 4.2.7.2.686 [id number] [facility] 2022-11-23 11:00:00 2022-11-23 11:42:15 Outpatient R SIMONA APARICIO [facility] [id number] [facility] 2022-11-23 11:00:00 2022-11-23 11:42:15 Routine Visit Simona Aparicio [facility] DAIRY FEED MIXING OPERATOR [facility] 1..840.114 350.1.13.10 4.2.7.2.686 [id number] [facility] 2022-11-09 07:45:00 2022-11-09 08:21:13 Outpatient R LYUDMILA MONTOYA [facility] [id number] [facility] 2022-11-09 07:45:00 2022-11-09 08:21:13 Routine Visit Simona Aparicio Damilola C [facility] DAIRY FEED MIXING OPERATOR [facility] 1..840.114 350.1.13.10 4.2.7.2.686 [id number] [facility] 2022-11-04 15:00:00 2022-11-04 15:00:00 Outpatient R LYUDMILA MONTOYA [facility] [id number] [facility] 2022-10-21 10:45:00 2022-10-21 11:11:59 Outpatient R LYUDMILA MONTOYA [facility] [id number] [facility] 2022-10-21 10:45:00 2022-10-21 11:11:59 Routine Visit Lyudmila Montoya [facility] DAIR[facility] FEED MIXING OPERATOR [facility] 1.2.840.114 350.1.13.10 4.2.7.2.686 [id number] [facility] 2022-10-07 10:00:00 2022-10-07 10:58:26 Outpatient R JAN LYUDMILA [facility] [id number] [facility] 2022-10-07 10:00:00 2022-10-07 10:58:26 Routine Visit Lyudmila Montoay Didier [facility] DAIRY FEED MIXING OPERATOR [facility] 1.2.840.114 350.1.13.10 4.2.7.2.686 [id number] [facility] 2022-10-02 00:00:00 2022-10-02 00:00:00 Patient Secure Msg Jan Lyudmila C [facility] DAIRY FEED MIXING OPERATOR [facility] 1.2.840.114 350.1.13.10 4.2.7.2.686 [id number] [facility] 2022-09-29 00:00:00 2022-09-29 00:00:00 Abstract Lyudmila Montoya [facility] DAIR[facility] FEED MIXING OPERATOR [facility] 1.2.840.114 350.1.13.10 4.2.7.2.686 [id number] [facility] 2022-09-28 14:30:00 2022-09-28 14:58:03 Project Management Professional Visit 1, [facility] Room Parvez Ramirez [facility] DAIRY FEED MIXING OPERATOR [facility] 1.2.840.114 350.1.13.10 4.2.7.2.686 [id number] [facility] 2022-09-28 14:30:00 2022-09-28 14:30:00 Outpatient P PARVEZ RAMIREZ COREY [facility] [id number] [facility] 2022-09-26 00:00:00 2022-09-26 00:00:00 Telephone Lyudmila Montoya [facility] DAIR[facility] FEED MIXING OPERATOR [facility] 1.2.840.114 350.1.13.10 4.2.7.2.686 [id number] [facility] 2022-09-23 11:00:00 2022-09-23 11:54:21 Outpatient R LYUDMILA MONTOYA [facility] [id number] [facility] 2022-09-23 11:00:00 2022-09-23 11:54:21 Routine Visit Lyudmila Montoya [facility] DAIRY FEED MIXING OPERATOR [facility] 1.840.114 350.1.13.10 4.2.7.2.686 [id number] [facility] 2022-09-14 09:00:00 2022-09-14 09:00:00 Outpatient R LYUDMILA MONTOYA [facility] [id number] [facility] 2022-08-18 00:00:00 2022-08-18 00:00:00 Abstract Lyudmila Montoya [facility] DAIRY FEED MIXING OPERATOR [facility] 1.2840.114 350.1.13.10 4.2.7.2.686 [id number] [facility] 2022-08-18 00:00:00 2022-08-18 00:00:00 Patient Secure Msg Lyudmila Montoya [facility] DAIRY FEED MIXING OPERATOR [facility] 1.2840.114 350.1.13.10 4.2.7.2.686 [id number] [facility] 2022-08-18 00:00:00 2022-08-18 00:00:00 Abstract Lyudmila Montoya [facility] DAIRY FEED MIXING OPERATOR [facility] 1.2.840.114 350.1.13.10 4.2.7.2.686 [id number] [facility] 2022-08-17 10:45:00 2022-08-17 11:29:04 Routine Visit Lyudmila Montoya [facility] DAIRY FEED MIXING OPERATOR [facility] 1.840.114 350.1.13.10 4.2.7.2.686 [id number] [facility] 2022-08-17 09:15:00 2022-08-17 10:30:00 Project Management Professional Visit Ultrasound, Madeline Bernabe [facility] DAIR[facility] FEED MIXING OPERATOR [facility] 1.84.114 350.1.13.10 4.2.7.2.686 [id number] [facility] 2022-08-17 09:15:00 2022-08-17 09:55:18 Outpatient P MADELINE GARCIA SANGEETA [facility] [id number] [facility] 2022-07-21 09:45:00 2022-07-21 10:31:29 Outpatient R LYUDMILA MONTOYA [facility] [id number] [facility] 2022-07-21 09:45:00 2022-07-21 10:31:29 Routine Visit Lyudmila Montoya [facility] DAIRY FEED MIXING OPERATOR [facility] .84.114 350.1.13.10 4.2.7.2.686 [id number] [facility] 2022-07-14 00:00:00 2022-07-14 00:00:00 Abstract Lyudmila Montoya [facility] DAIRY FEED MIXING OPERATOR [facility] 1..840.114 350.1.13.10 4.2.7.2.686 [id number] [facility] 2022-06-28 13:15:00 2022-06-28 13:15:00 Outpatient R LYUDMILA MONTOYA [facility] [id number] [facility] 2022-06-28 13:15:00 2022-06-28 13:15:00 Project Management Professional Visit Lab, Lyudmila Marvin [facility] DAIRY FEED MIXING OPERATOR [facility] 1.0.114 350.1.13.10 4.2.7.2.686 [id number] [facility] 2022-06-24 00:00:00 2022-06-24 00:00:00 Abstract Lyudmila Montoya [facility] DAIRY FEED MIXING OPERATOR [facility] 1..114 350.1.13.10 4.2.7.2.686 [id number] [facility] 2022-06-23 09:15:00 2022-06-23 15:56:10 Outpatient P PARVEZ RAMIREZ PARVEZ [facility] [id number] [facility] 2022-06-23 09:15:00 2022-06-23 15:56:10 Project Management Professional Visit 1, [facility] James Parvez [facility] DAIRY FEED MIXING OPERATOR [facility] CHILD [facility] 1.84.114 350.1.13.10 4.2.7.2.686 [id number] [facility] 2022-06-23 10:00:00 2022-06-23 10:12:39 Project Management Professional Visit Lab, Tonya Gallo [facility] DAIRY FEED MIXING OPERATOR [facility] 1..114 350.1.13.10 4.2.7.2.686 [id number] [facility] 2022-06-23 00:00:00 2022-06-23 00:00:00 Telephone Lyudmila Montoya [facility] DAIRY FEED MIXING OPERATOR [facility] 1.2.840.114 350.1.13.10 4.2.7.2.686 [id number] [facility] 2022-06-22 09:45:00 2022-06-22 10:36:01 Outpatient R LYUDMILA MONTOYA [facility] [id number] [facility] 2022-06-22 09:45:00 2022-06-22 10:36:01 Routine Visit Lyudmila Montoya [facility] DAIR[facility] FEED MIXING OPERATOR [facility] 1.840.114 350.1.13.10 4.2.7.2.686 [id number] [facility] 2022-06-22 00:00:00 2022-06-22 00:00:00 Orders Only Doctor Unassigned, [place] [facility] 1.840.114 350.1.13.10 4.2.7.2.686 [id number] [facility] 2022-05-25 09:45:00 2022-05-25 09:59:33 Outpatient R LYUDMILA MONTOYA [facility] [id number] [facility] 2022-05-25 09:45:00 2022-05-25 09:59:33 Routine Visit Lyudmila Montoya [facility] DAIR[facility] FEED MIXING OPERATOR [facility] 1.840.114 350.1.13.10 4.2.7.2.686 [id number] [facility] 2022-05-10 00:00:00 2022-05-10 00:00:00 Telephone Lyudmila Montoya [facility] DAIR[facility] FEED MIXING OPERATOR [facility] 1.840.114 350.1.13.10 4.2.7.2.686 [id number] [facility] 2022-05-09 13:15:00 2022-05-09 13:23:32 Outpatient R LYUDMILA MONTOYA [facility] [id number] [facility] 2022-05-09 13:15:00 2022-05-09 13:23:32 Project Management Professional Visit Lab, Michael-Rmchp Lyudmila Montoya [facility] DAIR[facility] FEED MIXING OPERATOR [facility] 1.840.114 350.1.13.10 4.2.7.2.686 [id number] [facility] 2022-05-05 12:45:00 2022-05-05 12:45:00 Outpatient R LYUDMILA MONTOYA [facility] [id number] [facility] 2022-05-04 00:00:00 2022-05-04 00:00:00 Telephone Lyudmila Montoya [facility] DAIRY FEED MIXING OPERATOR [facility] 1.840.114 350.1.13.10 4.2.7.2.686 [id number] [facility] 2022-05-02 00:00:00 2022-05-02 00:00:00 Telephone Lyudmila Montoya [facility] DAIR[facility] FEED MIXING OPERATOR [facility] .84.114 350.1.13.10 4.2.7.2.686 [id number] [facility] 2022-04-29 13:00:00 2022-04-29 13:00:00 Outpatient R LYUDMILA MONTOYA [facility] [id number] [facility] 2022-04-27 10:00:00 2022-04-27 10:53:17 Outpatient R LYUDMILA MONTOYA [facility] [id number] [facility] 2022-04-27 10:00:00 2022-04-27 10:53:17 Initial Visit Lyudmila Montoya [facility] DAIR[facility] FEED MIXING OPERATOR [facility] 1.840.114 350.1.13.10 4.2.7.2.686 [id number] [facility] 2022-04-27 00:00:00 2022-04-27 00:00:00 Telephone Lyudmila Montoya [facility] DAIR[facility] FEED MIXING OPERATOR [facility] 1.2.114 350.1.13.10 4.2.7.2.686 [id number] [facility] 2022-04-27 00:00:00 2022-04-27 00:00:00 Orders Only Doctor Unassigned, [place] [facility] 1..114 350.1.13.10 4.2.7.2.686 [id number] [facility] 2022-03-04 09:15:00 2022-03-04 09:15:00 Outpatient SIMONA KATE [facility] [id number] [facility] 2022-03-04 00:00:00 2022-03-04 00:00:00 Telephone Lyudmila Montoya [facility] DAIR[facility] FEED MIXING OPERATOR [facility] 1..114 350.1.13.10 4.2.7.2.686 [id number] [facility] 2022-02-17 10:00:00 2022-02-17 10:08:43 Outpatient SIMONA KATE [facility] [id number] [facility] 2022-02-17 10:00:00 2022-02-17 10:08:43 Office Visit Provider, Michael-Rmchp Simona Villa [facility] DAIRY FEED MIXING OPERATOR [facility] 1..114 350.1.13.10 4.2.7.2.686 [id number] 107 [id number] [facility] 2022-02-11 00:00:00 2022-02-11 00:00:00 Case Management Simona Aparicio [facility] DAIR[facility] FEED MIXING OPERATOR [facility] 1.20.114 350.1.13.10 4.2.7.2.686 [id number] [facility] 2022-02-10 15:30:00 2022-02-10 16:18:34 Outpatient R SIMONA APARICIO [facility] [id number] [facility] 2022-02-10 15:30:00 2022-02-10 16:18:34 Office Visit Provider, ShahabRmp Simona Villa [facility] DAIR[facility] FEED MIXING OPERATOR [facility] 1.114 350.1.13.10 4.2.7.2.686 [id number] [facility] 2022-01-19 00:00:00 2022-01-19 00:00:00 Orders Only Doctor Unassigned, [place] [facility] 1.114 350.1.13.10 4.2.7.2.686 [id number] [facility] 2021-12-31 09:40:00 2021-12-31 09:40:00 Outpatient R UNKNOWN, ATTENDING [facility] [id number] [facility] 2021-12-30 00:00:00 2021-12-30 00:00:00 Patient Secure Msg Hellen Woods [facility] [employer] FEED MIXING OPERATOR [facility] 1.114 350.1.13.10 4.2.7.2.686 [id number] 107 [id number] [facility] 2021-09-22 12:17:01 2021-09-22 23:59:00 Outpatient R LYUDMILA MONTOYA [facility] [id number] [facility] 2021-09-22 12:17:01 2021-09-22 23:59:00 Hospital Encounter Lyudmila Motnoya [facility] .114 350.1.13.10 4.2.7.2.686 [id number] [facility] 2021-09-22 00:00:00 2021-09-22 00:00:00 Outpatient R LYUDMILA MONTOYA [facility] [id number] [facility] 2021-06-30 12:45:00 2021-06-30 13:32:57 Outpatient R COLTKINGS LYUDMILA [facility] [id number] [facility] 2021-06-30 12:45:00 2021-06-30 12:45:00 Outpatient R COLTKINGSLYUDMILA [facility] [id number] [facility] 2021-06-30 09:15:00 2021-06-30 09:49:37 Outpatient R JAN LYUDMILA [facility] [id number] [facility] 2021-06-30 09:15:00 2021-06-30 09:49:37 Office Visit Lyudmila Montoya [facility] DAIR[facility] FEED MIXING OPERATOR [facility] .840.114 350.1.13.10 4.2.7.2.686 [id number] [facility] 2021-06-30 09:15:00 2021-06-30 09:49:37 Outpatient R COLTKINGS LYUDMILA [facility] [id number] [facility] 2021-06-30 09:15:00 2021-06-30 09:49:37 Outpatient R NICHOLETITO L[facility]UDM[facility]A [facility] [id number] [facility] 2021-06-30 00:00:00 2021-06-30 00:00:00 Orders Only Doctor Unassigned, [place] [facility] ..114 350.1.13.10 4.2.7.2.686 [id number] [facility] 2021-06-02 00:00:00 2021-06-02 00:00:00 Case Management Rachana Teague .840.114 350.1.13.10 4.2.7.2.686 [id number] [facility] 2021-05-26 10:15:00 2021-05-26 10:54:44 Office Visit Lyudmila Montoya [facility] DAIR[facility] FEED MIXING OPERATOR [facility] 1.840.114 350.1.13.10 4.2.7.2.686 [id number] [facility] 2021-05-26 10:15:00 2021-05-26 10:54:44 Outpatient R LYUDMILA MONTOYA [facility] [id number] [facility] 2021-05-26 10:15:00 2021-05-26 10:15:00 Outpatient R LYUDMILA MONTOYA [facility] [id number] [facility] 2021-05-26 00:00:00 2021-05-26 00:00:00 Orders Only Doctor Unassigned, [place] [facility] 1..114 350.1.13.10 4.2.7.2.686 [id number] [facility] 2021-05-21 10:00:00 2021-05-21 10:00:00 Outpatient R LYUDMILA MONTOYA [facility] [id number] [facility] 2021-01-12 15:00:00 2021-01-12 17:49:00 Emergency Sergio Calloway [facility] ..114 350.1.13.10 4.2.7.2.686 [id number] [facility] 2020-08-24 00:00:00 2020-08-24 00:00:00 Patient Secure WoodsHellen R [facility] DAIR[facility] FEED MIXING OPERATOR [facility] 1.840.114 350.1.13.10 4.2.7.2.686 [id number] [facility] 2020-07-10 12:30:00 2020-07-10 12:30:00 Outpatient R [facility] [id number] [facility] 2020-06-23 00:00:00 2020-06-23 00:00:00 Patient Outreach Tye Travis [facility] 1..840.114 350.1.13.10 4.2.7.2.686 [id number] [facility] 2020-06-03 10:28:44 2020-06-03 11:00:41 Office Visit Hellen Woods [facility] DAIR[facility] FEED MIXING OPERATOR [facility] CHILD [facility] 1..840.114 350.1.13.10 4.2.7.2.686 [id number] [facility] 2020-06-03 10:45:00 2020-06-03 10:45:00 Outpatient R HELLEN WOODS [facility] [id number] [facility] 2020-06-03 10:45:00 2020-06-03 10:45:00 Outpatient R HELLEN WOODS [facility] [id number] [facility] 2020-06-02 00:00:00 2020-06-02 00:00:00 Patient Secure Msg Doctor Unassigned, [place] [facility] CHILD [facility] 1..840.114 350.1.13.10 4.2.7.2.686 [id number] [facility] 2020-06-01 00:00:00 2020-06-01 00:00:00 Patient Secure Msg Doctor Unassigned, [place] [facility] DAIRY FEED MIXING OPERATOR [facility] & CHILD [facility] 1..840.114 350.1.13.10 4.2.7.2.686 [id number] [facility] 2020-04-15 14:30:00 2020-04-15 14:30:00 Outpatient R HELLEN WOODS [facility] [id number] [facility] 2020-04-15 14:30:00 2020-04-15 14:30:00 Outpatient R HELLEN WOODS [facility] [id number] [facility] 2020-04-14 13:30:00 2020-04-14 13:30:00 Outpatient R CHECO WOODSPARISHMORGAN [facility] [id number] [facility] 2020-04-09 13:30:00 2020-04-09 13:30:00 Outpatient R CHECO WOODSMORGAN [facility] [id number] [facility] 2020-04-07 13:45:00 2020-04-07 13:45:00 Outpatient Dana HOUSTON AC [facility] [id number] [facility] 2020-04-05 06:31:00 2020-04-05 06:45:00 Emergency Rosalina Ac [facility] 1.2.840.114 350.1.13.10 4.2.7.2.686 [id number] [facility] 2020-04-05 06:31:00 2020-04-05 06:45:00 Emergency Rosalina Ac [facility] 1.2.840.114 350.1.13.10 4.2.7.2.686 [id number] 2020-04-01 00:00:00 2020-04-01 00:00:00 Patient Secure Msg Doctor Unassigned, [place] [facility] DAIRY FEED MIXING OPERATOR [facility] & CHILD [facility] 1.2.840.114 350.1.13.10 4.2.7.2.686 [id number] [facility] 2020-03-16 13:09:12 2020-03-16 14:29:45 Office Visit Hellen Woods Dana [facility] DAIRY FEED MIXING OPERATOR [facility] & CHILD [facility] 1.2.840.114 350.1.13.10 4.2.7.2.686 [id number] [facility] 2020-03-16 13:09:12 2020-03-16 14:29:45 Office Visit Hellen Woods [facility] DAIRY FEED MIXING OPERATOR [facility] & CHILD [facility] 1.2.840.114 350.1.13.10 4.2.7.2.686 [id number] 2020-03-16 13:15:00 2020-03-16 13:15:00 Outpatient R HELLEN WOODS [facility] [id number] [facility] 2020-03-16 00:00:00 2020-03-16 00:00:00 Orders Only Doctor Unassigned, [place] [facility] 1.2.840.114 350.1.13.10 4.2.7.2.686 [id number] [facility] 2018-12-19 00:00:00 2018-12-19 00:00:00 Telephone [place] Ac [facility] DAIRY FEED MIXING OPERATOR [facility] 1.2.840.114 350.1.13.10 4.2.7.2.686 [id number] [facility] 2018-12-11 00:00:00 2018-12-11 00:00:00 Orders Only Doctor Unassigned, [place] [facility] 1.2840.114 350.1.13.10 4.2.7.2.686 [id number] [facility] 2018-10-31 15:40:31 2018-10-31 15:57:46 Office Visit [place] Ac [facility] 1.2.840.114 350.1.13.10 4.2.7.2.686 [id number] [facility] Results Test Description Test Time Test Comments Results Result Co mments Source [facility] [id number] 16:51:00* Test Item Value Reference Range Interpretation Comme nts POCT PREG (test code = 1605) Negative On board controls acceptable with C Line (test code = 3574) Yes POCT PREG LOT # (test code = 3575) POCT PREG TEST DATE ( test code = 3576) [facility] WITH [id number] 05:59:31* Test Item Value Reference Range Interpretation [...] g/dL 31.6-35.1 L RDW-SD (test code = 95514-5) 39.0 fL 39.0-49.9 RDW-CV (test code = 788-0) 12.2 % 12.0-15.5 PLT (test code = 777-3) 373 See_Comment H [Automated messa ge] The system which generated this result transmitted reference range: 166 - 358 10*3/?L. The reference range was not used to interpret this result as normal/abnormal. MPV (test code = 76421-0) 12.3 fL 9.5-12.9 NRBC/100 WBC (test code = 2924104363) 0.0 See_Comment [Automated Inline.me ssage] The system which generated this result transmitted reference range: 0.0 - 10.0 /100 WBCs. The reference range was not used to interpret this result as normal/abnormal. NRBC x10^3 (test code = 8081303638) See_Comment [Automated messa ge] The system which generated this result transmitted reference range: 10*3/?L. The reference range was not used to interpret this result as normal/abnormal. GRAN MAT (NEUT) % (test code = 770-8) 64.0 % IMM GRAN % (test code = 0128094962) 0.30 % LYMPH % (test code = 736-9) 27.5 % MONO % (test code = 5905-5) 5.8 % EOS % (test code = 713-8) 1.7 % BASO % (test code = 706-2) 0.7 % GRAN MAT x10^3(ANC) (test code = 8890654035) 5.48 10*3/uL 1.88-7.09 IMM GRAN x10^3 (test code = 7853586063) 0.03 10*3/uL 0.00-0.06 LYMPH x10^3 (test code = 731-0) 2.36 10*3/uL 1.32-3.29 MONO x10^3 (test code = 742-7) 0.50 10*3/uL 0.33-0.92 EOS x10^3 (test code = 711-2) 0.15 10*3/uL 0.03-0.39 BASO x10^3 (test code = 704-7) 0.06 10*3/uL 0.01-0.07 Lab Interpretation (test code = 65626-4) Abnormal [facility]D) IMMUNE KPVQVOQG7585-18-27 19:41:02* Test Item Value Reference Range Interpretation Comme nts RHIG CANDIDATE? (test code = 5188) No- see comment Patient is not a candidate for RhIg- Patient is Rh Positive.Performed at [facility] Laboratory Services - [facility] Blood [address] [place] [address] 20479Yixx Free: [phone] No. [id number] [facility] CenterGALV ONLY - SYPHILIS IGG/PSS3519-76-82 14:55:03* Test Item Value Reference Range Interpretation Comme nts Syphilis IgG/IgM (test code = 38057-3) Non-reactive Non-reactive TIMOTHY (test code = TIMOTHY) Non-reactive - No serologic evidence of T. pallidum infection. Cannot exclude incubating or early syphilis. Submit a second specimen in 2-4 weeks if syphilis is clinically suspected. Equivocal - Further testing to follow. Reactive - Further testing to follow. Lab Interpretation (test code = 77057-3) Normal [facility] CenterArterial Cord Laa2555-61-51 14:36:22* Test Item Value Reference Range Interpretation Comme nts BASE EXCESS, CORD (test code = 3639079276) -6.6 mEq/L AC PH, CORD (BEAKER) (test code = 4133282592) 7.25 7.18-7.38 PC02, CORD (test code = 0872150972) 49 See_Comment [Automated messa ge] The system which generated this result transmitted reference range: 32 - 66 mmHg. The reference range was not used to interpret this result as normal/abnormal. PO2, CORD (test code = 2179503003) 21 See_Comment [Automated messa ge] The system which generated this result transmitted reference range: 10 - 30 mmHg. The reference range was not used to interpret this result as normal/abnormal. BICARBONATE, CORD (test code = 2181365345) 21 See_Comment [Automated messa ge] The system which generated this result transmitted reference range: 17 - 27 mEq/L. The reference range was not used to interpret this result as normal/abnormal. [facility] Wzm1067-08-78 14:35:01* Test Item Value Reference Range Interpretation Comme nts VENOUS BASE EXCESS, CORD (test code = 1969431065) -3.6 mEq/L VENOUS PH, CORD (test code = 4044955154) 7.36 7.25-7.45 VENOUS PC02, CORD (test code = 6719077133) 39 See_Comment [Automated messa ge] The system which generated this result transmitted reference range: 27 - 49 mmHg. The reference range was not used to interpret this result as normal/abnormal. VENOUS PO2, CORD (test code = 8235328650) 32 See_Comment [Automated me ssage] The system which generated this result transmitted reference range: 17 - 41 mmHg. The reference range was not used to interpret this result as normal/abnormal. VENOUS BICARBONATE, CORD (test code = 6611490661) 21 See_Comment [Automated messa ge] The system which generated this result transmitted reference range: 12 - 29 mEq/L. The reference range was not used to interpret this result as normal/abnormal. [facility] 1/2 AG-AB WITH [id number] 00:43:22* Test Item Value Reference Range Interpretation Comme nts HIV Semi-quantitative (test code = 90893-4) 0.09 Negative TIMOTHY (test code = TIMOTHY) Non-reactive for HIV-1 antigen and HIV-1/HIV-2 antibodies. ?No laboratory evidence of HIV infection. ?Repeat in 2-4 weeks if acute HIV infection is suspected. [facility] CenterHepatitis B Surface Vpxicsk1898-61-07 23:04:25 * Test Item Value Reference Range Interpretation Comme nts HBsAg Semi-Quantitative (vida t code = 5195-3) 0.17 Negative [facility] CenterCBC with Ianboovcvktc0004-02-47 21:44:01* Test Item Value Reference Range Interpretation [...] 34.0 g/dL 31.6-35.1 RDW-SD (test code = 31002-9) 39.6 fL 39.0-49.9 RDW-CV (test code = 788-0) 12.9 % 12.0-15.5 PLT (test code = 777-3) 290 See_Comment [Automated message] The system which generated this result transmitted reference range: 166 - 358 10*3/?L. The reference range was not used to interpret this result as normal/abnormal. MPV (test code = 60234-9) 12.0 fL 9.5-12.9 NRBC/100 WBC (test code = 7407498977) 0.0 See_Comment [Automated message] The system which generated this result transmitted reference range: 0.0 - 10.0 /100 WBCs. The reference range was not used to interpret this result as normal/abnormal. NRBC x10^3 (test code = 5466579110) See_Comment [Automated message] The system which generated this result transmitted reference range: 10*3/?L. The reference range was not used to interpret this result as normal/abnormal. GRAN MAT (NEUT) % (test code = 770-8) 74.5 % IMM GRAN % (test code = 6850504287) 1.40 % LYMPH % (test code = 736-9) 18.1 % MONO % (test code = 5905-5) 5.1 % EOS % (test code = 713-8) 0.6 % BASO % (test code = 706-2) 0.3 % GRAN MAT x10^3(ANC) (test code = 6143287176) 11.92 10*3/uL 1.88-7.09 H IMM GRAN x10^3 (test code = 4060562093) 0.23 10*3/uL 0.00-0.06 H LYMPH x10^3 (test code = 731-0) 2.90 10*3/uL 1.32-3.29 MONO x10^3 (test code = 742-7) 0.82 10*3/uL 0.33-0.92 EOS x10^3 (test code = 711-2) 0.10 10*3/uL 0.03-0.39 BASO x10^3 (test code = 704-7) 0.05 10*3/uL 0.01-0.07 Lab Interpretation (test code = 88628-4) Abnormal [facility] CenterType and Screen - ONCE [id number] 21:39:00 * Test Item Value Reference Range Interpretation Comme nts ABO & RH (test code = 20) B POSITIVE IAT (test code = 1185) Negative [facility] URINALYSIS W SPECIFIC BVUCIRE4063-02-05 13:41:00* Test Item Value Reference Range Interpretation [...] U APPEAR (test code = 3267) . [facility] URINALYSIS W SPECIFIC YECRWXI4582-65-72 16:09:00* Test Item Value Reference Range Interpretation [...] U APPEAR (test code = 3267) . [facility] URINALYSIS W SPECIFIC YDIBKLA7598-77-15 16:06:00* Test Item Value Reference Range Interpretation [...] POCT U APPEAR (test code = 3267) [facility] URINALYSIS W SPECIFIC XPJCXJF9934-46-84 12:55:00* Test Item Value Reference Range Interpretation [...] U APPEAR (test code = 3267) . [facility] URINALYSIS W SPECIFIC WTTUDCW6244-52-24 12:55:00* Test Item Value Reference Range Interpretation [...] U APPEAR (test code = 3267) . [facility] URINALYSIS W SPECIFIC NDTYWQL0644-65-06 15:58:00* Test Item Value Reference Range Interpretation [...] U APPEAR (test code = 3267) . [facility] URINALYSIS W SPECIFIC KOWZHYD6120-64-93 15:58:00* Test Item Value Reference Range Interpretation [...] U APPEAR (test code = 3267) . [facility] URINALYSIS W SPECIFIC ONHEEAU3641-79-73 15:02:00* Test Item Value Reference Range Interpretation [...] U APPEAR (test code = 3267) . [facility] URINALYSIS W SPECIFIC FCNIDBJ1669-00-32 16:18:00* Test Item Value Reference Range Interpretation [...] U APPEAR (test code = 3267) . [facility] URINALYSIS W SPECIFIC [id number] 16:18:00* Test Item Value Reference Range Interpretation [...] U APPEAR (test code = 3267) . [facility] URINALYSIS W SPECIFIC FTULSKM7810-81-72 16:18:00* Test Item Value Reference Range Interpretation [...] U APPEAR (test code = 3267) . [facility] URINALYSIS W SPECIFIC AKEXGPV6311-82-81 15:26:00* Test Item Value Reference Range Interpretation [...] U APPEAR (test code = 3267) . [facility] URINALYSIS W SPECIFIC YQTWQGE1704-72-00 15:26:00* Test Item Value Reference Range Interpretation [...] U APPEAR (test code = 3267) . [facility] URINALYSIS W SPECIFIC FWYRIFG4429-32-29 15:26:00* Test Item Value Reference Range Interpretation [...] U APPEAR (test code = 3267) . [facility] URINALYSIS W SPECIFIC [id number] 15:26:00* Test Item Value Reference Range Interpretation [...] U APPEAR (test code = 3267) . [facility] URINALYSIS W SPECIFIC JBUNYAQ8089-25-06 14:46:00* Test Item Value Reference Range Interpretation [...] U APPEAR (test code = 3267) . [facility] URINALYSIS W SPECIFIC ICTPELH0940-78-64 14:46:00* Test Item Value Reference Range Interpretation [...] U APPEAR (test code = 3267) . [facility] URINALYSIS W SPECIFIC ONRPFSP9268-48-81 15:10:00* Test Item Value Reference Range Interpretation [...] U APPEAR (test code = 3267) . [facility] URINALYSIS W SPECIFIC [id number] 15:10:00* Test Item Value Reference Range Interpretation [...] U APPEAR (test code = 3267) . [facility] URINALYSIS W SPECIFIC LNXXJOL8626-36-04 15:10:00* Test Item Value Reference Range Interpretation [...] U APPEAR (test code = 3267) . [facility] URINALYSIS W SPECIFIC PEDGXHO1818-61-19 15:10:00* Test Item Value Reference Range Interpretation [...] U APPEAR (test code = 3267) . [facility] URINALYSIS W SPECIFIC PEJRTGL1233-24-79 15:34:00* Test Item Value Reference Range Interpretation [...] U APPEAR (test code = 3267) . [facility] URINALYSIS W SPECIFIC MYEIVKH1103-34-30 15:34:00* Test Item Value Reference Range Interpretation [...] U APPEAR (test code = 3267) . [facility] URINALYSIS W/O SPECIFIC [id number] 15:45:00* Test Item Value Reference Range Interpretation [...] = 3257) Trace Negative - Negati ve [facility] [id number] 15:44:00* Test Item Value Reference Range Interpretation Comme nts POCT PREG (test code = 1605) Positive On board controls acceptable with C Line (test code = 3574) Yes POCT PREG LOT # (test code = 3575) POCT PREG TEST DATE ( test code = 3576) [facility] [id number] 15:48:00* Test Item Value Reference Range Interpretation Comme nts POCT PREG (test code = 1605) Negative On board controls acceptable with C Line (test code = 3574) Yes POCT PREG LOT # (test code = 3575) POCT PREG TEST DATE ( test code = 3576) [facility] [id number] 15:48:00* Test Item Value Reference Range Interpretation Comme nts POCT PREG (test code = 1605) Negative On board controls acceptable with C Line (test code = 3574) Yes POCT PREG LOT # (test code = 3575) POCT PREG TEST DATE ( test code = 3576) [facility] [id number] 22:27:00* Test Item Value Reference Range Interpretation Comme nts POCT PREG (test code = 1605) Negative On board controls acceptable with C Line (test code = 3574) Yes POCT PREG LOT # (test code = 3575) POCT PREG TEST DATE ( test code = 3576) [facility] [id number] 22:27:00* Test Item Value Reference Range Interpretation Comme nts POCT PREG (test code = 1605) Negative On board controls acceptable with C Line (test code = 3574) Yes POCT PREG LOT # (test code = 3575) POCT PREG TEST DATE ( test code = 3576) [facility] History and Physical Notes Date/Time Note Provider Source 2022-11-28 12:51:05 3935-40-60I83:51:05F ormatting of this note is different from the original.ANTEPARTUM HISTORY & PHYSICALIDENTIFYING DATAArkristina Harmon is 21 year old, /White, 36w4d, female with MIROSLAVA 12/22/2022, by Ultrasound. : 2000MRN: [id number] Care Physician: Lyudmila Jiangpespital Day: 1CHIEF COMPLAINTcontractionsHISTORY OF PRESENT NKXLXRE1 year old @36w4d presents as a transfer from [facility].Pt states contractions have decreased and just feel [...] - 0 % %Station - -4 by PAINT TECHNICIAN OF LABORATORY, PATHOLOGY, AND RADIOLOGY DATALab results:CBC [...] Discharge home with labor warningsMarisol MD Kristin 73488-0Zpywmwp and physical nqsnDH6480-15-15P29:54:40History and physical noteTXT1.2.840.666094.1.13.104.2.7.2.40065 9|[id number] for patient hodb47299-8Nxkhveb and physical noteLNUT[address] QoasLwfvchcyjQgqafivpqXWRC7655021255JSDMKQ MOWODOBCBFWUWGSJ6518-96-01P07:54:401.2.840 .674016.1.72.3.15|1.2.840.258940.1.13.104. 2.7.2.727879_[id number] [facility] Procedure Notes Date/Time Note Provider Source 2022-12-16 01:04:12 5698-08-04H98:04:12A ssociated Order(s): Central Neuraxial Block Central Neuraxial Block Date/Time: 12/16/2022 1:04 AMPerformed by: Marcus De Leon MDAuthorized by: Hiram Foster MD Patient Location: OBEnd Time: 12/16/2022 1:04 AMReason for Block: OB request, Patient request, Labor analgesia, Surgical anesthesia and Post-op pain managementStaff: Anesthesiologist: Hiram Foster MD Resident/BEADER: Marcus De Leon MD Performed by: resident/CRNAPreanesthetic [...] air and catheter Guidance with: landmark technique}Epidural/Spinal Shannon and/or Catheter: Epidural/Spinal Kit: Lorna Needle Type: [...] betadine x 3Subcutaneous infiltration with 1% Lidocaine ALXEI at 7 cm; catheter secured at 11 cm with mastisol, tegaderm x2 and 3-inch clear tape.Aspiration test negative x 3Test dose negativePatient tolerated procedure well with no immediate complicationsEpidural expectations; PCEA explained and fall precautions given. 83202-9Mcxrpwzqrxykiz procedure cmhmVS9052-79-67W64:04:49Anesthes iology procedure noteTXT1.2.840.375576.1.13.104.2. 7.2.808317|[id number] for patient ftat43627-1Ludjcxrr operation sodrSSHC-DLLEJNCGHUHHUSYY-FMJQKTM [address] VjkdSjepzxckbIdbtlqskgZEYS6236877 037GANNUFTFAUPRLLYWWJIFRG4749-15- 15T01:04:491.2.840.239723.1.72.3. 15|1.2.840.539087.1.13.104.2.7.2. 727879_1900007744 AN-ANESTHESIOLOGY [facility] Notes Date/Time Note Provider Source 2022-12-19 11:34:57 7842-94-41W00:34:57 Pt calling, requesting work excuse for her partner Maxi Blakely for date of IOL. Letter prepared and sent via [employer].Rosemary Rose RN 12/19/22 11:36 AM 68027-2Hwmvpvuhm encounter DeurKE3353-41-72E42:41:45Telephone encounter NoteTXT1.2.840.821264.1.13.104.2.7. 2.037289|[id number] for patient gvry18695-4PnhoUBKCHOLUGS[address] CfczWfcljwivvMktxodldfTSZS198322659 3OTLILXITYMIHOBETPXIMLG7172-71-04I1 1:41:451.2.840.764746.1.72.3.15|1.2 .840.022566.1.13.104.2.7.2.727879_1 [id number] [facility] 2022-12-19 11:18:36 8660-98-08E24:18:36 Marla Harmon is a 21 year old female calling requesting excuse letter for being at the delivering of baby on 12/15. Please contact patient at [phone] signed by Toña Lam at 12/19/2022 11:21 AM ZDN57725-8Duqxxkkwv encounter LnxlXF8148-66-98P23:21:01Telephone encounter NoteTXT1.2.840.867630.1.13.104.2.7. 2.100502|[id number] for patient bvsv07214-4QhthWH660270633Qrdbo D Lars[address] [id number] 6UUASLSMVDEPVGBVBFDEZVV1849-93-52H6 1:21:011.2.840.085127.1.72.3.15|1.2 .840.029034.1.13.104.2.7.2.727879_1 [id number] Toña Lam [facility] 2022-12-17 14:15:17 1868-14-75X15:15:17 Problem: PainGoal: Control of pain at or below patient's documented comfort goalOutcome: Adequate for dischargeGoal: Reduction in pain sensationOutcome: Adequate for discharge Problem: Infection RiskGoal: Absence of infectionOutcome: Adequate for discharge Problem: Discharge Planning - PostpartumGoal: Adequate for dischargeOutcome: Adequate for dischargeGoal: Mood stableOutcome: Adequate for discharge Problem: Falls, Risk ofGoal: Absence of fallsOutcome: Adequate for discharge 37137-6Mzzx of care pgaoOH7892-14-98A39:15:21Plan of care noteTXT1.2.840.195669.1.13.104.2.7. 2.654875|[id number] for patient rgci35937-2TmmuDI055466452Vayd M Seaton RN[address] [id number] 1NLPPLYYORONUUXOBGYPZMY4497-75-65L8 4:15:211.2.840.943960.1.72.3.15|1.2 .840.654186.1.13.104.2.7.2.727879_1 [id number] Darline Leon RN [facility] 2022-12-17 14:00:00 3332-50-48V32:00:00 Images from the original note were not included.This note was copied from a baby's chart. Assessment (most recent) Assessment - 12/17/22 1400 General Information Visit Initial Percent of weight loss- 3.22 Number of voids last 24 hours- Infant 2 Number of stools last 24 hours- 4 Mom's age (years) 23 years Gestational age 39 weeks 2 Parity 2 Living Children 2 Feeding plan Breast Breastfeed previously No plans As long as possible Planned maternity leave -- about 5 months Breast Pump Has Breast Pump Electric Financial Class -- recommended to apply for [facility] Delivery method Infant Oral Assessment Oral assessment New assessment Date of 12/16/22 Time of 0905 location Mother Baby Unit Chin Normal Palate assessment Normal;High Restricted tongue motion observed Able to strip gloved finger;Able to cup finger Upper lip assessment Normal;Can flange Breast Assessment Breast Assessment Initial Symmetry Symmetrical Size L (D-DD) Shape Rounded;Pendulous Other Soft Nipple & Areola Assessment Left Areola Pliable Right Areola Pliable Left Nipple Colostrum visible;Intact;Everted;Short Right Nipple Colostrum visible;Intact;Everted;Short Literature Resources Resources guide;[place] [employer] Education 6 months exclusive , up to and beyond 1 year with complimentary foods; hunger cues;On-demand feeds at least 8 or more over 24 hours;Diaper counts/color;Lactogenesis;Benefits of skin to skin contact;Encouraged rooming-in;Waking techniques;Signs of an effective latch; stomach size;Post circumcision feeding patterns;2nd day/growth spurt cluster feeds Threader Observation Reported;Mom states latches well with no pain reports infant was well on left side; difficulty on right Position right side Cross cradle assisted to breastfeed on right in cross cradle. sleepy after circumcision; Mom able to manually express drops colostrum Interventions Taught hand expression Mother demonstrated teach back of Breast massage and hand expression Follow up Mom will call staff;Apply to [facility] services after discharge;[facility] warmline;[employer] Recommended Feeding Plan Recommended feeding plan On-demand , 8-12 times in 24 hours not to exceed 6 hours between feeds;Frequent lmxa-or-gvcd time with parents Nakia Mayes RN, BSN, IBCLC 71099-8Xydvdhabha IogpQL1451-36-59R90:58:54Obstetrics NoteTXT1.2.840.519799.1.13.104.2.7. 2.823001|[id number] for patient yldi10894-2HuirAH292316402Yurtj L Pinter RNUT[address] XugzRefqjzxktGugednhemFIDU250748297 1CZROFGWGUWLBLADKRQFYOC3114-86-54X8 4:58:541.2.840.510726.1.72.3.15|1.2 .840.320483.1.13.104.2.7.2.727879_1 [id number] Nakia Dafne Mayes RN [facility] 2022-12-16 17:10:13 5635-45-13T23:10:13 Problem: Intrapartum process (including labor pain)Goal: Absence [...] ofGoal: Absence of fallsOutcome: Progressing as expected 89633-8Gyni of care nzazTL2703-22-87J68:10:16Plan of care noteTXT1.2.840.669416.1.13.104.2.7. 2.636758|[id number] for patient gepz65282-3WyiuHK139179293Ozzrbjo Jamal RNUTMB[address] HysrXpl[id number] 7RRPYZOPJFKRQISFCOKCIDE5572-15-27I9 7:10:161.2.840.862851.1.72.3.15|1.2 .840.291761.1.13.104.2.7.2.727879_1 [id number] Hayleyjanes Jamal KINNEY [facility] 2022-12-16 11:41:25 8222-72-32U03:41:25 Patient: Marla Harmon Procedure Summary Date: 12/16/22 [...] No apparent complicationsFall [place] [address]-2Wujfebmgzyffbn Postoperative evaluation and management qehlCH4222-90-68M06:41:30Anesthesio logy Postoperative evaluation and management noteTXT1.2.840.598770.1.13.104.2.7. 2.750100|[id number] for patient blqn26745-0Npfpkbdc operation noteLNAN-ANESTHESIOLOGY ANESTHESIOLOGISTAN-ANESTHESIOLOGY ANESTHESIOLOGIST[address] Iy[id number] 9SPQPASKUTPDVLEEJOFIWOQ4595-74-30I2 1:41:301.2.840.989324.1.72.3.15|1.2 .840.404995.1.13.104.2.7.2.727879_1 [id number] AN-ANESTHESIOLOGY ANESTHESIOLOGIST [facility] 2022-12-16 10:16:16 5010-20-21K57:16:16 DELIVERY BY SPONTANEOUS VAGINAL DELIVERYDelivery Date: 12/16/2022 [...] present for and supervised the entire procedure(s). 71717-4Mgukt and delivery summary [id number], Sangeeta1.2.840.791534.1.13.104.2.7 .2.324116AnlwAhftrbifMM3307-69-30X8 0:30:35Labor and delivery summary noteTXT1.2.840.500690.1.13.104.2.7. 2.927101|[id number] for patient ejcz76673-1TdnhTDHTSGKRVO[address] Re[id number] 4TSTOCZFTYDVIIJONZHGMMT9588-83-29T5 0:30:351.2.840.836846.1.72.3.15|1.2 .840.933527.1.13.104.2.7.2.727879_1 [id number] [facility] 2022-12-16 08:58:33 5724-48-64M14:58:33 Problem: Intrapartum process (including labor pain)Goal: Absence of or reduction of complications of laborOutcome: Progressing as expectedGoal: Able to cope with painOutcome: Progressing as expectedGoal: Adequate to move to next level of careOutcome: Progressing as expectedGoal: Reduction in pain sensationOutcome: Progressing as expected 15977-6Vcsv of care nmwyIU6850-15-30B77:58:36Plan of care noteTXT1.2.840.128524.1.13.104.2.7. 2.173580|[id number] for patient [id number] M Leyva RNUT[address] Ux[id number] 3RBLKJDRTUCMNLQUWOEGVFA9565-93-75F9 8:58:361.2.840.797990.1.72.3.15|1.2 .840.657243.1.13.104.2.7.2.727879_1 [id number] Debbie Jansen RN [facility] 2022-12-15 23:52:58 9381-72-52J29:52:58 Name/ MRN / Age / Gender:Marla Harmon, [id number] year old female BMI:Estimated body mass index [...] surgeons listed *Procedure: CENTRAL NEURAXIAL BLOCKOR Location: [facility] OUT [facility] OR - OR LOCATIONAnesthesia Preop Eval (physical exam) Anesthesia Preop: Chart Review and Kdfd-fl-FnwgTggcojnurw HistoryAnesthesia History NegativePrevious Anesthetics/AirwaysCardiovascular(+ ) Hypertension PulmonaryNegative Pulmonary ROS(-) Asthma Neuro/MusculoskeletalNegative Neuro/Musculosketal ROS(+) Obesity GI/HepaticNegative GI/Hepatic ROS HematologyNegative Hematology ROSComments: HGB (g/dL) Date Value 12/15/2022 11.5 (L) 12/15/22 1629 PLT 290 RenalNegative Renal ROSComments: K (mmol/L) Date Value 06/20/2017 3.9 CREATININE (mg/dL) Date Value 06/20/2017 0.60 Skin(+) Current IV access Endo/Other Negative Endo/Other ROSComments: No results found for: "AQBMLKM9R" Other OB/GYNComments: 21 year old at 39w0d by kendall(14) who presents for sIOL.?sIOL- Denies VB, LOF, Ctx, DFM- SVE: 2 / 25% / -3- Fowlkes: quiescent- Plan: IOL w/ FB and pitocin ?GBS positive- PCN intrapartum ?Hx Trich- positive 05/2022, s/p tx - BOB negative ?Antepartum course reviewed- 1 h 75, sero negative, Rimmune, VZVimmune, B positive/IAT negative, GBS positive, Pap NILM 03/16/20- H/H, plt: 10.1 / 31.0, 253 on 11/23/22- [facility]?Fetus- Presentation on admission: cephalic - anterior placenta - EFW: 3404 g, 47%tile- FHT reactive and reassuring- Normal anatomy scan PediatricPediatric N/A NeonatalNeonatal N/A Preoperative Medication InstructionsContinue taking all prescribed medications except:SONIYA inhibitors, ARBs, diuretics, all oral diabetes medicationsAnticoagulant Therapy: Defer to surgeonsInsulin: Take 1/2 dose the night prior to surgery. Hold on DOS. Phentermine: Alert [facility] anesthesiologistSGLT2 Inhibitors: "gliflozins" to be held for [...] routine analgesia & antiemeticsRecovery Plan: LDRAdditional comments: 78199-5Zadwriorfccbfq Preoperative evaluation and management pawwJG5819-76-14L08:46:27Anesthesio logy Preoperative evaluation and management noteTXT1.2.840.668272.1.13.104.2.7. 2.471601|[id number] for patient bcxx51311-6Rhdldrxe operation noteLNAN-ANESTHESIOLOGY ANESTHESIOLOGISTAN-ANESTHESIOLOGY ANESTHESIOLOGIST[address] Tq[id number] 5EHUVOHRXNAJHHCGYIYQSJN6986-62-12U6 6:46:271.2.840.220869.1.72.3.15|1.2 .840.606001.1.13.104.2.7.2.727879_1 [id number] AN-ANESTHESIOLOGY ANESTHESIOLOGIST [facility] 2022-12-15 18:49:22 8311-02-77Q73:49:22 Problem: Intrapartum process (including labor pain)Goal: Absence of or reduction of complications of laborOutcome: Progressing as expectedGoal: Able to cope with painOutcome: Progressing as expectedGoal: Adequate to move to next level of careOutcome: Progressing as expectedGoal: Reduction in pain sensationOutcome: Progressing as expected 94923-3Wpew of care uigzSR6931-82-76Q36:49:26Plan of care noteTXT1.2.840.140025.1.13.104.2.7. 2.148699|[id number] for patient [id number] 5GNDZQPCDXBAKBCOPYZSTZO0631-52-11A4 8:49:261.2.840.284792.1.72.3.15|1.2 .840.134829.1.13.104.2.7.2.727879_1 [id number] [facility] 2022-12-15 15:42:58 0150-33-58K88:42:58 Problem: Intrapartum process (including labor pain)Goal: Absence of or reduction of complications of laborOutcome: Progressing as expectedGoal: Able to cope with painOutcome: Progressing as expectedGoal: Adequate to move to next level of careOutcome: Progressing as expectedGoal: Reduction in pain sensationOutcome: Progressing as expected 32497-0Lmwq of care obglVJ1672-66-02C43:43:15Plan of care noteTXT1.2.840.874037.1.13.104.2.7. 2.664718|[id number] for patient [id number] 9IEWFFMTGSJUVXUGMGYAOUB8491-50-31E9 5:43:151.2.840.483421.1.72.3.15|1.2 .840.072573.1.13.104.2.7.2.727879_1 [id number] [facility]
[2023-10-25 11:26] LABS: INFLUENZA A NAA NEGATIVE (NEGATIVE); RESPIRATORY SYNCYTIAL VIR NAA NEGATIVE (NEGATIVE); SARS-COV-2 RT PCR NEGATIVE (NEGATIVE)
--- NOTE | 2023-10-25 12:19 | EDPHYS ---
Physician Documentation [facility] Name: Marla Harmon Age: 22 yrs Sex: Female : 2000 Arrival Date: 10/25/2023 Time: 09:53 Bed 10 Private MD: ED Physician Parvez Sheth HPI: 10/24 12:14 This 22 yrs old Female presents to ER via Ambulatory with complaints of Flu roni Symptoms. 12:14 The patient presents to the emergency department with nausea, vomiting, diarrhea, that roni is intermittent. Onset: The symptoms/episode began/occurred today, yesterday. Possible causes: unknown. The symptoms are aggravated by nothing. The symptoms are alleviated by nothing. Associated signs and symptoms: Pertinent positives: nausea, vomiting. Severity of symptoms: At their worst the symptoms were mild moderate in the emergency department the symptoms are unchanged. The patient has experienced similar episodes in the past, a few times. 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 - Infectious Disease History:: Denies. - Social history:: Smoking status: . ROS: 12:16 Constitutional: Negative for fever, chills, and weight loss, Eyes: Negative for injury, roni pain, redness, and discharge, ENT: Negative for injury, pain, and discharge, Neck: Negative for injury, pain, and swelling, Cardiovascular: Negative for chest pain, palpitations, and edema, Respiratory: Negative for shortness of breath, cough, wheezing, and pleuritic chest pain, Back: Negative for injury and pain, : Negative for injury, bleeding, discharge, and swelling, MS/Extremity: Negative for injury and deformity, Skin: Negative for injury, rash, and discoloration, Psych: Negative for depression, anxiety, suicide ideation, homicidal ideation, and hallucinations, Allergy/Immunology: Negative for hives, rash, and allergies, Endocrine: Negative for neck swelling, polydipsia, polyuria, polyphagia, and marked weight changes, Hematologic/Lymphatic: Negative for swollen nodes, abnormal bleeding, and unusual bruising, 12:16 Abdomen/GI: Positive for nausea and vomiting, diarrhea, 12:16 Neuro: Positive for headache, Exam: 12:16 Constitutional: This is a well developed, well nourished patient who is awake, alert, roni and in no acute distress. Head/Face: Normocephalic, atraumatic. Eyes: Pupils equal round and reactive to light, extra-ocular motions intact. Lids and lashes normal. Conjunctiva and sclera are non-icteric and not injected. Cornea within normal limits. Periorbital areas with no swelling, redness, or edema. ENT: Nares patent. No nasal discharge, no septal abnormalities noted. Tympanic membranes are normal and external auditory canals are clear. Oropharynx with no redness, swelling, or masses, exudates, or evidence of obstruction, uvula midline. Mucous membranes moist. Neck: Trachea midline, no thyromegaly or masses palpated, and no cervical lymphadenopathy. Supple, full range of motion without nuchal rigidity, or vertebral point tenderness. No Meningismus. Chest/axilla: Normal chest wall appearance and motion. Nontender with no deformity. No lesions are appreciated. Cardiovascular: Regular rate and rhythm with a normal S1 and S2. No gallops, murmurs, or rubs. Normal PMI, no JVD. No pulse deficits. Respiratory: Lungs have equal breath sounds bilaterally, clear to auscultation and percussion. No rales, rhonchi or wheezes noted. No increased work of breathing, no retractions or nasal flaring. Abdomen/GI: Soft, non-tender, with normal bowel sounds. No distension or tympany. No guarding or rebound. No evidence of tenderness throughout. Back: No spinal tenderness. No costovertebral tenderness. Full range of motion. Female : Normal external genitalia. Skin: Warm, dry with normal turgor. Normal color with no rashes, no lesions, and no evidence of cellulitis. MS/ Extremity: Pulses equal, no cyanosis. Neurovascular intact. Full, normal range of motion. Neuro: Awake and alert, GCS 15, oriented to person, place, time, and situation. Cranial nerves II-XII grossly intact. Motor strength 5/5 in all extremities. Sensory grossly intact. Cerebellar exam normal. Normal gait. Psych: Awake, alert, with orientation to person, place and time. Behavior, mood, and affect are within normal limits. Vital Signs: 10:22 BP 142 / 91; Pulse 120; Resp 18; Temp 98.9; Pulse Ox 97% ; Weight 111.13 kg; Height 5 ll1 ft. 9 in. ; Pain 10/10; 11:27 BP 106 / 69; Pulse 105; Resp 17; Pulse Ox 97% on R/A; Pain 10/10; ll1 12:48 BP 112 / 71; Pulse 99; Resp 18; Temp 98.7; Pulse Ox 98% ; me1 10:22 Body Mass Index 36.18 (111.13 kg, 175.26 cm) ll1 10:22 Pain Scale: Adult ll1 11:27 Pain Scale: Adult ll1 [place] Coma Score: 12:17 Eye Response: spontaneous(4). Motor Response: obeys commands(6). Verbal Response: roni oriented(5). Total: 15. MDM: 10:05 Patient medically screened. roni 12:17 Differential diagnosis: Nonspecific abd pain, gastritis, diverticulitis, viral roni gastroenteritis, gastroenteritis. Data reviewed: vital signs, nurses notes, lab test result(s), Flu: negative. Consideration of Admission/Observation Escalation of care including admission/observation considered. I considered the following discharge prescriptions or medication management in the emergency department Medications were administered in the Emergency Department. See MAR. Test considered but Not performed: Labs: no cbc, comp met. Care significantly affected by the following chronic conditions: Obesity. 10/24 10:06 Order name: COVID-19/FLU A+B/RSV; Complete Time: 11:37 roni 10/24 12:14 Order name: PO challenge; Complete Time: 12:37 roni Administered Medications: 12:39 Drug: Ondansetron Oral Disintegrating Tablet Oral Disintegrating Tablet 4 mg PO once me1 Route: PO; 12:50 Follow up: Response: No adverse reaction; Nausea is decreased me1 12:39 Drug: Acetaminophen PO 1000 mg PO once Route: PO; me1 12:49 Follow up: Response: No adverse reaction; Pain is decreased me1 Disposition Summary: 10/25/23 12:18 Discharge Ordered Notes: Location: Home roni Problem: new roni Symptoms: have improved roni Condition: Stable roni Diagnosis - Vomiting roni - Diarrhea, unspecified roni - Headache roni Followup: roni - With: Private Physician - When: 2 - 3 days - Reason: Recheck today's complaints, Continuance of care, Re-evaluation by your physician Discharge Instructions: - Discharge Summary Sheet roni - Food Choices to Help Relieve Diarrhea, Adult roni - Diarrhea, Adult roni - General Headache Without Cause roni - General Headache Without Cause, Jzqh-gs-Yvpp roni - Vomiting, Adult roni Forms: - Medication Reconciliation Form roni - Antibiotic Education roni - Prescription Opioid Use roni - Patient Portal Instructions roni - Leadership Thank You Letter [facility] Prescriptions: - ondansetron 8 mg Oral Tablet,disintegrating - take 1 tablet ORAL route every 8 to 12 hours for 5 days as needed for nausea roni and vomiting; 20 tablet; Refills: 0, Product Selection Permitted Signatures: Dispatcher [employer] Parvez Hobson MD MD cha Lewis, Lynsay RN RN ll1 Vianca Asher RN RN me1
--- NOTE | 2023-10-25 12:19 | ER ---
Nurse's Notes [facility] Name: Marla Harmon Age: 22 yrs Sex: Female : 2000 Arrival Date: 10/25/2023 Time: 09:53 Bed 10 Private MD: Diagnosis: Vomiting;Diarrhea, unspecified;Headache Presentation: 10/24 10:18 Chief complaint: Patient states: N/V/D started this morning. Family is also sick. ll1 Coronavirus screen: Client denies travel out of the [place] in the last 14 days. Ebola Screen: Patient denies travel to an Ebola-affected area in the 21 days before illness onset. 10:18 Method Of Arrival: Ambulatory ll1 10:22 Initial Sepsis Screen: Does the patient meet any 2 criteria? No. Patient's initial ll1 sepsis screen is negative. Does the patient have a suspected source of infection? No. Patient's initial sepsis screen is negative. Risk Assessment: Do you want to hurt yourself or someone else? Patient reports no desire to harm self or others. Onset of symptoms was October 25, 2023. 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 - Infectious Disease History:: Denies. - Social history:: Smoking status: . Screenin:37 [facility] ED Fall Risk Assessment (Adult) History of falling in the last 3 months, ll1 including since admission No falls in past 3 months (0 pts) Confusion or Disorientation No (0 pts) Intoxicated or Sedated No (0 pts) Impaired Gait No (0 pts) Mobility Assist Device Used No (0 pt) Altered Elimination No (0 pt) Score/Fall Risk Level 0 - 2 = Low Risk Maintained a safe environment, Hourly rounding (assess needs \T\ fall precautionary measures) done. Abuse screen: Denies threats or abuse. Nutritional screening: No deficits noted. Tuberculosis screening: No symptoms or risk factors identified. Assessment: 10:35 General: Appears uncomfortable, ill, Behavior is calm, cooperative, appropriate for ll1 age. Pain: Complains of pain in head Pain currently is 10 out of 10 on a pain scale. Quality of pain is described as aching, throbbing. Neuro: Reports dizziness, weakness. Neuro: Reports headache. GI: Reports diarrhea, nausea, vomiting. 11:28 Reassessment: No changes from previously documented assessment. Patient and/or family ll1 updated on plan of care and expected duration. Pain level reassessed. Patient is alert, oriented x 3, equal unlabored respirations, skin warm/dry/pink. Vital Signs: 10:22 BP 142 / 91; Pulse 120; Resp 18; Temp 98.9; Pulse Ox 97% ; Weight 111.13 kg; Height 5 ll1 ft. 9 in. ; Pain 10/10; 11:27 BP 106 / 69; Pulse 105; Resp 17; Pulse Ox 97% on R/A; Pain 10/10; ll1 12:48 BP 112 / 71; Pulse 99; Resp 18; Temp 98.7; Pulse Ox 98% ; me1 10:22 Body Mass Index 36.18 (111.13 kg, 175.26 cm) ll1 10:22 Pain Scale: Adult ll1 11:27 Pain Scale: Adult ll1 [place] Coma Score: 12:17 Eye Response: spontaneous(4). Motor Response: obeys commands(6). Verbal Response: roni oriented(5). Total: 15. ED Course: 10:04 Patient arrived in ED. mg5 10:05 Parvez Sheth MD is Attending Physician. roni 10:15 Arm band placed on. ll1 10:23 Triage completed. ll1 10:26 Patient has correct armband on for positive identification. Call light in reach. 1 Provided Education on: ER procedures and process. 10:27 COVID swab sent to lab. Flu and/or RSV swab sent to lab. ll1 10:36 COVID-19/FLU A+B/RSV Sent. ll1 12:49 No provider procedures requiring assistance completed. Patient did not have IV access me1 during this emergency room visit. Administered Medications: 12:39 Drug: Ondansetron Oral Disintegrating Tablet Oral Disintegrating Tablet 4 mg PO once me1 Route: PO; 12:50 Follow up: Response: No adverse reaction; Nausea is decreased me1 12:39 Drug: Acetaminophen PO 1000 mg PO once Route: PO; ks1 12:49 Follow up: Response: No adverse reaction; Pain is decreased me1 Medication: 10:38 VIS not applicable for this client. ll1 Outcome: 12:18 Discharge ordered by . roni 12:49 Discharged to home ambulatory, ks1 12:49 Condition: stable 12:49 Discharge instructions given to patient, Instructed on discharge instructions, follow up and referral plans. medication usage, Demonstrated understanding of instructions, follow-up care, medications, Prescriptions given X 1, 12:49 Patient left the ED. ks1 Signatures: Parvez Sheth MD MD cha Lewis, Lynsay, RN RN ll1 Vianca Asher RN RN me1 Nel Farias mg5 Corrections: (The following items were deleted from the chart) 10:25 10:22 BP 142 / 91; Resp 18bpm; Pulse Ox 97%; EtCO2 97 mmHg; Temp 98.9F; 111.13 kg; ll1 Height 5 ft. 9 in.; BMI: 36.1; Pain 10/10, Adult; ll1 10:25 10:22 BP 142 / 91; Pulse 125bpm; Resp 18bpm; Pulse Ox 97%; EtCO2 97 mmHg; Temp 98.9F; ll1 111.13 kg; Height 5 ft. 9 in.; BMI: 36.1; Pain 10/10, Adult; ll1 10:35 10:22 BP 142 / 91; Pulse 125bpm; Resp 18bpm; Pulse Ox 97%; Temp 98.9F; 111.13 kg; ll1 Height 5 ft. 9 in.; BMI: 36.1; Pain 10/10, Adult; ll1
[2023-10-25] MEDS ORDERED: ACETAMINOPHEN 500 MG TAB ONE (12:36)
[2023-10-25] MEDS ORDERED: ONDANSETRON 4 MG (ODT) TAB ONE (12:36)
[2023-10-26 18:59] VITALS: BP 112/71; TEMP 98.7; O2SAT 98
== END 2023-10-25 12:49 | disposition home or self-care (01) ==
LOC: ER 09:53
DX: R11.2 Nausea with vomiting, unspecified (principal); R19.7 Diarrhea, unspecified; R51.9 Headache, unspecified; Z11.52 Encounter for screening for COVID-19
CPT/HCPCS: 0241U; 99284; Q0162

== ENCOUNTER 2024-01-10 09:20 | Emergency (ER) | payer SELFPAY ==
--- OUTSIDE RECORDS SUMMARY | 2024-01-10 09:29 | XMS REPORT | Continuity of Care Document ---
Author Name Unknown Address [address] [facility] [address] [place] [address] [facility] Address [address] [facility] [place] [address] Care Team Providers Care Pumping Supervisor Name Role Phone LYUDMILA MONTOYA Primary Care Physician UnaSIMONA Ware Attending Clinician UnavailSimona Gresham CNM Attending Clinician Doctor Unassigned, [place] Attending Clinician U navailLYUDMILA Treviño Attending Clinician Unavail able Jan WHLyudmila CALVO Attending Clinician + KARRI DAY Attending Clinician Karri Downs MD Attending Clinician + Abimbola Zimmerman MD Attending Clinician [phone] Winifred Taylor MD Attending Clinician [phone] MARIA G JASSO Attending Clinician Unavailable LUCILLE FOSTER Attending Clinician LUCILLE Rowan Attending Clinician Lizzeth madden 1, Pea-[facility] Room Attending Clinician UnavailParvez Coles DO Attending Clinician [phone] PARVEZ WEAVER Attending Clinician Unavailable Ultrasound, Ang-Mfm Attending Clinician UnavailMadeline Rai MD Attending Clinician [phone] MADELINE GARCIA Attending Clinician Unavailable MADELINE GARCIA Attending Clinician Unavailable Lab, Ang-Rmchp Attending Clinician Unavailable Lab, Pea-Rmchp Attending Clinician Unavailable Ivana MSN, Tonya Rivers Attending Clinician [phone] Provider, Ang-Rmchp Temp Attending Clinician Jessica vailable UNKNOWN, ATTENDING Attending Clinician Unavailab vivek Woods OFFSET PLATE PREPARATION SUPERVISOR, Hellen Cortez Attending Clinician Unava ilable Ho RUBBER MOULDING MACHINE OPERATOR, Rachana Cortez Attending Clinician Unava ilable Brodie PAC, K Kacie Attending Clinician [phone] Tye Travis DO Attending Clinician [phone] HELLEN WOODS Attending Clinician Unavailab HOUSTON Chun Attending Clinician Unavailabl Rosalina Butcher DO Attending Clinician [phone] [place] Ramachandran Attending Clinician [phone] KARRI DAY Admitting Clinician Unav luis armando Day MD, Karri Gamboa Admitting Clinician + LUCILLE FOSTER Admitting Clinician Lizzeth madden Payers Payer Name Policy Type Policy Number Effective Date Expirati on Date Source [facility] [id number] 2023 00:00:00 [facility]MERLY [facility] [id number] 2022 00:00:00 MEDICAID PENDING PENDING 2020 00:00:00 Problems Condition Name Condition Details Condition Category Status Onset Date Resolution Date Last Treatment Date Treating Clinician Comments Source Engages in vaping Engages in vaping Disease Active 2022-04 00:00: 00 [facility] Elevated blood pressure reading without diagnosis of hypertensi on Elevated blood pressure reading without diagnosis of hypertensi on Disease Active 2022-04 00:00: 00 [facility] Anemia, Anemia, Disease Active 2022-04 0 00:00: 00 [facility] 39 weeks gestation of 39 weeks gestation of Disease Active 9-14 00:00: 00 [facility] Obesity (BMI 30-39.9) Obesity (BMI 30-39.9) Disease Active 8-28 00:00: 00 [facility] Irregular uterine contractio ns Irregular uterine contractio ns Disease Active 8-28 00:00: 00 [facility] GBS (group B Streptococ cus carrier), +RV culture, 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 Pending bob [facility] UTI in UTI in Disease Active 1 00:00: 00 Overview: Formattin g of this note might be different from the original. Pending bbo [facility] Supervisio n of high-risk Supervisio n of high-risk Disease Active - 00:00: 00 [facility] Multiparit y Multiparit y Disease Active 1-25 00:00: 00 [facility] History of gestationa l hypertensi on History of gestationa l hypertensi on Disease Active 1-25 00:00: 00 [facility] Other general counseling and advice for contracept rianna management Other general counseling and advice for contracept rianna management Disease Active 2-23 00:00: 00 [facility] Lump or mass in breast Lump or mass in breast Disease Active 2-23 00:00: 00 [facility] Declines flu vaccine Declines flu vaccine Disease Active 2019-04 00:00: 00 [facility] Menorrhagi a with regular cycle Menorrhagi a with regular cycle Disease Active 2019-04 00:00: 00 [facility] Class 3 severe obesity with body mass index (BMI) of 40.0 to 44.9 in adult, unspecifie d obesity type, unspecifie d whether serious comorbidit y present Class 3 severe obesity with body mass index (BMI) of 40.0 to 44.9 in adult, unspecifie d obesity type, unspecifie d whether serious comorbidit y present Disease Active 2019-04 00:00: 00 [facility] Breakthrou gh bleeding on Nexplanon Breakthrou gh bleeding on Nexplanon Disease Active 08-29 00:00: 00 [facility] Chlamydia trachomati s infection of lower genitourin kaycee sites Chlamydia trachomati s infection of lower genitourin kaycee sites Disease Active 08-29 00:00: 00 Overview: Formattin g of this note might be different from the original. BOB neg [facility] Nexplanon removal Nexplanon removal Disease Active 07-19 00:00: 00 [facility] Obesity (BMI 30-39.9) Obesity (BMI 30-39.9) Disease Active 07-03 00:00: 00 [facility] Obesity in Obesity in Disease Active 07-03 00:00: 00 [facility] Screen for STD (sexually transmitte d disease) Screen for STD (sexually transmitte d disease) Disease Active 07-03 00:00: 00 [facility] Allergies, Adverse Reactions, Alerts Allergy Name Allergy Type Status Severity Reaction(s) Onset Date Inactive Date Treating Clinician Comments Source NO KNOWN ALLERGIE S Drug Class Active [facility] Social History Social Habit Start Date Stop Date Quantity Comments Source ASSERTION 2022-03-31 00:00:[address] [facility] Gender identity [facility] History of Social function 2023-03-08 00:00:00 2023-03-08 00:00:[address] [facility] Cigarettes smoked current (pack per day) - Reported 2023-03-08 00:00:00 2023-03-08 00:00:[address] [facility] Tobacco Comment 2023-03-08 00:00:00 2023-03-08 00:00:[address] [facility] Alcohol intake 2023-03-08 00:00:00 2023-03-08 00:00:00 Current drinker of alcohol (finding) [facility] Tobacco use and exposure 2023-03-08 00:00:00 2023-03-08 00:00:00 User of smokeless tobacco [facility] Alcohol Comment 2023-03-08 00:00:00 2023-03-08 00:00:[address] [facility] Exposure to SARS-CoV-2 (event) 2022-08-07 00:00:00 2022-08-17 10:24:[address] [facility] History of tobacco use 2016-07-03 00:00:00 2022-04-16 00:00:[address] [facility] History SDOH Alcohol Frequency 2020-03-16 00:00:00 2020-03-16 00:00:[address] [facility] History SDOH Alcohol Std Drinks 2020-03-16 00:00:00 2020-03-16 00:00:[address] [facility] History SDOH Alcohol Binge 2020-03-16 00:00:00 2020-03-16 00:00:[address] [facility] Sex Assigned At 2000 00:00:00 2000 00:00:[address] [facility] Smoking Status Start Date Stop Date Source Ex-smoker 2023-03-08 00:00:00 2023[facility]03-08 [facility] 2020-03-16 00:00:[address] [facility] Medications Ordered Medication Name Filled Medication Name Start Date Stop Date Current Medication? Ordering Clinician Indication Dosage Frequency Signature (SIG) Comments Components Source etonogestre L (NEXPLANON) implant 68 mg 2022-04 17:30: 00 03-08 17:30 :00 No [id number] 68mg [facility] ibuprofen 600 mg tablet 12-17 00:00: 00 03-08 00:00 :00 No [id number] 600mg Take 1 tablet by mouth every 6 (six) hours as needed (Pain). Take with food or milk. [facility] docusate 100 mg capsule 12-17 00:00: 00 01-07 00:00 :00 No [id number] 200mg Take 2 capsules by mouth once daily as needed for Constipati on. [facility] rho(D) immune globulin (RHOGAM) syringe 300 mcg 12-16 19:33: 55 Yes 300ug 300 mcg, Intramuscu lar, ONCE, For 1 dose, Conditiona l, Routine [facility] ibuprofen (IBU) tablet 600 mg 12-16 19:33: 51 Yes 600mg 600 mg, Oral, Q6HPRN, Starting on Mon12/16/22 at 1433, Until Discontinu ed, Routine, Pain (scale 4-6) [facility] acetaminoph en (TYLENOL) tablet 650 mg 12-16 19:33: 51 Yes 650mg 650 mg, Oral, Q6HPRN, Starting on Mon12/16/22 at 1433, Until Discontinu ed, Routine, Pain (scale 1-3) [facility] diphenhydrA MINE (BENADRYL) tablet 25 mg 12-16 19:33: 51 Yes 25mg 25 mg, Oral, Q6HPRN, Starting on Mon12/16/22 at 1433, Until Discontinu ed, Routine, Sleep, Itching [facility] ondansetron (ZOFRAN (PF)) injection 4 mg 12-16 19:33: 51 Yes 4mg 4 mg, Slow IV Push, Q8HPRN, Starting on Mon12/16/22 at 1433, Until Discontinu ed, Routine, Nausea and Vomiting (N/V) [facility] simethicone (GAS RELIEF (SIMETHICON E)) chewable tablet 160 mg 12-16 19:33: 51 Yes 160mg 160 mg, Oral, PC+HSPRN, Starting on Mon12/16/22 at 1433, Until Discontinu ed, Routine, Gas [facility] docusate (COLACE) capsule 200 mg 12-16 19:33: 51 Yes 200mg 200 mg, Oral, QDAILYPRN, Starting on Mon12/16/22 at 1433, Until Discontinu ed, Routine, Constipati on [facility] magnesium hydroxide (MILK OF MAGNESIA) 400 mg/5 mL suspension 30 mL 12-16 19:33: 51 Yes 30mL 30 mL, Oral, QDAILYPRN, Starting on Mon12/16/22 at 1433, Until Discontinu ed, Routine, Constipati on [facility] benzocaine- menthol (DERMOPLAST ) 20-0.5 % topical spray 12-16 19:33: 51 Yes Topical, PRN, Starting on Mon12/16/22 at 1433, Until Discontinu ed, Routine, Perineum discomfort [facility] miSOPROStoL (CYTOTEC) tablet 1,000 mcg 12-16 16:15: 00 12-16 14:45 :00 No 1000ug 1,000 mcg, Rectal, ONCE, 1 dose, On Mon12/16/22 at 1115, Routine [facility] carboprost (HEMABATE) injection 250 mcg 12-16 14:55: 00 12-16 14:33 :00 No 250ug 250 mcg, Intramuscu lar, ONCE, 1 dose, On Mon12/16/22 at 1000, Routine [facility] methylergon ovine (METHERGINE ) injection 0.2 mg 12-16 14:54: 00 12-16 14:22 :00 No .2mg 0.2 mg, Intramuscu lar, ONCE NOW, 1 dose, On Mon12/16/22 at 1000, Routine [facility] diphenoxyla te-atropine (LOMOTIL) 2.5-0.025 mg tablet 1 tablet 12-16 14:29: 25 Yes 1{tbl} 1 tablet, Oral, Q6HPRN, Starting on Mon12/16/22 at 0929, Until Discontinu ed, Routine, diarrhea [facility] ibuprofen (IBU) tablet 600 mg 12-16 14:09: 58 12-16 19:33 :54 No 600mg 600 mg, Oral, Q6HPRN, Starting on Mon12/16/22 at 0909, Until Mon12/16/22 at 1433, Routine, Pain (scale 1-3) [facility] oxytocin (PITOCIN) 30 units in NS 500 mL IV infusion 12-16 14:09: 48 12-16 19:33 :54 No 300mL/h 300 mL/hr, IV Infusion, SEE-INSTRU CTIONS, Starting on Mon12/16/[address] at 300 mL/hr for 1 hr then 150 mL/hr for 1 hr. For post delivery uterotonic .
[facility] amnioinfusi on IV infusion via GRAVITY 0.9 [...] until the liter is complete.& nbsp;&nbsp ;Notify Order Desk Clerk if uterine resting tone exceeds 25 mmHg at any time during the amnioinfus ion. Obst etrics (GARRETT) Aminoinfus ion Orders
[facility] ondansetron (ZOFRAN (PF)) injection 4 mg 12-16 08:15: 00 12-16 14:01 :00 No 4mg 4 mg, Slow IV Push, ONCE, On Mon12/16/22 at 0315, For 1 dose
Do ses of ondansetro n 16 mg and above need to be administer ed via IV piggyback. For Dose >=24mg ECG monitoring is advisable.
[facility] ropivacaine 0.2 % (NAROPIN (PF)) epidural infusion 12-16 05:52: 00 12-16 16:22 :45 No Epidural, CONTINUOUS PRN, Starting on Mon12/16/22 at 0052, Until Discontinu ed, Routine, Intra-op [facility] lidocaine-e pinephrine (XYLOCAINE W/EPINEPHRI NE) 1.5 %-1:200,000 injection 12-16 05:49: 00 12-16 16:22 :45 No Intraderma l, ONCE INTRA PROCEDURE, Starting on Mon12/16/22 at 0049, Until Discontinu ed, Routine, Intra-op [facility] sodium citrate-cit rickey acid (BICITRA) 500-334 mg/5 mL solution 30 mL 12-16 04:46: 41 12-16 05:26 :00 No 30mL 30 mL, Oral, PRE-PROCED URE ONCE, 1 dose, Starting on Mon12/15/22 at 2346, Until Mon12/16/22 at 0026, Routine, Surgery/Pr ocedure [facility] lactated ringers IV infusion 500 mL 12-16 04:46: 41 12-16 05:11 :19 No 500mL at 999 mL/hr, 500 mL, IV Infusion, PRN - SEE INSTRUCTIO NS, 1 dose, Starting on Mon12/15/22 at 2346, Until Mon12/16/22 at 0011, Routine [facility] oxytocin (PITOCIN) 30 units in NS 500 mL IV infusion 12-15 21:03: 38 12-16 19:33 :54 No 2mU/min at 2-40 mL/hr, IV Infusion, TITRATE, Starting on Mon12/15/22 at 1603, Until Mon12/16/22 at 1433, JERONIMO [facility] D5W-LR IV infusion 1,000 mL 12-15 21:01: 30 12-16 19:33 :54 No 1000mL at 1-125 mL/hr, IV Infusion, TITRATE, Starting on Mon12/15/22 at 1601, Until Mon12/16/22 at 1433, Routine [facility] ascorbic acid, vitamin C, 500 mg tablet 09-26 00:00: 00 01-07 00:00 :00 No [id number] 500mg Take 1 tablet by mouth in the morning and 1 tablet at noon and 1 tablet in the evening. [facility] ferrous sulfate 325 mg (65 mg iron) tablet 09-26 00:00: 00 12-17 00:00 :00 No [id number] 325mg Take 1 tablet by mouth in the morning and 1 tablet in the evening. [facility] metroNIDAZO LE 500 mg tablet 05-10 00:00: 00 05-11 05:59 :00 No [id number] 2000mg Take 4 tablets by mouth once now for 1 dose. [facility] ampicillin 500 mg capsule 05-02 00:00: 00 05-13 05:59 :00 No [id number] 500mg Take 1 capsule by mouth 4 (four) times daily for 10 days. [facility] multivitami n ( VITAMIN) tablet 04-27 00:00: 00 Yes [id number] 1{tbl} Take 1 tablet by mouth in the morning. [facility] multivitami n ( VITAMIN) tablet 04-27 00:00: 00 03-08 00:00 :00 No [id number] 1{tbl} Take 1 tablet by mouth in the morning. [facility] proMETHazin e 25 mg tablet 04-27 00:00: 00 01-07 00:00 :00 No [id number] 25mg Take 1 tablet by mouth every 6 (six) hours as needed for Nausea and Vomiting (N/V). [facility] Nitrofurant oin&Nit. Macrocryst 100 mg capsule 04-17 00:00: 00 11-23 00:00 :00 No TAKE 1 CAPSULE BY MOUTH EVERY 12 HOURS FOR 7 DAYS [facility] No known medications 2021-04 10:28: 59 No No known medication s [facility] doxycycline hyclate 100 mg capsule 2021-04 00:00: 00 02-19 05:59 :00 No [id number] 100mg Take 1 capsule by mouth every 12 (twelve) hours for 7 days. [facility] azithromyci n (ZITHROMAX) 500 mg tablet 2021-04 00:00: 00 02-11 05:59 :00 No [id number] 04 1000mg Take 2 tablets by mouth once now for 1 dose. [facility] No known medications 07-01 16:12: 46 No [facility] azithromyci n 500 mg tablet 08-31 00:00: 00 05-26 00:00 :00 No TAKE 2 TABLETS BY MOUTH ONCE NOW FOR 1 DOSE [facility] Immunizations Ordered Immunization Name Filled Immunization Name Date Status Comments Source TDAP 2022-10-07 00:00:[address] [facility] TDAP 2022-10-07 00:00:[address] [facility] TDAP 2022-10-07 00:00:[address] [facility] TDAP 2022-10-07 00:00:[address] [facility] TDAP 2022-10-07 00:00:[address] [facility] TDAP 2022-10-07 00:00:[address] [facility] TDAP 2022-10-07 00:00:[address] [facility] TDAP 2022-10-07 00:00:[address] [facility] TDAP 2022-10-07 00:00:[address] [facility] TDAP 2022-10-07 00:00:[address] [facility] TDAP 2022-10-07 00:00:[address] [facility] HPV9 2021-05-26 00:00:[address] [facility] HPV9 2021-05-26 00:00:[address] [facility] HPV9 2021-05-26 00:00:00 Completed [facility] HPV9 2021-05-26 00:00:00 Completed [facility] HPV9 2021-05-26 00:00:00 Completed [facility] HPV9 2021-05-26 00:00:00 Completed [facility] HPV9 2021-05-26 00:00:00 Completed [facility] HPV9 2021-05-26 00:00:00 Completed [facility] HPV9 2021-05-26 00:00:00 Completed [facility] HPV9 2021-05-26 00:00:00 Completed [facility] HPV9 2021-05-26 00:00:00 Completed [facility] HPV9 2021-05-26 00:00:00 Completed [facility] HPV9 2021-05-26 00:00:00 Completed [facility] HPV9 2021-05-26 00:00:00 Completed [facility] HPV9 2021-05-26 00:00:00 Completed [facility] HPV9 2021-05-26 00:00:00 Completed [facility] HPV9 2021-05-26 00:00:00 Completed [facility] HPV9 2021-05-26 00:00:00 Completed [facility] HPV9 2021-05-26 00:00:00 Completed [facility] HPV9 2021-05-26 00:00:00 Completed [facility] HPV9 2021-05-26 00:00:00 Completed [facility] HPV9 2021-05-26 00:00:00 Completed [facility] HPV9 2021-05-26 00:00:00 Completed [facility] HPV9 2021-05-26 00:00:00 Completed [facility] HPV9 2021-05-26 00:00:00 Completed [facility] HPV9 2021-05-26 00:00:00 Completed [facility] HPV9 2021-05-26 00:00:00 Completed [facility] HPV9 2021-05-26 00:00:00 Completed [facility] HPV9 2021-05-26 00:00:[address] [facility] HPV9 2021-05-26 00:00:[address] [facility] HPV9 2021-05-26 00:00:[address] [facility] HPV9 2021-05-26 00:00:[address] [facility] HPV9 2021-05-26 00:00:[address] [facility] HPV9 2021-05-26 00:00:[address] [facility] HPV9 2021-05-26 00:00:[address] [facility] HPV9 2021-05-26 00:00:[address] [facility] HPV9 2021-05-26 00:00:[address] [facility] HPV9 2021-05-26 00:00:[address] [facility] HPV9 2021-05-26 00:00:[address] [facility] HPV9 2021-05-26 00:00:[address] [facility] HPV9 2021-05-26 00:00:[address] [facility] HPV9 2021-05-26 00:00:[address] [facility] HPV9 2021-05-26 00:00:[address] [facility] Influenza Virus Vaccine Quad .5 mL IM 6+ MO 2020-03-16 00:00:[address] [facility] Influenza Virus Vaccine Quad .5 mL IM 6+ MO 2020-03-16 00:00:[address] [facility] Influenza Virus Vaccine Quad .5 mL IM 6+ MO 2020-03-16 00:00:[address] [facility] Influenza Virus Vaccine Quad .5 mL IM 6+ MO 2020-03-16 00:00:[address] [facility] Influenza Virus Vaccine Quad .5 mL IM 6+ MO 2020-03-16 00:00:[address] [facility] Influenza Virus Vaccine Quad .5 mL IM 6+ MO 2020-03-16 00:00:[address] [facility] Influenza Virus Vaccine Quad .5 mL IM 6+ MO 2020-03-16 00:00:[address] [facility] Influenza Virus Vaccine Quad .5 mL IM 6+ MO 2020-03-16 00:00:[address] [facility] Influenza Virus Vaccine Quad .5 mL IM 6+ MO 2020-03-16 00:00:[address] [facility] Influenza Virus Vaccine Quad .5 mL IM 6+ MO 2020-03-16 00:00:[address] [facility] Influenza Virus Vaccine Quad .5 mL IM 6+ MO (FLUZONE/FLULAVAL/FL UARIX) 2020-03-16 00:00:[address] [facility] Influenza Virus Vaccine Quad .5 mL IM 6+ MO (FLUZONE/FLULAVAL/FL UARIX) 2020-03-16 00:00:[address] [facility] Influenza Virus Vaccine Quad .5 mL IM 6+ MO (FLUZONE/FLULAVAL/FL UARIX) 2020-03-16 00:00:[address] [facility] Influenza Virus Vaccine Quad .5 mL IM 6+ MO (FLUZONE/FLULAVAL/FL UARIX) 2020-03-16 00:00:[address] [facility] Influenza Virus Vaccine Quad .5 mL IM 6+ MO (FLUZONE/FLULAVAL/FL UARIX) 2020-03-16 00:00:[address] [facility] Influenza Virus Vaccine Quad .5 mL IM 6+ MO (FLUZONE/FLULAVAL/FL UARIX) 2020-03-16 00:00:[address] [facility] Influenza Virus Vaccine Quad .5 mL IM 6+ MO 2020-03-16 00:00:[address] [facility] Influenza Virus Vaccine Quad .5 mL IM 6+ MO 2020-03-16 00:00:[address] [facility] Influenza Virus Vaccine Quad .5 mL IM 6+ MO 2020-03-16 00:00:[address] [facility] Influenza Virus Vaccine Quad .5 mL IM 6+ MO 2020-03-16 00:00:[address] [facility] Influenza Virus Vaccine Quad .5 mL IM 6+ MO 2020-03-16 00:00:[address] [facility] Influenza Virus Vaccine Quad .5 mL IM 6+ MO 2020-03-16 00:00:[address] [facility] Influenza Virus Vaccine Quad .5 mL IM 6+ MO 2020-03-16 00:00:[address] [facility] Influenza Virus Vaccine Quad .5 mL IM 6+ MO 2020-03-16 00:00:[address] [facility] Influenza Virus Vaccine Quad .5 mL IM 6+ MO 2020-03-16 00:00:[address] [facility] Influenza Virus Vaccine Quad .5 mL IM 6+ MO 2020-03-16 00:00:[address] [facility] Influenza Virus Vaccine Quad .5 mL IM 6+ MO 2020-03-16 00:00:[address] [facility] Influenza Virus Vaccine Quad .5 mL IM 6+ MO 2020-03-16 00:00:[address] [facility] Influenza Virus Vaccine Quad .5 mL IM 6+ MO 2020-03-16 00:00:[address] [facility] Influenza Virus Vaccine Quad .5 mL IM 6+ MO 2020-03-16 00:00:[address] [facility] [facility] Influenza Virus Vaccine Quad .5 mL IM 6+ MO 2020-03-16 00:00:[address] [facility] Influenza Virus Vaccine Quad .5 mL IM 6+ MO 2020-03-16 00:00:[address] [facility] Influenza Virus Vaccine Quad .5 mL IM 6+ MO 2020-03-16 00:00:[address] [facility] Influenza Virus Vaccine Quad .5 mL IM 6+ MO 2020-03-16 00:00:[address] [facility] Influenza Virus Vaccine Quad .5 mL IM 6+ MO 2020-03-16 00:00:[address] [facility] Influenza Virus Vaccine Quad .5 mL IM 6+ MO 2020-03-16 00:00:[address] [facility] Influenza Virus Vaccine Quad .5 mL IM 6+ MO 2020-03-16 00:00:[address] [facility] Influenza Virus Vaccine Quad .5 mL IM 6+ MO 2020-03-16 00:00:[address] [facility] Influenza Virus Vaccine Quad .5 mL IM 6+ MO 2020-03-16 00:00:[address] [facility] Influenza Virus Vaccine Quad .5 mL IM 6+ MO 2020-03-16 00:00:[address] [facility] Influenza Virus Vaccine Quad .5 mL IM 6+ MO 2020-03-16 00:00:[address] [facility] Influenza Virus Vaccine Quad .5 mL IM 6+ MO 2020-03-16 00:00:[address] [facility] Influenza Virus Vaccine Quad .5 mL IM 6+ MO 2020-03-16 00:00:00 Completed [facility] HPV9 2018-09-07 00:00:00 Completed [facility] HPV9 2018-09-07 00:00:00 Completed [facility] HPV9 2018-09-07 00:00:00 Completed [facility] HPV9 2018-09-07 00:00:00 Completed [facility] HPV9 2018-09-07 00:00:00 Completed [facility] HPV9 2018-09-07 00:00:00 Completed [facility] HPV9 2018-09-07 00:00:00 Completed [facility] HPV9 2018-09-07 00:00:00 Completed [facility] HPV9 2018-09-07 00:00:00 Completed [facility] HPV9 2018-09-07 00:00:00 Completed [facility] HPV9 2018-09-07 00:00:00 Completed [facility] HPV9 2018-09-07 00:00:00 Completed [facility] HPV9 2018-09-07 00:00:00 Completed [facility] HPV9 2018-09-07 00:00:00 Completed [facility] HPV9 2018-09-07 00:00:00 Completed [facility] HPV9 2018-09-07 00:00:00 Completed [facility] HPV9 2018-09-07 00:00:00 Completed [facility] HPV9 2018-09-07 00:00:00 Completed [facility] HPV9 2018-09-07 00:00:00 Completed [facility] HPV9 2018-09-07 00:00:00 Completed [facility] HPV9 2018-09-07 00:00:00 Completed [facility] HPV9 2018-09-07 00:00:00 Completed [facility] HPV9 2018-09-07 00:00:00 Completed [facility] HPV9 2018-09-07 00:00:00 Completed [facility] HPV9 2018-09-07 00:00:00 Completed [facility] HPV9 2018-09-07 00:00:00 Completed [facility] HPV9 2018-09-07 00:00:00 Completed [facility] HPV9 2018-09-07 00:00:00 Completed [facility] HPV9 2018-09-07 00:00:00 Completed [facility] HPV9 2018-09-07 00:00:00 Completed [facility] HPV9 2018-09-07 00:00:00 Completed [facility] HPV9 2018-09-07 00:00:00 Completed [facility] HPV9 2018-09-07 00:00:00 Completed [facility] HPV9 2018-09-07 00:00:00 Completed [facility] HPV9 2018-09-07 00:00:00 Completed [facility] HPV9 2018-09-07 00:00:00 Completed [facility] HPV9 2018-09-07 00:00:00 Completed [facility] HPV9 2018-09-07 00:00:00 Completed [facility] HPV9 2018-09-07 00:00:00 Completed [facility] HPV9 2018-09-07 00:00:00 Completed [facility] HPV9 2018-09-07 00:00:00 Completed [facility] HPV9 2018-09-07 00:00:00 Completed [facility] HPV9 2018-09-07 00:00:00 Completed [facility] HPV9 2018-07-03 00:00:00 Completed [facility] HPV9 2018-07-03 00:00:00 Completed [facility] HPV9 2018-07-03 00:00:00 Completed [facility] HPV9 2018-07-03 00:00:00 Completed [facility] HPV9 2018-07-03 00:00:00 Completed [facility] HPV9 2018-07-03 00:00:00 Completed [facility] HPV9 2018-07-03 00:00:00 Completed [facility] HPV9 2018-07-03 00:00:00 Completed [facility] HPV9 2018-07-03 00:00:00 Completed [facility] HPV9 2018-07-03 00:00:00 Completed [facility] HPV9 2018-07-03 00:00:00 Completed [facility] HPV9 2018-07-03 00:00:[address] [facility] HPV9 2018-07-03 00:00:00 Completed [facility] HPV9 2018-07-03 00:00:00 Completed [facility] HPV9 2018-07-03 00:00:00 Completed [facility] HPV9 2018-07-03 00:00:[address] [facility] HPV9 2018-07-03 00:00:00 Completed [facility] HPV9 2018-07-03 00:00:00 Completed [facility] HPV9 2018-07-03 00:00:00 Completed [facility] HPV9 2018-07-03 00:00:00 Completed [facility] HPV9 2018-07-03 00:00:00 Completed [facility] HPV9 2018-07-03 00:00:00 Completed [facility] HPV9 2018-07-03 00:00:00 Completed [facility] HPV9 2018-07-03 00:00:[address] [facility] HPV9 2018-07-03 00:00:00 Completed [facility] HPV9 2018-07-03 00:00:00 Completed [facility] HPV9 2018-07-03 00:00:00 Completed [facility] HPV9 2018-07-03 00:00:00 Completed [facility] HPV9 2018-07-03 00:00:00 Completed [facility] HPV9 2018-07-03 00:00:00 Completed [facility] HPV9 2018-07-03 00:00:00 Completed [facility] HPV9 2018-07-03 00:00:00 Completed [facility] HPV9 2018-07-03 00:00:00 Completed [facility] HPV9 2018-07-03 00:00:00 Completed [facility] HPV9 2018-07-03 00:00:00 Completed [facility] HPV9 2018-07-03 00:00:00 Completed [facility] HPV9 2018-07-03 00:00:00 Completed [facility] HPV9 2018-07-03 00:00:00 Completed [facility] HPV9 2018-07-03 00:00:00 Completed [facility] HPV9 2018-07-03 00:00:[address] [facility] HPV9 2018-07-03 00:00:[address] [facility] HPV9 2018-07-03 00:00:[address] [facility] HPV9 2018-07-03 00:00:[address] [facility] Influenza Virus Vaccine Quad .5 mL IM 6+ MO 2017-01-01 00:00:[address] [facility] Influenza Virus Vaccine Quad .5 mL IM 6+ MO 2017-01-01 00:00:[address] [facility] Influenza Virus Vaccine Quad .5 mL IM 6+ MO 2017-01-01 00:00:[address] [facility] Influenza Virus Vaccine Quad .5 mL IM 6+ MO 2017-01-01 00:00:[address] [facility] Influenza Virus Vaccine Quad .5 mL IM 6+ MO 2017-01-01 00:00:[address] [facility] Influenza Virus Vaccine Quad .5 mL IM 6+ MO (FLUZONE/FLULAVAL/FL UARIX) 2017-01-01 00:00:[address] [facility] Influenza Virus Vaccine Quad .5 mL IM 6+ MO (FLUZONE/FLULAVAL/FL UARIX) 2017-01-01 00:00:[address] [facility] Influenza Virus Vaccine Quad .5 mL IM 6+ MO (FLUZONE/FLULAVAL/FL UARIX) 2017-01-01 00:00:[address] [facility] Influenza Virus Vaccine Quad .5 mL IM 6+ MO (FLUZONE/FLULAVAL/FL UARIX) 2017-01-01 00:00:[address] [facility] Influenza Virus Vaccine Quad .5 mL IM 6+ MO (FLUZONE/FLULAVAL/FL UARIX) 2017-01-01 00:00:[address] [facility] Influenza Virus Vaccine Quad .5 mL IM 6+ MO (FLUZONE/FLULAVAL/FL UARIX) 2017-01-01 00:00:[address] [facility] HEPATITIS A 2011-11-30 00:00:[address] [facility] HPV 2011-11-30 00:00:[address] [facility] Meningococcal Polysaccharide (groups A, C, Y and W-135) conjugate vaccine (MCV4P) 2011-11-30 00:00:[address] [facility] TDAP 2011-11-30 00:00:[address] [facility] Varicella (varivax)(chicken pox) 2011-11-30 00:00:[address] [facility] HEPATITIS A 2011-11-30 00:00:[address] [facility] HPV 2011-11-30 00:00:[address] [facility] Meningococcal Polysaccharide (groups A, C, Y and W-135) conjugate vaccine (MCV4P) 2011-11-30 00:00:[address] [facility] TDAP 2011-11-30 00:00:[address] [facility] Varicella (varivax)(chicken pox) 2011-11-30 00:00:[address] [facility] HEPATITIS A 2011-11-30 00:00:[address] [facility] HPV 2011-11-30 00:00:[address] [facility] Meningococcal Polysaccharide (groups A, C, Y and W-135) conjugate vaccine (MCV4P) 2011-11-30 00:00:[address] [facility] TDAP 2011-11-30 00:00:[address] [facility] Varicella (varivax)(chicken pox) 2011-11-30 00:00:[address] [facility] HEPATITIS A 2011-11-30 00:00:[address] [facility] HPV 2011-11-30 00:00:[address] [facility] Meningococcal Polysaccharide (groups A, C, Y and W-135) conjugate vaccine (MCV4P) 2011-11-30 00:00:[address] [facility] TDAP 2011-11-30 00:00:[address] [facility] Varicella (varivax)(chicken pox) 2011-11-30 00:00:[address] [facility] HEPATITIS A 2011-11-30 00:00:[address] [facility] HPV 2011-11-30 00:00:[address] [facility] Meningococcal Polysaccharide (groups A, C, Y and W-135) conjugate vaccine (MCV4P) 2011-11-30 00:00:[address] [facility] TDAP 2011-11-30 00:00:[address] [facility] Varicella (varivax)(chicken pox) 2011-11-30 00:00:[address] [facility] HEPATITIS A 2011-11-30 00:00:[address] [facility] HPV 2011-11-30 00:00:[address] [facility] Meningococcal Polysaccharide (groups A, C, Y and W-135) conjugate vaccine (MCV4P) 2011-11-30 00:00:[address] [facility] TDAP 2011-11-30 00:00:[address] [facility] Varicella (varivax)(chicken pox) 2011-11-30 00:00:[address] [facility] HEPATITIS A 2011-11-30 00:00:[address] [facility] HPV 2011-11-30 00:00:[address] [facility] Meningococcal Polysaccharide (groups A, C, Y and W-135) conjugate vaccine (MCV4P) 2011-11-30 00:00:[address] [facility] TDAP 2011-11-30 00:00:[address] [facility] Varicella (varivax)(chicken pox) 2011-11-30 00:00:[address] [facility] HEPATITIS A 2011-11-30 00:00:[address] [facility] HPV 2011-11-30 00:00:[address] [facility] Meningococcal Polysaccharide (groups A, C, Y and W-135) conjugate vaccine (MCV4P) 2011-11-30 00:00:[address] [facility] TDAP 2011-11-30 00:00:[address] [facility] Varicella (varivax)(chicken pox) 2011-11-30 00:00:[address] [facility] HEPATITIS A 2011-11-30 00:00:[address] [facility] HPV 2011-11-30 00:00:[address] [facility] Meningococcal Polysaccharide (groups A, C, Y and W-135) conjugate vaccine (MCV4P) 2011-11-30 00:00:[address] [facility] TDAP 2011-11-30 00:00:[address] [facility] Varicella (varivax)(chicken pox) 2011-11-30 00:00:[address] [facility] HEPATITIS A 2011-11-30 00:00:[address] [facility] HPV 2011-11-30 00:00:[address] [facility] Meningococcal Polysaccharide (groups A, C, Y and W-135) conjugate vaccine (MCV4P) 2011-11-30 00:00:[address] [facility] TDAP 2011-11-30 00:00:[address] [facility] Varicella (varivax)(chicken pox) 2011-11-30 00:00:[address] [facility] HEPATITIS A 2011-11-30 00:00:[address] [facility] HPV 2011-11-30 00:00:[address] [facility] Meningococcal Polysaccharide (groups A, C, Y and W-135) conjugate vaccine (MCV4P) 2011-11-30 00:00:[address] [facility] TDAP 2011-11-30 00:00:[address] [facility] Varicella (varivax)(chicken pox) 2011-11-30 00:00:[address] [facility] DTaP, Unspecified Formulation 2003-03-18 00:00:[address] [facility] MMR 2003-03-18 00:00:[address] [facility] IPV 2003-03-18 00:00:[address] [facility] DTaP, Unspecified Formulation 2003-03-18 00:00:[address] [facility] MMR 2003-03-18 00:00:[address] [facility] IPV 2003-03-18 00:00:[address] [facility] DTaP, Unspecified Formulation 2003-03-18 00:00:[address] [facility] MMR 2003-03-18 00:00:[address] [facility] IPV 2003-03-18 00:00:[address] [facility] DTaP, Unspecified Formulation 2003-03-18 00:00:[address] [facility] MMR 2003-03-18 00:00:[address] [facility] IPV 2003-03-18 00:00:[address] [facility] DTaP, Unspecified Formulation 2003-03-18 00:00:[address] [facility] MMR 2003-03-18 00:00:[address] [facility] IPV 2003-03-18 00:00:00 Completed [facility] DTaP, Unspecified Formulation 2003-03-18 00:00:00 Completed [facility] MMR 2003-03-18 00:00:00 Completed [facility] IPV 2003-03-18 00:00:00 Completed [facility] DTaP, Unspecified Formulation 2003-03-18 00:00:00 Completed [facility] MMR 2003-03-18 00:00:[address] [facility] IPV 2003-03-18 00:00:[address] [facility] DTaP, Unspecified Formulation 2003-03-18 00:00:00 Completed [facility] MMR 2003-03-18 00:00:[address] [facility] IPV 2003-03-18 00:00:[address] [facility] DTaP, Unspecified Formulation 2003-03-18 00:00:[address] [facility] MMR 2003-03-18 00:00:[address] [facility] IPV 2003-03-18 00:00:[address] [facility] DTaP, Unspecified Formulation 2003-03-18 00:00:00 Completed [facility] MMR 2003-03-18 00:00:[address] [facility] IPV 2003-03-18 00:00:[address] [facility] DTaP, Unspecified Formulation 2003-03-18 00:00:[address] [facility] MMR 2003-03-18 00:00:[address] [facility] IPV 2003-03-18 00:00:[address] [facility] DTaP, Unspecified Formulation 2001-01-01 00:00:00 Completed [facility] DTaP, Unspecified Formulation 2001-01-01 00:00:[address] [facility] DTaP, Unspecified Formulation 2001-01-01 00:00:[address] [facility] DTaP, Unspecified Formulation 2001-01-01 00:00:00 Completed [facility] DTaP, Unspecified Formulation 2001-01-01 00:00:00 Completed [facility] DTaP, Unspecified Formulation 2001-01-01 00:00:[address] [facility] DTaP, Unspecified Formulation 2001-01-01 00:00:00 Completed [facility] DTaP, Unspecified Formulation 2001-01-01 00:00:[address] [facility] DTaP, Unspecified Formulation 2001-01-01 00:00:[address] [facility] DTaP, Unspecified Formulation 2001-01-01 00:00:[address] [facility] DTaP, Unspecified Formulation 2001-01-01 00:00:[address] [facility] Hib-HbOC 2000-05-18 00:00:[address] [facility] MMR 2000-05-18 00:00:[address] [facility] Hib-HbOC 2000-05-18 00:00:[address] [facility] MMR 2000-05-18 00:00:[address] [facility] Hib-HbOC 2000-05-18 00:00:[address] [facility] MMR 2000-05-18 00:00:[address] [facility] Hib-HbOC 2000-05-18 00:00:[address] [facility] MMR 2000-05-18 00:00:[address] [facility] Hib-HbOC 2000-05-18 00:00:[address] [facility] MMR 2000-05-18 00:00:[address] [facility] Hib-HbOC 2000-05-18 00:00:[address] [facility] MMR 2000-05-18 00:00:[address] [facility] Hib-HbOC 2000-05-18 00:00:[address] [facility] MMR 2000-05-18 00:00:[address] [facility] Hib-HbOC 2000-05-18 00:00:[address] [facility] MMR 2000-05-18 00:00:[address] [facility] Hib-HbOC 2000-05-18 00:00:[address] [facility] MMR 2000-05-18 00:00:[address] [facility] Hib-HbOC 2000-05-18 00:00:[address] [facility] MMR 2000-05-18 00:00:[address] [facility] Hib-HbOC 2000-05-18 00:00:[address] [facility] MMR 2000-05-18 00:00:[address] [facility] Hep B, Adol or Pedi Dosage 1999-12-22 00:00:[address] [facility] IPV 1999-12-22 00:00:[address] [facility] Varicella (varivax)(chicken pox) 1999-12-22 00:00:[address] [facility] Hep B, Adol or Pedi Dosage 1999-12-22 00:00:[address] [facility] IPV 1999-12-22 00:00:[address] [facility] Varicella (varivax)(chicken pox) 1999-12-22 00:00:[address] [facility] Hep B, Adol or Pedi Dosage 1999-12-22 00:00:[address] [facility] IPV 1999-12-22 00:00:[address] [facility] Varicella (varivax)(chicken pox) 1999-12-22 00:00:[address] [facility] Hep B, Adol or Pedi Dosage 1999-12-22 00:00:[address] [facility] IPV 1999-12-22 00:00:[address] [facility] Varicella (varivax)(chicken pox) 1999-12-22 00:00:[address] [facility] Hep B, Adol or Pedi Dosage 1999-12-22 00:00:[address] [facility] IPV 1999-12-22 00:00:[address] [facility] Varicella (varivax)(chicken pox) 1999-12-22 00:00:[address] [facility] Hep B, Adol or Pedi Dosage 1999-12-22 00:00:[address] [facility] IPV 1999-12-22 00:00:[address] [facility] Varicella (varivax)(chicken pox) 1999-12-22 00:00:[address] [facility] Hep B, Adol or Pedi Dosage 1999-12-22 00:00:[address] [facility] IPV 1999-12-22 00:00:[address] [facility] Varicella (varivax)(chicken pox) 1999-12-22 00:00:[address] [facility] Hep B, Adol or Pedi Dosage 1999-12-22 00:00:[address] [facility] IPV 1999-12-22 00:00:[address] [facility] Varicella (varivax)(chicken pox) 1999-12-22 00:00:[address] [facility] Hep B, Adol or Pedi Dosage 1999-12-22 00:00:[address] [facility] IPV 1999-12-22 00:00:[address] [facility] Varicella (varivax)(chicken pox) 1999-12-22 00:00:[address] [facility] Hep B, Adol or Pedi Dosage 1999-12-22 00:00:[address] [facility] IPV 1999-12-22 00:00:[address] [facility] Varicella (varivax)(chicken pox) 1999-12-22 00:00:[address] [facility] Hep B, Adol or Pedi Dosage 1999-12-22 00:00:[address] [facility] IPV 1999-12-22 00:00:[address] [facility] Varicella (varivax)(chicken pox) 1999-12-22 00:00:[address] [facility] Hep B, Adol or Pedi Dosage 1999-09-21 00:00:[address] [facility] Hep B, Adol or Pedi Dosage 1999-09-21 00:00:[address] [facility] Hep B, Adol or Pedi Dosage 1999-09-21 00:00:[address] [facility] Hep B, Adol or Pedi Dosage 1999-09-21 00:00:[address] [facility] Hep B, Adol or Pedi Dosage 1999-09-21 00:00:[address] [facility] Hep B, Adol or Pedi Dosage 1999-09-21 00:00:[address] [facility] Hep B, Adol or Pedi Dosage 1999-09-21 00:00:[address] [facility] Hep B, Adol or Pedi Dosage 1999-09-21 00:00:[address] [facility] Hep B, Adol or Pedi Dosage 1999-09-21 00:00:[address] [facility] Hep B, Adol or Pedi Dosage 1999-09-21 00:00:[address] [facility] Hep B, Adol or Pedi Dosage 1999-09-21 00:00:[address] [facility] DTaP, Unspecified Formulation 1999-06-24 00:00:[address] [facility] Hep B, Adol or Pedi Dosage 1999-06-24 00:00:[address] [facility] Hib-HbOC 1999-06-24 00:00:[address] [facility] DTaP, Unspecified Formulation 1999-06-24 00:00:[address] [facility] Hep B, Adol or Pedi Dosage 1999-06-24 00:00:[address] [facility] Hib-HbOC 1999-06-24 00:00:[address] [facility] DTaP, Unspecified Formulation 1999-06-24 00:00:[address] [facility] Hep B, Adol or Pedi Dosage 1999-06-24 00:00:[address] [facility] Hib-HbOC 1999-06-24 00:00:[address] [facility] DTaP, Unspecified Formulation 1999-06-24 00:00:[address] [facility] Hep B, Adol or Pedi Dosage 1999-06-24 00:00:[address] [facility] Hib-HbOC 1999-06-24 00:00:[address] [facility] DTaP, Unspecified Formulation 1999-06-24 00:00:[address] [facility] Hep B, Adol or Pedi Dosage 1999-06-24 00:00:[address] [facility] Hib-HbOC 1999-06-24 00:00:[address] [facility] DTaP, Unspecified Formulation 1999-06-24 00:00:[address] [facility] Hep B, Adol or Pedi Dosage 1999-06-24 00:00:[address] [facility] Hib-HbOC 1999-06-24 00:00:[address] [facility] DTaP, Unspecified Formulation 1999-06-24 00:00:[address] [facility] Hep B, Adol or Pedi Dosage 1999-06-24 00:00:[address] [facility] Hib-HbOC 1999-06-24 00:00:[address] [facility] DTaP, Unspecified Formulation 1999-06-24 00:00:[address] [facility] Hep B, Adol or Pedi Dosage 1999-06-24 00:00:[address] [facility] Hib-HbOC 1999-06-24 00:00:[address] [facility] DTaP, Unspecified Formulation 1999-06-24 00:00:[address] [facility] Hep B, Adol or Pedi Dosage 1999-06-24 00:00:[address] [facility] Hib-HbOC 1999-06-24 00:00:[address] [facility] DTaP, Unspecified Formulation 1999-06-24 00:00:[address] [facility] Hep B, Adol or Pedi Dosage 1999-06-24 00:00:[address] [facility] Hib-HbOC 1999-06-24 00:00:[address] [facility] DTaP, Unspecified Formulation 1999-06-24 00:00:[address] [facility] Hep B, Adol or Pedi Dosage 1999-06-24 00:00:[address] [facility] Hib-HbOC 1999-06-24 00:00:[address] [facility] DTaP, Unspecified Formulation 1999-04-26 00:00:[address] [facility] Hib-HbOC 1999-04-26 00:00:[address] [facility] IPV 1999-04-26 00:00:[address] [facility] DTaP, Unspecified Formulation 1999-04-26 00:00:[address] [facility] Hib-HbOC 1999-04-26 00:00:[address] [facility] IPV 1999-04-26 00:00:[address] [facility] DTaP, Unspecified Formulation 1999-04-26 00:00:[address] [facility] Hib-HbOC 1999-04-26 00:00:[address] [facility] IPV 1999-04-26 00:00:[address] [facility] DTaP, Unspecified Formulation 1999-04-26 00:00:[address] [facility] Hib-HbOC 1999-04-26 00:00:[address] [facility] IPV 1999-04-26 00:00:[address] [facility] DTaP, Unspecified Formulation 1999-04-26 00:00:[address] [facility] Hib-HbOC 1999-04-26 00:00:[address] [facility] IPV 1999-04-26 00:00:[address] [facility] DTaP, Unspecified Formulation 1999-04-26 00:00:[address] [facility] Hib-HbOC 1999-04-26 00:00:[address] [facility] IPV 1999-04-26 00:00:[address] [facility] DTaP, Unspecified Formulation 1999-04-26 00:00:[address] [facility] Hib-HbOC 1999-04-26 00:00:[address] [facility] IPV 1999-04-26 00:00:[address] [facility] DTaP, Unspecified Formulation 1999-04-26 00:00:[address] [facility] Hib-HbOC 1999-04-26 00:00:[address] [facility] IPV 1999-04-26 00:00:[address] [facility] DTaP, Unspecified Formulation 1999-04-26 00:00:[address] [facility] Hib-HbOC 1999-04-26 00:00:[address] [facility] IPV 1999-04-26 00:00:[address] [facility] DTaP, Unspecified Formulation 1999-04-26 00:00:[address] [facility] Hib-HbOC 1999-04-26 00:00:[address] [facility] IPV 1999-04-26 00:00:[address] [facility] DTaP, Unspecified Formulation 1999-04-26 00:00:[address] [facility] Hib-HbOC 1999-04-26 00:00:[address] [facility] IPV 1999-04-26 00:00:[address] [facility] DTaP, Unspecified Formulation 1999-02-18 00:00:[address] [facility] Hib-HbOC 1999-02-18 00:00:[address] [facility] IPV 1999-02-18 00:00:[address] [facility] DTaP, Unspecified Formulation 1999-02-18 00:00:[address] [facility] Hib-HbOC 1999-02-18 00:00:[address] [facility] IPV 1999-02-18 00:00:[address] [facility] DTaP, Unspecified Formulation 1999-02-18 00:00:[address] [facility] Hib-HbOC 1999-02-18 00:00:[address] [facility] IPV 1999-02-18 00:00:[address] [facility] DTaP, Unspecified Formulation 1999-02-18 00:00:[address] [facility] Hib-HbOC 1999-02-18 00:00:[address] [facility] IPV 1999-02-18 00:00:[address] [facility] DTaP, Unspecified Formulation 1999-02-18 00:00:[address] [facility] Hib-HbOC 1999-02-18 00:00:[address] [facility] IPV 1999-02-18 00:00:[address] [facility] DTaP, Unspecified Formulation 1999-02-18 00:00:[address] [facility] Hib-HbOC 1999-02-18 00:00:[address] [facility] IPV 1999-02-18 00:00:[address] [facility] DTaP, Unspecified Formulation 1999-02-18 00:00:[address] [facility] Hib-HbOC 1999-02-18 00:00:[address] [facility] IPV 1999-02-18 00:00:[address] [facility] DTaP, Unspecified Formulation 1999-02-18 00:00:[address] [facility] Hib-HbOC 1999-02-18 00:00:[address] [facility] IPV 1999-02-18 00:00:[address] [facility] DTaP, Unspecified Formulation 1999-02-18 00:00:[address] [facility] Hib-HbOC 1999-02-18 00:00:[address] [facility] IPV 1999-02-18 00:00:[address] [facility] DTaP, Unspecified Formulation 1999-02-18 00:00:[address] [facility] Hib-HbOC 1999-02-18 00:00:[address] [facility] IPV 1999-02-18 00:00:[address] [facility] DTaP, Unspecified Formulation 1999-02-18 00:00:[address] [facility] Hib-HbOC 1999-02-18 00:00:[address] [facility] IPV 1999-02-18 00:00:[address] [facility] HPV9 Unknown Completed [facility] Influenza Virus Vaccine Quad .5 mL IM 6+ MO (FLUZONE/FLULAVAL/FL UARIX) Unknown Completed [facility] DTaP, Unspecified Formulation Unknown Completed [facility] HEPATITIS A [facility] Hep B, Adol or Pedi Dosage Unknown Completed [facility] Hib-HbOC Unknown Completed [facility] HPV Unknown Completed [facility] Meningococcal Polysaccharide (groups A, C, Y and W-135) conjugate vaccine (MCV4P) Unknown Completed [facility] MMR Unknown Completed [facility] IPV Unknown Completed [facility] TDAP Unknown Completed [facility] Varicella (varivax)(chicken pox) Unknown Completed [facility] HPV9 Unknown Completed [facility] Influenza Virus Vaccine Quad .5 mL IM 6+ MO (FLUZONE/FLULAVAL/FL UARIX) Unknown Completed [facility] DTaP, Unspecified Formulation Unknown Completed [facility] HEPATITIS A Unknown Completed [facility] Hep B, Adol or Pedi Dosage Unknown Completed [facility] Hib-HbOC Unknown Completed [facility] HPV Unknown Completed [facility] Meningococcal Polysaccharide (groups A, C, Y and W-135) conjugate vaccine (MCV4P) Unknown Completed [facility] MMR Unknown Completed [facility] IPV Unknown Completed [facility] TDAP Unknown Completed [facility] Varicella (varivax)(chicken pox) Unknown Completed [facility] HPV9 Unknown Completed [facility] Influenza Virus Vaccine Quad .5 mL IM 6+ MO (FLUZONE/FLULAVAL/FL UARIX) Unknown Completed [facility] DTaP, Unspecified Formulation Unknown Completed [facility] HEPATITIS A Unknown Completed [facility] Hep B, Adol or Pedi Dosage Unknown Completed [facility] Hib-HbOC Unknown Completed [facility] HPV Unknown Completed [facility] Meningococcal Polysaccharide (groups A, C, Y and W-135) conjugate vaccine (MCV4P) Unknown Completed [facility] MMR Unknown Completed [facility] IPV Unknown Completed [facility] TDAP Unknown Completed [facility] Varicella (varivax)(chicken pox) Unknown Completed [facility] HPV9 Unknown Completed [facility] Influenza Virus Vaccine Quad .5 mL IM 6+ MO (FLUZONE/FLULAVAL/FL UARIX) Unknown Completed [facility] DTaP, Unspecified Formulation Unknown Completed [facility] HEPATITIS A Unknown Completed [facility] Hep B, Adol or Pedi Dosage Unknown Completed [facility] Hib-HbOC Unknown Completed [facility] HPV Unknown Completed [facility] Meningococcal Polysaccharide (groups A, C, Y and W-135) conjugate vaccine (MCV4P) Unknown Completed [facility] MMR Unknown Completed [facility] IPV Unknown Completed [facility] TDAP Unknown Completed [facility] Varicella (varivax)(chicken pox) Unknown Completed [facility] HPV9 Unknown Completed [facility] Influenza Virus Vaccine Quad .5 mL IM 6+ MO (FLUZONE/FLULAVAL/FL UARIX) Unknown Completed [facility] DTaP, Unspecified Formulation Unknown Completed [facility] HEPATITIS A Unknown Completed [facility] Hep B, Adol or Pedi Dosage Unknown Completed [facility] Hib-HbOC Unknown Completed [facility] HPV Unknown Completed [facility] Meningococcal Polysaccharide (groups A, C, Y and W-135) conjugate vaccine (MCV4P) Unknown Completed [facility] MMR Unknown Completed [facility] IPV Unknown Completed [facility] TDAP Unknown Completed [facility] Varicella (varivax)(chicken pox) Unknown Completed [facility] HPV9 Unknown Completed [facility] Influenza Virus Vaccine Quad .5 mL IM 6+ MO (FLUZONE/FLULAVAL/FL UARIX) Unknown Completed [facility] DTaP, Unspecified Formulation Unknown Completed [facility] HEPATITIS A [facility], [facility] or [facility]os[facility] Completed [facility] Hib-HbOC Unknown Completed [facility] HPV Unknown Completed [facility] Meningococcal Polysaccharide (groups A, C, Y and W-135) conjugate vaccine (MCV4P) Unknown Completed [facility] MMR Unknown Completed [facility] IPV Unknown Completed [facility] TDAP Unknown Completed [facility] Varicella (varivax)(chicken pox) Unknown Completed [facility] HPV9 Unknown Completed [facility] Influenza Virus Vaccine Quad .5 mL IM 6+ MO (FLUZONE/FLULAVAL/FL UARIX) Unknown Completed [facility] DTaP, Unspecified Formulation Unknown Completed [facility] HEPATITIS A Unknown Completed [facility] Hep B, Adol or Pedi Dosage Unknown Completed [facility] Hib-HbOC Unknown Completed [facility] HPV Unknown Completed [facility] Meningococcal Polysaccharide (groups A, C, Y and W-135) conjugate vaccine (MCV4P) Unknown Completed [facility] MMR Unknown Completed [facility] IPV Unknown Completed [facility] TDAP Unknown Completed [facility] Varicella (varivax)(chicken pox) Unknown Completed [facility] HPV9 Unknown Completed [facility] Influenza Virus Vaccine Quad .5 mL IM 6+ MO (FLUZONE/FLULAVAL/FL UARIX) Unknown Completed [facility] TDAP Unknown Completed [facility] DTaP, Unspecified Formulation Unknown Completed [facility] HEPATITIS A Unknown Completed [facility] Hep B, Adol or Pedi Dosage Unknown Completed [facility] Hib-HbOC Unknown Completed [facility] HPV Unknown Completed [facility] Meningococcal Polysaccharide (groups A, C, Y and W-135) conjugate vaccine (MCV4P) Unknown Completed [facility] MMR Unknown Completed [facility] IPV Unknown Completed [facility] Varicella (varivax)(chicken pox) Unknown Completed [facility] HPV9 Unknown Completed [facility] Influenza Virus Vaccine Quad .5 mL IM 6+ MO (FLUZONE/FLULAVAL/FL UARIX) Unknown Completed [facility] TDAP Unknown Completed [facility] DTaP, Unspecified Formulation Unknown Completed [facility] HEPATITIS A Unknown Completed [facility] Hep B, Adol or Pedi Dosage Unknown Completed [facility] Hib-HbOC Unknown Completed [facility] HPV Unknown Completed [facility] Meningococcal Polysaccharide (groups A, C, Y and W-135) conjugate vaccine (MCV4P) Unknown Completed [facility] MMR Unknown Completed [facility] IPV Unknown Completed [facility] Varicella (varivax)(chicken pox) Unknown Completed [facility] HEPATITIS A Unknown Completed [facility] HPV Unknown Completed [facility] Meningococcal Polysaccharide (groups A, C, Y and W-135) conjugate vaccine (MCV4P) Unknown Completed [facility] HPV9 Unknown Completed [facility] Influenza Virus Vaccine Quad .5 mL IM 6+ MO (FLUZONE/FLULAVAL/FL UARIX) Unknown Completed [facility] TDAP Unknown Completed [facility] DTaP, Unspecified Formulation Unknown Completed [facility] Hep B, Adol or Pedi Dosage Unknown Completed [facility] Hib-HbOC Unknown Completed [facility] MMR Unknown Completed [facility] IPV Unknown Completed [facility] Varicella (varivax)(chicken pox) Unknown Completed [facility] HPV9 Unknown Completed [facility] Influenza Virus Vaccine Quad .5 mL IM 6+ MO (FLUZONE/FLULAVAL/FL UARIX) Unknown Completed [facility] TDAP Unknown Completed [facility] DTaP, Unspecified Formulation Unknown Completed [facility] HEPATITIS A Unknown Completed [facility] Hep B, Adol or Pedi Dosage Unknown Completed [facility] Hib-HbOC Unknown Completed [facility] HPV Unknown Completed [facility] Meningococcal Polysaccharide (groups A, C, Y and W-135) conjugate vaccine (MCV4P) Unknown Completed [facility] MMR Unknown Completed [facility] IPV Unknown Completed [facility] Varicella (varivax)(chicken pox) Unknown Completed [facility] Vital Signs Vital Name Observation Time Observation Value Comments S ourbreana Systolic blood pressure 2023-03-08 16:42:00 142 mm[Hg] [facility] Diastolic blood pressure 2023-03-08 16:42:00 89 mm[Hg] [facility] Heart rate 2023-03-08 16:42:00 91 /min [facility] Body temperature 2023-03-08 16:41:[address] [facility] Respiratory rate 2023-03-08 16:41:00 20 /min [facility] Body weight 2023-03-08 16:41:00 115.355 kg [facility] BMI 2023-03-08 16:41:00 37.56 kg/m2 [facility] Systolic blood pressure 2023-01-06 15:38:00 116 mm[Hg] [facility] Diastolic blood pressure 2023-01-06 15:38:00 77 mm[Hg] [facility] Heart rate 2023-01-06 15:38:00 76 /min [facility] Body temperature 2023-01-06 15:38:[address] [facility] Respiratory rate 2023-01-06 15:38:00 20 /min [facility] Body height 2023-01-06 15:38:00 175.3 cm [facility] Body weight 2023-01-06 15:38:00 111.84 kg [facility] BMI 2023-01-06 15:38:00 36.41 kg/m2 [facility] Systolic blood pressure 2022-12-17 12:40:00 124 mm[Hg] [facility] Diastolic blood pressure 2022-12-17 12:40:00 85 mm[Hg] [facility] Heart rate 2022-12-17 12:40:00 100 /min [facility] Body temperature 2022-12-17 12:40:[address] [facility] Respiratory rate 2022-12-17 12:40:00 18 /min [facility] Oxygen saturation in Arterial blood by Pulse oximetry 2022-12-17 12:40:00 97 /min [facility] Body height 2022-12-15 20:40:00 175.3 cm [facility] Body weight 2022-12-15 20:40:00 120.657 kg [facility] BMI 2022-12-15 20:40:00 39.28 kg/m2 [facility] Systolic blood pressure 2022-12-13 13:36:00 130 mm[Hg] [facility] Diastolic blood pressure 2022-12-13 13:36:00 90 mm[Hg] [facility] Heart rate 2022-12-13 13:36:00 116 /min [facility] Body temperature 2022-12-13 13:36:[address] [facility] Respiratory rate 2022-12-13 13:36:00 18 /min [facility] Body height 2022-12-13 13:36:00 175.3 cm [facility] Body weight 2022-12-13 13:36:00 120.385 kg [facility] BMI 2022-12-13 13:36:00 39.19 kg/m2 [facility] Systolic blood pressure 2022-12-07 16:07:00 125 mm[Hg] [facility] Diastolic blood pressure 2022-12-07 16:07:00 79 mm[Hg] [facility] Heart rate 2022-12-07 16:07:00 88 /min [facility] Body temperature 2022-12-07 16:07:[address] [facility] Respiratory rate 2022-12-07 16:07:00 18 /min [facility] Body height 2022-12-07 16:07:00 175.3 cm [facility] Body weight 2022-12-07 16:07:00 121.156 kg [facility] BMI 2022-12-07 16:07:00 39.44 kg/m2 [facility] Systolic blood pressure 2022-11-28 17:30:00 123 mm[Hg] [facility] Diastolic blood pressure 2022-11-28 17:30:00 74 mm[Hg] [facility] Heart rate 2022-11-28 17:30:00 70 /min [facility] Oxygen saturation in Arterial blood by Pulse oximetry 2022-11-28 17:30:00 98 /min [facility] Body temperature 2022-11-28 14:30:[address] [facility] Respiratory rate 2022-11-28 14:30:00 20 /min [facility] Body height 2022-11-28 14:30:00 175.3 cm [facility] Body weight 2022-11-28 14:30:00 120.657 kg [facility] BMI 2022-11-28 14:30:00 39.28 kg/m2 [facility] Systolic blood pressure 2022-11-23 16:02:00 128 mm[Hg] [facility] Diastolic blood pressure 2022-11-23 16:02:00 75 mm[Hg] [facility] Heart rate 2022-11-23 16:02:00 88 /min [facility] Body temperature 2022-11-23 16:02:[address] [facility] Respiratory rate 2022-11-23 16:02:00 20 /min [facility] Body height 2022-11-23 16:02:00 175.3 cm [facility] Body weight 2022-11-23 16:02:00 120.77 kg [facility] BMI 2022-11-23 16:02:00 39.32 kg/m2 [facility] Systolic blood pressure 2022-11-09 12:53:00 120 mm[Hg] [facility] Diastolic blood pressure 2022-11-09 12:53:00 74 mm[Hg] [facility] Heart rate 2022-11-09 12:53:00 95 /min [facility] Body temperature 2022-11-09 12:53:[address] [facility] Respiratory rate 2022-11-09 12:53:00 20 /min [facility] Body height 2022-11-09 12:53:00 175.3 cm [facility] Body weight 2022-11-09 12:53:00 121.745 kg [facility] BMI 2022-11-09 12:53:00 39.64 kg/m2 [facility] Systolic blood pressure 2022-10-21 15:56:00 129 mm[Hg] [facility] Diastolic blood pressure 2022-10-21 15:56:00 78 mm[Hg] [facility] Heart rate 2022-10-21 15:56:00 101 /min [facility] Body temperature 2022-10-21 15:56:[address] [facility] Respiratory rate 2022-10-21 15:56:00 18 /min [facility] Body height 2022-10-21 15:56:00 175.3 cm [facility] Body weight 2022-10-21 15:56:00 120.022 kg [facility] BMI 2022-10-21 15:56:00 39.07 kg/m2 [facility] Systolic blood pressure 2022-10-07 14:59:00 122 mm[Hg] [facility] Diastolic blood pressure 2022-10-07 14:59:00 70 mm[Hg] [facility] Heart rate 2022-10-07 14:59:00 103 /min [facility] Body temperature 2022-10-07 14:59:[address] [facility] Respiratory rate 2022-10-07 14:59:00 18 /min [facility] Body height 2022-10-07 14:59:00 175.3 cm [facility] Body weight 2022-10-07 14:59:00 119.886 kg [facility] BMI 2022-10-07 14:59:00 39.03 kg/m2 [facility] Systolic blood pressure 2022-09-23 16:10:00 125 mm[Hg] [facility] Diastolic blood pressure 2022-09-23 16:10:00 76 mm[Hg] [facility] Heart rate 2022-09-23 16:10:00 100 /min [facility] Body temperature 2022-09-23 16:10:[address] [facility] Respiratory rate 2022-09-23 16:10:00 18 /min [facility] Body height 2022-09-23 16:10:00 175.3 cm [facility] Body weight 2022-09-23 16:10:00 119.659 kg [facility] BMI 2022-09-23 16:10:00 38.96 kg/m2 [facility] Systolic blood pressure 2022-08-17 15:24:00 132 mm[Hg] [facility] Diastolic blood pressure 2022-08-17 15:24:00 73 mm[Hg] [facility] Heart rate 2022-08-17 15:24:00 90 /min [facility] Body temperature 2022-08-17 15:24:[address] [facility] Respiratory rate 2022-08-17 15:24:00 18 /min [facility] Body height 2022-08-17 15:24:00 175.3 cm [facility] Body weight 2022-08-17 15:24:00 115.35 kg [facility] BMI 2022-08-17 15:24:00 37.55 kg/m2 [facility] Systolic blood pressure 2022-07-21 14:43:00 130 mm[Hg] [facility] Diastolic blood pressure 2022-07-21 14:43:00 71 mm[Hg] [facility] Heart rate 2022-07-21 14:43:00 97 /min [facility] Body temperature 2022-07-21 14:43:[address] [facility] Respiratory rate 2022-07-21 14:43:00 17 /min [facility] Body height 2022-07-21 14:43:00 175.3 cm [facility] Body weight 2022-07-21 14:43:00 114.851 kg [facility] BMI 2022-07-21 14:43:00 37.39 kg/m2 [facility] Systolic blood pressure 2022-06-22 15:09:00 134 mm[Hg] [facility] Diastolic blood pressure 2022-06-22 15:09:00 90 mm[Hg] [facility] Heart rate 2022-06-22 15:09:00 98 /min [facility] Body temperature 2022-06-22 15:09:[address] [facility] Respiratory rate 2022-06-22 15:09:00 18 /min [facility] Body height 2022-06-22 15:09:00 175.3 cm [facility] Body weight 2022-06-22 15:09:00 109.816 kg [facility] BMI 2022-06-22 15:09:00 35.75 kg/m2 [facility] Systolic blood pressure 2022-05-25 15:32:00 119 mm[Hg] [facility] Diastolic blood pressure 2022-05-25 15:32:00 69 mm[Hg] [facility] Heart rate 2022-05-25 15:32:00 81 /min [facility] Body temperature 2022-05-25 15:32:[address] [facility] Respiratory rate 2022-05-25 15:32:00 18 /min [facility] Body height 2022-05-25 15:32:00 175.3 cm [facility] Body weight 2022-05-25 15:32:00 111.721 kg [facility] BMI 2022-05-25 15:32:00 36.37 kg/m2 [facility] Systolic blood pressure 2022-04-27 15:52:00 136 mm[Hg] [facility] Diastolic blood pressure 2022-04-27 15:52:00 79 mm[Hg] [facility] Heart rate 2022-04-27 15:52:00 98 /min [facility] Body temperature 2022-04-27 15:52:[address] [facility] Respiratory rate 2022-04-27 15:52:00 18 /min [facility] Body height 2022-04-27 15:52:00 175.3 cm [facility] Body weight 2022-04-27 15:52:00 109.856 kg [facility] BMI 2022-04-27 15:52:00 35.76 kg/m2 [facility] Systolic blood pressure 2022-02-17 15:46:00 131 mm[Hg] [facility] Diastolic blood pressure 2022-02-17 15:46:00 80 mm[Hg] [facility] Heart rate 2022-02-17 15:46:00 104 /min [facility] Body temperature 2022-02-17 15:46:[address] [facility] Respiratory rate 2022-02-17 15:46:00 18 /min [facility] Body weight 2022-02-17 15:46:00 108.455 kg [facility] BMI 2022-02-17 15:46:00 35.31 kg/m2 [facility] Systolic blood pressure 2022-02-10 21:46:00 121 mm[Hg] [facility] Diastolic blood pressure 2022-02-10 21:46:00 69 mm[Hg] [facility] Heart rate 2022-02-10 21:46:00 92 /min [facility] Body temperature 2022-02-10 21:46:[address] [facility] Respiratory rate 2022-02-10 21:46:00 18 /min [facility] Body height 2022-02-10 21:46:00 175.3 cm [facility] Body weight 2022-02-10 21:46:00 109.77 kg [facility] BMI 2022-02-10 21:46:00 35.74 kg/m2 [facility] Systolic blood pressure 2021-06-30 14:10:00 116 mm[Hg] [facility] Diastolic blood pressure 2021-06-30 14:10:00 66 mm[Hg] [facility] Heart rate 2021-06-30 14:10:00 96 /min [facility] Body temperature 2021-06-30 14:10:[address] [facility] Respiratory rate 2021-06-30 14:10:00 18 /min [facility] Body height 2021-06-30 14:10:00 175.3 cm [facility] Body weight 2021-06-30 14:10:00 112.129 kg [facility] BMI 2021-06-30 14:10:00 36.51 kg/m2 [facility] Procedures Procedure Date / Time Performed Performing Clinician Source POCT TEST 2023-03-08 16:51:[address] [facility] CONSENT FOR CONTRACEPTION 2023-03-08 06:01:00 Doctor Unassigned, [place] [facility] CBC WITH DIFF 2023-01-06 16:19:[address] [facility] CBC WITH DIFF 2022-12-17 09:09:00 Higinio Mcneill [facility] VENOUS CORD GAS 2022-12-16 14:24:00 [facility] CENTRAL NEURAXIAL BLOCK 2022-12-16 06:04:[address] [facility] CBC WITH DIFF 2022-12-15 21:29:00 Surya Slater [facility] HEPATITIS B SURFACE ANTIGEN 2022-12-15 21:29:00 [facility] HB ABO GROUPING 2022-12-15 21:29:00 Surya Slater [facility] RHO (D) IMMUNE GLOBULIN 2022-12-15 21:29:[address] [facility] HIV 1/2 AG-AB WITH REFLEX 2022-12-15 21:29:00 [facility] SYPHILIS IGG/IGM 2022-12-15 21:29:00 Surya Slater [facility] HOSPITAL ADMISSION 2022-12-15 05:01:00 Doctor Un assigned, [place] [facility] POCT URINALYSIS 2022-12-13 13:39:[address] [facility] POCT URINALYSIS 2022-12-07 16:09:[address] [facility] URINALYSIS 2022-11-28 16:20:[address] [facility] ADC CLC OR LCC ONLY - WET PREP 2022-11-28 16:20:00 Lucille Foster [facility] EXTERNAL PROVIDER RECORDS 2022-11-28 05:01:00 Doctor Unassigned, [place] [facility] MEDICAL RELEASE/CLEARANCE FORMS 2022-11-28 05:01:00 Doctor Unassigned, [place] [facility] L&D VISIT (NON-DELIVERED) 2022-11-28 05:01:00 Doctor Unassigned, [place] [facility] POCT URINALYSIS 2022-11-23 16:05:[address] [facility] POCT URINALYSIS 2022-11-09 00:00:[address] [facility] POCT URINALYSIS 2022-10-21 15:58:[address] [facility] TDAP VACCINE, >11 YRS, IM 2022-10-07 15:19:[address] [facility] POCT URINALYSIS 2022-10-07 15:02:[address] [facility] POCT URINALYSIS 2022-09-23 16:18:[address] [facility] POCT URINALYSIS 2022-08-17 15:26:[address] [facility] POCT URINALYSIS 2022-07-21 00:00:[address] [facility] TRICHOMONAS AMPLIFIED ASSAY 2022-06-28 18:13:[address] [facility] FIRST TRIMESTER ULTRASOUND 2022-06-23 14:50:[address] [facility] POCT URINALYSIS 2022-06-22 15:09:[address] [facility] CONSENT/REFUSAL FOR DIAGNOSIS AND TREATMENT 2022-06-22 14:48:52 Doctor Unassigned, [place] [facility] POCT URINALYSIS 2022-05-25 15:34:[address] [facility] GC & CHLAMYDIA AMPLIFIED ASSAY 2022-05-09 20:54:[address] [facility] TRICHOMONAS AMPLIFIED ASSAY 2022-05-09 20:54:[address] [facility] POCT URINALYSIS W/O SPECIFIC GRAVITY 2022-04-27 15:45:[address] [facility] POCT TEST 2022-04-27 15:44:[address] [facility] REPORT OF 2022-04-27 06:01:00 Doctor Cecilio yates, [place] [facility] POCT TEST 2022-02-17 15:48:[address] [facility] POCT TEST 2022-02-10 00:00:[address] [facility] BCCS-RELATED DOCUMENTATION 2022-01-19 05:01:00 Doctor Unassigned, [place] [facility] BI ULTRASOUND BREAST COMPLETE LEFT 2021-09-22 18:30:[address] [facility] Encounters Start Date/Time End Date/Time Encounter Type Admission Type Attending Clinicians Care Facility Care Department Encounter ID Source 2021-02-02 06:13:19 Emergency [facility] [id number] [facility] 2021-01-30 14:34:27 Emergency [facility] [id number] [facility] 2023-03-08 10:30:00 2023-03-08 11:42:48 Outpatient R SIMONA APARICIO [facility] [id number] [facility] 2023-03-08 10:30:00 2023-03-08 11:42:48 Office Visit Simona Aparicio PAFELICE [employer] OPERATOR 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 1.2.840.114 350.1.13.10 4.2.7.2.686 [id number] [facility] 2023-03-08 00:00:00 2023-03-08 00:00:00 Orders Only Doctor Unassigned, [place] [facility] 1.840.114 350.1.13.10 4.2.7.2.686 [id number] [facility] 2023-01-26 09:45:00 2023-01-26 09:45:00 Outpatient R SIMONA APARICIO [facility] [id number] [facility] 2023-01-26 00:00:00 2023-01-26 00:00:00 Telephone Simona Aparicio [facility] [employer]ATION OPERATOR [facility] 1..840.114 350.1.13.10 4.2.7.2.686 [id number] [facility] 2023-01-06 10:00:00 2023-01-06 11:20:32 Outpatient R SIMONA APARICIO [facility] [id number] [facility] 2023-01-06 10:00:00 2023-01-06 11:20:32 Routine Visit Simona Aparicio [facility] [employer] OPERATOR [facility] 1.840.114 350.1.13.10 4.2.7.2.686 [id number] [facility] 2022-12-19 00:00:00 2022-12-19 00:00:00 Telephone Lyudmila Montoya [facility] [employer] OPERATOR [facility] 1..840.114 350.1.13.10 4.2.7.2.686 [id number] [facility] 2022-12-15 15:05:00 2022-12-17 15:20:00 Inpatient U KARRI DAY [facility] [id number] [facility] 2022-12-15 15:05:00 2022-12-17 15:20:00 Hospital Encounter Karri Day [facility]uvb[facility] 1.2.840.114 350.1.13.10 4.2.7.2.686 [id number] [facility] 2022-12-16 00:34:00 2022-12-16 11:22:00 Anesthesia Event Erasmo, [facility] 1.2.840.114 350.1.13.10 4.2.7.2.686 [id number] [facility] 2022-12-15 00:00:00 2022-12-15 00:00:00 Orders Only Doctor Unassigned, [place] [facility] 1.2.840.114 350.1.13.10 4.2.7.2.686 [id number] [facility] 2022-12-13 08:30:00 2022-12-13 09:06:22 Outpatient R LYUDMILA MONTOYA [facility] [id number] [facility] 2022-12-13 08:30:00 2022-12-13 09:06:22 Routine Visit Lyudmila Montoya [facility] [employer]ATION OPERATOR [facility] 1.2.840.114 350.1.13.10 4.2.7.2.686 [id number] [facility] 2022-12-07 11:00:00 2022-12-07 11:15:00 Routine Visit Lyudmila Montoya [facility] [employer] OPERATOR [facility] 1.2.840.114 350.1.13.10 4.2.7.2.686 [id number] [facility] 2022-12-07 11:00:00 2022-12-07 11:00:00 Outpatient R LYUDMILA MONTOYA [facility] [id number] [facility] 2022-11-30 09:45:00 2022-11-30 09:45:00 Outpatient R LYUDMILA MONTOYA [facility] [id number] [facility] 2022-11-28 09:23:00 2022-11-28 13:05:00 Outpatient U LORENA S, LUCILLE MIRANDA-TATIANA S, LUCILLE [facility] [id number] [facility] 2022-11-28 09:23:00 2022-11-28 13:05:00 Hospital Encounter Lucille Morse [facility] 1..840.114 350.1.13.10 4.2.7.2.686 [id number] [facility] 2022-11-23 11:00:00 2022-11-23 11:42:15 Outpatient R SIMONA APARICIO [facility] [id number] [facility] 2022-11-23 11:00:00 2022-11-23 11:42:15 Routine Visit Simona Aparicio [facility] [employer] OPERATOR [facility] 1..840.114 350.1.13.10 4.2.7.2.686 [id number] [facility] 2022-11-09 07:45:00 2022-11-09 08:21:13 Outpatient LYUDMILA MACHUCA [facility] [id number] [facility] 2022-11-09 07:45:00 2022-11-09 08:21:13 Routine Visit Simona Aparicio Damilola C [facility] [employer] OPERATOR [facility] ..840.114 350.1.13.10 4.2.7.2.686 [id number] [facility] 2022-11-04 15:00:00 2022-11-04 15:00:00 Outpatient R LYUDMILA MONTOYA [facility] [id number] [facility] 2022-10-21 10:45:00 2022-10-21 11:11:59 Outpatient R LYUDMILA MONTOYA [facility] [id number] [facility] 2022-10-21 10:45:00 2022-10-21 11:11:59 Routine Visit Lyudmila Montoya [facility] [employer]ATION OPERATOR [facility] 1.2.840.114 350.1.13.10 4.2.7.2.686 [id number] [facility] 2022-10-07 10:00:00 2022-10-07 10:58:26 Outpatient R LYUDMILA MONTOYA [facility] [id number] [facility] 2022-10-07 10:00:00 2022-10-07 10:58:26 Routine Visit Lyudmila Montoya [facility] [employer]ATION OPERATOR [facility] CHILD [facility] 1.2.840.114 350.1.13.10 4.2.7.2.686 [id number] [facility] 2022-10-02 00:00:00 2022-10-02 00:00:00 Patient Secure Msg Lyudmila Montoya [facility] [employer] OPERATOR [facility] CHILD [facility] 1.2.840.114 350.1.13.10 4.2.7.2.686 [id number] [facility] 2022-09-29 00:00:00 2022-09-29 00:00:00 Abstract Lyudmila Montoya [facility] [employer]ATION OPERATOR [facility] 1.2.840.114 350.1.13.10 4.2.7.2.686 [id number] [facility] 2022-09-28 14:30:00 2022-09-28 14:58:03 Hospitality Team Member Visit 1, Ruy Room [facility] [employer] OPERATOR [facility] 1.2.840.114 350.1.13.10 4.2.7.2.686 [id number] [facility] 2022-09-28 14:30:00 2022-09-28 14:30:00 Outpatient P MEGPARVEZ COREY [facility] [id number] [facility] 2022-09-26 00:00:00 2022-09-26 00:00:00 Telephone Lyudmila Montoya [facility] [employer]ATION OPERATOR [facility] 1.840.114 350.1.13.10 4.2.7.2.686 [id number] [facility] 2022-09-23 11:00:00 2022-09-23 11:54:21 Outpatient R LYUDMILA MONTOYA [facility] [id number] [facility] 2022-09-23 11:00:00 2022-09-23 11:54:21 Routine Visit Lyudmila Montoya [facility] [employer] OPERATOR [facility] 1.0.114 350.1.13.10 4.2.7.2.686 [id number] [facility] 2022-09-14 09:00:00 2022-09-14 09:00:00 Outpatient R LYUDMILA MONTOYA [facility] [id number] [facility] 2022-08-18 00:00:00 2022-08-18 00:00:00 Abstract Lyudmila Montoya [facility] [employer]ATION OPERATOR [facility] CHILD [facility] 1.840.114 350.1.13.10 4.2.7.2.686 [id number] [facility] 2022-08-18 00:00:00 2022-08-18 00:00:00 Patient Secure Msg Lyudmila Montoya [facility] [employer]ATION OPERATOR [facility] CHILD [facility] 1.840.114 350.1.13.10 4.2.7.2.686 [id number] [facility] 2022-08-18 00:00:00 2022-08-18 00:00:00 Abstract Lyudmila Montoya [facility] [employer]AL STATION OPERATOR [facility] 1.2.840.114 350.1.13.10 4.2.7.2.686 [id number] [facility] 2022-08-17 10:45:00 2022-08-17 11:29:04 Routine Visit Lyudmila Montoya [facility] C[employer]AL STATION OPERATOR [facility] 1.2.840.114 350.1.13.10 4.2.7.2.686 [id number] [facility] 2022-08-17 09:15:00 2022-08-17 10:30:00 Hospitality Team Member Visit Ultrasound, Madeline Bernabe [facility] [employer]ATION OPERATOR [facility] 1.2.840.114 350.1.13.10 4.2.7.2.686 [id number] [facility] 2022-08-17 09:15:00 2022-08-17 09:55:18 Outpatient P MADELINE GARCIA SANGEETA [facility] [id number] [facility] 2022-07-21 09:45:00 2022-07-21 10:31:29 Outpatient R LYUDMILA MONTOYA [facility] [id number] [facility] 2022-07-21 09:45:00 2022-07-21 10:31:29 Routine Visit Lyudmila Montoya [facility] CENTRIFUGAL STATION OPERATOR [facility] [id number] [facility] 2022-07-14 00:00:00 2022-07-14 00:00:00 Abstract Lyudmila Montoya [facility] CENTRIFUGAL STATION OPERATOR [facility] CHILD [facility] [id number] [facility] 2022-06-28 13:15:00 2022-06-28 13:15:00 Outpatient R NICHOLEANGELINELYUDMILA KU [facility] [id number] [facility] 2022-06-28 13:15:00 2022-06-28 13:15:00 Hospitality Team Member Visit Lab, Michael-Rmchp Ozzy Montoyamerrick Velásquez [facility] CENTRIFUGAL STATION OPERATOR [facility]ERNAL & CHILD [facility] 1.840.114 350.1.13.10 4.2.7.2.686 [id number] [facility] 2022-06-24 00:00:00 2022-06-24 00:00:00 Abstract Hugo Montoyajulio Velásquez [facility] CENTRIFUGAL STATION OPERATOR [facility] 1.0.114 350.1.13.10 4.2.7.2.686 [id number] [facility] 2022-06-23 09:15:00 2022-06-23 15:56:10 Outpatient P PARVEZ WEAVER PARVEZ [facility] [id number] [facility] 2022-06-23 09:15:00 2022-06-23 15:56:10 Hospitality Team Member Visit 1, [facility] MegParvez [facility] CENTRIFUGAL STATION OPERATOR [facility]ILD [facility] 1.0.114 350.1.13.10 4.2.7.2.686 [id number] [facility] 2022-06-23 10:00:00 2022-06-23 10:12:39 Hospitality Team Member Visit Lab, AlexRmp Tonya Heath [facility] CENTRIFUGAL STATION OPERATOR [facility] CH[facility] 1.840.114 350.1.13.10 4.2.7.2.686 [id number] [facility] 2022-06-23 00:00:00 2022-06-23 00:00:00 Telephone Lyudmila Montoya PAFELICE [employer]ATION OPERATOR [facility] 1.0.114 350.1.13.10 4.2.7.2.686 [id number] [facility] 2022-06-22 09:45:00 2022-06-22 10:36:01 Outpatient R LYUDMILA MONTOYA [facility] [id number] [facility] 2022-06-22 09:45:00 2022-06-22 10:36:01 Routine Visit Lyudmila Montoya [facility] CENTRIFUGAL STATION OPERATOR [facility] 1.0.114 350.1.13.10 4.2.7.2.686 [id number] [facility] 2022-06-22 00:00:00 2022-06-22 00:00:00 Orders Only Doctor Unassigned, [place] [facility] ..114 350.1.13.10 4.2.7.2.686 [id number] [facility] 2022-05-25 09:45:00 2022-05-25 09:59:33 Outpatient R LYUDMILA MONTOYA [facility] [id number] [facility] 2022-05-25 09:45:00 2022-05-25 09:59:33 Routine Visit Lyudmila Montoya [facility] CENTRIFUGAL STATION OPERATOR [facility] 1..114 350.1.13.10 4.2.7.2.686 [id number] [facility] 2022-05-10 00:00:00 2022-05-10 00:00:00 Telephone Lyudmila Montoya [facility] CENTRIFUGAL STATION OPERATOR [facility] 1.2.840.114 350.1.13.10 4.2.7.2.686 [id number] [facility] 2022-05-09 13:15:00 2022-05-09 13:23:32 Outpatient R LYUDMILA MONTOYA [facility] [id number] [facility] 2022-05-09 13:15:00 2022-05-09 13:23:32 Hospitality Team Member Visit Lab, Michael-Rmp Lyudmila Montoya [facility] CENTRIFUGAL STATION OPERATOR [facility] 1.2.840.114 350.1.13.10 4.2.7.2.686 [id number] [facility] 2022-05-05 12:45:00 2022-05-05 12:45:00 Outpatient R LYUDMILA MONTOYA [facility] [id number] [facility] 2022-05-04 00:00:00 2022-05-04 00:00:00 Telephone Lyudmila Montoya [facility] CENTRIFUGAL STATION OPERATOR [facility] CHILD [facility] 1.2.840.114 350.1.13.10 4.2.7.2.686 [id number] 107 [id number] [facility] 2022-05-02 00:00:00 2022-05-02 00:00:00 Telephone Lyudmila Montoya [facility] CENTRIFUGAL STATION OPERATOR [facility] 1.2.840.114 350.1.13.10 4.2.7.2.686 [id number] 107 [id number] [facility] 2022-04-29 13:00:00 2022-04-29 13:00:00 Outpatient R LYUDMILA MONTOYA [facility] [id number] [facility] 2022-04-27 10:00:00 2022-04-27 10:53:17 Outpatient R LYUDMILA MONTOYA [facility] [id number] [facility] 2022-04-27 10:00:00 2022-04-27 10:53:17 Initial Visit Lyudmila Montoya [facility] CENTRIFUGAL STATION OPERATOR [facility] CHILD [facility] 1.2.840.114 350.1.13.10 4.2.7.2.686 [id number] [facility] 2022-04-27 00:00:00 2022-04-27 00:00:00 Telephone Lyudmila Montoya [facility] CENTRIFUGAL STATION OPERATOR [facility] 1.2840.114 350.1.13.10 4.2.7.2.686 [id number] [facility] 2022-04-27 00:00:00 2022-04-27 00:00:00 Orders Only Doctor Unassigned, [place] [facility] 1.2840.114 350.1.13.10 4.2.7.2.686 [id number] [facility] 2022-03-04 09:15:00 2022-03-04 09:15:00 Outpatient SIMONA KATE [facility] [id number] [facility] 2022-03-04 00:00:00 2022-03-04 00:00:00 Telephone Lyudmila Montoya [facility] CENTRIFUGAL STATION OPERATOR [facility] 1.840.114 350.1.13.10 4.2.7.2.686 [id number] [facility] 2022-02-17 10:00:00 2022-02-17 10:08:43 Outpatient SIMONA KATE [facility] [id number] [facility] 2022-02-17 10:00:00 2022-02-17 10:08:43 Office Visit Provider, ShahabRmchp Simona Villa [facility] CENTRIFUGAL STATION OPERATOR [facility] CH[facility] 1.20.114 350.1.13.10 4.2.7.2.686 [id number] 107 [id number] [facility] 2022-02-11 00:00:00 2022-02-11 00:00:00 Case Management Simona Aparicio [facility] CENTRIFUGAL STATION OPERATOR [facility] 1.840.114 350.1.13.10 4.2.7.2.686 [id number] [facility] 2022-02-10 15:30:00 2022-02-10 16:18:34 Outpatient R SIMONA APARICIO [facility] [id number] [facility] 2022-02-10 15:30:00 2022-02-10 16:18:34 Office Visit Provider, Simona Ram [facility] CENTRIFUGAL STATION OPERATOR [facility] 1.840.114 350.1.13.10 4.2.7.2.686 [id number] 107 [id number] [facility] 2022-01-19 00:00:00 2022-01-19 00:00:00 Orders Only Doctor Unassigned, [place] [facility] 1..114 350.1.13.10 4.2.7.2.686 [id number] [facility] 2021-12-31 09:40:00 2021-12-31 09:40:00 Outpatient R UNKNOWN, ATTENDING [facility] [id number] [facility] 2021-12-30 00:00:00 2021-12-30 00:00:00 Patient Secure Msg Hellen Woods R [facility] 1..114 350.1.13.10 4.2.7.2.686 [id number] 107 [id number] [facility] 2021-09-22 12:17:01 2021-09-22 23:59:00 Outpatient R LYUDMILA MONTOYA [facility] [id number] [facility] 2021-09-22 12:17:01 2021-09-22 23:59:00 Hospital Encounter Lyudmila Montoya [facility] 1.840.114 350.1.13.10 4.2.7.2.686 [id number] [facility] 2021-09-22 00:00:00 2021-09-22 00:00:00 Outpatient R LYUDMILA MONTOYA [facility] [id number] [facility] 2021-06-30 12:45:00 2021-06-30 13:32:57 Outpatient R LYUDMILA MONTOYA [facility] [id number] [facility] 2021-06-30 12:45:00 2021-06-30 12:45:00 Outpatient R LYUDMILA MONTOYA [facility] [id number] [facility] 2021-06-30 09:15:00 2021-06-30 09:49:37 Outpatient R LYUDMILA MONTOYA [facility] [id number] [facility] 2021-06-30 09:15:00 2021-06-30 09:49:37 Office Visit Lyudmila Montoya PA[facility]EL[facility] [employer]ATION OPERATOR 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 1..840.114 350.1.13.10 4.2.7.2.686 [id number] [facility] 2021-06-30 09:15:00 2021-06-30 09:49:37 Outpatient R LYUDMILA MONTOYA [facility] [id number] [facility] 2021-06-30 09:15:00 2021-06-30 09:49:37 Outpatient R LYUDMILA MONTOYA [facility] [id number] [facility] 2021-06-30 00:00:00 2021-06-30 00:00:00 Orders Only Doctor Unassigned, [place] [facility] 1..840.114 350.1.13.10 4.2.7.2.686 [id number] [facility] 2021-06-02 00:00:00 2021-06-02 00:00:00 Case Management Rachana Teague [place] 1.840.114 350.1.13.10 4.2.7.2.686 [id number] [facility] 2021-05-26 10:15:00 2021-05-26 10:54:44 Office Visit Lyudmila Montoya [facility] CENTRIFUGAL STATION OPERATOR [facility] 1.84.114 350.1.13.10 4.2.7.2.686 [id number] 107 [id number] [facility] 2021-05-26 10:15:00 2021-05-26 10:54:44 Outpatient R LYUDMILA MONTOYA [facility] [id number] [facility] 2021-05-26 10:15:00 2021-05-26 10:15:00 Outpatient R LYUDMILA MONTOYA [facility] [id number] [facility] 2021-05-26 00:00:00 2021-05-26 00:00:00 Orders Only Doctor Unassigned, [place] [facility] 1.84.114 350.1.13.10 4.2.7.2.686 [id number] [facility] 2021-05-21 10:00:00 2021-05-21 10:00:00 Outpatient R LYUDMILA MONTOYA [facility] [id number] [facility] 2021-01-12 15:00:00 2021-01-12 17:49:00 Emergency Sergio Calloway [facility] 1.840.114 350.1.13.10 4.2.7.2.686 [id number] [facility] 2020-08-24 00:00:00 2020-08-24 00:00:00 Patient Secure Msg WoodsHellen [facility] CENTRIFUGAL STATION OPERATOR [facility] 1.840.114 350.1.13.10 4.2.7.2.686 [id number] 107 [id number] [facility] 2020-07-10 12:30:00 2020-07-10 12:30:00 Outpatient R [facility] [id number] [facility] 2020-06-23 00:00:00 2020-06-23 00:00:00 Patient Outreach Thaddeus Tye Morales [facility] 1.840.114 350.1.13.10 4.2.7.2.686 [id number] [facility] 2020-06-03 10:28:44 2020-06-03 11:00:41 Office Visit WoodsHellen [facility] CENTRIFUGAL STATION OPERATOR [facility] .840.114 350.1.13.10 4.2.7.2.686 [id number] 107 [id number] [facility] 2020-06-03 10:45:00 2020-06-03 10:45:00 Outpatient R HELLEN WOODS [facility] [id number] [facility] 2020-06-03 10:45:00 2020-06-03 10:45:00 Outpatient R HELLEN WOODS [facility] [id number] [facility] 2020-06-02 00:00:00 2020-06-02 00:00:00 Patient Secure Msg Doctor Unassigned, [place] [facility] CENTRIFUGAL STATION OPERATOR [facility] CHILD [facility] .840.114 350.1.13.10 4.2.7.2.686 [id number] 107 [id number] [facility] 2020-06-01 00:00:00 2020-06-01 00:00:00 Patient Secure Msg Doctor Unassigned, [place] [facility] CENTRIFUGAL STATION OPERATOR [facility] 1.0.114 350.1.13.10 4.2.7.2.686 [id number] 107 [id number] [facility] 2020-04-15 14:30:00 2020-04-15 14:30:00 Outpatient HELLEN GILMAN [facility] [id number] [facility] 2020-04-15 14:30:00 2020-04-15 14:30:00 [facility] [id number] 2020-04-14 13:30:00 2020-04-14 13:30:00 [facility] [id number] [facility] 2020-04-09 13:30:00 2020-04-09 13:30:00 [facility] [id number] [facility] 2020-04-07 13:45:00 2020-04-07 13:45:00 Outpatient HOUSTON FRANCIS [facility] [id number] [facility] 2020-04-05 06:31:00 2020-04-05 06:45:00 Emergency Rosalina Mora [facility] 1.840.114 350.1.13.10 4.2.7.2.686 [id number] [facility] 2020-04-05 06:31:00 2020-04-05 06:45:00 Emergency Rosalina Mora [facility] 1.840.114 350.1.13.10 4.2.7.2.686 [id number] 2020-04-01 00:00:00 2020-04-01 00:00:00 Patient Secure Msg Doctor Unassigned, [place] [facility] CENTRIFUGAL STATION OPERATOR [facility] 1.840.114 350.1.13.10 4.2.7.2.686 [id number] [facility] 2020-03-16 13:09:12 2020-03-16 14:29:45 Office Visit Hellen Woods [facility] CENTRIFUGAL STATION OPERATOR [facility] 1.2.840.114 350.1.13.10 4.2.7.2.686 [id number] [facility] 2020-03-16 13:09:12 2020-03-16 14:29:45 Office Visit Hellen Woods [facility] CENTRIFUGAL STATION OPERATOR [facility] 1.2.840.114 350.1.13.10 4.2.7.2.686 [id number] 2020-03-16 13:15:00 2020-03-16 13:15:00 Outpatient R HELLEN WOODS [facility] [id number] [facility] 2020-03-16 00:00:00 2020-03-16 00:00:00 Orders Only Doctor Unassigned, [place] [facility] 1.20.114 350.1.13.10 4.2.7.2.686 [id number] [facility] 2018-12-19 00:00:00 2018-12-19 00:00:00 Telephone Houston Mora [facility]UGAL [facility] 1.20.114 350.1.13.10 4.2.7.2.686 [id number] [facility] 2018-12-11 00:00:00 2018-12-11 00:00:00 Orders Only Doctor Unassigned, [place] [facility] 1.2840.114 350.1.13.10 4.2.7.2.686 [id number] [facility] 2018-10-31 15:40:31 2018-10-31 15:57:46 Office Visit Houston Mora [facility] CENTRIFUGAL STATION OPERATOR [facility] 1.2.840.114 350.1.13.10 4.2.7.2.686 [id number] 107 [id number] [facility] Results Test Description Test Time Test Comments Results Result Co mments Source [facility] [id number] 16:51:00* Test Item Value Reference Range Interpretation Comme nts POCT PREG (test code = 1605) Negative On board controls acceptable with C Line (test code = 3574) Yes POCT PREG LOT # (test code = 3575) POCT PREG TEST DATE ( test code = 3576) [facility] WITH [id number] 05:59:31* Test Item Value Reference Range Interpretation [...] g/dL 31.6-35.1 L RDW-SD (test code = 45072-0) 39.0 fL 39.0-49.9 RDW-CV (test code = 788-0) 12.2 % 12.0-15.5 PLT (test code = 777-3) 373 See_Comment H [Automated messa ge] The system which generated this result transmitted reference range: 166 - 358 10*3/?L. The reference range was not used to interpret this result as normal/abnormal. MPV (test code = 50423-6) 12.3 fL 9.5-12.9 NRBC/100 WBC (test code = 4613000362) 0.0 See_Comment [Automated me ssage] The system which generated this result transmitted reference range: 0.0 - 10.0 /100 WBCs. The reference range was not used to interpret this result as normal/abnormal. NRBC x10^3 (test code = 9909856765) See_Comment [Automated messa ge] The system which generated this result transmitted reference range: 10*3/?L. The reference range was not used to interpret this result as normal/abnormal. GRAN MAT (NEUT) % (test code = 770-8) 64.0 % IMM GRAN % (test code = 7346639332) 0.30 % LYMPH % (test code = 736-9) 27.5 % MONO % (test code = 5905-5) 5.8 % EOS % (test code = 713-8) 1.7 % BASO % (test code = 706-2) 0.7 % GRAN MAT x10^3(ANC) (test code = 0089789709) 5.48 10*3/uL 1.88-7.09 IMM GRAN x10^3 (test code = 3477448922) 0.03 10*3/uL 0.00-0.06 LYMPH x10^3 (test code = 731-0) 2.36 10*3/uL 1.32-3.29 MONO x10^3 (test code = 742-7) 0.50 10*3/uL 0.33-0.92 EOS x10^3 (test code = 711-2) 0.15 10*3/uL 0.03-0.39 BASO x10^3 (test code = 704-7) 0.06 10*3/uL 0.01-0.07 Lab Interpretation (test code = 29923-5) Abnormal [facility] (D) IMMUNE [id number] 19:41:02* Test Item Value Reference Range Interpretation Comme nts RHIG CANDIDATE? (test code = 5188) No- see comment Patient is not a candidate for RhIg- Patient is Rh Positive.Performed at [facility] Laboratory Services - [facility] Blood [address] [address]Inzc Free: [phone] No. [id number] [facility] HospitalGALV ONLY - SYPHILIS [id number] 14:55:03* Test Item Value Reference Range Interpretation Comme nts Syphilis IgG/IgM (test code = 60689-0) Non-reactive Non-reactive TIMOTHY (test code = TIMOTHY) Non-reactive - No serologic evidence of T. pallidum infection. Cannot exclude incubating or early syphilis. Submit a second specimen in 2-4 weeks if syphilis is clinically suspected. Equivocal - Further testing to follow. Reactive - Further testing to follow. Lab Interpretation (test code = 91955-0) Normal [facility] HospitalArterial Cord [id number] 14:36:22* Test Item Value Reference Range Interpretation Comme nts BASE EXCESS, CORD (test code = 7269152560) -6.6 mEq/L AC PH, CORD (BEAKER) (test code = 9659488744) 7.25 7.18-7.38 PC02, CORD (test code = 4132740939) 49 See_Comment [Automated messa ge] The system which generated this result transmitted reference range: 32 - 66 mmHg. The reference range was not used to interpret this result as normal/abnormal. PO2, CORD (test code = 5439480977) 21 See_Comment [Automated messa ge] The system which generated this result transmitted reference range: 10 - 30 mmHg. The reference range was not used to interpret this result as normal/abnormal. BICARBONATE, CORD (test code = 4660781283) 21 See_Comment [Automated messa ge] The system which generated this result transmitted reference range: 17 - 27 mEq/L. The reference range was not used to interpret this result as normal/abnormal. [facility] HospitalVenous Cord [id number] 14:35:01* Test Item Value Reference Range Interpretation Comme nts VENOUS BASE EXCESS, CORD (test code = 5256562637) -3.6 mEq/L VENOUS PH, CORD (test code = 4610167083) 7.36 7.25-7.45 VENOUS PC02, CORD (test code = 4694306505) 39 See_Comment [Automated messa ge] The system which generated this result transmitted reference range: 27 - 49 mmHg. The reference range was not used to interpret this result as normal/abnormal. VENOUS PO2, CORD (test code = 0870604902) 32 See_Comment [Automated me ssage] The system which generated this result transmitted reference range: 17 - 41 mmHg. The reference range was not used to interpret this result as normal/abnormal. VENOUS BICARBONATE, CORD (test code = 8345566387) 21 See_Comment [Automated messa ge] The system which generated this result transmitted reference range: 12 - 29 mEq/L. The reference range was not used to interpret this result as normal/abnormal. [facility] HospitalHIV 1/2 AG-AB WITH [id number] 00:43:22* Test Item Value Reference Range Interpretation Comme nts HIV Semi-quantitative (test code = 60241-4) 0.09 Negative TIMOTHY (test code = TIMOTHY) Non-reactive for HIV-1 antigen and HIV-1/HIV-2 antibodies. ?No laboratory evidence of HIV infection. ?Repeat in 2-4 weeks if acute HIV infection is suspected. [facility] HospitalHepatitis B Surface [id number] 23:04:25 * Test Item Value Reference Range Interpretation Comme nts HBsAg Semi-Quantitative (vida t code = 5195-3) 0.[address] HospitalCBC with [id number] 21:44:01* Test Item Value Reference Range Interpretation [...] 34.0 g/dL 31.6-35.1 RDW-SD (test code = 51252-6) 39.6 fL 39.0-49.9 RDW-CV (test code = 788-0) 12.9 % 12.0-15.5 PLT (test code = 777-3) 290 See_Comment [Automated message] The system which generated this result transmitted reference range: 166 - 358 10*3/?L. The reference range was not used to interpret this result as normal/abnormal. MPV (test code = 88421-0) 12.0 fL 9.5-12.9 NRBC/100 WBC (test code = 0686158875) 0.0 See_Comment [Automated message] The system which generated this result transmitted reference range: 0.0 - 10.0 /100 WBCs. The reference range was not used to interpret this result as normal/abnormal. NRBC x10^3 (test code = 8245082340) See_Comment [Automated message] The system which generated this result transmitted reference range: 10*3/?L. The reference range was not used to interpret this result as normal/abnormal. GRAN MAT (NEUT) % (test code = 770-8) 74.5 % IMM GRAN % (test code = 3734962755) 1.40 % LYMPH % (test code = 736-9) 18.1 % MONO % (test code = 5905-5) 5.1 % EOS % (test code = 713-8) 0.6 % BASO % (test code = 706-2) 0.3 % GRAN MAT x10^3(ANC) (test code = 8273195385) 11.92 10*3/uL 1.88-7.09 H IMM GRAN x10^3 (test code = 1655954393) 0.23 10*3/uL 0.00-0.06 H LYMPH x10^3 (test code = 731-0) 2.90 10*3/uL 1.32-3.29 MONO x10^3 (test code = 742-7) 0.82 10*3/uL 0.33-0.92 EOS x10^3 (test code = 711-2) 0.10 10*3/uL 0.03-0.39 BASO x10^3 (test code = 704-7) 0.05 10*3/uL 0.01-0.07 Lab Interpretation (test code = 24949-5) [facility]normal [facility] ONCE [id number] 21:39:00 * Test Item Value Reference Range Interpretation Comme nts ABO & RH (test code = 20) B POSITIVE IAT (test code = 1185) Negative [facility] W SPECIFIC [id number] 13:41:00* Test Item Value Reference Range Interpretation [...] U APPEAR (test code = 3267) . [facility] W SPECIFIC [id number] 16:09:00* Test Item Value Reference Range Interpretation [...] U APPEAR (test code = 3267) . [facility] URINALYSIS W SPECIFIC [id number] 16:06:00* Test Item Value Reference Range Interpretation [...] POCT U APPEAR (test code = 3267) [facility] URINALYSIS W SPECIFIC [id number] 12:55:00* Test Item Value Reference Range Interpretation [...] U APPEAR (test code = 3267) . [facility] URINALYSIS W SPECIFIC [id number] 12:55:00* Test Item Value Reference Range Interpretation [...] U APPEAR (test code = 3267) . [facility] URINALYSIS W SPECIFIC [id number] 15:58:00* Test Item Value Reference Range Interpretation [...] U APPEAR (test code = 3267) . [facility] URINALYSIS W SPECIFIC [id number] 15:58:00* Test Item Value Reference Range Interpretation [...] U APPEAR (test code = 3267) . [facility] [facility] URINALYSIS W SPECIFIC [id number] 15:02:00* Test Item Value Reference Range Interpretation [...] U APPEAR (test code = 3267) . [facility] URINALYSIS W SPECIFIC [id number] 16:18:00* Test Item Value Reference Range Interpretation [...] U APPEAR (test code = 3267) . [facility] URINALYSIS W SPECIFIC [id number] 16:18:00* Test Item Value Reference Range Interpretation [...] U APPEAR (test code = 3267) . [facility] URINALYSIS W SPECIFIC [id number] 16:18:00* Test Item Value Reference Range Interpretation [...] U APPEAR (test code = 3267) . [facility] URINALYSIS W SPECIFIC [id number] 15:26:00* Test Item Value Reference Range Interpretation [...] U APPEAR (test code = 3267) . [facility] URINALYSIS W SPECIFIC [id number] 15:26:00* Test Item Value Reference Range Interpretation [...] U APPEAR (test code = 3267) . [facility] URINALYSIS W SPECIFIC [id number] 15:26:00* Test Item Value Reference Range Interpretation [...] U APPEAR (test code = 3267) . [facility] URINALYSIS W SPECIFIC [id number] 15:26:00* Test Item Value Reference Range Interpretation [...] U APPEAR (test code = 3267) . [facility] URINALYSIS W SPECIFIC [id number] 14:46:00* Test Item Value Reference Range Interpretation [...] U APPEAR (test code = 3267) . [facility] URINALYSIS W SPECIFIC [id number] 14:46:00* Test Item Value Reference Range Interpretation [...] U APPEAR (test code = 3267) . [facility] URINALYSIS W SPECIFIC [id number] 15:10:00* Test Item Value Reference Range Interpretation [...] U APPEAR (test code = 3267) . [facility] URINALYSIS W SPECIFIC [id number] 15:10:00* Test Item Value Reference Range Interpretation [...] U APPEAR (test code = 3267) . [facility] URINALYSIS W SPECIFIC [id number] 15:10:00* Test Item Value Reference Range Interpretation [...] U APPEAR (test code = 3267) . [facility] URINALYSIS W SPECIFIC [id number] 15:10:00* Test Item Value Reference Range Interpretation [...] U APPEAR (test code = 3267) . [facility] URINALYSIS W SPECIFIC [id number] 15:34:00* Test Item Value Reference Range Interpretation [...] U APPEAR (test code = 3267) . [facility] URINALYSIS W SPECIFIC [id number] 15:34:00* Test Item Value Reference Range Interpretation [...] U APPEAR (test code = 3267) . [facility] URINALYSIS W/O SPECIFIC [id number] 15:45:00* Test Item Value Reference Range Interpretation [...] = 3257) Trace Negative - Negati ve [facility] [id number] 15:44:00* Test Item Value Reference Range Interpretation Comme nts POCT PREG (test code = 1605) Positive On board controls acceptable with C Line (test code = 3574) Yes POCT PREG LOT # (test code = 3575) POCT PREG TEST DATE ( test code = 3576) [facility] [id number] 15:48:00* Test Item Value Reference Range Interpretation Comme nts POCT PREG (test code = 1605) Negative On board controls acceptable with C Line (test code = 3574) Yes POCT PREG LOT # (test code = 3575) POCT PREG TEST DATE ( test code = 3576) [facility] [id number] 15:48:00* Test Item Value Reference Range Interpretation Comme nts POCT PREG (test code = 1605) Negative On board controls acceptable with C Line (test code = 3574) Yes POCT PREG LOT # (test code = 3575) POCT PREG TEST DATE ( test code = 3576) [facility] [id number] 22:27:00* Test Item Value Reference Range Interpretation Comme nts POCT PREG (test code = 1605) Negative On board controls acceptable with C Line (test code = 3574) Yes POCT PREG LOT # (test code = 3575) POCT PREG TEST DATE ( test code = 3576) [facility] [id number] 22:27:00* Test Item Value Reference Range Interpretation Comme nts POCT PREG (test code = 1605) Negative On board controls acceptable with C Line (test code = 3574) Yes POCT PREG LOT # (test code = 3575) POCT PREG TEST DATE ( test code = 3576) [facility] History and Physical Notes Date/Time Note Provider Source 2022-11-28 12:51:05 Formatting of this n ote is different from the original. ANTEPARTUM HISTORY & PHYSICAL IDENTIFYING DATA Marla Harmon is 21 year old, /White, 36w4d, female with MIROSLAVA 12/22/2022, by Ultrasound. : 2000 Primary Care Physician: Lyudmila Jiangstephy Hospital Day: 1 CHIEF COMPLAINT contractions HISTORY OF PRESENT ILLNESS 21 year old @36w4d presents as a transfer from [facility]. Pt states contractions have decreased and just feel pressure. Denies vb or LOF. +FM PCP with [facility] PAST OBSTETRIC HISTORY OB History Para Term AB Living 2 1 1 1 SAB IAB Ectopic Multiple Live Births 1 # Outcome Date GA Lbr Jakub/2nd Weight Sex Delivery Anes PTL Lv 2 Current 1 Term 05/03/17 37w0d 3317 g M NORMAL SPONT HANSEL Complications: Gestational hypertension PAST MEDICAL HISTORY Problem list: Patient Active Problem List Diagnosis Date [...] 07/03/2018 Operations: No past surgical history on file. Prior surgeries at outside hospitals: none Past Medical History: Diagnosis Date Anemia Ongoing, not on meds Breakthrough bleeding on Nexplanon 08/29/2018 ongoing Hypertension 2017 During Screen for STD (sexually transmitted disease) Trichomonal vaginitis during 05/10/2022 CURRENT HEALTH STATUS Medications: No current facility-administered medications for this encounter. Allergies and drug reactions: Patient has no known allergies. HOME MEDICATIONS Medications Prior to Admission Medication Sig Dispense Refill [...] and Vomiting (N/V). 30 tablet 0 SOCIAL HISTORY Tobacco History: Social History Tobacco Use Smoking Status Former Packs/day: .1 Types: Cigarettes Start date: 07/03/2016 Quit date: 04/16/2022 Years since quittin.6 Smokeless Tobacco Never Drug History: Social History Substance and Sexual Activity Drug Use No Alcohol History: Social History Substance and Sexual Activity Alcohol Use Yes Comment: quit 04/16/2022 FAMILY HISTORY Family History Problem Relation Age of Onset Heart Mother Uterine Cancer Mother Cancer Mother Ovarian Cancer Mother High cholesterol Brother Arthritis Maternal Grandmother Heart Maternal Grandmother Diabetes Maternal Grandmother Hypertension Maternal Grandmother No Significant Medical Problems Sister REVIEW OF SYSTEMS General: negative Constitutional: weight gain Eyes: negative ENT/Mouth: negative Cardiovascular: negative Respiratory: negative Gastrointestinal:pain Genitourinary: negative Musculoskeletal: negative Skin/breast: negative Neurological: negative Psychiatric: negative Endocrine: negative Hemat/Lymph: negative Allergic/Immuno:none VITAL SIGNS BP: (115-135)/(66-82) Temp: [36.6 ?C (97.9 ?F)] Temp source: Temporal Artery (11/28 0930) Pulse: [62-84] Resp: [20] SpO2: [98 %-100 %] Height: [175.3 cm (5' 9")] Weight: [120.7 kg (266 lb)] BMI (calculated): [39.28] PHYSICAL EXAMINATIONS General: well-developed, well-nourished Abdomen: tenderness - normal : OB pelvic exam performed? Yes. Dilation - 1 cm Effacement - 0 % % Station - -4 by CONTOUR SANDER OF LABORATORY, PATHOLOGY, AND RADIOLOGY DATA Lab results: CBC BMP PT/INR WBC (10*3/?L) Date Value 11/23/2022 [...] units) Date Value 11/23/2022 Negative X-ray results: none Placenta Accreta Screening Prior ? : No Prior Uterine Surgery?: No Placenta low lying/previa in current ? : No Screening outcome: A positive screening outcome indicates a history of prior delivery or prior uterine surgery, AND the presence of either a placenta low lying/previa or ultrasound suspicion of PASD in the current . Negative screening. HEART RATE Cat 1 Irregular contractions ASSESSMENT AND PLAN Active Problems: Obesity (BMI 30-39.9) (11/28/2022) (POA: Unknown) Irregular uterine contractions (11/28/2022) (POA: Yes) Assessment: Not in active labor, reassuring status Plan: Discharge home with labor warnings Lucille Foster MD [facility] Procedure Notes Date/Time Note Provider Source 2022-12-16 01:04:12 Associated Order(s): Central Neuraxial Block Central Neuraxial Block Date/Time: 12/16/2022 1:04 AM Performed by: Marcus De Leon MD Authorized by: Hiram Foster MD Patient Location: OB End Time: 12/16/2022 1:04 AM Reason for Block: OB request, Patient request, Labor analgesia, Surgical anesthesia and Post-op pain management Staff: Anesthesiologist: Hiram Foster MD Resident/EARLY CHILDHOOD EDUCATOR AIDE: Marcus De Leon MD Performed by: resident/EARLY CHILDHOOD EDUCATOR AIDE Preanesthetic Checklist: patient identified, IV checked, risks and benefits explained, monitors and equipment checked, timeout performed, pre-op evaluation, site marked and anesthesia consent Procedure: Type of Neuraxial: Epidural Epidural Description: 1st attempt Sterility Prep cap, drape, gloves, hand hygiene and mask Patient Position: sitting Prep: Betadine and patient draped Monitoring: heart rate, continuous pulse ox, heart rate / toco and NIBP Location: lumbar (1-5) Lumbar: L3-L4 Approach: midline Technique: ALEXI air and catheter Guidance with: landmark technique} Epidural/Spinal [place] and/or Catheter: Epidural/Spinal Kit: Lorna Needle Type: Tuohy Needle Gauge: 17 G Needle Length: 3.5 in (8.89 cm) Needle Insertion Depth: 7 Catheter Type: multiport Catheter Size: 19 G Catheter at Skin Depth: 11 Number of Attempts: 1 Test Dose: negative and lidocaine 1.5% with epinephrine 1-to-200,000 Dose: 3 cc Catheter Securement Method: surgical tape and Tegaderm Assessment: Block Outcome: a full evaluation is pending, patient comfortable and patient tolerated procedure well Procedure Assessment: patient tolerated procedure well with no complications Notes: Patient identified; pre-procedure verification. Patient prepped and draped in standard sterile fashion using betadine x 3 Subcutaneous infiltration with 1% Lidocaine ALEXI at 7 cm; catheter secured at 11 cm with mastisol, tegaderm x2 and 3-inch clear tape. Aspiration test negative x 3 Test dose negative Patient tolerated procedure well with no immediate complications Epidural expectations; PCEA explained and fall precautions given. AN-ANESTHESIOLOGY [facility] Notes Date/Time Note Provider Source 2022-12-19 11:34:57 Formatting of this n ote might be different from the original. Pt calling, requesting work excuse for her partner aMxi Blakely for date of IOL. Letter prepared and sent via [employer]. Rosemary Rose RN 12/19/22 11:36 AM [facility] 2022-12-19 11:18:36 Formatting of this n ote might be different from the original. Marla Harmon is a 21 year old female calling requesting excuse letter for being at the delivering of baby on 12/15. Please contact patient at [phone] Toña Lam [facility] 2022-12-17 14:15:17 Formatting of this n ote might be different from the original. Problem: Pain Goal: Control of pain at or below patient's documented comfort goal Outcome: Adequate for discharge Goal: Reduction in pain sensation Outcome: Adequate for discharge Problem: Infection Risk Goal: Absence of infection Outcome: Adequate for discharge Problem: Discharge Planning - Goal: Adequate for discharge Outcome: Adequate for discharge Goal: Mood stable Outcome: Adequate for discharge Problem: Falls, Risk of Goal: Absence of falls Outcome: Adequate for discharge Darline Leon RN [facility] 2022-12-17 14:00:00 Formatting of this n ote is different from the original. Images from the original note were not included. This note was copied from a baby's chart. [...] Financial Class -- recommended to apply for WIC Delivery method Infant Oral Assessment Oral assessment New assessment Date of 12/16/22 Time of 09 location Mother Baby Unit Chin Normal Palate assessment Normal;High Restricted tongue motion observed Able to strip gloved finger;Able to cup finger Upper lip assessment Normal;Can flange Breast Assessment Breast Assessment Initial Symmetry Symmetrical Size L (D-DD) Shape Rounded;Pendulous Other Soft Nipple & Areola Assessment Left Areola Pliable Right Areola Pliable Left Nipple Colostrum visible;Intact;Everted;Justyna rt Right Nipple Colostrum visible;Intact;Everted;Justyna rt Literature Resources Resources guide;[place] channel Education 6 months exclusive , up to and beyond 1 year with complimentary foods;Infant hunger cues;On-demand feeds at least 8 or more over 24 hours;Diaper counts/color;Lactogenesis; Benefits of skin to skin contact;Encouraged rooming-in;Waking techniques;Signs of an effective latch; stomach size;Post circumcision feeding patterns;2nd day/growth spurt cluster feeds Television Tube Inspector Observation Reported;Mom states infant latches well with no pain reports infant was well on left side; difficulty on right Position right side Cross cradle assisted to breastfeed on right in cross cradle. Infant sleepy after circumcision; Mom able to manually express drops colostrum Interventions Taught hand expression Mother demonstrated teach back of Breast massage and hand expression Follow up Mom will call staff;Apply to WIC services after discharge;[facility] warmline;[employer] Recommended Feeding Plan Recommended feeding plan On-demand , 8-12 times in 24 hours not to exceed 6 hours between feeds;Frequent vquy-dh-ojom time with parents Nakia Mayes RN, BSN, IBCLC Nakia Mayes RN [facility] 2022-12-16 17:10:13 Formatting of this n ote might be different from the original. Problem: Intrapartum process (including labor pain) Goal: Absence of or reduction of complications of labor Outcome: Progressing as expected Goal: Able to cope with pain Outcome: Progressing as expected Goal: Adequate to move to next level of care Outcome: Progressing as expected Goal: Reduction in pain sensation Outcome: Progressing as expected Problem: Pain Goal: Control of pain at or below patient's documented comfort goal Outcome: Progressing as expected Goal: Reduction in pain sensation Outcome: Progressing as expected Problem: Infection Risk Goal: Absence of infection Outcome: Progressing as expected Problem: Discharge Planning - Goal: Adequate for discharge Outcome: Progressing as expected Goal: Mood stable Outcome: Progressing as expected Problem: Falls, Risk of Goal: Absence of falls Outcome: Progressing as expected Luis Daniel Berry RN [facility] 2022-12-16 11:41:25 Formatting of this n ote is different from the original. Patient: Marla Harmon Procedure Summary Date: 12/16/22 Room / Location: Anesthesia Start: 0034 Anesthesia Stop: 112 Procedure: CENTRAL NEURAXIAL BLOCK Diagnosis: Scheduled Providers: Responsible Provider: Winifred Taylor MD Anesthesia Type: Epidural ASA Status: 2 Anesthesia Type: Epidural Last vitals BP 115/70 (12/16/22 1050) Temp Pulse 73 (12/16/22 1050) Resp SpO2 95 % (12/16/22 1102) There were no known notable events for this encounter. Anesthesia Post Evaluation Patient location during evaluation: bedside Patient participation: complete - patient participated Level of consciousness: awake Pain score: 0 Pain management: adequate Airway patency: patent Cardiovascular status: acceptable Respiratory status: acceptable, room air, unassisted and spontaneous ventilation Hydration status: stable Comments: ANESTHESIA FACULTY EPIDURAL NOTE Date of service: 12/16/2022 Patient examined, patient awake s/p with MONA. Now s/p catheter removal. BP 115/70 | Pulse 73 | Temp 37.1 ?C (98.7 ?F) (Oral) | Ht 1.753 m (5' 9") | Wt 120.7 kg (266 lb) | LMP 03/26/2022 | SpO2 95% | Unknown | BMI 39.28 kg/m? Block not fully resolved, as expected. Patient participated otherwise. Block resolving appropriately. Patient discharged from L&D according to criteria. Complications: No apparent complications Fall precautions given Michelle Ford MD AN-ANESTHESIOLOGY ANESTHESIOLOGIST [facility] 2022-12-16 10:16:16 Formatting of this n ote is different from the original. DELIVERY BY SPONTANEOUS VAGINAL DELIVERY Delivery Date: 12/16/2022 Delivery Time: 9:05 AM Delivery Summary The patient was admitted to the Labor & Delivery unit for IOL at 39w weeks. Delivery Physician: Rufino Forbes MD PhD Teaching Resident: Osiris Mcneill MD OB Faculty: Madeline Garcia MD Intrapartum Anesthesia/Analgesia: Epidural Mode of Delivery: Delivery of dominguez fetus with cephalic presentation Fetus Spontaneous vaginal delivery of head with cephalic position, [...] clear amniotic fluid. A normal, male was delivered. The umbilical cord was double clamped, cut and the infant was handed off the field to the circulating nurse Placenta Placenta was delivered spontaneously while the abdominal hand lifted the uterus cephalad and other hand keeping the umbilical cord slightly taut. Laceration Laceration Repair: Minor - R labial laceration closed with continuous sutures. Fourth Stage Fourth stage of labor was managed by uterine [...] misoprostol rectally. Adequate control of bleeding was achieved. EBL: 600 Complications: none Weight: 3260 g 1 Minute 5 Minute 10 Minute Totals: 8 9 Associated attestation - Madeline Garcia MD - 12/16/2022 10:30 AM CDT I was present for and supervised the entire procedure(s). [facility] 2022-12-16 08:58:33 Formatting of this n ote might be different from the original. Problem: Intrapartum process (including labor pain) Goal: Absence of or reduction of complications of labor Outcome: Progressing as expected Goal: Able to cope with pain Outcome: Progressing as expected Goal: Adequate to move to next level of care Outcome: Progressing as expected Goal: Reduction in pain sensation Outcome: Progressing as expected Debbie Jansen RN [facility] 2022-12-15 23:52:58 Formatting of this n ote is different from the original. Name/ MRN / Age / Gender: Marla Harmon, [id number] 21 year old female BMI: Estimated body mass index is 39.28 kg/m? as calculated from the following: Height as of this encounter: 1.753 m (5' 9"). Weight as of this encounter: 120.7 kg (266 lb). Allergies: Patient has no known allergies. Last Vitals: BP Readings from Last 1 Encounters: 12/15/22 115/63 Pulse Readings from Last 1 Encounters: 12/15/22 81 SpO2 Readings from Last 1 Encounters: 12/15/22 98% Date of Surgery: 12/15/2022 Surgeon: * No surgeons listed * Procedure: CENTRAL NEURAXIAL BLOCK [facility] OUT OF OR - OR LOCATION Anesthesia Preop Eval (physical exam) Anesthesia Preop: Chart Review and Lulr-ai-Ehon Anesthesia History Anesthesia History Negative Previous Anesthetics/Airways Cardiovascular (+) Hypertension Pulmonary Negative Pulmonary ROS (-) Asthma Neuro/Musculoskeletal Negative Neuro/Musculosketal ROS (+) Obesity GI/Hepatic Negative GI/Hepatic ROS Hematology Negative Hematology ROS Comments: HGB (g/dL) Date Value 12/15/2022 11.5 (L) 12/15/22 1629 PLT 290 Renal Negative Renal ROS Comments: K (mmol/L) Date Value 06/20/2017 3.9 CREATININE (mg/dL) Date Value 06/20/2017 0.60 Skin (+) Current IV access Endo/Other Negative Endo/Other ROS Comments: No results found for: "[id number]" 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 ? sIOL - Denies VB, LOF, Ctx, DFM - SVE: 2 / 25% / -3 - [place]: quiescent - Plan: IOL w/ FB and pitocin ? GBS positive - PCN intrapartum ? Hx Trich - positive 05/2022, s/p tx - BOB negative ? Antepartum course reviewed - 1 h 75, sero negative, Rimmune, VZVimmune, B positive/IAT negative, GBS positive, Pap NILM 03/16/20 - H/H, plt: 10.1 / 31.0, 253 on 11/23/22 - [facility] ? Fetus - Presentation on admission: cephalic - anterior placenta - EFW: 3404 g, 47%tile - FHT reactive and reassuring - Normal anatomy scan Pediatric Pediatric N/A N/A Preoperative Medication Instructions Continue taking all prescribed medications except: SONIYA inhibitors, ARBs, diuretics, all oral diabetes medications Anticoagulant Therapy: Defer to surgeons Insulin: Take 1/2 dose the night prior to surgery. Hold on DOS. Phentermine: Alert [facility] anesthesiologist SGLT2 Inhibitors: "gliflozins" to be held for 3 days prior to elective surgeries MAC Cases: Continue taking SONIYA inhibitors and ARBs ASA Classification ASA: 2 Current Medications: No outpatient medications have been marked as taking for the 12/15/22 encounter (Hospital Encounter). Previous Surgeries: No past surgical history on file. Anesthesia Physical Exam General no apparent distress and alert and oriented x 3 Neuro/Psych Dental no notable dental hx Abdominal (+) gravid Airway Mallampati score:II TM distance:> 5 cm Neck ROM: full Mouth opening:normal (+) Normal facies Extremity Pulmonary pulmonary exam normal Other Cardiovascular cardiovascular exam normal Anesthesia Plan ASA Status: 2 Plan discussed during pre-op evaluation: General, Epidural, Spinal and CSE Anesthetic plan on DOS: Epidural Anesthesia plan discussed with: patient or b2b outside sales representative Post-Operative Analgesia: routine analgesia & antiemetics Recovery Plan: LDR Additional comments: T AN-ANESTHESIOLOGY ANESTHESIOLOGIST [facility] 2022-12-15 18:49:22 Formatting of this n ote might be different from the original. Problem: Intrapartum process (including labor pain) Goal: Absence of or reduction of complications of labor Outcome: Progressing as expected Goal: Able to cope with pain Outcome: Progressing as expected Goal: Adequate to move to next level of care Outcome: Progressing as expected Goal: Reduction in pain sensation Outcome: Progressing as expected [facility] 2022-12-15 15:42:58 Formatting of this n ote might be different from the original. Problem: Intrapartum process (including labor pain) Goal: Absence of or reduction of complications of labor Outcome: Progressing as expected Goal: Able to cope with pain Outcome: Progressing as expected Goal: Adequate to move to next level of care Outcome: Progressing as expected Goal: Reduction in pain sensation Outcome: Progressing as expected [facility]
[2024-01-10] MEDS ORDERED: ACETAMINOPHEN 500 MG TAB ONE (09:39)
[2024-01-10] MEDS ORDERED: predniSONE 20 MG TAB ONE (09:39)
[2024-01-10] MEDS ORDERED: LIDOCAINE VISCOUS 2% 10ML ORAL SOLN ONE (09:40)
[2024-01-10] MEDS ORDERED: KETOROLAC 30 MG/ML INJ ONE (09:40)
[2024-01-10] MEDS ORDERED: ONDANSETRON 4 MG (ODT) TAB ONE (09:40)
[2024-01-10 10:09] LABS: SARS-CoV-2 Antigen CONTROL BLUE LINE VIS/BG OK; SARS-CoV-2 Antigen Rapid Res Negative (Negative)
--- NOTE | 2024-01-10 10:15 | EDPHYS ---
Physician Documentation [facility] Name: Marla Harmon Age: 23 yrs Sex: Female : 2000 Arrival Date: 01/10/2024 Time: : Bed 13 Private MD: ED Physician Renny Brizuela HPI: 01/09 09:31 This 23 yrs old Female presents to ER via Ambulatory with complaints of Sore ec2 Throat. 09:31 Patient arrives today for evaluation of 2 days of sore throat. Reports that she has ec2 been having issues with sore throat, odynophagia, decreased p.o. intake as well as increased malaise and fevers. Patient reports no vomiting, no diarrhea symptoms. Patient reports no significant cough and cold symptoms. . 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 - Infectious Disease History:: Denies. - Social history:: Smoking status: Reported history of juuling and/or vaping. ROS: 09:31 Constitutional: as per hpi ec2 Exam: : Constitutional: GEN: NAD Head: atraumatic Eyes: EOMI Ears: External ears are normal. ec2 Mouth: Tonsillar exudate noted, tender anterior cervical lymphadenopathy noted. CV: Tachycardia LUNGS: no respiratory distress ABD: non-distended SKIN: no evidence of rashes MSK: no evidence of trauma Vital Signs: 09: BP 141 / 81; Pulse 117; Resp 18; Temp 98.8(O); Pulse Ox 100% on R/A; Weight 113.4 kg; iw Height 5 ft. 9 in. ; Pain 8/10; 10:34 BP 138 / 78; Pulse 99; Resp 18; Pulse Ox 100% on R/A; mb9 09:27 Body Mass Index 36.92 (113.40 kg, 175.26 cm) iw 09:27 Pain Scale: Adult iw MDM: 09:26 Patient medically screened. ec2 09:31 Data reviewed: vital signs. ED course: Patient arrives today for evaluation of ec2 odynophagia. Examination remarkable for HEENT findings as noted above. Will obtain strep swab, viral swab, will give the patient viscous lidocaine as well as steroid and medications for pain. Differential includes strep pharyngitis versus viral pharyngitis.. 10:14 ED course: Patient is positive for strep. Will start on antibiotics and discharged ec2 home. Return precautions given.. 01/09 09:31 Order name: Strep; Complete Time: 10:14 ec2 01/09 09:31 Order name: Influenza Screen (a \T\ B); Complete Time: 10:14 ec2 01/09 09:31 Order name: SARS RAPID; Complete Time: 10:14 ec2 Administered Medications: 09:46 Drug: Ketorolac IM 30 mg IM once Route: IM; Site: left deltoid; mb9 10:18 Follow up: Response: No adverse reaction mb9 09:46 Drug: predniSONE PO 40 mg PO once Route: PO; mb9 10:18 Follow up: Response: No adverse reaction mb9 09:46 Drug: Acetaminophen PO 1000 mg PO once Route: PO; mb9 10:18 Follow up: Response: No adverse reaction mb9 09:46 Drug: Ondansetron Oral Disintegrating Tablet Oral Disintegrating Tablet 4 mg PO once mb9 Route: PO; 10:18 Follow up: Response: No adverse reaction mb9 09:48 Drug: Viscous Lidocaine Mucous Membrane Liquid (4 %) 10 ml Mucous Membrane once Route: mb9 Mucous Membrane; 10:18 Follow up: Response: No adverse reaction mb9 10:26 Drug: Amoxicillin-Clavulanate PO 875 mg PO once Route: PO; mb9 10:34 Follow up: Response: No adverse reaction mb9 Disposition Summary: 01/10/24 10:15 Discharge Ordered Notes: Location: Home ec2 Condition: Stable ec2 Diagnosis - Acute pharyngitis, unspecified ec2 Followup: ec2 - With: Private Physician - When: - Reason: Re-evaluation by your physician Discharge Instructions: - Discharge Summary Sheet ec2 - Pharyngitis, [id number] ec2 Forms: - Work release form ec2 - Medication Reconciliation Form ec2 - Antibiotic Education ec2 - Prescription Opioid Use ec2 - Patient Portal Instructions ec2 - Leadership Thank You Letter ec2 Prescriptions: - Augmentin 875-125 mg Oral tablet - take 1 tablet ORAL route every 12 hours for 7 days; 14 tablet; Refills: 0, ec2 Product Selection Permitted - Prednisone 20 mg Oral Tablet - take 2 tablets ORAL route once daily for 5 days; 10 tablet; Refills: 0, Product ec2 Selection Permitted Signatures: Dispatcher [employer] Suzi Law RN RN iw Wilkerson, Luzma Cruz RN RN mb9 Renny Brizuela MD MD ec2
--- NOTE | 2024-01-10 10:15 | ER ---
Nurse's Notes [facility] Name: Marla Harmon Age: 23 yrs Sex: Female : 2000 Arrival Date: 01/10/2024 Time: 09:20 Bed 13 Private MD: Diagnosis: Acute pharyngitis, unspecified Presentation: 01/09 09:27 Chief complaint: Patient states: fever, sore throat , headache since yesterday. iw Coronavirus screen: Client presents with at least one sign or symptom that may indicate coronavirus-19. Ebola Screen: No symptoms or risks identified at this time. Initial Sepsis Screen: Does the patient meet any 2 criteria? HR > 90 bpm. Does the patient have a suspected source of infection? No. Patient's initial sepsis screen is negative. Risk Assessment: Do you want to hurt yourself or someone else? Patient reports no desire to harm self or others. Onset of symptoms was January 09, 2024. 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 - Infectious Disease History:: Denies. - Social history:: Smoking status: Reported history of juuling and/or vaping. Screenin:47 [facility] ED Fall Risk Assessment (Adult) History of falling in the last 3 months, mb9 including since admission No falls in past 3 months (0 pts) Confusion or Disorientation No (0 pts) Intoxicated or Sedated No (0 pts) Impaired Gait No (0 pts) Mobility Assist Device Used No (0 pt) Altered Elimination No (0 pt) Score/Fall Risk Level 0 - 2 = Low Risk Oriented to surroundings, Maintained a safe environment, Educated pt \T\ family on fall prevention, incl call for assistance when getting out of bed. Abuse screen: Denies threats or abuse. Nutritional screening: No deficits noted. Tuberculosis screening: No symptoms or risk factors identified. Assessment: 09:46 General: Appears in no apparent distress. Behavior is calm, cooperative. Pain: mb9 Complains of pain in throat Pain does not radiate. Pain currently is 8 out of 10 on a pain scale. Quality of pain is described as throbbing. Neuro: Borges Agitation-Sedation Scale (RASS): 0 - Alert and Calm Level of Consciousness is awake, alert, obeys commands, Oriented to person, place, time, situation, Appropriate for age. Cardiovascular: Patient's skin is warm and dry. Respiratory: Airway is patent Respiratory effort is even, unlabored, Respiratory pattern is regular, symmetrical, Breath sounds are clear bilaterally. GI: No signs and/or symptoms were reported involving the gastrointestinal system. : No signs and/or symptoms were reported regarding the genitourinary system. EENT: Throat is reddened. Derm: Skin is pink, warm \T\ dry. Musculoskeletal: Range of motion: intact in all extremities. 10:34 Reassessment: No changes from previously documented assessment. Patient and/or family mb9 updated on plan of care and expected duration. Pain level reassessed. Patient is alert, oriented x 3, equal unlabored respirations, skin warm/dry/pink. Vital Signs: 09:27 BP 141 / 81; Pulse 117; Resp 18; Temp 98.8(O); Pulse Ox 100% on R/A; Weight 113.4 kg; iw Height 5 ft. 9 in. ; Pain 8/10; 10:34 BP 138 / 78; Pulse 99; Resp 18; Pulse Ox 100% on R/A; mb9 09:27 Body Mass Index 36.92 (113.40 kg, 175.26 cm) iw 09:27 Pain Scale: Adult iw ED Course: 09:22 Patient arrived in ED. mr 09:23 Renny Brizuela MD is Attending Physician. ec2 09:28 Triage completed. iw 09:28 Arm band placed on. iw 09:32 Luzma Garcia RN is Primary Nurse. mb9 09:41 SARS RAPID Sent. bc6 09:41 Influenza Screen (a \T\ B) Sent. bc6 09:41 Strep Sent. bc6 09:42 COVID swab sent to lab. Flu and/or RSV swab sent to lab. Strep swab sent to lab. bc6 09:47 Placed in gown. Bed in low position. Call light in reach. Side rails up X 1. Provided mb9 Education on: press call light if needing anything. Client placed on continuous cardiac and pulse oximetry monitoring. NIBP monitoring applied. Door closed. Noise minimized. Warm blanket given. Pillow given. 09:48 No provider procedures requiring assistance completed. mb9 10:34 Patient did not have IV access during this emergency room visit. mb9 Administered Medications: 09:46 Drug: Ketorolac IM 30 mg IM once Route: IM; Site: left deltoid; mb9 10:18 Follow up: Response: No adverse reaction mb9 09:46 Drug: predniSONE PO 40 mg PO once Route: PO; mb9 10:18 Follow up: Response: No adverse reaction mb9 09:46 Drug: Acetaminophen PO 1000 mg PO once Route: PO; mb9 10:18 Follow up: Response: No adverse reaction mb9 09:46 Drug: Ondansetron Oral Disintegrating Tablet Oral Disintegrating Tablet 4 mg PO once mb9 Route: PO; 10:18 Follow up: Response: No adverse reaction mb9 09:48 Drug: Viscous Lidocaine Mucous Membrane Liquid (4 %) 10 ml Mucous Membrane once Route: mb9 Mucous Membrane; 10:18 Follow up: Response: No adverse reaction mb9 10:26 Drug: Amoxicillin-Clavulanate PO 875 mg PO once Route: PO; mb9 10:34 Follow up: Response: No adverse reaction mb9 Medication: 09:47 VIS not applicable for this client. mb9 Outcome: 10:15 Discharge ordered by . ec2 10:34 Discharged to home ambulatory, mb9 10:34 Condition: stable 10:34 Discharge instructions given to patient, Instructed on discharge instructions, follow up and referral plans. Demonstrated understanding of instructions, follow-up care, medications, Prescriptions given X 2, 10:34 Patient left the ED. mb9 Signatures: Luzma Phipps, Reg Reg Suzi Hines RN RN dolly Garcia, Luzma Cruz RN RN mb9 Chaparrita Nielson Edwin, MD MD ec2 Corrections: (The following items were deleted from the chart) 09:30 09:27 BP 141 / 81; Pulse 117bpm; Resp 18bpm; Pulse Ox 100% RA; Temp 98.8F Oral; iw iw
[2024-01-10] MEDS ORDERED: AMOX/K CLAV 875 MG TAB ONE (10:21)
[2024-01-10 10:44] VITALS: TEMP 98.8; O2SAT 100
[2024-01-10 10:46] VITALS: BP 138/78
== END 2024-01-10 10:34 | disposition home or self-care (01) ==
LOC: ER 09:20
DX: J02.9 Acute pharyngitis, unspecified (principal); Z11.52 Encounter for screening for COVID-19
CPT/HCPCS: 36415; 87081; 87804; 87811; J7512; Q0162

== ENCOUNTER 2025-01-02 10:44 | Emergency (ER) | payer SELFPAY ==
--- OUTSIDE RECORDS SUMMARY | 2025-01-02 10:56 | XMS REPORT | Continuity of Care Document ---
Author Name Unknown Address [address] [facility] [place] [address] [facility] [place] Address [address] [facility] [facility] [place] [address] Care Team Providers Care Hardware Installer Name Role Phone Lyudmila Johnson Primary Care Physicia n Janki Conner Attending Clinician [phone] SIMONA APARICIO Attending Clinician Simona Yu CNM Attending Clinician [phone] Doctor Unassigned, [place] Attending Clinician U navailLYUDMILA Treviño Attending Clinician Unavail able Lyudmila Johnson Attending Clinician + KARRI DAY Attending Clinician Paolo Day MD, Karri Gamboa Attending Clinician + Abimbola Zimmerman MD Attending Clinician [phone] Winifred Taylor MD Attending Clinician [phone] MARIA G JASSO Attending Clinician LUCILLE Andrews Attending Clinician LUCILLE Rowan Attending Clinician Lizzeth madden 1, [facility] Room Attending Clinician Autumn Nieves DO Parvez Attending Clinician [phone] MEG PARVEZ Attending Clinician Unavailable Ultrasound, Ang[facility] Attending Clinician UnavailMadeline Rai MD Attending Clinician [phone] MADELINE GARCIA Attending Clinician Unavailable MADELINE GARCIA Attending Clinician Unavailable Lab, [facility] Attending Clinician Unavailable Lab, [facility] Attending Clinician Unavailable Ivana MSN, Tonya Rivers Attending Clinician [phone] Provider, [facility] Temp Attending Clinician Jessica vailable UNKNOWN, ATTENDING Attending Clinician Unavailab vivek Woods MOTTLE LAY UP OPERATOR, Hellen Cortez Attending Clinician Unava ilable Ho SIGNALING DESIGN ENGINEER, Rachana Cortez Attending Clinician Unava ilable Sergio Gastelum Attending Clinician [phone] Tye Travis DO Attending Clinician [phone] HELLEN WOODS Attending Clinician Unavailab [place] Chun Attending Clinician Unavailabl Rosalina Butcher DO Attending Clinician [phone] [place] Ramachandran Attending Clinician [phone] KARRI DAY Admitting Clinician Unav Karri Ruano MD Admitting Clinician + LUCILLE FOSTER Admitting Clinician Unamarli madden Payers Payer Name Policy Type Policy Number Effective Date Expirati on Date Source [facility] [id number] 2022 00:00:00 MEDICAID PENDING PENDING 2020 00:00:00 Problems Condition Name Condition Details Condition Category Status Onset Date Resolution Date Last Treatment Date Treating Clinician Comments Source Engages in vaping Engages in vaping Disease Active 2022-04 00:00: 00 [facility] Elevated blood pressure reading without diagnosis of hypertensi on Elevated blood pressure reading without diagnosis of hypertensi on Disease Active 2022-04 00:00: 00 [facility] Obesity (BMI 30-39.9) Obesity (BMI 30-39.9) Disease Active 2023-0 8-28 00:00: 00 [facility] Anemia of mother in , antepartum Anemia of mother in , antepartum Disease Active 2022-0 6-26 00:00: 00 [facility] Declines flu vaccine Declines flu vaccine Disease Active 2019-04 2-14 00:00: 00 [facility] Declines flu vaccine Declines flu vaccine Disease Active 2019-04 2-14 00:00: 00 [facility] Obesity (BMI 30-39.9) Obesity (BMI 30-39.9) Disease Active 2018-0 4-02 00:00: 00 [facility] Anemia, Anemia, Disease Resolve d 2022-1 0-06 00:00: 00 2023-03-08 00:00:00 2023-03-08 11:56:03 [facility] Lump or mass in breast Lump or mass in breast Disease Resolve d 2021-0 2-23 00:00: 00 2023-03-08 00:00:00 2023-03-08 11:56:00 [facility] 39 weeks gestation of 39 weeks gestation of Disease Resolve d 2022-0 9-14 00:00: 00 2023-01-06 00:00:00 2023-01-06 10:51:59 [facility] Irregular uterine contractio ns Irregular uterine contractio ns Disease Resolve d 2022-0 8-28 00:00: 00 2023-01-06 00:00:00 2023-01-06 10:51:52 [facility] GBS (group B Streptococ cus carrier), +RV culture, 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 Pending bob [facility] UTI in UTI in Disease Resolve d 0 1-30 00:00: 00 2023-01-06 00:00:00 2023-01-06 10:51:49 Overview: Formattin g of this note might be different from the original. Pending bob [facility] Supervisio n of high-risk Supervisio n of high-risk Disease Resolve d 0 1-25 00:00: 00 2023-01-06 00:00:00 2023-01-06 10:51:53 [facility] Multiparit y Multiparit y Disease Resolve d 1-25 00:00: 00 2023-01-06 00:00:00 2023-01-06 10:51:54 [facility] History of gestationa l hypertensi on History of gestationa l hypertensi on Disease Resolve d 0 1-25 00:00: 00 2023-01-06 00:00:00 2023-01-06 10:51:55 [facility] Chlamydia trachomati s infection of lower genitourin kaycee sites Chlamydia trachomati s infection of lower genitourin kaycee sites Disease Resolve d 2018-0 5-29 00:00: 00 2023-01-06 00:00:00 2023-01-06 10:52:59 Overview: Formattin g of this note might be different from the original. BOB neg [facility] Obesity in Obesity in Disease Resolve d 2018-0 4-02 00:00: 00 2023-01-06 00:00:00 2023-01-06 10:52:00 [facility] Other general counseling and advice for contracept rianna management Other general counseling and advice for contracept rianna management Disease Resolve d 0 2-23 00:00: 00 2022-04-27 00:00:00 2022-04-27 10:12:29 [facility] Menorrhagi a with regular cycle Menorrhagi a with regular cycle Disease Resolve d 2019-04 2-14 00:00: 00 2022-04-27 00:00:00 2022-04-27 10:12:44 [facility] Class 3 severe obesity with body mass index (BMI) of 40.0 to 44.9 in adult, unspecifie d obesity type, unspecifie d whether serious comorbidit y present Class 3 severe obesity with body mass index (BMI) of 40.0 to 44.9 in adult, unspecifie d obesity type, unspecifie d whether serious comorbidit y present Disease Resolve d 2019-04 2 00:00: 00 2022-02-10 00:00:00 2022-02-10 21:37:29 [facility] Breakthrou gh bleeding on Nexplanon Breakthrou gh bleeding on Nexplanon Disease Resolve d 5-29 00:00: 00 2022-02-10 00:00:00 2022-02-10 21:37:19 [facility] Nexplanon removal Nexplanon removal Disease Resolve d 4-18 00:00: 00 2022-02-10 00:00:00 2022-02-10 21:37:27 [facility] Screen for STD (sexually transmitte d disease) Screen for STD (sexually transmitte d disease) Disease Resolve d 4-02 00:00: 00 2022-02-10 00:00:00 2022-02-10 21:37:38 [facility] BMI 40.0-44.9, adult BMI 40.0-44.9, adult Disease Resolve d 2019-04 2 00:00: 00 2021-05-26 00:00:00 2021-05-26 10:31:48 [facility] Allergies, Adverse Reactions, Alerts Allergy Name Allergy Type Status Severity Reaction(s) Onset Date Inactive Date Treating Clinician Comments Source NO KNOWN ALLERGIE S Drug Class Active [facility] Social History Social Habit Start Date Stop Date Quantity Comments Source ASSERTION 2022-03-31 00:00:00 Not [facility] Alcoholic beverage intake 2024-08-26 00:00:00 2024-08-26 00:00:00 Current drinker of alcohol (finding) [facility] History of Social function 2024-08-22 00:00:00 2024-08-22 00:00:00 [facility] Cigarettes smoked current (pack per day) - Reported 2024-08-22 00:00:00 2024-08-22 00:00:00 [facility] Cigarette pack-years 2024-08-22 00:00:00 2024-08-22 00:00:00 [facility] Tobacco use and exposure 2024-08-22 00:00:00 2024-08-22 00:00:00 User of smokeless tobacco [facility] Tobacco Comment 2023-03-08 00:00:00 2023-03-08 00:00:00 Daily vaping [facility] Alcohol intake 2023-03-08 00:00:00 2023-03-08 00:00:00 Current drinker of alcohol (finding) [facility] Alcohol Comment 2023-03-08 00:00:00 2023-03-08 00:00:00 socially [facility] Exposure to SARS-CoV-2 (event) 2022-08-07 00:00:00 2022-08-17 10:24:00 Not sure [facility] History of tobacco use 2016-07-03 00:00:00 2022-04-16 00:00:00 Cigarette Smoker [facility] History SDOH Alcohol Frequency 2020-03-16 00:00:00 2020-03-16 00:00:00 3 [facility] History SDOH Alcohol Std Drinks 2020-03-16 00:00:00 2020-03-16 00:00:00 99 [facility] History SDOH Alcohol Binge 2020-03-16 00:00:00 2020-03-16 00:00:00 99 [facility] Sex assigned at 2000 00:00:00 2000 00:00:00 [facility] Smoking Status Start Date Stop Date Source Ex-smoker 2024-08-22 00:00:00 2024-08-22 00:00:00 [facility] Smokes tobacco daily 2020-03-16 00:00:00 [facility] Medications Ordered Medication Name Filled Medication Name Start Date Stop Date Current Medication? Ordering Clinician Indication Dosage Frequency Signature (SIG) Comments Components Source metroNIDAZO LE 500 mg tablet 08-26 00:00: 00 Yes [id number] 500mg Take 1 tablet by mouth in the morning and 1 tablet in the evening. [facility] sulfamethox azole-trime thoprim (BACTRIM DS) 800-160 mg per tablet 08-22 00:00: 00 Yes [id number] 1{tbl} Take 1 tablet by mouth in the morning and 1 tablet in the evening. [facility] etonogestre L (NEXPLANON) implant 68 mg 2022-04 17:30: 00 03-08 17:30 :00 No [id number] 68mg [facility] ibuprofen 600 mg tablet 12-17 00:00: 00 03-08 00:00 :00 No [id number] 600mg Take 1 tablet by mouth every 6 (six) hours as needed (Pain). Take with food or milk. [facility] docusate 100 mg capsule 12-17 00:00: 00 01-07 00:00 :00 No [id number] 200mg Take 2 capsules by mouth once daily as needed for Constipati on. [facility] rho(D) immune globulin (RHOGAM) syringe 300 mcg 12-16 19:33: 55 Yes 300ug 300 mcg, Intramuscu lar, ONCE, For 1 dose, Conditiona l, Routine [facility] ibuprofen (IBU) tablet 600 mg 12-16 19:33: 51 Yes 600mg 600 mg, Oral, Q6HPRN, Starting on Mon12/16/22 at 1433, Until Discontinu ed, Routine, Pain (scale 4-6) [facility] acetaminoph en (TYLENOL) tablet 650 mg 12-16 19:33: 51 Yes 650mg 650 mg, Oral, Q6HPRN, Starting on Mon12/16/22 at 1433, Until Discontinu ed, Routine, Pain (scale 1-3) [facility] diphenhydrA MINE (BENADRYL) tablet 25 mg 12-16 19:33: 51 Yes 25mg 25 mg, Oral, Q6HPRN, Starting on Mon12/16/22 at 1433, Until Discontinu ed, Routine, Sleep, Itching [facility] ondansetron (ZOFRAN (PF)) injection 4 mg 12-16 19:33: 51 Yes 4mg 4 mg, Slow IV Push, Q8HPRN, Starting on Mon12/16/22 at 143, Until Discontinu ed, Routine, Nausea and Vomiting (N/V) [facility] simethicone (GAS RELIEF (SIMETHICON E)) chewable tablet 160 mg 12-16 19:33: 51 Yes 160mg 160 mg, Oral, PC+HSPRN, Starting on Mon12/16/22 at 1433, Until Discontinu ed, Routine, Gas [facility] docusate (COLACE) capsule 200 mg 12-16 19:33: 51 Yes 200mg 200 mg, Oral, QDAILYPRN, Starting on Mon12/16/22 at 1433, Until Discontinu ed, Routine, Constipati on [facility] magnesium hydroxide (MILK OF MAGNESIA) 400 mg/5 mL suspension 30 mL 12-16 19:33: 51 Yes 30mL 30 mL, Oral, QDAILYPRN, Starting on Mon12/16/22 at 1433, Until Discontinu ed, Routine, Constipati on [facility] benzocaine- menthol (DERMOPLAST ) 20-0.5 % topical spray 12-16 19:33: 51 Yes Topical, PRN, Starting on Mon12/16/22 at 1433, Until Discontinu ed, Routine, Perineum discomfort [facility] miSOPROStoL (CYTOTEC) tablet 1,000 mcg 12-16 16:15: 00 12-16 14:45 :00 No 1000ug 1,000 mcg, Rectal, ONCE, 1 dose, On Mon12/16/22 at 1115, Routine [facility] carboprost (HEMABATE) injection 250 mcg 12-16 14:55: 00 12-16 14:33 :00 No 250ug 250 mcg, Intramuscu lar, ONCE, 1 dose, On Mon12/16/22 at 1000, Routine [facility] methylergon ovine (METHERGINE ) injection 0.2 mg 12-16 14:54: 00 12-16 14:22 :00 No .2mg 0.2 mg, Intramuscu lar, ONCE NOW, 1 dose, On Mon12/16/22 at 1000, Routine [facility] diphenoxyla te-atropine (LOMOTIL) 2.5-0.025 mg tablet 1 tablet 12-16 14:29: 25 Yes 1{tbl} 1 tablet, Oral, Q6HPRN, Starting on Mon12/16/22 at 0929, Until Discontinu ed, Routine, diarrhea [facility] ibuprofen (IBU) tablet 600 mg 12-16 14:09: 58 12-16 19:33 :54 No 600mg 600 mg, Oral, Q6HPRN, Starting on Mon12/16/22 at 0909, Until Mon12/16/22 at 1433, Routine, Pain (scale 1-3) [facility] oxytocin (PITOCIN) 30 units in NS 500 mL IV infusion 12-16 14:09: 48 12-16 19:33 :54 No 300mL/h 300 mL/hr, IV Infusion, SEE-INSTRU CTIONS, Starting on Mon12/16/[address] at 300 mL/hr for 1 hr then 150 mL/hr for 1 hr. For post delivery uterotonic .
[facility] amnioinfusi on IV infusion via GRAVITY 0.9 [...] until the liter is complete.& nbsp;&nbsp ;Notify Addresser if uterine resting tone exceeds 25 mmHg at any time during the amnioinfus ion. Obst etrics (GARRETT) Aminoinfus ion Orders
[facility] ondansetron (ZOFRAN (PF)) injection 4 mg 12-16 08:15: 00 12-16 14:01 :00 No 4mg 4 mg, Slow IV Push, ONCE, On Mon12/16/22 at 0315, For 1 dose
Do ses of ondansetro n 16 mg and above need to be administer ed via IV piggyback. For Dose >=24mg ECG monitoring is advisable.
[facility] ropivacaine 0.2 % (NAROPIN (PF)) epidural infusion 12-16 05:52: 00 12-16 16:22 :45 No Epidural, CONTINUOUS PRN, Starting on Mon12/16/22 at 0052, Until Discontinu ed, Routine, Intra-op [facility] lidocaine-e pinephrine (XYLOCAINE W/EPINEPHRI NE) 1.5 %-1:200,000 injection 12-16 05:49: 00 12-16 16:22 :45 No Intraderma l, ONCE INTRA PROCEDURE, Starting on Mon12/16/22 at 0049, Until Discontinu ed, Routine, Intra-op [facility] sodium citrate-cit rickey acid (BICITRA) 500-334 mg/5 mL solution 30 mL 12-16 04:46: 41 12-16 05:26 :00 No 30mL 30 mL, Oral, PRE-PROCED URE ONCE, 1 dose, Starting on Fabi 12/15/22 at 2346, Until Mon12/16/22 at 0026, Routine, Surgery/Pr ocedure [facility] lactated ringers IV infusion 500 mL 12-16 04:46: 41 12-16 05:11 :19 No 500mL at 999 mL/hr, 500 mL, IV Infusion, PRN - SEE INSTRUCTIO NS, 1 dose, Starting on Fabi 12/15/22 at 2346, Until Mon12/16/22 at 0011, Routine [facility] oxytocin (PITOCIN) 30 units in NS 500 mL IV infusion 12-15 21:03: 38 12-16 19:33 :54 No 2mU/min at 2-40 mL/hr, IV Infusion, TITRATE, Starting on Fabi 12/15/22 at 1603, Until Mon12/16/22 at 1433, JERONIMO [facility] D5W-LR IV infusion 1,000 mL 12-15 21:01: 30 12-16 19:33 :54 No 1000mL at 1-125 mL/hr, IV Infusion, TITRATE, Starting on Fabi 12/15/22 at 1601, Until Mon12/16/22 at 1433, Routine [facility] ascorbic acid, vitamin C, 500 mg tablet 09-26 00:00: 00 01-07 00:00 :00 No [id number] 500mg Take 1 tablet by mouth in the morning and 1 tablet at noon and 1 tablet in the evening. [facility] ferrous sulfate 325 mg (65 mg iron) tablet 09-26 00:00: 00 12-17 00:00 :00 No [id number] 325mg Take 1 tablet by mouth in the morning and 1 tablet in the evening. [facility] metroNIDAZO LE 500 mg tablet -07 00:00: 00 05-11 05:59 :00 No [id number] 2000mg Take 4 tablets by mouth once now for 1 dose. [facility] ampicillin 500 mg capsule 1-30 00:00: 00 05-13 05:59 :00 No [id number] 500mg Take 1 capsule by mouth 4 (four) times daily for 10 days. [facility] multivitami n ( VITAMIN) tablet 04-27 00:00: 00 Yes [id number] 1{tbl} Take 1 tablet by mouth in the morning. [facility] multivitami n ( VITAMIN) tablet 04-27 00:00: 00 03-08 00:00 :00 No [id number] 1{tbl} Take 1 tablet by mouth in the morning. [facility] proMETHazin e 25 mg tablet 04-27 00:00: 00 01-07 00:00 :00 No [id number] 25mg Take 1 tablet by mouth every 6 (six) hours as needed for Nausea and Vomiting (N/V). [facility] Nitrofurant oin&Nit. Macrocryst 100 mg capsule 04-17 00:00: 00 11-23 00:00 :00 No TAKE 1 CAPSULE BY MOUTH EVERY 12 HOURS FOR 7 DAYS [facility] No known medications 2021-04 10:28: 59 No No known medication s [facility] doxycycline hyclate 100 mg capsule 2021-04 00:00: 00 02-19 05:59 :00 No [id number] 100mg Take 1 capsule by mouth every 12 (twelve) hours for 7 days. [facility] azithromyci n (ZITHROMAX) 500 mg tablet 2021-04 00:00: 00 02-11 05:59 :00 No [id number] 04 1000mg Take 2 tablets by mouth once now for 1 dose. [facility] No known medications 07-01 16:12: 46 No [facility] azithromyci n 500 mg tablet 08-31 00:00: 00 05-26 00:00 :00 No TAKE 2 TABLETS BY MOUTH ONCE NOW FOR 1 DOSE [facility] Immunizations Ordered Immunization Name Filled Immunization Name Date Status Comments Source HEPATITIS A 2023-03-08 10:30:00 Completed [facility] HPV 2023-03-08 10:30:00 Completed [facility] Meningococcal Polysaccharide (groups A, C, Y and W-135) conjugate vaccine (MCV4P) 2023-03-08 10:30:00 Completed [facility] HPV9 2023-03-08 10:30:00 Completed [facility] Influenza Virus Vaccine Quad .5 mL IM 6+ MO (FLUZONE/FLULAVAL/FLU ARIX) 2023-03-08 10:30:00 Completed [facility] TDAP 2023-03-08 10:30:00 Completed [facility] DTaP, Unspecified Formulation 2023-03-08 10:30:00 Completed [facility] Hep B, Adol or Pedi Dosage 2023-03-08 10:30:00 Completed [facility] Hib-HbOC 2023-03-08 10:30:00 Completed [facility] MMR 2023-03-08 10:30:00 Completed [facility] IPV 2023-03-08 10:30:00 Completed [facility] Varicella (varivax)(chicken pox) 2023-03-08 10:30:00 Completed [facility] HPV9 2023-03-08 00:00:00 Completed [facility] Influenza Virus Vaccine Quad .5 mL IM 6+ MO (FLUZONE/FLULAVAL/FLU ARIX) 2023-03-08 00:00:00 Completed [facility] TDAP 2023-03-08 00:00:00 Completed [facility] DTaP, Unspecified Formulation 2023-03-08 00:00:00 Completed [facility] HEPATITIS A 2023-03-08 00:00:00 Completed [facility] Hep B, Adol or Pedi Dosage 2023-03-08 00:00:00 Completed [facility] Hib-HbOC 2023-03-08 00:00:00 Completed [facility] HPV 2023-03-08 00:00:00 Completed [facility] Meningococcal Polysaccharide (groups A, C, Y and W-135) conjugate vaccine (MCV4P) 2023-03-08 00:00:00 Completed [facility] MMR 2023-03-08 00:00:00 Completed [facility] IPV 2023-03-08 00:00:00 Completed [facility] Varicella (varivax)(chicken pox) 2023-03-08 00:00:00 Completed [facility] HPV9 2023-01-26 00:00:00 Completed [facility] Influenza Virus Vaccine Quad .5 mL IM 6+ MO (FLUZONE/FLULAVAL/FLU ARIX) 2023-01-26 00:00:00 Completed [facility] TDAP 2023-01-26 00:00:00 Completed [facility] DTaP, Unspecified Formulation 2023-01-26 00:00:00 Completed [facility] HEPATITIS A 2023-01-26 00:00:00 Completed [facility] Hep B, Adol or Pedi Dosage 2023-01-26 00:00:00 Completed [facility] Hib-HbOC 2023-01-26 00:00:00 Completed [facility] HPV 2023-01-26 00:00:00 Completed [facility] Meningococcal Polysaccharide (groups A, C, Y and W-135) conjugate vaccine (MCV4P) 2023-01-26 00:00:00 Completed [facility] MMR 2023-01-26 00:00:00 Completed [facility] IPV 2023-01-26 00:00:00 Completed [facility] Varicella (varivax)(chicken pox) 2023-01-26 00:00:00 Completed [facility] HPV9 2023-01-06 10:00:00 Completed [facility] Influenza Virus Vaccine Quad .5 mL IM 6+ MO (FLUZONE/FLULAVAL/FLU ARIX) 2023-01-06 10:00:00 Completed [facility] TDAP 2023-01-06 10:00:00 Completed [facility] DTaP, Unspecified Formulation 2023-01-06 10:00:00 Completed [facility] HEPATITIS A 2023-01-06 10:00:00 Completed [facility] Hep B, Adol or Pedi Dosage 2023-01-06 10:00:00 Completed [facility] Hib-HbOC 2023-01-06 10:00:00 Completed [facility] HPV 2023-01-06 10:00:00 Completed [facility] Meningococcal Polysaccharide (groups A, C, Y and W-135) conjugate vaccine (MCV4P) 2023-01-06 10:00:00 Completed [facility] MMR 2023-01-06 10:00:00 Completed [facility] IPV 2023-01-06 10:00:00 Completed [facility] Varicella (varivax)(chicken pox) 2023-01-06 10:00:00 Completed [facility] TDAP 2022-10-07 00:00:00 Completed [facility] TDAP 2022-10-07 00:00:00 Completed [facility] TDAP 2022-10-07 00:00:00 Completed [facility] TDAP 2022-10-07 00:00:00 Completed [facility] TDAP 2022-10-07 00:00:00 Completed [facility] TDAP 2022-10-07 00:00:00 Completed [facility] TDAP 2022-10-07 00:00:00 Completed [facility] TDAP 2022-10-07 00:00:00 Completed [facility] TDAP 2022-10-07 00:00:00 Completed [facility] TDAP 2022-10-07 00:00:00 Completed [facility] TDAP 2022-10-07 00:00:00 Completed [facility] TDAP 2022-10-07 00:00:00 Completed HPV9 2022-10-02 00:00:00 Completed [facility] Influenza Virus Vaccine Quad .5 mL IM 6+ MO (FLUZONE/FLULAVAL/FLU ARIX) 2022-10-02 00:00:00 Completed [facility] DTaP, Unspecified Formulation 2022-10-02 00:00:00 Completed [facility] HEPATITIS A 2022-10-02 00:00:00 Completed [facility] Hep B, Adol or Pedi Dosage 2022-10-02 00:00:00 Completed [facility] Hib-HbOC 2022-10-02 00:00:00 Completed [facility] HPV 2022-10-02 00:00:00 Completed [facility] Meningococcal Polysaccharide (groups A, C, Y and W-135) conjugate vaccine (MCV4P) 2022-10-02 00:00:00 Completed [facility] MMR 2022-10-02 00:00:00 Completed [facility] IPV 2022-10-02 00:00:00 Completed [facility] TDAP 2022-10-02 00:00:00 Completed [facility] Varicella (varivax)(chicken pox) 2022-10-02 00:00:00 Completed [facility] HPV9 2022-08-18 00:00:00 Completed [facility] Influenza Virus Vaccine Quad .5 mL IM 6+ MO (FLUZONE/FLULAVAL/FLU ARIX) 2022-08-18 00:00:00 Completed [facility] DTaP, Unspecified Formulation 2022-08-18 00:00:00 Completed [facility] HEPATITIS A 2022-08-18 00:00:00 Completed [facility] Hep B, Adol or Pedi Dosage 2022-08-18 00:00:00 Completed [facility] Hib-HbOC 2022-08-18 00:00:00 Completed [facility] HPV 2022-08-18 00:00:00 Completed [facility] Meningococcal Polysaccharide (groups A, C, Y and W-135) conjugate vaccine (MCV4P) 2022-08-18 00:00:00 Completed [facility] MMR 2022-08-18 00:00:00 Completed [facility] IPV 2022-08-18 00:00:00 Completed [facility] TDAP 2022-08-18 00:00:00 Completed [facility] Varicella (varivax)(chicken pox) 2022-08-18 00:00:00 Completed [facility] HPV9 2021-12-30 00:00:00 Completed [facility] Influenza Virus Vaccine Quad .5 mL IM 6+ MO (FLUZONE/FLULAVAL/FLU ARIX) 2021-12-30 00:00:00 Completed [facility] DTaP, Unspecified Formulation 2021-12-30 00:00:00 Completed [facility] HEPATITIS A 2021-12-30 00:00:00 Completed [facility] Hep B, Adol or Pedi Dosage 2021-12-30 00:00:00 Completed [facility] Hib-HbOC 2021-12-30 00:00:00 Completed [facility] HPV 2021-12-30 00:00:00 Completed [facility] Meningococcal Polysaccharide (groups A, C, Y and W-135) conjugate vaccine (MCV4P) 2021-12-30 00:00:00 Completed [facility] MMR 2021-12-30 00:00:00 Completed [facility] IPV 2021-12-30 00:00:00 Completed [facility] TDAP 2021-12-30 00:00:00 Completed [facility] Varicella (varivax)(chicken pox) 2021-12-30 00:00:00 Completed [facility] HPV9 2021-05-26 00:00:00 Completed [facility] HPV9 2021-05-26 00:00:00 Completed [facility] HPV9 2021-05-26 00:00:00 Completed [facility] HPV9 2021-05-26 00:00:00 Completed [facility] HPV9 2021-05-26 00:00:00 Completed [facility] HPV9 2021-05-26 00:00:00 Completed HPV9 2021-05-26 00:00:00 Completed [facility] HPV9 2021-05-26 00:00:00 Completed [facility] HPV9 2021-05-26 00:00:00 Completed [facility] HPV9 2021-05-26 00:00:00 Completed [facility] HPV9 2021-05-26 00:00:00 Completed [facility] HPV9 2021-05-26 00:00:00 Completed [facility] HPV9 2021-05-26 00:00:00 Completed [facility] HPV9 2021-05-26 00:00:00 Completed [facility] HPV9 2021-05-26 00:00:00 Completed [facility] HPV9 2021-05-26 00:00:00 Completed [facility] HPV9 2021-05-26 00:00:[address] [facility] HPV9 2021-05-26 00:00:[address] [facility] HPV9 2021-05-26 00:00:[address] [facility] HPV9 2021-05-26 00:00:[address] [facility] HPV9 2021-05-26 00:00:[address] [facility] HPV9 2021-05-26 00:00:[address] [facility] HPV9 2021-05-26 00:00:[address] [facility] HPV9 2021-05-26 00:00:[address] [facility] HPV9 2021-05-26 00:00:[address] [facility] HPV9 2021-05-26 00:00:[address] [facility] HPV9 2021-05-26 00:00:00 Completed [facility] HPV9 2021-05-26 00:00:[address] [facility] HPV9 2021-05-26 00:00:[address] [facility] HPV9 2021-05-26 00:00:[address] [facility] HPV9 2021-05-26 00:00:[address] [facility] HPV9 2021-05-26 00:00:[address] [facility] HPV9 2021-05-26 00:00:[address] [facility] HPV9 2021-05-26 00:00:[address] [facility] HPV9 2021-05-26 00:00:00 Completed [facility] HPV9 2021-05-26 00:00:00 Completed [facility] HPV9 2021-05-26 00:00:00 Completed [facility] HPV9 2021-05-26 00:00:[address] [facility] HPV9 2021-05-26 00:00:00 Completed [facility] HPV9 2021-05-26 00:00:[address] [facility] HPV9 2021-05-26 00:00:[address] [facility] HPV9 2021-05-26 00:00:[address] [facility] HPV9 2021-05-26 00:00:00 Completed [facility] HPV9 2021-05-26 00:00:00 Completed [facility] HPV9 2020-08-24 00:00:00 Completed [facility] Influenza Virus Vaccine Quad .5 mL IM 6+ MO (FLUZONE/FLULAVAL/FLU ARIX) 2020-08-24 00:00:00 Completed [facility] DTaP, Unspecified Formulation 2020-08-24 00:00:00 Completed [facility] HEPATITIS A 2020-08-24 00:00:00 Completed [facility] Hep B, Adol or Pedi Dosage 2020-08-24 00:00:00 Completed [facility] Hib-HbOC 2020-08-24 00:00:00 Completed [facility] HPV 2020-08-24 00:00:00 Completed [facility] Meningococcal Polysaccharide (groups A, C, Y and W-135) conjugate vaccine (MCV4P) 2020-08-24 00:00:00 Completed [facility] MMR 2020-08-24 00:00:00 Completed [facility] IPV 2020-08-24 00:00:00 Completed [facility] TDAP 2020-08-24 00:00:00 Completed [facility] Varicella (varivax)(chicken pox) 2020-08-24 00:00:00 Completed [facility] HPV9 2020-06-02 00:00:00 Completed [facility] Influenza Virus Vaccine Quad .5 mL IM 6+ MO (FLUZONE/FLULAVAL/FLU ARIX) 2020-06-02 00:00:00 Completed [facility] DTaP, Unspecified Formulation 2020-06-02 00:00:00 Completed [facility] HEPATITIS A 2020-06-02 00:00:00 Completed [facility] Hep B, Adol or Pedi Dosage 2020-06-02 00:00:00 Completed [facility] Hib-HbOC 2020-06-02 00:00:00 Completed [facility] HPV 2020-06-02 00:00:00 Completed [facility] Meningococcal Polysaccharide (groups A, C, Y and W-135) conjugate vaccine (MCV4P) 2020-06-02 00:00:00 Completed [facility] MMR 2020-06-02 00:00:00 Completed [facility] IPV 2020-06-02 00:00:00 Completed [facility] TDAP 2020-06-02 00:00:00 Completed [facility] Varicella (varivax)(chicken pox) 2020-06-02 00:00:00 Completed [facility] HPV9 2020-06-01 00:00:00 Completed [facility] Influenza Virus Vaccine Quad .5 mL IM 6+ MO (FLUZONE/FLULAVAL/FLU ARIX) 2020-06-01 00:00:00 Completed [facility] DTaP, Unspecified Formulation 2020-06-01 00:00:00 Completed [facility] HEPATITIS A 2020-06-01 00:00:00 Completed [facility] Hep B, Adol or Pedi Dosage 2020-06-01 00:00:00 Completed [facility] Hib-HbOC 2020-06-01 00:00:00 Completed [facility] HPV 2020-06-01 00:00:00 Completed [facility] Meningococcal Polysaccharide (groups A, C, Y and W-135) conjugate vaccine (MCV4P) 2020-06-01 00:00:00 Completed [facility] MMR 2020-06-01 00:00:00 Completed [facility] IPV 2020-06-01 00:00:00 Completed [facility] TDAP 2020-06-01 00:00:00 Completed [facility] Varicella (varivax)(chicken pox) 2020-06-01 00:00:00 Completed [facility] HPV9 2020-04-01 00:00:00 Completed [facility] Influenza Virus Vaccine Quad .5 mL IM 6+ MO (FLUZONE/FLULAVAL/FLU ARIX) 2020-04-01 00:00:00 Completed [facility] DTaP, Unspecified Formulation 2020-04-01 00:00:00 Completed [facility] HEPATITIS A 2020-04-01 00:00:00 Completed [facility] Hep B, Adol or Pedi Dosage 2020-04-01 00:00:00 Completed [facility] Hib-HbOC 2020-04-01 00:00:00 Completed [facility] HPV 2020-04-01 00:00:00 Completed [facility] Meningococcal Polysaccharide (groups A, C, Y and W-135) conjugate vaccine (MCV4P) 2020-04-01 00:00:00 Completed [facility] MMR 2020-04-01 00:00:00 Completed [facility] IPV 2020-04-01 00:00:00 Completed [facility] TDAP 2020-04-01 00:00:00 Completed [facility] Varicella (varivax)(chicken pox) 2020-04-01 00:00:00 Completed [facility] Influenza Virus Vaccine Quad .5 mL IM 6+ MO 2020-03-16 00:00:00 Completed [facility] Influenza Virus Vaccine Quad .5 mL IM 6+ MO 2020-03-16 00:00:00 Completed [facility] Influenza Virus Vaccine Quad .5 mL IM 6+ MO 2020-03-16 00:00:00 Completed [facility] Influenza Virus Vaccine Quad .5 mL IM 6+ MO 2020-03-16 00:00:00 Completed [facility] Influenza Virus Vaccine Quad .5 mL IM 6+ MO 2020-03-16 00:00:00 Completed [facility] Influenza Virus Vaccine Quad .5 mL IM 6+ MO 2020-03-16 00:00:00 Completed [facility] Influenza Virus Vaccine Quad .5 mL IM 6+ MO 2020-03-16 00:00:00 Completed [facility] Influenza Virus Vaccine Quad .5 mL IM 6+ MO 2020-03-16 00:00:00 Completed [facility] Influenza Virus Vaccine Quad .5 mL IM 6+ MO 2020-03-16 00:00:00 Completed [facility] Influenza Virus Vaccine Quad .5 mL IM 6+ MO 2020-03-16 00:00:00 Completed [facility] Influenza Virus Vaccine Quad .5 mL IM 6+ MO (FLUZONE/FLULAVAL/FLU ARIX) 2020-03-16 00:00:00 Completed [facility] Influenza Virus Vaccine Quad .5 mL IM 6+ MO (FLUZONE/FLULAVAL/FLU ARIX) 2020-03-16 00:00:00 Completed [facility] Influenza Virus Vaccine Quad .5 mL IM 6+ MO (FLUZONE/FLULAVAL/FLU ARIX) 2020-03-16 00:00:00 Completed [facility] Influenza Virus Vaccine Quad .5 mL IM 6+ MO (FLUZONE/FLULAVAL/FLU ARIX) 2020-03-16 00:00:00 Completed [facility] Influenza Virus Vaccine Quad .5 mL IM 6+ MO (FLUZONE/FLULAVAL/FLU ARIX) 2020-03-16 00:00:00 Completed [facility] Influenza Virus Vaccine Quad .5 mL IM 6+ MO (FLUZONE/FLULAVAL/FLU ARIX) 2020-03-16 00:00:00 Completed [facility] Influenza Virus Vaccine Quad .5 mL IM 6+ MO (FLUZONE/FLULAVAL/FLU ARIX) 2020-03-16 00:00:00 Completed [facility] Influenza Virus Vaccine Quad .5 mL IM 6+ MO 2020-03-16 00:00:00 Completed [facility] Influenza Virus Vaccine Quad .5 mL IM 6+ MO 2020-03-16 00:00:00 Completed [facility] Influenza Virus Vaccine Quad .5 mL IM 6+ MO 2020-03-16 00:00:00 Completed [facility] Influenza Virus Vaccine Quad .5 mL IM 6+ MO 2020-03-16 00:00:00 Completed [facility] Influenza Virus Vaccine Quad .5 mL IM 6+ MO 2020-03-16 00:00:00 Completed [facility] Influenza Virus Vaccine Quad .5 mL IM 6+ MO 2020-03-16 00:00:00 Completed [facility] Influenza Virus Vaccine Quad .5 mL IM 6+ MO 2020-03-16 00:00:00 Completed [facility] Influenza Virus Vaccine Quad .5 mL IM 6+ MO 2020-03-16 00:00:00 Completed [facility] Influenza Virus Vaccine Quad .5 mL IM 6+ MO 2020-03-16 00:00:00 Completed [facility] Influenza Virus Vaccine Quad .5 mL IM 6+ MO 2020-03-16 00:00:00 Completed [facility] Influenza Virus Vaccine Quad .5 mL IM 6+ MO 2020-03-16 00:00:00 Completed [facility] Influenza Virus Vaccine Quad .5 mL IM 6+ MO 2020-03-16 00:00:00 Completed [facility] Influenza Virus Vaccine Quad .5 mL IM 6+ MO 2020-03-16 00:00:00 Completed [facility] Influenza Virus Vaccine Quad .5 mL IM 6+ MO 2020-03-16 00:00:00 Completed [facility] Influenza Virus Vaccine Quad .5 mL IM 6+ MO 2020-03-16 00:00:00 Completed [facility] Influenza Virus Vaccine Quad .5 mL IM 6+ MO 2020-03-16 00:00:00 Completed [facility] Influenza Virus Vaccine Quad .5 mL IM 6+ MO 2020-03-16 00:00:00 Completed [facility] Influenza Virus Vaccine Quad .5 mL IM 6+ MO 2020-03-16 00:00:00 Completed [facility] Influenza Virus Vaccine Quad .5 mL IM 6+ MO 2020-03-16 00:00:00 Completed [facility] Influenza Virus Vaccine Quad .5 mL IM 6+ MO 2020-03-16 00:00:00 Completed [facility] Influenza Virus Vaccine Quad .5 mL IM 6+ MO 2020-03-16 00:00:00 Completed [facility] Influenza Virus Vaccine Quad .5 mL IM 6+ MO 2020-03-16 00:00:00 Completed [facility] Influenza Virus Vaccine Quad .5 mL IM 6+ MO 2020-03-16 00:00:00 Completed [facility] Influenza Virus Vaccine Quad .5 mL IM 6+ MO 2020-03-16 00:00:00 Completed [facility] Influenza Virus Vaccine Quad .5 mL IM 6+ MO 2020-03-16 00:00:00 Completed [facility] Influenza Virus Vaccine Quad .5 mL IM 6+ MO 2020-03-16 00:00:00 Completed [facility] Influenza Virus Vaccine Quad .5 mL IM 6+ MO 2020-03-16 00:00:00 Completed [facility] HPV9 2018-09-07 00:00:00 Completed [facility] HPV9 2018-09-07 00:00:00 Completed [facility] HPV9 2018-09-07 00:00:00 Completed [facility] HPV9 2018-09-07 00:00:[address] [facility] HPV9 2018-09-07 00:00:[address] [facility] HPV9 2018-09-07 00:00:00 Completed [facility] HPV9 2018-09-07 00:00:00 Completed [facility] HPV9 2018-09-07 00:00:[address] [facility] HPV9 2018-09-07 00:00:00 Completed [facility] HPV9 2018-09-07 00:00:[address] [facility] HPV9 2018-09-07 00:00:[address] [facility] HPV9 2018-09-07 00:00:[address] [facility] HPV9 2018-09-07 00:00:[address] [facility] HPV9 2018-09-07 00:00:[address] [facility] HPV9 2018-09-07 00:00:[address] [facility] HPV9 2018-09-07 00:00:00 Completed [facility] HPV9 2018-09-07 00:00:00 Completed [facility] HPV9 2018-09-07 00:00:[address] [facility] HPV9 2018-09-07 00:00:[address] [facility] HPV9 2018-09-07 00:00:00 Completed [facility] HPV9 2018-09-07 00:00:00 Completed [facility] HPV9 2018-09-07 00:00:00 Completed [facility] HPV9 2018-09-07 00:00:00 Completed [facility] HPV9 2018-09-07 00:00:00 Completed [facility] HPV9 2018-09-07 00:00:00 Completed [facility] HPV9 2018-09-07 00:00:00 Completed [facility] HPV9 2018-09-07 00:00:00 Completed [facility] HPV9 2018-09-07 00:00:00 Completed [facility] HPV9 2018-09-07 00:00:00 Completed [facility] HPV9 2018-09-07 00:00:00 Completed [facility] HPV9 2018-09-07 00:00:00 Completed [facility] HPV9 2018-09-07 00:00:[address] [facility] HPV9 2018-09-07 00:00:[address] [facility] HPV9 2018-09-07 00:00:[address] [facility] HPV9 2018-09-07 00:00:[address] [facility] HPV9 2018-09-07 00:00:[address] [facility] HPV9 2018-09-07 00:00:00 Completed [facility] HPV9 2018-09-07 00:00:[address] [facility] HPV9 2018-09-07 00:00:[address] [facility] HPV9 2018-09-07 00:00:[address] [facility] HPV9 2018-09-07 00:00:[address] [facility] HPV9 2018-09-07 00:00:[address] [facility] HPV9 2018-09-07 00:00:[address] [facility] HPV9 2018-09-07 00:00:[address] [facility] HPV9 2018-07-03 00:00:[address] [facility] HPV9 2018-07-03 00:00:00 Completed [facility] HPV9 2018-07-03 00:00:00 Completed [facility] HPV9 2018-07-03 00:00:00 Completed [facility] HPV9 2018-07-03 00:00:00 Completed [facility] HPV9 2018-07-03 00:00:00 Completed [facility] HPV9 2018-07-03 00:00:00 Completed [facility] HPV9 2018-07-03 00:00:00 Completed [facility] HPV9 2018-07-03 00:00:00 Completed [facility] HPV9 2018-07-03 00:00:00 Completed [facility] HPV9 2018-07-03 00:00:00 Completed [facility] HPV9 2018-07-03 00:00:00 Completed [facility] HPV9 2018-07-03 00:00:00 Completed [facility] HPV9 2018-07-03 00:00:00 Completed [facility] HPV9 2018-07-03 00:00:[address] [facility] HPV9 2018-07-03 00:00:[address] [facility] HPV9 2018-07-03 00:00:[address] [facility] HPV9 2018-07-03 00:00:[address] [facility] HPV9 2018-07-03 00:00:00 Completed [facility] HPV9 2018-07-03 00:00:00 Completed [facility] HPV9 2018-07-03 00:00:[address] [facility] HPV9 2018-07-03 00:00:[address] [facility] HPV9 2018-07-03 00:00:00 Completed [facility] HPV9 2018-07-03 00:00:00 Completed [facility] HPV9 2018-07-03 00:00:00 Completed [facility] HPV9 2018-07-03 00:00:00 Completed [facility] HPV9 2018-07-03 00:00:00 Completed [facility] HPV9 2018-07-03 00:00:00 Completed [facility] HPV9 2018-07-03 00:00:[address] [facility] HPV9 2018-07-03 00:00:00 Completed [facility] HPV9 2018-07-03 00:00:[address] [facility] HPV9 2018-07-03 00:00:00 Completed [facility] HPV9 2018-07-03 00:00:[address] [facility] HPV9 2018-07-03 00:00:00 Completed [facility] HPV9 2018-07-03 00:00:00 Completed [facility] HPV9 2018-07-03 00:00:[address] [facility] HPV9 2018-07-03 00:00:[address] [facility] HPV9 2018-07-03 00:00:00 Completed [facility] HPV9 2018-07-03 00:00:00 Completed [facility] HPV9 2018-07-03 00:00:[address] [facility] HPV9 2018-07-03 00:00:[address] [facility] HPV9 2018-07-03 00:00:[address] [facility] HPV9 2018-07-03 00:00:00 Completed [facility] HPV9 2018-07-03 00:00:00 Completed [facility] Influenza Virus Vaccine Quad .5 mL IM 6+ MO 2017-01-01 00:00:00 Completed [facility] Influenza Virus Vaccine Quad .5 mL IM 6+ MO 2017-01-01 00:00:00 Completed [facility] Influenza Virus Vaccine Quad .5 mL IM 6+ MO 2017-01-01 00:00:00 Completed [facility] Influenza Virus Vaccine Quad .5 mL IM 6+ MO 2017-01-01 00:00:00 Completed [facility] Influenza Virus Vaccine Quad .5 mL IM 6+ MO 2017-01-01 00:00:00 Completed [facility] Influenza Virus Vaccine Quad .5 mL IM 6+ MO (FLUZONE/FLULAVAL/FLU ARIX) 2017-01-01 00:00:00 Completed [facility] Influenza Virus Vaccine Quad .5 mL IM 6+ MO (FLUZONE/FLULAVAL/FLU ARIX) 2017-01-01 00:00:00 Completed [facility] Influenza Virus Vaccine Quad .5 mL IM 6+ MO (FLUZONE/FLULAVAL/FLU ARIX) 2017-01-01 00:00:00 Completed [facility] Influenza Virus Vaccine Quad .5 mL IM 6+ MO (FLUZONE/FLULAVAL/FLU ARIX) 2017-01-01 00:00:00 Completed [facility] Influenza Virus Vaccine Quad .5 mL IM 6+ MO (FLUZONE/FLULAVAL/FLU ARIX) 2017-01-01 00:00:00 Completed [facility] Influenza Virus Vaccine Quad .5 mL IM 6+ MO (FLUZONE/FLULAVAL/FLU ARIX) 2017-01-01 00:00:00 Completed [facility] Influenza Virus Vaccine Quad .5 mL IM 6+ MO (FLUZONE/FLULAVAL/FLU ARIX) 2017-01-01 00:00:00 Completed HEPATITIS A 2011-11-30 00:00:00 Completed [facility] HPV 2011-11-30 00:00:00 Completed [facility] Meningococcal Polysaccharide (groups A, C, Y and W-135) conjugate vaccine (MCV4P) 2011-11-30 00:00:00 Completed [facility] TDAP 2011-11-30 00:00:00 Completed [facility] Varicella (varivax)(chicken pox) 2011-11-30 00:00:00 Completed [facility] HEPATITIS A 2011-11-30 00:00:00 Completed [facility] HPV 2011-11-30 00:00:00 Completed [facility] Meningococcal Polysaccharide (groups A, C, Y and W-135) conjugate vaccine (MCV4P) 2011-11-30 00:00:00 Completed [facility] TDAP 2011-11-30 00:00:00 Completed [facility] Varicella (varivax)(chicken pox) 2011-11-30 00:00:00 Completed [facility] HEPATITIS A 2011-11-30 00:00:00 Completed [facility] HPV 2011-11-30 00:00:00 Completed [facility] Meningococcal Polysaccharide (groups A, C, Y and W-135) conjugate vaccine (MCV4P) 2011-11-30 00:00:00 Completed [facility] TDAP 2011-11-30 00:00:00 Completed [facility] Varicella (varivax)(chicken pox) 2011-11-30 00:00:00 Completed [facility] HEPATITIS A 2011-11-30 00:00:00 Completed [facility] HPV 2011-11-30 00:00:00 Completed [facility] Meningococcal Polysaccharide (groups A, C, Y and W-135) conjugate vaccine (MCV4P) 2011-11-30 00:00:00 Completed [facility] TDAP 2011-11-30 00:00:00 Completed [facility] Varicella (varivax)(chicken pox) 2011-11-30 00:00:00 Completed [facility] HEPATITIS A 2011-11-30 00:00:00 Completed [facility] HPV 2011-11-30 00:00:00 Completed [facility] Meningococcal Polysaccharide (groups A, C, Y and W-135) conjugate vaccine (MCV4P) 2011-11-30 00:00:00 Completed [facility] TDAP 2011-11-30 00:00:00 Completed [facility] Varicella (varivax)(chicken pox) 2011-11-30 00:00:00 Completed [facility] HEPATITIS A 2011-11-30 00:00:00 Completed [facility] HPV 2011-11-30 00:00:00 Completed [facility] Meningococcal Polysaccharide (groups A, C, Y and W-135) conjugate vaccine (MCV4P) 2011-11-30 00:00:00 Completed [facility] TDAP 2011-11-30 00:00:00 Completed [facility] Varicella (varivax)(chicken pox) 2011-11-30 00:00:00 Completed [facility] HEPATITIS A 2011-11-30 00:00:00 Completed [facility] HPV 2011-11-30 00:00:00 Completed [facility] Meningococcal Polysaccharide (groups A, C, Y and W-135) conjugate vaccine (MCV4P) 2011-11-30 00:00:00 Completed [facility] TDAP 2011-11-30 00:00:00 Completed [facility] Varicella (varivax)(chicken pox) 2011-11-30 00:00:00 Completed [facility] HEPATITIS A 2011-11-30 00:00:00 Completed [facility] HPV 2011-11-30 00:00:00 Completed [facility] Meningococcal Polysaccharide (groups A, C, Y and W-135) conjugate vaccine (MCV4P) 2011-11-30 00:00:00 Completed [facility] TDAP 2011-11-30 00:00:00 Completed [facility] Varicella (varivax)(chicken pox) 2011-11-30 00:00:00 Completed [facility] HEPATITIS A 2011-11-30 00:00:00 Completed [facility] HPV 2011-11-30 00:00:00 Completed [facility] Meningococcal Polysaccharide (groups A, C, Y and W-135) conjugate vaccine (MCV4P) 2011-11-30 00:00:00 Completed [facility] TDAP 2011-11-30 00:00:00 Completed [facility] Varicella (varivax)(chicken pox) 2011-11-30 00:00:00 Completed [facility] HEPATITIS A 2011-11-30 00:00:00 Completed [facility] HPV 2011-11-30 00:00:00 Completed [facility] Meningococcal Polysaccharide (groups A, C, Y and W-135) conjugate vaccine (MCV4P) 2011-11-30 00:00:00 Completed [facility] TDAP 2011-11-30 00:00:00 Completed [facility] Varicella (varivax)(chicken pox) 2011-11-30 00:00:00 Completed [facility] HEPATITIS A 2011-11-30 00:00:00 Completed [facility] HPV 2011-11-30 00:00:00 Completed [facility] Meningococcal Polysaccharide (groups A, C, Y and W-135) conjugate vaccine (MCV4P) 2011-11-30 00:00:00 Completed [facility] TDAP 2011-11-30 00:00:00 Completed [facility] Varicella (varivax)(chicken pox) 2011-11-30 00:00:00 Completed [facility] HEPATITIS A 2011-11-30 00:00:00 Completed HPV 2011-11-30 00:00:00 Completed Meningococcal Polysaccharide (groups A, C, Y and W-135) conjugate vaccine (MCV4P) 2011-11-30 00:00:00 Completed TDAP 2011-11-30 00:00:00 Completed Varicella (varivax)(chicken pox) 2011-11-30 00:00:00 Completed DTaP, Unspecified Formulation 2003-03-18 00:00:00 Completed [facility] MMR 2003-03-18 00:00:00 Completed [facility] IPV 2003-03-18 00:00:00 Completed [facility] DTaP, Unspecified Formulation 2003-03-18 00:00:00 Completed [facility] MMR 2003-03-18 00:00:00 Completed [facility] IPV 2003-03-18 00:00:00 Completed [facility] DTaP, Unspecified Formulation 2003-03-18 00:00:00 Completed [facility] MMR 2003-03-18 00:00:00 Completed [facility] IPV 2003-03-18 00:00:00 Completed [facility] DTaP, Unspecified Formulation 2003-03-18 00:00:00 Completed [facility] MMR 2003-03-18 00:00:00 Completed [facility] IPV 2003-03-18 00:00:00 Completed [facility] DTaP, Unspecified Formulation 2003-03-18 00:00:[address] [facility] MMR 2003-03-18 00:00:[address] [facility] IPV 2003-03-18 00:00:00 Completed [facility] DTaP, Unspecified Formulation 2003-03-18 00:00:00 Completed [facility] MMR 2003-03-18 00:00:00 Completed [facility] IPV 2003-03-18 00:00:00 Completed [facility] DTaP, Unspecified Formulation 2003-03-18 00:00:00 Completed [facility] MMR 2003-03-18 00:00:00 Completed [facility] IPV 2003-03-18 00:00:00 Completed [facility] DTaP, Unspecified Formulation 2003-03-18 00:00:00 Completed [facility] MMR 2003-03-18 00:00:00 Completed [facility] IPV 2003-03-18 00:00:00 Completed [facility] DTaP, Unspecified Formulation 2003-03-18 00:00:00 Completed [facility] MMR 2003-03-18 00:00:00 Completed [facility] IPV 2003-03-18 00:00:00 Completed [facility] DTaP, Unspecified Formulation 2003-03-18 00:00:00 Completed [facility] MMR 2003-03-18 00:00:00 Completed [facility] IPV 2003-03-18 00:00:00 Completed [facility] DTaP, Unspecified Formulation 2003-03-18 00:00:00 Completed [facility] MMR 2003-03-18 00:00:00 Completed [facility] IPV 2003-03-18 00:00:00 Completed [facility] DTaP, Unspecified Formulation 2003-03-18 00:00:00 Completed MMR 2003-03-18 00:00:00 Completed IPV 2003-03-18 00:00:00 Completed DTaP, Unspecified Formulation 2001-01-01 00:00:00 Completed [facility] DTaP, Unspecified Formulation 2001-01-01 00:00:00 Completed [facility] DTaP, Unspecified Formulation 2001-01-01 00:00:00 Completed [facility] DTaP, Unspecified Formulation 2001-01-01 00:00:00 Completed [facility] DTaP, Unspecified Formulation 2001-01-01 00:00:00 Completed [facility] DTaP, Unspecified Formulation 2001-01-01 00:00:00 Completed [facility] DTaP, Unspecified Formulation 2001-01-01 00:00:00 Completed [facility] DTaP, Unspecified Formulation 2001-01-01 00:00:00 Completed [facility] DTaP, Unspecified Formulation 2001-01-01 00:00:00 Completed [facility] DTaP, Unspecified Formulation 2001-01-01 00:00:00 Completed [facility] DTaP, Unspecified Formulation 2001-01-01 00:00:00 Completed [facility] DTaP, Unspecified Formulation 2001-01-01 00:00:00 Completed Hib-HbOC 2000-05-18 00:00:00 Completed [facility] MMR 2000-05-18 00:00:00 Completed [facility] Hib-HbOC 2000-05-18 00:00:00 Completed [facility] MMR 2000-05-18 00:00:00 Completed [facility] Hib-HbOC 2000-05-18 00:00:00 Completed [facility] MMR 2000-05-18 00:00:00 Completed [facility] Hib-HbOC 2000-05-18 00:00:00 Completed [facility] MMR 2000-05-18 00:00:00 Completed [facility] Hib-HbOC 2000-05-18 00:00:00 Completed [facility] MMR 2000-05-18 00:00:00 Completed [facility] Hib-HbOC 2000-05-18 00:00:00 Completed [facility] MMR 2000-05-18 00:00:00 Completed [facility] Hib-HbOC 2000-05-18 00:00:00 Completed [facility] MMR 2000-05-18 00:00:00 Completed [facility] Hib-HbOC 2000-05-18 00:00:00 Completed [facility] MMR 2000-05-18 00:00:00 Completed [facility] Hib-HbOC 2000-05-18 00:00:00 Completed [facility] MMR 2000-05-18 00:00:00 Completed [facility] Hib-HbOC 2000-05-18 00:00:00 Completed [facility] MMR 2000-05-18 00:00:00 Completed [facility] Hib-HbOC 2000-05-18 00:00:00 Completed [facility] MMR 2000-05-18 00:00:00 Completed [facility] Hib-HbOC 2000-05-18 00:00:00 Completed MMR 2000-05-18 00:00:00 Completed Hep B, Adol or Pedi Dosage 1999-12-22 00:00:00 Completed [facility] IPV 1999-12-22 00:00:00 Completed [facility] Varicella (varivax)(chicken pox) 1999-12-22 00:00:00 Completed [facility] Hep B, Adol or Pedi Dosage 1999-12-22 00:00:00 Completed [facility] IPV 1999-12-22 00:00:00 Completed [facility] Varicella (varivax)(chicken pox) 1999-12-22 00:00:00 Completed [facility] Hep B, Adol or Pedi Dosage 1999-12-22 00:00:00 Completed [facility] IPV 1999-12-22 00:00:00 Completed [facility] Varicella (varivax)(chicken pox) 1999-12-22 00:00:00 Completed [facility] Hep B, Adol or Pedi Dosage 1999-12-22 00:00:00 Completed [facility] IPV 1999-12-22 00:00:00 Completed [facility] Varicella (varivax)(chicken pox) 1999-12-22 00:00:00 Completed [facility] Hep B, Adol or Pedi Dosage 1999-12-22 00:00:00 Completed [facility] IPV 1999-12-22 00:00:00 Completed [facility] Varicella (varivax)(chicken pox) 1999-12-22 00:00:00 Completed [facility] Hep B, Adol or Pedi Dosage 1999-12-22 00:00:00 Completed [facility] IPV 1999-12-22 00:00:00 Completed [facility] Varicella (varivax)(chicken pox) 1999-12-22 00:00:00 Completed [facility] Hep B, Adol or Pedi Dosage 1999-12-22 00:00:00 Completed [facility] IPV 1999-12-22 00:00:00 Completed [facility] Varicella (varivax)(chicken pox) 1999-12-22 00:00:00 Completed [facility] Hep B, Adol or Pedi Dosage 1999-12-22 00:00:00 Completed [facility] IPV 1999-12-22 00:00:00 Completed [facility] Varicella (varivax)(chicken pox) 1999-12-22 00:00:00 Completed [facility] Hep B, Adol or Pedi Dosage 1999-12-22 00:00:00 Completed [facility] IPV 1999-12-22 00:00:00 Completed [facility] Varicella (varivax)(chicken pox) 1999-12-22 00:00:00 Completed [facility] Hep B, Adol or Pedi Dosage 1999-12-22 00:00:00 Completed [facility] IPV 1999-12-22 00:00:00 Completed [facility] Varicella (varivax)(chicken pox) 1999-12-22 00:00:00 Completed [facility] Hep B, Adol or Pedi Dosage 1999-12-22 00:00:00 Completed [facility] IPV 1999-12-22 00:00:00 Completed [facility] Varicella (varivax)(chicken pox) 1999-12-22 00:00:00 Completed [facility] Hep B, Adol or Pedi Dosage 1999-12-22 00:00:00 Completed IPV 1999-12-22 00:00:00 Completed Varicella (varivax)(chicken pox) 1999-12-22 00:00:00 Completed Hep B, Adol or Pedi Dosage 1999-09-21 00:00:00 Completed [facility] Hep B, Adol or Pedi Dosage 1999-09-21 00:00:00 Completed [facility] Hep B, Adol or Pedi Dosage 1999-09-21 00:00:00 Completed [facility] Hep B, Adol or Pedi Dosage 1999-09-21 00:00:00 Completed [facility] Hep B, Adol or Pedi Dosage 1999-09-21 00:00:00 Completed [facility] Hep B, Adol or Pedi Dosage 1999-09-21 00:00:00 Completed [facility] Hep B, Adol or Pedi Dosage 1999-09-21 00:00:00 Completed [facility] Hep B, Adol or Pedi Dosage 1999-09-21 00:00:00 Completed [facility] Hep B, Adol or Pedi Dosage 1999-09-21 00:00:00 Completed [facility] Hep B, Adol or Pedi Dosage 1999-09-21 00:00:00 Completed [facility] Hep B, Adol or Pedi Dosage 1999-09-21 00:00:00 Completed [facility] Hep B, Adol or Pedi Dosage 1999-09-21 00:00:00 Completed DTaP, Unspecified Formulation 1999-06-24 00:00:00 Completed [facility] Hep B, Adol or Pedi Dosage 1999-06-24 00:00:00 Completed [facility] Hib-HbOC 1999-06-24 00:00:00 Completed [facility] DTaP, Unspecified Formulation 1999-06-24 00:00:00 Completed [facility] Hep B, Adol or Pedi Dosage 1999-06-24 00:00:00 Completed [facility] Hib-HbOC 1999-06-24 00:00:00 Completed [facility] DTaP, Unspecified Formulation 1999-06-24 00:00:00 Completed [facility] Hep B, Adol or Pedi Dosage 1999-06-24 00:00:00 Completed [facility] Hib-HbOC 1999-06-24 00:00:00 Completed [facility] DTaP, Unspecified Formulation 1999-06-24 00:00:00 Completed [facility] Hep B, Adol or Pedi Dosage 1999-06-24 00:00:00 Completed [facility] Hib-HbOC 1999-06-24 00:00:00 Completed [facility] DTaP, Unspecified Formulation 1999-06-24 00:00:00 Completed [facility] Hep B, Adol or Pedi Dosage 1999-06-24 00:00:00 Completed [facility] Hib-HbOC 1999-06-24 00:00:00 Completed [facility] DTaP, Unspecified Formulation 1999-06-24 00:00:00 Completed [facility] Hep B, Adol or Pedi Dosage 1999-06-24 00:00:00 Completed [facility] Hib-HbOC 1999-06-24 00:00:00 Completed [facility] DTaP, Unspecified Formulation 1999-06-24 00:00:00 Completed [facility] Hep B, Adol or Pedi Dosage 1999-06-24 00:00:00 Completed [facility] Hib-HbOC 1999-06-24 00:00:00 Completed [facility] DTaP, Unspecified Formulation 1999-06-24 00:00:00 Completed [facility] Hep B, Adol or Pedi Dosage 1999-06-24 00:00:00 Completed [facility] Hib-HbOC 1999-06-24 00:00:00 Completed [facility] DTaP, Unspecified Formulation 1999-06-24 00:00:00 Completed [facility] Hep B, Adol or Pedi Dosage 1999-06-24 00:00:00 Completed [facility] Hib-HbOC 1999-06-24 00:00:00 Completed [facility] DTaP, Unspecified Formulation 1999-06-24 00:00:00 Completed [facility] Hep B, Adol or Pedi Dosage 1999-06-24 00:00:00 Completed [facility] Hib-HbOC 1999-06-24 00:00:00 Completed [facility] DTaP, Unspecified Formulation 1999-06-24 00:00:00 Completed [facility] Hep B, Adol or Pedi Dosage 1999-06-24 00:00:00 Completed [facility] Hib-HbOC 1999-06-24 00:00:00 Completed [facility] DTaP, Unspecified Formulation 1999-06-24 00:00:00 Completed Hep B, Adol or Pedi Dosage 1999-06-24 00:00:00 Completed Hib-HbOC 1999-06-24 00:00:00 Completed DTaP, Unspecified Formulation 1999-04-26 00:00:00 Completed [facility] Hib-HbOC 1999-04-26 00:00:00 Completed [facility] IPV 1999-04-26 00:00:00 Completed [facility] DTaP, Unspecified Formulation 1999-04-26 00:00:00 Completed [facility] Hib-HbOC 1999-04-26 00:00:00 Completed [facility] IPV 1999-04-26 00:00:00 Completed [facility] DTaP, Unspecified Formulation 1999-04-26 00:00:00 Completed [facility] Hib-HbOC 1999-04-26 00:00:00 Completed [facility] IPV 1999-04-26 00:00:00 Completed [facility] DTaP, Unspecified Formulation 1999-04-26 00:00:00 Completed [facility] Hib-HbOC 1999-04-26 00:00:00 Completed [facility] IPV 1999-04-26 00:00:00 Completed [facility] DTaP, Unspecified Formulation 1999-04-26 00:00:00 Completed [facility] Hib-HbOC 1999-04-26 00:00:00 Completed [facility] IPV 1999-04-26 00:00:00 Completed [facility] DTaP, Unspecified Formulation 1999-04-26 00:00:00 Completed [facility] Hib-HbOC 1999-04-26 00:00:00 Completed [facility] IPV 1999-04-26 00:00:00 Completed [facility] DTaP, Unspecified Formulation 1999-04-26 00:00:00 Completed [facility] Hib-HbOC 1999-04-26 00:00:00 Completed [facility] IPV 1999-04-26 00:00:00 Completed [facility] DTaP, Unspecified Formulation 1999-04-26 00:00:00 Completed [facility] Hib-HbOC 1999-04-26 00:00:00 Completed [facility] IPV 1999-04-26 00:00:00 Completed [facility] DTaP, Unspecified Formulation 1999-04-26 00:00:00 Completed [facility] Hib-HbOC 1999-04-26 00:00:00 Completed [facility] IPV 1999-04-26 00:00:00 Completed [facility] DTaP, Unspecified Formulation 1999-04-26 00:00:00 Completed [facility] Hib-HbOC 1999-04-26 00:00:00 Completed [facility] IPV 1999-04-26 00:00:00 Completed [facility] DTaP, Unspecified Formulation 1999-04-26 00:00:00 Completed [facility] Hib-HbOC 1999-04-26 00:00:00 Completed [facility] IPV 1999-04-26 00:00:00 Completed [facility] DTaP, Unspecified Formulation 1999-04-26 00:00:00 Completed Hib-HbOC 1999-04-26 00:00:00 Completed IPV 1999-04-26 00:00:00 Completed DTaP, Unspecified Formulation 1999-02-18 00:00:00 Completed [facility] Hib-HbOC 1999-02-18 00:00:00 Completed [facility] IPV 1999-02-18 00:00:00 Completed [facility] DTaP, Unspecified Formulation 1999-02-18 00:00:00 Completed [facility] Hib-HbOC 1999-02-18 00:00:00 Completed [facility] IPV 1999-02-18 00:00:00 Completed [facility] DTaP, Unspecified Formulation 1999-02-18 00:00:00 Completed [facility] Hib-HbOC 1999-02-18 00:00:00 Completed [facility] IPV 1999-02-18 00:00:00 Completed [facility] DTaP, Unspecified Formulation 1999-02-18 00:00:00 Completed [facility] Hib-HbOC 1999-02-18 00:00:00 Completed [facility] IPV 1999-02-18 00:00:00 Completed [facility] DTaP, Unspecified Formulation 1999-02-18 00:00:00 Completed [facility] Hib-HbOC 1999-02-18 00:00:00 Completed [facility] IPV 1999-02-18 00:00:00 Completed [facility] DTaP, Unspecified Formulation 1999-02-18 00:00:00 Completed [facility] Hib-HbOC 1999-02-18 00:00:00 Completed [facility] IPV 1999-02-18 00:00:00 Completed [facility] DTaP, Unspecified Formulation 1999-02-18 00:00:00 Completed [facility] Hib-HbOC 1999-02-18 00:00:00 Completed [facility] IPV 1999-02-18 00:00:00 Completed [facility] DTaP, Unspecified Formulation 1999-02-18 00:00:00 Completed [facility] Hib-HbOC 1999-02-18 00:00:00 Completed [facility] IPV 1999-02-18 00:00:00 Completed [facility] DTaP, Unspecified Formulation 1999-02-18 00:00:00 Completed [facility] Hib-HbOC 1999-02-18 00:00:00 Completed [facility] IPV 1999-02-18 00:00:00 Completed [facility] DTaP, Unspecified Formulation 1999-02-18 00:00:00 Completed [facility] Hib-HbOC 1999-02-18 00:00:00 Completed [facility] IPV 1999-02-18 00:00:00 Completed [facility] DTaP, Unspecified Formulation 1999-02-18 00:00:00 Completed [facility] Hib-HbOC 1999-02-18 00:00:00 Completed [facility] IPV 1999-02-18 00:00:00 Completed [facility] DTaP, Unspecified Formulation 1999-02-18 00:00:00 Completed Hib-HbOC 1999-02-18 00:00:00 Completed IPV 1999-02-18 00:00:00 Completed Vital Signs Vital Name Observation Time Observation Value Comments S ource Systolic blood pressure 2024-08-22 21:04:00 122 mm[Hg] [facility] Diastolic blood pressure 2024-08-22 21:04:00 64 mm[Hg] [facility] Heart rate 2024-08-22 18:37:00 114 /min [facility] Body temperature 2024-08-22 18:37:00 36.5 Gin [facility] Respiratory rate 2024-08-22 18:37:00 19 /min [facility] Body height 2024-08-22 18:37:[address] [facility] Body weight 2024-08-22 18:37:[address] [facility] BMI 2024-08-22 18:37:00 38.03 kg/m2 [facility] Systolic blood pressure 2023-03-08 16:42:00 142 mm[Hg] [facility] Diastolic blood pressure 2023-03-08 16:42:00 89 mm[Hg] [facility] Heart rate 2023-03-08 16:42:00 91 /min [facility] Body temperature 2023-03-08 16:41:00 36.44 Gin [facility] Respiratory rate 2023-03-08 16:41:00 20 /min [facility] Body weight 2023-03-08 16:41:[address] [facility] BMI 2023-03-08 16:41:00 37.56 kg/m2 [facility] Systolic blood pressure 2023-01-06 15:38:00 116 mm[Hg] [facility] Diastolic blood pressure 2023-01-06 15:38:00 77 mm[Hg] [facility] Heart rate 2023-01-06 15:38:00 76 /min [facility] Body temperature 2023-01-06 15:38:00 36.39 Gin [facility] Respiratory rate 2023-01-06 15:38:00 20 /min [facility] Body height 2023-01-06 15:38:[address] [facility] Body weight 2023-01-06 15:38:[address] [facility] BMI 2023-01-06 15:38:00 36.41 kg/m2 [facility] Systolic blood pressure 2022-12-17 12:40:00 124 mm[Hg] [facility] Diastolic blood pressure 2022-12-17 12:40:00 85 mm[Hg] [facility] Heart rate 2022-12-17 12:40:00 100 /min [facility] Body temperature 2022-12-17 12:40:00 36.67 Gin [facility] Respiratory rate 2022-12-17 12:40:00 18 /min [facility] Oxygen saturation in Arterial blood by Pulse oximetry 2022-12-17 12:40:00 97 /min [facility] Body height 2022-12-15 20:40:00 175.3 cm [facility] [facility] 2022-12-15 20:40:00 120.657 kg [facility] BMI 2022-12-15 20:40:00 39.28 kg/m2 [facility] Systolic blood pressure 2022-12-13 13:36:00 130 mm[Hg] [facility] Diastolic blood pressure 2022-12-13 13:36:00 90 mm[Hg] [facility] Heart rate 2022-12-13 13:36:00 116 /min [facility] Body temperature 2022-12-13 13:36:00 35.06 Gin [facility] Respiratory rate 2022-12-13 13:36:00 18 /min [facility] Body height 2022-12-13 13:36:00 175.3 cm [facility] Body weight 2022-12-13 13:36:00 120.385 kg [facility] BMI 2022-12-13 13:36:00 39.19 kg/m2 [facility] Systolic blood pressure 2022-12-07 16:07:00 125 mm[Hg] [facility] Diastolic blood pressure 2022-12-07 16:07:00 79 mm[Hg] [facility] Heart rate 2022-12-07 16:07:00 88 /min [facility] Body temperature 2022-12-07 16:07:00 35.22 Gin [facility] Respiratory rate 2022-12-07 16:07:00 18 /min [facility] Body height 2022-12-07 16:07:00 175.3 cm [facility] Body weight 2022-12-07 16:07:[address] [facility] BMI 2022-12-07 16:07:00 39.44 kg/m2 Univ [facility] Systolic blood pressure 2022-11-28 17:30:00 123 mm[Hg] [facility] Diastolic blood pressure 2022-11-28 17:30:00 74 mm[Hg] [facility] Heart rate 2022-11-28 17:30:00 70 /min [facility] Oxygen saturation in Arterial blood by Pulse oximetry 2022-11-28 17:30:00 98 /min [facility] Body temperature 2022-11-28 14:30:00 36.61 Gin [facility] Respiratory rate 2022-11-28 14:30:00 20 /min [facility] Body height 2022-11-28 14:30:00 175.3 cm [facility] Body weight 2022-11-28 14:30:00 120.657 kg [facility] BMI 2022-11-28 14:30:00 39.28 kg/m2 [facility] Systolic blood pressure 2022-11-23 16:02:00 128 mm[Hg] [facility] Diastolic blood pressure 2022-11-23 16:02:00 75 mm[Hg] [facility] Heart rate 2022-11-23 16:02:00 88 /min [facility] Body temperature 2022-11-23 16:02:00 36.06 Gin [facility] Respiratory rate 2022-11-23 16:02:00 20 /min [facility] Body height 2022-11-23 16:02:[address] [facility] Body weight 2022-11-23 16:02:[address] [facility] BMI 2022-11-23 16:02:00 39.32 kg/m2 [facility] Systolic blood pressure 2022-11-09 12:53:00 120 mm[Hg] [facility] Diastolic blood pressure 2022-11-09 12:53:00 74 mm[Hg] [facility] Heart rate 2022-11-09 12:53:00 95 /min [facility] Body temperature 2022-11-09 12:53:00 36.39 Gin [facility] Respiratory rate 2022-11-09 12:53:00 20 /min [facility] Body height 2022-11-09 12:53:00 175.3 cm [facility] Body weight 2022-11-09 12:53:00 121.745 kg [facility] BMI 2022-11-09 12:53:00 39.64 kg/m2 [facility] Systolic blood pressure 2022-10-21 15:56:00 129 mm[Hg] [facility] Diastolic blood pressure 2022-10-21 15:56:00 78 mm[Hg] [facility] Heart rate 2022-10-21 15:56:00 101 /min [facility] Body temperature 2022-10-21 15:56:00 35.5 Gin [facility] Respiratory rate 2022-10-21 15:56:00 18 /min [facility] Body height 2022-10-21 15:56:00 175.3 cm [facility] Body weight 2022-10-21 15:56:00 120.022 kg [facility] BMI 2022-10-21 15:56:00 39.07 kg/m2 [facility] Systolic blood pressure 2022-10-07 14:59:00 122 mm[Hg] [facility] Diastolic blood pressure 2022-10-07 14:59:00 70 mm[Hg] [facility] Heart rate 2022-10-07 14:59:00 103 /min [facility] Body temperature 2022-10-07 14:59:00 35.78 Gin [facility] Respiratory rate 2022-10-07 14:59:00 18 /min [facility] Body height 2022-10-07 14:59:[address] [facility] Body weight 2022-10-07 14:59:[address] [facility] BMI 2022-10-07 14:59:00 39.03 kg/m2 [facility] Systolic blood pressure 2022-09-23 16:10:00 125 mm[Hg] [facility] Diastolic blood pressure 2022-09-23 16:10:00 76 mm[Hg] [facility] Heart rate 2022-09-23 16:10:00 100 /min [facility] Body temperature 2022-09-23 16:10:00 36 Gin [facility] Respiratory rate 2022-09-23 16:10:00 18 /min [facility] Body height 2022-09-23 16:10:[address] [facility] Body weight 2022-09-23 16:10:[address] [facility] BMI 2022-09-23 16:10:00 38.96 kg/m2 [facility] Systolic blood pressure 2022-08-17 15:24:00 132 mm[Hg] [facility] Diastolic blood pressure 2022-08-17 15:24:00 73 mm[Hg] [facility] Heart rate 2022-08-17 15:24:00 90 /min [facility] Body temperature 2022-08-17 15:24:00 35.83 Gin [facility] Respiratory rate 2022-08-17 15:24:00 18 /min [facility] Body height 2022-08-17 15:24:[address] [facility] Body weight 2022-08-17 15:24:[address] [facility] BMI 2022-08-17 15:24:00 37.55 kg/m2 [facility] Systolic blood pressure 2022-07-21 14:43:00 130 mm[Hg] [facility] Diastolic blood pressure 2022-07-21 14:43:00 71 mm[Hg] [facility] Heart rate 2022-07-21 14:43:00 97 /min [facility] Body temperature 2022-07-21 14:43:00 36.89 Gin [facility] Respiratory rate 2022-07-21 14:43:00 17 /min [facility] Body height 2022-07-21 14:43:[address] [facility] Body weight 2022-07-21 14:43:[address] [facility] BMI 2022-07-21 14:43:00 37.39 kg/m2 [facility] Systolic blood pressure 2022-06-22 15:09:00 134 mm[Hg] [facility] Diastolic blood pressure 2022-06-22 15:09:00 90 mm[Hg] [facility] Heart rate 2022-06-22 15:09:00 98 /min [facility] Body temperature 2022-06-22 15:09:00 37.06 Gin [facility] Respiratory rate 2022-06-22 15:09:00 18 /min [facility] Body height 2022-06-22 15:09:[address] [facility] Body weight 2022-06-22 15:09:00 109.816 kg [facility] BMI 2022-06-22 15:09:00 35.75 kg/m2 [facility] Systolic blood pressure 2022-05-25 15:32:00 119 mm[Hg] [facility] Diastolic blood pressure 2022-05-25 15:32:00 69 mm[Hg] [facility] Heart rate 2022-05-25 15:32:00 81 /min [facility] Body temperature 2022-05-25 15:32:00 36.28 Gin [facility] Respiratory rate 2022-05-25 15:32:00 18 /min [facility] Body height 2022-05-25 15:32:00 175.3 cm [facility] Body weight 2022-05-25 15:32:[address] [facility] BMI 2022-05-25 15:32:00 36.37 kg/m2 [facility] Systolic blood pressure 2022-04-27 15:52:00 136 mm[Hg] [facility] Diastolic blood pressure 2022-04-27 15:52:00 79 mm[Hg] [facility] Heart rate 2022-04-27 15:52:00 98 /min [facility] Body temperature 2022-04-27 15:52:00 36.28 Gin [facility] Respiratory rate 2022-04-27 15:52:00 18 /min [facility] Body height 2022-04-27 15:52:[address] [facility] Body weight 2022-04-27 15:52:00 109.856 kg [facility] BMI 2022-04-27 15:52:00 35.76 kg/m2 [facility] Systolic blood pressure 2022-02-17 15:46:00 131 mm[Hg] [facility] Diastolic blood pressure 2022-02-17 15:46:00 80 mm[Hg] [facility] Heart rate 2022-02-17 15:46:00 104 /min [facility] Body temperature 2022-02-17 15:46:00 36.94 Gin [facility] Respiratory rate 2022-02-17 15:46:00 18 /min [facility] Body weight 2022-02-17 15:46:[address] [facility] BMI 2022-02-17 15:46:00 35.31 kg/m2 [facility] Systolic blood pressure 2022-02-10 21:46:00 121 mm[Hg] [facility] Diastolic blood pressure 2022-02-10 21:46:00 69 mm[Hg] [facility] Heart rate 2022-02-10 21:46:00 92 /min [facility] Body temperature 2022-02-10 21:46:00 36.11 Gin [facility] Respiratory rate 2022-02-10 21:46:00 18 /min [facility] Body height 2022-02-10 21:46:00 175.3 cm [facility] Body weight 2022-02-10 21:46:00 109.77 kg [facility] BMI 2022-02-10 21:46:00 35.74 kg/m2 [facility] Systolic blood pressure 2021-06-30 14:10:00 116 mm[Hg] [facility] Diastolic blood pressure 2021-06-30 14:10:00 66 mm[Hg] [facility] Heart rate 2021-06-30 14:10:00 96 /min [facility] Body temperature 2021-06-30 14:10:00 36.33 Gin [facility] Respiratory rate 2021-06-30 14:10:00 18 /min [facility] Body height 2021-06-30 14:10:00 175.3 cm [facility] Body weight 2021-06-30 14:10:00 112.129 kg [facility] BMI 2021-06-30 14:10:00 36.51 kg/m2 [facility] Procedures Procedure Date / Time Performed Performing Clinician Source URINE CULTURE 2024-08-22 21:21:00 Janki Cortez [facility] GC & CHLAMYDIA AMPLIFIED ASSAY 2024-08-22 21:21:00 Diego Janki [facility] GALV ONLY - VAGINAL PATHOGENS BY NUCLEIC ACID TESTING 2024-08-22 21:21:00 Janki Cortez [facility] POCT URINALYSIS W/O SPECIFIC GRAVITY 2024-08-22 00:00:00 Janki Cortez [facility] POCT TEST 2023-03-08 16:51:00 Maya Aparicio [facility] CONSENT FOR CONTRACEPTION 2023-03-08 06:01:00 Doctor Unassigned, [place] [facility] CBC WITH DIFF 2023-01-06 16:19:00 Simona Aparicio [facility] CBC WITH DIFF 2022-12-17 09:09:00 Higinio Mcneill [facility] VENOUS CORD GAS 2022-12-16 14:24:00 Derzi, Lamia [facility] CENTRAL NEURAXIAL BLOCK 2022-12-16 06:04:00 Bi De Leon [facility] CBC WITH DIFF 2022-12-15 21:29:00 Surya Slater [facility] HEPATITIS B SURFACE ANTIGEN 2022-12-15 21:29:00 Surya Slater [facility] HB ABO GROUPING 2022-12-15 21:29:00 Surya Slater [facility] RHO (D) IMMUNE GLOBULIN 2022-12-15 21:29:00 Higinio Mcneill [facility] HIV 1/2 AG-AB WITH REFLEX 2022-12-15 21:29[facility] SYPHILIS IGG/IGM 2022-12-15 21:29:00 Surya Slater [facility] HOSPITAL ADMISSION 2022-12-15 05:01:00 Doctor Un assigned, [place] [facility] POCT URINALYSIS 2022-12-13 13:39:00 Lyudmila Montoya [facility] POCT URINALYSIS 2022-12-07 16:09:00 Lyudmila Montoya [facility] URINALYSIS 2022-11-28 16:20:00 Lucille Foster [facility] ADC CLC OR LCC ONLY - WET PREP 2022-11-28 16:20:00 Lucille Foster [facility] EXTERNAL PROVIDER RECORDS 2022-11-28 05:01:00 Doctor Unassigned, [place] [facility] MEDICAL RELEASE/CLEARANCE FORMS 2022-11-28 05:01:00 Doctor Unassigned, [place] [facility] L&D VISIT (NON-DELIVERED) 2022-11-28 05:01:00 Doctor Unassigned, [place] [facility] POCT URINALYSIS 2022-11-23 16:05:00 Lyudmila Montoya [facility] POCT URINALYSIS 2022-11-09 00:00:00 Lyudmila Montoya [facility] POCT URINALYSIS 2022-10-21 15:58:00 Lyudmila Montoya [facility] TDAP VACCINE, >11 YRS, IM 2022-10-07 15:19:25 Lyudmila Montoya [facility] POCT URINALYSIS 2022-10-07 15:02:00 Lyudmila Montoya [facility] POCT URINALYSIS 2022-09-23 16:18:00 Lyudmila Montoya [facility] POCT URINALYSIS 2022-08-17 15:26:00 Lyudmila Montoya [facility] POCT URINALYSIS 2022-07-21 00:00:00 Lyudmila Montoya [facility] TRICHOMONAS AMPLIFIED ASSAY 2022-06-28 18:13:00 Lyudmila Montoya [facility] FIRST TRIMESTER ULTRASOUND 2022-06-23 14:50:00 Lyudmila Montoya [facility] POCT URINALYSIS 2022-06-22 15:09:00 Lyudmila Montoya [facility] CONSENT/REFUSAL FOR DIAGNOSIS AND TREATMENT 2022-06-22 14:48:52 Doctor Unassigned, [place] [facility] POCT URINALYSIS 2022-05-25 15:34:00 Lyudmila Montoya [facility] GC & CHLAMYDIA AMPLIFIED ASSAY 2022-05-09 20:54:00 Lyudmila Montoya [facility] TRICHOMONAS AMPLIFIED ASSAY 2022-05-09 20:54:00 Lyudmila Montoya [facility] POCT URINALYSIS W/O SPECIFIC GRAVITY 2022-04-27 15:45:00 Lyudmila Montoya [facility] POCT TEST 2022-04-27 15:44:00 Lavelle Montoya [facility] REPORT OF 2022-04-27 06:01:00 Doctor Kendall yates, [place] [facility] POCT TEST 2022-02-17 15:48:00 Laevlle Montoya [facility] POCT TEST 2022-02-10 00:00:00 Maya Aparicio [facility] BCCS-RELATED DOCUMENTATION 2022-01-19 05:01:00 Doctor Unassigned, [place] [facility] BI ULTRASOUND BREAST COMPLETE LEFT 2021-09-22 18:30:10 Lyudmila Montoya [facility] Encounters Start Date/Time End Date/Time Encounter Type Admission Type Attending [facility] Care Facility Care Department Encounter ID Source 2021-02-02 06:13:19 Emergency [facility] [id number] [facility] 2021-01-30 14:34:27 Emergency [facility] [id number] [facility] 2024-08-26 00:00:00 2024-08-26 14:03:28 Case Management Janki Cortez [facility] 1..114 350.1.13.10 4.2.7.2.686 [id number] [facility] 2024-08-22 13:30:00 2024-08-22 14:45:29 Office Visit R Janki Cortez [facility] 1..114 350.1.13.10 4.2.7.2.686 [id number] [facility] 2023-03-08 10:30:00 2023-03-08 11:42:48 Outpatient R SIMONA APARICIO [facility] [id number] [facility] 2023-03-08 10:30:00 2023-03-08 11:42:48 Office Visit Simona Aparicio [facility] 1..114 350.1.13.10 4.2.7.2.686 [id number] [facility] 2023-03-08 00:00:00 2023-03-08 00:00:00 Orders Only Doctor Unassigned, [place] [facility] 1..114 350.1.13.10 4.2.7.2.686 [id number] [facility] 2023-01-26 09:45:00 2023-01-26 09:45:00 Outpatient R SIMONA APARICIO [facility] [id number] [facility] 2023-01-26 00:00:00 2023-01-26 00:00:00 Telephone Simona Aparicio [facility] 1.0.114 350.1.13.10 4.2.7.2.686 [id number] [facility] 2023-01-06 10:00:00 2023-01-06 11:20:32 Outpatient R SIMONA APARICIO [facility] [id number] [facility] 2023-01-06 10:00:00 2023-01-06 11:20:32 Routine Visit Simona Aparicio [facility] 1.20.114 350.1.13.10 4.2.7.2.686 [id number] [facility] 2022-12-19 00:00:00 2022-12-19 00:00:00 Telephone Lyudmila Montoya [facility] 1.20.114 350.1.13.10 4.2.7.2.686 [id number] [facility] 2022-12-15 15:05:00 2022-12-17 15:20:00 Inpatient U KARRI DAY [facility] [id number] [facility] 2022-12-15 15:05:00 2022-12-17 15:20:00 Hospital Encounter Karri Day [facility] 1.2840.114 350.1.13.10 4.2.7.2.686 [id number] [facility] 2022-12-16 00:34:00 2022-12-16 11:22:00 Anesthesia Event Abimbola Zimmerman, Winifred [facility] 1.2.840.114 350.1.13.10 4.2.7.2.686 [id number] [facility] 2022-12-15 00:00:00 2022-12-15 00:00:00 Orders Only Doctor Unassigned, [place] [facility] 1.2.840.114 350.1.13.10 4.2.7.2.686 [id number] [facility] 2022-12-13 08:30:00 2022-12-13 09:06:22 Outpatient R LYUDMILA MONTOYA [facility] [id number] [facility] 2022-12-13 08:30:00 2022-12-13 09:06:22 Routine Visit Lyudmila Montoya [facility] 1.2.840.114 350.1.13.10 4.2.7.2.686 [id number] [facility] 2022-12-07 11:00:00 2022-12-07 11:15:00 Routine Visit Lyudmila Montoya [facility] 1.2.840.114 350.1.13.10 4.2.7.2.686 [id number] [facility] 2022-12-07 11:00:00 2022-12-07 11:00:00 Outpatient R LYUDMILA MONTOYA [facility] [id number] [facility] 2022-11-30 09:45:00 2022-11-30 09:45:00 Outpatient R LYUDMILA MONTOYA [facility] [id number] [facility] 2022-11-28 09:23:00 2022-11-28 13:05:00 Outpatient U JEAN-TATIANA S, LUCILLE JEAN-TATIANA S, LUCILLE [facility] [id number] [facility] 2022-11-28 09:23:00 2022-11-28 13:05:00 Hospital Encounter Matty-Tatiana s, Lucille [facility] 1.2.840.114 350.1.13.10 4.2.7.2.686 [id number] [facility] 2022-11-23 11:00:00 2022-11-23 11:42:15 Outpatient R SIMONA APARICIO [facility] [id number] [facility] 2022-11-23 11:00:00 2022-11-23 11:42:15 Routine Visit Simona Aparicio [facility] P[employer] 1..840.114 350.1.13.10 4.2.7.2.686 [id number] [facility] 2022-11-09 07:45:00 2022-11-09 08:21:13 Outpatient R LYUDMILA MONTOYA [facility] [id number] [facility] 2022-11-09 07:45:00 2022-11-09 08:21:13 Routine Visit Simona Aparicio Damilola C [facility] 1..840.114 350.1.13.10 4.2.7.2.686 [id number] [facility] 2022-11-04 15:00:00 2022-11-04 15:00:00 Outpatient R LYUDMILA MONTOYA [facility] [id number] [facility] 2022-10-21 10:45:00 2022-10-21 11:11:59 Outpatient R LYUDMILA MONTOYA [facility] [id number] [facility] 2022-10-21 10:45:00 2022-10-21 11:11:59 Routine Visit Lyudmila Montoya [facility] P[employer]ER [facility]ILD [facility] 1.2.840.114 350.1.13.10 4.2.7.2.686 [id number] [facility] 2022-10-07 10:00:00 2022-10-07 10:58:26 Outpatient R LYUDMILA MONTOYA [facility] [id number] [facility] 2022-10-07 10:00:00 2022-10-07 10:58:26 Routine Visit Lyudmila Montoya [facility] 1.2.840.114 350.1.13.10 4.2.7.2.686 [id number] [facility] 2022-10-02 00:00:00 2022-10-02 00:00:00 Patient Secure Msg Apolinartrinastephy Lyudmila Velásquez [facility] P[employer] WORKER [facility] 1.2.840.114 350.1.13.10 4.2.7.2.686 [id number] [facility] 2022-09-29 00:00:00 2022-09-29 00:00:00 Abstract Lyudmila Montoya Didier [facility] 1.2.840.114 350.1.13.10 4.2.7.2.686 [id number] [facility] 2022-09-28 14:30:00 2022-09-28 14:58:03 Manager Civil Visit 1, Angie-Mfm Room MegParvez alarcon [facility] 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 WORKER [facility] 1.2.840.114 350.1.13.10 4.2.7.2.686 [id number] [facility] 2022-09-28 14:30:00 2022-09-28 14:30:00 Outpatient P MEG, PARVEZ MEG, PARVEZ [facility] [id number] [facility] 2022-09-26 00:00:00 2022-09-26 00:00:00 Telephone Lyudmila Montoya [facility] 1.2.840.114 350.1.13.10 4.2.7.2.686 [id number] [facility] 2022-09-23 11:00:00 2022-09-23 11:54:21 Outpatient R LYUDMILA MONTOYA [facility] [id number] [facility] 2022-09-23 11:00:00 2022-09-23 11:54:21 Routine Visit Lyudmila Montoya [facility] 1..840.114 350.1.13.10 4.2.7.2.686 [id number] [facility] 2022-09-14 09:00:00 2022-09-14 09:00:00 Outpatient R LYUDMILA MONTOYA [facility] [id number] [facility] 2022-08-18 00:00:00 2022-08-18 00:00:00 Abstract Lyudmila Montoya [facility] 1..840.114 350.1.13.10 4.2.7.2.686 [id number] [facility] 2022-08-18 00:00:00 2022-08-18 00:00:00 Patient Secure Msg Lyudmila Montoya [facility] 1.2.840.114 350.1.13.10 4.2.7.2.686 [id number] [facility] 2022-08-18 00:00:00 2022-08-18 00:00:00 Abstract Lyudmila Montoya Didier [facility] PIGGERY WORKER [facility] 1.2.840.114 350.1.13.10 4.2.7.2.686 [id number] [facility] 2022-08-17 10:45:00 2022-08-17 11:29:04 Routine Visit ApolinarLyudmila june Didier [facility] PIGGERY WORKER [facility]ILD [facility] 1.2.840.114 350.1.13.10 4.2.7.2.686 [id number] [facility] 2022-08-17 09:15:00 2022-08-17 10:30:00 Manager Civil Visit Ultrasound, Madeline Bernabe [facility] PIGGERY WORKER [facility] 1.2840.114 350.1.13.10 4.2.7.2.686 [id number] [facility] 2022-08-17 09:15:00 2022-08-17 09:55:18 Outpatient P MADELINE GARCIA SANGEETA [facility] [id number] [facility] 2022-07-21 09:45:00 2022-07-21 10:31:29 Outpatient R LYUDMILA MONTOYA [facility] [id number] [facility] 2022-07-21 09:45:00 2022-07-21 10:31:29 Routine Visit Jan Lyudmila C [facility] PIGGERY WORKER [facility] 1.2.840.114 350.1.13.10 4.2.7.2.686 [id number] [facility] 2022-07-14 00:00:00 2022-07-14 00:00:00 Abstract ApolinarLyudmila june Didier [facility] PIGGERY WORKER [facility] 1.2.840.114 350.1.13.10 4.2.7.2.686 [id number] [facility] 2022-06-28 13:15:00 2022-06-28 13:15:00 Outpatient R LYUDMILA MONTOYA [facility] [id number] [facility] 2022-06-28 13:15:00 2022-06-28 13:15:00 Manager Civil Visit Lab, Lyudmila Marvin [facility] PIGGERY WORKER [facility] 1..840.114 350.1.13.10 4.2.7.2.686 [id number] 107 [id number] [facility] 2022-06-24 00:00:00 2022-06-24 00:00:00 Abstract Lyudmila Montoya [facility] PIGGERY WORKER [facility] ..840.114 350.1.13.10 4.2.7.2.686 [id number] [facility] 2022-06-23 09:15:00 2022-06-23 15:56:10 Outpatient P PARVEZ WEAVER [facility] [id number] [facility] 2022-06-23 09:15:00 2022-06-23 15:56:10 Manager Civil Visit 1, Alexvicki [facility] Parvez [facility] PIGGERY WORKER [facility] ..840.114 350.1.13.10 4.2.7.2.686 [id number] [facility] 2022-06-23 10:00:00 2022-06-23 10:12:39 Manager Civil Visit Lab, Tonya Gallo [facility] PIGGERY WORKER [facility] 1..840.114 350.1.13.10 4.2.7.2.686 [id number] [facility] 2022-06-23 00:00:00 2022-06-23 00:00:00 Telephone ColtstephyLyudmila Didier [facility] PIGGERY WORKER [facility] & CHILD [facility] 1.0.114 350.1.13.10 4.2.7.2.686 [id number] 107 [id number] [facility] 2022-06-22 09:45:00 2022-06-22 10:36:01 Outpatient R LYUDMILA MONTOYA [facility] [id number] [facility] 2022-06-22 09:45:00 2022-06-22 10:36:01 Routine Visit Jan Lyudmila Didier [facility] PIGGERY WORKER [facility] 1.840.114 350.1.13.10 4.2.7.2.686 [id number] 107 [id number] [facility] 2022-06-22 00:00:00 2022-06-22 00:00:00 Orders Only Doctor Unassigned, [place] [facility] 1.840.114 350.1.13.10 4.2.7.2.686 [id number] [facility] 2022-05-25 09:45:00 2022-05-25 09:59:33 Outpatient R COLTSTEPHY LYUDMILA [facility] [id number] [facility] 2022-05-25 09:45:00 2022-05-25 09:59:33 Routine Visit Lyudmila Montoya [facility] PIGGERY WORKER [facility] 1.0.114 350.1.13.10 4.2.7.2.686 [id number] [facility] 2022-05-10 00:00:00 2022-05-10 00:00:00 Telephone JanLyudmila Didier [facility] PIGGERY WORKER [facility] 1.840.114 350.1.13.10 4.2.7.2.686 [id number] 107 [id number] [facility] 2022-05-09 13:15:00 2022-05-09 13:23:32 Outpatient R LYUDMILA MONTOYA [facility] [id number] [facility] 2022-05-09 13:15:00 2022-05-09 13:23:32 Manager Civil Visit Lab, Ang-Rmchp Lyudmila Montoya MEFELICE PIGGERY WORKER [facility] 1..840.114 350.1.13.10 4.2.7.2.686 [id number] [facility] 2022-05-05 12:45:00 2022-05-05 12:45:00 Outpatient R LYUDMILA MONTOYA [facility] [id number] [facility] 2022-05-04 00:00:00 2022-05-04 00:00:00 Telephone Lyudmila Montoya MEFELICE PIGGERY WORKER [facility] 1..840.114 350.1.13.10 4.2.7.2.686 [id number] [facility] 2022-05-02 00:00:00 2022-05-02 00:00:00 Telephone Lyudmila Montoya [facility]..840.114 350.1.13.10 4.2.7.2.686 [id number] [facility] 2022-04-29 13:00:00 2022-04-29 13:00:00 Outpatient R LYUDMILA MONTOYA [facility] [id number] [facility] 2022-04-27 10:00:00 2022-04-27 10:53:17 Outpatient R LYUDMILA MONTOYA [facility] [id number] [facility] 2022-04-27 10:00:00 2022-04-27 10:53:17 Initial Visit Lyudmila Montoya MEFELICE PIGGERY WORKER [facility] 1..114 350.1.13.10 4.2.7.2.686 [id number] [facility] 2022-04-27 00:00:00 2022-04-27 00:00:00 Telephone Lyudmila Montoya [facility] PIGGERY WORKER [facility] 1..114 350.1.13.10 4.2.7.2.686 [id number] 107 [id number] [facility] 2022-04-27 00:00:00 2022-04-27 00:00:00 Orders Only Doctor Unassigned, [place] [facility] 1..114 350.1.13.10 4.2.7.2.686 [id number] [facility] 2022-03-04 09:15:00 2022-03-04 09:15:00 Outpatient SIMONA KATE [facility] [id number] [facility] 2022-03-04 00:00:00 2022-03-04 00:00:00 Telephone Lyudmila Montoya [facility]..114 350.1.13.10 4.2.7.2.686 [id number] 107 [id number] [facility] 2022-02-17 10:00:00 2022-02-17 10:08:43 Outpatient SIMONA KATE [facility] [id number] [facility] 2022-02-17 10:00:00 2022-02-17 10:08:43 Office Visit Provider, Ang-Rmchp Simona Villa [facility] PIGGERY WORKER [facility] 1..114 350.1.13.10 4.2.7.2.686 [id number] [facility] 2022-02-11 00:00:00 2022-02-11 00:00:00 Case Management Simona Aparicio [facility] PIGGERY WORKER [facility] MATERNAL & CHILD [facility] 1.840.114 350.1.13.10 4.2.7.2.686 [id number] 107 [id number] [facility] 2022-02-10 15:30:00 2022-02-10 16:18:34 Outpatient R SIMONA APARICIO [facility] [id number] [facility] 2022-02-10 15:30:00 2022-02-10 16:18:34 Office Visit Provider, Ang-Rmchp Temp Simona Aparicio [facility] PIGGERY WORKER [facility] 1.840.114 350.1.13.10 4.2.7.2.686 [id number] [facility] 2022-01-19 00:00:00 2022-01-19 00:00:00 Orders Only Doctor Unassigned, [place] [facility] 1.840.114 350.1.13.10 4.2.7.2.686 [id number] [facility] 2021-12-31 09:40:00 2021-12-31 09:40:00 Outpatient R UNKNOWN, ATTENDING [facility] [id number] [facility] 2021-12-30 00:00:00 2021-12-30 00:00:00 Patient Secure Msg Hellen Woods [facility] PIGGERY WORKER [facility] & CHILD [facility] 1.840.114 350.1.13.10 4.2.7.2.686 [id number] 107 [id number] [facility] 2021-09-22 12:17:01 2021-09-22 23:59:00 Outpatient R LYUDMILA MONTOYA [facility] [id number] [facility] 2021-09-22 12:17:01 2021-09-22 23:59:00 Hospital Encounter Lyudmila Montoya [facility] 1.840.114 350.1.13.10 4.2.7.2.686 [id number] [facility] 2021-09-22 00:00:00 2021-09-22 00:00:00 Outpatient R LYUDMILA MONTOYA [facility] [id number] [facility] 2021-06-30 12:45:00 2021-06-30 13:32:57 Outpatient R LYUDMILA MONTOYA [facility] [id number] [facility] 2021-06-30 12:45:00 2021-06-30 12:45:00 Outpatient R LYUDMILA MONTOYA [facility] [id number] [facility] 2021-06-30 09:15:00 2021-06-30 09:49:37 Outpatient R LYUDMILA MONTOYA [facility] [id number] [facility] 2021-06-30 09:15:00 2021-06-30 09:49:37 Office Visit Lyudmila Montoya [facility] PIGGERY WORKER [facility] 1..840.114 350.1.13.10 4.2.7.2.686 [id number] 107 [id number] [facility] 2021-06-30 09:15:00 2021-06-30 09:49:37 Outpatient R LYUDMILA MONTOYA [facility] [id number] [facility] 2021-06-30 09:15:00 2021-06-30 09:49:37 Outpatient R LYUDMILA MONTOYA [facility] [id number] [facility] 2021-06-30 00:00:00 2021-06-30 00:00:00 Orders Only Doctor Unassigned, [place] [facility] ..840.114 350.1.13.10 4.2.7.2.686 [id number] [facility] 2021-06-02 00:00:00 2021-06-02 00:00:00 Case Management Rachana Teague [facility] 1..114 350.1.13.10 4.2.7.2.686 [id number] [facility] 2021-05-26 10:15:00 2021-05-26 10:54:44 Office Visit Lyudmila Montoya [facility] PIGGERY WORKER [facility] MATERNAL & CHILD HEALTH [facility] 1..114 350.1.13.10 4.2.7.2.686 [id number] 107 [id number] [facility] 2021-05-26 10:15:00 2021-05-26 10:54:44 Outpatient R LYUDMILA MONTOYA [facility] [id number] [facility] 2021-05-26 10:15:00 2021-05-26 10:15:00 Outpatient LYUDMILA MACHUCA [facility] [id number] [facility] 2021-05-26 00:00:00 2021-05-26 00:00:00 Orders Only Doctor Unassigned, [place] [facility] 1.114 350.1.13.10 4.2.7.2.686 [id number] [facility] 2021-05-21 10:00:00 2021-05-21 10:00:00 Outpatient LYUDMILA MACHUCA [facility] [id number] [facility] 2021-01-12 15:00:00 2021-01-12 17:49:00 Emergency Sergio Calloway [facility] 1.114 350.1.13.10 4.2.7.2.686 [id number] [facility] 2020-08-24 00:00:00 2020-08-24 00:00:00 Patient Secure Msg Hellen Woods [facility] PIGGERY WORKER [facility] MATERNAL & CHILD HEALTH [facility] 1.2.840.114 350.1.13.10 4.2.7.2.686 [id number] 107 [id number] [facility] 2020-07-10 12:30:00 2020-07-10 12:30:00 Outpatient R [facility] [id number] [facility] 2020-06-23 00:00:00 2020-06-23 00:00:00 Patient Outreach Tye Travis [facility] ..114 350.1.13.10 4.2.7.2.686 [id number] [facility] 2020-06-03 10:28:44 2020-06-03 11:00:41 Office Visit Hellen Woods [facility] PIGGERY WORKER [facility] MATERNAL & CHILD [facility] .84.114 350.1.13.10 4.2.7.2.686 [id number] [facility] 2020-06-03 10:45:00 2020-06-03 10:45:00 Outpatient R HELLEN WOODS [facility] [id number] [facility] 2020-06-03 10:45:00 2020-06-03 10:45:00 Outpatient R WOODSHELLEN [facility] [id number] [facility] 2020-06-02 00:00:00 2020-06-02 00:00:00 Patient Secure Msg Doctor Unassigned, [place] [facility] PIGGERY WORKER [facility] ..114 350.1.13.10 4.2.7.2.686 [id number] 107 [id number] [facility] 2020-06-01 00:00:00 2020-06-01 00:00:00 Patient Secure Msg Doctor Unassigned, [place] [facility] PIGGERY WORKER [facility] .840.114 350.1.13.10 4.2.7.2.686 [id number] [facility] 2020-04-15 14:30:00 2020-04-15 14:30:00 Outpatient R WOODSHELLEN [facility] [id number] [facility] 2020-04-15 14:30:00 2020-04-15 14:30:00 Outpatient R PEGGY CHECOMORGAN [facility] [id number] [facility] 2020-04-14 13:30:00 2020-04-14 13:30:00 Outpatient R WOODSCHECOMORGAN [facility] [id number] [facility] 2020-04-09 13:30:00 2020-04-09 13:30:00 Outpatient R WOODSHELLEN [facility] [id number] [facility] 2020-04-07 13:45:00 2020-04-07 13:45:00 Outpatient [place] FRANCIS [facility] [id number] [facility] 2020-04-05 06:31:00 2020-04-05 06:45:00 Emergency Rosalina Mora [facility] 1.840.114 350.1.13.10 4.2.7.2.686 [id number] [facility] 2020-04-05 06:31:00 2020-04-05 06:45:00 Emergency Rosalina Mora [facility] 1..840.114 350.1.13.10 4.2.7.2.686 [id number] 2020-04-01 00:00:00 2020-04-01 00:00:00 Patient Secure Msg Doctor Unassigned, [place] [facility] PIGGERY WORKER [facility] MATERNAL & CHILD HEALTH [facility] 1.2.840.114 350.1.13.10 4.2.7.2.686 [id number] [facility] 2020-03-16 13:09:12 2020-03-16 14:29:45 Office Visit Hellen Woods [facility] PIGGERY WORKER [facility] 1.2.840.114 350.1.13.10 4.2.7.2.686 [id number] [facility] 2020-03-16 13:09:12 2020-03-16 14:29:45 Office Visit Hellen Woods [facility] PIGGERY WORKER [facility] 1.2.840.114 350.1.13.10 4.2.7.2.686 [id number] 2020-03-16 13:15:00 2020-03-16 13:15:00 Outpatient R HELLEN WOODS [facility] [id number] [facility] 2020-03-16 00:00:00 2020-03-16 00:00:00 Orders Only Doctor Unassigned, [place] [facility] 1.2840.114 350.1.13.10 4.2.7.2.686 [id number] [facility] 2018-12-19 00:00:00 2018-12-19 00:00:00 Telephone [place] Mora [facility] 1.2840.114 350.1.13.10 4.2.7.2.686 [id number] [facility] 2018-12-11 00:00:00 2018-12-11 00:00:00 Orders Only Doctor Unassigned, [place] [facility] 1.2840.114 350.1.13.10 4.2.7.2.686 [id number] [facility] 2018-10-31 15:40:31 2018-10-31 15:57:46 Office Visit Houston Mora [facility] PIGGERY WORKER [facility] 1.2.840.114 350.1.13.10 4.2.7.2.686 [id number] [facility] Results Test Description Test Time Test Comments Results Result Co mments Source [facility] [id number] 16:51:00* Test Item Value Reference Range Interpretation Comme nts POCT PREG (test code = 1605) Negative On board controls acceptable with C Line (test code = 3574) Yes POCT PREG LOT # (test code = 3575) POCT PREG TEST DATE ( test code = 3576) [facility] [id number] 16:51:00* Test Item Value Reference Range Interpretation Comme nts POCT PREG (test code = 1605) Negative On board controls acceptable with C Line (test code = 3574) Yes POCT PREG LOT # (test code = 3575) POCT PREG TEST DATE ( test code = 3576) [facility] WITH [id number] 05:59:31* Test Item Value Reference Range Interpretation [...] g/dL 31.6-35.1 L RDW-SD (test code = 93344-0) 39.0 fL 39.0-49.9 RDW-CV (test code = 788-0) 12.2 % 12.0-15.5 PLT (test code = 777-3) 373 See_Comment H [Automated messa ge] The system which generated this result transmitted reference range: 166 - 358 10*3/?L. The reference range was not used to interpret this result as normal/abnormal. MPV (test code = 26417-2) 12.3 fL 9.5-12.9 NRBC/100 WBC (test code = 8730974010) 0.0 See_Comment [Automated [employer] ssage] The system which generated this result transmitted reference range: 0.0 - 10.0 /100 WBCs. The reference range was not used to interpret this result as normal/abnormal. NRBC x10^3 (test code = 7127920724) See_Comment [Automated messa ge] The system which generated this result transmitted reference range: 10*3/?L. The reference range was not used to interpret this result as normal/abnormal. GRAN MAT (NEUT) % (test code = 770-8) 64.0 % IMM GRAN % (test code = 6432763782) 0.30 % LYMPH % (test code = 736-9) 27.5 % MONO % (test code = 5905-5) 5.8 % EOS % (test code = 713-8) 1.7 % BASO % (test code = 706-2) 0.7 % GRAN MAT x10^3(ANC) (test code = 2764935291) 5.48 10*3/uL 1.88-7.09 IMM GRAN x10^3 (test code = 0178158841) 0.03 10*3/uL 0.00-0.06 LYMPH x10^3 (test code = 731-0) 2.36 10*3/uL 1.32-3.29 MONO x10^3 (test code = 742-7) 0.50 10*3/uL 0.33-0.92 EOS x10^3 (test code = 711-2) 0.15 10*3/uL 0.03-0.39 BASO x10^3 (test code = 704-7) 0.06 10*3/uL 0.01-0.07 Lab Interpretation (test code = 72999-5) Abnormal [facility] (D) IMMUNE [id number] 19:41:02* Test Item Value Reference Range Interpretation Comme nts RHIG CANDIDATE? (test code = 5188) No- see comment Patient is not a candidate for RhIg- Patient is Rh Positive.Performed at [facility] Laboratory Services - [facility] Blood [address] [address]Ivhw Free: [phone] No. [id number] [facility] SYPHIL[facility] [id number] 14:55:03* Test Item Value Reference Range Interpretation Comme nts Syphilis IgG/IgM (test code = 12344-8) Non-reactive Non-reactive TIMOTHY (test code = TIMOTHY) Non-reactive - No serologic evidence of T. pallidum infection. Cannot exclude incubating or early syphilis. Submit a second specimen in 2-4 weeks if syphilis is clinically suspected. Equivocal - Further testing to follow. Reactive - Further testing to follow. Lab Interpretation (test code = 99517-7) Normal [facility] Hospital[facility] [id number] 14:36:22* Test Item Value Reference Range Interpretation Comme nts BASE EXCESS, CORD (test code = 4793108203) -6.6 mEq/L AC PH, CORD (BEAKER) (test code = 7098001051) 7.25 7.18-7.38 PC02, CORD (test code = 3088733109) 49 See_Comment [Automated messa ge] The system which generated this result transmitted reference range: 32 - 66 mmHg. The reference range was not used to interpret this result as normal/abnormal. PO2, CORD (test code = 7564286231) 21 See_Comment [Automated messa ge] The system which generated this result transmitted reference range: 10 - 30 mmHg. The reference range was not used to interpret this result as normal/abnormal. BICARBONATE, CORD (test code = 0671370348) 21 See_Comment [Automated messa ge] The system which generated this result transmitted reference range: 17 - 27 mEq/L. The reference range was not used to interpret this result as normal/abnormal. [facility] Hospital[facility] Cord [id number] 14:35:01* Test Item Value Reference Range Interpretation Comme nts VENOUS BASE EXCESS, CORD (test code = 4187953351) -3.6 mEq/L VENOUS PH, CORD (test code = 8300448406) 7.36 7.25-7.45 VENOUS PC02, CORD (test code = 2743916932) 39 See_Comment [Automated messa ge] The system which generated this result transmitted reference range: 27 - 49 mmHg. The reference range was not used to interpret this result as normal/abnormal. VENOUS PO2, CORD (test code = 3343618333) 32 See_Comment [Automated me ssage] The system which generated this result transmitted reference range: 17 - 41 mmHg. The reference range was not used to interpret this result as normal/abnormal. VENOUS BICARBONATE, CORD (test code = 6795308086) 21 See_Comment [Automated messa ge] The system which generated this result transmitted reference range: 12 - 29 mEq/L. The reference range was not used to interpret this result as normal/abnormal. [facility]HIV [facility]/2 AG-AB WITH [id number] 00:43:22* Test Item Value Reference Range Interpretation Comme nts HIV Semi-quantitative (test code = 28023-0) 0.09 Negative TIMOTHY (test code = TIMOTHY) Non-reactive for HIV-1 antigen and HIV-1/HIV-2 antibodies. ?No laboratory evidence of HIV infection. ?Repeat in 2-4 weeks if acute HIV infection is suspected. [facility] HospitalHepatitis B Surface [id number] 23:04:25 * Test Item Value Reference Range Interpretation Comme nts HBsAg Semi-Quantitative (vida t code = 5195-3) 0.17 Negative [facility] HospitalCBC with [id number] 21:44:01* Test Item Value Reference Range Interpretation [...] 34.0 g/dL 31.6-35.1 RDW-SD (test code = 04280-3) 39.6 fL 39.0-49.9 RDW-CV (test code = 788-0) 12.9 % 12.0-15.5 PLT (test code = 777-3) 290 See_Comment [Automated message] The system which generated this result transmitted reference range: 166 - 358 10*3/?L. The reference range was not used to interpret this result as normal/abnormal. MPV (test code = 69490-7) 12.0 fL 9.5-12.9 NRBC/100 WBC (test code = 7028771733) 0.0 See_Comment [Automated message] The system which generated this result transmitted reference range: 0.0 - 10.0 /100 WBCs. The reference range was not used to interpret this result as normal/abnormal. NRBC x10^3 (test code = 7008639716) See_Comment [Automated message] The system which generated this result transmitted reference range: 10*3/?L. The reference range was not used to interpret this result as normal/abnormal. GRAN MAT (NEUT) % (test code = 770-8) 74.5 % IMM GRAN % (test code = 0920616556) 1.40 % LYMPH % (test code = 736-9) 18.1 % MONO % (test code = 5905-5) 5.1 % EOS % (test code = 713-8) 0.6 % BASO % (test code = 706-2) 0.3 % GRAN MAT x10^3(ANC) (test code = 1028729310) 11.92 10*3/uL 1.88-7.09 H IMM GRAN x10^3 (test code = 7298169824) 0.23 10*3/uL 0.00-0.06 H LYMPH x10^3 (test code = 731-0) 2.90 10*3/uL 1.32-3.29 MONO x10^3 (test code = 742-7) 0.82 10*3/uL 0.33-0.92 EOS x10^3 (test code = 711-2) 0.10 10*3/uL 0.03-0.39 BASO x10^3 (test code = 704-7) 0.05 10*3/uL 0.01-0.07 Lab Interpretation (test code = 53307-4) [facility] [id number] 21:39:00 * Test Item Value Reference Range Interpretation Comme nts ABO & RH (test code = 20) B POSITIVE IAT (test code = 1185) [facility] [id number] 13:41:00* Test Item Value Reference Range Interpretation [...] U APPEAR (test code = 3267) . [facility] [id number] 16:09:00* Test Item Value Reference Range Interpretation [...] U APPEAR (test code = 3267) . [facility] URINALYSIS W SPECIFIC [id number] 16:06:00* Test Item Value Reference Range Interpretation [...] POCT U APPEAR (test code = 3267) [facility] URINALYSIS W SPECIFIC [id number] 12:55:00* Test Item Value Reference Range Interpretation [...] U APPEAR (test code = 3267) . [facility] URINALYSIS W SPECIFIC [id number] 12:55:00* Test Item Value Reference Range Interpretation [...] U APPEAR (test code = 3267) . [facility] URINALYSIS W SPECIFIC [id number] 15:58:00* Test Item Value Reference Range Interpretation [...] U APPEAR (test code = 3267) . [facility] URINALYSIS W SPECIFIC [id number] 15:58:00* Test Item Value Reference Range Interpretation [...] U APPEAR (test code = 3267) . [facility] URINALYSIS W SPECIFIC [id number] 15:02:00* Test Item Value Reference Range Interpretation [...] U APPEAR (test code = 3267) . [facility] URINALYSIS W SPECIFIC [id number] 16:18:00* Test Item Value Reference Range Interpretation [...] U APPEAR (test code = 3267) . [facility] URINALYSIS W SPECIFIC [id number] 16:18:00* Test Item Value Reference Range Interpretation [...] U APPEAR (test code = 3267) . [facility] URINALYSIS W SPECIFIC [id number] 16:18:00* Test Item Value Reference Range Interpretation [...] U APPEAR (test code = 3267) . [facility] URINALYSIS W SPECIFIC [id number] 15:26:00* Test Item Value Reference Range Interpretation [...] U APPEAR (test code = 3267) . [facility] URINALYSIS W SPECIFIC [id number] 15:26:00* Test Item Value Reference Range Interpretation [...] U APPEAR (test code = 3267) . [facility] URINALYSIS W SPECIFIC [id number] 15:26:00* Test Item Value Reference Range Interpretation [...] U APPEAR (test code = 3267) . [facility] URINALYSIS W SPECIFIC [id number] 15:26:00* Test Item Value Reference Range Interpretation [...] U APPEAR (test code = 3267) . [facility] URINALYSIS W SPECIFIC [id number] 14:46:00* Test Item Value Reference Range Interpretation [...] U APPEAR (test code = 3267) . [facility] URINALYSIS W SPECIFIC [id number] 14:46:00* Test Item Value Reference Range Interpretation [...] U APPEAR (test code = 3267) . [facility] URINALYSIS W SPECIFIC [id number] 15:10:00* Test Item Value Reference Range Interpretation [...] U APPEAR (test code = 3267) . [facility] URINALYSIS W SPECIFIC [id number] 15:10:00* Test Item Value Reference Range Interpretation [...] U APPEAR (test code = 3267) . [facility] URINALYSIS W SPECIFIC [id number] 15:10:00* Test Item Value Reference Range Interpretation [...] U APPEAR (test code = 3267) . [facility] URINALYSIS W SPECIFIC [id number] 15:10:00* Test Item Value Reference Range Interpretation [...] U APPEAR (test code = 3267) . [facility] URINALYSIS W SPECIFIC [id number] 15:34:00* Test Item Value Reference Range Interpretation [...] U APPEAR (test code = 3267) . [facility] URINALYSIS W SPECIFIC [id number] 15:34:00* Test Item Value Reference Range Interpretation [...] U APPEAR (test code = 3267) . [facility] URINALYSIS W/O SPECIFIC [id number] 15:45:00* Test Item Value Reference Range Interpretation [...] = 3257) Trace Negative - Negati ve [facility] [id number] 15:44:00* Test Item Value Reference Range Interpretation Comme nts POCT PREG (test code = 1605) Positive On board controls acceptable with C Line (test code = 3574) Yes POCT PREG LOT # (test code = 3575) POCT PREG TEST DATE ( test code = 3576) [facility] [id number] 15:48:00* Test Item Value Reference Range Interpretation Comme nts POCT PREG (test code = 1605) Negative On board controls acceptable with C Line (test code = 3574) Yes POCT PREG LOT # (test code = 3575) POCT PREG TEST DATE ( test code = 3576) [facility] [id number] 15:48:00* Test Item Value Reference Range Interpretation Comme nts POCT PREG (test code = 1605) Negative On board controls acceptable with C Line (test code = 3574) Yes POCT PREG LOT # (test code = 3575) POCT PREG TEST DATE ( test code = 3576) [facility] [id number] 22:27:00* Test Item Value Reference Range Interpretation Comme nts POCT PREG (test code = 1605) Negative On board controls acceptable with C Line (test code = 3574) Yes POCT PREG LOT # (test code = 3575) POCT PREG TEST DATE ( test code = 3576) [id number] 22:27:00* Test Item Value Reference Range Interpretation Comme nts POCT PREG (test code = 1605) Negative On board controls acceptable with C Line (test code = 3574) Yes POCT PREG LOT # (test code = 3575) POCT PREG TEST DATE ( test code = 3576) [facility] History and Physical Notes Date/Time Note Provider Source 2022-11-28 12:51:05 Formatting of this n ote is different from the original. ANTEPARTUM HISTORY & PHYSICAL IDENTIFYING DATA Marla Harmon is 21 year old, /White, 36w4d, female with MIROSLAVA 12/22/2022, by Ultrasound. : 2000 Primary Care Physician: Lyudmila Velásquez [facility] Day: 1 CHIEF COMPLAINT contractions HISTORY OF PRESENT ILLNESS 21 year old @36w4d presents as a transfer from [facility]. Pt states contractions have decreased and just [...] 0 % % Station - -4 by DIRECTOR INDUSTRIAL OF LABORATORY, PATHOLOGY, AND RADIOLOGY DATA Lab [...] home with labor warnings Lucille Foster MD [facility] Procedure Notes Date/Time Note Provider Source 2022-12-16 01:04:12 Associated Order(s): Central Neuraxial Block Central Neuraxial Block Date/Time: 12/16/2022 1:04 AM Performed by: Marcus De Leon MD Authorized by: Hiram Foster MD Patient Location: OB End Time: 12/16/2022 1:04 AM Reason for Block: OB request, Patient request, Labor analgesia, Surgical anesthesia and Post-op pain management Staff: Anesthesiologist: Hiram Foster MD Resident/FIRE FIGHTING EQUIPMENT SPECIALIST: Marcus De Leon MD Performed by: resident/FIRE FIGHTING EQUIPMENT SPECIALIST Preanesthetic Checklist: patient identified, IV checked, risks [...] and catheter Guidance with: landmark technique} Epidural/Spinal Redbird and/or Catheter: Epidural/Spinal Kit: Lorna Needle Type: [...] PCEA explained and fall precautions given. AN-ANESTHESIOLOGY [facility] Notes Date/Time Note Provider Source 2022-12-19 11:34:57 Formatting of this n ote might be different from the original. Pt calling, requesting work excuse for her partner Maxi Blakely for date of IOL. Letter prepared and sent via [employer]. Rosemary Rose RN 12/19/22 11:36 AM [facility] 2022-12-19 11:18:36 Formatting of this n ote might be different from the original. Marla Harmon is a 21 year old female calling requesting excuse letter for being at the delivering of baby on 12/15. Please contact patient at [phone] Toña Lam [facility] 2022-12-17 14:15:17 Formatting of this n ote [...] Outcome: Adequate for discharge Darline Leon RN [facility] 2022-12-17 14:00:00 Formatting of this n ote [...] recommended to apply for WIC Delivery method Oral Assessment Oral assessment New [...] Nipple Colostrum visible;Intact;Everted;Justyna rt Literature Resources Resources guide;[employer] channel Education 6 months exclusive , up to and beyond 1 year with complimentary foods;Infant hunger cues;On-demand feeds at least 8 or more over 24 hours;Diaper counts/color;Lactogenesis; Benefits of skin to skin contact;Encouraged rooming-in;Waking techniques;Signs of an effective latch;Infant stomach size;Post circumcision feeding patterns;2nd day/growth spurt cluster feeds 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 Observation Reported;Mom states infant latches well with [...] will call staff;Apply to WIC services after discharge;[facility] warmline;[employer] Recommended Feeding Plan Recommended feeding plan On-demand , 8-12 times in 24 hours not to exceed 6 hours between feeds;Frequent btzu-[id number]-[id number] time with parents Nakia Mayes RN, BSN, IBCLC Nakia Mayes RN [facility] 2022-12-16 17:10:13 Formatting of this n ote [...] Progressing as expected Luis Daniel Berry RN [facility] 2022-12-16 11:41:25 Formatting of this n ote is different from the original. Patient: Marla Harmon Procedure Summary Date: 12/16/22 Room / Location: Anesthesia Start: 33 Anesthesia Stop: 1121 Procedure: CENTRAL NEURAXIAL BLOCK [...] precautions given Michelle Ford MD AN-ANESTHESIOLOGY ANESTHESIOLOGIST [facility] 2022-12-16 10:16:16 Formatting of this n ote [...] shoulder and body. After the delivery of , bulb suction was performed from ororpharynx and [...] present for and supervised the entire procedure(s). [facility] 2022-12-16 08:58:33 Formatting of this n ote [...] Outcome: Progressing as expected Debbie Jansen RN [facility] 2022-12-15 23:52:58 Formatting of this n ote is different from the original. 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 ? sIOL - Denies VB, LOF, Ctx, DFM - SVE: 2 / 25% / -3 - [place]: quiescent - Plan: IOL w/ FB and pitocin ? GBS positive - PCN intrapartum ? Hx Trich - positive 05/2022, s/p tx - BOB negative ? Antepartum course reviewed - 1 h 75, sero negative, Rimmune, VZVimmune, B positive/IAT negative, GBS positive, Pap NILM 03/16/20 - H/H, plt: 10.1 / 31.0, 253 on 11/23/22 - [facility] ? Fetus - Presentation on [...] to surgery. Hold on DOS. Phentermine: Alert [facility] anesthesiologist SGLT2 Inhibitors: "gliflozins" to be held [...] & antiemetics Recovery Plan: LDR Additional comments: AN-ANESTHESIOLOGY ANESTHESIOLOGIST [facility] 2022-12-15 18:49:22 Formatting of this n ote [...] in pain sensation Outcome: Progressing as expected [facility] 2022-12-15 15:42:58 Formatting of this n ote [...] in pain sensation Outcome: Progressing as expected [facility]
[2025-01-02 11:43] LABS: Absolute Lymphocytes (CBC) 0.8 K/uL (0.7-4.9); Hematocrit 38.8 % (36.0-45.0); Hemoglobin 12.7 g/dL (12.0-15.0); MCH 25.8 pg (27.0-35.0); MCHC 32.7 g/dL (32.0-36.0); MCV 78.9 fL (80-100); MPV 10.0 fL (7.6-11.3); Nucleated RBC Absolute Count 0.0 (0-0); Nucleated Red Blood Cells % 0.0 % (0-0); RBC Red Blood Cell Count 4.92 M/uL (3.86-4.86); White Blood Count 4.80 thou/uL (4.3-10.9)
[2025-01-02 12:02] LABS: ALT/SGPT 26.0 U/L (13-56); AST/SGOT 15.0 U/L (15-37); Albumin 3.5 g/dL (3.4-5.0); Albumin/Globulin Ratio 0.9 (1.1-1.8); Alkaline Phosphatase 53.0 U/L (45-117); Anion Gap 6.5 mEq/L (5.0-15.0); BUN Blood Urea Nitrogen 9.0 mg/dL (7-18); Globulin 4.0 g/dL (2.3-3.5); Glucose Level 95.0 mg/dL (74-106); Lipase 23.0 U/L (13-75); Potassium 3.5 mEq/L (3.5-5.1)
[2025-01-02] MEDS ORDERED: ONDANSETRON 4 MG/2 ML VIAL ONE (12:34)
[2025-01-02] MEDS ORDERED: NA CHLORIDE 0.9% 1,000 ML ONE (12:35)
[2025-01-02 14:00] LABS: Sqamous Epithelial 20-50 /HPF (None Seen); Urine Crystals Unidentified Few /HPF (None Seen); Urine Culture Reflex Order REFLEXED; Urine Microscopic Reflex YN ORDER UMIC; Urine WBC Clump Few /HPF (None Seen); Urine Yeast (Budding) Few /HPF (None Seen)
[2025-01-02] MEDS ORDERED: CEFTRIAXONE 1000 MG/VIAL ONE (14:38)
[2025-01-02] MEDS ORDERED: NA CHLORIDE 0.9% 50 ML ONE (14:38)
--- NOTE | 2025-01-02 14:59 | EDPHYS ---
Physician Documentation [facility] Name: Marla Harmon Age: 24 yrs Sex: Female : 2000 Arrival Date: 01/02/2025 Time: 10:44 Bed 15 Private MD: ED Physician Kristian Waller HPI: 01/02 11:11 This 24 yrs old Female presents to ER via Ambulatory with complaints of dr5 Abdominal Pain, Vomiting/Diarrhea. 11:11 The patient presents with abdominal pain. Onset: The symptoms/episode began/occurred dr5 yesterday. Patient is a 24-year-old female with no past medical history coming in with nausea, vomiting, diarrhea that started 2 days ago. Patient reports she works at [employer] and feels like she has been around sick coworkers. Patient reports headache in which she took Tylenol this morning with mild relief. Patient denies taking medication prior to arrival. Patient states that she thinks that she is might be dehydrated. Patient reports urinary frequency.. Historical: - Allergies: 11:08 NKDA; bp - Immunization history:: Adult Immunizations up to date. - Infectious Disease History:: Denies. - Social history:: Smoking status: Patient denies any tobacco usage or history of. ROS: 11:11 Constitutional: as per hpi dr5 Exam: 11:11 Constitutional: This is a well developed, well nourished patient who is awake, alert, dr5 and in no acute distress. Head/Face: Normocephalic, atraumatic. Eyes: Pupils equal round and reactive to light, extra-ocular motions intact. Lids and lashes normal. Conjunctiva and sclera are non-icteric and not injected. Cornea within normal limits. Periorbital areas with no swelling, redness, or edema. ENT: Nares patent. No nasal discharge, no septal abnormalities noted. Tympanic membranes are normal and external auditory canals are clear. Oropharynx with no redness, swelling, or masses, exudates, or evidence of obstruction, uvula midline. Mucous membranes moist. Neck: Trachea midline, no thyromegaly or masses palpated, and no cervical lymphadenopathy. Supple, full range of motion without nuchal rigidity, or vertebral point tenderness. No Meningismus. Chest/axilla: Normal chest wall appearance and motion. Nontender with no deformity. No lesions are appreciated. Cardiovascular: Regular rate and rhythm with a normal S1 and S2. Normal PMI, no JVD. No pulse deficits. Respiratory: Lungs have equal breath sounds bilaterally, clear to auscultation. No rales, rhonchi or wheezes noted. No increased work of breathing, no retractions or nasal flaring. Abdomen/GI: Soft, non-tender, non-distended Back: No spinal tenderness. No costovertebral tenderness. Full range of motion. Skin: Warm, dry with normal turgor. Normal color with no rashes, no lesions, and no evidence of cellulitis. MS/ Extremity: Pulses equal, no cyanosis. Neurovascular intact. Full, normal range of motion. Neuro: Awake and alert, GCS 15, oriented to person, place, time, and situation. Cranial nerves II-XII grossly intact. Motor strength 5/5 in all extremities. Sensory grossly intact. Cerebellar exam normal. Normal gait. Vital Signs: 11:07 BP 112 / 73; Pulse 106; Resp 18; Temp 98.4; Pulse Ox 100% ; bp 13:18 BP 113 / 80; Pulse 88; Resp 18; Pulse Ox 100% ; rg5 15:00 BP 139 / 80; Pulse 85; Resp 17; Pulse Ox 100% ; rg5 MDM: 10:51 Medical Screening Exam initiated dr5 15:01 Differential diagnosis: urinary tract infection, Dehydration, anemia, pancreatitis, dr5 acute kidney injury. Data reviewed: vital signs, nurses notes, lab test result(s), amylase and lipase, CBC, white blood cell count, hemoglobin, hematocrit, platelets, electrolytes, sodium, potassium, chloride, serum bicarbonate, BUN, creatinine, serum glucose, urinalysis, bacteruria, UPT: negative. Consideration of Admission/Observation Escalation of care including admission/observation considered. Escalation considered patient found to have acute kidney injury. I considered the following discharge prescriptions or medication management in the emergency department I discussed and recommended Over The Counter medications, Medications were administered in the Emergency Department. See MAR. Care significantly affected by the following chronic conditions:. Care significantly affected by the following Social Determinants of Health: Poor access to healthcare and/or lack of insurance, Poor access to transportation, Problems related to employment. Counseling: I had a detailed discussion with the patient and/or guardian regarding the historical points, exam findings, and any diagnostic results supporting the discharge/admit diagnosis, the presence of at least one elevated blood pressure reading (>120/80) during this emergency department visit, lab results, the need for outpatient follow up, for definitive care, a family practitioner, to return to the emergency department if symptoms worsen or persist or if there are any questions or concerns that arise at home. Medication response: Rocephin, normal saline. Response to treatment: the patient's symptoms have markedly improved after treatment. Special discussion: I discussed with the patient/guardian in detail that at this point there is no indication for admission to the hospital. It is understood, however, that if the symptoms persist or worsen the patient needs to return immediately for re-evaluation. Based on the history and exam findings, there is no indication for further emergent testing or inpatient evaluation. I discussed with the patient/guardian the need to see the primary care provider for further evaluation of the symptoms. ED course: Patient found to have urinary tract infection. Rocephin IV given in the ER while fluids were going. Will give patient Keflex as well as Diflucan for urinary tract infection as well as vaginal Nunu. All question answered. Strict ER precautions given.. 01/02 10:54 Order name: CBC with Diff; Complete Time: 12:07 dr5 01/02 10:54 Order name: CMP; Complete Time: 12:07 dr5 01/02 10:54 Order name: Lipase; Complete Time: 12:07 dr5 01/02 10:54 Order name: Test, Urine; Complete Time: 13:58 dr5 01/02 10:54 Order name: UA Rfx Ernie Cult if indicated; Complete Time: 14:01 dr5 01/02 14:04 Order name: Urine Culture EDDC 01/02 10:54 Order name: IV Saline Lock; Complete Time: 11:31 dr5 01/02 10:54 Order name: Labs collected and sent; Complete Time: 11:31 dr5 Administered Medications: 13:02 Drug: NS 0.9% IV 1000 ml IV at 1 bolus Per protocol; to be given as a bolus over 60 rg5 minutes Route: IV; Rate: 1 bolus; Site: right antecubital; 14:43 Follow up: IV Status: Completed infusion; IV Intake: 1000ml rg5 13:03 Drug: Ondansetron IVP 4 mg IVP once; over 2 minutes Route: IVP; Site: right antecubital;rg5 14:03 Follow up: Response: No adverse reaction rg5 14:39 Drug: Rocephin IV 1 grams IV at per protocol once; Given slow IV push per pharmacy rg5 instructions Route: IV; Rate: per protocol; Site: right antecubital; 15:11 Follow up: IV Status: Completed infusion; IV Intake: 50ml rg5 Disposition: 18:40 Co-signature as Attending Physician, Kristian Waller MD I reviewed the patient's care rn provided by the Advanced Practice Provider and agree with the diagnosis and treatment plan. Disposition Summary: 01/02/25 14:59 Discharge Ordered Notes: Location: Home dr5 Condition: Stable dr5 Diagnosis - UTI/ Urinary tract infection, site not specified dr5 Followup: dr5 - With: Emergency Department - When: As needed - Reason: Worsening of condition Followup: dr5 - With: Private Physician - When: 1 - 2 days - Reason: Recheck today's complaints, Continuance of care, Re-evaluation by your physician Discharge Instructions: - Discharge Summary Sheet dr5 - Vaginal Yeast Infection, Adult dr5 - Urinary Tract Infection, Adult, [id number] dr5 Forms: - Work release form dr5 - Medication Reconciliation Form dr5 - Antibiotic Education dr5 - Patient Portal Instructions dr5 - Leadership Thank You Letter dr5 Prescriptions: - Cephalexin 500 mg Oral Capsule - take 1 capsule ORAL route every 12 hours for 10 days; 20 capsule; Refills: 0, dr5 Product Selection Permitted - Fluconazole 150 mg Oral tablet - take 1 tablet ORAL route one time; 1 tablet; Refills: 0, Product Selection dr5 Permitted Signatures: Dispatcher [employer] Kristian Figueroa MD MD rn Peltier, Brian RN Satinder Fitzpatrick RN RN rg5 Arsen Haywood FNP-C FNP-5 Corrections: (The following items were deleted from the chart) 11:31 10:55 Test, Urine+UC.LAB.BRZ ordered. [facility]
--- NOTE | 2025-01-02 14:59 | ER ---
Nurse's Notes [facility] Name: Marla Harmon Age: 24 yrs Sex: Female : 2000 Arrival Date: 01/02/2025 Time: 10:44 Bed 15 Private MD: Diagnosis: UTI/ Urinary tract infection, site not specified Presentation: 01/02 11:07 Chief complaint: Patient states: 2 DAYS N/V/D. Coronavirus screen: At this time, the bp client does not indicate any symptoms associated with coronavirus-19. Ebola Screen: No symptoms or risks identified at this time. Initial Sepsis Screen: Does the patient meet any 2 criteria? No. Patient's initial sepsis screen is negative. Does the patient have a suspected source of infection? No. Patient's initial sepsis screen is negative. Risk Assessment: Do you want to hurt yourself or someone else? Patient reports no desire to harm self or others. Onset of symptoms is unknown. 11:07 Method Of Arrival: Ambulatory bp 11:07 Acuity: NOLBERTO 3 bp Historical: - Allergies: 11:08 NKDA; bp - Immunization history:: Adult Immunizations up to date. - Infectious Disease History:: Denies. - Social history:: Smoking status: Patient denies any tobacco usage or history of. Screenin:19 [facility] ED Fall Risk Assessment (Adult) History of falling in the last 3 months, rg5 including since admission No falls in past 3 months (0 pts) Confusion or Disorientation No (0 pts) Intoxicated or Sedated No (0 pts) Impaired Gait No (0 pts) Mobility Assist Device Used No (0 pt) Altered Elimination No (0 pt) Score/Fall Risk Level 0 - 2 = Low Risk Oriented to surroundings, Maintained a safe environment. Abuse screen: Denies threats or abuse. Nutritional screening: No deficits noted. Tuberculosis screening: No symptoms or risk factors identified. Assessment: 13:19 General: Appears in no apparent distress. Behavior is calm, cooperative, appropriate rg5 for age. Pain: Complains of pain in abdomen. Neuro: Level of Consciousness is awake, alert, obeys commands. Cardiovascular: Denies chest pain. Respiratory: Airway is patent Respiratory effort is even, unlabored. GI: Bowel sounds present in left lower quadrant Abd is soft and non tender Abd is non tender Reports lower abdominal pain, upper abdominal pain, nausea, vomiting. : No signs and/or symptoms were reported regarding the genitourinary system. EENT: No signs and/or symptoms were reported regarding the EENT system. Derm: Skin is intact, Skin is normal. Musculoskeletal: Circulation, motion, and sensation intact. Range of motion: intact in all extremities. 15:12 Reassessment: Patient and/or family updated on plan of care and expected duration. Pain rg5 level reassessed. Patient is alert, oriented x 3, equal unlabored respirations, skin warm/dry/pink. Patient states feeling better. Patient states symptoms have improved. Vital Signs: 11:07 BP 112 / 73; Pulse 106; Resp 18; Temp 98.4; Pulse Ox 100% ; bp 13:18 BP 113 / 80; Pulse 88; Resp 18; Pulse Ox 100% ; rg5 15:00 BP 139 / 80; Pulse 85; Resp 17; Pulse Ox 100% ; rg5 ED Course: 10:48 Patient arrived in ED. al6 10:51 Arsen Haywood FNP-C 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. [facility]5 10:51 Kristian Waller MD is Attending Physician. dr5 11:08 Triage completed. bp 11:08 Arm band placed on. bp 11:30 Initial lab(s) drawn, by md, sent to lab. Inserted saline lock: 20 gauge in right rk3 antecubital area, using aseptic technique. Blood collected. Flushed with 10 mL NS. 11:31 CBC with Diff Sent. rk3 11:31 CMP Sent. rk3 11:31 Lipase Sent. rk3 13:02 Satinder Christian, RN is Primary Nurse. rg5 13:19 Patient has correct armband on for positive identification. Bed in low position. Call rg5 light in reach. Door closed. Noise minimized. 13:19 No provider procedures requiring assistance completed. rg5 15:12 IV discontinued, bleeding controlled, No redness/swelling at site. Pressure dressing rg5 applied. Administered Medications: 13:02 Drug: NS 0.9% IV 1000 ml IV at 1 bolus Per protocol; to be given as a bolus over 60 rg5 minutes Route: IV; Rate: 1 bolus; Site: right antecubital; 14:43 Follow up: IV Status: Completed infusion; IV Intake: 1000ml rg5 13:03 Drug: Ondansetron IVP 4 mg IVP once; over 2 minutes Route: IVP; Site: right antecubital;rg5 14:03 Follow up: Response: No adverse reaction rg5 14:39 Drug: Rocephin IV 1 grams IV at per protocol once; Given slow IV push per pharmacy rg5 instructions Route: IV; Rate: per protocol; Site: right antecubital; 15:11 Follow up: IV Status: Completed infusion; IV Intake: 50ml rg5 Medication: 13:19 VIS not applicable for this client. rg5 Intake: 14:43 IV: 1000ml; Total: 1000ml. rg5 15:11 IV: 50ml; Total: 1050ml. rg5 Outcome: 14:59 Discharge ordered by . dr5 15:12 Discharged to home ambulatory, rg5 15:12 Condition: stable 15:12 Discharge instructions given to patient, Instructed on discharge instructions, Demonstrated understanding of instructions, Prescriptions given X 2, 15:13 Patient left the ED. rg5 Signatures: Cedrick Adames, RN RN Satinder Sanchez RN RN rg5 Arsen Haywood, JESSA-C CHANGE MANAGEMENT MANAGER-5 Alda Lopez Rozana rk3 Corrections: (The following items were deleted from the chart) 11:31 11:31 Test, Urine+UC.LAB.OREN drawn and sent. rk3 EDMS
[2025-01-02 15:41] VITALS: TEMP 98.4; O2SAT 100
[2025-01-02 15:44] VITALS: BP 139/80
== END 2025-01-02 15:13 | disposition home or self-care (01) ==
LOC: ER 10:44
DX: N39.0 Urinary tract infection, site not specified (principal)
CPT/HCPCS: 36415; 80053; 81001; 81025; 83690; 85025; 87086; 87088; 96361; 96365; 96375; 99284; J0696; J2405; J7030